=== PATIENT | female | born 1970 | race Caucasian/White ===

== ENCOUNTER 2022-07-04 08:09 | Emergency (ER) | payer MEDICAID, SELFPAY ==
[2022-07-04 08:20] VITALS: BP 110/74; PULSE 68; RESP 18; TEMP 36.3; O2SAT 96; BMI 28.0
--- NOTE | 2022-07-04 08:47 | ED_ITS ---
HPI - Chest Pain General Chief Complaint: Chest Pain Stated Complaint: Chest pain Time Seen by Provider: 07/04/22 08:11 History of Present Illness HPI narrative: This 51-year-old female comes in reporting some brief episodes of chest discomfort that occurred a few times through the night last night. She did not have any nausea, vomiting, lightheadedness, shortness of breath, or diaphoresis. 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 She does report a dry cough that is been present over the past 5 months or so. she does not feel ill with an infection. She does occasionally have some reflux symptoms. Currently she is not having any pain but as I interviewed her initially she did have some brief episodes of pain just left of the sternal border. These lasted for a few seconds. She states that this was typical for what was happening last night. The pain was sharp and very brief. Related Data Home Medications Medication Instructions Recorded Confirmed citalopram 10 mg tablet mg 07/04/22 Allergies Allergy/AdvReac Type Severity Reaction Status Date / Time amoxicillin [From Augmentin] Allergy Verified 07/04/22 08:23 clavulanic acid Allergy Verified 07/04/22 08:23 [From Augmentin] red dye Allergy Verified 07/04/22 08:23 Review of Systems Status of ROS Reports: 10 or more systems reviewed and unremarkable except as noted in History and below Narrative Constitutional: No fevers, no weight gain or loss. Eyes: No discharge. No vision changes. HENT: No congestion, no sore throat, no ear pain. Cardiovascular: No palpitations. Chest discomfort as described above. Respiratory: No shortness of breath, no wheezes, no cough. Gastrointestinal: No abdominal pain, no vomiting, no diarrhea. Genitourinary: No dysuria, no hematuria. Musculoskeletal: Normal range of motion. Skin: No rashes, no pruritis. Neurological: No dizziness, weakness, sensory change, speech change. Endo/Heme/Allergies: No bruising or bleeding. No polydipsia. Pysch: no suicidality, no anxiety, no insomnia. All other systems reviewed and are negative. Exam Narrative Exam Narrative: Constitutional: Well-developed, well-nourished, no acute distress. HEENT: Normocephalic, atraumatic. Neck: Normal range of motion. Nontender. Supple. Heart: Regular. No murmurs. Normal rate. Intact distal pulses. Chest: She does exhibit some brief episodes of pain along the left sternal border that last just a few seconds. When palpating in this area her pain is reproducible. Lungs: Clear to auscultation. No chest discomfort. No wheezes, rhonchi, or rales. Abdomen: Normal bowel sounds. Nontender. No rebound tenderness. Genitalia: Deferred. Back: No midline tenderness. Normal range of motion. Extremities: Normal range of motion. No injury. Skin: Intact. No rash. Warm. No erythema or pallor. Neurologic: No altered sensation. No weakness. Alert and oriented. Psychiatric: No suicidality. No anxiety or depression. No insomnia. Nursing notes and vitals signs are reviewed. Const Vital Signs, click to edit/add: Vital Signs - 24 hr 07/04/22 08:20 Temperature 97.3 F L Pulse Rate [Right Pulse Oximeter] 68 Respiratory Rate 18 Blood Pressure [Right Upper Arm] 110/74 Pulse Oximetry 96 Oxygen Delivery Method Room Air Course Vital Signs Vital signs: Initial Vital Signs Temperature 97.3 F L 07/04/22 08:20 Temperature Source Temporal Artery Scan 07/04/22 08:20 Pulse Rate 68 07/04/22 08:20 Respiratory Rate 18 07/04/22 08:20 Blood Pressure 110/74 07/04/22 08:20 Blood Pressure Mean 86 07/04/22 08:20 Blood Pressure Position Supine 07/04/22 08:20 Pulse Oximetry 96 07/04/22 08:20 Oxygen Delivery Method 07/04/22 08:20 Vital Signs Temperature 97.3 F L 07/04/22 08:20 Pulse Rate 68 07/04/22 08:20 Respiratory Rate 18 07/04/22 08:20 Blood Pressure 110/74 07/04/22 08:20 Pulse Oximetry 96 07/04/22 08:20 Oxygen Delivery Method 07/04/22 08:20 Temperature 97.3 F L 07/04/22 08:20 Pulse Rate 68 07/04/22 08:20 Respiratory Rate 18 07/04/22 08:20 Blood Pressure 110/74 07/04/22 08:20 Pulse Oximetry 96 07/04/22 08:20 Oxygen Delivery Method 07/04/22 08:20 MDM - Chest Pain MDM Narrative Medical decision making narrative: This patient comes in with brief episodes of chest discomfort. She does not have any cardiac risk factors and has good exercise tolerance. Her EKG is completely normal. Her pain is very brief and somewhat reproducible. I discussed further lab and imaging options with the patient who declined these in a process of shared decision making. Her pain is more likely atypical chest pain or chest wall pain, possibly costal chondritis. ECG Data Attestation: I personally reviewed and interpreted this ECG as follows: Interpretation: Normal sinus rhythm. Rate is 67 beats per minute. There are no ST or T-wave abnormalities. Discharge Plan Discharge Clinical Impression: Acute chest wall pain Patient Disposition: Home, Self-Care Condition: Stable Additional Instructions: Use [id number] medicines as needed and directed. Follow up with MD or return if worsening. Prescriptions: No Action citalopram 10 mg tablet Follow Up/Referrals: Shanelle Renee MD [Primary Care Provider] - Stand Alone Forms: [facility] Info Instructions
== END 2022-07-04 09:17 | disposition home or self-care (01) ==
LOC: ED 09:13
PROVIDERS: Emergency Provider Emergency Medicine Emergency Medical Services; PCP Family Medicine
DX: R07.89 Other chest pain (principal)
CPT/HCPCS: 99284

== ENCOUNTER 2022-11-27 01:20 | Emergency (ER) | payer BC, SELFPAY ==
--- NOTE | 2022-11-27 01:28 | ED_ITS ---
HPI - Abdominal Pain General Time Seen by Provider: 01:28 Date Seen: 11/27/22 Chief Complaint: Abdominal Pain Stated Complaint: Abdominal pain Time Seen by Provider: 11/27/22 01:27 Source: patient Mode of arrival: ambulatory Limitations: no limitations History of Present Illness HPI narrative: 52-year-old female who comes in today with abdominal pain. Has felt poorly for the last couple of days, currently on azithromycin for possible sinus infection. Woke up a couple hours ago with crampy abdominal pain and some nausea. No vomiting, no urinary symptoms, no diarrhea. Prior C-sections. Does not smoke cigarettes. Took 2 ibuprofen for this. Related Data Home Medications Medication Instructions Recorded Confirmed citalopram 10 mg tablet 10 mg PO DAILY 07/04/22 11/27/22 azithromycin 250 mg tablet 250 mg PO DIRECTED 11/27/22 11/27/22 Allergies Allergy/AdvReac Type Severity Reaction Status Date / Time amoxicillin [From Augmentin] Allergy Mild Hives Verified 11/27/22 02:06 clavulanic acid Allergy Mild Hives Verified 11/27/22 02:06 [From Augmentin] red dye Allergy Mild Hives Verified 11/27/22 02:06 Review of Systems Status of ROS Reports: 10 or more systems reviewed and unremarkable except as noted in History and below [facility] Medical History (Updated 11/27/22 @ 02:11 by Anderson Hall MD) FELIPA (generalized anxiety disorder) ?F41.1 - Generalized anxiety disorder (ICD-10) Migraine ?G43.909 - Migraine, unspecified, not intractable, without status migrainosus (ICD-10) Surgical History (Updated 11/27/22 @ 02:02 by Vincent Ray RN) History of 2 sections ?Z98.891 - History of uterine scar from previous surgery (ICD-10) History of tonsillectomy and adenoidectomy ?Z90.89 - Acquired absence of other organs (ICD-10) Social History Smoking Status: Never smoker Do you use any of these nicotine containing products: None Second hand tobacco smoke exposure: No How often do you have a drink containing alcohol: never How often do you have six or more drinks on one occasion: Never AUDIT-C Alcohol total score: 0 Non-prescribed substance use: denies use Exam Narrative: Exam Narrative: General: Well-developed and well-nourished, no acute distress Head: Atraumatic and normocephalic Eyes: Pupils are equal reactive, extraocular motions intact, conjunctiva clear ENT: External nose and ears are normal, posterior pharynx without erythema or exudate Neck: No midline cervical tenderness, full spontaneous range of motion the neck, trachea midline, no adenopathy Heart: Regular rate and rhythm no murmurs or thrills Lungs: Clear to auscultation bilaterally without wheezes or crackles Abdomen: Soft, mild diffuse tenderness,, nondistended with active bowel sounds Musculoskeletal: No tenderness, deformity, or edema Neurologic: Awake, alert, and oriented x3, no gross focal neurologic deficits, cranial nerves intact as tested Psych: Mood and affect are appropriate Skin: No rashes Const: Vital Signs, click to edit/add: Vital Signs - 24 hr 11/27/22 01:29 11/27/22 01:30 11/27/22 02:03 Temperature 98.1 F Pulse Rate 80 Pulse Rate [Right Pulse Oximeter] 81 Respiratory Rate 16 16 Blood Pressure 151/99 H Blood Pressure [Ri ght Upper Arm] 157/96 H Pulse Oximetry 99 97 94 Oxygen Delivery Me thod Room Air Course Course Hospital Course: Patient seen and examined, prior records reviewed. Differential diagnosis in cludes but not limited to gastritis, gastric ulcer, colitis, pancreatitis, acute cholecystitis, diverticulitis, appendicitis, urinary tract infection, bowel obstruction, perforation, kidney stone. Patient presents with nausea, crampy abdominal pain started couple hours ago. Finally stable on the am, mild diffuse tenderness. Labs ordered along with CT scan, Zofran and Toradol ordered for symptom management. Reevaluation(s) Reevaluation #1: Labs independently interpreted by me demonstrate normal CBC, normal patent panel , negative lipase, basic metabolic panel is reassuring. CT scan independently interpreted by me does not demonstrate any acute intra-abdominal pathology, gallbladder is decompressed with no pericholecystic fluid. Patient will be discharged with Zofran 4 mg every 6 hours as needed for nausea vomiting, also [place] 1 tablet every 6 hours as needed for pain, follow-up within 1-2 days with primary care. Time: 02:09 Vital Signs Vital signs: Initial Vital Signs Temperature 98.1 F 11/27/22 01:29 Temperature Source Temporal Artery Scan 11/27/22 01:29 Pulse Rate 81 11/27/22 01:29 Respiratory Rate 16 11/27/22 01:29 Blood Pressure 157/96 H 11/27/22 01:29 Blood Pressure Mean 116 11/27/22 01:29 Blood Pressure Position Sitting 11/27/22 01:29 Pulse Oximetry 99 11/27/22 01:29 Oxygen Delivery Method Room Air 11/27/22 01:29 Vital Signs Temperature 98.1 F 11/27/22 01:29 Pulse Rate 81 11/27/22 01:29 Respiratory Rate 16 11/27/22 01:29 Blood Pressure 157/96 H 11/27/22 01:29 Pulse Oximetry 99 11/27/22 01:29 Oxygen Delivery Method Room Air 11/27/22 01:29 Temperature 98.1 F 11/27/22 01:29 Pulse Rate 80 11/27/22 02:03 Respiratory Rate 16 11/27/22 02:03 Blood Pressure 151/99 H 11/27/22 02:03 Pulse Oximetry 94 11/27/22 02:03 Oxygen Delivery Method Room Air 11/27/22 01:29 MDM - Abdominal Pain Lab Data Labs: Lab Results 11/27/22 Range/Units 01:38 WBC 6.66 (4.50-11.00) K/uL RBC 4.52 (4.00-5.20) m/uL Hgb 12.8 (12.0-16.0) gm/dL Hct 37.4 (33.0-51.0) % MCV 83 (80-100) fL MCH 28 (26-34) pg MCHC 34 (32-36) gm/dL RDW Coeff of Pardeep 13.3 (11.5-15.5) % Plt Count 212 (140-440) K/uL Neut % (Auto) 49.2 (42.0-72.0) % Lymph % (Auto) 30.8 (20-44) % Rankin % (Auto) 13.7 H (0.0-11.0) % Eos % (Auto) 5.7 (0.0-7.0) % Baso % (Auto) 0.3 (0.0-3.0) % Neut # (Auto) 3.28 (1.7-7.0) K/uL Lymph # (Auto) 2.05 (0.90-2.90) K/uL Rankin # (Auto) 0.90 (0.00-0.90) K/UL Eos # (Auto) 0.38 (0.00-0.50) K/uL Baso # (Auto) 0.02 (0.00-0.30) K/uL Sodium 136 (135-149) mmol/L Potassium 3.6 (3.6-5.1) mmol/L Chloride 105 (96-114) mmol/L Carbon Dioxide 24 (20-32) mmol/L BUN 14 (7-30) mg/dL Creatinine 0.7 (0.5-1.5) mg/dL Estimated Creat Clear 84.60 Estimated GFR 104 ml/min Glucose 100 (60-115) mg/dL Calcium 8.5 (8.4-10.6) mg/dL Total Bilirubin 0.6 (0.1-1.5) mg/dL Direct Bilirubin 0.2 (0.0-0.5) mg/dL AST 21 (12-35) U/L ALT 19 (4-35) U/L Alkaline Phosphatase 53 (40-150) U/L Total Protein 7.0 (6.0-8.3) g/dL Albumin 4.0 (3.3-5.0) g/dL Lipase 108 (23-300) U/L Discharge Plan Discharge Clinical Impression: Abdominal pain Patient Disposition: Home, Self-Care Condition: Stable Instructions: Acute Abdominal Pain (DC) Additional Instructions: Continue ibuprofen as needed for pain. Take Zofran as needed for nausea. Liquid diet for 24 hours and then advance diet as tolerated. Activity Level: No Restrictions Discharge Diet: Regular Prescriptions: No Action citalopram 10 mg tablet 10 mg PO DAILY azithromycin 250 mg tablet 250 mg PO DIRECTED Follow Up/Referrals: Shanelle Renee MD [Primary Care Provider] - Stand Alone Forms: [employer] Info Instructions
[2022-11-27 01:29] VITALS: BP 157/96; PULSE 81; RESP 16; TEMP 36.7; O2SAT 99; BMI 27.5
[2022-11-27 01:30] VITALS: O2SAT 97
--- NOTE | 2022-11-27 01:32 | CRLHL7_ITS ---
For Patients: As a result of the Century Cures Act, medical imaging exams and procedure reports are released immediately into your electronic medical record. You may view this report before your referring provider. If you have questions, please contact your health care provider. INDICATION: Abdominal pain. TECHNIQUE: CT abdomen and pelvis acquired with 81 cc Isovue 370 IV contrast. COMPARISON: 01/24/2018. FINDINGS: Lower chest: Unremarkable. Liver: Subcentimeter hypodense foci are too small to accurately characterize but statistically likely cysts or hemangiomas. Gallbladder and bile ducts: Unremarkable. No stones or inflammation. No biliary ductal dilatation. Spleen: Normal in size. Scattered calcified granulomas. Adrenal glands: Unremarkable. No nodules. Pancreas: Unremarkable. No mass or inflammation. Kidneys: Unremarkable. No suspicious masses, stones, or hydronephrosis. GI tract: Unremarkable. Normal in caliber. No sign of mass or inflammation. Normal appendix. Lymph nodes: No lymphadenopathy. Vasculature: Unremarkable. Omentum/Peritoneum/Abdominal Wall: Tiny fat containing umbilical hernia. No free air or significant free fluid. Pelvis: Unremarkable. Bones: Unremarkable for age. IMPRESSION: No acute abdominal or pelvic abnormalities. Please note that all CT scans at this facility use dose modulation, iterative reconstruction, and/or weight-based dosing when appropriate to reduce radiation dose to as low as reasonably achievable. Dictated by Kwesi Layton MD @ 11/27/2022 2:28:32 AM (Electronically Signed)
[2022-11-27] MEDS: ONDANSETRON 2 MG/ML inj 4 MG IVP (01:38)
[2022-11-27] MEDS: KETOROLAC 15 MG/ML inj IVP (01:38)
[2022-11-27 01:46] LABS: Basophils Absolute Auto 0.02 K/uL (0.00-0.30); Basophils Percent Auto 0.3 % (0.0-3.0); Eosinophils Absolute Auto 0.38 K/uL (0.00-0.50); Eosinophils Percent Auto 5.7 % (0.0-7.0); Hematocrit 37.4 % (33.0-51.0); Hemoglobin* 12.8 gm/dL (12.0-16.0); Immature Granulocytes Abs Auto 0.02 K/uL (0.00-0.30); Immature Granulocytes Pct Auto 0.3 %; Lymphocytes Absolute Auto 2.05 K/uL (0.90-2.90); Lymphocytes Percent Auto 30.8 % (20-44); Mean Corpuscular HGB Conc 34 gm/dL (32-36); Mean Corpuscular Hemoglobin 28 pg (26-34); Mean Corpuscular Volume 83 fL (80-100); Monocytes Percent Auto 13.7 % (0.0-11.0); Neutrophils Absolute Auto 3.28 K/uL (1.7-7.0); Neutrophils Percent Auto 49.2 % (42.0-72.0); Platelet Count* 212 K/uL (140-440); RDW Coefficient of Variation % 13.3 % (11.5-15.5); Red Blood Count 4.52 m/uL (4.00-5.20); White Blood Count* 6.66 K/uL (4.50-11.00)
[2022-11-27 01:47] LABS: Slide Review Reflex No
[2022-11-27 02:00] LABS: Chloride* 105 mmol/L (96-114); Potassium* 3.6 mmol/L (3.6-5.1); Sodium* 136 mmol/L (135-149)
[2022-11-27 02:02] LABS: Carbon Dioxide* 24 mmol/L (20-32); Creatinine* 0.7 mg/dL (0.5-1.5); Estimated Glomerular Filt Rate 104 ml/min
[2022-11-27 02:03] VITALS: BP 151/99; PULSE 80; RESP 16; O2SAT 94
[2022-11-27 02:03] LABS: Alanine Aminotransferase* 19 U/L (4-35); Alkaline Phosphatase* 53 U/L (40-150); Aspartate Amino Transferase* 21 U/L (12-35); Bilirubin Direct* 0.2 mg/dL (0.0-0.5); Bilirubin Total* 0.6 mg/dL (0.1-1.5); Blood Urea Nitrogen* 14 mg/dL (7-30); Calcium* 8.5 mg/dL (8.4-10.6); Glucose* 100 mg/dL (60-115); Lipase* 108 U/L (23-300)
[2022-11-27] MEDS: HYOSCYAMINE SULFATE 0.125 MG TAB SUBLINGUAL (02:55)
[2022-11-27 03:02] VITALS: TEMP 36.7
[2022-11-27] MEDS: HYDROmorphone 0.5 mg/0.5 ml inj IVP (03:02)
[2022-11-27 03:54] VITALS: BP 135/85; PULSE 79; RESP 16; TEMP 36.7; O2SAT 94
--- NOTE | 2022-11-27 03:55 | ED.NURSE ---
d/c instructions given to patient. instymeds for zofran and oxycodone given to patient. pt. dc'd home with boyfriend.
[2022-11-27 03:57] VITALS: BP 135/85; PULSE 79; RESP 16; TEMP 36.7
== END 2022-11-27 03:57 | disposition home or self-care (01) ==
PROVIDERS: Emergency Provider Family Medicine; PCP Family Medicine
DX: R10.9 Unspecified abdominal pain (principal)
CPT/HCPCS: 36415; 74177; 80048; 80076; 83690; 85025; 94761; 96374; 96375; 99284; 99285; A9270; J1170; J1885; J2405; Q9967

== ENCOUNTER 2023-02-01 07:58 | Outpatient (CLI) | payer BC, SELFPAY ==
--- NOTE | 2023-02-01 09:11 | W.ANESCHARGE ---
Anesthesia Charges Start Date/Time Anesthesia Start Date: 02/01/23 Anesthesia Start Time: 08:45 Stop Date/Time Anesthesia Stop Date: 02/01/23 Anesthesia Stop Time: 09:10
== END 2023-02-01 07:59 | disposition home or self-care (01) ==
LOC: OP CLINIC 07:59
PROVIDERS: PCP Family Medicine; Visit Provider Internal Medicine Gastroenterology
DX: Z12.11 Encounter for screening for malignant neoplasm of colon (principal); Z80.0 Family history of malignant neoplasm of digestive organs
CPT/HCPCS: 45378; 812; J2704

== ENCOUNTER 2023-05-10 03:25 | Emergency (ER) | payer BC, SELFPAY ==
[2023-05-10 03:30] VITALS: BP 133/88; PULSE 71; RESP 18; TEMP 36.6; O2SAT 98; BMI 27.4
--- NOTE | 2023-05-10 03:55 | CRLHL7_ITS ---
For Patients: As a result of the Century Cures Act, medical imaging exams and procedure reports are released immediately into your electronic medical record. You may view this report before your referring provider. If you have questions, please contact your health care provider. INDICATION: SHORTNESS OF BREATH. COUGH TECHNIQUE: Chest 2 views. COMPARISON: July 21, 2017. FINDINGS: Cardiovascular and mediastinum: Heart size and vasculature are normal in caliber and appearance. Lungs and pleural spaces: Lungs are clear. No sign of infiltrate. No sign of pleural effusion. No pneumothorax. Bones and soft tissues: No significant findings. IMPRESSION: No evidence of acute cardiopulmonary process. Dictated by Gordon Morales MD @ 05/10/2023 5:13:42 AM (Electronically Signed)
--- NOTE | 2023-05-10 04:03 | ED.GENADULT ---
HPI - General Adult General Chief complaint: Chest Pain Stated complaint: chest pain Time Seen by Provider: 05/10/23 03:28 Source: patient Mode of arrival: ambulatory Limitations: no limitations History of Present Illness HPI narrative: 32-year-old female with no prior cardiac history presents to the emergency department with shortness of breath for about a week, chest pain worsening this speech therapist early intervention, waking her from sleep. Chest pain is located in the midsternal slightly right upper area. It is accompanied by shortness of breath on exertion, no productive cough or hemoptysis. No trauma or injury. She is evaluated by a primary care provider. It sounds like a chest x-ray was performed. She was prescribed a 5 day course of doxycycline. This is an unusual dose induration but she is confident about the medication. She was also given a course of prednisone. She claims that she is done with the antibiotic but not the prednisone. I suspect it is the other way around. She was told she had some sinus inflammation as well. She is not running fevers. No prior history of similar symptoms. No history of DVT or PE. She is not anticoagulated. She reports that the shortness of breath has not improved with the treatment. Family history notable for 2 strokes prior to age 35 in her grandmother who was then anticoagulated on Coumadin long-term but patient does not know the indications for the anticoagulation. Patient is a nonsmoker her only long-term medical problem is anxiety. Long-term medications citalopram. Reports allergy to Augmentin which she gets hives. ROS is notable for the respiratory and generalized symptoms as above, otherwise denies times 12 systems. Related Data Home Medications Medication Instructions Recorded Confirmed citalopram 10 mg tablet 10 mg PO DAILY 07/04/22 11/27/22 Allergies Allergy/AdvReac Type Severity Reaction Status Date / Time amoxicillin [From Augmentin] Allergy Mild Hives Verified 05/10/23 04:59 clavulanic acid Allergy Mild Hives Verified 05/10/23 04:59 [From Augmentin] red dye Allergy Mild Hives Verified 05/10/23 04:59 [facility] Medical History Migraine ?G43.909 - Migraine, unspecified, not intractable, without status migrainosus (ICD-10) FELIPA (generalized anxiety disorder) ?F41.1 - Generalized anxiety disorder (ICD-10) Surgical History History of 2 sections ?Z98.891 - History of uterine scar from previous surgery (ICD-10) History of tonsillectomy and adenoidectomy ?Z90.89 - Acquired absence of other organs (ICD-10) Social History Smoking Status: Never smoker Do you use any of these nicotine containing products: None Second hand tobacco smoke exposure: No How often do you have a drink containing alcohol: never How often do you have six or more drinks on one occasion: Never AUDIT-C Alcohol total score: 0 Non-prescribed substance use: denies use Exam Const: Vital Signs, click to edit/add: Vital Signs - 24 hr 05/10/23 03:30 05/10/23 04:10 05/10/23 05:35 Temperature 98 F Pulse Rate [Pulse Oximeter] 71 72 66 Respiratory Rate 18 18 18 Blood [facility] 133/88 126/85 112/81 Pulse Oximetry 98 96 96 Oxygen Delivery Me thod Room Air Room Air Room Air Documenting provider has reviewed patient's vital signs: yes Common normals: no apparent distress and alert General appearance: cooperative HENMT: Common normals: normocephalic Head and scalp: normocephalic Mouth: oral and palatal mucosa normal Eye: Common normals: conjunctivae normal General eye: normal appearance of both eyes Conjunctiva: conjunctiva(e) normal Neck & C-Spine: Common normals: full ROM and no lymphadenopathy Resp: Common normals: normal respiratory effort, no use of accessory muscles and clear to auscultation bilaterally Effort & inspection: able to speak in complete sentences Auscultation: clear to auscultation bilaterally Cardio: Common normals: regular rate, regular rhythm, S1 normal heart sound, S2 normal heart sound and no murmurs Rate: regular rate Rhythm: regular rhythm Heart sounds: S1 normal and S2 normal GI: Common normals: Normal to inspection, nondistended, normoactive bowel sounds present, soft to palpation, no hepatosplenomegaly and no masses Palpation: soft and no hepatosplenomegaly Extremity: Common normals: normal to inspection and no pedal edema Neuro: Sensorium/orientation: alert Speech: speech normal Gait (neuro): normal gait Motor exam: strength 5/5 throughout and no movement abnormalities noted Psych: Attitude: calm and engaged Thought content: normal thought content Insight: insight good Judgement: judgment good Skin: Common normals: no rashes or lesions noted General skin exam: no rashes or lesions noted Course Course ED Course: Chest pain with exertional dyspnea concerning for pulmonary embolism. Differential diagnosis also includes heart failure, acute coronary syndrome, pneumonia, asthma, upper respiratory infection, musculoskeletal etiology, among others. Recommend EKG, basic labs including D-dimer and troponins. Chest x-ray. If D-dimer abnormal, strong recommendation for CT PA. Reevaluation(s) Time of Reevaluation #1: 06:21 Reevaluation #1: Counseled patient on negative CT. Pain did improve on Toradol. Suspect viral pleuritic inflammation. Counseled on use of [id number] Tylenol and NSAIDs p.r.n.. Okay to continue performing usual activities. Counseled for follow-up in a couple of weeks if symptoms are not improving for stress test and additional workup. She verbalizes understanding and agreement. Vital Signs Vital signs: Initial Vital Signs Temperature 98 F 05/10/23 03:30 Temperature Source Temporal Artery Scan 05/10/23 03:30 Pulse Rate 71 05/10/23 03:30 Pulse Rhythm Regular 05/10/23 03:30 Respiratory Rate 18 05/10/23 03:30 Blood Pressure 133/88 05/10/23 03:30 Blood Pressure Mean 103 05/10/23 03:30 Blood Pressure Position Supine 05/10/23 03:30 Pulse Oximetry 98 05/10/23 03:30 Oxygen Delivery Method Room Air 05/10/23 03:30 Vital Signs Temperature 98 F 05/10/23 03:30 Pulse Rate 71 05/10/23 03:30 Respiratory Rate 18 05/10/23 03:30 Blood Pressure 133/88 05/10/23 03:30 Pulse Oximetry 98 05/10/23 03:30 Oxygen Delivery Method Room Air 05/10/23 03:30 Temperature 98 F 05/10/23 03:30 Pulse Rate 66 05/10/23 05:35 Respiratory Rate 18 05/10/23 05:35 Blood Pressure 112/81 05/10/23 05:35 Pulse Oximetry 96 05/10/23 05:35 Oxygen Delivery Method Room Air 05/10/23 05:35 Medical Decision Making Lab Data Lab results reviewed: Yes I reviewed the patient's lab results Lab results narrative: Mildly elevated D-dimer, uncertain significance. Did elect to perform CT PA because of this. Labs: Lab Results 05/10/23 05/10/23 Range/Units 03:47 04:01 WBC 5.30 (4.50-11.00) K/uL RBC 4.86 (4.00-5.20) m/uL Hgb 13.6 (12.0-16.0) gm/dL Hct 39.6 (33.0-51.0) % MCV 82 (80-100) fL MCH 28 (26-34) pg MCHC 34 (32-36) gm/dL RDW Coeff of Pardeep 12.2 (11.5-15.5) % Plt Count 271 (140-440) K/uL Neut % (Auto) 65.6 (42.0-72.0) % Lymph % (Auto) 27.2 (20-44) % [place] % (Auto) 6.4 (0.0-11.0) % Eos % (Auto) 0.4 (0.0-7.0) % Baso % (Auto) 0.2 (0.0-3.0) % Neut # (Auto) 3.48 (1.7-7.0) K/uL Lymph # (Auto) 1.44 (0.90-2.90) K/uL [place] # (Auto) 0.30 (0.00-0.90) K/UL Eos # (Auto) 0.02 (0.00-0.50) K/uL Baso # (Auto) 0.01 (0.00-0.30) K/uL Abs Immat Gran (auto) 0.01 (0.00-0.30) K/uL Imm/Tot Granulo (auto) 0.2 % D-Dimer Quant (PE/DVT) 0.58 H (0.00-0.50) ug/ml Sodium 138 (135-149) mmol/L Potassium 4.4 (3.6-5.1) mmol/L Chloride 106 (96-114) mmol/L Carbon Dioxide 23 (20-32) mmol/L Anion Gap 9 (7-15) mEq/L BUN 16 (7-30) mg/dL Creatinine 0.6 (0.5-1.5) mg/dL Estimated Creat Clear 102.68 Estimated GFR 108 ml/min Glucose 117 H (60-115) mg/dL Calcium 9.6 (8.4-10.6) mg/dL Troponin I < 0.01 L (0.01-0.04) ng/mL C-Reactive Protein 0.8 (0.5-1.0) mg/dL NT-Pro-B Natriuret Pep 133 pg/mL POC Troponin I 0.00 L (0.01-0.04) ng/ml Imaging Data Chest x-ray: Attestation: I have reviewed the pertinent imaging results. My impression: Couple of bit odd calcified appearing lesions but no cardiomegaly, effusions, infiltrates or bony anomalies Radiologist's impression: IMPRESSION: No evidence of acute cardiopulmonary process. Dictated by Gordon Morales MD @ 05/10/2023 5:13:[address] scan - chest: Attestation: I have reviewed the pertinent imaging results. My impression: Negative CT, old benign granulomas. No clot Radiologist's impression: IMPRESSION: 1. No evidence of an acute cardiopulmonary process. No evidence of pulmonary embolus. 2. Sequela prior granulomatous process with left calcified upper lobe granuloma, calcified left hilar nodes, and calcified granulomata within the spleen. ECG Data Attestation: I personally reviewed and interpreted this ECG as follows: Prior ECG tracings: not available for review Interpretation: Normal sinus rhythm with a few PVCs. No significant ST or T-wave abnormalities. Rate 75. Normal axis. Good R-wave progression. Normal EKG Discharge Plan Discharge Clinical Impression: Chest pain Patient Disposition: Home w/ Parent or Adult Condition: Improved Instructions: Chest Pain (DC) Additional Instructions: As we discussed, the workup on her heart, lungs, blood clotting system and other labs look great. Chest x-ray and follow-up CT are both negative. There is no pneumonia, heart failure, heart attack, blood clot in the lungs or signs of any significant infection. This is great news. Most likely you have irritation of the lining of the lungs caused by a virus. This condition is called pleurisy. The most common viruses that cause this this time of year are enterovirus or some other from milieu once. Your symptoms should improve within a couple of weeks. Would not koch into a stress test today but if you continue to have symptoms, especially on exertion, I would arrange a stress test in a couple of weeks. In the meantime, I recommend Tylenol and/or ibuprofen for the inflammation. Finish the course of medications that you have already been given, we do not need to extend that course. If you have any severe symptoms, come back to the emergency department. Activity Level: No Restrictions Discharge Diet: Regular Prescriptions: No Action citalopram 10 mg tablet 10 mg PO DAILY Follow Up/Referrals: Shanelle Renee MD [Primary Care Provider] - Stand Alone Forms: [employer] Instructions
[2023-05-10 04:10] VITALS: BP 126/85; PULSE 72; RESP 18; O2SAT 96
[2023-05-10 04:10] LABS: Basophils Absolute Auto 0.01 K/uL (0.00-0.30); Basophils Percent Auto 0.2 % (0.0-3.0); Eosinophils Absolute Auto 0.02 K/uL (0.00-0.50); Eosinophils Percent Auto 0.4 % (0.0-7.0); Hematocrit 39.6 % (33.0-51.0); Hemoglobin* 13.6 gm/dL (12.0-16.0); Immature Granulocytes Abs Auto 0.01 K/uL (0.00-0.30); Immature Granulocytes Pct Auto 0.2 %; Lymphocytes Absolute Auto 1.44 K/uL (0.90-2.90); Lymphocytes Percent Auto 27.2 % (20-44); Mean Corpuscular HGB Conc 34 gm/dL (32-36); Mean Corpuscular Hemoglobin 28 pg (26-34); Mean Corpuscular Volume 82 fL (80-100); Monocytes Percent Auto 6.4 % (0.0-11.0); Neutrophils Absolute Auto 3.48 K/uL (1.7-7.0); Neutrophils Percent Auto 65.6 % (42.0-72.0); Platelet Count* 271 K/uL (140-440); RDW Coefficient of Variation % 12.2 % (11.5-15.5); Red Blood Count 4.86 m/uL (4.00-5.20)
[2023-05-10 04:12] LABS: Slide Review Reflex No
[2023-05-10 04:23] LABS: Chloride* 106 mmol/L (96-114); Sodium* 138 mmol/L (135-149)
[2023-05-10 04:24] LABS: Potassium* 4.4 mmol/L (3.6-5.1)
[2023-05-10 04:26] LABS: Creatinine* 0.6 mg/dL (0.5-1.5); Est. Creatinine Clearance* 102.68; Estimated Glomerular Filt Rate 108 ml/min
[2023-05-10 04:27] LABS: Anion Gap 9 mEq/L (7-15); Blood Urea Nitrogen* 16 mg/dL (7-30); Carbon Dioxide* 23 mmol/L (20-32); Glucose* 117 mg/dL (60-115)
[2023-05-10 04:28] LABS: Calcium* 9.6 mg/dL (8.4-10.6); D Dimer Quantitative* 0.58 ug/ml (0.00-0.50)
[2023-05-10 04:30] LABS: C Reactive Protein* 0.8 mg/dL (0.5-1.0)
--- NOTE | 2023-05-10 04:30 | CRLHL7_ITS ---
For Patients: As a result of the Century Cures Act, medical imaging exams and procedure reports are released immediately into your electronic medical record. You may view this report before your referring provider. If you have questions, please contact your health care provider. INDICATION: SOB, CASTLILO, COUGH, CHEST PAIN TECHNIQUE: CT chest PE was acquired with 95 cc Isovue 370 IV contrast. COMPARISON: None. FINDINGS: Heart and vasculature: Contrast opacification of the pulmonary arterial tree is adequate. No sign of pulmonary embolism. Heart size is normal. Thoracic aorta and pulmonary artery are normal in caliber. Lungs and pleural: No suspicious nodules or infiltrates. No pleural effusions, pleural thickening, or pneumothorax. Left upper lobe calcified granuloma. Lymph nodes/mediastinum: No mediastinal, hilar, or axillary adenopathy. Calcified left hilar nodes. Chest wall: No masses. Upper abdomen: Sequela calcified granulomata within the spleen. Bones: Unremarkable for age. IMPRESSION: 1. No evidence of an acute cardiopulmonary process. No evidence of pulmonary embolus. 2. Sequela prior granulomatous process with left calcified upper lobe granuloma, calcified left hilar nodes, and calcified granulomata within the spleen. Please note that all CT scans at this facility use dose modulation, iterative reconstruction, and/or weight-based dosing when appropriate to reduce radiation dose to as low as reasonably achievable. Dictated by Gordon Morales MD @ 05/10/2023 6:08:46 AM (Electronically Signed)
[2023-05-10 04:38] LABS: NT Pro B Type NatriureticPept* 133 pg/mL
[2023-05-10 04:39] LABS: Troponin I* < 0.01 ng/mL (0.01-0.04)
[2023-05-10] MEDS: KETOROLAC 15 MG/ML inj IVP (05:02)
[2023-05-10 05:35] VITALS: BP 112/81; PULSE 66; RESP 18; O2SAT 96
== END 2023-05-10 06:30 | disposition home or self-care (01) ==
PROVIDERS: Emergency Provider Family Medicine; PCP Family Medicine
DX: R07.9 Chest pain, unspecified (principal)
CPT/HCPCS: 36415; 71046; 71275; 80048; 83880; 84484; 85025; 85379; 86140; 96374; 99284; 99285; J1885; Q9967

== ENCOUNTER 2023-08-11 10:57 | Emergency (ER) | payer BC, SELFPAY ==
[2023-08-11 11:12] VITALS: BP 140/89; PULSE 69; RESP 16; TEMP 36.4; O2SAT 97; BMI 30.8
--- NOTE | 2023-08-11 11:20 | ED.NURSE ---
1107-In Triage. 1112-Spoke with Dr. Bronson about symptoms, states no Stroke Code to be called at this time.
[2023-08-11 11:46] VITALS: BP 133/109; PULSE 69; RESP 14; O2SAT 96
--- NOTE | 2023-08-11 12:04 | CRLHL7_ITS ---
For Patients: As a result of the Century Cures Act, medical imaging exams and procedure reports are released immediately into your electronic medical record. You may view this report before your referring provider. If you have questions, please contact your health care provider. Indication: Left-sided numbness Technique: Multiplanar, multisequence MRI of the brain obtained without contrast. Comparison: MRI brain 09/12/2014, 03/12/2014 Findings: The ventricles and cortical sulci appear within normal limits for age. No hydrocephalus or herniation. No acute/subacute ischemia, intracranial hemorrhage or abnormal extra-axial fluid collection. Small foci of FLAIR hyperintensity are scattered throughout the supratentorial white matter bilaterally, mildly progressed relative to 2015. Small chronic lacunar infarct in the left periatrial white matter, stable from previous. Midline structures are unremarkable. Major expected intracranial flow voids are visualized. Bone marrow signal is unremarkable. No suspicious findings in the regional soft tissues. Scattered paranasal sinus mucosal thickening. Nonspecific left mastoid effusion, similar to 2015. Orbits are unremarkable. Impression: 1. No evidence of acute intracranial abnormality. Stable small chronic lacunar infarct in the left periatrial white matter. 2. Scattered nonspecific FLAIR hyperintense foci throughout the supratentorial white matter are mildly progressed relative to 2015. These are nonspecific, but can be seen in the setting of migraine headaches, previous trauma, mild chronic microangiopathy, or other remote insult. 3. Nonspecific left mastoid effusion, similar to 2015. Dictated by Araceli Valverde MD @ 08/11/2023 1:57:46 PM (Electronically Signed)
--- NOTE | 2023-08-11 12:08 | ED_ITS ---
HPI - General Adult General Chief complaint: Neuro Symptoms/Altered Deficit Stated complaint: Possible mini stroke--L side numb Time Seen by Provider: 08/11/23 11:39 History of Present Illness HPI narrative: Very pleasant 53-year-old female who presents to the ER today accompanied by her boyfriend. She presents with concern for abnormal neurologic symptoms, beginning 4 days ago, on Wednesday. She has been coronavirus and is currently on day 7 of illness. Symptoms began last week with cough, nasal congestion, itchy watery eyes, headache, body aches, and fatigue. She initially had a negative at home COVID test and then had a positive at home COVID test 6 days ago. She has been isolating at home. She has previously vaccinated. She did not seek treatment with Paxlovid because she does not have any high risk medical conditions. Overall she says her coronavirus illness symptoms have been getting better. Headaches are better. Fevers are gone. Cough is still present but much better. She is not short of breath. No blurry vision. No nausea or vomiting or diarrhea. Since Wednesday she has noticed new numbness affecting the left side of her body. This includes her left face, left tongue, left arm, and left leg. She says it feels a little bit tingly like when her foot falls asleep but effects or whole body. Perhaps is slightly weak as well. She is not having any trouble using her left arm or walking with her left leg toe. Symptoms are not getting better. If anything they are getting a bit worse day after day. No other symptoms with that. No new headaches. No head trauma. No stiff neck. No blurry vision or visual field deficit. She has no previous history of strokes, hypertension, dyslipidemia, or any known risk factors. She does have history of migraine headaches. No history of MS. She is not anticoagulated. No history of AFib. Related Data Home Medications Medication Instructions Recorded Confirmed citalopram 10 mg tablet 10 mg PO DAILY 07/04/22 08/11/23 Allergies Allergy/AdvReac Type Severity Reaction Status Date / Time amoxicillin [From Augmentin] Allergy Mild Hives Verified 05/10/23 04:59 clavulanic acid Allergy Mild Hives Verified 05/10/23 04:59 [From Augmentin] red dye Allergy Mild Hives Verified 05/10/23 04:59 [facility] Medical History Migraine ?G43.909 - Migraine, unspecified, not intractable, without status migrainosus (ICD-10) FELIPA (generalized anxiety disorder) ?F41.1 - Generalized anxiety disorder (ICD-10) Surgical History History of 2 sections ?Z98.891 - History of uterine scar from previous surgery (ICD-10) History of tonsillectomy and adenoidectomy ?Z90.89 - Acquired absence of other organs (ICD-10) Social History Smoking Status: Never smoker Do you use any of these nicotine containing products: None Second hand tobacco smoke exposure: No How often do you have a drink containing alcohol: never How often do you have six or more drinks on one occasion: Never AUDIT-C Alcohol total score: 0 Non-prescribed substance use: denies use Exam Narrative: Exam Narrative: Constitutional: Appears well-developed and well-nourished. Alert. Conversant. Non toxic. HENT: Head: Atraumatic. Nose: Nose normal. Mouth/Throat: Oral mucosa is clear and moist. no trismus. Pharynx normal. Tonsils symmetric. No tonsillar enlargement, erythema, or exudate. Eyes: Conjunctivae normal. EOM normal. Pupils equal, round, and reactive to light. No scleral icterus. Neck: Normal range of motion. Neck supple. No tracheal deviation present. No JVD. Cardiovascular: Normal rate, regular rhythm. No gallop. No friction rub. No murmur heard. Symmetric radial artery pulses Pulmonary/Chest: Effort normal. No stridor. No respiratory distress. No wheezes. No rales. No rhonchi . No tenderness. Abdominal: Soft. Bowel sounds normal. No distension. No mass. No tenderness. No rebound. No guarding. Musculoskeletal: RUE: Normal range of motion. No tenderness. No deformity LUE: Normal range of motion. No tenderness. No deformity RLE: Normal range of motion. No edema. No tenderness. No deformity LLE: Normal range of motion. No edema. No tenderness. No deformity Mental status normal. Attention normal. Alert and oriented x3. GCS 15. Memory normal. Speech fluent. Cognition normal. Cranial Nerves intact II-XII except I did not formally test gag or visual acuity. EOMI. Palate elevates symmetrically and tongue protrudes in the midline. Strength: 5/5 trapezius on the right and left 5/5 deltoid on the right and left 5/5 biceps on the right and left 5/5 triceps on the right and left 5/5 packing machine feeder on the right and left 5/5 thumb opposition on the right and le ft 5/5 finger abduction on the right and le ft 5/5 hip flexors (L3) on the right and le ft 5/5 quadriceps (L4) on the right and lef t 5/5 tibialis anterior on the right and l eft 5/5 EHL (L5) on the right and left 5/5 gastrocnemius (S1) on the right and left 5/5 hamstring on the right and left Sensation: She is able to feel my light touch bilaterally including all 3 dermatomes of so cranial nerve 5, C5, C6, C7, C8, T1, L3, L4, L5. However she has subjective paresthesias affecting her entire left side of her body including her left face, left arm (all dermatomes) and left leg) all dermatomes).. Finger to nose and coordination normal. Gait normal. Romberg normal. Skin: Skin is warm and dry. No rash noted. No pallor. Normal capillary refill. Psychiatric: Normal mood. Normal affect. Const: Vital Signs, click to edit/add: Vital Signs - 24 hr 08/11/23 11:12 08/11/23 11:46 08/11/23 13:30 Temperature 97.6 F Pulse Rate 69 70 Pulse Rate [Pulse Oximeter] 69 Respiratory Rate 16 14 14 Blood Pressure 133/109 H Blood Pressure [Le ft Upper Arm] 140/89 H Pulse Oximetry 97 96 98 Oxygen Delivery Me thod Room Air 08/11/23 14:00 08/11/23 16:04 Temperature 97.6 F Pulse Rate 68 Pulse Rate [Pulse Oximeter] 69 Respiratory Rate 12 12 Blood Pressure Blood Pressure [Le ft Upper Arm] 140/89 H Pulse Oximetry 97 Oxygen Delivery Me thod Course Vital Signs Vital signs: Initial Vital Signs Temperature 97.6 F 08/11/23 11:12 Temperature Source Temporal Artery Scan 08/11/23 11:12 Pulse Rate 69 08/11/23 11:12 Pulse Rhythm Regular 08/11/23 11:12 Respiratory Rate 16 08/11/23 11:12 Blood Pressure 140/89 H 08/11/23 11:12 Blood Pressure Mean 106 H 08/11/23 11:12 Blood Pressure Position Supine 08/11/23 11:12 Pulse Oximetry 97 08/11/23 11:12 Oxygen Delivery Method Room Air 08/11/23 11:12 Vital Signs Temperature 97.6 F 08/11/23 11:12 Pulse Rate 69 08/11/23 11:12 Respiratory Rate 16 08/11/23 11:12 Blood Pressure 140/89 H 08/11/23 11:12 Pulse Oximetry 97 08/11/23 11:12 Oxygen Delivery Method Room Air 08/11/23 11:12 Temperature 97.6 F 08/11/23 16:04 Pulse Rate 69 08/11/23 16:04 Respiratory Rate 12 08/11/23 16:04 Blood Pressure 140/89 H 08/11/23 16:04 Pulse Oximetry 97 08/11/23 14:00 Oxygen Delivery Method Room Air 08/11/23 11:12 Medical Decision Making MDM Narrative Medical decision making narrative: Very pleasant generally healthy 53-year-old female present to the ER today with a 4 day history of a symptoms affecting the left side of her body. Predominantly she has a vague paresthesia. She does have intact ability to sense light touch on that side but it just feels a bit tingly. Also perhaps a little bit of weakness, but it is unclear if she is truly week or just feeling numb. She does not have any objective weakness on my neuro exam. Symptoms involve her left face, left tongue as well as her left arm and left leg. Differential would include cervical or lumbar spine pathology but that is low much less likely given the involvement of the head, face, tongue. Concern here is for possible central lesions such as acute stroke, MS. She did have a headache last week associated with her COVID but does not have any persistent headache to suggest migraine phenomena. Nor does she have any ongoing headache or fever or neck stiffness to suggest meningitis or encephalitis. No headache to suggest subarachnoid or cervical artery dissection. No nausea or vomiting or blurry vision to suggest elevated ICP. No history of hypercoagulability to suggest cerebral venous sinus thrombosis. No neck pain or back pain. MRI is obtained to look for stroke or MS or other lesion and is essentially normal. It does show nonspecific hyperintensities which can be seen in patients with migraine. No acute stroke or tumor or demyelinating lesion. Without a clear explanation for her left-sided paresthesias I contacted Neurology, Dr. Franco, through [facility] in the [facility]. I discussed the patient's recent COVID, 4 day history of symptoms. He suggests that at this poi nt is reassuring that the MRI is normal. Etiology of the paresthesias is unclear but could be a neuropathy related to COVID. He would recommend watchful waiting in anticipation that will likely resolve. Outpatient neurology follow- up. Discussed with the patient and her boyfriend. They are agreeable to arrange close outpatient neurology follow-up. We also discussed that if symptoms should change or worsen, I want them to come back to the ER right away for re- evaluation. Lab Data Labs: Lab Results 08/11/23 08/11/23 Range/Units 13:07 13:07 WBC 5.70 (4.50-11.00) K/uL RBC 5.11 (4.00-5.20) m/uL Hgb 13.9 (12.0-16.0) gm/dL Hct 42.8 (33.0-51.0) % MCV 84 (80-100) fL MCH 27 (26-34) pg MCHC 33 (32-36) gm/dL RDW Coeff of Pardeep 13.0 (11.5-15.5) % Plt Count 254 (140-440) K/uL Neut % (Auto) 56.4 (42.0-72.0) % Lymph % (Auto) 35.4 (20-44) % [place] % (Auto) 5.8 (0.0-11.0) % Eos % (Auto) 1.8 (0.0-7.0) % Baso % (Auto) 0.4 (0.0-3.0) % Neut # (Auto) 3.22 (1.7-7.0) K/uL Lymph # (Auto) 2.02 (0.90-2.90) K/uL [place] # (Auto) 0.30 (0.00-0.90) K/UL Eos # (Auto) 0.10 (0.00-0.50) K/uL Baso # (Auto) 0.02 (0.00-0.30) K/uL Abs Immat Gran (auto) 0.01 (0.00-0.30) K/uL Imm/Tot Granulo (auto) 0.2 % INR 0.87 L (0.91-1.10) APTT Cancelled 26 Sodium 138 (135-149) mmol/L Potassium 4.2 (3.6-5.1) mmol/L Chloride 101 (96-114) mmol/L Carbon Dioxide 28 (20-32) mmol/L Anion Gap 9 (7-15) mEq/L BUN 11 (7-30) mg/dL Creatinine 0.6 (0.5-1.5) mg/dL Estimated Creat Clear 97.57 Estimated GFR 107 ml/min Glucose 93 (60-115) mg/dL Calcium 9.2 (8.4-10.6) mg/dL Troponin I < 0.01 L (0.01-0.04) ng/mL ECG Data Attestation: I personally reviewed and interpreted this ECG as follows: Interpretation: Normal sinus rhythm rate 63 AK 172 QRS axis normal axis. No pathologic Q-waves. Low-voltage QRS. ST segment/T wave: No ST segment elevation or depression. QTc: 407 Discharge Plan Discharge Clinical Impression: Left sided numbness Patient Disposition: Home, Self-Care Condition: Stable Instructions: Paresthesia (ED) Additional Instructions: At this time, the cause of your numbness is not clear. Neurology speculates th at this is probably a neuropathy caused by coronavirus. They expect that should get better over the next few days. Please return to the ER immediately if you have worsening numbness, progressing weakness or if you develop any other concerning symptoms such as headache, fever, blurry vision, nausea or vomiting, or confusion. Please follow-up with your regular doctor to arrange a neurology follow-up appointment. If you are not completely improved within 1 week, you should be rechecked by a neurologist, or by your doctor, or return to the ER. Prescriptions: No Action citalopram 10 mg tablet 10 mg PO DAILY Follow Up/Referrals: Shanelle Renee MD [Primary Care Provider] - Stand Alone Forms: [facility] Info Instructions
[2023-08-11 13:18] LABS: Basophils Absolute Auto 0.02 K/uL (0.00-0.30); Basophils Percent Auto 0.4 % (0.0-3.0); Eosinophils Percent Auto 1.8 % (0.0-7.0); Hematocrit 42.8 % (33.0-51.0); Hemoglobin* 13.9 gm/dL (12.0-16.0); Immature Granulocytes Abs Auto 0.01 K/uL (0.00-0.30); Immature Granulocytes Pct Auto 0.2 %; Lymphocytes Absolute Auto 2.02 K/uL (0.90-2.90); Lymphocytes Percent Auto 35.4 % (20-44); Mean Corpuscular HGB Conc 33 gm/dL (32-36); Mean Corpuscular Hemoglobin 27 pg (26-34); Mean Corpuscular Volume 84 fL (80-100); Monocytes Percent Auto 5.8 % (0.0-11.0); Neutrophils Absolute Auto 3.22 K/uL (1.7-7.0); Neutrophils Percent Auto 56.4 % (42.0-72.0); Platelet Count* 254 K/uL (140-440); Red Blood Count 5.11 m/uL (4.00-5.20)
[2023-08-11 13:25] LABS: Slide Review Reflex No
[2023-08-11 13:30] VITALS: PULSE 70; RESP 14; O2SAT 98
[2023-08-11 13:32] LABS: Chloride* 101 mmol/L (96-114)
[2023-08-11 13:33] LABS: Potassium* 4.2 mmol/L (3.6-5.1); Sodium* 138 mmol/L (135-149)
[2023-08-11 13:35] LABS: Anion Gap 9 mEq/L (7-15); Carbon Dioxide* 28 mmol/L (20-32); Creatinine* 0.6 mg/dL (0.5-1.5); Est. Creatinine Clearance* 97.57; Estimated Glomerular Filt Rate 107 ml/min
[2023-08-11 13:36] LABS: Blood Urea Nitrogen* 11 mg/dL (7-30); Calcium* 9.2 mg/dL (8.4-10.6); Glucose* 93 mg/dL (60-115)
[2023-08-11 13:38] LABS: INR 0.87 (0.91-1.10); Prothrombin Time 12.3 Seconds
[2023-08-11 13:39] LABS: Partial Thromboplastin Time* 26 Seconds (23-33)
[2023-08-11 13:48] LABS: Troponin I* < 0.01 ng/mL (0.01-0.04)
[2023-08-11 14:00] VITALS: PULSE 68; RESP 12; O2SAT 97
[2023-08-11 16:04] VITALS: BP 140/89; PULSE 69; RESP 12; TEMP 36.4
== END 2023-08-11 16:05 | disposition home or self-care (01) ==
PROVIDERS: Emergency Provider Emergency Medicine; PCP Family Medicine
DX: R20.0 Anesthesia of skin (principal)
CPT/HCPCS: 36415; 70551; 80048; 84484; 85025; 85610; 85730; 99283; 99284

== ENCOUNTER 2024-03-16 21:44 | Emergency (ER) | payer BC, SELFPAY ==
[2024-03-16 21:51] VITALS: BP 130/86; PULSE 76; RESP 16; TEMP 36.1; O2SAT 98; BMI 27.8
--- NOTE | 2024-03-16 22:01 | PC.NURSE ---
patient refused to change into gown.
--- NOTE | 2024-03-16 22:16 | ED.EAR ---
HPI - Ear Problem General Date Seen: 03/16/24 Chief complaint: Ear/Nose/Throat Problem Stated complaint: right ear pain Time Seen by Provider: 03/16/24 22:06 Source: patient Mode of arrival: ambulatory Limitations: no limitations History of Present Illness HPI Narrative: Patient is a 53-year-old female who started noticing some discomfort in her right ear this morning. She just had the right ear pierced for a 3rd time a couple of days ago. She has not noticed any drainage from the piercing site. She feels that her pain is more deep inside the ear than on the outside. There has been no drainage. She denies any recent time in the pool or the [place]. The left ear feels fine. Her hearing is preserved. She called her clinic and they could not get her in and she thought that she would be up all night because of the discomfort so she came to the ER instead. Related Data Home Medications ?Medication ?Instructions ?Recorded ?Confirmed citalopram 10 mg tablet 10 mg PO DAILY 07/04/22 08/11/23 Allergies Allergy/AdvReac Type Severity Reaction Status Date / Time amoxicillin [From Augmentin] Allergy Mild Hives Verified 05/10/23 04:59 clavulanic acid Allergy Mild Hives Verified 05/10/23 04:59 [From Augmentin] red dye Allergy Mild Hives Verified 05/10/23 04:59 Review of Systems Narrative: Review of systems is outlined above otherwise noted to be negative. [facility] Medical History Migraine ?G43.909 - Migraine, unspecified, not intractable, without status migrainosus (ICD-10) FELIPA (generalized anxiety disorder) ?F41.1 - Generalized anxiety disorder (ICD-10) Surgical History History of 2 sections ?Z98.891 - History of uterine scar from previous surgery (ICD-10) History of tonsillectomy and adenoidectomy ?Z90.89 - Acquired absence of other organs (ICD-10) Social History Smoking Status: Never smoker Do you use any of these nicotine containing products: None Second hand tobacco smoke exposure: No How often do you have a drink containing alcohol: never How often do you have six or more drinks on one occasion: Never AUDIT-C Alcohol total score: 0 Non-prescribed substance use: denies use Exam Narrative: Exam Narrative: Vitals noted. HEENT: Conjunctiva clear. Tympanic membranes are pearly white bilaterally. There is some tenderness with manipulation of the right external ear. There is some redness of the external ear as well as some warmth. This centers around the recent piercing site. Posterior pharynx is clear without erythema or exudate. Neck is supple without adenopathy, thyromegaly, carotid bruit. Lungs: Clear to auscultation in all abdul. No wheezes, rales, rhonchi. Heart: Regular rate and rhythm without murmur. Neurologic: Awake, alert, fully oriented. Neurologic exam is nonfocal. Const: Vital Signs, click to edit/add: Vital Signs - 24 hr 03/16/24 21:51 Temperature 97 F L Pulse Rate [Pulse Oximeter] 76 Respiratory Rate 16 Blood Pressure [Ri ght Upper Arm] 130/86 Pulse Oximetry 98 Oxygen Delivery Me thod Room Air Course Course ED Course: Patient is seen and examined. This is certainly not a classic otitis externa but her symptoms are more consistent with that and she certainly has signs of an early cellulitis around her piercing. I think she would do best with an oral antibiotic rather than ear drops. Vital Signs Vital signs: Initial Vital Signs Temperature 97 F L 03/16/24 21:51 Temperature Source Temporal Artery Scan 03/16/24 21:51 Pulse Rate 76 03/16/24 21:51 Respiratory Rate 16 03/16/24 21:51 Blood Pressure 130/86 03/16/24 21:51 Blood Pressure Mean 100 03/16/24 21:51 Blood Pressure Position Sitting 03/16/24 21:51 Pulse Oximetry 98 03/16/24 21:51 Oxygen Delivery Method Room Air 03/16/24 21:51 Vital Signs Temperature 97 F L 03/16/24 21:51 Pulse Rate 76 03/16/24 21:51 Respiratory Rate 16 03/16/24 21:51 Blood Pressure 130/86 03/16/24 21:51 Pulse Oximetry 98 03/16/24 21:51 Oxygen Delivery Method Room Air 03/16/24 21:51 Temperature 97 F L 03/16/24 21:51 Pulse Rate 76 03/16/24 21:51 Respiratory Rate 16 03/16/24 21:51 Blood Pressure 130/86 03/16/24 21:51 Pulse Oximetry 98 03/16/24 21:51 Oxygen Delivery Method Room Air 03/16/24 21:51 Discharge Plan Discharge Clinical Impression: Otitis externa Patient Disposition: Home, Self-Care Condition: Stable Instructions: Swimmer's Ear (ED) Additional Instructions: Keflex 500 mg 3 times daily x7 days. Hot pack your ear. Use Tylenol or ibuprofen for pain. Follow-up with your PCP if symptoms are not improving. Prescriptions: No Action citalopram 10 mg tablet 10 mg PO DAILY Follow Up/Referrals: Shanelle Renee MD [Primary Care Provider] - Stand Alone [facility]
--- OUTSIDE RECORDS SUMMARY | 2024-03-16 22:21 | XMS_ITS | Clinical Summary ---
Author Organization [facility] Address [address] [place] [id number] Care Team Providers Care Test Rider Name Role Phone Shanelle Renee Primary Care Provider Allergies Active Allergy Reactions Criticality Noted Date Comments Amoxicillin-Pot Clavulanate Hives,Rash Low 08/24/19 07 D&C Red #22 Nausea and Vomiting 05/16/2007 Morphine Itching 04/04/2013 Red Dye Nausea Low 10/02/2020 Medications Medication Sig Dispensed Refills Start Date End Date Status ibuprofen (ADVIL/MOTRIN) 200 MG tablet Take 200 mg by mouth Took 2 tabs around 400p.m. today Active Social History Tobacco Use Types Packs/Day Years Used Date Smoking Tobacco: Never Smokeless Tobacco: Never Tobacco Cessation:Counseling Given: Not Answered Alcohol Use Standard Drinks/Week Comments Not Currently 0 (1 standard drink = 0.6 oz pur e alcohol) Adolescent Education Answer Date Record ed Getting School Help Needed Not on file 05/08 Sex and Gender Information Value Date Recorded Sex Assigned at Not on file Gender Identity Not on file Sexual Orientation Not on file Last Filed Vital Signs Vital Sign Reading Time Taken Comments Blood Pressure 109/73 11/02/2022 7:40 PM CDT Pulse 72 11/02/2022 5:38 PM CDT Temperature 36.5 ??C (97.7 ??F) 11/02/2022 5:15 PM CD T Respiratory Rate 16 11/02/2022 7:40 PM CDT Oxygen Saturation 96% 11/02/2022 7:40 PM CDT Inhaled Oxygen Concentration - - Weight 87.5 kg (193 lb) 11/02/2022 5:15 PM CDT Height 167.6 cm (5' 6) 11/02/2022 5:15 PM CDT Body Mass Index 31.15 11/02/2022 5:15 PM CDT Plan of Treatment Health Maintenance Due Date Last Done Comments ADVANCE CARE PLANNING 1970 ANNUAL REVIEW OF HM ORDERS 1970 CT COLONOGRAPHY 1970 FIT 1970 FLEX SIG 1970 YEARLY PREVENTIVE VISIT 1970 sDNA (Cologuard) 1970 COLONOSCOPY 1980 COLORECTAL CANCER SCREENING 1980 HIV SCREENING 1985 HEPATITIS C SCREENING 1988 PAP 1991 LIPID 2010 ZOSTER IMMUNIZATION (1 of 2) 2020 COVID-19 Vaccine ( season) 2023 12/27/2020, 12/06/2020 PHQ-2 (once per calendar year) 2023 INFLUENZA VACCINE (#1) 2024 8, 09/21/2017, 06/24/2016, Additional history exists MAMMO SCREENING 07/29/2024 07/29/2022 GLUCOSE 11/02/2025 11/02/2022 DTAP/TDAP/TD IMMUNIZATION (3 - Td or Tdap) 09/27/2027 09/27/2017, 06/21/2007, 12/13/1997 HEPATITIS B IMMUNIZATION Completed 012, 11/03/2002, 12/13/1997 HPV IMMUNIZATION Aged Out No longer e ligible based on patient's age to complete this topic IPV IMMUNIZATION Aged Out No longer e ligible based on patient's age to complete this topic MENINGITIS IMMUNIZATION Aged Out No l onger eligible based on patient's age to complete this topic Pneumococcal Vaccine: Pediatrics (0 to 5 Years) and At-Risk Patients (6 to 64 Years) Aged Out No longer eligible based on patient's age to complete this topic RSV MONOCLONAL ANTIBODY Aged Out No l onger eligible based on patient's age to complete this topic Procedures Procedure Name Priority Date/Time Associated Diagnosis Comments BASIC METABOLIC PANEL STAT 11/02/2022 5:13 PM CDT from Last 3 Months or Most Recently Relevant to Health Maintenance Results * (ABNORMAL) Basic metabolic panel (11/02/2022 5:13 PM CDT) Sodium 139 136 - 145 mmol/L 11/02/2022 5:36 PM CDT LABORATORY Potassium 3.9 3.4 - 5.3 mmol/L 11/02/2022 5:36 PM CDT LABORATORY Chloride 103 98 - 107 mmol/L 11/02/2022 5:36 PM CDT LABORATORY Carbon Dioxide (CO2) 26 22 - 29 mmol/L 11/02/2022 5:36 PM CDT LABORATORY Anion Gap 10 7 - 15 mmol/L 11/02/2022 5:36 PM CDT LABORATORY Urea Nitrogen 14.2 6.0 - 20.0 mg/dL 11/02/2022 5:36 PM CDT LABORATORY Creatinine 0.67 0.51 - 0.95 mg/dL 11/02/2022 5:36 PM CDT LABORATORY Calcium 9.2 8.6 - 10.0 mg/dL 11/02/2022 5:36 PM CDT LABORATORY Glucose 106(H) 70 - 99 mg/dL 11/02/2022 5:36 PM CDT LABORATORY GFR Estimate >90 >60 mL/min/1.7 3m2 11/02/2022 5:36 PM CDT LABORATORY Comment:eGFR calculated usin g 2020 CKD-EPI equation. Blood BLOOD SPECIMEN / Unknown Venipuncture / Unknown 11/02/2022 5:13 PM CDT 11/02/2022 5:16 PM CDT Scooby Spring MD LAB - BLOOD ORDERABL ES LABORATORY [facility] [address], [address] [place] [address], [place] [phone] from Last 3 Months or Most Recently Relevant to Health Maintenance Care Teams Test Rider Relationship Specialty Start Date End Date Shanelle Renee [address] [place] [id number] PCP - General Family Medicine 11/02/22
--- OUTSIDE RECORDS SUMMARY | 2024-03-16 22:22 | XMS_ITS | Clinical Summary ---
Author Organization [facility] Address [place], [place] [address] Care Team Providers Care Quarry Supervisor Open Pit Name Role Phone Shanelle Renee MD Primary Care Provide r Allergies Active Allergy Reactions Criticality Noted Date Comments Amoxicillin-Pot Clavulanate Hives 08/24/19 07 Clavulanic Acid Hives Low 07/04/2022 Morphine Itching 04/04/2013 Red Dye Nausea Only Low 10/02/2020 D And C Red No.22 Vomiting 05/16/2007 Medications Medication Sig Dispensed Refills Start Date End Date Status cholecalciferol (VITAMIN D) 1,000 unit capsule Take 1 capsule by mouth once daily. 0 09/21/2017 Active melatonin 1 mg Take 1 tablet by mouth at bedtime. 0 01/17/2018 Active albuterol HFA (PRO-AIR; VENTOLIN; PROVENTIL) 90 mcg/actuation inhalerIndications :Bronchitis Inhale 2 Puffs by mouth 4 times daily if needed for Wheezing 1st choice. 1 Each 3 06/18/2022 Active LORazepam (ATIVAN) 1 mg tabletIndications: Fear of flying Take 1 mg tablet orally 1 hour prior to flight. May repeat 1 dose if needed in 4-6 hours. 10 Tablet 06/24/2023 Active citalopram (CELEXA) 10 mg tabletIndications: Anxiety state TAKE 1 TABLET(10 MG) BY MOUTH EVERY MORNING 90 Tablet 12/06/2023 Active predniSONE (DELTASONE) 20 mg tabletIndications: Allergic contact dermatitis, unspecified trigger 40 mg qd for 3 days, then 20 mg qd for 3 days, then 10 mg qd for 4 days. 11 Tablet 01/06/2024 Active hydrOXYzine HCL (ATARAX) 25 mg tabletIndications: Allergic contact dermatitis, unspecified trigger Take 1 Tablet (25 mg) by mouth every 6 hours if needed for Itching. 25 Tablet 01/06/2024 03/06/2024 Discontinued (*Patient states no longer taking) Active Problems Problem Noted Date Diagnosed Date Mild intermittent reactive a irway disease without complication 01/10/2024 FELIPA (generalized anxiety disorder) 01/09/2015 Migraines 11/25/2011 Allergic rhinitis, cause unspecified 05/16/2007 Hypoglycemia, unspecified 05/16/2007 Resolved Problems Problem Noted Date Diagnosed Date Resolved Date Supervision of high-risk pre gnancy of elderly multigravida 08/28/2009 07/18/2014 Encounters Date Type Department Care Team Description 03/01/2024 10:15 AM CDT Orders Only [facility] [address] [place] [address] Lab, [facility] Lab 03/01/2024 9:20 AM CDT Office Visit [facility] Neuroscience Lillie [facility] [address] [place] [address] Ollie Dorantes MD Consult (Left sided lacunar infarction Ref: Dr. Slater/MR Head/Brain 08/11/23, 09/09/14, 03/12/14 @ [facility]/CT Head 09/08/14, 03/12/14 @ [facility]) 03/01/2024 Travel 01/06/2024 3:10 PM CDT Office Visit [facility] [address] [place] [address] Lula Villeda PA Derm Problem (Insane itchiness at base of neck and scalp-started over two weeks ago) 01/06/2024 Travel 12/24/2023 Medical Messaging [facility] [address] [place] [address] Shanelle Renee MD Jana? s MRI 12/22/2023 Telephone [facility] Neuroscience Lillie [address] [address] Ollie Dorantes MD Appointment 12/21/2023 1:35 PM CDT Office Visit [facility] [address] [facility] [address] Leonarda Slater MD UTI (2 days, frequency, burning, pain) 12/21/2023 Telephone [facility] [address] [facility] [address] Leonarda Slater MD Follow Up 12/21/2023 Travel from Last 3 Months Immunizations Name Administration Dates Next Due COVID-19 vaccine (Picwing NTImprove Digital 30mcg/0.3mL) PFMDV 12/27/2020,12/06/2020 Hepatitis A (Adult) 07/18/2014 Hepatitis B (Adult) 11/25/2011,11/03/2002,1997 Imovax 04/19/2021, 1,04/05/2021, 021 Influenza, IIV3 (Age >=3 years) 05/23/2013,09/19 Influenza, IIV4 06/09/2018, 8,06/24/2016, 015 MMR 03/06/2010 Td (Age >=7 Years) 09/27/2017,12/13/1997 Tdap 06/21/2007 Family History Medical History Relation Name Comments Other Brother vasculitis Diabetes Father Heart Disease Father CHF Cancer Maternal Grandfather lung Cancer Maternal Grandmother Cancer-breast Maternal Grandmother in [place] Parkinsonism Maternal Uncle Cancer Mother Cancer-breast Mother in lung Cancer-colon Other 1 Great GrandMother Cancer-colon Other 2 Great Aunt's (Jessica) Cancer-colon Other 3 Great Aunt's Jenna Cancer-colon Paternal Grandmother Diabetes Paternal Grandmother Heart Disease Paternal Grandmother Cancer-ovarian No Family History Relation Name Status Comments Brother Alive Father Alive Maternal Grandfather (Age 62) ca ncer Maternal Grandmother (Age 52) br east ca Maternal Uncle Mother (Age 28) breast ca. Other 1 Great GrandMother Other 2 Great Aunt's (Jessica) Other 3 Great Aunt's Orrum Paternal Aunt Alive Paternal Grandfather (Age 70) he art attack Paternal Grandmother Social History Tobacco Use Types Packs/Day Years Used Date Smoking Tobacco: Never Smokeless Tobacco: Never Tobacco Cessation:Counseling Given: Yes Comments:non smoker Alcohol Use Standard Drinks/Week Comments Not Currently 0 (1 standard drink = 0.6 oz pur e alcohol) Twice a year PHQ-2 Answer Date Recorded PHQ-2 TOTAL SCORE 0 05/05/2022 Social Connections Answer Date Recorded Frequency of Communication with Friends and Fami ly 0 05/04/2023 Financial Resource Strain Answer Date R ecorded Difficulty of Paying Living Expenses 3 05/04/2023 Difficulty of Paying Living Expenses Not on file 05/04/2023 Food Insecurity Answer Date Recorded Worried About Running Out of Food in the Last Ye ar 1 05/04/2023 Transportation Needs Answer Date Record ed Lack of Transportation (Medical) 1 05/04/2023 Housing Stability Answer Date Recorded Unable to Pay for Housing in the Last Year 1 05/04/2023 Sex and Gender Information Value Date Recorded Sex Assigned at Female 08/27/2021 9:49 AM HOME HEALTH NURSE Gender Identity Female 08/27/2021 9:49 AM HOME HEALTH NURSE Sexual Orientation Straight 08/27/2021 9: 49 AM HOME HEALTH NURSE Obstetrics History Para Term AB IAB SAB Ectopic Multiple Livin g Live Births 3 3 3 3 3 Date Outcome GA Total Labor Labor/2nd/3rd Weight Sex Type Anes PTL Sonal A1 A5 Name Clin 1999 Term 41w 4d 4.25 kg (9 lb 6 oz) M C-Sec tion Spinal Livin g 2000 Term 38w 4d 3.43 kg (7 lb 9 oz) F C-Sec tion Spinal Livin g 2009 Term 38w 0d F C-Sec tion Spinal Livin g Dr. Peterson ie Delivery Location:[place] Last Filed Vital Signs Vital Sign Reading Time Taken Comments Blood Pressure 121/85 03/01/2024 9:20 AM CDT Pulse 66 03/01/2024 9:20 AM CDT Temperature 36.1 ??C (97 ??F) 12/21/2023 1:39 PM CDT Respiratory Rate 16 01/19/2023 12:14 PM CDT Oxygen Saturation 97% 03/01/2024 9:20 AM CDT Inhaled Oxygen Concentration - - Weight 80.9 kg (178 lb 4.8 oz) 03/01/2024 9:20 A M CDT Height 165.7 cm (5' 5.24) 01/19/2023 12:14 PM C DT Body Mass Index 29.46 01/19/2023 12:14 PM CDT Plan of Treatment Upcoming Encounters Date Type Department Care Team (Late st Contact Info) Description 03/21/2024 7:30 AM CDT Appointment [facility] [address] [place] [address] 03/23/2024 10:15 AM CDT Ancillary Procedure [facility] [address] [place] [address] 04/12/2024 11:40 AM CDT Office Visit [facility] Neuroscience Lillie at [facility] [address] [place] [address] Ollie Dorantes MD [address] [place] [address] Health Maintenance Due Date Last Done Comments Hepatitis C screening for age 18-79 1988 Lipids for age 45-75 07/25/2018 07/25/2013, 12/23/19 07 Zoster (shingles) series for age 50+ (1 of 2) 2020 COVID-19 vaccine series ( season) 2023 12/27/2020, 12/06/2020 Depression screening for age 12+ 05/05/2023 05/05/2022, 11/04/2021, 09/16/2021, Additional history exists Pap test for age 21-65 07/05/2023 8, 07/05/2018, 12/29/2012, Additional history exists BMI (ht and wt on same day) for age 18+ 01/20/2024 01/19/2023, 11/06/2022, 08/29/2021, Additional history exists Influenza for age 50-64 04/16/2024 06/09/20 18, 09/21/2017, 06/24/2016, Additional history exists Mammogram for age 45-75 07/30/2024 07/30/20 23, 07/29/2022, 07/30/2021, Additional history exists Tetanus booster 09/27/2027 09/27/2017, 11/0 01/2007, 12/13/1997 Colonoscopy through age 75 02/01/203302/01, 02/01/2023, 12/13/2017, Additional history exists Tdap Completed 06/21/2007 HIV for age 15-65 Completed 08/28/2009 Pneumococcal series for age 6-64 Aged Out No longer eligible based on patient's age to complete this topic Procedures Procedure Name Priority Date/Time Associated Diagnosis Comments ANTINUCLEAR ANTIBODY BY IFA Routine 03/01/2024 10:13 AM CDT Left sided lacunar infarction (HC) RA QUANTITATIVE Routine 03/01/2024 10:13 AM CDT Left sided lacunar infarction (HC) CYCLIC CITRULLINE PEPTIDE Routine 03/01/2024 10:13 AM CDT Left sided lacunar infarction (HC) CYCLIC CITRULLINE PEPTIDE Routine 03/01/2024 10:13 AM CDT Left sided lacunar infarction (HC) LYME SCREEN W/NO REFLEX Routine 03/01/2024 10:13 AM CDT Left sided lacunar infarction (HC) APTT Routine 03/01/2024 10:13 AM CDT Left sided lacunar infarction (HC) PROTIME-INR Routine 03/01/2024 10:13 AM CDT Left sided lacunar infarction (HC) URINE CULTURE Add On 12/21/2023 1:42 PM CDT Frequency of urination URINALYSIS MICROSCOPIC Routine 12/21/2023 1:42 PM CDT Frequency of urination UA W/ SEDIMENT EXAM REFLEXED PER CRITERIA Routine 12/21/2023 1:42 PM CDT Frequency of urination XR MAMMO JULIEN BILAT SCREEN Routine 07/30/2023 2:06 PM HOME HEALTH NURSE Encounter for screening mammogram for malignant neoplasm of breast COLONOSCOPY SCREENING Routine 02/01/2023 12:00 AM CDT Encounter for screening colonoscopy COLOR DIPPER THIN PREP PAP SCREEN IMAGED Routine 07/05/2018 1:40 PM HOME HEALTH NURSE Screening for malignant neoplasm of cervix LIPID PANEL W REFLEX MEASURED LDL Routine 07/25/2013 11:30 AM HOME HEALTH NURSE Screening for lipoid disorders ANTI HIV 1/2 Routine 08/28/2009 4:03 PM HOME HEALTH NURSE Supervision of High-Risk of Elderly Multigravida from Last 3 Months or Most Recently Relevant to Health Maintenance Results * ANTINUCLEAR ANTIBODY BY IFA (03/01/2024 10:13 AM CDT) ANTINUCLEAR ANTIBODY (PANFILO) Negative Negative 03/02/2024 1:39 PM CDT [facility] Blood BLOOD SPECIMEN / Unknown Venipuncture / Unknown 03/01/2024 10:13 AM CDT 03/01/2024 10:15 AM CDT Narrative [facility] - 03/02/2024 1:39 PM CDT Method: PANFILO screen performed by (IFA) on HEP-2 substrate, IgG Ollie Dorantes MD CHEMISTRY [facility] [address] [place] [address], * CYCLIC CITRULLINE PEPTIDE (03/01/2024 10:13 AM CDT) CCP Antibody,IgG/I gA <4.6 <=19.9 CU 03/02/2024 11:44 AM CDT [facility] Blood BLOOD SPECIMEN / Unknown Venipuncture / Unknown 03/01/2024 10:13 AM CDT 03/01/2024 10:15 AM CDT Narrative [facility] - 03/02/2024 11:44 AM CDT Negative <20 Positive >=20 The following results were obtained with the [employer] QUANTA Flash CCP3 chemiluminescent immunoassay. Values obtained with different manufacturers' assay methods may not be used interchangeably. Ollie Dorantes MD SEND OUTS Performing Organization Address [facility] de Phone Number [facility] [address] [place] [address], * LYME SCREEN W/NO REFLEX (03/01/2024 10:13 AM CDT) Pathologist [facility] LYME SCREEN NO REFLEX Negative Negative, Equivocal 03/02/2024 8:59 AM CDT [facility] N[facility] Comment:No detectable antibo dy; result does not exclude B. burgdorferi infection. An additional sample should be tested within 4-6 weeks if early infection is suspected. Blood BLOOD SPECIMEN / Unknown Venipuncture / Unknown 03/01/2024 10:13 AM CDT 03/01/2024 10:15 AM CDT Ollie Dorantes MD SEND OUTS Performing Organization Address [facility] de Phone Number [facility] [address] [place] [address], * RA QUANTITATIVE (03/01/2024 10:13 AM CDT) [facility] RHEUMATOID FACTOR,QUANT <10.00 <14.00 IU/mL 03/01/2024 6:22 PM CDT [facility] TRAL [facility] Blood BLOOD SPECIMEN / Unknown Venipuncture / Unknown 03/01/2024 10:13 AM CDT 03/01/2024 10:15 AM CDT Ollie Dorantes MD SEND OUTS Performing Organization Address [facility] de Phone Number [facility] [address] [place] [address], * APTT (03/01/2024 10:13 AM CDT) [facility] APTT 30 28 - 36 sec 03/01/2024 4:57 PM CDT [facility] Blood BLOOD SPECIMEN / Unknown Venipuncture / Unknown 03/01/2024 10:13 AM CDT 03/01/2024 10:15 AM CDT Narrative [facility] - 03/01/2024 4:57 PM CDT Therapeutic Range: 57-87 seconds Ollie Dorantes MD HEMATOLOGY Performing Organization Address City/[facility]/ZIP Co de Phone Number [facility] [address] [place], [place] [id number], * PROTIME-INR (03/01/2024 10:13 AM CDT) INR 1.0 <1.3 03/01/2024 4:57 PM CDT [facility] PROTIME 10.9 10.3 - 12.3 sec 03/01/2024 4:57 PM CDT [facility] Blood BLOOD SPECIMEN / Unknown Venipuncture / Unknown 03/01/2024 10:13 AM CDT 03/01/2024 10:[address] [facility] LABORATORY - 03/01/2024 4:57 PM CDT ?Therapeutic Range 2.0-3.0 for most anticoagulated patients 2.5-3.5 or 4.0 for high risk patients The INR is only used for patients on stable oral anticoagulant therapy. It makes no significant contribution to the diagnosis or treatment of patients whose Protime is prolonged for other reasons. INR results are increased when heparin levels exceed 1.0 U/mL, which corresponds to an aPTT >125 seconds if the patient is on UFH. Ollie Dorantes MD HEMATOLOGY Performing Organization Address City/[facility]/ZIP Co de Phone Number [facility] [address] [place] [address], * (ABNORMAL) URINALYSIS MICROSCOPIC (12/21/2023 1:42 PM CDT) RBC 3-5(A) 0-2, None Seen /HPF 12/21/2023 1:52 PM CDT [facility] WBC 11-25(A) 0-2, 3-5, None Seen /HPF 12/21/2023 1:52 PM CDT [facility] BACTERIA Few None Seen, Rare, Few Bacteria/H PF 12/21/2023 1:52 PM CDT [facility] EPITHELIAL CELLS Few None Seen, Few Epi/HPF 12/21/2023 1:52 PM CDT [facility] Urine URINE SPECIMEN / Unknown Non-Blood / Unknown 12/21/2023 1:42 PM CDT 12/21/2023 1:46 PM CDT Leonarda Slater MD URINE [facility] [address] [place] [address], * (ABNORMAL) URINE CULTURE (12/21/2023 1:42 PM CDT) CULTURE RESULT(A) 12/24/2023 7:00 AM CDT [facility] CULTURE 50,000-100,000 CFU/mL Escherichia coli 12/24/2023 7:00 AM CDT [facility] TRAL [facility] Urine URINE SPECIMEN / Unknown Non-Blood / Unknown 12/21/2023 1:42 PM CDT 12/21/2023 1:46 PM CDT Narrative Organism Antibiotic Method Susceptibility Escherichia coli TRIMETHOPRIM/SULF <=1/19: S Escherichia coli AMPICILLIN 8: S Escherichia coli CEFAZOLIN-UC <=4: S Comment:Cefazolin-UC interpretations are for therapy of uncomplicated UTIs due to E.coli, K.pneumoniae, or P.mirablis. Cefazolin breakpoint is used as a surrogate to predict results for the oral agents - cefdinir, cefuroxime, and cephalexin, when used for therapy of uncomplicated UTIs due to E coli, K, pneumoniae, and P. mirabilis. The FDA recommends cefadroxil susceptibility can be deduced from cefazolin. Escherichia coli GENTAMICIN <=1: S Escherichia coli CEFTRIAXONE <=1: S Escherichia coli CEFTAZIDIME <=1: S Escherichia coli LEVOFLOXACIN <=0.12: S Escherichia coli CIPROFLOXACIN <=0.25: S Escherichia coli PIPERACILLIN/TAZO <=4: S Escherichia coli AMPICILLIN/SULBACTAM 4: S Escherichia coli CEFEPIME <=1: S Escherichia coli TOBRAMYCIN <=1: S Escherichia coli MEROPENEM <=0.25: S Escherichia coli NITROFURANTOIN <=16: S Leonarda Slater MD MICROBIOLOGY [facility] [address] [place] [id number], [place] * (ABNORMAL) UA W/ SEDIMENT EXAM REFLEXED PER CRITERIA (12/21/2023 1:42 PM CDT) COLOR Red(A) Yellow Color 12/21/2023 1:51 PM CDT [facility] CLARITY Slightly Cloudy(A) Clear Clarity 12/21/2023 1:51 PM CDT [facility] SPECIFIC GRAVITY,URINE Unable to interpret due to interfering substance(A) 1.010, 1.015, 1.020, 1.025 12/21/2023 1:51 PM CDT [facility] PH,URINE Unable to interpret due to interfering substance(A) 6.0, 7.0, 8.0, 5.5, 6.5, 7.5, 8.5 12/21/2023 1:51 PM CDT [facility] UROBILINOGEN, QUALITATIVE Unable to interpret due to interfering substance(A) Normal EU/dl 12/21/2023 1:51 PM CDT [facility] PROTEIN, URINE Unable to interpret due to interfering substance(A) Negative mg/dL 12/21/2023 1:51 PM CDT [facility] GLUCOSE, URINE Unable to interpret due to interfering substance(A) Negative mg/dL 12/21/2023 1:51 PM CDT [facility] KETONES,URINE Unable to interpret due to interfering substance(A) Negative mg/dL 12/21/2023 1:51 PM CDT [facility] BILIRUBIN,URI NE Unable to interpret due to interfering substance(A) Negative 12/21/2023 1:51 PM CDT [facility] OCCULT BLOOD,URINE Unable to interpret due to interfering substance(A) Negative 12/21/2023 1:51 PM CDT [facility] NITRITE Unable to interpret due to interfering substance(A) Negative 12/21/2023 1:51 PM CDT [facility] LEUKOCYTE ESTERASE Unable to interpret due to interfering substance(A) Negative 12/21/2023 1:51 PM CDT [facility] Urine URINE SPECIMEN / Unknown Non-Blood / Unknown 12/21/2023 1:42 PM CDT 12/21/2023 1:46 PM CDT Leonarda Slater MD URINE [facility] [address] [place] [address], * XR MAMMO JULIEN BILAT SCREEN (07/30/2023 2:06 PM HOME HEALTH NURSE) Anatomical Region Laterality Modality BREASTS, Breast Left, Breast Right Bilateral Mammography Impressions 07/30/2023 3:39 PM HOME HEALTH NURSE ??There is no radiographic evidence for malignancy. ??Recommend annual mammograms. MAMMOGRAM ASSESSMENT: ??ACR 1 Negative PATIENTS: You will also receive a letter with your examination results in an easy to read format. ??If you have questions about your results, please contact your referring provider. Narrative 07/30/2023 3:39 PM HOME HEALTH NURSE For Patients: As a result of the Century Cures Act, medical imaging exams and procedure reports are released immediately into your electronic medical record. You may view this report before your referring provider. If you have questions, please contact your health care provider. XR MAMMO JULIEN BILAT SCREEN [[id number]] CLINICAL HISTORY: ??This is an asymptomatic 53 y.o. patient. INDICATION FOR EXAM: Mammogram Screening. TECHNIQUE: CC & MLO views were obtained. ??This study was evaluated with the assistance of Computer-Aided Detection. Breast Tomosynthesis was used in interpretation. COMPARISON FILM: Yes 07/29/22 [facility] 07/30/21 [facility] FINDINGS: ??The breasts are heterogeneously dense, which may obscure small masses. There are no dominant masses, suspicious micro calcifications or areas of architectural distortion. Shanelle Renee MD MAMMO * COLONOSCOPY SCREENING (02/01/2023 12:00 AM CDT) Shanelle Renee MD GI PROCEDURE ORD * COLOR DIPPER THIN PREP PAP SCREEN IMAGED (07/05/2018 1:40 PM HOME HEALTH NURSE) Case Report Gynecologic Cytology Report ? Case: [id number] ? Authorizing Provider: ??Lily Feliciano, ?? Collected: ? 07/05/2018 1340 ? MD ? [facility]: ?07/05/2018 1516 ? Clinic ? First Screen: ?Mike, Orestes ? Specimen: ?COLOR DIPPER ThinPrep Vial Screening, Cervical ? 07/17/2018 9:37 AM [facility] INTERPRETATION/ RESULT NEGATIVE FOR INTRAEPITHELIAL LESION OR MALIGNANCY (NIL) (none) 07/17/2018 9:37 AM [facility] [employer] [facility] ENTRAK LABORATORY IMEN ADEQUACY Satisfactory for evaluation Endocervical component present 07/17/2018 9:37 AM [facility] [employer] [facility] HPV REQUEST HPV and PAP 07/17/2018 9:37 AM [facility] [employer] [facility] Date of LMP 06/28/2018 07/17/2018 9:37 AM [facility] [employer] [facility] Last Pap Date 5-16-13 07/17/2018 9:37 AM [facility]-C ENTRAL LABORATORY Last Pap Result NIL 8 9:37 AM [facility] [employer] [facility] Abnormal Pap or [place] Bx in last 5 years No 07/17/2018 9:37 AM [facility] [employer] LABORATORYC ENTRAL LABORATORY Menstrual Status Regular Periods 07/17/2018 9:37 AM [facility] [place] Bx Done Today No 07/17/2018 9:37 AM [facility] [employer] [facility] Additional Information None given 07/17/2018 9:37 AM [facility] ENTRAL LABORATORY Automated Review Successful 07/17/2018 9:37 AM [facility] ENTRAL LABORATORY Comment:Specimen processed s uccessfully by automated buffing machine operator semiautomatic device, ThinPrep Imaging System, [employer] ANCILLARY TESTING COLOR DIPPER HPV Ordered, Please see separate report 07/17/2018 9:37 AM [facility] ENTRAL LABORATORY Note The pap test is a screening technique, not a diagnostic procedure. ??It is used primarily to screen for squamous cancers and precursor lesions. ??Published studies have shown that it is subject to both false negative and false positive results. ??The pap test should not be used as the sole means to diagnose or exclude pre-malignant and malignant lesions. Cytology is screened and interpreted at [facility], [facility] Laboratory - [address], [place] [address] and [facility] - [address]; [place] [address] and [facility] - [address]; [place] [address] and [facility] [address]; [place] [address] 07/17/2018 9:37 AM HOME HEALTH NURSE [facility]-C ENTRAL LABORATORY Other (Cervical) Non-Blood / Unknown 07/05/2018 1:40 PM HOME HEALTH NURSE 07/05/2018 3:16 PM HOME HEALTH NURSE Lily Feliciano MD PATHOLOGY/CYTO LOGY [facility]-CENTRAL LABORATORY [address] [place] [address], * LIPID PANEL W REFLEX MEASURED LDL (07/25/2013 11:30 AM HOME HEALTH NURSE) CHOLESTEROL,TOTAL 168 110 - 199 mg/dL [facility] TRIGLYCERIDES 82 40 - 149 mg/dL [facility] HDL CHOLESTEROL 48 >40 mg/dL [facility] CHOL/HDL RATIO 3.50 <4.51 [facility] NON-HDL CHOLESTEROL 120 Undefined mg/dL [facility] LDL CHOLESTEROL 104 <131 mg/dL [facility] PATIENT STATUS Fasting [facility] Blood specimen (specimen) BLOOD SPECIMEN / Unknown 07/25/2013 11:30 AM HOME HEALTH NURSE 07/25/2013 11:25 AM HOME HEALTH NURSE Lily Feliciano MD CHEMISTRY [facility] [address] [place] [address] * ANTI HIV 1/2 [76174.0] (08/28/2009 4:03 PM HOME HEALTH NURSE) ANTI HIV 1/2 Non-reacti ve [facility] Blood specimen (specimen) BLOOD SPECIMEN / Unknown 08/28/2009 4:03 PM HOME HEALTH NURSE 08/28/2009 3:54 PM HOME HEALTH NURSE Lily Feliciano MD SEND OUTS [facility] LAB[facility] [place]NAL ZIP [address] [place] [phone] from Last 3 Months or Most Recently Relevant to Health Maintenance Care Teams [place] Supervisor Open Pit Relationship Specialty Start Date End Date Shanelle Renee MD [address] [place] [address] PCP - General Family Practice 01/25/18
--- OUTSIDE RECORDS SUMMARY | 2024-03-16 22:22 | XMS_ITS | Referral Summary ---
Author Organization [place] Address [address] [place] [address] Care Team Providers Care Inspector Health Care Facilities Name Role Phone Shanelle Renee Primary Care Provider [phone] Allergies Active Allergy Reactions Criticality Noted Date [...] 11/02/2022 5:15 PM CDT Plan of Treatment Not on file Procedures Procedure Name Priority Date/Time Associated Diagnosis Comments BASIC METABOLIC PANEL STAT 11/02/2022 5:13 PM CDT from Last 3 Months or Most Recently Relevant to Health Maintenance Results * (ABNORMAL) Basic metabolic panel (11/02/2022 5:13 PM CDT) [facility] Signature Sodium 139 136 - 145 mmol/L 11/02/2022 [...] 5:36 PM CDT LABORATORY Comment:eGFR calculated usin 2020 CKD-EPI equation. Blood BLOOD SPECIMEN / Unknown Venipuncture / Unknown 11/02/2022 5:13 PM CDT 11/02/2022 5:16 PM CDT Scooby Spring MD LAB - BLOOD ORDERABL ES LABORATORY [facility] [address] 1st floor, [address] [place] [address], [facility] [phone] from Last 3 Months or Most Recently Relevant to Health Maintenance Care Teams Inspector Health Care Facilities Relationship Specialty Start Date End Date Shanelle Renee [address] [place] [address] PCP - General Family Medicine 11/02/22
== END 2024-03-16 22:26 | disposition home or self-care (01) ==
LOC: ED 22:20
PROVIDERS: Emergency Provider Family Medicine; PCP Family Medicine
DX: H60.8X1 Other otitis externa, right ear (principal)
CPT/HCPCS: 99281; 99283

== ENCOUNTER 2024-07-21 13:27 | Emergency (ER) | payer BC, SELFPAY ==
[2024-07-21 13:53] VITALS: BP 132/89; PULSE 82; RESP 16; TEMP 36.9; O2SAT 95; BMI 30.3
--- OUTSIDE RECORDS SUMMARY | 2024-07-21 15:01 | XMS_ITS | Referral Summary ---
Author Organization [place] Address [address] [place] [address] Care Team Providers Care Ball Points Inspector Name Role Phone Shanelle Renee Primary Care Provider [phone] Allergies Active Allergy Reactions Criticality Noted Date Comments Amoxicillin-Pot Clavulanate Hives,Rash Low 08/24/19 07 Morphine Itching 04/04/2013 Red Dye #22 (Eosine) Nausea and Vomiting 2006 Red Dye #40 (Allura Red) Nausea Low 10/02/2020 Medications ibuprofen (ADVIL/MOTRIN) 200 MG tablet Take 200 [...] School Help Needed Not on file 05/08 Comments Unknown Sex and Gender Information Value Date Recorded Sex Assigned at Not on file Legal Sex Female 4:28 PM CDT Gender Identity Not on file Sexual Orientation Not on file Last Filed Vital Signs Vital Sign Reading Time Taken Comments Blood Pressure 109/73 11/02/2022 7:40 PM CDT Pulse 72 11/02/2022 5:38 PM CDT Temperature 36.5 C (97.7 F) 11/02/2022 5:15 PM CDT Respiratory Rate 16 11/02/2022 7:40 PM CDT [...] Basic metabolic panel (11/02/2022 5:13 PM CDT) [facility] Sodium 139 136 - 145 mmol/L 11/02/2022 [...] 11/02/2022 5:36 PM CDT LABORATORY Comment:eGFR calculated us2020 CKD-EPI equation. Blood BLOOD SPECIMEN / Unknown Venipuncture / Unknown 11/02/2022 5:13 PM CDT 11/02/2022 5:16 PM CDT Scooby Spring MD LAB - BLOOD ORDERABLES Final Re sult LABORATORY [facility] [address] 1[address], [address] [place] [address], [facility] [phone] from Last 3 Months or Most Recently Relevant to Health Maintenance Care Teams Ball Points Inspector Relationship Specialty Start Date End Date WillolykathrynShanelle [address] [place] [address] PCP - General Family Medicine 11/02/22
--- OUTSIDE RECORDS SUMMARY | 2024-07-21 15:01 | XMS_ITS | Clinical Summary ---
Author Organization [place] Address [address] [place] [address] Care Team Providers Care Extracorporeal Circulation Specialist Name Role Phone Shanelle Renee Primary Care Provider [phone] Allergies Active Allergy Reactions Criticality Noted Date [...] 2010 ZOSTER IMMUNIZATION (1 of 2) 2020 PHQ-2 (once per calendar year) 2023 COVID-19 Vaccine (3 - season) 2024 12/27/2020, 12/06/2020 INFLUENZA VACCINE (#1) 2024 8, 09/21/2017, 06/24/2016, Additional history exists MAMMO SCREENING 07/29/2024 07/29/2022 GLUCOSE 11/02/2025 11/02/2022 DTAP/TDAP/TD IMMUNIZATION (3 - Td or Tdap) 09/27/2027 09/27/2017, 06/21/2007, 12/13/1997 RSV VACCINE (1 - 1-dose 75+ series) 2045 HEPATITIS B IMMUNIZATION Completed 012, 11/03/2002, 12/13/1997 [...] 5:13 PM CDT 11/02/2022 5:16 PM CDT us Scooby Spring MD LAB - BLOOD ORDERABLES Final Re sult LABORATORY [facility] [address] 1[address] floor, [address] [place] [address], [place] [phone] from Last 3 Months or Most Recently Relevant to Health Maintenance Care Teams Extracorporeal Circulation Specialist Relationship Specialty Start Date End Date Shanelle Renee [address] [facility] [address] PCP - General Family Medicine 11/02/22
--- OUTSIDE RECORDS SUMMARY | 2024-07-21 15:02 | XMS_ITS | Clinical Summary ---
Author Organization [facility] Address [place], [place] [address] Care Team Providers Care Cashier Clerk Name Role Phone Shanelle Renee MD Primary [...] 1 capsule by mouth once daily. 0 8 Active melatonin 1 mg Take 1 tablet by mouth at bedtime. 0 8 Active albuterol HFA (PRO-AIR; VENTOLIN; PROVENTIL) 90 mcg/actuation inhalerIndications:B ronchitis Inhale 2 Puffs by mouth 4 times daily if needed for Wheezing 1st choice. 1 Each 3 2 Active aspirin (ECOTRIN) 81 mg enteric coated tablet Take 81 mg by mouth once daily. Active LORazepam 1 mg tabletIndications:Fe ar of flying Take 1 mg tablet orally 1 hour prior to flight. May repeat 1 dose if needed in 4-6 hours. 10 Tablet 4 Active citalopram (CELEXA) 10 mg tabletIndications:An xiety state Take 1 Tablet (10 mg) by mouth at bedtime. 90 Tablet 3 4 Active apixaban (Eliquis) 5 mg tabletIndications:pr evention of venous thromboembolism recurrence Take 1 Tablet (5 mg) by mouth two times daily. 60 Tablet 4 Active LORazepam (ATIVAN) 1 mg tabletIndications:Fe ar of flying Take 1 mg tablet orally 1 hour prior to flight. May repeat 1 dose if needed in 4-6 hours. 10 Tablet 3 06/28/20 24 Discontinued(Reo rder (E-cancel not sent)) citalopram (CELEXA) 10 mg tabletIndications:An xiety state TAKE 1 TABLET(10 MG) BY MOUTH EVERY MORNING 90 Tablet 4 06/26/20 24 Discontinued citalopram (CELEXA) 10 mg tabletIndications:An xiety state TAKE 1 TABLET(10 MG) BY MOUTH EVERY MORNING 90 Tablet 4 07/04/20 24 Discontinued(Reo rder (E-cancel not sent)) Active Problems Problem Noted Date Diagnosed Date Mild intermittent reactive a irway disease without complication 01/10/2024 FELIPA (generalized anxiety disorder) 01/09/2015 Migraines 11/25/2011 Allergic rhinitis, cause unspecified 05/16/2007 Hypoglycemia, unspecified 05/16/2007 Resolved Problems Problem Noted Date Diagnosed Date Resolved Date Supervision of high-risk pre gnancy of elderly multigravida 08/28/2009 07/18/2014 Encounters Date Type Department Care Team Description 07/21/2024 Nurse Triage [facility] [address] [facility] [place] [address] Shanelle Renee MD Bleeding (Severe ) 07/20/[address] [facility] [address] [facility] [address] [place] [address] Miguel Bhagat MD Surgery Scheduled (PFO Closure scheduling. ) 07/19/2024 12:00 PM BLADE GROOVER Office Visit [facility] [address] [place] [address] Deann Zhang DO Physical 07/19/2024 Travel 07/04/2024 8:25 AM BLADE GROOVER Office Visit [facility] [address] [facility] [place] [address] Shanelle Renee MD Blood Pressure (Has been getting increasingly higher./Blood thinner in addition to 81 mg ASA/heart surgery-PFO closure/) 07/04/2024 Travel 06/27/2024 4:30 PM BLADE GROOVER Office Visit [facility] [address] [facility] [address] [place] [address] Miguel Bhagat MD Follow Up (INPERSON:VALVE NEW:PFO, LAURA DONE IN MARCH, HJK REFERRAL BRILAMASHA/PT states feeling fine. /no cardiac symptoms today /nothing to note) 06/27/2024 Travel 06/22/2024 Refill [facility] [address] [place] [address] Shanelle Renee MD Refill Request (Citalopram) 06/05/2024 11:30 AM CDT Office Visit [address] [place] [address] Olimpia Hill MD CV General Cardiology New (Initial visit, ref by Jayna for CVA, PFO, echo done 03/21, reports feeling fatigued and has an eye problem, no other concerns noted, no sxs noted. ) 06/05/2024 Travel 05/02/2024 3:00 PM CDT Office Visit [facility] [place] [facility] [address] [place] [address] Ollie Dorantes MD Follow Up (Follow up LAURA 03/21/24 and MRI 03/23/24) 05/02/2024 Travel from Last 3 Months Immunizations Name Administration Dates Next Due COVID-19 vaccine (Vividolabs NTDiBcom 30mcg/0.3mL) [facility] [place] 12/27/2020,12/06/2020 Hepatitis A (Adult) 07/18/2014 Hepatitis B (Adult) 11/25/2011,11/03/2002,1997 Imovax 04/19/2021,,04/05/2021, 021 Influenza, IIV3 (Age >=3 years) 05/23/2013,04/30,09/19/2010 Influenza, IIV4 06/09/2018, 8,06/24/2016, 015 MMR 03/06/2010 [...] Great Aunt's (Jessica) Other 3 Great Aunt's [place] Paternal Aunt Alive Paternal Grandfather (Age 70) he art attack Paternal Grandmother Social History Tobacco Use Types Packs/Day Years Used Date Smoking Tobacco: Never Smokeless Tobacco: Never Tobacco Cessation:Counseling Given: Yes Comments:non smoker Alcohol Use Standard Drinks/Week Comments Not Currently 0 (1 standard drink = 0.6 oz pur e alcohol) Twice a year PHQ-2 Answer Date Recorded PHQ-2 TOTAL SCORE 0 07/19/2024 Social Connections Answer Date Recorded Do you often feel lonely or isolated from those around you? 0 07/04/2024 Financial Resource Strain Answer Date R ecorded Difficulty of Paying Living Expenses 3 07/04/2024 Difficulty of Paying Living Expenses Not on file 07/04/2024 Food Insecurity Answer Date Recorded Do you worry your food will run out before you are able to buy more? 1 07/04/2024 Transportation Needs Answer Date Record ed Does lack of transportation keep you from medica l appointments? 1 07/04/2024 Does lack of transportation keep you from work, meetings or getting things that you need? 1 07/04/2024 Housing Stability Answer Date Recorded What is your housing situation today? 1 07/04/2024 Sex and Gender Information Value Date Recorded Sex Assigned at Female 08/27/2021 9:49 AM BLADE GROOVER Gender Identity Female 08/27/2021 9:49 AM BLADE GROOVER Sexual Orientation Straight 08/27/2021 9: 49 AM BLADE GROOVER Travel History Travel Start Travel End [place] 07/08/2024 07/14/2024 Obstetrics History Para Term AB IAB SAB [...] Spinal Livin g Dr. Peterson ie Delivery Location:[facility] Filed Vital Signs Vital Sign Reading Time Taken Comments Blood Pressure 118/82 07/19/2024 12:03 PM BLADE GROOVER Pulse 72 07/19/2024 12:03 PM BLADE GROOVER Temperature 36.1 C (97 F) 12/21/2023 1:39 PM CDT Respiratory Rate 16 03/21/2024 9:10 AM CDT Oxygen Saturation 98% 07/19/2024 12:03 PM BLADE GROOVER Inhaled Oxygen Concentration - - Weight 83.5 kg (184 lb) 07/19/2024 12:03 PM BLADE GROOVER Height 165.1 cm (5' 5) 07/19/2024 12:03 PM BLADE GROOVER Body Mass Index 30.62 07/19/2024 12:03 PM BLADE GROOVER Plan of Treatment Upcoming Encounters Date Type Department Care Team (Late st Contact Info) Description 08/02/2024 11:20 AM BLADE GROOVER Ancillary Procedure [facility] [address] [place] [address] 08/17/2024 1:00 PM BLADE GROOVER Orders Only [facility] [address] [place] [address] 08/17/2024 1:30 PM BLADE GROOVER Office Visit [facility] [address] [place] [address] 08/18/2024 8:00 AM BLADE GROOVER Appointment [facility] [address] [place] [address] Miguel Bhagat MD [address] [facility] [address] [place] [address] 08/29/2024 1:30 PM BLADE GROOVER Telemedicine [facility] [place] [facility] [address] [place] [address] Neida Nelson MS, [facility] [address] [place] [address] Health Maintenance Due Date Last Done Comments Hepatitis C screening for age 18-79 1988 Zoster (shingles) series for age 50+ (1 of 2) 2020 Pap test for age 21-65 07/05/2023 8, 07/05/2018, 12/29/2012, Additional history exists COVID-19 vaccine series ( season) 2024 12/27/2020, 12/06/2020 Influenza for age 50-64 04/16/2024 06/09/20 18, 09/21/2017, 06/24/2016, Additional history exists Mammogram for age 45-75 07/30/2024 07/30/20 23, 07/29/2022, 07/30/2021, Additional history exists BMI (ht and wt on same day) for age 18+ 07/19/2025 07/19/2024, 06/27/2024, 06/05/2024, Additional history exists Depression screening for age 12+ 07/28/2025 07/28/2024, 07/21/2024, 07/20/2024, Additional history exists Tetanus booster 09/27/2027 09/27/2017, 11/01/2007, 12/13/1997 Lipids for age 45-75 07/19/2029 07/19/2024, 07/25/2013, 12/22/2006 Colonoscopy through age 75 02/01/203302/01, 02/01/2023, 12/13/2017, Additional history exists Tdap Completed 06/21/2007 HIV for age 15-65 Completed 08/28/2009 Pneumococcal series for age 6-64 Aged Out No longer eligible based on patient's age to complete this topic Procedures Procedure Name Priority Date/Time Associated Diagnosis Comments LIPID PANEL W REFLEX MEASURED LDL Routine 07/19/2024 12:39 PM BLADE GROOVER Screening, lipid HEMOGLOBIN A1C Routine 07/19/2024 12:38 PM BLADE GROOVER Screening for diabetes mellitus EKG 12 LEAD Routine 06/05/2024 11:31 AM CDT 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 (HC) XR MAMMO JULIEN BILAT SCREEN Routine 07/30/2023 2:06 PM BLADE GROOVER Encounter for screening mammogram for malignant neoplasm of breast COLONOSCOPY SCREENING Routine 02/01/2023 12:00 AM CDT Encounter for screening colonoscopy MARKET RISK MANAGER THIN PREP PAP SCREEN IMAGED Routine 07/05/2018 1:40 PM BLADE GROOVER Screening for malignant neoplasm of cervix ANTI HIV 1/2 Routine 08/28/2009 4:03 PM BLADE GROOVER Supervision of High-Risk of Elderly Multigravida from Last 3 Months or Most Recently Relevant to Health Maintenance Results * (ABNORMAL) LIPID PANEL W REFLEX MEASURED LDL (07/19/2024 12:39 PM BLADE GROOVER) CHOLESTEROL, TOTAL 194 <200 mg/dL [facility] HDL CHOLESTEROL 46(L) > OR = 50 mg/dL [facility] TRIGLYCERIDES 203(H) <150 mg/dL [facility] Comment: If a non-fasting specimen was collected, consider repeat triglyceride testing on a fasting specimen if clinically indicated. Jayshree et al. J. of Clin. Lipidol. 2015;9:129-169. LDL-CHOLESTEROL 116(H) mg/dL (calc) [facility] Comment: Reference range: <100 Desirable range <100 mg/dL for primary prevention; <70 mg/dL for patients with CHD or diabetic patients with > or = 2 CHD risk factors. LDL-C is now calculated using the Emery calculation, which is a validated novel method providing better accuracy than the Friedewald equation in the estimation of LDL-C. Luigi SS et al. CAMELIA. 2013;310(85): 1974-5312 (http://education.[employer]/faq/JOT696) CHOL/HDLC RATIO 4.2 <5.0 (calc) [facility] NON HDL CHOLESTEROL 148(H) <130 mg/dL (calc) [facility] Comment: For patients with diabetes plus 1 major ASCVD risk factor, treating to a non-HDL-C goal of <100 mg/dL (LDL-C of <70 mg/dL) is considered a therapeutic option. Blood BLOOD SPECIMEN / Unknown 07/19/2024 12:39 PM BLADE GROOVER 07/19/2024 12:40 PM BLADE GROOVER Narrative [facility] - 07/20/2024 3:33 AM BLADE GROOVER FASTING:YES FASTING: YES Deann Zhang DO CHEMISTRY [facility] [address] [place] [address], [facility] [address] [place] [address] * HEMOGLOBIN A1C (07/19/2024 12:38 PM BLADE GROOVER) HEMOGLOBIN A1C 5.5 <5.7 % of total Hgb [facility] Comment: For the purpose of screening for the presence of diabetes: <5.7% Consistent with the absence of diabetes 5.7-6.4% Consistent with increased risk for diabetes (prediabetes) > or =6.5% Consistent with diabetes This assay result is consistent with a decreased risk of diabetes. Currently, no consensus exists regarding use of hemoglobin A1c for diagnosis of diabetes in children. According to [place] Diabetes Association (ADA) guidelines, hemoglobin A1c <7.0% represents optimal control in non- diabetic patients. Different metrics may apply to specific patient populations. Standards of Medical Care in Diabetes(ADA). Blood BLOOD SPECIMEN / Unknown 07/19/2024 12:38 PM BLADE GROOVER 07/19/2024 12:38 PM BLADE GROOVER Deann Zhang DO CHEMISTRY [facility] [address] [place] [address], [facility] [address] [place] [address] * EKG 12 LEAD (06/05/2024 11:31 AM CDT) Interpretation Normal sinus rhythm Normal ECG No previous ECGs available Ventricular Rate 67 BPM Atrial Rate 67 BPM P-R Interval 158 ms QRS Duration 92 ms QT 384 ms QTc 405 ms P [place] 74 degrees R [place] 21 degrees T [place] 74 degrees 06/05/2024 11:3 1 AM CDT 06/06/2024 9:14 AM CDT Olimpia Hill MD EKG ORD * XR MAMMO JULIEN BILAT SCREEN (07/30/2023 2:06 PM BLADE GROOVER) Anatomical Region Laterality Modality BREASTS, Breast Left, Breast Right Bilateral Mammography Impressions 07/30/2023 3:39 PM BLADE GROOVER There is no radiographic evidence for malignancy. Recommend annual mammograms. MAMMOGRAM ASSESSMENT: ACR 1 Negative PATIENTS: You will also receive a letter with your examination results in an easy to read format. If you have questions about your results, please contact your referring provider. Narrative 07/30/2023 3:39 PM BLADE GROOVER For Patients: As a result of the Cures Act, medical imaging exams and procedure reports are released immediately into your electronic medical record. You may view this report before your referring provider. If you have questions, please contact your health care provider. XR MAMMO JULIEN BILAT SCREEN [[id number]] CLINICAL HISTORY: This is an asymptomatic 53 y.o. patient. INDICATION FOR EXAM: Mammogram Screening. TECHNIQUE: CC & MLO views were obtained. This study was evaluated with the assistance of Computer-Aided Detection. Breast Tomosynthesis was used in interpretation. COMPARISON FILM: Yes 07/29/22 [facility] 07/30/21 [facility] FINDINGS: The breasts are heterogeneously dense, which may obscure small masses. There are no dominant masses, suspicious micro calcifications or areas of architectural distortion. Shanelle Renee MD MAMMO * COLONOSCOPY SCREENING (02/01/2023 12:00 AM CDT) Shanelle Renee MD GI PROCEDURE ORD * MARKET RISK MANAGER THIN PREP PAP SCREEN IMAGED (07/05/2018 1:40 PM BLADE GROOVER) Case Report Gynecologic Cytology Report Case: [id number] Authorizing Provider: Lily Feliciano, Collected: 07/05/2018 1340 Ordering Location: [facility] Received: 07/05/2018 1516 Clinic First Screen: Orestes Mckeon Specimen: MARKET RISK MANAGER ThinPrep Vial Screening, Cervical 07/17/2018 9:37 AM BLADE GROOVER [facility] INTERPRETATION/ RESULT NEGATIVE FOR INTRAEPITHELIAL LESION OR MALIGNANCY (NIL) (none) 07/17/2018 9:37 AM BLADE GROOVER [facility] IMEN ADEQUACY Satisfactory for evaluation Endocervical component present 07/17/2018 9:37 AM BLADE GROOVER [facility] HPV REQUEST HPV and PAP 07/17/2018 9:37 AM BLADE GROOVER [facility] Date of LMP 06/28/2018 07/17/2018 9:37 AM BLADE GROOVER [facility] Last Pap Date 5-16-13 07/17/2018 9:37 AM BLADE GROOVER [facility] Last Pap Result NIL 8 9:37 AM BLADE GROOVER [facility] Abnormal Pap or Hamilton Bx in last 5 years No 07/17/2018 9:37 AM [facility] Menstrual Status Regular Periods 07/17/2018 9:37 AM [facility] Hamilton Bx Done Today No 07/17/2018 9:37 AM [facility] Additional Information None given 07/17/2018 9:37 AM [facility] Automated Review Successful 07/17/2018 9:37 AM [facility] Comment:Specimen processed s uccessfully by automated acds block 1 operator device, ThinPrep Imaging System, [employer] ANCILLARY TESTING MARKET RISK MANAGER HPV Ordered, Please see separate report 07/17/2018 9:37 AM [facility] Note The pap test is a screening technique, not a diagnostic procedure. It is used primarily to screen for squamous cancers and precursor lesions. Published studies have shown that it is subject to both false negative and false positive results. The pap test should not be used as the sole means to diagnose or exclude pre-malignant and malignant lesions. Cytology is screened and interpreted at [facility] - [address], [place] [address] and [facility] - [address]; [place] [address] [facility] - [address]; [place] [address] and [facility] [address]; [place] [address] 07/17/2018 9:37 AM [facility] Other (Cervical) Non-Blood / Unknown 07/05/2018 1:40 PM BLADE GROOVER 07/05/2018 3:16 PM BLADE GROOVER Lily Feliciano MD PATHOLOGY/CYTO LOGY [facility] [address] [place] [address], [place] * ANTI HIV 1/2 [30576.0] (08/28/2009 4:03 PM BLADE GROOVER) ANTI HIV 1/2 Non-reacti ve [facility] Blood specimen (specimen) BLOOD SPECIMEN / Unknown 08/28/2009 4:03 PM BLADE GROOVER 08/28/2009 3:54 PM BLADE GROOVER Lily Feliciano MD SEND OUTS [facility] INTERNAL ZIP [address] [address] from Last 3 Months or Most Recently Relevant to Health Maintenance Advance Directives * Full Code (Latest Code Status on File) Date Activated Date Inactivated Comments 03/21/2024 8:18 AM 03/22/2024 2:08 AM Question Answer Comments Code Status Discussion: Reviewed Preferences Care Teams Cashier Clerk Relationship Specialty Start Date End Date Shanelle Renee MD [address] [place] [address] PCP - General Family Practice 01/25/18
== END 2024-07-21 15:00 | disposition left against medical advice (07) ==
LOC: ED 14:59
PROVIDERS: PCP Family Medicine
DX: Z53.21 Procedure and treatment not carried out due to patient leaving prior to being seen by health care provider (principal)

== ENCOUNTER 2024-08-01 16:27 | Emergency (ER) | payer BC, SELFPAY ==
[2024-08-01] VITALS (14 sets, daily range): BP systolic 119–135; BP diastolic 71–98; PULSE 60–96; RESP 18; TEMP 36.6; O2SAT 92–98; BMI 29.3
--- NOTE | 2024-08-01 17:01 | CRLHL7_ITS ---
For Patients: As a result of the Century Cures Act, medical imaging exams and procedure reports are released immediately into your electronic medical record. You may view this report before your referring provider. If you have questions, please contact your health care provider. INDICATION: Chest pain TECHNIQUE: Two view chest. FINDINGS: The lungs are clear. The heart, mediastinum and pulmonary vessels are of normal size. There is no evidence of pleural disease. IMPRESSION: Negative chest. Dictated by Alisha Mac MD @ 08/01/2024 6:37:26 PM (Electronically Signed)
[2024-08-01 17:32] LABS: Basophils Absolute Auto 0.04 K/uL (0.00-0.30); Basophils Percent Auto 0.5 % (0.0-3.0); Eosinophils Absolute Auto 0.19 K/uL (0.00-0.50); Eosinophils Percent Auto 2.6 % (0.0-7.0); Hemoglobin* 12.7 gm/dL (12.0-16.0); Immature Granulocytes Abs Auto 0.01 K/uL (0.00-0.30); Immature Granulocytes Pct Auto 0.1 %; Lymphocytes Absolute Auto 2.39 K/uL (0.90-2.90); Lymphocytes Percent Auto 32.3 % (20-44); Mean Corpuscular HGB Conc 33 gm/dL (32-36); Mean Corpuscular Hemoglobin 27 pg (26-34); Mean Corpuscular Volume 84 fL (80-100); Monocytes Percent Auto 8.4 % (0.0-11.0); Neutrophils Absolute Auto 4.14 K/uL (1.7-7.0); Neutrophils Percent Auto 56.1 % (42.0-72.0); Platelet Count* 255 K/uL (140-440); RDW Coefficient of Variation % 12.8 % (11.5-15.5); Red Blood Count 4.65 m/uL (4.00-5.20); White Blood Count* 7.39 K/uL (4.50-11.00)
[2024-08-01 17:34] LABS: Slide Review Reflex No
--- NOTE | 2024-08-01 17:34 | ED_ITS ---
HPI - Chest Pain General Date Seen: 08/01/24 Chief Complaint: Chest Pain Stated Complaint: chest pressure and pain x 4 hours Time Seen by Provider: 08/01/24 16:50 Source: patient Mode of arrival: ambulatory Limitations: no limitations History of Present Illness HPI narrative: Patient is a 54-year-old female presenting to the emergency department for chest pain. Patient states the chest pain woke her up from sleep this morning about 03:30 and has been persistent ever since. Nothing seems to make the pain better or worse. She denies having pain like this. She states is a sharp pain in her midsternal region. Does not radiate anywhere. She notes she does have a PF all. She has been seen both [facility] and [facility] for this PFO as she has been trying to kit and the finger what to do with it. The PFO was found after an echo was performed due to previous small strokes she has had. The strokes have not caused any symptoms other than headaches. She has a history of migraines. At 1st the [facility] doctors wanted to close it but then she was able again with [facility], her main providers, and they told her not to have surgery. Now she is planning to get a cardiac CT done at the end of the week. Chest and denies shortness of breath, headache, fevers, chills, dizziness. States she has some mild lightheadedness but she has chronic lightheadedness. Thinks it might be slightly worse today but is not sure. States she also has a history of anxiety. Denies abdominal pain, dysuria, weakness, numbness. No other concerns noted at this time. Related Data Home Medications ?Medication ?Instructions ?Recorded ?Confirmed citalopram 10 mg tablet 10 mg PO DAILY 07/04/22 08/01/24 aspirin 81 mg tablet,delayed 81 mg PO DAILY 08/01/24 08/01/24 release (Adult Low Dose Aspirin) melatonin 08/01/24 Allergies Allergy/AdvReac Type Severity Reaction Status Date / Time amoxicillin (From Augmentin) Allergy Mild Hives Verified 07/21/24 13:59 clavulanic acid (From Allergy Mild Hives Verified 07/21/24 13:59 Augmentin) red dye Allergy Mild Hives Verified 07/21/24 13:59 morphine AdvReac Intermediate Verified 07/21/24 13:59 Review of Systems Status of ROS Reports: 10 or more systems reviewed and unremarkable except as noted in History and below [facility] Medical History Migraine ?G43.909 - Migraine, unspecified, not intractable, without status migrainosus (ICD-10) FELIPA (generalized anxiety disorder) ?F41.1 - Generalized anxiety disorder (ICD-10) Surgical History History of 2 sections ?Z98.891 - History of uterine scar from previous surgery (ICD-10) History of tonsillectomy and adenoidectomy ?Z90.89 - Acquired absence of other organs (ICD-10) Social History Smoking Status: Never smoker Do you use any of these nicotine containing products: None Second hand tobacco smoke exposure: No How often do you have a drink containing alcohol: never How often do you have six or more drinks on one occasion: Never AUDIT-C Alcohol total score: 0 Non-prescribed substance use: denies use Exam Narrative Exam Narrative: Const: Well-nourished, Well-developed, in mild distress Eyes: PERRL, no conjunctival injection, and symmetrical lids HENT: Atraumatic external nose and ears. Moist mucous membranes. Neck: Symmetric, trachea midline, No thyromegaly. CVS: RRR, No murmurs or gallops. Peripheral pulses 2+ and equal in all extremities RESP: Unlabored respiratory effort. Clear to auscultation bilaterally. GI: Nontender/Nondistended, No rebound or guarding. MSK:Extremities w/o deformity, Normal Active ROM, chest pain reproducible with palpation midsternal Skin: Warm, Dry. No rashes or lesions. Neuro: Normal Muscle tone, No focal neurological deficits. Psych: Awake, Alert, & Oriented x3. Appropriate mood and affect. Const Vital Signs, click to edit/add: Vital Signs - 24 hr 08/01/24 16:34 08/01/24 17:21 08/01/24 17:30 Temperature 97.8 F Pulse Rate 61 63 Pulse Rate [Pulse Oximeter] 64 Respiratory Rate 18 Blood Pressure Blood Pressure [Left Upper Arm] 135/89 Pulse Oximetry 98 97 97 Oxygen Delivery Method Room Air 12/17/24 17:32 08/01/24 17:45 08/01/24 18:00 Temperature Pulse Rate 63 60 96 Pulse Rate [Pulse Oximeter] Respiratory Rate Blood Pressure 119/81 Blood Pressure [Left Upper Arm] Pulse Oximetry 97 98 92 Oxygen Delivery Method 08/01/24 18:02 08/01/24 18:15 08/01/24 18:30 Temperature Pulse Rate 66 64 61 Pulse Rate [Pulse Oximeter] Respiratory Rate Blood Pressure 135/98 H Blood Pressure [Left Upper Arm] Pulse Oximetry 96 97 97 Oxygen Delivery Method 08/01/24 18:32 08/01/24 18:45 08/01/24 19:00 Temperature Pulse Rate 62 69 Pulse Rate [Pulse Oximeter] Respiratory Rate Blood Pressure 121/71 Blood Pressure [Left Upper Arm] Pulse Oximetry 96 97 Oxygen Delivery Method 08/01/24 19:02 08/01/24 19:15 Temperature Pulse Rate 62 61 Pulse Rate [Pulse Oximeter] Respiratory Rate Blood Pressure 131/93 H Blood Pressure [Left Upper Arm] Pulse Oximetry 96 97 Oxygen Delivery Method Course Vital Signs Vital signs: Initial Vital Signs Temperature 97.8 F 08/01/24 16:34 Temperature Source Temporal Artery Scan 08/01/24 16:34 Pulse Rate 64 08/01/24 16:34 Respiratory Rate 18 08/01/24 16:34 Blood Pressure 135/89 08/01/24 16:34 Blood Pressure Mean 104 08/01/24 16:34 Blood Pressure Position Supine 08/01/24 16:34 Pulse Oximetry 98 08/01/24 16:34 Oxygen Delivery Method Room Air 08/01/24 16:34 Vital Signs Temperature 97.8 F 08/01/24 16:34 Pulse Rate 64 08/01/24 16:34 Respiratory Rate 18 08/01/24 16:34 Blood Pressure 135/89 08/01/24 16:34 Pulse Oximetry 98 08/01/24 16:34 Oxygen Delivery Method Room Air 08/01/24 16:34 Temperature 97.8 F 08/01/24 16:34 Pulse Rate 61 08/01/24 19:15 Respiratory Rate 18 08/01/24 16:34 Blood Pressure 131/93 H 08/01/24 19:02 Pulse Oximetry 97 08/01/24 19:15 Oxygen Delivery Method Room Air 08/01/24 16:34 MDM - Chest Pain MDM Narrative Medical decision making narrative: Patient is a 54-year-old female presenting for chest pain. The differential diagnosis of chest pain is broad and includes common etiologies such as musculoskeletal strain, GERD, pneumonia, etc. More serious etiologies consid ered include PE, coronary artery disease, pneumothorax, aortic dissection, aortic aneurysm. Will do a chest x-ray look for signs of pneumonia or pneumothorax. EKG and troponin order to look for signs of ACS. I have low concern for PE at this time and did not believe D-dimer is warranted. Will also do viral swabs. She is otherwise stable and seems unlikely to be aortic aneurysm or dissection. Pain is reproducible with palpation this does seem like it is likely costochondritis. EKG initial troponin shows no concerning findings. Repeat troponin also shows no concerning findings I was done 2-1/2 hours later. CBC and BMP showed no concerning findings. Chest x-ray reviewed by myself the radiologist also shows no concerning abnormalities. Viral swab were negative. Based on the chest pain be reproducible with palpation I do believe this is likely costochondritis. I do not see any acute emergent issues. On my review vital signs are stable throughout time in in the emergency department. Oximetry stayed in the mid to high 90s. electrical electronics technician showed no concerning arrhythmias. Informed her to take ibuprofen at home for pain. She is agreeable to this plan. Lab Data Labs: Lab Results 08/01/24 08/01/24 08/01/24 Range/Units 17:02 17:23 19:20 WBC 7.39 (4.50-11.00) K/uL RBC 4.65 (4.00-5.20) m/uL Hgb 12.7 (12.0-16.0) gm/dL Hct 39.0 (33.0-51.0) % MCV 84 (80-100) fL MCH 27 (26-34) pg MCHC 33 (32-36) gm/dL RDW Coeff of Pardeep 12.8 (11.5-15.5) % Plt Count 255 (140-440) K/uL Neut % (Auto) 56.1 (42.0-72.0) % Lymph % (Auto) 32.3 (20-44) % Leake % (Auto) 8.4 (0.0-11.0) % Eos % (Auto) 2.6 (0.0-7.0) % Baso % (Auto) 0.5 (0.0-3.0) % Neut # (Auto) 4.14 (1.7-7.0) K/uL Lymph # (Auto) 2.39 (0.90-2.90) K/uL Leake # (Auto) 0.60 (0.00-0.90) K/UL Eos # (Auto) 0.19 (0.00-0.50) K/uL Baso # (Auto) 0.04 (0.00-0.30) K/uL Abs Immat Gran (auto) 0.01 (0.00-0.30) K/uL Imm/Tot Granulo (auto) 0.1 % Sodium 136 (135-149) mmol/L Potassium 3.6 (3.6-5.1) mmol/L Chloride 104 (96-114) mmol/L Carbon Dioxide 25 (20-32) mmol/L Anion Gap 7 (7-15) mEq/L BUN 11 (7-30) mg/dL Creatinine 0.6 (0.5-1.5) mg/dL Estimated Creat Clear 96.45 Estimated GFR 107 ml/min Glucose 84 (60-115) mg/dL Calcium 8.7 (8.4-10.6) mg/dL Troponin I < 0.01 L (0.01-0.04) ng/mL SARS-CoV-2 (PCR) Negative SARS-CoV-2 (Negative) Influenza Type A (PCR) Negative PCR FLU A (Negative) Influenza Type B (PCR) Negative PCR FLU B (Negative) RSV (PCR) Negative PCR RSV (Negative) POC Troponin I 0.00 L 0.00 L (0.01-0.04) ng/ml Imaging Data Chest x-ray: Radiologist's impression: Negative chest. Dictated by Alisha Mac MD @ 08/01/2024 6:37:26 PM ECG Data Attestation: I personally reviewed and interpreted this ECG as follows: Prior ECG tracings: available for review Interpretation: normal sinus rhythm with a rate of 63 beats per minute, normal intervals, normal axis, no ST or T-wave abnormalities. Appears similar to previous EKG on file Discharge Plan Discharge Clinical Impression: Acute chest wall pain Patient Disposition: Home, Self-Care Condition: Stable Instructions: Chest Wall Pain (ED) Additional Instructions: He notice any emergent issues your lab work or imaging. No signs of heart disease at this time. I do believe here suffering from costochondritis which is inflammation of the chest for her take ibuprofen for pain. Follow-up with your primary care provider. Return for new or worsening symptoms. Take ibuprofen or other NSAIDs for your pain. Prescriptions: No Action citalopram 10 mg tablet 10 mg PO DAILY aspirin [Adult Low Dose Aspirin] 81 mg tablet,delayed release (DR/EC) 81 mg PO DAILY melatonin Follow Up/Referrals: Shanelle Renee MD [Primary Care Provider] - Stand Alone Forms: PA Semi Info Instructions
[2024-08-01 17:54] LABS: Chloride* 104 mmol/L (96-114); Potassium* 3.6 mmol/L (3.6-5.1); Sodium* 136 mmol/L (135-149)
[2024-08-01 17:57] LABS: Anion Gap 7 mEq/L (7-15); Blood Urea Nitrogen* 11 mg/dL (7-30); Carbon Dioxide* 25 mmol/L (20-32); Creatinine* 0.6 mg/dL (0.5-1.5); Est. Creatinine Clearance* 96.45; Estimated Glomerular Filt Rate 107 ml/min; Glucose* 84 mg/dL (60-115)
[2024-08-01 17:58] LABS: Calcium* 8.7 mg/dL (8.4-10.6)
[2024-08-01 18:09] LABS: PCR FLU A Negative PCR FLU A (Negative); PCR FLU B Negative PCR FLU B (Negative); PCR RSV Negative PCR RSV (Negative); SARS PCR* Negative SARS-CoV-2 (Negative)
[2024-08-01 18:20] LABS: Troponin I* < 0.01 ng/mL (0.01-0.04)
== END 2024-08-01 19:58 | disposition home or self-care (01) ==
PROVIDERS: Emergency Provider Student in an Organized Health Care Education/Training Program; PCP Family Medicine
DX: R07.89 Other chest pain (principal)
CPT/HCPCS: 36415; 71046; 80048; 84484; 85025; 87631; 93005; 99283; 99284; 99285

== ENCOUNTER 2024-10-13 22:05 | Emergency (ER) | payer BC, SELFPAY ==
--- OUTSIDE RECORDS SUMMARY | 2024-10-13 22:10 | XMS_ITS | Encounter Summary ---
Author Organization [facility] Address [address] [place] [id number] Care Team Providers Care Suede Brusher Name Role Phone Elsewhere, Pcp Primary Care Provider Unavailabl e Encounter Details Date Type Department Care Team (Late st Contact Info) Description 08/20/2024 Documentation [facility] in [place], [place] [address] [place] [phone] Leonarda Ortiz, LNataliaP.N. Social History Tobacco Use Types Packs/Day Years Used Date Smoking Tobacco: Never Smokeless Tobacco: Never [facility] Utilities Answer Date Recorded In the past 12 months has th e electric, gas, oil, or water company threatened to shut off services in your home? No 07/25/2024 Exercise Vital Sign Answer Date Recorde d On average, how many days pe r week do you engage in moderate to strenuous exercise (like a brisk walk)? 4 days 07/25/2024 On average, how many minutes do you engage in exercise at this level? 30 min 07/25/2024 Hunger Vital Sign Answer Date Recorded Within the past 12 months, y ou worried that your food would run out before you got the money to buy more. Patient declined Within the past 12 months, t he food you bought just didn't last and you didn't have money to get more. Patient declined 05/2024 PRAPARE - Transportation Answer Date Re corded In the past 12 months, has l ack of transportation kept you from medical appointments or from getting medications? No 07/16 In the past 12 months, has l ack of transportation kept you from meetings, work, or from getting things needed for daily living? No 07/25/2024 Nutrition Answer Date Recorded On average, how many serving s of fruits and vegetables do you eat per day (serving size is equal to 1 cup or approximately the size of a tennis ball)? 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 I have a [facility] place to live 07/25/2024 Comments Unknown Sex and Gender Information Value Date Recorded Sex Assigned at Female 07/25/2024 9:49 AM OCCUPATIONAL THERAPY PROFESSOR Legal Sex Female 6:01 PM OCCUPATIONAL THERAPY PROFESSOR Gender Identity Female 07/25/2024 9:49 AM OCCUPATIONAL THERAPY PROFESSOR Sexual Orientation Straight 07/25/2024 9: 49 AM OCCUPATIONAL THERAPY PROFESSOR documented as of this encounter Progress Notes * Leonarda Ortiz L.PNataliaN. - 08/20/2024 12:19 AM CST Primary Care Provider: Name : Shanelle Francis Address : [address] [place] [address] Referring physician is the same as PCP. History of present illness: Patient is coming to the [facility] in order to have surgery, have reconstructive surgery and haveall treatments. She has no schedule limitations regarding her future appointment at [facility]. She reports her diagnosis was discovered based on a routine screening. She does not have a history of breast cancer. The date of the biopsy confirming the new diagnosis was 08-15-24. Based on her answers, she does not have inflammatory breast cancer. Tumor is involving 1 site, tumor size is lt;1 cm. She did not have a lymph node biopsy. She has not had any treatment yet. Cardiac history: Patient denies any cardiac conditions. Allergies: Patient reports a penicillin allergy. Social information: Patient lives with others, she is unsure if she will have assistance in the home after surgery or during treatment. Her support systems include family and friends. She reports anxiety, financial concerns, employment concerns and My kids lost their dad/my to cancer 2 years ago and this is a big stresser. I still have young kids living at home relating to her new diagnosis and she is not interested in talking with a clinician about stress management. She denies past or present tobacco use. Tests and images: Patient has completed the following tests: mammogram, ultrasound, biopsy and echocardiogram - performed in the last 6 months. Breast biopsy: Side: Right. Diagnosis: Invasive lobular carcinoma. Grade: ILC- 2. ER: Positive, 97%. [place]: Positive, 95% HER2: Negative (score 1+) Ki-67: 10%. Medical tests taken in the last 12 months: Biopsy Aug 15, 2024, [facility] lab- Pathology Mammogram Aug 02, 2024, [facility] Radiology PATIONAL THERAPY PROFESSOR documented in this encounter Plan of Treatment Upcoming Encounters Date Type Department Care Team (Latest Contact Info) Description 10/16/2024 7:30 AM OCCUPATIONAL THERAPY PROFESSOR Virtual Visit Department of Cardiovascular Medicine in [place], [place] [address] [place] [phone] Tre Dumas M.D. [address] [place] [phone] 10/19/2024 10:15 AM OCCUPATIONAL THERAPY PROFESSOR Clinical Communication Virtual Review in [place], [place] 200 [place] [phone] 10/20/2024 11:00 AM OCCUPATIONAL THERAPY PROFESSOR Comprehensive Visit Division of Plastic Surgery in [address] [phone] Foster Mcclendon B.M., B.Ch., Ph.D. [address] [place] [phone] 10/20/2024 12:00 PM OCCUPATIONAL THERAPY PROFESSOR Office Visit Division of Breast and Melanoma Surgical Oncology in [address] [phone] Brie Durant M.D. [address] [place] [phone] 10/30/2024 7:30 AM CDT Appointment Department of Radiology, [facility], in [place], [place] [address] [place] [phone] Brie Durant M.D. [address] [place] [phone] Discharge Disposition: Home or Self Care 10/30/2024 8:20 AM CDT Hospital Encounter [facility] 01 4 AM ADMIT [address] [place] [phone] Brie Durant M.D. [address] [place] [phone] 10/30/2024 8:20 AM CDT - 10/30/2024 1:24 PM CDT Surgery [facility] MAIN OR [address] [place] [phone] Brie Durant M.D. [address] [place] [phone] BILATERAL SKIN SPARING MASTECTOMY 11/08/2024 10:00 AM CDT Comprehensive Visit Department of Oncology in [place], [place] [address] [place] [phone] Meghna Soto M.B., B.Ch. [address] [place] [phone] 11/08/2024 1:00 PM CDT Office Visit Division of Breast and Melanoma Surgical Oncology in [place], [place] [address] [place] [phone] Geno Stevenson, BASE FILLER, C.N.P., D.N.P. [address] [place] [phone] 11/13/2024 8:00 AM CDT Office Visit Division of Plastic Surgery in [place], [place] 200 [place] [phone] Yoon Hamilton, KRISSY, C.N.P., D.N.P. [address] [place] [phone] Scheduled Procedures Name Priority Associated Diagnoses Date/Ti me MASTECTOMY - SKIN SPARING 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) 10/30/2024 8:20 AM CDT BIOPSY SENTINEL LYMPH NODE AXILLARY - PREOPERATIVE LYMPHOSCINTIGRAPHY 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) 10/30/2024 8:20 AM CDT DISSECTION LYMPH NODE AXILLARY 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) 10/30/2024 8:20 AM CDT RECONSTRUCTION BREAST WITH TISSUE COMPOSITION TEACHER 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) 10/30/2024 8:20 AM CDT documented as of this encounter Visit Diagnoses Not on filedocumented in this encounter Care Teams Suede Brusher Relationship Specialty Start Date End Date Elsewhere, Pcp PCP - General Internal Medicine 07/25/24 documented as of this encounter
--- NOTE | 2024-10-13 22:11 | ED.GENADULT ---
HPI - General Adult General Date Seen: 10/13/24 Chief complaint: Extremity Pain/Injury, Upper Stated complaint: hit the side of her L hand Time Seen by Provider: 10/13/24 22:10 History of Present Illness HPI narrative: Very pleasant 54-year-old female presenting to the ER today with left hand injury. 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 She was gesturing today during her dance class and accidentally struck the ulnar border of her left hand (over the left 5th metacarpal) against the top of a hard half wall. She suffered pain there and has now developed bruising and swelling. She came to the ER to make sure her hand is not broken. She has no numbness or tingling in her hand. She is able to flex and extend the MCP, PIP, DI P of her fingers. No wrist pain. No other injury. Related Data Home Medications ?Medication ?Instructions ?Recorded ?Confirmed citalopram 10 mg tablet 10 mg PO DAILY 07/04/22 08/01/24 aspirin 81 mg tablet,delayed 81 mg PO DAILY 08/01/24 08/01/24 release (Adult Low Dose Aspirin) melatonin 08/01/24 Allergies Allergy/AdvReac Type Severity Reaction Status Date / Time amoxicillin (From Augmentin) Allergy Mild Hives Verified 07/21/24 13:59 clavulanic acid (From Allergy Mild Hives Verified 07/21/24 13:59 Augmentin) red dye Allergy Mild Hives Verified 07/21/24 13:59 morphine AdvReac Intermediate Verified 07/21/24 13:59 [facility] PFS Medical History Migraine ?G43.909 - Migraine, unspecified, not intractable, without status migrainosus (ICD-10) FELIPA (generalized anxiety disorder) ?F41.1 - Generalized anxiety disorder (ICD-10) Surgical History History of 2 sections ?Z98.891 - History of uterine scar from previous surgery (ICD-10) History of tonsillectomy and adenoidectomy ?Z90.89 - Acquired absence of other organs (ICD-10) Social History Smoking Status: Never smoker Do you use any of these nicotine containing products: None Second hand tobacco smoke exposure: No How often do you have a drink containing alcohol: never How often do you have six or more drinks on one occasion: Never AUDIT-C Alcohol total score: 0 Non-prescribed substance use: denies use Exam Narrative: Exam Narrative: Constitutional: Appears well-developed and well-nourished. Active. Non-toxic appearing. HENT: Head: Atraumatic. No signs of injury. Nose: No nasal discharge. Mouth/Throat: Mucous membranes are moist. Eyes: Conjunctivae normal and EOM are normal. Pupils are equal, round, and reactive to light. Right eye exhibits no discharge. Left eye exhibits no discharge. No icterus. Neck: Normal range of motion. Neck supple. No adenopathy. No stridor. Cardiovascular: Normal rate and regular rhythm. No murmur heard. No murmurs, rubs, or gallops. Brisk capillary refill Pulmonary/Chest: Effort normal. No stridor. No respiratory distress. Musculoskeletal: Normal except for her left hand-normal range of motion. No edema. No tenderness. No deformity. Left hand: There is a 1 x 2 cm oval area of purple ecchymosis and tenderness on the ulnar border of the hand in the mid left 5th metacarpal region.. No bony crepitus. No deformity. No tenderness over the MCP, proximal phalanges, PIP, middle phalanges, DI P, distal phalanges. Intact ulnar, median, radial nerve function. Intact digital nerve function. Normal distal cap refill. Wrist is nontender including ulnar styloid, dorsal wrist, scaphoid, volar wrist. Neurological: Alert. Normal strength. No cranial nerve deficit or sensory deficit. Coordination normal. GCS eye subscore is 4. GCS verbal subscore is 5. GCS motor subscore is 6. Skin: Skin is warm. No rash noted. Const: Vital Signs, click to edit/add: Vital Signs - 24 hr 10/13/24 22:14 Temperature 97.4 F L Pulse Rate [Pulse Oximeter] 82 Respiratory Rate 16 Blood Pressure [Ri ght Upper Arm] 122/90 H Pulse Oximetry 99 Oxygen Delivery Me thod Room Air Course Vital Signs Vital signs: Initial Vital Signs Temperature 97.4 F L 10/13/24 22:14 Temperature Source Temporal Artery Scan 10/13/24 22:14 Pulse Rate 82 10/13/24 22:14 Pulse Rhythm Regular 10/13/24 22:14 Respiratory Rate 16 10/13/24 22:14 Blood Pressure 122/90 H 10/13/24 22:14 Blood Pressure Mean 100 10/13/24 22:14 Blood Pressure Position Sitting 10/13/24 22:14 Pulse Oximetry 99 10/13/24 22:14 Oxygen Delivery Method Room Air 10/13/24 22:14 Vital Signs Temperature 97.4 F L 10/13/24 22:14 Pulse Rate 82 10/13/24 22:14 Respiratory Rate 16 10/13/24 22:14 Blood Pressure 122/90 H 10/13/24 22:14 Pulse Oximetry 99 10/13/24 22:14 Oxygen Delivery Method Room Air 10/13/24 22:14 Temperature 97.4 F L 10/13/24 22:14 Pulse Rate 82 10/13/24 22:14 Respiratory Rate 16 10/13/24 22:14 Blood Pressure 122/90 H 10/13/24 22:14 Pulse Oximetry 99 10/13/24 22:14 Oxygen Delivery Method Room Air 10/13/24 22:14 Medical Decision Making MDM Narrative Medical decision making narrative: Very pleasant 54-year-old female presenting to the ER today with accidental trauma to the ulnar border of her left hand. She presents with pain, swelling, ecchymosis. She is neurologically intact. Fortunately x-rays of her left hand are negative for any acute fracture. Suspect that her pain is probably due to contusion. At this point would be safe for outpatient management with rest, ice, elevation. [id number] meds as needed for pain. Precautions for return to the ER potential for a a occult fracture are reviewed with the patient. The for follow-up reviewed. Questions answered. Discharge Plan Discharge Clinical Impression: Contusion of hand Patient Disposition: Home, Self-Care Condition: Stable Instructions: Contusion in Adults (ED) Additional Instructions: Good news, your x-rays look good. We do not see any broken bones. We suspect that your swelling and bruising is probably due to a contusion. This usually will heal with rest, ice for 15 minutes every few hours, and elevation (try to keep your hand elevated when possible to help reduce swelling). You can use Tylenol or ibuprofen if needed for pain. Please come back to the ER or see your doctor if her hand is not improving within the next 5-7 days Prescriptions: No Action citalopram 10 mg tablet 10 mg PO DAILY aspirin [Adult Low Dose Aspirin] 81 mg tablet,delayed release (DR/EC) 81 mg PO DAILY melatonin Follow Up/Referrals: Shanelle Renee MD [Primary Care Provider] - Stand Alone Forms: [employer] Info Instructions
--- OUTSIDE RECORDS SUMMARY | 2024-10-13 22:11 | XMS_ITS | Encounter Summary ---
Author Organization [facility] Address [address] [place] [phone] Care Team Providers Care Drier Transfer Car Operator Name Role Phone Elsewhere, Pcp Primary Care Provider Unavailabl e Reason for Referral * Outpatient (Routine) - Closed Specialty Diagnoses / Procedures Referred By Safia garcia Referred To Contact Diagnoses Patent Foramen Ovale (HCC) Procedures US Lower Extremity Veins Bilateral Tamika Santiago M.D. [address] [place] [phone] Phone: tel: fax: [facility] Referral ID Status Reason Start Date Expiration Date Visits Re quested Visits Authorized [id number] Closed 07/25/2024 07/25/2025 1 1 MOTOR OPERATOR Reason for Visit * Outpatient (Routine) - Closed Specialty Diagnoses / Procedures Referred By Safia garcia Referred To Contact Diagnoses Patent Foramen Ovale (HCC) Procedures US Lower Extremity Veins Bilateral Tamika Santiago M.D. [address] [place] [address] Phone: tel: fax: [facility] Referral ID Status Reason Start Date Expiration Date Visits Re quested Visits Authorized [id number] Closed 07/25/2024 07/25/2025 1 1 Encounter Details Date Type Department Care Team (Latest Contact Info) Description 09/01/2024 1:13 PM TRIP MOTOR OPERATOR - 09/01/2024 11:59 PM TRIP MOTOR OPERATOR Hospital Encounter Department of Radiology, [facility], in [place], [place] [address] [place] [address] Tamika Santiago M.D. [address] [place] [address] Patent Foramen Ovale (HCC) Discharge Disposition: Home or Self Care Social History Tobacco Use Types Packs/Day Years Used Date Smoking Tobacco: Never Passive Smoke Exposure: Past Smokeless Tobacco: Never Alcohol Use Standard Drinks/Week Comments Not Currently 0 (1 standard drink = 0.6 oz pur e alcohol) [facility] Utilities Answer Date Recorded In the past 12 months has e [facility], gas, oil, or water [employer] threatened to shut off services in your [...] Date Recorded Dental: Regular Dentist Yes 07/25/20 24 Employment Answer Date Recorded 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 I have a [facility] place to live 07/25/2024 Comments No Sex and Gender Information Value Date Recorded Sex Assigned at Female 07/25/2024 9:49 AM TRIP MOTOR OPERATOR Legal Sex Female 6:01 PM TRIP MOTOR OPERATOR Gender Identity Female 07/25/2024 9:49 AM TRIP MOTOR OPERATOR Sexual Orientation Straight 07/25/2024 9: 49 AM TRIP MOTOR OPERATOR documented as of this encounter Medications at Time of Discharge albuterol 90 mcg/actuation inhaler Inhale 2 puffs 4 (four) times a day as needed. 06/18/[address] tablet Take 81 mg by mouth daily. cholecalciferol (Vitamin D3) 25 mcg (1,000 Unit) capsule Take 1 capsule by mouth daily. 09/21/2017 citalopram (CeleXA) 10 mg tablet Take 1 tablet by mouth at bedtime. 07/04/2024 LORazepam (Ativan) 1 mg tablet Take 1 mg by mouth as needed. Prior to flying 06/28/2024 melatonin 1 mg tablet Take 1 tablet by mouth at bedtime. 01/17/2018 documented as of this encounter Plan of Treatment Upcoming Encounters Date Type Department Care Team (Latest Contact Info) Description 10/16/2024 7:30 AM TRIP MOTOR OPERATOR Virtual Visit Department of Cardiovascular Medicine in [place], [place] [address] [place] [phone] Tre Dumas M.D. [address] [place] [phone] 10/19/2024 10:15 AM TRIP MOTOR OPERATOR Clinical Communication Virtual Review in [place], [place] 200 [place] [phone] 10/20/2024 11:00 AM TRIP MOTOR OPERATOR Comprehensive Visit Division of Plastic Surgery in [place], [place] [address] [place] [phone] Foster Mcclendon B.M., B.Ch., Ph.D. [address] [place] [phone] 10/20/2024 12:00 PM TRIP MOTOR OPERATOR Office Visit Division of Breast and Melanoma Surgical Oncology in [place], [place] [address] [place] [phone] Brie Durant M.D. [address] [place] [phone] 10/30/2024 7:30 AM CDT Appointment Department of Radiology, [facility], in [place], [place] [address] [place] [phone] Brie Durant M.D. [address] [place] [phone] Discharge Disposition: Home or Self Care 10/30/2024 8:20 AM CDT Hospital Encounter RST RO 01 4 AM ADMIT [address] [place] [phone] Brie Durant M.D. [address] [place] [phone] 10/30/2024 8:20 AM CDT - 10/30/2024 1:24 PM CDT Surgery [facility] MA[facility] OR [address] [place] [address] Brie Durant M.D. [address] [place] [phone] BILATERAL SKIN SPARING MASTECTOMY 11/08/2024 10:00 AM CDT Comprehensive Visit Department of Oncology in [place], [place] [address] [place] [phone] Meghna Soto M.B., B.Ch. [address] [place] [phone] 11/08/2024 1:00 PM CDT Office Visit Division of Breast and Melanoma Surgical Oncology in [place], [place] [address] [place] [phone] Geno Stevenson APRN, C.N.P., D.N.P. [address] [place] [phone] 11/13/2024 8:00 AM CDT Office Visit Division of Plastic Surgery in [place], [place] [address] [place] [phone] Yoon Hamilton APRN, C.N.P., D.N.P. [address] [place] [phone] Scheduled Procedures Name Priority Associated Diagnoses Date/Ti [...] 8:20 AM CDT RECONSTRUCTION BREAST WITH TISSUE STABILIZING MACHINE OPERATOR 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) 10/30/2024 8:20 AM CDT documented as of this encounter Procedures Procedure Name Priority Date/Time Associated Diagnosis Comments US LOWER EXTREMITY VEINS BILATERAL RAD - Routine (most inpatients and all outpatients) 09/01/2024 2:25 PM TRIP MOTOR OPERATOR Patent Foramen Ovale (HCC) documented in this encounter Results * US Lower Extremity Veins Bilateral (09/01/2024 2:25 PM TRIP MOTOR OPERATOR) Anatomical Region Laterality Modality Lower Extremity, Ultrasound RST LOS, Ultrasound ARZ LOS, Ultrasound FLA LOS Bilateral Ultrasound Impressions 09/01/2024 2:30 PM TRIP MOTOR OPERATOR Negative for acute DVT within both lower extremities. Narrative 09/01/2024 2:30 PM TRIP MOTOR OPERATOR EXAM: US LOWER EXTREMITY VEINS BILATERAL Exam performed with color and spectral Doppler analysis. COMPARISON: None. FINDINGS: RIGHT: Common Femoral Vein: Negative. Profunda Femoral Vein: Negative. Femoral Vein: Negative. Popliteal Vein: Negative. Gastrocnemius Veins: Negative where seen. Soleal Veins: Negative where seen. Posterior Tibial Veins: Negative where seen. Peroneal Veins: Negative where seen. Great Saphenous Vein: Negative where seen. Small Saphenous Vein: Not evaluated. Popliteal Fossa: Negative. LEFT: Common Femoral Vein: Negative. Profunda Femoral Vein: Negative. Femoral Vein: Negative. Popliteal Vein: Negative. Gastrocnemius Veins: Negative where seen. Soleal Veins: Negative where seen. Posterior Tibial Veins: Negative where seen. Peroneal Veins: Negative where seen. Great Saphenous Vein: Negative where seen. Small Saphenous Vein: Not evaluated. Popliteal Fossa: Negative. Information on venous thrombosis and management can be found on the eSnips site. Link [email or web address] Procedure Note Sarah Chase M.D. - 09/01/2024 EXAM: US LOWER EXTREMITY VEINS BILATERAL Exam performed with color and spectral Doppler analysis. COMPARISON: None. FINDINGS: RIGHT: Common Femoral Vein: Negative. Profunda Femoral Vein: Negative. Femoral Vein: Negative. Popliteal Vein: Negative. Gastrocnemius Veins: Negative where seen. Soleal Veins: Negative where seen. Posterior Tibial Veins: Negative where seen. Peroneal Veins: Negative where seen. Great Saphenous Vein: Negative where seen. Small Saphenous Vein: Not evaluated. Popliteal Fossa: Negative. LEFT: Common Femoral Vein: Negative. Profunda Femoral Vein: Negative. Femoral Vein: Negative. Popliteal Vein: Negative. Gastrocnemius Veins: Negative where seen. Soleal Veins: Negative where seen. Posterior Tibial Veins: Negative where seen. Peroneal Veins: Negative where seen. Great Saphenous Vein: Negative where seen. Small Saphenous Vein: Not evaluated. Popliteal Fossa: Negative. Information on venous thrombosis and management can be found on theeSnips site. [email or web address] IMPRESSION: Negative for acute DVT within both lower extremities. Tamika C Santiago M.D. IMG US PROCEDURES Final Resul t documented in this encounter Visit Diagnoses Diagnosis Patent Foramen Ovale (HCC) 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) documented in this encounter Care Teams Drier Transfer Car Operator Relationship Specialty Start Date End Date Elsewhere, Pcp PCP - General Internal Medicine 07/25/24 documented as of this encounter
--- OUTSIDE RECORDS SUMMARY | 2024-10-13 22:11 | XMS_ITS | Encounter Summary ---
Author Organization [facility] Address [address] [place] [id number] Care Team Providers Care Sharepoint Trainer Name Role Phone Elsewhere, Pcp Primary Care Provider Unavailabl e Reason for Referral * MRI/CAT/PET Scan (Routine) - Closed Specialty Diagnoses / Procedures Referred By Safia garcia Referred To Contact Radiology Diagnoses 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) Procedures MR Breast Bilateral without and with IV Contrast TN MRI BREAST WOW CNTRST W/CAD BILAT Peggy Silvestre M.D., Ph.D. 200 [place] [address] Phone: tel: fax: [facility] Referral ID Status Reason Start Date Expiration Date Visits Re quested Visits Authorized [id number] Closed 08/23/2024 08/23/2025 1 1 F COUNSELOR * Outpatient (Routine) - Authorized Specialty Diagnoses / Procedures Referred By Safia garcia Referred To Contact General Surgery Diagnoses 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) Peggy Silvestre M.D., Ph.D. 200 [place] [address] Phone: tel: fax: [facility] Referral ID Status Reason Start Date Expiration Date V isits Requested Visits Authorized [id number] Authorized 08/23/2024 02/22/2026 1 1 Scheduling Instructions Schedule AFTER [facility] appointment F COUNSELOR * Outpatient (Routine) - Closed Specialty Diagnoses / Procedures Referred By Safia t Referred To Contact Diagnoses Allergy Penicillin Antibiotic Personal History Procedures Penicillin Skin Test Peggy Silvestre M.D., Ph.D. [address] [place] [phone] Phone: tel: fax: [facility] Referral ID Status Reason Start Date Expiration Date Visits Re quested Visits Authorized [id number] Closed 08/23/2024 08/23/2025 1 1 F COUNSELOR * Outpatient (Routine) - Closed Specialty Diagnoses / Procedures Referred By Conttania t Referred To Contact Allergy and Immunology Diagnoses Allergy Penicillin Antibiotic Personal History Peggy Silvestre M.D., Ph.D. [address] [place] [phone] Phone: tel: fax: [facility] Referral ID Status Reason Start Date Expiration Date Visits Re quested Visits Authorized [id number] Closed 08/23/2024 02/22/2026 1 1 Scheduling Instructions Schedule allergy consult AFTER [facility] appointment. No need to call patient. 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 I have a [facility] place to live 07/25/2024 Comments Unknown Sex and Gender Information Value Date Recorded Sex Assigned at Female 07/25/2024 9:49 AM GRIEF COUNSELOR Legal Sex Female 6:01 PM GRIEF COUNSELOR Gender Identity Female 07/25/2024 9:49 AM GRIEF COUNSELOR Sexual Orientation Straight 07/25/2024 9: 49 AM GRIEF COUNSELOR documented as of this encounter Miscellaneous Notes * Telephone Encounter - Leonarda Ortiz L.PNataliaN. - 08/31/2024 2:28 PM GRIEF COUNSELOR Maryam Coonsch is scheduled to be seen for [facility] 09/01/24 The current status of imaging, pathology and patient care is as follows: Pathology Has been overread Imaging has been overread The patient has additional testing pending locally: no F COUNSELOR * Telephone Encounter - Leonarda Ortiz L.P.N. - 08/23/2024 8:16 AM GRIEF COUNSELOR SUBJECTIVE REFERRAL: External Shanelle Renee M.D. ([phone]) [place] [phone] Local Care Provider Same as referring provider REASON FOR COMMUNICATION SAFETY ENGINEER [employer]SE[employer] focused assessment phone call in preparation for first appointment with newly diagnosed breast cancer patient. Patient's expectations of the upcoming visit: Opinion, all treatments and follow-up at [facility]. Patient stated her 3 years ago of Brain Cancer and was treated here at [facility]. She currently lives alone with youngest child (14). At the time of my phone call related to her recent diagnosis of Breast Cancer she did not want to speak to a Psychologist or Branch Office Manager, but I told her to please reach out if things change and we can line up a consult. Oncology History 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) 08/15/2024 Initial Diagnosis Screening mammogram: Bilateral, 08/03/24 . RIGHT Breast: Focal asymmetric density with architectural distortion upper outer quadrant 8 cm from the nipple. LEFT Breast: No suspicious findings. Diagnostic mammogram: Right, 08/11/24 . Persistent suspicious mass with architectural distortion upper outer quadrant. No suspicious calcifications. Ultrasound breast/axilla: Right, 08/11/24 . At 10 o'clock, 8 cm from the nipple, there is a hypoechoic solid nodule which is taller than wide measuring 6 x 9 x 9 mm. 08/15/2024 Biopsy/Pathology Biopsy: Core biopsy, Right, 08/15/24 ; Clip: Vision. invasive lobular carcinoma; Grade: 2. Hormone receptor testing: Estrogen positive (97%), Progesterone positive (95%), HER2 1+ (negative),and Ki-67 10%. Per [facility] Pathology Review: Not complete. Genetic Testing and Tumor Genotyping Genetic testing: Scheduled, [facility] Consult Pending. Please refer to the Oncology History for the most up to date information on imaging, pathology, & treatment SOCIAL HISTORY Current living status: Lives home alone with 14 year old . 3 years ago from brain cancer treated at [facility]. Caregivers in the home: No. Additional support systems: Yes. Able to return to current living environment: Yes. Transportation to and from appointments/treatments: Yes. 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 Psychosocial: Anxiety. ASSESSMENT/PLAN PATIENT INSTRUCTIONS Patient advised: Plan to stay up to 5 days to allow for additional imaging or testing. Notify nurse if any additional imaging, testing, biopsies, surgery, or starting any treatments (Chemotherapy/Radiation) Be aware that the last 3 years of outside breast imaging and biopsy slides will be requested for review. There are fees associated with having images and biopsy slides reviewed. Additional imaging may be recommended/scheduled based on the radiology interpretation. Bring a list of current medications including supplements and over the counter. Please call [phone] if needing to cancel or reschedule. Information/Education: patient/caller able to teach back The following references were used: none F COUNSELOR F COUNSELOR F COUNSELOR documented in this encounter Plan of Treatment Upcoming Encounters Date Type Department Care Team (Latest Contact Info) Description 10/16/2024 7:30 AM GRIEF COUNSELOR Virtual Visit Department of Cardiovascular Medicine in [place], [place] [address] [place] [phone] Tre Dumas M.D. [address] [place] [phone] 10/19/2024 10:15 AM GRIEF COUNSELOR Clinical Communication Virtual Review in [place], [place] 200 [place] [phone] 10/20/2024 11:00 AM GRIEF COUNSELOR Comprehensive Visit Division of Plastic Surgery in [place], [place] [address] [place] [phone] Foster Mcclendon B.M., B.Ch., Ph.D. [address] [place] [phone] 10/20/2024 12:00 PM GRIEF COUNSELOR Office Visit Division of Breast and Melanoma Surgical Oncology in [place], [place] [address] [place] [phone] Brie [place] M.D. [address] [place] [phone] 10/30/2024 7:30 AM CDT Appointment Department of Radiology, [facility], in [place], [place] [address] [place] [phone] Brie [place] M.D. [address] [place] [phone] Discharge Disposition: Home or Self Care 10/30/2024 8:20 AM CDT Hospital Encounter RST RO 01 4 AM ADMIT [address] [place] [phone] Brie [place] M.D. [address] [place] [phone] 10/30/2024 8:20 AM CDT - 10/30/2024 1:24 PM CDT Surgery RST RO MAIN OR [address] [place] [address] Brie [place] M.D. [address] [place] [phone] BILATERAL SKIN SPARING MASTECTOMY 11/08/2024 10:00 AM CDT Comprehensive Visit Department of Oncology in [place], [place] [address] [place] [phone] Meghna Soto M.B., B.Ch. [address] [place] [phone] 11/08/2024 1:00 PM CDT Office Visit Division of Breast and Melanoma Surgical Oncology in [place], [place] [address] [place] [phone] Geno Stevenson APRN, C.N.P., D.N.P. [address] [place] [phone] 11/13/2024 8:00 AM CDT Office Visit Division of Plastic Surgery in [place], [place] [address] [place] [phone] Yoon Hamilton APRN, C.N.P., D.N.P. [address] [place] [phone] Scheduled Orders Name Type Priority Associated Diagnoses Orde r Schedule Penicillin Skin Test Procedures Routine Allergy Penicillin Antibiotic Personal History Expected: 09/07/2024, Expires: 11/21/2025 Scheduled Procedures Name Priority Associated Diagnoses Date/Ti [...] 8:20 AM CDT RECONSTRUCTION BREAST WITH TISSUE HAT AND CAP SEWER 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) 10/30/2024 8:20 AM CDT Scheduled Referrals Name Type Priority Associated Diagnoses Order Schedule Allergy and Immunology - Penicillin allergy consult (clinic) Outpatient Referral Routine Allergy Penicillin Antibiotic Personal History Expected: 09/07/2024, Expires: 11/21/2025 General Surgery - Breast consult (clinic) Outpatient Referral Routine 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) Expected: 09/08/2024, Expires: 11/21/2025 documented as of this encounter Results * (ABNORMAL) MR Breast Bilateral without and with IV Contrast (09/05/2024 8:04 PM GRIEF COUNSELOR) Anatomical Region Laterality Modality Breast, Breast Imaging RST L OS, Breast Imaging ARZ LOS, Breast Imaging FLA LOS Bilateral Magnetic Resonance Impressions 09/06/2024 12:19 PM GRIEF COUNSELOR 1. Biopsy-proven malignancy in the 10:00 right breast, 6 cm posterior to the nipple. 2. Suspicious 1.0 cm irregular enhancing mass in the 8:00 right breast, 3.5 cm posterior to the nipple. 3. Suspicious focus of enhancement in the 3:00 right breast, 1.5 cm from the nipple. 4. Suspicious focal area nonmass enhancement in the 6:00 left breast, 6 cm posterior to the nipple. 5. No axillary or internal mammary lymphadenopathy. RECOMMENDATION: Biopsy Recommend MRI directed ultrasound of the 3 suspicious areas of enhancement (2 in the right breast, one in the left) for possible sonographic correlates to the target for biopsy. If sonographic correlates are not identified, multi site MRI guided biopsy is recommended. ASSESSMENT: BI-RADS: 4: Suspicious. Narrative 09/06/2024 12:19 PM GRIEF COUNSELOR EXAM: MR BREAST BILATERAL WITHOUT AND WITH IV CONTRAST INDICATION: Cancer staging HISTORY: 54-year-old female with recently diagnosed right breast ILC. Cancer staging breast MRI. HORMONAL STATUS: LMP 08/20/2024 COMPARISON: Prior exam(s) were available and reviewed for comparison. TECHNIQUE: Dynamic enhanced protocol using IV contrast administration with T1 and T2- weighted images and CAD image analysis. FIBROGLANDULAR TISSUE: c. Heterogeneous fibroglandular tissue. BACKGROUND PARENCHYMAL ENHANCEMENT: b. Mild FINDINGS: RIGHT BREAST: At 10:00, 6 cm posterior to the nipple there is a mildly enhancing irregular mass measuring 0.7 x 0.8 x 0.7 cm with associated biopsy clip artifact (postcontrast axial image 73) probable biopsy-proven malignancy. At 8:00, 3.5 cm posterior to the nipple there is a 0.8 x 0.4 x 1.0 cm irregular enhancing mass (postcontrast axial image 93). At 3:00, 1.5 cm from the nipple there is a 5 mm focus of enhancement above background parenchymal enhancement (postcontrast axial image 76). Additional scattered foci of enhancement are likely on the basis of background. RIGHT AXILLA: No right axillary lymphadenopathy. LEFT BREAST: At 6:00, 6 cm posterior to the nipple there is a 0.5 x 0.5 x 0.7 cm focal area of nonmass enhancement which is slightly above background parenchymal enhancement (postcontrast axial image 105). Additional scattered foci of enhancement are likely on the basis of background. LEFT AXILLA: No left axillary lymphadenopathy. CHEST WALL: No internal mammary lymphadenopathy. OTHER: Benign hepatic cyst. Procedure Note Jessica Gaston M.D. - 09/06/2024 EXAM: MR BREAST BILATERAL WITHOUT AND WITH IV CONTRAST INDICATION: Cancer staging HISTORY: 54-year-old female with recently diagnosed right breast ILC.Cancer staging breast MRI. HORMONAL STATUS: LMP 08/20/2024 COMPARISON: Prior exam(s) were available and reviewed for comparison. TECHNIQUE: Dynamic enhanced protocol using IV contrast administrationwith T1 and T2-weighted images and CAD image analysis. FIBROGLANDULAR TISSUE: c. Heterogeneous fibroglandular tissue. BACKGROUND PARENCHYMAL ENHANCEMENT: b. Mild FINDINGS: RIGHT BREAST: At 10:00, 6 cm posterior to the nipple there is a mildlyenhancing irregular mass measuring 0.7 x 0.8 x 0.7 cm with associatedbiopsy clip artifact (postcontrast axial image 73) probable biopsy-provenmalignancy. At 8:00, 3.5 cm posterior to the nipple there is a 0.8 x 0.4 x 1.0 cmirregular enhancing mass (postcontrast axial image 93). At 3:00, 1.5 cm from the nipple there is a 5 mm focus of enhancement abovebackground parenchymal enhancement (postcontrast axial image 76). Additional scattered foci of enhancement are likely on the basis ofbackground. RIGHT AXILLA: No right axillary lymphadenopathy. LEFT BREAST: At 6:00, 6 cm posterior to the nipple there is a 0.5 x 0.5 x0.7 cm focal area of nonmass enhancement which is slightly abovebackground parenchymal enhancement (postcontrast axial image 105).Additional scattered foci of enhancement are likely on the basis of background. LEFT AXILLA: No left axillary lymphadenopathy. CHEST WALL: No internal mammary lymphadenopathy. OTHER: Benign hepatic cyst. IMPRESSION: 1. Biopsy-proven malignancy in the 10:00 right breast, 6 cm posterior tothe nipple. 2. Suspicious 1.0 cm irregular enhancing mass in the 8:00 right breast,3.5 cm posterior to the nipple. 3. Suspicious focus of enhancement in the 3:00 right breast, 1.5 cm fromthe nipple. 4. Suspicious focal area nonmass enhancement in the 6:00 left breast, 6 cmposterior to the nipple. 5. No axillary or internal mammary lymphadenopathy. RECOMMENDATION: Biopsy Recommend MRI directed ultrasound of the 3 suspicious areas of enhancement(2 in the right breast, one in the left) for possible sonographiccorrelates to the target for biopsy. If sonographic correlates are notidentified, multi site MRI guided biopsy is recommended. ASSESSMENT: BI-RADS: 4: Suspicious. us Peggy Silvestre M.D., Ph.D. IMG MRI PROCEDURES F inal Result * Pathology Review of Outside Material (08/15/2024 1:40 PM GRIEF COUNSELOR) 08/29/2024 11:18 AM GRIEF COUNSELOR DTL Report electronically signed by Andrae Rebolledo M.D. I verify that I have examined all relevant slides/materi als for the specimen(s) and rendered or confirmed the diagnosis. 08/29/2024 11:18 AM GRIEF COUNSELOR DTL Material Received A. [id number]: Breast, right 9 stained slides 08/29/2024 11:18 AM GRIEF COUNSELOR DTL Interpretation FINAL DIAGNOSIS Breast, right, 10:00, 8 cm from nipple, vision clip, ultrasound-gu ided core biopsy ([id number]; 08/15/2024): - Invasive lobular carcinoma, [place] grade II (of III) - Lobular carcinoma in situ, classic type Immunohistoch emical stains reviewed at [facility] demonstrate: E-cadherin: Loss of membranous staining in lobular neoplasia ER: Positive, 91-100% of tumor nuclei staining, strong intensity TN: Positive, 91-100% of tumor nuclei staining, strong intensity Ki-67: 5-10% HER2: Negative, score of 1+ Digital imaging was used in the diagnostic assessment of this case. 08/29/2024 11:18 AM GRIEF COUNSELOR DTL Varies 08/15/2024 1:40 PM GRIEF COUNSELOR 08/25/2024 11:28 AM GRIEF COUNSELOR us Peggy Silvestre M.D., Ph.D. LAB SURG PATH ORDERA BLES Final Result [facility] [address] [place] [address], [facility] [place] [facility] [address] [place] [address] documented in this encounter Visit Diagnoses Diagnosis 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)- Primary Allergy Penicillin Antibiotic Personal History 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) 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) documented in this encounter Care Teams Sharepoint Trainer Relationship Specialty Start Date End Date Elsewhere, Pcp PCP - General Internal Medicine 07/25/24 documented as of this encounter
--- OUTSIDE RECORDS SUMMARY | 2024-10-13 22:11 | XMS_ITS | Encounter Summary ---
Author Organization [facility] Address [address] [place] [phone] Care Team Providers Care Operations Boardman Name Role Phone Elsewhere, Pcp Primary Care Provider Unavailabl e Reason for Visit * Outpatient (Routine) - Closed Specialty Diagnoses / Procedures Referred By Safia garcia Referred To Contact Diagnoses Breast Examination Abnormal Procedures BI Ultrasound Breast Focused Bilateral BI Ultrasound Breast Axilla Right Peggy Silvestre M.D., Ph.D. [address] [place] [phone] Phone: tel: fax: [facility] Referral ID Status Reason Start Date Expiration Date Visits Re quested Visits Authorized [id number] Closed 08/29/2024 08/29/2025 1 1 Encounter Details Date Type Department Care Team (Latest Contact Info) Description 09/06/2024 1:45 PM LEAD DATABASE DEVELOPER - 09/06/2024 11:59 PM [facility] Hospital Encounter Department of Radiology in [place], [place] [address] [place] [phone] Peggy Silvestre M.D., Ph.D. [address] [place] [phone] Breast Examination Abnormal Discharge Disposition: Home or Self Care Social History Tobacco Use Types Packs/Day Years Used Date Smoking Tobacco: Never Passive Smoke Exposure: Past Smokeless Tobacco: Never Alcohol Use Standard Drinks/Week Comments Not Currently 0 (1 standard drink = 0.6 oz pur e alcohol) [facility] Utilities Answer Date Recorded In the past 12 months has e electric, gas, oil, or water company [...] your living situation today? I have a [facility] place to live 07/25/2024 Comments No Sex and Gender Information Value Date Recorded Sex Assigned at Female 07/25/2024 9:49 AM LEAD DATABASE DEVELOPER Legal Sex Female 6:01 PM LEAD DATABASE DEVELOPER Gender Identity Female 07/25/2024 9:49 AM LEAD DATABASE DEVELOPER Sexual Orientation Straight 07/25/2024 9: 49 AM LEAD DATABASE DEVELOPER documented as of this encounter Medications at [...] (Latest Contact Info) Description 10/16/2024 7:30 AM LEAD DATABASE DEVELOPER Virtual Visit Department of Cardiovascular Medicine in [place], [place] [address] [place] [phone] Tre Dumas M.D. [address] [place] [phone] 10/19/2024 10:15 AM LEAD DATABASE DEVELOPER Clinical Communication Virtual Review in [place], [place] 200 [place] [phone] 10/20/2024 11:00 AM LEAD DATABASE DEVELOPER Comprehensive Visit Division of Plastic Surgery in [address] [phone] Foster Mcclendon B.M., B.Ch., Ph.D. [address] [place] [phone] 10/20/2024 12:00 PM LEAD DATABASE DEVELOPER Office Visit Division of Breast and Melanoma Surgical Oncology in [place], [place] [address] [place] [phone] Brie Durant M.D. [address] [place] [phone] 10/30/2024 7:30 AM CDT Appointment Department of Radiology, [facility], in [place], [place] [address] [place] [phone] Brie Durant M.D. [address] [place] [phone] Discharge Disposition: Home or Self Care 10/30/2024 8:20 AM CDT Hospital Encounter RST RO 01 4 AM ADMIT [address] [place] [phone] Brie Durant M.D. [address] [place] [phone] 10/30/2024 8:20 AM CDT - 10/30/2024 1:24 PM CDT Surgery [facility] MA[facility] OR [address] [place] [phone] Brie Durant M.D. [address] [place] [phone] BILATERAL SKIN SPARING MASTECTOMY 11/08/2024 10:00 AM CDT Comprehensive Visit Department of Oncology in [place], [place] [address] [place] [phone] Meghna Soto M.B., B.Ch. [address] [place] [phone] 11/08/2024 1:00 PM CDT Office Visit Division of Breast and Melanoma Surgical Oncology in [place], [place] [address] [place] [phone] Geno Stevenson APRN, C.N.P., D.N.P. [address] [place] [phone] 11/13/2024 8:00 AM CDT Office Visit Division of Plastic Surgery in [place], [place] [address] [place] [phone] Yoon Hamilton APRN, C.N.P., D.N.P. 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) 10/30/2024 8:20 AM CDT documented as of this encounter Procedures Procedure Name Priority Date/Time Associated Diagnosis Comments BI ULTRASOUND BREAST FOCUSED BILATERAL RAD - Routine (most inpatients and all outpatients) 09/06/2024 3:59 PM LEAD DATABASE DEVELOPER Breast Examination Abnormal documented in this encounter Results * BI Ultrasound Breast Focused Bilateral (09/06/2024 3:59 PM LEAD DATABASE DEVELOPER) Anatomical Region Laterality Modality Breast, Breast Imaging RST L OS, Breast Imaging ARZ LOS, Breast Imaging FLA LOS Bilateral Ultrasound Impressions 09/06/2024 4:18 PM LEAD DATABASE DEVELOPER 1. Left breast asymmetry corresponding to overlapping fibroglandular tissue. 2. No ultrasound correlate for the 3 areas of suspicious enhancement noted on breast MRI. 3. No right axillary lymphadenopathy. RECOMMENDATION: Clinical Management Findings were discussed with the patient at the time of her ultrasound. Patient is considering bilateral mastectomies. Consider additional MRI guided biopsies as recommended if it would alter clinical management. ASSESSMENT: BI-RADS: 1: Negative. Narrative 09/06/2024 4:18 PM LEAD DATABASE DEVELOPER EXAM: BI BREAST DIAGNOSTIC LEFT WITH TOMOSYNTHESIS, BI ULTRASOUND BREAST FOCUSED BILATERAL INDICATION: Abnormal outside imaging, MRI directed ultrasound COMPARISON: Prior exam(s) were available and reviewed for comparison. DENSITY: c. The breast(s) are heterogeneously dense, which may obscure small masses. FINDINGS: Left diagnostic mammogram was performed with full-field and spot tomosynthesis views. Previously seen asymmetry in the left posterior breast disperses on additional views, compatible with overlapping fibroglandular tissue. There is similar tissue in this location dating back to at least 07/29/2022. Bilateral breast ultrasound was performed for further evaluation of suspicious findings on 09/05/2024 breast MRI. The right breast was evaluated at the 8:00 position, 3.5 cm from the nipple and at 3:00, 1.5 cm from the nipple in the areas of concern on MRI. No correlating suspicious findings are demonstrated. Ultrasound of the left breast at the 6:00 position, 6 cm from the nipple demonstrates normal breast tissue. No corresponding finding for the MRI enhancement is demonstrated. Ultrasound of the right axilla demonstrates no lymphadenopathy. Procedure Note An Bolden M.D. - 09/06/2024 EXAM: BI BREAST DIAGNOSTIC LEFT WITH TOMOSYNTHESIS, BI ULTRASOUND BREASTFOCUSED BILATERAL INDICATION: Abnormal outside imaging, MRI directed ultrasound COMPARISON: Prior exam(s) were available and reviewed for comparison. DENSITY: c. The breast(s) are heterogeneously dense, which may obscuresmall masses. FINDINGS: Left diagnostic mammogram was performed with full-field andspot tomosynthesis views. Previously seen asymmetry in the left posteriorbreast disperses on additional views, compatible with overlappingfibroglandular tissue. There is similar tissue in this location dating back to at least 07/29/2022. Bilateral breast ultrasound was performed for further evaluation ofsuspicious findings on 09/05/2024 breast MRI. The right breast wasevaluated at the 8:00 position, 3.5 cm from the nipple and at 3:00, 1.5 cmfrom the nipple in the areas of concern on MRI. No correlating suspicious findings are demonstrated. Ultrasound ofthe left breast at the 6:00 position, 6 cm from the nipple demonstratesnormal breast tissue. No corresponding finding for the MRI enhancement isdemonstrated. Ultrasound of the right axilla demonstrates no lymphadenopathy. IMPRESSION: 1. Left breast asymmetry corresponding to overlapping fibroglandulartissue. 2. No ultrasound correlate for the 3 areas of suspicious enhancement notedon breast MRI. 3. No right axillary lymphadenopathy. RECOMMENDATION: Clinical Management Findings were discussed with the patient at the time of her ultrasound.Patient is considering bilateral mastectomies. Consider additional MRIguided biopsies as recommended if it would alter clinical management. ASSESSMENT: BI-RADS: 1: Negative. us Peggy Silvestre M.D., Ph.D. IMG BI PROCEDURES Fi nal Result documented in this encounter Visit Diagnoses Diagnosis Breast Examination Abnormal 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) documented in this encounter Care Teams Operations Boardman Relationship Specialty Start Date End Date Elsewhere, Pcp PCP - General Internal Medicine 07/25/24 documented as of this encounter
--- OUTSIDE RECORDS SUMMARY | 2024-10-13 22:11 | XMS_ITS | Encounter Summary ---
Author Organization [facility] Address [address] [place] [phone] Care Team Providers Care Supervisor Area Name Role Phone Elsewhere, Pcp Primary Care Provider Unavailabl e Reason for Visit * Reason Comments Allergy Testing * Outpatient (Routine) - Closed Specialty Diagnoses / Procedures Referred By Safia garcia Referred To Contact Diagnoses Allergy Penicillin Antibiotic Personal History Procedures Penicillin Skin Test Peggy Silvestre M.D., Ph.D. [address] [place] [phone] Phone: tel: fax: [facility] Referral ID Status Reason Start Date Expiration Date Visits Re quested Visits Authorized [id number] Closed 08/23/2024 08/23/2025 1 1 Encounter Details Date Type Department Care Team (Latest Contact Info) Description 09/07/2024 2:45 PM CALIBRATION TECHNICIAN Clinical Support Division of Allergic Diseases in [place], [place] [address] [place] [phone] Peggy Silvestre M.D., Ph.D. [address] [place] [phone] Annita Garcia R.N. [address] [place] [phone] Allergy Penicillin Antibiotic Personal History Social History Tobacco Use Types Packs/Day Years Used Date Smoking Tobacco: Never Passive Smoke Exposure: Past Smokeless Tobacco: Never Alcohol Use Standard Drinks/Week Comments Not Currently 0 (1 standard drink = 0.6 oz pur e alcohol) [facility] Utilities Answer Date Recorded In the [...] Date Recorded Employment status Working with temporary 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 I have a [facility] place to live 07/25/2024 Comments No Sex and Gender Information Value Date Recorded Sex Assigned at Female 07/25/2024 9:49 AM CALIBRATION TECHNICIAN Legal Sex Female 6:01 PM CALIBRATION TECHNICIAN Gender Identity Female 07/25/2024 9:49 AM CALIBRATION TECHNICIAN Sexual Orientation Straight 07/25/2024 9: 49 AM CALIBRATION TECHNICIAN documented as of this encounter Procedure Notes * Annita Garcia R.N. - 09/07/2024 2:45 PM CST Penicillin and other antibiotic skin test Flowsheet Row Clinical Support from 09/07/2024 in Division of Allergic Diseases in [place], [place] Penicillin and other antibiotics (Prick) Histamine 6mg/ml prick [id number]/ 10x8 flare Diluent without preservative (Prick) 0 Benzylpencilloyl (PrePen) (Major determinant) 0 New Mix Penicillin G (Prick) 0 Alkaline Hydrolysis (Prick) (Minor determinant) 0 Ampicillin ordered? Yes Ampicillin (Prick) 0 Penicillin and other antibiotics (ID) Histamine 0.1 mg/ml intradermal [id number]/ [id number] Diluent without preservative (ID) 0 Benzylpencilloyl (PrePen) (ID) (Major determinant) 0 New Mix Penicillin G (ID) 0 Alkaline Hydrolysis (ID) (Minor determinant) 0 Ampicillin (ID) 0 BRATION TECHNICIAN documented in this encounter Plan of Treatment Upcoming Encounters Date Type Department Care Team (Latest Contact Info) Description 10/16/2024 7:30 AM CALIBRATION TECHNICIAN Virtual Visit Department of Cardiovascular Medicine in [place], [place] [address] [place] [phone] Tre Dumas M.D. [address] [place] [phone] 10/19/2024 10:15 AM CALIBRATION TECHNICIAN Clinical Communication Virtual Review in [place], [place] 200 [place] [phone] 10/20/2024 11:00 AM CALIBRATION TECHNICIAN Comprehensive Visit Division of Plastic Surgery in [place], [place] [address] [place] [phone] Foster Mcclendon B.M., B.Ch., Ph.D. [address] [place] [phone] 10/20/2024 12:00 PM CALIBRATION TECHNICIAN Office Visit Division of Breast and Melanoma Surgical Oncology in [place], [place] [address] [place] [phone] Brie Durant M.D. [address] [place] [phone] 10/30/2024 7:30 AM CDT Appointment Department of Radiology, [facility], in [place], [place] [address] [place] [phone] Brie Durant M.D. [address] [place] [phone] Discharge Disposition: Home or Self Care 10/30/2024 8:20 AM CDT Hospital Encounter [facility] 01 4 AM ADMIT [address] [place] [phone] Brie Durant M.D. [address] [place] [phone] 10/30/2024 8:20 AM CDT - 10/30/2024 1:24 PM CDT Surgery [facility] MAIN OR [address] [place] [phone] Brie Durant M.D. [address] [place] [phone] BILATERAL SKIN SPARING MASTECTOMY 11/08/2024 10:00 AM CDT Comprehensive Visit Department of Oncology in [place], [place] [address] [place] [phone] Megnha Soto M.B., B.Ch. [address] [place] [phone] 11/08/2024 1:00 PM CDT Office Visit Division of Breast and Melanoma Surgical Oncology in [place], [place] [address] [place] [phone] Geno Stevenson, KRISSY, C.N.P., D.N.P. [address] [place] [phone] 11/13/2024 8:00 AM CDT Office Visit Division of Plastic Surgery in [place], [place] 200 [place] [phone] Yoon Hamilton, KRISSY, C.N.P., D.N.P. 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
--- OUTSIDE RECORDS SUMMARY | 2024-10-13 22:11 | XMS_ITS | Encounter Summary ---
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 [address] [place] [address] Phone: tel: fax: [facility] Referral ID Status Reason Start Date Expiration Date Visits Re quested Visits Authorized [id number] Closed 09/15/2024 12/12/2025 2 2 INATION SUPERVISOR * MRI/CAT/PET Scan (Routine) - Closed Specialty Diagnoses / Procedures Referred By Safia garcia Referred To Contact Radiology Diagnoses Abnormal Magnetic Resonance Imaging Breast 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) Procedures MR Breast Biopsy Right with Guidance Bina Vasques M.D. [address] [place] [address] Phone: tel: fax: [facility] Referral ID Status Reason Start Date Expiration Date Visits Re quested Visits Authorized [id number] Closed 09/15/2024 12/12/2025 1 1 INATION SUPERVISOR Encounter Details Date Type Department Care Team (Late st Contact Info) Description 09/11/2024 Orders Only Division of General Internal Medicine in [place], [place] [address] [place] [address] Bina Vasques M.D. [address] [place] [address] Abnormal Magnetic Resonance Imaging Breast (Primary Dx); 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) Social History Tobacco Use Types Packs/Day Years Used Date Smoking Tobacco: Never Passive Smoke Exposure: Past Smokeless Tobacco: Never Alcohol Use Standard Drinks/Week Comments Not Currently 0 (1 standard drink = 0.6 oz pur e alcohol) [facility] Utilities Answer Date Recorded In the past 12 months has [employer], oil, or water [email or web address] threatened to shut off services in your [...] your living situation today? I have a [facility] place to live 07/25/2024 Comments No Sex and Gender Information Value Date Recorded Sex Assigned at Female 07/25/2024 9:49 AM EXAMINATION SUPERVISOR Legal Sex Female 6:01 PM EXAMINATION SUPERVISOR Gender Identity Female 07/25/2024 9:49 AM EXAMINATION SUPERVISOR Sexual Orientation Straight 07/25/2024 9: 49 AM EXAMINATION SUPERVISOR documented as of this encounter Plan of Treatment Upcoming Encounters Date Type Department Care Team (Latest Contact Info) Description 10/16/2024 7:30 AM EXAMINATION SUPERVISOR Virtual Visit Department of Cardiovascular Medicine in [place], [place] [address] [place] [phone] Tre Dumas M.D. [address] [place] [phone] 10/19/2024 10:15 AM EXAMINATION SUPERVISOR Clinical Communication Virtual Review in [place], [place] [address] [place] [address] 10/20/2024 11:00 AM EXAMINATION SUPERVISOR Comprehensive Visit Division of Plastic Surgery in [address] [phone] Foster Mcclendon B.M., B.Ch., Ph.D. [address] [place] [phone] 10/20/2024 12:00 PM EXAMINATION SUPERVISOR Office Visit Division of Breast and Melanoma Surgical Oncology in [place], [place] [address] [place] [phone] Brie Durant M.D. [address] [place] [phone] 10/30/2024 7:30 AM CDT Appointment Department of Radiology, [facility], in [place], [place] [address] [place] [phone] Brie Durant M.D. [address] [place] [phone] Discharge Disposition: Home or Self Care 10/30/2024 8:20 AM CDT Hospital Encounter [facility] 01 4 AM ADMIT [address] [place] [address] Brie Durant M.D. [address] [place] [phone] 10/30/2024 8:20 AM CDT - 10/30/2024 1:24 PM CDT Surgery [facility] MAIN OR [address] [place] [address] Brie Durant M.D. [address] [place] [phone] BILATERAL SKIN SPARING MASTECTOMY 11/08/2024 10:00 AM CDT Comprehensive Visit Department of Oncology in [place], [place] [address] [place] [phone] Meghna Soto M.B., B.Ch. [address] [place] [phone] 11/08/2024 1:00 PM CDT Office Visit Division of Breast and Melanoma Surgical Oncology in [place], [place] [address] [place] [phone] Geno Stevenson APRN, C.N.P., D.N.P. [address] [place] [phone] 11/13/2024 8:00 AM CDT Office Visit Division of Plastic Surgery in [place], [place] [address] [place] [phone] Yoon Hamilton APRN, C.N.P., D.N.P. 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 on 09/19/2024 1:37 PM EXAMINATION SUPERVISOR ADDENDUM: AMENDMENT TO ADD PATHOLOGY AND CONCORDANCE RESULTS. PLEASE SEE SEPARATE PATHOLOGY REPORT FOR COMPLETE INFORMATION. 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 CATEGORY: Malignant RAD-PATH CONCORDANCE: Yes. ACR COMPLICATIONS: None. RECOMMENDATION: Surgical Consult Multidisciplinary management recommended for bilateral breast cancer. ASSESSMENT: 10: Pathology Malignant. Impressions 09/15/2024 12:45 PM EXAMINATION SUPERVISOR Successful image-guided needle biopsy. When final pathology results are available a revised report will be issued which will include radiologic/pathologic concordance and recommendations. Please be aware that in discordant cases, surgical consultation may be recommended even with a benign pathology result. RECOMMENDATION: Waiting for Pathology ASSESSMENT: 7: Waiting for Pathology. EP Narrative 09/15/2024 12:45 PM EXAMINATION SUPERVISOR EXAM: MR BREAST BIOPSY LEFT WITH GUIDANCE INDICATION: Biopsy of left breast nonmass enhancement. LESION/LOCATION: 6:00 position 6 cm posterior to the nipple. The patient underwent single site biopsy. LESION SIZE (mm): 5 x 5 x 7 mm MEASUREMENT MODALITY: MRI IMAGING PRESENTATION: Non Mass Enhancement MODE OF DETECTION: MRI TECHNIQUE: MRI guided needle biopsy. Local anesthesia, 1% lidocaine. BIOPSY DEVICE: 9g vacuum-assisted needle. NUMBER OF PASSES: 6 SPECIMEN DIGITAL IMAGING: None. MARKING CLIP: Cork biopsy clip POST-PROCEDURE DIGITAL IMAGING: Please see associated mammogram report. CALCIFICATIONS REMOVED: N/A COMPLICATIONS: None. CONSENT: Patient seen, evaluated, and history reviewed. Discussed risks, benefits, alternatives for procedure, and obtained informed consent. Patient understands information and questions answered. Immediately prior to starting the procedure, in the presence of the assisting personnel, procedural pause was conducted to verify correct patient identity and verification of procedure to be performed, and as applicable, correct side and site, correct patient position, availability of implants, special equipment, or special requirements, and all image and specimen identification data. The roles and responsibilities of care team members, residents, and fellows were discussed. The medication list was reviewed and there are no changes to current medications. PATIENT EDUCATION: Provided by a care customer care team coach. Ready to learn, no apparent learning barriers were identified. Post-procedure care explained; patient expressed understanding of the content. Procedure Note Kj Wong M.D. - 09/15/2024 EXAM: MR BREAST BIOPSY LEFT WITH GUIDANCE INDICATION: Biopsy of left breast nonmass enhancement. LESION/LOCATION: 6:00 position 6 cm posterior to the nipple. The patient underwent single site biopsy. LESION SIZE (mm): 5 x 5 x 7 mm MEASUREMENT MODALITY: MRI IMAGING PRESENTATION: Non Mass Enhancement MODE OF DETECTION: MRI TECHNIQUE: MRI guided needle biopsy. Local anesthesia, 1% lidocaine. BIOPSY DEVICE: 9g vacuum-assisted needle. NUMBER OF PASSES: 6 SPECIMEN DIGITAL IMAGING: None. MARKING CLIP: Cork biopsy clip POST-PROCEDURE DIGITAL IMAGING: Please see associated mammogram report. CALCIFICATIONS REMOVED: N/A COMPLICATIONS: None. CONSENT: Patient seen, evaluated, and history reviewed. Discussed risks,benefits, alternatives for procedure, and obtained informed consent.Patient understands information and questions answered. Immediately priorto starting the procedure, in the presence of the assisting personnel, procedural pause was conducted toverify correct patient identity and verification of procedure to beperformed, and as applicable, correct side and site, correct patientposition, availability of implants, special equipment, or special requirements, and all image and specimenidentification data. The roles and responsibilities of care team members,residents, and fellows were discussed. The medication list was reviewedand there are no changes to current medications. PATIENT EDUCATION: Provided by a care customer care team coach. Ready to learn, noapparent learning barriers were identified. Post-procedure care explained;patient expressed understanding of the content. IMPRESSION: Successful image-guided needle biopsy. When final pathology results areavailable a revised report will be issued which will includeradiologic/pathologic concordance and recommendations. Please be awarethat in discordant cases, surgical consultation may be recommended even with a benign pathology result. RECOMMENDATION: Waiting for Pathology ASSESSMENT: 7: Waiting for Pathology. EP us Bina Vasques M.D. IM MRI PROCEDURES Edited R esult - Final * MR Breast Biopsy Right with Guidance (09/15/2024 12:27 PM EXAMINATION SUPERVISOR) Anatomical Region Laterality Modality Breast, Breast Imaging RST L OS, Breast Imaging ARZ LOS, Breast Imaging FLA LOS Right Magnetic Resonance Addenda Addendum by Kj Wong M.D. on 09/18/2024 2:22 PM EXAMINATION SUPERVISOR ADDENDUM: AMENDMENT TO ADD PATHOLOGY AND CONCORDANCE RESULTS. PLEASE SEE SEPARATE PATHOLOGY REPORT FOR COMPLETE INFORMATION. PATHOLOGY: Invasive lobular carcinoma, preliminary [place] grade II (of III), measuring 4 mm in greatest linear extent. Lobular carcinoma in situ (LCIS), classic and focal pleomorphic types. CATEGORY: Malignant RAD-PATH CONCORDANCE: Yes. ACR COMPLICATIONS: None. RECOMMENDATION: Surgical Consult ASSESSMENT: 10: Pathology Malignant. Impressions 09/15/2024 12:45 PM EXAMINATION SUPERVISOR Successful image-guided needle biopsy. When final pathology results are available a revised report will be issued which will include radiologic/pathologic concordance and recommendations. Please be aware that in discordant cases, surgical consultation may be recommended even with a benign pathology result. RECOMMENDATION: Waiting for Pathology ASSESSMENT: 7: Waiting for Pathology. EP Narrative 09/15/2024 12:45 PM EXAMINATION SUPERVISOR EXAM: MR BREAST BIOPSY RIGHT WITH GUIDANCE INDICATION: Biopsy of right breast mass with known right breast malignancy. LESION/LOCATION: 8:00 right breast 3.5 cm posterior to the nipple The patient underwent 2 site biopsy. This is site 1 of 2. Please see separate report for additional information. LESION SIZE (mm): 10 x 8 x 4 mm MEASUREMENT MODALITY: MRI IMAGING PRESENTATION: Enhancing Mass MODE OF DETECTION: MRI TECHNIQUE: MRI guided needle biopsy. Local anesthesia, 1% lidocaine. BIOPSY DEVICE: 9g vacuum-assisted petite needle. NUMBER OF PASSES: 12 SPECIMEN DIGITAL IMAGING: None. MARKING CLIP: Open coil clip POST-PROCEDURE DIGITAL IMAGING: Please see associated mammogram report. CALCIFICATIONS REMOVED: N/A COMPLICATIONS: None. CONSENT: Patient seen, evaluated, and history reviewed. Discussed risks, benefits, alternatives for procedure, and obtained informed consent. Patient understands information and questions answered. Immediately prior to starting the procedure, in the presence of the assisting personnel, procedural pause was conducted to verify correct patient identity and verification of procedure to be performed, and as applicable, correct side and site, correct patient position, availability of implants, special equipment, or special requirements, and all image and specimen identification data. The roles and responsibilities of care team members, residents, and fellows were discussed. The medication list was reviewed and there are no changes to current medications. PATIENT EDUCATION: Provided by a care customer care team coach. Ready to learn, no apparent learning barriers were identified. Post-procedure care explained; patient expressed understanding of the content. Procedure Note Kj Wong M.D. - 09/15/2024 EXAM: MR BREAST BIOPSY RIGHT WITH GUIDANCE INDICATION: Biopsy of right breast mass with known right breastmalignancy. LESION/LOCATION: 8:00 right breast 3.5 cm posterior to the nipple The patient underwent 2 site biopsy. This is site 1 of 2. Please seeseparate report for additional information. LESION SIZE (mm): 10 x 8 x 4 mm MEASUREMENT MODALITY: MRI IMAGING PRESENTATION: Enhancing Mass MODE OF DETECTION: MRI TECHNIQUE: MRI guided needle biopsy. Local anesthesia, 1% lidocaine. BIOPSY DEVICE: 9g vacuum-assisted petite needle. NUMBER OF PASSES: 12 SPECIMEN DIGITAL IMAGING: None. MARKING CLIP: Open coil clip POST-PROCEDURE DIGITAL IMAGING: Please see associated mammogram report. CALCIFICATIONS REMOVED: N/A COMPLICATIONS: None. CONSENT: Patient seen, evaluated, and history reviewed. Discussed risks,benefits, alternatives for procedure, and obtained informed consent.Patient understands information and questions answered. Immediately priorto starting the procedure, in the presence of the assisting personnel, procedural pause was conducted toverify correct patient identity and verification of procedure to beperformed, and as applicable, correct side and site, correct patientposition, availability of implants, special equipment, or special requirements, and all image and specimenidentification data. The roles and responsibilities of care team members,residents, and fellows were discussed. The medication list was reviewedand there are no changes to current medications. PATIENT EDUCATION: Provided by a care customer care team coach. Ready to learn, noapparent learning barriers were identified. Post-procedure care explained;patient expressed understanding of the content. IMPRESSION: Successful image-guided needle biopsy. When final pathology results areavailable a revised report will be issued which will includeradiologic/pathologic concordance and recommendations. Please be awarethat in discordant cases, surgical consultation may be recommended even with a benign pathology result. RECOMMENDATION: Waiting for Pathology ASSESSMENT: 7: Waiting for Pathology. EP us Bina Vasques M.D. IMG MRI PROCEDURES Edited R esult - Final documented in this encounter Visit Diagnoses Diagnosis Abnormal Magnetic Resonance Imaging Breast- Primary 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) Abnormal Magnetic Resonance Imaging Breast 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) Abnormal Magnetic Resonance Imaging Breast 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) 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)- Primary 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) documented in this encounter Care Teams System Dispatcher Relationship Specialty Start Date End Date Elsewhere, Pcp PCP - General Internal Medicine 07/25/24 documented as of this encounter
--- OUTSIDE RECORDS SUMMARY | 2024-10-13 22:11 | XMS_ITS | Encounter Summary ---
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 [address] [place] [address] Phone: tel: fax: Health System Referral ID Status Reason Start Date Expiration Date Visits Re quested Visits Authorized [id number] Closed 09/01/2024 03/03/2026 1 1 Encounter Details Date Type Department Care Team (Latest Contact Info) Description 09/07/2024 1:00 PM POWER TOOL REPAIR TECHNICIAN Comprehensive Visit Breast Diagnostic Clinic in [place], [place] [address] [place] [phone] Roxy Mayo, Ph.D., L.P. [address] [place] [phone] 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); Stress Social History Tobacco Use Types Packs/Day Years Used Date Smoking Tobacco: Never Passive Smoke Exposure: Past Smokeless Tobacco: Never Alcohol Use Standard Drinks/Week Comments Not Currently 0 (1 standard drink = 0.6 oz pur e alcohol) [facility] Utilities Answer Date Recorded In the past [...] your living situation today? [facility] 07/25/2024 Comments No Sex and Gender Information Value Date Recorded Sex Assigned at Female 07/25/2024 9:49 AM POWER TOOL REPAIR TECHNICIAN Legal Sex Female 6:01 PM POWER TOOL REPAIR TECHNICIAN Gender Identity Female 07/25/2024 9:49 AM POWER TOOL REPAIR TECHNICIAN Sexual Orientation Straight 07/25/2024 9: 49 AM POWER TOOL REPAIR TECHNICIAN documented as of this encounter Consult Notes * Roxy Mayo, Ph.D., L.P. - 09/07/2024 1:00 PM CST BREAST CLINIC BEHAVIORAL HEALTH EVALUATION AND TREATMENT PLAN PROCEDURES: 30-minute behavioral health provider evaluation and treatment Informed Consent: Information was reviewed with the patient regarding the role and services of the behavioral health provider, documentation procedures, and limits to confidentiality; consent obtained. Risks, benefits, and potential complications of treatment were identified and discussed. SUBJECTIVE Mrs. Maryam Ayers is a 54 y/o woman from [place], [place] who was diagnosed with breast cancer in July of 2024. She is currently in the process of planning her breast cancer treatment with her medical providers. HISTORY OF PRESENT ILLNESS Current Mood (Duration/Frequency/Intensity): With regards to her cancer, Ms. Ayers stated hasn't been great, I'm not going to lie. She reported her cancer experience is complicated by the loss of her three years ago to cancer (glioblastoma). She reported returning ot [facility] and being in spaces similar to where her was treated increases her stress (It's hard to walk in here). She noted guilt that her children, especially her youngest daughter, have to experience their only surviving parent be diagnosed with cancer. She described at times feeling emotionally numb when thinking about her cancer, but acknowledged also experiencing worry and sadness. Ms. 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 She also was preparing for heart surgery prior toher cancer diagnosis and noted she will still have to address this following breast cancer treatment. 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 Ayers noted she is . Her Johnie 3 years ago from cancer. She has three children: 14 y/o daughter who has been treated for anxiety and ASD; 22 y/o daughter, in graduate school for psychology in [place]; and a 25 y/o son who is a teacher in [place].. Ms. Ayers reported she has been in a romantic relationship with her partner, Rom, for the past year. She described him as extremely supportive and well liked by her family. Substances: Alcohol: None noted Tobacco: None noted Marijuana/Drugs: none noted OBJECTIVE Appearance/Behavior: Well groomed, in no apparent distress. Good eye contact. No abnormal movementsnoted. Consciousness/Orientation: Alert. Oriented to person, place, date, and time. Cognition/Memory: Demonstrates good recent and remote memory through conversation and history. Cooperative/Reliability: Cooperative, reliable informant. Mood/Affect: Euthymic mood with full range affect. Speech/Language: Regular rate, rhythm, volume, and tone. Thought form: Linear, goal-directed, and associations are clear and connected. Thought content: No delusions described or elicited, no other abnormalities of thought content. Perception: No hallucinations, illusions, or other perceptual disturbances. Attention/Concentration: No apparent abnormalities in attention or concentration. Knowledge: Knowledge base within normal limits. Abstraction: Abstraction abilities within normal limits. Judgment: Intact. Insight/Motivation: Good insight/motivation. RISK ASSESSMENT Patient did not endorse suicidal or homicidal ideation, intent, plan, and behaviors Risk factors: sxs of anxiety; complex medical conditions Protective factors: absence of suicidal/homicidal ideation, intent, plan, or behaviors; absence of current substance use problems; connected to strong support system; responsibility for family; future oriented/hopeful for future; coping and problem solving skills Based on risk and protective factors, the patient is considered to be at low acute and chronic riskfor committing suicidal acts/self-harm at this time. Low acute risk: no current suicidal intent, no specific and current suicidal plan, no preparatory behavior, and high confidence in the patient's ability to independently maintain safety. Low chronic risk: absence of self-directed violence, absence of chronic suicidal ideation, absence of impulsivity or risky behaviors, good psychosocial functioning. ADDITIONAL ASSESSMENT PROMIS 29 Physical: 45.5. This suggests physical symptoms in the mild range (40-50). Anxiety: 75.4. This suggests anxiety symptoms in the severe range (>74). Depression: 57.3. This suggests depression symptoms in the mild range (55-64). Fatigue: 57. This suggests fatigue symptoms in the mild range (50-59). Sleep Disturbance: 57.9. This suggests sleep disturbance symptoms in the moderate range (55-60). Social Roles and Responsibilities: 46.2. This suggests social role and responsibility symptoms in the normal range (>45). Pain Interference: 53.9. This suggests pain interference symptoms in the mild range (50-59). 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 She noted her cancer experience is complicated by the loss of her to cancer 3 years ago. Mrs. Ayers noted increased distress related to the impact her cancer has on her three children. She expressed interest in scheduling a return visit with tech writer for additional assessment of mood and psychosocial support as she navigates her cancer journey. She was amenable to meeting with tech writer and was interested in scheduling a follow-up visit when she is at [facility] for her medical appointments. Above recommendations discussed collaboratively with a focus on the goals of Ms. Ayers. Contact information is available through the portal or by phone at should there be any further questions or concerns, or dissatisfaction with results of above recommendations. I answered the patient's questions to the best of my ability within the scope of clinical health psychology practice. R TOOL REPAIR TECHNICIAN documented in this encounter Plan of Treatment Upcoming Encounters Date Type Department Care Team (Latest Contact Info) Description 10/16/2024 7:30 AM POWER TOOL REPAIR TECHNICIAN Virtual Visit Department of Cardiovascular Medicine in [place], [place] [address] [place] [phone] Tre Dumas M.D. [address] [place] [phone] 10/19/2024 10:15 AM POWER TOOL REPAIR TECHNICIAN Clinical Communication Virtual Review in [place], [place] [address] [place] [phone] 10/20/2024 11:00 AM POWER TOOL REPAIR TECHNICIAN Comprehensive Visit Division of Plastic Surgery in [place], [place] [address] [place] [phone] Foster Mcclendon B.M., B.Ch., Ph.D. [address] [place] [phone] 10/20/2024 12:00 PM POWER TOOL REPAIR TECHNICIAN Office Visit Division of Breast and Melanoma Surgical Oncology in [place], [place] [address] [place] [phone] Brie Durant M.D. [address] [place] [phone] 10/30/2024 7:30 AM CDT Appointment Department of Radiology, [facility], in [place], [place] [address] [place] [phone] Brie Durant M.D. [address] [place] [phone] Discharge Disposition: Home or Self Care 10/30/2024 8:20 AM CDT Hospital Encounter RST RO 01 4 AM ADMIT [address] [place] [phone] Brie Durant M.D. [address] [place] [phone] 10/30/2024 8:20 AM CDT - 10/30/2024 1:24 PM CDT Surgery [facility] [address] [place] [phone] Brie Durant M.D. [address] [place] [phone] BILATERAL SKIN SPARING MASTECTOMY 11/08/2024 10:00 AM CDT Comprehensive Visit Department of Oncology in [place], [place] [address] [place] [phone] Meghna Soto M.B., B.Ch. [address] [place] [phone] 11/08/2024 1:00 PM CDT Office Visit Division of Breast and Melanoma Surgical Oncology in [place], [place] [address] [place] [phone] Geno Stevenson APRN, C.N.P., D.N.P. [address] [place] [phone] 11/13/2024 8:00 AM CDT Office Visit Division of Plastic Surgery in [place], [place] [address] [place] [phone] Yoon Hamilton APRN, C.N.P., D.N.P. [address] [place] [phone] Scheduled Procedures Name Priority Associated Diagnoses Date/Ti [...] 8:20 AM CDT RECONSTRUCTION BREAST WITH TISSUE DIRECTOR OF MIDWIFERY/STAFF MIDWIFE 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) 10/30/2024 8:20 AM CDT documented as of this encounter Visit Diagnoses Diagnosis 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) Stress 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) documented in this encounter Care Teams Motor Vehicle Field Representative Relationship Specialty Start Date End Date Elsewhere, Pcp PCP - General Internal Medicine 07/25/24 documented as of this encounter
--- OUTSIDE RECORDS SUMMARY | 2024-10-13 22:11 | XMS_ITS | Encounter Summary ---
Author Organization [facility] Address [address] [place] [address] Care Team Providers Care Radio Despatcher Name Role Phone Elsewhere, Pcp Primary Care Provider Unavailabl e Reason for Visit * Outpatient (Routine) - Closed Specialty Diagnoses / Procedures Referred By Safia garcia Referred To Contact Allergy and Immunology Diagnoses Allergy Penicillin Antibiotic Personal History Peggy Silvestre M.D., Ph.D. [address] [place] [phone] Phone: tel: fax: [facility] Referral ID Status Reason Start Date Expiration Date Visits Re quested Visits Authorized [id number] Closed 08/23/2024 02/22/2026 1 1 Encounter Details Date Type Department Care Team (Latest Contact Info) Description 09/07/2024 3:30 PM JEWELRY STORE MANAGER Comprehensive Visit Division of Allergic Diseases in [place], [place] [address] [place] [phone] Janice Menard P.A.-C., M.S. [address] [place] [phone] Allergy Penicillin Antibiotic Personal History (Primary Dx) Social History Tobacco Use Types Packs/Day Years Used Date Smoking Tobacco: Never Passive Smoke Exposure: Past Smokeless Tobacco: Never Alcohol Use Standard Drinks/Week Comments Not Currently 0 (1 standard drink = 0.6 oz pur e alcohol) [facility] Utilities Answer Date Recorded In the past 12 months has th e [employer], gas, oil, or water [employer] threatened to shut off services in your [...] your living situation today? I have a [facility] place to live 07/25/2024 Comments No Sex and Gender Information Value Date Recorded Sex Assigned at Female 07/25/2024 9:49 AM JEWELRY STORE MANAGER Legal Sex Female 6:01 PM JEWELRY STORE MANAGER Gender Identity Female 07/25/2024 9:49 AM JEWELRY STORE MANAGER Sexual Orientation Straight 07/25/2024 9: 49 AM JEWELRY STORE MANAGER documented as of this encounter Consult Notes * Janice Menard P.A.-C., M.S. - 09/07/2024 3:30 PM CST Chief complaint: Personal history of Augmentin allergy Supervised by: Dr. Ollie Jacobson ([id number]) Referring provider: Peggy Silvestre M.D., Ph.D. [address] [place] [phone] SUBJECTIVE History of Present Illness: #1 Personal history of Augmentin allergy Maryam Ayers is a pleasant 54 y.o. female, presenting today for evaluation and management of a past history of a reaction to Augmentin. She reports that around 15 years ago she was given Augmentin for treatment of strep pharyngitis. She recalls developing hives. The next time had strep pharyngitis, she did use Augmentin again, and again developed hives. With neither reaction was there any associated peeling skin, blistering skin, mucosal sores, fever, and/or joint pain/swelling. She may have treated symptoms with cetirizine. she has avoided use since that time. On review of her electronic medical record, antibiotics it appears she has been prescribed without documentation of adverse eventinclude cephalexin, azithromycin, levofloxacin. ROS: See history of present illness Allergies Allergen Reactions Morphine Itching Augmentin [Amoxicillin-Pot Clavulanate] Hives (Reselect Reaction) Penicillin allergy testing performed on 09/07/24 was negative. Avoid amoxicillin, ampicillin, and clavulanic acid. May use other penicillins and cephalosporins. Fd And C Red No.40 Nausea Only OBJECTIVE Physical examination: General: 54 y.o. female who appears her stated age. Mental: Alert and oriented in all spheres; in no acute distress Skin: Negative skin test to penicillin and ampicillin Penicillin and other antibiotic skin test Flowsheet Row Clinical Support from 09/07/2024 in Division of Allergic Diseases in [place], [place] Penicillin and other antibiotics (Prick) Histamine 6mg/ml prick [id number]/ 10x8 flare Diluent without preservative (Prick) 0 Benzylpencilloyl (PrePen) (Major determinant) 0 New Mix Penicillin G (Prick) 0 Alkaline Hydrolysis (Prick) (Minor determinant) 0 Ampicillin ordered? Yes Ampicillin (Prick) 0 Penicillin and other antibiotics (ID) Histamine 0.1 mg/ml intradermal [id number]/ [id number] Diluent without preservative (ID) 0 Benzylpencilloyl (PrePen) (ID) (Major determinant) 0 New Mix Penicillin G (ID) 0 Alkaline Hydrolysis (ID) (Minor determinant) 0 Ampicillin (ID) 0 ASSESSMENT / PLAN Impression/Report/Plan #1 Personal history of Augmentin allergy Penicillin skin test interpretations: Maryam Ayers 's penicillin skin test to the major and minor determinants was negative. The skin test to ampicillin was negative, and it was reviewed that the negative predictive value of the ampicillin skin test is not well established. With negative penicillin and ampicillin allergy testing, therisk for developing an IgE mediated reaction to penicillins other than the aminopenicillins is consi dered to be similar to that of the general population. It is felt that there would still be some increased risk of a reaction to the aminopenicillins based upon history and testing limitations. It isnoted that there is always a small risk for a drug reaction and that our penicillin and ampicillin skin tests do not predict for non-IgE mediated adverse reactions to penicillins. Discussions: Results of penicillin and ampicillin allergy testing were reviewed in detail today with Maryam Maxx Coonsch. We discussed the interpretation and limitations of the skin testing. Additionally, we reviewed that Augmentin consists of amoxicillin and clavulanic acid. It is noted that we do not have testing for Augmentin, specifically, or for its component, clavulanic acid. We reviewed that penicillin and cephalosporin antibiotics have a pharmacologic/structural relationship. Maryam Ayers's medical record and personally provided history does not indicate a history of an adverse reaction to cephalosporin antibiotics. We reviewed that there may be cross-reactivity between penicillin and cephalosporin antibiotics that could place an individual at increased risk for having an allergic reaction to one group if an allergy to the other exists. We reviewed that with a history of a reaction to Augmentin, Maryam Ayers would have been considered at increased risk for areaction to some or all cephalosporins. With a negative penicillin and ampicillin allergy skin testpanel, it is felt that use of penicillins other than amoxicillin and ampicillin would be reasonablewith an estimated risk of having an IgE mediated type 1 hypersensitivity reaction being around 3-5%. Maryam Ayers's specific clinical situation was reviewed. We discussed the implications of a negative penicillin skin test regarding current and future use of both penicillin and cephalosporin antibiotics. We reviewed that there is a clinical indication for bacterial prophylaxis with most surgicalprocedures. We reviewed the role that having a negative penicillin skin test plays in preparing an individual for an upcoming surgery. We discussed the implications of a negative penicillin skin testupon future use of cephalosporins and how this plays a role in decreasing surgical infections. In the following study, (Bruno STEWART?? et al. Clin Infect Dis(3):329-336), cefazolin use demonstrated fewer prosthetic joint infections when compared to use of a non-cefazolin antibiotic in perioperative antibiotic regimens. It is noted that with Maryam Ayers's clinical situation, including a negative penicillin and ampicillin allergy test, her risk of having a IgE mediated hypersensitivity reaction with use of cefazolin during surgery would be considered similar to that of the average population with the risk around 3-5%. If she is not comfortable receiving a cephalosporin antibiotic, then alternative antibiotics (vancomycin, clindamycin, etc) could be utilized, though it was discussed thatuse of alternative antibiotics in patients with a history penicillin allergy has been associated with more total hospital days and more C difficile, MRSA, and VRE infections than expected compared with control subjects (Abi Austin?? et al. J Allergy Clin Immunol4;133(3):790-796). We discussed the role of an oral challenge to a penicillin antibiotic after negative penicillin allergy testing is demonstrated. We discussed the factors to consider in the decision to proceed with or defer an oral challenge. These would include consideration of the features of the previous reaction to penicillin, other known drug allergies, presence of co-morbidities such as asthma, time passed from the original reaction to penicillin, and the clinical need for penicillin currently and in the future. We, also, discussed the risks, benefits and alternatives to doing an oral challenge to a penicillin. After an extensive and robust discussion with all questions answered regarding future use of penicillins, future use of cephalosporins, and proceeding with or deferring an oral challenge to penicillin, Maryam Maxx Ayers agreed with the plan documented below. Recommendations: 1. Regarding the oral challenge to penicillins, the patient will differ undergoing a penicillin challenge and willing to take the small risk of anaphylaxis with a subsequent dose of penicillin or another derivative of a penicillin. 2. May use penicillins and cephalosporins. Avoid amoxicillin, ampicillin, and clavulanic acid. I discussed the recommendations and answered all the questions to the best of my ability, and Maryam Maxx Ayers expressed understanding and agreement with our plan. I personally spent a total of 20 minutes face to face,which does not include the time spent on the review of record, documentation and/or actual procedure, with Maryam Ayers in counseling and discussion and/or coordination of care as described above. Patient Education Ready to learn, no apparent learning barriers were identified; learning preferences include listening. Explained diagnosis and treatment plan; patient expressed understanding of the content. LRY STORE MANAGER documented in this encounter Plan of Treatment Upcoming Encounters Date Type Department Care Team (Latest Contact Info) Description 10/16/2024 7:30 AM JEWELRY STORE MANAGER Virtual Visit Department of Cardiovascular Medicine in [place], [place] [address] [place] [phone] Tre Dumas M.D. [address] [place] [phone] 10/19/2024 10:15 AM JEWELRY STORE MANAGER Clinical Communication Virtual Review in [place], [place] 200 [place] [phone] 10/20/2024 11:00 AM JEWELRY STORE MANAGER Comprehensive Visit Division of Plastic Surgery in [address] [phone] Foster Mcclendon B.M., B.Ch., Ph.D. [address] [place] [phone] 10/20/2024 12:00 PM JEWELRY STORE MANAGER Office Visit Division of Breast and Melanoma Surgical Oncology in [place], [place] [address] [place] [phone] Brie Durant M.D. [address] [place] [phone] 10/30/2024 7:30 AM CDT Appointment Department of Radiology, [facility], in [place], [place] [address] [place] [phone] Brie Durant M.D. [address] [place] [phone] Discharge Disposition: Home or Self Care 10/30/2024 8:20 AM CDT Hospital Encounter RST RO 01 4 AM ADMIT [address] [place] [phone] Brie Durant M.D. [address] [place] [phone] 10/30/2024 8:20 AM CDT - 10/30/2024 1:24 PM CDT Surgery RST RO MAIN OR [address] [place] [phone] Brie Durant M.D. [address] [place] [phone] BILATERAL SKIN SPARING MASTECTOMY 11/08/2024 10:00 AM CDT Comprehensive Visit Department of Oncology in [place], [place] [address] [place] [phone] Meghna Soto M.B., B.Ch. [address] [place] [phone] 11/08/2024 1:00 PM CDT Office Visit Division of Breast and Melanoma Surgical Oncology in [place], [place] [address] [place] [phone] Geon Stevenson APRN, C.N.P., D.N.P. [address] [place] [phone] 11/13/2024 8:00 AM CDT Office Visit Division of Plastic Surgery in [place], [place] [address] [place] [phone] Yoon Hamilton APRN, C.N.P., D.N.P. [address] [place] [phone] Scheduled Procedures Name Priority Associated Diagnoses Date/Ti [...] 8:20 AM CDT RECONSTRUCTION BREAST WITH TISSUE PETROLEUM PRODUCTION ENGINEER 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) 10/30/2024 8:20 AM CDT documented as of this encounter Visit Diagnoses Diagnosis Allergy Penicillin Antibiotic Personal History- Primary 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) documented in this encounter Care Teams Radio Despatcher Relationship Specialty Start Date End Date Elsewhere, Pcp PCP - General Internal Medicine 07/25/24 documented as of this encounter
--- OUTSIDE RECORDS SUMMARY | 2024-10-13 22:11 | XMS_ITS | Encounter Summary ---
Author Organization [facility] Address [address] [place] [id number] Care Team Providers Care Tube Fitter Name Role Phone Elsewhere, Pcp Primary Care Provider Unavailabl e Reason for Visit * Outpatient (Routine) - Authorized Specialty Diagnoses / Procedures Referred By Safia garcia Referred To Contact General Surgery Diagnoses 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) Peggy Silvestre M.D., Ph.D. [address] [place] [address] Phone: tel: fax: [facility] Referral ID Status Reason Start Date Expiration Date V isits Requested Visits Authorized [id number] Authorized 08/23/2024 02/22/2026 1 1 Encounter Details Date Type Department Care Team (Latest Contact Info) Description 09/08/2024 8:15 AM LOCOMOTIVE MECHANIC APPRENTICE Comprehensive Visit Division of Breast and Melanoma Surgical Oncology in [place], [place] [address] [place] [phone] Brie Durant M.D. [address] [place] [phone] 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) Social History Tobacco Use Types Packs/Day Years Used Date Smoking Tobacco: Never Passive Smoke Exposure: Past Smokeless Tobacco: Never Alcohol Use Standard Drinks/Week Comments Not Currently 0 (1 standard drink = 0.6 oz pur e alcohol) [facility] Utilities Answer Date Recorded In the [...] your living situation today? [facility] 07/25/2024 Comments No Sex and Gender Information Value Date Recorded Sex Assigned at Female 07/25/2024 9:49 AM LOCOMOTIVE MECHANIC APPRENTICE Legal Sex Female 6:01 PM LOCOMOTIVE MECHANIC APPRENTICE Gender Identity Female 07/25/2024 9:49 AM LOCOMOTIVE MECHANIC APPRENTICE Sexual Orientation Straight 07/25/2024 9: 49 AM LOCOMOTIVE MECHANIC APPRENTICE documented as of this encounter Consult Notes * Brie Durant M.D. - 09/08/2024 8:15 AM CST SUBJECTIVE REASON FOR CONSULT Right Breast Carcinoma Source of consultation: Dr. Vasques HISTORY OF PRESENT ILLNESS Maryam Ayers is a 54 y.o. female seen for surgical consultation regarding a newly diagnosed 0.9 cm, right breast, grade 2, invasive lobular cancer at 10:00, ER positive, VA positive, HER2 negative,Ki-67 10% at 10:00 with 2 abnormal right breast MRI areas and a left breast MRI abnormality. Genetics is pending and was drawn on 09/05/24. She has not had any prior breast abnormalities or procedures. She is currently wearing a Holter monitor to evaluate a PFO. Her symptoms were headaches. The initial presentation was a mammogram abnormality. She denies palpable mass, skin change and breast discharge. Site #1: Location The location is the right breast upper outer quadrant. 10 o'clock position. Distance from nipple 8 cm. Clip at this site: other (vision) Imaging Mammography demonstrated Mammography demonstrated: On 08/02/2024, 08/11/2024, and 09/06/2023, bilateral asymmetries. measuring 0.7 centimeters. Breast US demonstrated a mass (On 08/11/2024 and 09/06/2023) measuring 0.9 centimeters. MRI demonstrated enhancing mass (On 09/05/2023, right breast cancer measures 0.8 cm at 10:00 and a 1.5 cm lesion at 3:00, a 1 cm lesion at 8:00, and left enhancement at 6:00) measuring 0.8 (0.7 x 0.8x 0.7 cm) centimeters. Pathology Histology invasive lobular carcinoma and other (On 08/15/2024, ILC with classic LCIS) Grade: 2 ER: 91-100%+ VA: 91-100%+ HER-2: negative, 1+ Ki67%: 10 Axillary node imaging: right Right axillary US was normal. Right MRI evaluation of axillary nodes was normal. 09/06 left diagnostic Mammogram and bilateral breast US IMPRESSION: 1. Left breast asymmetry corresponding to overlapping fibroglandular tissue. 2. No ultrasound correlate for the 3 areas of suspicious enhancement noted on breast MRI. 3. No right axillary lymphadenopathy. I have reviewed the mammogram, ultrasound, MRI images and the reports and discussed them with the patient. I have reviewed the pathology report and discussed it with the patient. Past medical history: Hypertension, PFO, asthma, migraines Breast-Relevant Surgical History No breast surgical history. Breast-Relevant Family History No family history of breast, ovarian, colon, or pancreatic cancer. Ashkenazi Nondenominational descent: unknown Patient mutations for Maryam Ayers: results pending The following portions of the patient's history were reviewed: allergies, medical history, surgicalhistory, problem list, social history, current medications and family history ALLERGIES: Morphine, Augmentin [amoxicillin-pot clavulanate], and Fd and c red no.40 MEDICAL HISTORY: Medical History[1] SURGICAL HISTORY: No past surgical history on file. CURRENT MEDICATIONS: Current Medications[2] SOCIAL HISTORY: reports that she has never smoked. She has been exposed to tobacco smoke. She has never used smokeless tobacco. She reports that she does not currently use alcohol. She reports that she does not use drugs. FAMILY HISTORY: family history is not on file. Medications: Albuterol, aspirin 81 mg, vitamin-D Celexa, Ativan, melatonin OBJECTIVE PHYSICAL EXAM Physical Exam The patient is well appearing, in no acute distress. Her partner is accompanying her in the exam room. HEENT: Sclera non-icteric. SKIN: No suspicious lesions noted. Lymph Nodes: No cervical, supraclavicular, infraclavicular, or axillary lymphadenopathy bilaterally. Breast: The patient was examined sitting up and lying down. Both breasts are symmetric with no skinchanges or dimpling. Bilateral everted nipples with no discharge. The left breast has no palpable masses with particular attention paid to 6:00. The right breast has no palpable masses with a well-healed core biopsy site and no palpable masses at 10:00, 3:00 and 8:00. EXTREMITIES: No edema, normal gait. Laboratory: 07/19/24 BMP within normal limits, hemoglobin A1c 5.5% ASSESSMENT / PLAN Staging: right breast carcinoma, clinical stage [id number]. Ms. Ayers is a 54 yo presenting with a 0.9 cm, right breast, grade 2, invasive lobular cancer at 10:00, ER positive, VA positive, HER2 negative, Ki-67 10% at 10:00 with 2 abnormal right breast MRI areas and a left breast MRI abnormality. She is currently wearing a Holter monitor to evaluate a PFO until 09/13/2024. Genetics is pending. The biology and treatment of breast cancer was discussed with the patient. We discussed surgical treatment options including breast conservation surgery and mastectomy with and without reconstruction. We discussed total mastectomy, skin sparing mastectomy, nipple sparing mastectomy, and Goldilocks mastectomy. She may not be a good candidate for nipple sparing mastectomy given the amount of ptosis. We discussed that the long-term survival between lumpectomy followed by radiation is similar to mastectomy. We discussed the estimated local recurrence rates for the two approaches. We discussed that she is a good candidate for breast conserving therapy especially if genetics is negative. However I would recommend the MRI biopsies of the 2 right breast lesions and the left breast lesion if she would like to pursue the breast conserving approach. If the 3 MRI biopsies can be done soon and have favorable pathology, she would like lumpectomy. If they can not be done soon, she would like to havebilateral mastectomy with either skin sparing approach with tissue expanders or possibly Goldilocksmastectomy. We discussed staging the axillary lymph nodes with sentinel lymph node biopsy utilizing radioactivecolloid as the mapping agent. We discussed that the sentinel lymph nodes will be evaluated intraoperatively by the pathologist. We discussed the findings from the ACOSOG Z11 study showing equivalent local control and survival rates for women with T1 and T2 tumors with one to two positive sentinel lymph nodes undergoing lumpectomy and whole breast radiation between those undergoing completion axillary dissection and those where axillary dissection was not performed. The decision regarding the need for axillary dissection will be based on the intraoperative findings in terms of extent of disease in the breast and in the lymph nodes. Additionally, we discussed that the sentinel lymph nodes will also be evaluated by Pathology on subsequent permanent processing, and occasionally the results ofthe sentinel node biopsy may be negative intraoperatively but return as positive on additional staining on permanent pathology. In this event, further discussion would be needed regarding possibly returning to the operating room for axillary lymph node dissection. We discussed the role of medical oncology for making systemic treatment recommendations and possible Oncotype, anti-estrogen therapy, chemotherapy. We discussed the role of radiation oncology for making radiation recommendations. PATIENT EDUCATION Ms. Ayers appears ready to understand and learn from our discussion. No apparent learning barrierswere identified from our verbal interactions. Explained diagnosis and treatment plan; patient appears to understand the content of our discussion. All of her questions were answered. Plan: Continue Holter through 09/13/24. Right breast MRI biopsy x 2 and left MRI breast MRI biopsy if they can be scheduled soon. Follow up the gene test result. We have discussed that bridging anti-estrogen therapy can be considered after the MRI biopsies if needed until surgery. She will decide between right breast seed lumpectomy and bilateral mastectomy with reconstruction. Return to clinic for pre-op planning. Medical Oncology consult postoperatively to discuss systemic treatment recommendations. Radiation Oncology consult postoperatively. We discussed that she may contact us in the breast surgery office either via the portal or by phonewith any questions. ADMINISTRATIVE / BILLING The total time was 60 minutes, with 45 minutes spent in face to face counseling and coordinating care with the patient, as described above. [1] No past medical history on file. [2] Current Outpatient Medications: albuterol 90 mcg/actuation inhaler, Inhale 2 puffs 4 (four) times a day as needed., Disp: , Rfl: aspirin [address] tablet, Take 81 mg by mouth daily., Disp: , Rfl: cholecalciferol (Vitamin D3) 25 mcg (1,000 Unit) capsule, Take 1 capsule by mouth daily. (Patient taking differently: Take 1 capsule by mouth as needed.), Disp: , Rfl: citalopram (CeleXA) 10 mg tablet, Take 1 tablet by mouth at bedtime., Disp: , Rfl: LORazepam (Ativan) 1 mg tablet, Take 1 mg by mouth as needed. Prior to flying, Disp: , Rfl: melatonin 1 mg tablet, Take 1 tablet by mouth at bedtime. (Patient taking differently: Take 3 tablets by mouth at bedtime as needed.), Disp: , Rfl: No current facility-administered medications for this visit. MOTIVE MECHANIC APPRENTICE documented in this encounter Plan of Treatment Upcoming Encounters Date Type Department Care Team (Latest Contact Info) Description 10/16/2024 7:30 AM LOCOMOTIVE MECHANIC APPRENTICE Virtual Visit Department of Cardiovascular Medicine in [place], [place] [address] [place] [phone] Tre Dumas M.D. [address] [place] [phone] 10/19/2024 10:15 AM LOCOMOTIVE MECHANIC APPRENTICE Clinical Communication Virtual Review in [place], [place] [address] [place] [phone] 10/20/2024 11:00 AM LOCOMOTIVE MECHANIC APPRENTICE Comprehensive Visit Division of Plastic Surgery in [place], [place] [address] [place] [phone] Foster Mcclendon B.M., B.Ch., Ph.D. [address] [place] [phone] 10/20/2024 12:00 PM LOCOMOTIVE MECHANIC APPRENTICE Office Visit Division of Breast and Melanoma Surgical Oncology in [place], [place] [address] [place] [phone] Brie Durant M.D. [address] [place] [phone] 10/30/2024 7:30 AM CDT Appointment Department of Radiology, [facility], in [place], [place] [address] [place] [phone] Brie Durant M.D. [address] [place] [phone] Discharge Disposition: Home or Self Care 10/30/2024 8:20 AM CDT Hospital Encounter RST RO 01 4 AM ADMIT [address] [place] [phone] Brie Durant M.D. [address] [place] [phone] 10/30/2024 8:20 AM CDT - 10/30/2024 1:24 PM CDT Surgery [facility] RO MAIN OR [address] [place] [phone] Brie Durant M.D. [address] [place] [phone] BILATERAL SKIN SPARING MASTECTOMY 11/08/2024 10:00 AM CDT Comprehensive Visit Department of Oncology in [place], [place] [address] [place] [phone] Meghna Soto M.B., B.Ch. [address] [place] [phone] 11/08/2024 1:00 PM CDT Office Visit Division of Breast and Melanoma Surgical Oncology in [place], [place] [address] [place] [phone] Geno Stevenson, KRISSY, C.N.P., D.N.P. [address] [place] [phone] 11/13/2024 8:00 AM CDT Office Visit Division of Plastic Surgery in [place], [place] [address] [place] [phone] Yoon Hamilton APRN, C.N.P., D.N.P. [address] [place] [phone] Scheduled Procedures Name Priority Associated Diagnoses Date/Ti [...] 8:20 AM CDT RECONSTRUCTION BREAST WITH TISSUE DEMURRAGE CLERK 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) 10/30/2024 8:20 AM CDT documented as of this encounter Visit Diagnoses Diagnosis 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) 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) documented in this encounter Care Teams Tube Fitter Relationship Specialty Start Date End Date Elsewhere, Pcp PCP - General Internal Medicine 07/25/24 documented as of this encounter
--- OUTSIDE RECORDS SUMMARY | 2024-10-13 22:11 | XMS_ITS | Encounter Summary ---
Author Organization [facility] Address [address] [place] [address] Care Team Providers Care Loan Clerk Name Role Phone Elsewhere, Pcp Primary Care Provider Unavailabl e Reason for Referral * Outpatient (Routine) - Closed Specialty Diagnoses / Procedures Referred By Safia garcia Referred To Contact Breast Clinic Diagnoses 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) Anxiety Bina Vasques M.D. [address] [place] [address] Phone: tel: fax: [facility] Referral ID Status Reason Start Date Expiration Date Visits Re quested Visits Authorized [id number] Closed 09/01/2024 03/03/2026 1 1 MANAGER Reason for Visit * Appointment Request (Routine) - Closed Specialty Diagnoses / Procedures Referred By Safia garcia Referred To Contact Breast Clinic Diagnoses Malignant Neoplasm Of Breast Female Right (HCC) Shanelle Renee M.D. [address] [place] [phone] Phone: tel: fax: Referral ID Status Reason Start Date Expiration Date Visits Re quested Visits Authorized [id number] Closed 08/18/2024 08/18/2025 1 1 Encounter Details Date Type Department Care Team (Latest Contact Info) Description 09/01/2024 8:30 AM SEO MANAGER Comprehensive Visit Breast Diagnostic Clinic in [place], [place] [address] [place] [address] Bina Vasques M.D. [address] [place] [address] 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) (Primary Dx); Anxiety; Patent Foramen Ovale (HCC) Social History Tobacco Use Types Packs/Day Years Used Date Smoking Tobacco: Never Passive Smoke Exposure: Past Smokeless Tobacco: Never Tobacco Cessation:Counseling Given: Not Answered Alcohol Use Standard Drinks/Week Comments Not Currently 0 (1 standard drink = 0.6 oz pur e alcohol) [facility] Utilities Answer Date Recorded In the past 12 months has th e electric, gas, oil, or water [employer] threatened to shut off services in your [...] Sex Assigned at Female 07/25/2024 9:49 AM SEO MANAGER Legal Sex Female 6:01 PM SEO MANAGER Gender Identity Female 07/25/2024 9:49 AM SEO MANAGER Sexual Orientation Straight 07/25/2024 9: 49 AM SEO MANAGER documented as of this encounter Last Filed Vital Signs Vital Sign Reading Time Taken Comments Blood Pressure 133/81 09/01/2024 8:05 AM SEO MANAGER Pulse 72 09/01/2024 8:05 AM SEO MANAGER Temperature - - Respiratory Rate - - Oxygen Saturation - - Inhaled Oxygen Concentration - - Weight 81.8 kg (180 lb 5.4 oz) 09/01/2024 8:05 A M SEO MANAGER Height 165.6 cm (5' 5.2) 09/01/2024 8:05 AM SEO MANAGER Body Mass Index 29.83 09/01/2024 8:05 AM SEO MANAGER documented in this encounter Progress Notes * Janice Krishnan R.N. - 09/01/2024 8:30 AM CST SUBJECTIVE CHIEF COMPLAINT/REASON FOR VISIT Breast cancer education HISTORY OF PRESENT ILLNESS Type of Cancer: right invasive lobular carcinoma Hormone Receptors: estrogen positive, progesterone positive, and HER2 negative Grade: 2 OBJECTIVE Patient accompanied by: friend, Rom Discussion: Reviewed with patient the findings from the breast pathology and specifically, the difference between in situ and invasive carcinomas. Discussed type of cancer, grading and staging of breast cancer. Discussed estrogen and progesterone receptor status. Discussed Patient Online Services. Explained the process for clinical evaluation which will be outlined today along with recommendations utilizing a team of providers for breast cancer treatment. Psychosocial: Patient appears to be coping adequately at this time. She has 3 children, 25, 22, and14. Her 3 years ago of brain cancer. He was treated at [facility]. She would prefer to have surgery here. The patient has a network of support including family and friends. I offered encouragement and my continued support at this time. MANAGER * Janice Krishnan R.N. - 09/01/2024 8:30 AM CST Breast Clinic Nurse Visit Reason for Nurse Visit: Education on Acupressure I introduced the patient to acupressure as a healing modality for Insomnia . Safety precautions were reviewed including skin integrity. Patient verbalized understanding of rationale for acupressure for symptom management and agreed to proceed with the session. RECOMMENDATION/PLAN Patient verbalized understanding of location of pressure points, frequency of repetition, and when to avoid acupressure for symptom management. Patient was educated and encouraged to use acupressure points multiple times per day for best results. The booklet, Acupressure [id number], was provided and reviewed with the patient for continued use of acupressure for symptom management. SUBJECTIVE CHIEF COMPLAINT/REASON FOR VISIT Review of resources related to breast cancer consultation. OBJECTIVE Discussion included: Resource List, Breast Cancer Mentorship contact information, [facility]. MANAGER documented in this encounter Consult Notes * Bina Vasques M.D. - 09/01/2024 8:30 AM CST SUBJECTIVE CHIEF COMPLAINT / REASON FOR VISIT New diagnosis breast cancer HISTORY OF PRESENT ILLNESS The patient is a very pleasant 54 y.o. woman who comes in today for further evaluation and recommendations in regards to a new diagnosis of breast cancer. Past Medical History: Oncology History 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) 08/15/2024 Initial Diagnosis Screening mammogram: Bilateral mammogram 08/02/2024: Right breast upper-outer quadrant, mid third depth spiculated mass which persists on additional mammographic views performed on 08/11/2024 with sonographic correlate described below. Left inner breast, posterior third depth 0.7 cm asymmetry seen only on the CC view (CC 36). Furtherevaluation with left diagnostic mammogram is recommended. Right breast ultrasound 08/11/2024: Right breast 10 o'clock axis, 8 cm from nipple hypoechoic spiculated mass measuring 0.9 x 0.6 x 0.9cm, corresponding to the mammographic finding.. This mass underwent ultrasound-guided biopsy on 08/15/2024 yielding invasive lobular carcinoma per outside report. On post biopsy mammogram a vision shaped biopsy marker is seen in the expected location. 08/15/2024 Biopsy/Pathology Biopsy: Core biopsy, Right, 08/15/24 ; Clip: Vision. invasive lobular carcinoma; Grade: 2. Hormone receptor testing: Estrogen positive (91-100%), Progesterone positive (91-100%), HER2 1+ (negative), and Ki-67 (5-10%.) Per [facility] Pathology Review: Complete. Genetic Testing and Tumor Genotyping Genetic testing: Scheduled, [facility] Consult Pending. BREAST CANCER RISK PROFILE: . Age at 1st parity between 25 to 29 breast-fed all of her children. Menarche at 13. Still having regular menstrual period. Has used control in the past for about 3 to 5 years. No HRT, no fertility medications, does not know if she was exposed to SHAE. No breast pain. Biopsy as above. No radiation to chest or breast in the past. Nonsmoker, has had secondhand smoking exposure for about 6 to 10 years in the past but not currently. Does not drink alcohol. Exercises routinely. Current weight 182 lb, weight a year ago 188 lb. She is 5 ft 6 in tall. She is of white race, not or , and not adopted. FAMILY HISTORY: No family history of breast or ovarian cancer. The following portions of the patient's history were reviewed and updated as appropriate: allergies, current medications, family history, medical history, social history, surgical history and problemlist. REVIEW OF SYSTEMS Please see HPI. All other systems reviewed and are negative. OBJECTIVE VITAL SIGNS BP 133/81 (BP Location: Right arm, Patient Position: Sitting, Cuff Size: Regular) Pulse 72 Ht 165.6 cm Wt 81.8 kg LMP 08/19/2024 (Exact Date) BMI 29.83 kg/m?? PHYSICAL EXAMINATION Constitutional: She appears well-developed and well-nourished. No distress. Neck: Normal range of motion. Neck supple. No thyromegaly present. Cardiovascular: Normal rate, regular rhythm and normal heart sounds. She exhibits no edema. Exam reveals no gallop and no friction rub. No murmur heard. Pulmonary/Chest: Effort normal and breath sounds normal. No respiratory distress. She has no wheezes. She has no rales. Breast: Right breast exhibits no inverted nipple, no mass, no nipple discharge, no skin change and no tenderness. Left breast exhibits no inverted nipple, no mass, no nipple discharge, no skin changeand no tenderness. Breasts are symmetrical. Lymphadenopathy: No submental, no submandibular and no occipital adenopathy present. She has no cervical adenopathy. She has no axillary adenopathy. Psychiatric: She has a normal mood and affect. ASSESSMENT / PLAN # Right grade 2 ILC ER/AL positive (91-100%), HER2 negative by IHC, Ki 67: 5-10% # Left breast asymmetry, further evaluation pending # Penicillin allergy # PFO with right to left shunt on ECHO Reviewed with the patient the findings from the breast pathology and specifically, the difference between in situ and invasive carcinomas. Reviewed grading and staging of breast cancer. Discussed estrogen, progesterone and HER2/jacquie receptor status and impact in determining use of adjuvant treatment. Surgical options were discussed including wide local excision and mastectomy. Equivalent survival with BCT and mastectomy discussed. Risks of local recurrence discussed. Advantages of frozen section pathology discussed. She is currently undecided on surgery, however leaning towards lumpectomy. If mastectomy she would like reconstruction. Discussed the role of the sentinel lymph node biopsy technique to assess lymph node involvement in invasive breast cancer. Reviewed the role of complete axillary node dissection if the sentinel lymphnode is positive. Discussed possible complications of sentinel lymph node biopsy and axillary node d issection including potential for lymphedema. Discussed plastic surgery options for reconstruction following mastectomy including breast implantsand flap procedures. Discussed delayed versus immediate reconstruction. Discussed breast MRI indications, risks, limitations, costs and benefits. Discussed potential risk of false-positive test results that might require additional tests with breast ultrasound, mammogramor biopsy. Discussed the role of radiation therapy including the schedule of radiation therapy. Reviewed benefits and potential side effects of radiation therapy. Reviewed the role of adjuvant hormonal treatment (anti-estrogens). Specifically, discussed the risks and benefits of tamoxifen and the aromatase inhibitors. Informed the patient that further discussion regarding the role of chemotherapy and adjuvant hormone therapy would take place with the medical oncologist. Discussed the role of neoadjuvant therapy for locally advanced breast cancer. Cancer is considered locally advanced if the tumor is large or if the cancer has spread to underarm lymph nodes, breast skin or the chest wall muscles. With locally advanced cancer, chemotherapy or hormonal therapy is usually administered before surgery. Further discussion with medical oncology will be coordinated to discuss the role of neoadjuvant therapy. Patient referred to breast clinic nurse for cancer education and psychosocial support. Cancer psychology consult may also be considered. I offered my encouragement and support during this difficult time. Discussed the role of the Breast Cancer Survivorship Clinic visit after completion of treatments. Follow-up may be completed either at [facility] or locally. Patient informed that the cancer surveillance schedule will include at a minimum six-month clinical breast exams and annual diagnostic mammograms for five years after which, usual cancer screening can be completed through the primary care provider. She is under the care of Cardiology and Neurology for her PFO. She is wearing a Holter monitor to be completed in a couple of weeks. Ultrasound of the lower extremity pending as well as echocardiogram in September. We have decided to move the lower extremity ultrasound evaluation to be completed today as this would impact the decision on went to proceed with breast surgery. RECOMMENDATIONS: - Lower extremity ultrasound - Left diagnostic mammogram and right axillary US - Bilateral breast MRI - Genetics consultation - Surgical Consultation PATIENT EDUCATION: Ready to learn, no apparent learning barriers were identified; learning preferences include listening. Explained diagnosis and treatment plan; patient expressed understanding of the content. Total visit time greater than 90 minutes, with over 50% spent counseling with the patient and coordination of care activities described above. MANAGER documented in this encounter Plan of Treatment Upcoming Encounters Date Type Department Care Team (Latest Contact Info) Description 10/16/2024 7:30 AM SEO MANAGER Virtual Visit Department of Cardiovascular Medicine in [place], [place] [address] [place] [phone] Tre Dumas M.D. [address] [place] [phone] 10/19/2024 10:15 AM SEO MANAGER Clinical Communication Virtual Review in [place], [place] [address] [place] [address] 10/20/2024 11:00 AM SEO MANAGER Comprehensive Visit Division of Plastic Surgery in [place], [place] [address] [place] [phone] Foster Mcclendon B.M., B.Ch., Ph.D. [address] [place] [phone] 10/20/2024 12:00 PM SEO MANAGER Office Visit Division of Breast and Melanoma Surgical Oncology in [place], [place] [address] [place] [phone] Brie Durant M.D. [address] [place] [phone] 10/30/2024 7:30 AM CDT Appointment Department of Radiology, [facility], in [place], [place] [address] [place] [phone] Brie Durant M.D. [address] [place] [phone] Discharge Disposition: Home or Self Care 10/30/2024 8:20 AM CDT Hospital Encounter [facility] 01 4 AM ADMIT [address] [place] [phone] Brie Durant M.D. [address] [place] [phone] 10/30/2024 8:20 AM CDT - 10/30/2024 1:24 PM CDT Surgery [facility] MAIN OR [address] [place] [address] Brie Durant M.D. [address] [place] [phone] BILATERAL SKIN SPARING MASTECTOMY 11/08/2024 10:00 AM CDT Comprehensive Visit Department of Oncology in [place], [place] [address] [place] [phone] Meghna Soto M.B., B.Ch. [address] [place] [phone] 11/08/2024 1:00 PM CDT Office Visit Division of Breast and Melanoma Surgical Oncology in [place], [place] [address] [place] [phone] Geno Stevenson APRN, C.N.P., D.N.P. [address] [place] [phone] 11/13/2024 8:00 AM CDT Office Visit Division of Plastic Surgery in [place], [place] [address] [place] [phone] Yoon Hamilton APRN, C.N.P., D.N.P. [address] [place] [phone] Scheduled Procedures Name Priority Associated Diagnoses Date/Ti [...] AM CDT RECONSTRUCTION BREAST WITH TISSUE DIRECTOR CLINICAL RESEARCH 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) 10/30/2024 8:20 AM CDT Scheduled Referrals Name Type Priority Associated Diagnoses Order Schedule Breast Clinic- Psychology Consult (Clinic) Outpatient Referral Routine 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) Anxiety Expected: 09/01/2024, Expires: 11/30/2025 documented as of this encounter Visit Diagnoses Diagnosis 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)- Primary Anxiety Patent Foramen Ovale (HCC) 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) documented in this encounter Care Teams Loan Clerk Relationship Specialty Start Date End Date Elsewhere, Pcp PCP - General Internal Medicine 07/25/24 documented as of this encounter
--- OUTSIDE RECORDS SUMMARY | 2024-10-13 22:13 | XMS_ITS | Encounter Summary ---
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 [address] [place] [address] Phone: tel: fax: [facility] Referral ID Status Reason Start Date Expiration Date Visits Re quested Visits Authorized [id number] Closed 07/25/2024 07/25/2025 1 1 FORM ENGINEER Reason for Visit * Cardiovascular-Diagnostic (Routine) - Closed Specialty Diagnoses / Procedures Referred By Safia garcia Referred To Contact Diagnoses Hypertension Essential Primary Dyspnea On Exertion Procedures Echo Transthoracic (TTE) Tre Dumas M.D. [address] [place] [address] Phone: tel: fax: [facility] Referral ID Status Reason Start Date Expiration Date Visits Re quested Visits Authorized [id number] Closed 07/25/2024 07/25/2025 1 1 Encounter Details Date Type Department Care Team (Latest Contact Info) Description 10/09/2024 10:12 AM PLATFORM ENGINEER - 10/09/2024 11:59 PM PLATFORM ENGINEER Hospital Encounter Department of Cardiovascular Diseases in [place], [place] [address] [place] [address] Tre Dumas M.D. [address] [place] [address] Hypertension Essential Primary; Dyspnea On Exertion Discharge Disposition: Home or Self Care Social History Tobacco Use Types Packs/Day Years Used Date Smoking Tobacco: Never Passive Smoke Exposure: Past Smokeless Tobacco: Never Alcohol Use Standard Drinks/Week Comments Not Currently 0 (1 standard drink = 0.6 oz pur e alcohol) [facility] Utilities Answer Date Recorded In the past 12 months has th e [employer], gas, oil, or water company threatened to [...] Sex Assigned at Female 07/25/2024 9:49 AM PLATFORM ENGINEER Legal Sex Female 6:01 PM PLATFORM ENGINEER Gender Identity Female 07/25/2024 9:49 AM PLATFORM ENGINEER Sexual Orientation Straight 07/25/2024 9: 49 AM PLATFORM ENGINEER documented as of this encounter Medications at [...] (Latest Contact Info) Description 10/16/2024 7:30 AM PLATFORM ENGINEER Virtual Visit Department of Cardiovascular Medicine in [place], [place] [address] [place] [phone] Tre Dumas M.D. [address] [place] [phone] 10/19/2024 10:15 AM PLATFORM ENGINEER Clinical Communication Virtual Review in [place], [place] [address] [place] [address] 10/20/2024 11:00 AM PLATFORM ENGINEER Comprehensive Visit Division of Plastic Surgery in [place], [place] [address] [place] [phone] Foster Mcclendon B.M., B.Ch., Ph.D. [address] [place] [phone] 10/20/2024 12:00 PM PLATFORM ENGINEER Office Visit Division of Breast and Melanoma Surgical Oncology in [place], [place] [address] [place] [phone] Brie Durant M.D. [address] [place] [phone] 10/30/2024 7:30 AM CDT Appointment Department of Radiology, [facility], in [place], [place] [address] [place] [phone] Brie Durant M.D. [address] [place] [phone] Discharge Disposition: Home or Self Care 10/30/2024 8:20 AM CDT Hospital Encounter [facility] 4 AM ADMIT [address] [place] [phone] Brie Durant M.D. [address] [place] [phone] 10/30/2024 8:20 AM CDT - 10/30/2024 1:24 PM CDT Surgery [facility] MAIN OR [address] [place] [address] Brie Durant M.D. [address] [place] [phone] BILATERAL SKIN SPARING MASTECTOMY 11/08/2024 10:00 AM CDT Comprehensive Visit Department of Oncology in [place], [place] [address] [place] [phone] Meghna Soto M.B., B.Ch. [address] [place] [phone] 11/08/2024 1:00 PM CDT Office Visit Division of Breast and Melanoma Surgical Oncology in [place], [place] [address] [place] [phone] Geno Stevenson APRN, C.N.P., D.N.P. [address] [place] [phone] 11/13/2024 8:00 AM CDT Office Visit Division of Plastic Surgery in [place], [place] [address] [place] [phone] Yoon Hamilton APRN C.N.P., D.N.P. [address] [place] [phone] Scheduled Procedures Name Priority Associated Diagnoses Date/Ti [...] 8:20 AM CDT RECONSTRUCTION BREAST WITH TISSUE PENSIONS RETIREMENT PLAN SPECIALIST 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) 10/30/2024 8:20 AM CDT documented as of this encounter Procedures Procedure Name Priority Date/Time Associated Diagnosis Comments (TTE) 2D ECHO DOPPLER COLOR AND CONTRAST Routine 10/09/2024 11:54 AM PLATFORM ENGINEER Hypertension Essential Primary Dyspnea On Exertion documented in this encounter Results * (TTE) 2D ECHO DOPPLER COLOR AND CONTRAST (10/09/2024 11:54 AM PLATFORM ENGINEER) Ejection Fraction 65 MC CV EIMS Sinus of Valsalva 35 MC CV EIMS Sinotubular Junction 31 MC CV EIMS Mid-Ascending Aorta 32 MC CV EIMS LV Mass Index 67 MC CV EIMS LV End-Diastolic Diameter 42 MC CV EIMS LV End-Systolic Diameter 26 MC CV EIMS LV End-Diastolic Volume 106 MC CV EIMS LV End-Systolic Volume 34 MC CV EIMS MV E Velocity 0.6 MC CV EIMS MV A Velocity 0.5 MC CV EIMS MV E/A 1.2 MC CV EIMS MV e' Velocity Medial 0.08 MC CV EIMS MV e' Velocity Lateral 0.09 MC CV EIMS MV E/e' Medial 7.5 MC CV EIMS MV E/e' Lateral 6.7 MC CV EIMS Left ventricular stroke volume index 43 MC CV EIMS Cardiac Output 5.22 MC CV EIMS Cardiac Index 2.73 MC CV EIMS LV Global Longitudinal Strain -20 MC CV EIMS LV Interventricular Septal Wall Thickness 9 MC CV EIMS LV Posterior Wall Thickness 10 MC CV EIMS LV Relative Wall Thickness 48 MC CV EIMS Tricuspid Annular S 0.14 MC CV EIMS RV Free Wall Strain -24 MC CV EIMS TR Vmax 2.1 MC CV EIMS RA Pressure 5 MC CV EIMS RV Systolic Pressure 23 MC CV EIMS AV mean gradient 4 MC CV EIMS Aortic valve area 3.18 MC CV EIMS Aortic Valve Dimensionless Index 0.7 MC CV EIMS LA Volume Index 26 MC CV EIMS Aortic Valve Systolic Peak Velocity 1.3 MC CV EIMS Anatomical Region Laterality Modality Echocardiography 10/09/2024 10:3 3 AM PLATFORM ENGINEER Impressions 10/09/2024 11:57 AM PLATFORM ENGINEER LEFT VENTRICLE:Normal left ventricular chamber size. Abnormal left ventricular geometry with concentric remodeling (increased wall thickness to cavity ratio). Calculated 2-D biplane volumetric left ventricular ejection fraction of 68% without the use of ultrasound enhancing agent. Calculated 3-D volumetric left ventricular ejection fraction 65%. No dynamic left ventricular outflow tract obstruction at rest or with Valsalva. Strain imaging examination performed to assess left ventricular function. Global averaged left ventricular longitudinal peak systolic strain is normal at -20% (normal = more negative than -18%). No regional wall motion abnormalities. Normal left ventricular diastolic function. RIGHT VENTRICLE:Normal right ventricular chamber size. Normal right ventricular systolic function. Strain imaging examination performed to assess right ventricular function. Averaged right ventricular free wall longitudinal peak systolic strain, vendor calculated, is -26% (normal </= -25%). Estimated right ventricular systolic pressure 23 mmHg (right atrial pressure of 5 mmHg). ATRIA:Normal left atrial size. Left atrial volume index 26 ml/m2. Strain imaging examination performed to assess left atrial function. Global averaged left atrial biplane longitudinal peak systolic strain is abnormal at 24.0% (normal is greater than 35%). Normal right atrial size by visual estimate. CARDIAC VALVES:Trileaflet aortic valve. Thickened aortic valve. No aortic valve regurgitation. Thickened mitral valve. Trivial mitral valve regurgitation. Normal pulmonary valve. Normal pulmonary valve systolic velocities. Trivial pulmonary valve regurgitation. Normal tricuspid valve. Trivial tricuspid valve regurgitation. OTHER ECHO FINDINGS:Normal inferior vena cava size with normal inspiratory collapse (>50%). Normal sinus of Valsalva diameter of 35 mm. Normal mid ascending aorta diameter of 32 mm. Abdominal aorta incompletely visualized. Normal abdominal aorta Doppler flow pattern. Agitated saline injection(s) performed. Positive for atrial level shunt by agitated saline contrast injection. Patent foramen ovale with [id number] shunt , 30 or greater bubbles seen in the left-sided chambers with Valsalva Maneuver.(almost complete opacification of the left-sided cavities after Valsalva clip 115) No intracardiac mass or thrombus, but the left atrial appendage cannot be visualized adequately with transthoracic echo to exclude thrombus in this location. No pericardial effusion. For the complete report, see the Order-Level Documents. Narrative 10/09/2024 11:57 AM PLATFORM ENGINEER For the complete report, see the Order-Level Documents. Hemodynamics Heart Rate: 63 BPM Blood Pressure: 143 / 87 mmHg ECG: Sinus rhythm Final Impressions 1. Normal left ventricular chamber size, no regional wall motion abnormalities, calculated 3-D volumetric ejection fraction 65%, global averaged longitudinal peak systolic strain is normal at -20% (normal = more negative than -18%). 2. Abnormal left ventricular geometry with concentric remodeling (increased wall thickness to cavity ratio), normal diastolic function. 3. Normal right ventricular chamber size, normal systolic function, averaged right ventricular free wall longitudinal peak systolic strain, vendor calculated, is - 26% (normal </= -25%), estimated right ventricular systolic pressure 23 mmHg (right atrial pressure of 5 mmHg). 4. Normal inferior vena cava size with normal inspiratory collapse (>50%). 5. No pericardial effusion. 6. Compared to the report of 04/21/2013 the following changes have occurred: LVEF is similar, a significant PFO was demonstrated in today's study. Procedure Note Jamal Márquez M.D. - 10/09/2024 For the complete report, see the Order-Level Documents. Hemodynamics Heart Rate: 63 BPM Blood Pressure: 143 / 87 mmHg ECG: Sinus rhythm Final Impressions 1. Normal left ventricular chamber size, no regional wall motionabnormalities, calculated 3-D volumetric ejection fraction 65%, globalaveraged longitudinal peak systolic strain is normal at -20% (normal =more negative than -18%). 2. Abnormal left ventricular geometry with concentric remodeling(increased wall thickness to cavity ratio), normal diastolic function. 3. Normal right ventricular chamber size, normal systolic function,averaged right ventricular free wall longitudinal peak systolic strain,vendor calculated, is - 26% (normal </= -25%), estimated right ventricularsystolic pressure 23 mmHg (right atrial pressure of 5 mmHg). 4. Normal inferior vena cava size with normal inspiratory collapse(>50%). 5. No pericardial effusion. 6. Compared to the report of 04/21/2013 the following changes haveoccurred: LVEF is similar, a significant PFO was demonstrated in today'sstudy. Findings LEFT VENTRICLE:Normal left ventricular chamber size. Abnormal leftventricular geometry with concentric remodeling (increased wall thicknessto cavity ratio). Calculated 2-D biplane volumetric left ventricularejection fraction of 68% without the use of ultrasound enhancing agent.Calculated 3-D volumetric left ventricular ejection fraction 65%. Nodynamic left ventricular outflow tract obstruction at rest or withValsalva. Strain imaging examination performed to assess left ventricularfunction. Global averaged left ventricular longitudinal peak systolicstrain is normal at -20% (normal = more negative than -18%). No regionalwall motion abnormalities. Normal left ventricular diastolic function. RIGHT VENTRICLE:Normal right ventricular chamber size. Normal rightventricular systolic function. Strain imaging examination performed toassess right ventricular function. Averaged right ventricular free walllongitudinal peak systolic strain, vendor calculated, is -26% (normal </=-25%). Estimated right ventricular systolic pressure 23 mmHg (right atrialpressure of 5 mmHg). ATRIA:Normal left atrial size. Left atrial volume index 26 ml/m2. Strainimaging examination performed to assess left atrial function. Globalaveraged left atrial biplane longitudinal peak systolic strain is abnormalat 24.0% (normal is greater than 35%). Normal right atrial size by visualestimate. CARDIAC VALVES:Trileaflet aortic valve. Thickened aortic valve. No aorticvalve regurgitation. Thickened mitral valve. Trivial mitral valveregurgitation. Normal pulmonary valve. Normal pulmonary valve systolicvelocities. Trivial pulmonary valve regurgitation. Normal tricuspid valve.Trivial tricuspid valve regurgitation. OTHER ECHO FINDINGS:Normal inferior vena cava size with normal inspiratorycollapse (>50%). Normal sinus of Valsalva diameter of 35 mm. Normal midascending aorta diameter of 32 mm. Abdominal aorta incompletelyvisualized. Normal abdominal aorta Doppler flow pattern. Agitated salineinjection(s) performed. Positive for atrial level shunt by agitated salinecontrast injection. Patent foramen ovale with [id number] shunt , 30 orgreater bubbles seen in the left-sided chambers with ValsalvaManeuver.(almost complete opacification of the left-sided cavities afterValsalva clip 115) No intracardiac mass or thrombus, but the left atrialappendage cannot be visualized adequately with transthoracic echo toexclude thrombus in this location. No pericardial effusion. For the complete report, see the Order-Level Documents. us Tre Dumas M.D. CV ECHO PROCEDURES Final Re sult documented in this encounter Visit Diagnoses Diagnosis 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)- Primary Hypertension Essential Primary Dyspnea On Exertion 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) documented in this encounter Administered Medications Inactive Administered Medications - up to 3 most recent administrations Medication Order MAR Action Action Date Dose Rate Site NaCl 0.9% bacteriostatic 0.9 % injection 30 mL 30 mL, intravenous, As needed, for agitated saline (bubble) studies, Starting on Wed10/09/24 at 1149, Intraprocedure - Diagnostic, See Giovanna. Given 10/09/2024 11:50 AM PLATFORM ENGINEER 30 mL sodium chloride 0.9 % injection 10 mL 10 mL, intravenous, As needed, line care, Starting on Wed10/09/24 at 1149, Intraprocedure - Diagnostic, Prior to and following infusion and between multiple consecutive infusions: sodium chloride 0.9 % injection Given 10/09/2024 11:50 AM PLATFORM ENGINEER 10 mL documented in this encounter Care Teams Woodworking Bench Carpenter Relationship Specialty Start Date End Date Elsewhere, Pcp PCP - General Internal Medicine 07/25/24 documented as of this encounter
--- OUTSIDE RECORDS SUMMARY | 2024-10-13 22:13 | XMS_ITS | Encounter Summary ---
Author Organization [facility] Address [address] [place] [address] Care Team Providers Care Hand Wood Sander Name Role Phone Elsewhere, Pcp Primary Care Provider Unavailabl e Encounter Details Date Type Department Care Team (Latest Contact Info) Description 10/09/2024 8:45 AM [facility] - 10/09/2024 10:11 AM [facility] Hospital Encounter Department of Laboratory Medicine and Pathology, [facility] in [place], [place] [address] [place] [phone] Tamika Santiago M.D. [address] [place] [phone] Patent Foramen Ovale (HCC) Discharge Disposition: Home or Self Care Social History Tobacco Use Types Packs/Day Years Used Date Smoking Tobacco: Never Passive Smoke Exposure: Past Smokeless Tobacco: Never Alcohol Use Standard Drinks/Week Comments Not Currently 0 (1 standard drink = 0.6 oz pur e alcohol) [facility] Utilities Answer Date Recorded In the past 12 months has [employer] electric, gas, oil, or water company threatened [...] Date Recorded Employment status Working with temporary 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 I have a [facility] place to live 07/25/2024 Comments No Sex and Gender Information Value Date Recorded Sex Assigned at Female 07/25/2024 9:49 AM [facility] Legal Sex Female 6:01 PM [facility] Gender Identity Female 07/25/2024 9:49 AM [facility] Sexual Orientation Straight 07/25/2024 9: 49 AM [facility] documented as of this encounter Medications at [...] (Latest Contact Info) Description 10/16/2024 7:30 AM [facility] Virtual Visit Department of Cardiovascular Medicine in [place], [place] [address] [place] [phone] Tre Dumas M.D. [address] [place] [phone] 10/19/2024 10:15 AM [facility] Clinical Communication Virtual Review in [place], [place] [address] [place] [phone] 10/20/2024 11:00 AM [facility] Comprehensive Visit Division of Plastic Surgery in [place], [place] [address] [place] [phone] Foster Mcclendon B.M., B.Ch., Ph.D. [address] [place] [phone] 10/20/2024 12:00 PM [facility] Office Visit Division of Breast and Melanoma Surgical Oncology in [place], [place] [address] [place] [phone] Brie Durant M.D. [address] [place] [phone] 10/30/2024 7:30 AM CDT Appointment Department of Radiology, [facility], in [place], [place] [address] [place] [phone] Brie Durant M.D. [address] [place] [phone] Discharge Disposition: Home or Self Care 10/30/2024 8:20 AM CDT Hospital Encounter [facility] 01 4 AM ADMIT [address] [place] [phone] Brie Durant M.D. [address] [place] [phone] 10/30/2024 8:20 AM CDT - 10/30/2024 1:24 PM CDT Surgery [facility] MAIN OR [address] [place] [phone] Brie Durant M.D. [address] [place] [phone] BILATERAL SKIN SPARING MASTECTOMY 11/08/2024 10:00 AM CDT Comprehensive Visit Department of Oncology in [place], [place] [address] [place] [phone] Meghna Soto M.B., B.Ch. [address] [place] [phone] 11/08/2024 1:00 PM CDT Office Visit Division of Breast and Melanoma Surgical Oncology in [place], [place] [address] [place] [phone] Geno Stevenson APRN, C.N.P., D.N.P. [address] [place] [phone] 11/13/2024 8:00 AM CDT Office Visit Division of Plastic Surgery in [place], [place] [address] [place] [phone] Yoon Hamilton APRN, C.N.P., D.N.P. [address] [place] [phone] Scheduled Procedures Name Priority Associated Diagnoses Date/Ti [...] 8:20 AM CDT RECONSTRUCTION BREAST WITH TISSUE EVISCERATOR 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) 10/30/2024 8:20 AM CDT documented as of this encounter Procedures Procedure Name Priority Date/Time Associated Diagnosis Comments THROMBOPHILIA PROF Routine 10/09/2024 8: 59 AM [facility] Patent Foramen Ovale (HCC) BETA-2 GLYCOPROTEIN 1 ABS, IGG AND IGM, S Routine 10/09/2024 8:59 AM [facility] Patent Foramen [place]vale (HCC) PHOSPHOLIPID (CARDIOLIPIN) ABS, IGG AND IGM, S Routine 10/09/2024 8:59 AM [facility] Patent Foramen Ovale (HCC) documented in this encounter Results * Phospholipid (Cardiolipin) Antibodies, IgG and IgM (10/09/2024 8:59 AM [facility]) Phospholipid Ab IgM, S <9.4 <15.0 (Negative) MPL 10/10/2024 7:20 PM [facility] SDSC Phospholipid Ab IgG, S <9.4 <15.0 (Negative) GPL 10/10/2024 7:20 PM [facility] SDSC Blood (Blood, Venous) 10/09/2024 8:59 AM [facility] 10/09/2024 12:24 PM [facility] us Tamika Santiago M.D. LAB BLOOD ADD-ON Final Result [facility] [address] [place] [address] [facility] [address] [place] [address] * Beta-2 Glycoprotein 1 Antibodies, IgG and IgM (10/09/2024 8:59 AM [facility]) Beta 2 GP1 Ab IgG, S <9.4 <15.0 (Negative) [facility] 10/10/2024 3:07 PM [facility]SC Beta 2 GP1 Ab IgM, S <9.4 <15.0 (Negative) [facility] 10/10/2024 3:07 PM [facility] Blood (Blood, Venous) 10/09/2024 8:59 AM [facility] 10/09/2024 11:52 AM [facility] us Tamika Santiago M.D. LAB BLOOD ADD-ON Final Result [facility] [address] [place] [address] [facility] [address] [place] [address] * Thrombophilia Profile (10/09/2024 8:59 AM [facility]) [facility] Prothrombin Time (PT), P 10.2 9.4 - 12.5 sec 10/09/2024 11:33 AM [facility] DTL INR 0.9 0.9 - 1.1 10/09/2024 11:33 AM [facility] DTL Comment: ----ADDITIONAL INFORMATION---- Standard intensity warfarin therapeutic range: 2.0 to 3.0 High intensity warfarin therapeutic range: 2.5 to 3.5 Activated Partial Thrombopl Time, P 26 25 - 37 sec 10/09/2024 11:34 AM [facility] DTL DRVVT Screen Ratio 0.93 <1.20 ratio 10/09/2024 11:32 AM [facility] DTL Thrombin Time (Bovine), P 22.9 15.8 - 24.9 sec 10/09/2024 11:32 AM [facility] DTL Fibrinogen, Clauss, P 317 200 - 500 mg/dL 10/09/2024 10:58 AM [facility] DTL Comment: ----ADDITIONAL INFORMATION---- This test has been modified from the distributor sales manager's instructions. Its performance characteristics were determined by [facility] in a manner consistent with CLIA requirements. This test has not been cleared or approved by the U.S. Food and Drug Administration. D-DIMER, P 321 <=500 ng/mL FEU 10/09/2024 11:33 AM [facility] DTL Comment: ----ADDITIONAL INFORMATION---- D-dimer values less than or equal to 500 ng/mL fibrinogen equivalent units (FEU) may be used in conjunction with clinical pre-test probability to exclude deep vein thrombosis (DVT) and/or pulmonary embolism (PE). Antithrombin Activity, P 100 80 - 130 % 10/09/2024 11:05 AM [facility] DTL Comment: ----ADDITIONAL INFORMATION---- This test has been modified from the distributor sales manager's instructions. Its performance characteristics were determined by [facility] in a manner consistent with CLIA requirements. This test has not been cleared or approved by the U.S. Food and Drug Administration. Protein C Activity, P 107 70 - 150 % 10/09/2024 11:30 AM [facility] DTL Comment: ----ADDITIONAL INFORMATION---- This test has been modified from the distributor sales manager's instructions. Its performance characteristics were determined by [facility] in a manner consistent with CLIA requirements. This test has not been cleared or approved by the U.S. Food and Drug Administration. Protein S Ag, Free, P 135 65 - 160 % 10/09/2024 10:59 AM [facility] DTL Comment: ----ADDITIONAL INFORMATION---- This test has been modified from the distributor sales manager's instructions. Its performance characteristics were determined by [facility] in a manner consistent with CLIA requirements. This test has not been cleared or approved by the U.S. Food and Drug Administration. APCRV Ratio 2.9 >or=2.3 10/09/2024 11:07 AM [facility] DTL Reviewed By Padma Stone M.D. 10/11/2024 1:48 PM [facility] DTL Prothrombin [id number] Mutation, B Negative Negative 10/11/2024 9:31 AM [facility] DTL PTNT Reviewed By Capri Patel M.D. 10/11 9:31 AM [facility] DTL PTNT Interpretation This individual DOES NOT have the Prothrombin F2 c.*97G>A (legacy numbering [id number]) variant. Although the Prothrombin (F2 c.*97G>A) variant is absent, this individual may have other genetic and environmental risk factors for thrombosis. If indicated, consider genetic consultation and counseling for this individual and potentially affected family members regarding laboratory testing. 10/11/2024 9:31 AM [facility] DTL Comment: ----ADDITIONAL INFORMATION---- This test uses TaqMan Genotyping chemistry to amplify and detect specific single nucleotide polymorphisms in purified genomic DNA. DISCLAIMER Patients receiving allogenic stem cell transplants prior to having blood drawn for DNA based testing may have false normal or abnormal results depending on the genotype of the stem cell donor. This test was developed and its performance characteristics determined by [facility] in a manner consistent with CLIA requirements. This test has not been cleared or approved by the U.S. Food and Drug Administration. Thrombophilia Interpretation IMPRESSION: No identifiable congenital or acquired thrombotic diathesis (thrombophilia) within limitations of current test repertoire. COMMENTS: No evidence of resistance to activated protein C (APC). Therefore, DNA-based testing for the factor V Leiden F5 c.1601G>A; p.Bno910Scd (legacy numbering [id number]) variant was not performed. A normal APC resistance ratio has a greater than 99% negative predictive value for factor V Leiden, F5 c.1601G>A; p.Bln148Nkl variant. No evidence of lupus anticoagulant (LAC), dysfibrinogenem ia, intravascular coagulation and fibrinolysis (ICF/DIC). No deficiencies of antithrombin, protein C, or protein S. DNA-based testing demonstrates that this individual DOES NOT have the Prothrombin F2 c.*97G>A (legacy numbering [id number]) variant. Separately performed and reported testing demonstrates normal serum anticardiolipin antibodies and beta-2 glycoprotein I antibodies (IgG and IgM). This testing was performed at [facility] (CLIA Number [id number]), [address] [place] [address]. 10/11/2024 1:48 PM [facility] DTL Blood (Blood, Venous) 10/09/2024 8:59 AM [facility] 10/09/2024 9:29 AM [facility] Narrative [facility] - 10/11/2024 1:48 PM [facility] Specimen Information: Specimen ID: [id number] Specimen Type: Blood Specimen Collection Start Date: 10/09/2024 8:59 AM Specimen Received Date: 10/09/2024 9:29 AM Specimen ID: [id number] Specimen Type: Blood Specimen Collection Start Date: 10/09/2024 8:59 AM Specimen Received Date: 10/09/2024 9:29 AM Specimen ID: [id number] Specimen Type: Blood Specimen Collection Start Date: 10/09/2024 8:59 AM Specimen Received Date: 10/09/2024 9:29 AM Specimen ID: [id number] Specimen Type: Blood Specimen Collection Start Date: 10/09/2024 8:59 AM Specimen Received Date: 10/09/2024 9:55 AM Specimen ID: [id number] Specimen Type: Blood Specimen Collection Start Date: 10/09/2024 8:59 AM Specimen Received Date: 10/09/2024 9:29 AM Specimen ID: [id number] Specimen Type: Blood Specimen Collection Start Date: 10/09/2024 9:00 AM Specimen Received Date: 10/09/2024 9:29 AM us Tamika Santiago M.D. LAB BLOOD NON ADD-ON Final Re sult [facility] [address] [place] [address], [facility] [address] [place], [place] [phone] [place] [address] [place] [address] documented in this encounter Visit Diagnoses Diagnosis 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)- Primary Patent Foramen Ovale (HCC) 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) documented in this encounter Care Teams Hand Wood Sander Relationship Specialty Start Date End Date Elsewhere, Pcp PCP - General Internal Medicine 07/25/24 documented as of this encounter
--- OUTSIDE RECORDS SUMMARY | 2024-10-13 22:13 | XMS_ITS | Clinical Summary ---
Author Organization [facility] Address [address] [place] [address] Care Team Providers Care Road Gang Supervisor Name Role Phone Shanelle Renee MD Primary Care Provide r Roxy Whaley RN Unavailable [phone] Kian English MD Unavailable [phone] Allergies Active Allergy Reactions Criticality Noted Date Comments Amoxicillin-Pot Clavulanate Hives 08/24/19 07 Clavulanic Acid Hives Low 07/04/2022 Morphine Itching 04/04/2013 Red Dye Nausea Only Low 10/02/2020 D And C Red No.22 Vomiting 05/16/2007 Medications cholecalciferol (VITAMIN D) 1,000 unit capsule Take 1 capsule by mouth once daily. 0 8 Active melatonin 1 mg Take 1 tablet by mouth at bedtime. 0 8 Active albuterol HFA (PRO-AIR; VENTOLIN; PROVENTIL) 90 mcg/actuation inhalerIndications: Bronchitis Inhale 2 Puffs by mouth 4 times daily if needed for Wheezing 1st choice. 1 Each 3 2 Active aspirin (ECOTRIN) 81 mg enteric coated tablet Take 81 mg by mouth once daily. Active LORazepam 1 mg tabletIndications:F ear of flying Take 1 mg tablet orally 1 hour prior to flight. May repeat 1 dose if needed in 4-6 hours. 10 Tablet 4 Active citalopram (CELEXA) 10 mg tabletIndications:A nxiety state Take 1 Tablet (10 mg) by mouth at bedtime. 90 Tablet 3 4 Active apixaban (Eliquis) 5 mg tabletIndications:p revention of venous thromboembolism recurrence Take 1 Tablet (5 mg) by mouth two times daily. 60 Tablet 4 Active Active Problems Problem Noted Date Diagnosed Date Monoallelic mutation of CHEK2 gene in female pat ient 09/11/2024 Overview (09/11/2024): CHEK2 c.1100del (p.[id number]*15) Primary cancer of right breast 08/28/2024 Cancer Staging:Clinical stage from 08/28/2024:Stage IA(cT1b, cN0, cM0, G2, ER+, MO+, HER2-) - Signed by Kian English MD on 08/28/2024 Cervical cancer screening 07/27/2024 Overview (07/27/2024): 07/2024 NIL/HPV negative Plan: Pap and HPV due 07/2029 Mild intermittent reactive a irway disease without complication 01/10/2024 FELIPA (generalized anxiety disorder) 01/09/2015 Migraines 11/25/2011 Allergic rhinitis, cause unspecified 05/16/2007 Hypoglycemia, unspecified 05/16/2007 Resolved Problems Problem Noted Date Diagnosed Date Resolved Date Supervision of high-risk pre gnancy of elderly multigravida 08/28/2009 07/18/2014 Encounters Date Type Department Care Team Description 09/11/2024 Telephone [facility] [address] [place] [address] Ya Benito MS, CGC Results (Cancer genetic testing) 09/05/2024 Orders Only [facility] [address] [place] [address] Ya Benito MS, CGC Lab 08/31/2024 11:00 AM EARLY EDUCATION TEACHER Telemedicine [facility] [address] [place] [address] Ya Benito MS, CGC Counseling (Cancer genetic counseling) 08/31/2024 Travel 08/28/2024 8:00 AM EARLY EDUCATION TEACHER Office Visit [facility] [address] [place] [phone] Kian English MD Consult 08/28/2024 Travel 08/21/2024 Telephone [facility] [address] [place] [address] [facility] Cancer Referral (Primary cancer of right breast ) 08/17/2024 Telephone [facility] [address] [place] [address] [facility] Cancer Referral ( Invasive lobular carcinoma, right breast ) 08/17/2024 Telephone [facility] [address] [place] [address] Noemí Og, CREW TRAINER Results 08/17/2024 Telephone [facility] [address] [place] [address] Bhumika Cross RN Pre Procedure (PFO Closure Aug 18) 08/15/2024 12:24 PM EARLY EDUCATION TEACHER - 08/15/2024 11:59 PM EARLY EDUCATION TEACHER Hospital Encounter [facility] [address] [place] [address] Shanelle Renee MD Abnormal mammogram 08/15/2024 Telephone [facility] [address] [place] [address] Xochitl Gunter Cancer Genetics 08/15/2024 Travel 08/11/2024 1:45 PM EARLY EDUCATION TEACHER Ancillary Procedure [facility] [address] [place] [address] 08/11/2024 1:30 PM EARLY EDUCATION TEACHER Ancillary Procedure [facility] [address] [place] [address] 08/11/2024 Ancillary Orders [facility] [address] [place] [address] Shanelle Renee MD 08/11/2024 Travel 08/11/2024 Orders Only [facility] [address] [place] [address] Surinder Vail NP <No scans attached> 08/04/2024 8:23 AM EARLY EDUCATION TEACHER - 08/04/2024 11:59 PM EARLY EDUCATION TEACHER Hospital Encounter [facility] [address] [place] [address] Shanelle Renee MD Dyslipidemia 08/04/2024 Travel 08/03/2024 Telephone [facility] [address] [place] [address] Tech, Mammo 08/02/2024 11:20 AM EARLY EDUCATION TEACHER Ancillary Procedure [facility] [address] [place] [address] 08/02/2024 Travel 08/01/2024 Orders Only [facility] Scanner 1 scan: [facility]Ord[facility], 08/01/2024 07/21/2024 Nurse Triage [facility] [address] [place] [address] Shanelle Renee MD Bleeding (Severe ) 07/20/2024 Telephone [facility] [address] [facility] [address] [place] [phone] Miguel Bhagat MD, PhD Surgery Scheduled (PFO Closure scheduling. ) 07/19/2024 12:00 PM EARLY EDUCATION TEACHER Office Visit [facility] [address] [place] [address] Deann Zhang DO Physical 07/19/2024 Travel from Last 3 Months Immunizations Name Administration Dates Next Due COVID-19 vaccine ([employer] NTLiftMetrix 30mcg/0.3mL) CASSI [place] 12/27/2020,12/06/2020 Hepatitis A (Adult) 07/18/2014 Hepatitis B (Adult) 11/25/2011,11/03/2002,1997 Imovax 04/19/2021,,04/05/2021, 021 Influenza, IIV3 (Age >=3 years) 05/23/2013,04/30,09/19/2010 Influenza, IIV4 06/09/2018, 8,06/24/2016, 015 MMR 03/06/2010 Td (Age >=7 Years) 09/27/2017,12/13/1997 Tdap 06/21/2007 Family History Medical History Relation Name Comments Diabetes Father Heart Disease Father CHF Cancer Maternal Grandfather lung Cancer Maternal Grandmother Cancer-breast Maternal Grandmother in [place] (osteosarcoma) Parkinsonism Maternal Uncle Cancer Mother Cancer-breast Mother in lung Cancer-colon Other 1 Great GrandMother Cancer-colon Other 2 Great Aunt's (Jessica) Cancer-colon Other 3 Great Aunt's [place] Cancer-colon Paternal Grandmother Diabetes Paternal Grandmother Heart Disease Paternal Grandmother Cancer-ovarian No Family History Relation Name Status Comments Brother Alive Father Alive Maternal Grandfather (Age 62) ca ncer Maternal Grandmother (Age 52) br east ca Maternal Uncle Mother (Age 28) breast ca. Other 1 Great GrandMother Other 2 Great Aunt's (Jessica) Other 3 Great Aunt's Jenna Paternal Aunt Alive Paternal Grandfather (Age 70) [...] is your housing situation today? 1 07/04/2024 Utilities Answer Date Recorded Do you have trouble paying f or utilities (for example, heat, electricity, water, phone)? 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 Peterson ie Delivery Location:[facility] Last Filed Vital Signs Vital Sign Reading Time Taken Comments Blood Pressure 125/81 08/28/2024 8:01 AM EARLY EDUCATION TEACHER Pulse 84 08/28/2024 8:01 AM EARLY EDUCATION TEACHER Temperature 36.6 C (97.8 F) 08/28/2024 8:01 AM EARLY EDUCATION TEACHER Respiratory Rate 16 03/21/2024 9:10 AM CDT Oxygen Saturation 98% 07/19/2024 12: 03 PM EARLY EDUCATION TEACHER Inhaled Oxygen Concentration - - Weight 83.4 kg (183 lb 14.4 oz) 08/28/2024 8:01 AM EARLY EDUCATION TEACHER Height 165.1 cm (5' 5) 07/19/2024 12:0 3 PM EARLY EDUCATION TEACHER Body Mass Index 30.6 07/19/2024 12:03 PM EARLY EDUCATION TEACHER Plan of Treatment Health Maintenance Due Date Last Done Comments Hepatitis C screening for ag e 18-79 1988 Pneumococcal series for age 50+ (1 of 2 - PCV) 1989 Zoster (shingles) series for age 50+ (1 of 2) 1989 COVID-19 vaccine series (3 - Pfizer risk series) 01/24/2021 12/27/2020, 12/06/2020 Influenza for age 50-64 04/16/2024 06/09/20 18, 09/21/2017, 06/24/2016, Additional history exists BMI (ht and wt on same day) for age 18+ 07/19/2025 07/19/2024, 06/27/2024, 06/05/2024, Additional history exists Depression screening for age 12+ 07/28/2025 07/28/2024, 07/21/2024, 07/20/2024, Additional history exists Mammogram for age 45-75 08/11/2025 08/11/20 24, 08/02/2024, 07/30/2023, Additional history exists Tetanus booster 09/27/2027 09/27/2017, 01/2007, 12/13/1997 Lipids for age 45-75 07/19/2029 07/19/2024, 07/25/2013, 12/22/2006 Pap test for age 21-65 07/19/2029 , 07/19/2024, 07/05/2018, Additional history exists Colonoscopy through age 75 02/01/203302/01, 02/01/2023, 12/13/2017, Additional history exists Tdap Completed 06/21/2007 HIV for age 15-65 Completed 08/28/2009 Procedures Procedure Name Priority Date/Time Associated Diagnosis Comments US BIOPSY BREAST NEEDLE W EPIFANIO W GUIDE RIGHT ELIAS 08/15/2024 2:05 PM EARLY EDUCATION TEACHER Abnormal mammogram XR MAMMO POST CLIP PLCMT RT Routine 08/15/2024 2:04 PM EARLY EDUCATION TEACHER Abnormal mammogram PATH TISSUE EXAM Today 08/15/2024 1:40 PM EARLY EDUCATION TEACHER US BREAST UNILATERAL RIGHT LIMITED ELIAS 08/11/2024 1:52 PM EARLY EDUCATION TEACHER Abnormal mammogram XR MAMMO JULIEN UNI ADDL VIEWS RIGHT ELIAS 08/11/2024 1:43 PM EARLY EDUCATION TEACHER Abnormal mammogram CT CARDIAC CALCIUM SCORE ONLY WO SINGLE READ Routine 08/04/2024 8:45 AM EARLY EDUCATION TEACHER Dyslipidemia XR MAMMO JULIEN BILAT SCREEN Routine 08/02/2024 11:30 AM EARLY EDUCATION TEACHER Visit for screening mammogram SCAN-RADIOLOGY REPORT 08/01/2024 12:00 AM EARLY EDUCATION TEACHER LIPID PANEL W REFLEX MEASURED LDL Routine 07/19/2024 12:39 PM EARLY EDUCATION TEACHER Screening, lipid HEMOGLOBIN A1C Routine 07/19/2024 12:38 PM EARLY EDUCATION TEACHER Screening for diabetes mellitus EMAIL MARKETING COORDINATOR THIN PREP PAP SCREEN IMAGED Routine 07/19/2024 12:33 PM EARLY EDUCATION TEACHER Pap smear for cervical cancer screening HPV HIGH RISK Routine 07/19/2024 12:33 PM EARLY EDUCATION TEACHER Pap smear for cervical cancer screening COLONOSCOPY SCREENING Routine 02/01/2023 12:00 AM CDT Encounter for screening colonoscopy ANTI HIV 1/2 Routine 08/28/2009 4:03 PM EARLY EDUCATION TEACHER Supervision of High-Risk of Elderly Multigravida from Last 3 Months or Most Recently Relevant to Health Maintenance Results * US BIOPSY BREAST NEEDLE W EPIFANIO W GUIDE RIGHT (08/15/2024 2:05 PM EARLY EDUCATION TEACHER) Anatomical Region Laterality Modality Breast Right Right Ultrasound, Othe r 08/15/2024 3:13 PM EARLY EDUCATION TEACHER Addenda Addendum by Chanel Norman MD on 08/18/2024 3:26 PM EARLY EDUCATION TEACHER For Patients: As a result of the Century Cures Act, medical imaging exams and procedure reports are released immediately into your electronic medical record. You may view this report before your referring provider. If you have questions, please contact your health care provider. ADDENDUM ADDENDUM ADDENDUM Pathologic Findings: RIGHT BREAST, 10 O'CLOCK, 8 CM FROM NIPPLE, ULTRASOUND-GUIDED CORE BIOPSY: Invasive lobular carcinoma RadPath Correlation: Imaging reviewed by Dr. Brendan Morin. Pathologic findings are concordant with radiologic findings. Recommendations: Surgical consultation is recommended. Notification: I discussed the findings and recommendations with the patient. A member of the [facility] cancer care coordination team will contact the patient to schedule surgical consultation. Noemí Og, MSN, RN, LAYOUT ARTIST [employer]. [email or web address] Impressions 08/15/2024 4:06 PM EARLY EDUCATION TEACHER Ultrasound-guided breast biopsy. When the pathology report is available, an addendum to this report will be made. ACR not applicable Dictated by: Chanel Norman MD @08/15/2024 3:13:21 PM /sp Narrative 08/15/2024 4:06 PM EARLY EDUCATION TEACHER For Patients: As a result of the Cures Act, medical imaging exams and procedure reports are released immediately into your electronic medical record. You may view this report before your referring provider. If you have questions, please contact your health care provider. ULTRASOUND-GUIDED RIGHT BREAST BIOPSY AND POST-BIOPSY DIGITAL MAMMOGRAM FOR BIOPSY MARKER PLACEMENT 08/15/2024 CLINICAL HISTORY: Suspicious RIGHT breast mass. COMPARISON STUDIES: 08/11/2024, 08/02/2024. TECHNIQUE: Real-time ultrasound with image documentation was used for targeting the breast lesion. Core biopsy specimens were obtained using an automated gun with a 14-gauge biopsy needle. Post-biopsy CC and ML digital mammograms were obtained to document position of the biopsy marker. CONSENT and TIME OUT: The procedure, risks, and alternatives were explained to the patient and a consent was signed. [place] Protocol was followed including pre-procedure verification that relevant information/documentation was available, reviewed and properly matched to the patient; consent accurate and complete; and equipment and supplies available. Time Out was conducted just prior to starting procedure to verify the four required elements: patient identity, correct side/site marked (if applicable), procedure, relevant images/results properly labeled and displayed (if applicable). PROCEDURE: The patient was positioned supine on the ultrasound table. The breast was prepped with Betadine or ChloraPrep. 3 cc of 1% lidocaine was injected for superficial anesthesia and 5 cc of 1% lidocaine with epinephrine was injected for deeper anesthesia. Core samples were obtained. A sterile metal biopsy clip was placed percutaneously to epifanio the lesion position within the breast. The specimens were placed in 10% formalin and sent to the pathology department. Pressure was held on the biopsy site until all bleeding subsided. The skin incision was closed with Steri-Strips. An ice pack was positioned over the biopsy site. Post-biopsy instructions were reviewed with the patient, and a written copy was given to her. LATERALITY: RIGHT. LESION: Solid irregular mass 10 o'clock, 8 cm from the nipple, measurement 0.6 x 0.9 x 0.9 cm. SUSPICION FOR MALIGNANCY: High. NUMBER OF SAMPLES: 4. BIOPSY CLIP SHAPE: Vision. PROXIMITY OF CLIP TO TARGET: On target. Shanelle Renee MD US Edite d Result - Final * XR MAMMO POST CLIP PLCMT RT (08/15/2024 2:04 PM EARLY EDUCATION TEACHER) Anatomical Region Laterality Modality BREASTS N/A Mammography Narrative 08/15/2024 4:06 PM EARLY EDUCATION TEACHER As a result of the Century Cures Act, medical imaging exams and procedure reports are released immediately into your electronic medical record. You may view this report before your referring provider. If you have questions, please contact your health care provider. RIGHT BREAST POST-BIOPSY MAMMOGRAM CLIP PLACEMENT 08/15/2024 PLEASE SEE [id number] FOR REPORT OF RIGHT BREAST BIOPSY OF SAME DAY. Shanelle Renee MD MAMMO Final Result * PATH TISSUE EXAM (08/15/2024 1:40 PM EARLY EDUCATION TEACHER) Case Report Pathology Report Case: [id number] Authorizing Provider: Chanel Norman MD Collected: 08/15/2024 1340 Ordering Location: [facility] Cancer Received: 08/15/2024 1427 [facility] Pathologist: Ced Rose MD Specimen: Right Breast Core Ultrasound Biopsy 08/18/2024 11:17 AM EARLY EDUCATION TEACHER [facility] Amendment 08/18/2024 - Amendment issued to incorporate ancillary studies. 08/18/2024 11:17 AM EARLY EDUCATION TEACHER [facility] ENTRAL LABORATORY Final Diagnosis A) RIGHT BREAST, 10:00, 8 CM FROM NIPPLE, ULTRASOUND-GUID ED CORE BIOPSY: 1. Invasive lobular carcinoma a. Ada grade: II of III; Keyona score: 6 of 9 b. Angio-lymphatic invasion: Absent c. Associated LCIS: Present 2. Breast Ancillary Testing: a. Hormone Receptors: Estrogen receptor: Positive (97%, strong staining) Progesterone receptor: Positive (95%, strong staining) b. HER2 by IHC: Negative (1+ by manual morphometry) c. Ki-67: 10% by image analysis 08/18/2024 11:17 AM [facility] ENTRAL LABORATORY Amendment electronically signed by Connor Kauffman MD on 08/18/2024 at 11:17 AM Comment A) This is an image-guided breast biopsy. The pathologic findings should be correlated with radiologic and clinical findings prior to treatment decisions. Case seen in consultation with Dr. Parsons. 08/18/2024 11:17 AM [facility] EN[facility]AL LABORAT[facility] Clinical Information LATERALITY: RIGHT. LESION: Solid irregular mass 10 o'clock, 8 cm from the nipple, measurement 0.6 x 0.9 x 0.9 cm. SUSPICION FOR MALIGNANCY: High. NUMBER OF SAMPLES: 4. BIOPSY CLIP SHAPE: Vision. 08/18/2024 11:17 AM [facility] EN[facility]AL LABORAT[facility] Gross Description A) Label: Patient's name and right Description: 4 Fibrofatty core biopsies Size: 1.1-1.8 cm in length by 0.2 cm in diameter Ink color: Green The specimen is submitted in toto in one cassette. Cold ischemic time: Less than 60 minutes, meets current ASCO/CAP guidelines. The specimen was fixed in formalin for a minimum of 6 hours and not longer than 72 hours. PRESTON 08/15/2024 08/18/2024 11:17 AM [facility] ENTRAL LABORATORY Microscopic Description The final diagnosis is based on microscopic examination of appropriate sections of all specimens. A) The presence of green ink is confirmed on tissue sections. IHC (block A1) interpreted as follows in lesional cells: E-cadherin... Diminished / non-membranous immunoreactivit y, consistent with lobular phenotype 08/18/2024 11:17 AM [facility] ENTRWV LABORATORY SYNOPTIC REPORTING Breast Biomarker Reporting Template BREAST BIOMARKER REPORTING TEMPLATE - A Protocol posted: 07/28/2023 Test(s) Performed: Estrogen Receptor (ER) Status: Positive (greater than 10% of cells demonstrate nuclear positivity) Percentage of Cells with Nuclear Positivity: 97 % Average Intensity of Staining: Strong Test Type: Laboratory-deve loped test Primary Antibody: SP1 Test(s) Performed: Progesterone Receptor (PgR) Status: Positive Percentage of Cells with Nuclear Positivity: 95 % Average Intensity of Staining: Strong Test Type: Laboratory-deve loped test Primary Antibody: 16 Test(s) Performed: HER2 by Immunohistochem istry: Negative (Score 1+) Test Type: Laboratory-deve loped test Primary Antibody: 4B5 Test(s) Performed: Ki-67 Ki-67 Percentage of Positive Nuclei: 10 % Primary Antibody: MIB1 Cold Ischemia and Fixation Times: Meet requirements specified in latest version of the ASCO / CAP Guidelines Testing Performed on Block Number(s): A1 METHODS Fixative: Formalin Image Analysis: Performed Method: Aperio morphometric analysis Biomarkers Scored by Image Analysis: ER Biomarkers Scored by Image Analysis: PgR Biomarkers Scored by Image Analysis: Ki-67 Comment(s): 2,026 nuclei were analyzed for Ki-67. 08/18/2024 11:17 AM [facility] Additional Information Patients with breast cancers that are HER2 IHC 3+ or IHC 2+/ANGELO amplified may be eligible for several therapies that disrupt HER2 signaling pathways. Invasive breast cancers that test 'HER2-negative' (IHC 0, 1+ or 2+/ANGELO not-amplified) are more specifically considered 'HER2-negative for protein overexpression/ gene amplification' since non-overexpress ed levels of the HER2 protein may be present in these cases. Patients with breast cancers that are HER2 IHC 0 - UltraLow, HER2 IHC 1+ or IHC 2+/ANGELO not amplified may be eligible for a treatment that targets non-amplified/n on-overexpresse d levels of HER2 expression for cytotoxic drug delivery (IHC 0 - Null results do not result in eligibility currently). Interpreted at [facility], Central Laboratory - [address], [place] [address] Immunohistochem istry controls were reviewed and approved by the pathologist during this examination. 08/18/2024 11:17 AM EARLY EDUCATION TEACHER [facility] LABORAT[facility]-C ENTRAL LABORATORY Other (Right Breast Core Ultrasound Biopsy) 08/15/2024 1:40 PM EARLY EDUCATION TEACHER 08/15/2024 2:27 PM EARLY EDUCATION TEACHER us Chanel Norman MD PATHOLOGY/CYTOLOGY Edited Result - Final [facility] [address] [place] [address], [place] * US BREAST UNILATERAL RIGHT LIMITED (08/11/2024 1:52 PM EARLY EDUCATION TEACHER) Anatomical Region Laterality Modality BREASTS, Breast Right Right Ultrasound Narrative 08/11/2024 4:06 PM EARLY EDUCATION TEACHER As a result of the Cures Act, medical imaging exams and procedure reports are released immediately into your electronic medical record. You may view this report before your referring provider. If you have questions, please contact your health care provider. RIGHT BREAST ULTRASOUND 08/11/2024 PLEASE SEE [id number] FOR RIGHT DIGITAL ADDITIONAL VIEWS MAMMOGRAM OF SAME DAY. us Shanelle Renee MD US Final Result * XR MAMMO JULIEN UNI ADDL VIEWS RIGHT (08/11/2024 1:43 PM EARLY EDUCATION TEACHER) Anatomical Region Laterality Modality BREASTS, Breast Right Mammograph y Impressions 08/11/2024 4:06 PM EARLY EDUCATION TEACHER Suspicious 6 x 9 x 9 mm mass RIGHT breast 10 o'clock 8 cm from the nipple. RECOMMENDATIONS: Ultrasound-guided core needle biopsy. BI-RADS Category 4: Suspicious Dictated by: Anmol Emery MD @08/11/2024 2:05:39 PM /sp PATIENTS: You will also receive a letter with your examination results in an easy to read format. If you have questions about your results, please contact your referring provider. Narrative 08/11/2024 4:06 PM EARLY EDUCATION TEACHER As a result of the Cures Act, medical imaging exams and procedure reports are released immediately into your electronic medical record. You may view this report before your referring provider. If you have questions, please contact your health care provider. RIGHT BREAST MAMMOGRAM DIGITAL ADDITIONAL VIEWS WITH TOMOSYNTHESIS 08/11/2024 RIGHT BREAST ULTRASOUND 08/11/2024 CLINICAL HISTORY: RIGHT breast mass/asymmetry. COMPARISON: 08/03/2024. TECHNIQUE: Digital RIGHT mammogram in two projections. Tomosynthesis was used in this interpretation. Real-time ultrasound imaging of RIGHT breast with imaging documentation. BREAST COMPOSITION: The breasts are heterogeneously dense, which may obscure small masses. FINDINGS: 3D spot compression CC/MLO RIGHT breast mammogram images submitted. Persistent suspicious mass with architectural distortion upper outer quadrant. No suspicious calcifications. Targeted RIGHT breast ultrasound performed. At 10 o'clock, 8 cm from the nipple, there is a hypoechoic solid nodule which is taller than wide measuring 6 x 9 x 9 mm. us Shanelle Renee MD MAMMO Final Result * CT CARDIAC CALCIUM SCORE ONLY WO SINGLE READ (08/04/2024 8:45 AM EARLY EDUCATION TEACHER) Anatomical Region Laterality Modality Computed Tomogra phy Impressions 08/04/2024 10:51 AM EARLY EDUCATION TEACHER The coronary artery calcium score of 0.0 is consistent with no identifiable calcification. Please note that all CT scans at this facility use dose modulation, iterative reconstruction and/or weight-based dosing when appropriate to reduce radiation dose to as low as reasonably achievable. ABIMBOLA GALAN M.D. [facility] [email or web address] Narrative 08/04/2024 10:51 AM EARLY EDUCATION TEACHER Table formatting from the original result was not included. For Patients: As a result of the Century Cures Act, medical imaging exams and procedure reports are released immediately into your electronic medical record. You may view this report before your referring provider. If you have questions, please contact your health care provider. CT CARDIAC CALCIUM SCORING, 08/04/2024 PATIENT HISTORY: Coronary artery disease screening. REPORT: High-resolution, ECG-synchronized computed tomography of the heart with attention to the coronary arteries was performed using Siemens ShelfFlip CT. Coronary calcification analyzed using Siemens calcium scoring software. These are the results of the evaluation: Artery Number of Lesions Volume Equiv. Mass Calcium Score LM 0 0.0 0.00 0.0 LAD 0 0.0 0.00 0.0 CX 0 0.0 0.00 0.0 RCA 0 0.0 0.00 0.0 TOTAL 0 0.0 0.00 0.0 Threshold: 130 HU (102.7 mg/cm3 CaHA) *) Calibration factor: 0.790 mg/(HUcm3) CaHA The Computed Tomography of the coronary arteries detected no coronary calcifications. According to the current state of knowledge ([place], Circulation 2000; 102:126) a coronary atherosclerosis including unstable plaque is very unlikely when no calcifications are present. A significant luminal obstructive disease is also very unlikely. Most patients without coronary calcifications have angiographically normal coronary arteries. There is only a low risk of a cardiac event in the next 2 to 5 years. No Identifiable Calcification Minimal Identifiable Calcification Mild Calcification Moderate Calcification Significant Calcification 0 1-10 11-100 101-400 401 and above (Following De Souza Clin Proc. 1999;74(3):243-252) COMMENT: Limited visualization of the lung abdul demonstrate calcified granuloma left lung and hilum and minimal scarring right lower lobe. Heart size normal. us Shanelle Renee MD CT Final Result * XR MAMMO JULIEN BILAT SCREEN (08/02/2024 11:30 AM EARLY EDUCATION TEACHER) Anatomical Region Laterality Modality BREASTS, Breast Left, Breast Right Bilateral Mammography 08/02/2024 2:29 PM EARLY EDUCATION TEACHER Impressions 08/03/2024 1:53 PM EARLY EDUCATION TEACHER RIGHT breast asymmetry/mass. RECOMMENDATIONS: Additional mammographic views of the RIGHT breast including 3D spot-compression CC/MLO. RIGHT breast ultrasound may also be required. A member of the breast health care team will contact the patient to schedule the required additional imaging appointment(s). BI-RADS Category 0: Incomplete: Need Additional Imaging Evaluation Dictated by: Anmol Emery MD @08/02/2024 2:29:38 PM /sp PATIENTS: You will also receive a letter with your examination results in an easy to read format. If you have questions about your results, please contact your referring provider. Narrative 08/03/2024 1:53 PM EARLY EDUCATION TEACHER As a result of the Century Cures Act, medical imaging exams and procedure reports are released immediately into your electronic medical record. You may view this report before your referring provider. If you have questions, please contact your health care provider. BILATERAL BREAST MAMMOGRAM DIGITAL SCREENING WITH COMPUTER-AIDED DETECTION AND TOMOSYNTHESIS 08/02/2024 CLINICAL HISTORY: Routine screening exam. COMPARISON: 07/30/2023, 07/29/2022, 07/30/2021. TECHNIQUE: Digital mammogram in CC and MLO projections including computer-aided detection. Tomosynthesis was used in this interpretation. BREAST COMPOSITION: The breasts are heterogeneously dense, which may obscure small masses. FINDINGS: RIGHT Breast: Focal asymmetric density with architectural distortion upper outer quadrant 8 cm from the nipple. LEFT Breast: No suspicious findings. us Shanelle Renee MD MAMMO Final Result * SCAN-RADIOLOGY REPORT (08/01/2024 12:00 AM EARLY EDUCATION TEACHER) Anatomical Region Laterality Modality Other us Scanner OTHER Final Result * (ABNORMAL) LIPID PANEL W REFLEX MEASURED LDL (07/19/2024 12:39 PM EARLY EDUCATION TEACHER) CHOLESTEROL, TOTAL 194 <200 mg/dL [facility] HDL CHOLESTEROL 46(L) > OR = 50 mg/dL [facility] TRIGLYCERIDES 203(H) <150 mg/dL [facility] Comment: If a non-fasting specimen was collected, consider repeat triglyceride testing on a fasting specimen if clinically indicated. Jayshree et al. J. of Clin. Lipidol. 2015;9:129-169. LDL-CHOLESTEROL 116(H) mg/dL (calc) [facility] Comment: Reference range: <100 Desirable range <100 mg/dL for primary prevention; <70 mg/dL for patients with CHD or diabetic patients with > or = 2 CHD risk factors. LDL-C is now calculated using the Emery calculation, which is a validated novel method providing better accuracy than the Friedewald equation in the estimation of LDL-C. Lugii BELTRAN et al. CAMELIA. 2013;310(19): 2781-3109 (http://education.Xenon Arc/faq/BEB744) CHOL/HDLC RATIO 4.2 <5.0 (calc) [facility] NON HDL CHOLESTEROL 148(H) <130 mg/dL (calc) [facility] Comment: For patients with diabetes plus 1 major ASCVD risk factor, treating to a non-HDL-C goal of <100 mg/dL (LDL-C of <70 mg/dL) is considered a therapeutic option. Blood BLOOD SPECIMEN / Unknown 07/19/2024 12:39 PM EARLY EDUCATION TEACHER 07/19/2024 12:40 PM EARLY EDUCATION TEACHER Narrative [facility] - 07/20/2024 3:33 AM EARLY EDUCATION TEACHER FASTING:YES FASTING: YES [employer] DO CHEMISTRY Final Result Performing Organization Address [facility] Co de Phone Number [employer] [facility] [address] [place] [address], [address] [phone] * HEMOGLOBIN A1C (07/19/2024 12:38 PM EARLY EDUCATION TEACHER) [facility] HEMOGLOBIN A1C 5.5 <5.7 % of total Hgb [facility] Comment: For the purpose of screening for the presence of diabetes: <5.7% Consistent with the absence of diabetes 5.7-6.4% Consistent with increased risk for diabetes (prediabetes) > or =6.5% Consistent with diabetes This assay result is consistent with a decreased risk of diabetes. Currently, no consensus exists regarding use of hemoglobin A1c for diagnosis of diabetes in children. According to [place] Diabetes Association (ADA) guidelines, hemoglobin A1c <7.0% represents optimal control in non- diabetic patients. Different metrics may apply to specific patient populations. Standards of Medical Care in Diabetes(ADA). Blood BLOOD SPECIMEN / Unknown 07/19/2024 12:38 PM EARLY EDUCATION TEACHER 07/19/2024 12:38 PM EARLY EDUCATION TEACHER [employer] DO CHEMISTRY Final Result Performing Organization Address City/[facility]/ZIP Co de Phone Number [employer] [facility] [address] [place] [address], [employer] [facility] [address] [place] [address] * EMAIL MARKETING COORDINATOR THIN PREP PAP SCREEN IMAGED (07/19/2024 12:33 PM EARLY EDUCATION TEACHER) Case Report Gynecologic Cytology Report Case: [id number] Authorizing Provider: Deann Zhang DO Collected: 07/19/2024 1233 Ordering Location: [facility] Received: 07/19/2024 1330 Clinic First Screen: Kaye Lee Rescreen: Lisbeth Fishman Specimen: EMAIL MARKETING COORDINATOR ThinPrep Vial Screening, Cervical 07/27/2024 8:25 AM EARLY EDUCATION TEACHER [facility] ENTRAL [facility]AT[facility] INTERPRETATION/ RESULT NEGATIVE FOR INTRAEPITHELIAL LESION OR MALIGNANCY (NIL) (none) 07/27/2024 8:25 AM EARLY EDUCATION TEACHER [facility] IMEN ADEQUACY Satisfactory for evaluation No endocervical component seen 07/27/2024 8:25 AM EARLY EDUCATION TEACHER [facility] EN[facility] HPV REQUEST HPV and PAP 07/27/2024 8:25 AM EARLY EDUCATION TEACHER [facility] Date of LMP 06/23/24 07/27/2024 8:25 AM EARLY EDUCATION TEACHER [facility] Last Pap Date 07/05/18 07/27/2024 8:25 AM EARLY EDUCATION TEACHER [facility] Last Pap Result NIL 8:25 AM EARLY EDUCATION TEACHER [facility] Abnormal Pap or Mckinnon Bx in last 5 years No 07/27/2024 8:25 AM EARLY EDUCATION TEACHER [facility] Menstrual Status Regular Periods 07/27/2024 8:25 AM EARLY EDUCATION TEACHER [facility] ENTRAL LABOR[facility] Mckinnon Bx Done Today No 07/27/2024 8:25 AM EARLY EDUCATION TEACHER [facility] [employer] [facility] ENTRAL LABORATORY Additional Information None given 07/27/2024 8:25 AM EARLY EDUCATION TEACHER [facility] Comment: Cytology is screened at [facility], Central Laboratory - [address], [place] [address] and [facility] Laboratory - [address], [place] [address] and Laboratory - [address] [place] [address] Interpreted at [facility] Laboratory - [address], [place] [address] Automated Review Successful 07/27/2024 8:25 AM EARLY EDUCATION TEACHER [facility] ENTRWV LABORATORY Comment:Specimen processed s uccessfully by automated high school teacher device, ThinPrep Imaging System, [employer] ANCILLARY TESTING EMAIL MARKETING COORDINATOR HPV Ordered, Please see separate report 07/27/2024 8:25 AM EARLY EDUCATION TEACHER [facility] Note The pap test is a screening technique, not a diagnostic procedure. It is used primarily to screen for squamous cancers and precursor lesions. Published studies have shown that it is subject to both false negative and false positive results. The pap test should not be used as the sole means to diagnose or exclude pre-malignant and malignant lesions. 07/27/2024 8:25 AM EARLY EDUCATION TEACHER [facility] ENTRAL LABORATORY Other (Cervical) Non-Blood / Unknown 07/19/2024 12:33 PM EARLY EDUCATION TEACHER 07/19/2024 1:30 PM EARLY EDUCATION TEACHER us Deann Zhang DO PATHOLOGY/CYTOLOGY Final Resul t [facility] [address] [place] [address], * HPV HIGH RISK (07/19/2024 12:33 PM EARLY EDUCATION TEACHER) TYPE 16 Negative Negative 07/22/2024 1:52 PM EARLY EDUCATION TEACHER [facility] TRAL LABORATORY TYPE 18 Negative Negative 07/22/2024 1:52 PM EARLY EDUCATION TEACHER [facility] TRAL LABORATORY OTHER HIGH RISK TYPES Negative Negative 07/22/2024 1:52 PM EARLY EDUCATION TEACHER [facility] TRAL LABORATORY Other (Cervical) Non-Blood / Unknown 07/19/2024 12:33 PM EARLY EDUCATION TEACHER 07/20/2024 3:18 PM EARLY EDUCATION TEACHER Narrative [facility] - 07/22/2024 1:52 PM EARLY EDUCATION TEACHER HPV types 16, 18, 31, 33, 35, 39, 45, 51, 52, 56, 58, 59, 66 and 68 DNA were undetectable or below the pre-set threshold. Methodology: Fuad Judie 4800 HPV Test us Deannconor Zhang DO MICROBIOLOGY Final Result [facility] [address] [address], [place] * COLONOSCOPY SCREENING (02/01/2023 12:00 AM CDT) us Shanelle Renee MD GI PROCEDURE ORD Claudia l Result * ANTI HIV 1/2 [59758.0] (08/28/2009 4:03 PM EARLY EDUCATION TEACHER) ANTI HIV 1/2 Non-reacti ve [facility] Blood specimen (specimen) BLOOD SPECIMEN / Unknown 08/28/2009 4:03 PM EARLY EDUCATION TEACHER 08/28/2009 3:54 PM EARLY EDUCATION TEACHER us Lily Feliciano MD SEND OUTS Final Result [facility] INTERNAL ZIP [id number] [address] from Last 3 Months or Most Recently Relevant to Health [place] [address] [facility] * Guarantor: Favian Patel Account Type Relation to Patient Date of Phone Billing Address Personal/Family 1999 [address] [place] [id number] Advance Directives * Full Code (Latest Code Status on File) Date Activated Date Inactivated Comments 03/21/2024 8:18 AM 03/22/2024 2:08 AM Question Answer Comments Code Status Discussion: Reviewed Preferences Care Teams Road Gang Supervisor Relationship Specialty Start Date End Date Shanelle Renee MD [address] [place] [address] PCP - General Family Practice 01/25/18 Roxy Whaley, RN [address] [address] Nurse Navigator - Oncology Registered Nurse 08/24/24 Kian English MD [address] [address] Surgery - Oncology 08/24/24
[2024-10-13 22:14] VITALS: BP 122/90; PULSE 82; RESP 16; TEMP 36.3; O2SAT 99; BMI 28.3
--- OUTSIDE RECORDS SUMMARY | 2024-10-13 22:14 | XMS_ITS | Encounter Summary ---
Author Organization [facility] Address [address] [place] [address] Care Team Providers Care Auger Press Operator Name Role Phone Elsewhere, Pcp Primary Care Provider Unavailabl e Reason for Referral * MRI/CAT/PET Scan (Routine) - Closed Specialty Diagnoses / Procedures Referred By Safia garcia Referred To Contact Radiology Diagnoses Abnormal Magnetic Resonance Imaging Breast 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) Procedures MR Breast Biopsy Right Additional Lesion with Guide Bina Vasques M.D. [address] [place] [address] Phone: tel: fax: [facility] Referral ID Status Reason Start Date Expiration Date Visits Re quested Visits Authorized [id number] Closed 09/15/2024 12/16/2025 1 1 RGLASS BOAT MAKER Reason for Visit * MRI/CAT/PET Scan (Routine) - Closed Specialty Diagnoses / Procedures Referred By Safia garcia Referred To Contact Radiology Diagnoses Abnormal Magnetic Resonance Imaging Breast 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) Procedures MR Breast Biopsy Right Additional Lesion with Guide Bina Vasques M.D. [address] [place] [address] Phone: tel: fax: [facility] Referral ID Status Reason Start Date Expiration Date Visits Re quested Visits Authorized [id number] Closed 09/15/2024 12/16/2025 1 1 Encounter Details Date Type Department Care Team (Latest Contact Info) Description 09/15/2024 9:45 AM FIBERGLASS BOAT MAKER - 09/15/2024 9:50 AM FIBERGLASS BOAT MAKER Hospital Encounter Department of Radiology, [facility], in [place], [place] [address] [place] [address] Bina Vasques M.D. [address] [place] [address] Abnormal Magnetic Resonance Imaging Breast; 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) Discharge Disposition: Home or Self Care Social History Tobacco Use Types Packs/Day Years Used Date Smoking Tobacco: Never Passive Smoke Exposure: Past Smokeless Tobacco: Never Alcohol Use Standard Drinks/Week Comments Not Currently 0 (1 standard drink = 0.6 oz pur e alcohol) [facility] Utilities Answer Date Recorded In the past 12 months has e [employer], gas, oil, or water [employer] threatened to shut off services in your [...] Sex Assigned at Female 07/25/2024 9:49 AM FIBERGLASS BOAT MAKER Legal Sex Female 6:01 PM FIBERGLASS BOAT MAKER Gender Identity Female 07/25/2024 9:49 AM FIBERGLASS BOAT MAKER Sexual Orientation Straight 07/25/2024 9: 49 AM FIBERGLASS BOAT MAKER documented as of this encounter Medications at [...] (Latest Contact Info) Description 10/16/2024 7:30 AM FIBERGLASS BOAT MAKER Virtual Visit Department of Cardiovascular Medicine in [place], [place] [address] [place] [phone] Tre Dumas M.D. [address] [place] [phone] 10/19/2024 10:15 AM FIBERGLASS BOAT MAKER Clinical Communication Virtual Review in [place], [place] [address] [place] [phone] 10/20/2024 11:00 AM FIBERGLASS BOAT MAKER Comprehensive Visit Division of Plastic Surgery in [place], [place] [address] [place] [phone] Foster Mcclendon B.M., B.Ch., Ph.D. [address] [place] [phone] 10/20/2024 12:00 PM FIBERGLASS BOAT MAKER Office Visit Division of Breast and Melanoma Surgical Oncology in [place], [place] [address] [place] [phone] Brie Durant M.D. [address] [place] [phone] 10/30/2024 7:30 AM CDT Appointment Department of Radiology, [facility], in [place], [place] [address] [place] [phone] Brie Durant M.D. [address] [place] [phone] Discharge Disposition: Home or Self Care 10/30/2024 8:20 AM CDT Hospital Encounter [facility] 01 4 AM ADMIT [address] [place] [phone] Brie Durant M.D. [address] [place] [phone] 10/30/2024 8:20 AM CDT - 10/30/2024 1:24 PM CDT Surgery [facility] MAIN OR [address] [place] [address] Brie Durant M.D. [address] [place] [phone] BILATERAL SKIN SPARING MASTECTOMY 11/08/2024 10:00 AM CDT Comprehensive Visit Department of Oncology in [place], [place] [address] [place] [phone] Meghna Soto M.B., B.Ch. [address] [place] [phone] 11/08/2024 1:00 PM CDT Office Visit Division of Breast and Melanoma Surgical Oncology in [place], [place] [address] [place] [phone] Geno Stevenson, KRISSY, C.N.P., D.N.P. [address] [place] [phone] 11/13/2024 8:00 AM CDT Office Visit Division of Plastic Surgery in [place], [place] [address] [place] [phone] Yoon Hamilton APRN, C.N.P., D.N.P. [address] [place] [phone] Scheduled Procedures Name Priority Associated Diagnoses Date/Ti [...] 8:20 AM CDT RECONSTRUCTION BREAST WITH TISSUE XM1 TANK DRIVER 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) 10/30/2024 8:20 AM CDT documented as of this encounter Procedures Procedure Name Priority Date/Time Associated Diagnosis Comments MR BREAST BIOPSY RIGHT ADDITIONAL LESION WITH GUIDE RAD - Routine (most inpatients and all outpatients) 09/15/2024 12:28 PM FIBERGLASS BOAT MAKER Abnormal Magnetic Resonance Imaging Breast 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) SURGICAL PATHOLOGY Routine 09/15/2024 11 :52 AM FIBERGLASS BOAT MAKER Abnormal Magnetic Resonance Imaging Breast 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) documented in this encounter Results * MR Breast Biopsy Right Additional Lesion with Guide (09/15/2024 12:28 PM FIBERGLASS BOAT MAKER) Anatomical Region Laterality Modality Breast, Breast Imaging RST L OS, Breast Imaging ARZ LOS, Breast Imaging FLA LOS Right Magnetic Resonance Addenda Addendum by Kj Wong M.D. on 09/18/2024 2:39 PM FIBERGLASS BOAT MAKER ADDENDUM: AMENDMENT TO ADD PATHOLOGY AND CONCORDANCE RESULTS. PLEASE SEE SEPARATE PATHOLOGY REPORT FOR COMPLETE INFORMATION. PATHOLOGY: Fibrocystic changes including dilated ducts, fragment suggestive of intraductal papilloma, focal usual ductal hyperplasia and background dense stromal fibrosis. CATEGORY: Benign RAD-PATH CONCORDANCE: Yes. ACR COMPLICATIONS: None. RECOMMENDATION: Individualized Recommendation Multidisciplinary management recommended for known right breast cancer. ASSESSMENT: 8: Pathology Benign. Impressions 09/15/2024 12:57 PM FIBERGLASS BOAT MAKER Successful image-guided needle biopsy. When final pathology results are available a revised report will be issued which will include radiologic/pathologic concordance and recommendations. Please be aware that in discordant cases, surgical consultation may be recommended even with a benign pathology result. RECOMMENDATION: Waiting for Pathology ASSESSMENT: 7: Waiting for Pathology. EP Narrative 09/15/2024 12:57 PM FIBERGLASS BOAT MAKER EXAM: MR BREAST BIOPSY RIGHT ADDITIONAL LESION WITH GUIDE INDICATION: Biopsy of focus of enhancement with known right breast malignancy. LESION/LOCATION: 3:00 position 1.5 cm from the nipple The patient underwent 2 site biopsy. This is site 2 of 2. Please see separate report for additional information. LESION SIZE (mm): 5 mm MEASUREMENT MODALITY: MRI IMAGING PRESENTATION: Non Mass Enhancement MODE OF DETECTION: MRI TECHNIQUE: MRI guided needle biopsy. Local anesthesia, 1% lidocaine. BIOPSY DEVICE: 9g vacuum-assisted petite needle. NUMBER OF PASSES: 12 SPECIMEN DIGITAL IMAGING: None. MARKING CLIP: Cylinder biopsy clip. POST-PROCEDURE DIGITAL IMAGING: Please see associated mammogram [...] medications. PATIENT EDUCATION: Provided by a care water team leader. Ready to learn, no apparent learning barriers were identified. Post-procedure care explained; patient expressed understanding of the content. Bina Vasques M.D. IMG MRI PROCEDURES Edited R esult - Final * Surgical Pathology (09/15/2024 11:52 AM FIBERGLASS BOAT MAKER) 09/18/2024 2:20 PM FIBERGLASS BOAT MAKER DTL Participated in the Interpretation Colten Cagle M.D.-Pathology Resident 09/18/2024 2:20 PM FIBERGLASS BOAT MAKER DTL Report electronically signed by Selma Gilbert.B.S., Ph.D. I verify that I have examined all relevant slides/materials for the specimen(s) and rendered or confirmed the diagnosis. Seen in consultation with: Carly Durbin M.D. 09/18/2024 2:20 PM FIBERGLASS BOAT MAKER DTL Gross Description Received in formalin labeled with patient's name, medical record number, and breast, right, site 2 are multiple pale rutherford fibroadiposetissue cores and three fragments, ranging from 0.1-1.7 cm in length and measuring 0.3 cm in average diameter. The specimens aresubmitted EN toto as follows: A1-A6: Two cores in each cassette A7: Three fragments Grossed by LMB. 09/18/2024 2:20 PM FIBERGLASS BOAT MAKER DTL Interpretation FINAL DIAGNOSIS Breast, Right site 2, MRI-guided core biopsy: Fibrocystic changes including dilated ducts, fragment suggestive of intraductal papilloma, focal usual ductal hyperplasia and background dense stromal fibrosis. DISCLAIMER This is an image-guided biopsy. The pathologic findings should be correlated with radiologic and clinical findings prior to management decisions. Digital imaging was used in the diagnostic assessment of this case. 09/18/2024 2:20 PM FIBERGLASS BOAT MAKER DTL Biopsy (Breast, Right) 09/15/2024 9:47 AM FIBERGLASS BOAT MAKER Bina Vasques M.D. LAB SURG PATH ORDERABLES Fi nal Result [facility] [address] [place] [address], [facility] DTL [address] [place] [address] documented in this encounter Visit Diagnoses Diagnosis Abnormal Magnetic Resonance Imaging Breast 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) 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) documented in this encounter Administered Medications Inactive Administered Medications - up to 3 most recent administrations Medication Order MAR Action Action Date Dose Rate Site lidocaine-EPINEPHrine 1 %-1:100,000 injection (Xylocaine w/epi) As needed, Starting on Wed09/15/24 at 1115, Intra-Op Given 09/15/2024 11:15 AM FIBERGLASS BOAT MAKER 10 mL Right Breast lidocaine-sodium bicarbonate (buffered) 0.9%-0.84% injection infiltration, As needed, Starting on Wed09/15/24 at 1115, Intra-Op Given 09/15/2024 11:15 AM FIBERGLASS BOAT MAKER 1 mL Right Breast documented in this encounter Care Teams Auger Press Operator Relationship Specialty Start Date End Date Elsewhere, Pcp PCP - General Internal Medicine 07/25/24 documented as of this encounter
--- OUTSIDE RECORDS SUMMARY | 2024-10-13 22:15 | XMS_ITS | Encounter Summary ---
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 200 [place] [address] Phone: tel: fax: [facility] Referral ID Status Reason Start Date Expiration Date Visits Re quested Visits Authorized [id number] Closed 09/15/2024 12/16/2025 1 1 Encounter Details Date Type Department Care Team (Latest Contact Info) Description 09/15/2024 9:20 AM REPAIR ARMATURE WINDER - 09/15/2024 9:44 AM REPAIR ARMATURE WINDER Hospital Encounter Department of Radiology in [place], [place] [address] [place] [address] Bina Vasques M.D. 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 I have a [facility] place to live 07/25/2024 Comments No Sex and Gender Information Value Date Recorded Sex Assigned at Female 07/25/2024 9:49 AM REPAIR ARMATURE WINDER Legal Sex Female 6:01 PM REPAIR ARMATURE WINDER Gender Identity Female 07/25/2024 9:49 AM REPAIR ARMATURE WINDER Sexual Orientation Straight 07/25/2024 9: 49 AM REPAIR ARMATURE WINDER documented as of this encounter Medications at [...] (Latest Contact Info) Description 10/16/2024 7:30 AM REPAIR ARMATURE WINDER Virtual Visit Department of Cardiovascular Medicine in [place], [place] [address] [place] [phone] Tre Dumas M.D. [address] [place] [phone] 10/19/2024 10:15 AM REPAIR ARMATURE WINDER Clinical Communication Virtual Review in [place], [place] 200 [place] [address] 10/20/2024 11:00 AM REPAIR ARMATURE WINDER Comprehensive Visit Division of Plastic Surgery in [place], [place] [address] [place] [phone] Foster Mcclendon B.M., B.Ch., Ph.D. [address] [place] [phone] 10/20/2024 12:00 PM REPAIR ARMATURE WINDER Office Visit Division of Breast and Melanoma Surgical Oncology in [place], [place] [address] [place] [phone] Brie Durant M.D. [address] [place] [phone] 10/30/2024 7:30 AM CDT Appointment Department of Radiology, [facility], in [place], [place] [address] [place] [phone] Brie Durant M.D. [address] [place] [phone] Discharge Disposition: Home or Self Care 10/30/2024 8:20 AM CDT Hospital Encounter RST RO 01 4 AM ADMIT [address] [place] [phone] Brie Durant M.D. [address] [place] [phone] 10/30/2024 8:20 AM CDT - 10/30/2024 1:24 PM CDT Surgery [facility] MA[facility] OR [address] [place] [address] Brie Durant M.D. [address] [place] [phone] BILATERAL SKIN SPARING MASTECTOMY 11/08/2024 10:00 AM CDT Comprehensive Visit Department of Oncology in [place], [place] [address] [place] [phone] Meghna Soto M.B., B.Ch. [address] [place] [phone] 11/08/2024 1:00 PM CDT Office Visit Division of Breast and Melanoma Surgical Oncology in [place], [place] [address] [place] [address] Geno Stevenson APRN, C.N.P., D.N.P. [address] [place] [phone] 11/13/2024 8:00 AM CDT Office Visit Division of Plastic Surgery in [place], [place] [address] [place] [phone] Yoon Hamilton APRN, C.N.P., D.N.P. 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) 10/30/2024 8:20 AM CDT documented as of this encounter Procedures Procedure Name Priority Date/Time Associated Diagnosis Comments BI BREAST DIAGNOSTIC LEFT POST PROCEDURE RAD - Routine (most inpatients and all outpatients) 09/15/2024 12:46 PM REPAIR ARMATURE WINDER Abnormal Magnetic Resonance Imaging Breast 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 RECOMMENDATION: Please See Recent Biopsy Report ASSESSMENT: 12: Post Procedure Mammograms for Marker Placement Narrative 09/15/2024 1:24 PM REPAIR ARMATURE WINDER EXAM: BI BREAST DIAGNOSTIC LEFT POST PROCEDURE INDICATION: Post procedure mammogram COMPARISON: Prior exam(s) were available and reviewed for comparison. DENSITY: c. The breast(s) are heterogeneously dense, which may obscure small masses. FINDINGS: Cork biopsy clip in appropriate position in the lower inner left breast middle depth. Procedure Note Kj Wong M.D. - 09/15/2024 EXAM: BI BREAST DIAGNOSTIC LEFT POST PROCEDURE INDICATION: Post procedure mammogram COMPARISON: Prior exam(s) were available and reviewed for comparison. DENSITY: c. The breast(s) are heterogeneously dense, which may obscuresmall masses. FINDINGS: Cork biopsy clip in appropriate position in the lower innerleft breast middle depth. IMPRESSION: The biopsy clip is in the appropriate position. 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
--- OUTSIDE RECORDS SUMMARY | 2024-10-13 22:15 | XMS_ITS | Encounter Summary ---
Author Organization [facility] Address [address] [place] [address] Care Team Providers Care Chemical Research Technician Name Role Phone Elsewhere, Pcp Primary Care Provider Unavailabl e Reason for Referral * Outpatient (Routine) - Authorized Specialty Diagnoses / Procedures Referred By Safia garcia Referred To Contact General Surgery Brie Durant M.D. [address] [place] [phone] Phone: tel: fax: Brie Durant M.D. [address] [place] [phone] Phone: tel: fax: Referral ID Status Reason Start Date Expiration Date V isits Requested Visits Authorized [id number] Authorized 09/27/2024 03/29/2026 1 1 Scheduling Instructions Please schedule on [place] [phone] Durant; Gail, RN to see for education and consent GER PEST Encounter Details Date Type Department Care Team (Late st Contact Info) Description 09/27/2024 Orders Only Division of Breast and Melanoma Surgical Oncology in [place], [place] [address] [place] [phone] Gail Monterroso, R.N. [address] [place] [phone] Social History Tobacco Use Types Packs/Day Years Used Date Smoking Tobacco: Never Passive Smoke Exposure: Past Smokeless Tobacco: Never Alcohol Use Standard Drinks/Week Comments Not Currently 0 (1 standard drink = 0.6 oz pur e alcohol) [facility] Utilities Answer Date Recorded In the [...] your living situation today? I have a [facility] place to live 07/25/2024 Comments No Sex and Gender Information Value Date Recorded Sex Assigned at Female 07/25/2024 9:49 AM MANAGER PEST Legal Sex Female 6:01 PM MANAGER PEST Gender Identity Female 07/25/2024 9:49 AM MANAGER PEST Sexual Orientation Straight 07/25/2024 9: 49 AM MANAGER PEST documented as of this encounter Plan of Treatment Upcoming Encounters Date Type Department Care Team (Latest Contact Info) Description 10/16/2024 7:30 AM MANAGER PEST Virtual Visit Department of Cardiovascular Medicine in [place], [place] [address] [place] [phone] Tre Dumas M.D. [address] [place] [phone] 10/19/2024 10:15 AM MANAGER PEST Clinical Communication Virtual Review in [place], [place] 200 [place] [address] 10/20/2024 11:00 AM MANAGER PEST Comprehensive Visit Division of Plastic Surgery in [place], [place] [address] [place] [phone] Foster Mcclendon B.M., B.Ch., Ph.D. [address] [place] [phone] 10/20/2024 12:00 PM MANAGER PEST Office Visit Division of Breast and Melanoma Surgical Oncology in [place], [place] [address] [place] [phone] Brie Durant M.D. [address] [place] [phone] 10/30/2024 7:30 AM CDT Appointment Department of Radiology, [facility], in [place], [place] [address] [place] [phone] Brie Durant M.D. [address] [place] [phone] Discharge Disposition: Home or Self Care 10/30/2024 8:20 AM CDT Hospital Encounter [facility] 01 4 AM ADMIT [address] [place] [phone] Brie Durant M.D. [address] [place] [phone] 10/30/2024 8:20 AM CDT - 10/30/2024 1:24 PM CDT Surgery [facility] MAIN OR [address] [place] [address] Brie Durant M.D. [address] [place] [phone] BILATERAL SKIN SPARING MASTECTOMY 11/08/2024 10:00 AM CDT Comprehensive Visit Department of Oncology in [place], [place] [address] [place] [phone] Meghna Soto M.B., B.Ch. [address] [place] [phone] 11/08/2024 1:00 PM CDT Office Visit Division of Breast and Melanoma Surgical Oncology in [place], [place] [address] [place] [phone] Geno Stevenson APRN, C.N.P., D.N.P. [address] [place] [phone] 11/13/2024 8:00 AM CDT Office Visit Division of Plastic Surgery in [place], [place] [address] [place] [phone] Yoon Hamilton APRN, C.N.P., D.N.P. 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
--- OUTSIDE RECORDS SUMMARY | 2024-10-13 22:15 | XMS_ITS | Encounter Summary ---
Author Organization [facility] Address [address] [place] [address] Care Team Providers Care Batch Records Clerk Name Role Phone Elsewhere, Pcp Primary Care Provider Unavailabl e Reason for Visit * MRI/CAT/PET Scan (Routine) - Closed Specialty Diagnoses / Procedures Referred By Safia garcia Referred To Contact Radiology Diagnoses Abnormal Magnetic Resonance Imaging Breast 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) Procedures MR Breast Biopsy Left with Guidance Bina Vasques M.D. 200 [place] [address] Phone: tel: fax: [facility] Referral ID Status Reason Start Date Expiration Date Visits Re quested Visits Authorized [id number] Closed 09/15/2024 12/12/2025 2 2 Encounter Details Date Type Department Care Team (Latest Contact Info) Description 09/15/2024 9:51 AM BODY SHOP ESTIMATOR - 09/15/2024 11:59 PM [facility] Hospital Encounter Department of Radiology, [facility], in [place], [place] 200 [place] [address] Bina Vasques M.D. 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 I have a [facility] place to live 07/25/2024 Comments No Sex and Gender Information Value Date Recorded Sex Assigned at Female 07/25/2024 9:49 AM BODY SHOP ESTIMATOR Legal Sex Female 6:01 PM BODY SHOP ESTIMATOR Gender Identity Female 07/25/2024 9:49 AM BODY SHOP ESTIMATOR Sexual Orientation Straight 07/25/2024 9: 49 AM BODY SHOP ESTIMATOR documented as of this encounter Medications at [...] (Latest Contact Info) Description 10/16/2024 7:30 AM BODY SHOP ESTIMATOR Virtual Visit Department of Cardiovascular Medicine in [place], [place] [address] [place] [phone] Tre Dumas M.D. [address] [place] [phone] 10/19/2024 10:15 AM BODY SHOP ESTIMATOR Clinical Communication Virtual Review in [place], [place] 200 [place] [address] 10/20/2024 11:00 AM BODY SHOP ESTIMATOR Comprehensive Visit Division of Plastic Surgery in [place], [place] [address] [place] [phone] Foster Mcclendon B.M., B.Ch., Ph.D. [address] [place] [phone] 10/20/2024 12:00 PM BODY SHOP ESTIMATOR Office Visit Division of Breast and Melanoma Surgical Oncology in [place], [place] [address] [place] [phone] Brie Durant M.D. [address] [place] [phone] 10/30/2024 7:30 AM CDT Appointment Department of Radiology, [facility], in [place], [place] [address] [place] [phone] Brie Durant M.D. [address] [place] [phone] Discharge Disposition: Home or Self Care 10/30/2024 8:20 AM CDT Hospital Encounter RST [facility] 01 4 AM ADMIT [address] [place] [phone] Brie Durant M.D. [address] [place] [phone] 10/30/2024 8:20 AM CDT - 10/30/2024 1:24 PM CDT Surgery [facility] MAIN OR [address] [place] [address] Brie Durant M.D. [address] [place] [phone] BILATERAL SKIN SPARING MASTECTOMY 11/08/2024 10:00 AM CDT Comprehensive Visit Department of Oncology in [place], [place] [address] [place] [phone] Meghna Soto M.B., B.Ch. [address] [place] [phone] 11/08/2024 1:00 PM CDT Office Visit Division of Breast and Melanoma Surgical Oncology in [place], [place] [address] [place] [phone] Geno Stevenson APRN, C.N.P., D.N.P. [address] [place] [phone] 11/13/2024 8:00 AM CDT Office Visit Division of Plastic Surgery in [place], [place] [address] [place] [phone] Yoon Hamilton APRN, C.N.P., D.N.P. 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 I verify that I have examined all relevant slides/materials for the specimen(s) and rendered or confirmed the diagnosis. 09/19/2024 12:40 PM BODY SHOP ESTIMATOR DTL Gross Description Received in formalin labeled with patient's name, medical record number, and breast, left are seven rutherford-yellow fibroadipose tissue coresand multiple fragments, ranging from 0.2 3.3 cm in length and measuring 0.3 cm in average diameter. The specimens are submitted ENtoto as follows: A1-A5: One core in each cassette A6: Two cores A7-A8: Seven fragments in each cassette Grossed by LMB. 09/19/2024 12:40 PM BODY SHOP ESTIMATOR DTL Addendum Immunostain for CK5 (block A5) demonstrates loss of mosaic staining pattern within the atypical ducts, supporting the interpretation of DCIS. CK5 also highlights myoepithelial cells in the periphery of DCIS and within the fibrovascular cores of papilloma involved by DCIS. Digital imaging was used in the diagnostic assessment of this case. Signed by Zulma GilbertS., Ph.D. 09/22/2024 9:58 AM Breast, Left, MRI-guided core biopsy, block A3 SPECIAL PROCEDURE REPORT Breast Biomarker(s) for: Carcinoma in situ Result(s): Estrogen Receptor (ER) Status: Positive Percentage of tumor cells with nuclear positivity: 91-100% Average Intensity of Staining: Strong Internal and external controls are present and show appropriate reactivity. Progesterone Receptor (PgR) Status: Positive Percentage of tumor cells with nuclear positivity: 91-100% Average Intensity of Staining: Strong Internal and external controls are present and show appropriate reactivity. Fixation conditions for this specimen were indicated to be within the ASCO/CAP guidelines. Specimen fixation and processing: the specimen that was tested is 10% neutral buffered formalin-fixed paraffin-embedded sections. Test results are only valid for non-decalcified paraffin embedded specimens fixed in 10% neutral buffered formalin within 1 hour of acquisition and fixed between 6 and 72 hours. Delay to fixation, under fixation or over fixation fall outside of ASCO/CAP guidelines and may affect these results. METHOD AND SCORING ER/VA Breast Cancer Scoring Manual Method: Testing is performed using Cutler ER (SP1) and Cutler VA (1E2) rabbit monoclonal primary antibodies and a proprietary detection system. Reporting criteria for ER and VA IHC are based on the following: less than 1% immunoreactive cells is negative and greater than or equal to 1% immunoreactive cells is positive. Per current ASCO/CAP guidelines (2020), a subset of cases with low-expression of ER undergoes a secondary review https://pubmed.ncb i.nlm.nih.gov/3192 8404/ . This test has been modified from the plant maintenance mechanic's instructions. Its performance characteristics were determined by [facility] in a manner consistent with CLIA requirements. This test has not been cleared or approved by the U.S. Food and Drug Administration. Signed by Taylor Vasques 09/20/2024 7:50 PM Test results for (IHC or ANGELO) testing are valid for specimens fixed between 6 and 72 hours. Delay to fixation, under fixation or over fixation fall outside of guidelines and may affect these results. 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 Immunostaining (block A3) for E-cadherin demonstrates intact membranous staining pattern within the in-situ carcinoma, supporting a ductal phenotype, and CK5 demonstrates loss of mosaic staining pattern within the DCIS, supporting the above interpretation. Stains for ER and VA will be performed and the results will be reported in an addendum. DISCLAIMER This is an image-guided biopsy. The pathologic findings should be correlated with radiologic and clinical findings prior to management decisions. A portion of the testing process was performed at [facility] site [id number]. Digital imaging was used in the diagnostic assessment of this case. 09/22/2024 9:58 AM BODY SHOP ESTIMATOR DTL Biopsy (Breast, Left) 09/15/2024 9:52 AM BODY SHOP ESTIMATOR us Bina Vasques M.D. LAB SURG PATH ORDERABLES Ed ited Result - Final [facility] [address] [place] [address], [facility] DTL [address] [place] [address] documented in this encounter Visit Diagnoses Diagnosis [...] w/epi) As needed, Starting on Wed09/15/24 at 1116, Intra-Op Given 09/15/2024 11:16 AM BODY SHOP ESTIMATOR 10 mL Left Breast lidocaine-sodium bicarbonate (buffered) 0.9%-0.84% injection infiltration, As needed, Starting on Wed09/15/24 at 1116, Intra-Op Given 09/15/2024 11:16 AM BODY SHOP ESTIMATOR 10 mL Le ft Breast documented in this encounter Care Teams Batch Records Clerk Relationship Specialty Start Date End Date Elsewhere, Pcp PCP - General Internal Medicine 07/25/24 documented as of this encounter
--- OUTSIDE RECORDS SUMMARY | 2024-10-13 22:15 | XMS_ITS | Encounter Summary ---
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 [address] [place] [phone] Phone: tel: fax: [facility] Referral ID Status Reason Start Date Expiration Date V isits Requested Visits Authorized [id number] Authorized 09/25/2024 03/27/2026 1 1 Scheduling Instructions Please schedule with Dr. Mcclendon per Nayla Solano. Thank you! ITY CONTROL REPRESENTATIVE Encounter Details Date Type Department Care Team (Late st Contact Info) Description 09/21/2024 Clinical Communication Division of Plastic Surgery in [place], [place] [address] [place] [phone] Foster Mcclendon B.M., B.Ch., Ph.D. [address] [place] [phone] Social History Tobacco Use Types Packs/Day Years Used Date Smoking Tobacco: Never Passive Smoke Exposure: Past Smokeless Tobacco: Never Alcohol Use Standard Drinks/Week Comments Not Currently 0 (1 standard drink = 0.6 oz pur e alcohol) [facility] Utilities Answer Date Recorded In the [...] Date Recorded Employment status Working with temporary [employer] 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 I have a [facility] place to live 07/25/2024 Comments No Sex and Gender Information Value Date Recorded Sex Assigned at Female 07/25/2024 9:49 AM QUALITY CONTROL REPRESENTATIVE Legal Sex Female 6:01 PM QUALITY CONTROL REPRESENTATIVE Gender Identity Female 07/25/2024 9:49 AM QUALITY CONTROL REPRESENTATIVE Sexual Orientation Straight 07/25/2024 9: 49 AM QUALITY CONTROL REPRESENTATIVE documented as of this encounter Plan of Treatment Upcoming Encounters Date Type Department Care Team (Latest Contact Info) Description 10/16/2024 7:30 AM QUALITY CONTROL REPRESENTATIVE Virtual Visit Department of Cardiovascular Medicine in [place], [place] [address] [place] [phone] Tre Dumas M.D. [address] [place] [phone] 10/19/2024 10:15 AM QUALITY CONTROL REPRESENTATIVE Clinical Communication Virtual Review in [place], [place] 200 [place] [phone] 10/20/2024 11:00 AM QUALITY CONTROL REPRESENTATIVE Comprehensive Visit Division of Plastic Surgery in [place], [place] [address] [place] [phone] Foster Mcclendon B.M., B.Ch., Ph.D. [address] [place] [phone] 10/20/2024 12:00 PM QUALITY CONTROL REPRESENTATIVE Office Visit Division of Breast and Melanoma Surgical Oncology in [place], [place] [address] [place] [phone] Brie Durant M.D. [address] [place] [phone] 10/30/2024 7:30 AM CDT Appointment Department of Radiology, [facility], in [place], [place] [address] [place] [phone] Brie Durant M.D. [address] [place] [phone] Discharge Disposition: Home or Self Care 10/30/2024 8:20 AM CDT Hospital Encounter [facility] 01 4 AM ADMIT [address] [place] [phone] Brie Durant M.D. [address] [place] [phone] 10/30/2024 8:20 AM CDT - 10/30/2024 1:24 PM CDT Surgery [facility] MAIN OR [address] [place] [phone] Brie Durant M.D. [address] [place] [phone] BILATERAL SKIN SPARING MASTECTOMY 11/08/2024 10:00 AM CDT Comprehensive Visit Department of Oncology in [place], [place] [address] [place] [phone] Meghna Soto M.B., B.Ch. [address] [place] [phone] 11/08/2024 1:00 PM CDT Office Visit Division of Breast and Melanoma Surgical Oncology in [place], [place] [address] [place] [phone] Geno Stevenson APRN, C.N.P., D.N.P. [address] [place] [phone] 11/13/2024 8:00 AM CDT Office Visit Division of Plastic Surgery in [address] [phone] Yoon Hamilton APRN, C.N.P., D.N.P. 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
--- OUTSIDE RECORDS SUMMARY | 2024-10-13 22:15 | XMS_ITS | Encounter Summary ---
Author Organization [facility] Address [address] [place] [address] Care Team Providers Care Wellness Nurse Rn Name Role Phone Elsewhere, Pcp Primary Care Provider Unavailabl e Reason for Visit * Outpatient (Routine) - Closed Specialty Diagnoses / Procedures Referred By Safia garcia Referred To Contact Neurology Tamika Santiago M.D. [address] [place] [phone] Phone: tel: fax: Kwesi Poole M.D. [address] [place] [phone] Phone: tel: fax: Referral ID Status Reason Start Date Expiration Date Visits Re quested Visits Authorized [id number] Closed 07/25/2024 01/24/2026 1 1 Encounter Details Date Type Department Care Team (Late st Contact Info) Description 10/11/2024 1:00 PM THREAD SEPARATOR Office Visit Department of Neurology in [place], [place] [address] [place] [phone] Kwesi Poole M.D. [address] [place] [phone] Patent Foramen Ovale (HCC) (Primary Dx) Social History Tobacco Use Types Packs/Day Years Used Date Smoking Tobacco: Never Passive Smoke Exposure: Past Smokeless Tobacco: Never Alcohol Use Standard Drinks/Week Comments Not Currently 0 (1 standard drink = 0.6 oz pur e alcohol) [facility] Utilities Answer Date Recorded In the past [...] your living situation today? I have a [facility] place to live 07/25/2024 Comments No Sex and Gender Information Value Date Recorded Sex Assigned at Female 07/25/2024 9:49 AM THREAD SEPARATOR Legal Sex Female 6:01 PM THREAD SEPARATOR Gender Identity Female 07/25/2024 9:49 AM THREAD SEPARATOR Sexual Orientation Straight 07/25/2024 9: 49 AM THREAD SEPARATOR documented as of this encounter Consult Notes * Kwesi Poole M.D. - 10/11/2024 1:00 PM CST Mrs. Ayers is a 54-year-old woman who returns today with her . 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 This was asymptomatic. This was discovered however because of migraine with neurological or symptoms. She had a very extensive workup for mechanisms including a patent foramen ovale which was known at the time of her appointment in the heart brain Clinic. The remainder of her workup was negative or normal. She had DVT ultrasoundprolonged cardiac monitoring and special coagulation testing. She did have a transthoracic echocardiogram in our laboratory which does demonstrate a significant PFO with nxygc-lz-[id number] shunt greater than 30 bubbles. I discussed this with her in detail particularly the negative findings on other testing. She is going to be meeting with Dr. Dumas from Cardiology about closure of a PFO. Since first being assessed in the heart brain Clinic she has been diagnosed with lobular carcinoma of the breast and is being scheduled to have bilateral mastectomies. Based on this information I think it is not unreasonable to consider PFO closure although I can notstate that she has had neurological symptoms secondary to this. She will discuss this in detail with Dr. Massey next week. 20 minutes total time counseling and coordination of care greater than half AD SEPARATOR documented in this encounter Plan of Treatment Upcoming Encounters Date Type Department Care Team (Latest Contact Info) Description 10/16/2024 7:30 AM THREAD SEPARATOR Virtual Visit Department of Cardiovascular Medicine in [place], [place] [address] [place] [phone] Tre Dumas M.D. [address] [place] [phone] 10/19/2024 10:15 AM THREAD SEPARATOR Clinical Communication Virtual Review in [place], [place] 200 [place] [phone] 10/20/2024 11:00 AM THREAD SEPARATOR Comprehensive Visit Division of Plastic Surgery in [place], [place] [address] [place] [phone] Foster Mcclendon B.M., B.Ch., Ph.D. [address] [place] [phone] 10/20/2024 12:00 PM THREAD SEPARATOR Office Visit Division of Breast and Melanoma Surgical Oncology in [place], [place] [address] [place] [phone] Brie Durant M.D. [address] [place] [phone] 10/30/2024 7:30 AM CDT Appointment Department of Radiology, [facility], in [place], [place] [address] [place] [phone] Brie Durant M.D. [address] [place] [phone] Discharge Disposition: Home or Self Care 10/30/2024 8:20 AM CDT Hospital Encounter [facility] 01 4 AM ADMIT [address] [place] [phone] Brie Durant M.D. [address] [place] [phone] 10/30/2024 8:20 AM CDT - 10/30/2024 1:24 PM CDT Surgery [facility]ST [facility] MAIN OR [address] [place] [phone] Brie Durant M.D. [address] [place] [phone] BILATERAL SKIN SPARING MASTECTOMY 11/08/2024 10:00 AM CDT Comprehensive Visit Department of Oncology in [place], [place] [address] [place] [phone] Meghna Soto M.B., B.Ch. [address] [place] [phone] 11/08/2024 1:00 PM CDT Office Visit Division of Breast and Melanoma Surgical Oncology in [place], [place] [address] [place] [phone] Geno Stevenson APRN, C.N.P., D.N.P. [address] [place] [phone] 11/13/2024 8:00 AM CDT Office Visit Division of Plastic Surgery in [place], [place] [address] [place] [phone] Yoon Hamilton APRN, C.N.P., D.N.P. 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
--- OUTSIDE RECORDS SUMMARY | 2024-10-13 22:15 | XMS_ITS | Encounter Summary ---
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 200 [place] [address] Phone: tel: fax: [facility] Referral ID Status Reason Start Date Expiration Date V isits Requested Visits Authorized [id number] Authorized 09/19/2024 03/21/2026 1 1 Scheduling Instructions 7-14 days post op; please group appointments ARATION SUPERVISOR * Outpatient (Routine) - Authorized Specialty Diagnoses / Procedures Referred By Contac t Referred To Contact General Surgery Brie Durant M.D. 200 [place] [address] Phone: tel: fax: [facility] Referral ID Status Reason Start Date Expiration Date V isits Requested Visits Authorized [id number] Authorized 09/19/2024 03/21/2026 1 1 Scheduling Instructions With APPs; please group with other post op appointments All patients without plastic surgeon involved in the case (ie - lumpectomy, total mastectomy etc) - RTN appointment should be at 7-10 days;All patients combined with plastic surgery - RTN appointment 1-2 weeks is OK. Can be at day 14 if that's best for coordination of appointments with plastics. 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 [address] [place] [phone] Phone: tel: fax: [facility] Referral ID Status Reason Start Date Expiration Date V isits Requested Visits Authorized [id number] Authorized 09/19/2024 12/20/2025 8 8 ARATION SUPERVISOR Encounter Details Date Type Department Care Team (Late st Contact Info) Description 09/19/2024 Orders Only Division of Breast and Melanoma Surgical Oncology in [place], [place] [address] [place] [phone] Gail Monterroso R.N. 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 I have a [facility] place to live 07/25/2024 Comments No Sex and Gender Information Value Date Recorded Sex Assigned at Female 07/25/2024 9:49 AM PREPARATION SUPERVISOR Legal Sex Female 6:01 PM PREPARATION SUPERVISOR Gender Identity Female 07/25/2024 9:49 AM PREPARATION SUPERVISOR Sexual Orientation Straight 07/25/2024 9: 49 AM PREPARATION SUPERVISOR documented as of this encounter Plan of Treatment Upcoming Encounters Date Type Department Care Team (Latest Contact Info) Description 10/16/2024 7:30 AM PREPARATION SUPERVISOR Virtual Visit Department of Cardiovascular Medicine in [place], [place] [address] [place] [phone] Tre Dumas M.D. [address] [place] [phone] 10/19/2024 10:15 AM PREPARATION SUPERVISOR Clinical Communication Virtual Review in [place], [place] 200 [place] [phone] 10/20/2024 11:00 AM PREPARATION SUPERVISOR Comprehensive Visit Division of Plastic Surgery in [place], [place] [address] [place] [phone] Foster Mcclendon B.M., B.Ch., Ph.D. [address] [place] [phone] 10/20/2024 12:00 PM PREPARATION SUPERVISOR Office Visit Division of Breast and Melanoma Surgical Oncology in [place], [place] [address] [place] [phone] Brie Durant M.D. [address] [place] [phone] 10/30/2024 7:30 AM CDT Appointment Department of Radiology, [facility], in [place], [place] [address] [place] [phone] Brie Durant M.D. [address] [place] [phone] Discharge Disposition: Home or Self Care 10/30/2024 8:20 AM CDT Hospital Encounter [facility]ST [facility] 01 4 AM ADMIT [address] [place] [phone] Brie Durant M.D. [address] [place] [phone] 10/30/2024 8:20 AM CDT - 10/30/2024 1:24 PM CDT Surgery [facility]ST [facility] MAIN OR [address] [place] [address] Brie Durant M.D. [address] [place] [phone] BILATERAL SKIN SPARING MASTECTOMY 11/08/2024 10:00 AM CDT Comprehensive Visit Department of Oncology in [place], [place] [address] [place] [phone] Meghna Soto M.B., B.Ch. [address] [place] [phone] 11/08/2024 1:00 PM CDT Office Visit Division of Breast and Melanoma Surgical Oncology in [place], [place] [address] [place] [phone] Geno Stevenson APRN, C.N.P., D.N.P. 200 [place] [address] 11/13/2024 8:00 AM CDT Office Visit Division of Plastic Surgery in [place], [place] [address] [place] [phone] Yoon Hamilton APRN, C.N.P., D.N.P. 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) Expected: 10/30/2024, Expires: 09/19/2025 Scheduled Procedures Name Priority Associated Diagnoses Date/Ti [...] 8:20 AM CDT RECONSTRUCTION BREAST WITH TISSUE SUPERVISOR WET POUR 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) 10/30/2024 8:20 AM CDT Scheduled Referrals Name Type Priority Associated Diagnoses Orde r Schedule General Surgery Post Op (clinic) Outpatient Referral Routine Expected: 11/06/2024 (Approximate), Expires: 12/17/2025 Oncology - Medical, breast consult (clinic) Outpatient Referral Routine 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) Expected: 11/06/2024 (Approximate), Expires: 12/17/2025 documented as of this encounter Visit Diagnoses Diagnosis 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
--- OUTSIDE RECORDS SUMMARY | 2024-10-13 22:15 | XMS_ITS | Encounter Summary ---
Author Organization [facility] Address [address] [place] [address] Care Team Providers Care Rn Orthopedic Name Role Phone Elsewhere, Pcp Primary Care Provider Unavailabl e Encounter Details Date Type Department Care Team (Late st Contact Info) Description 09/18/2024 Orders Only Division of Breast and Melanoma Surgical Oncology in [place], [place] [address] [place] [address] Gail Monterroso, RNataliaN. 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 I have a [facility] place to live 07/25/2024 Comments No Sex and Gender Information Value Date Recorded Sex Assigned at Female 07/25/2024 9:49 AM UNIVERSITY RELATIONS VICE PRESIDENT Legal Sex Female 6:01 PM UNIVERSITY RELATIONS VICE PRESIDENT Gender Identity Female 07/25/2024 9:49 AM UNIVERSITY RELATIONS VICE PRESIDENT Sexual Orientation Straight 07/25/2024 9: 49 AM UNIVERSITY RELATIONS VICE PRESIDENT documented as of this encounter Plan of Treatment Upcoming Encounters Date Type Department Care Team (Latest Contact Info) Description 10/16/2024 7:30 AM UNIVERSITY RELATIONS VICE PRESIDENT Virtual Visit Department of Cardiovascular Medicine in [place], [place] [address] [place] [phone] Tre Dumas M.D. [address] [place] [phone] 10/19/2024 10:15 AM UNIVERSITY RELATIONS VICE PRESIDENT Clinical Communication Virtual Review in [place], [place] 200 [place] [phone] 10/20/2024 11:00 AM UNIVERSITY RELATIONS VICE PRESIDENT Comprehensive Visit Division of Plastic Surgery in [place], [place] [address] [place] [phone] Foster Mcclendon B.M., B.Ch., Ph.D. [address] [place] [phone] 10/20/2024 12:00 PM UNIVERSITY RELATIONS VICE PRESIDENT Office Visit Division of Breast and Melanoma Surgical Oncology in [place], [place] [address] [place] [phone] Brie Durant M.D. [address] [place] [phone] 10/30/2024 7:30 AM CDT Appointment Department of Radiology, [facility], in [place], [place] [address] [place] [phone] Brie Durant M.D. [address] [place] [phone] Discharge Disposition: Home or Self Care 10/30/2024 8:20 AM CDT Hospital Encounter [facility] 01 4 AM ADMIT [address] [place] [phone] Brie Durant M.D. [address] [place] [phone] 10/30/2024 8:20 AM CDT - 10/30/2024 1:24 PM CDT Surgery [facility] MAIN OR [address] [place] [phone] Brie Durant M.D. [address] [place] [phone] BILATERAL SKIN SPARING MASTECTOMY 11/08/2024 10:00 AM CDT Comprehensive Visit Department of Oncology in [place], [place] [address] [place] [phone] Meghna Soto M.B., B.Ch. [address] [place] [phone] 11/08/2024 1:00 PM CDT Office Visit Division of Breast and Melanoma Surgical Oncology in [place], [place] [address] [place] [phone] Geno Stevenson APRN, C.N.P., D.N.P. [address] [place] [phone] 11/13/2024 8:00 AM CDT Office Visit Division of Plastic Surgery in [place], [place] [address] [place] [phone] Yoon Hamilton APRN, C.N.P., D.N.P. 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
--- OUTSIDE RECORDS SUMMARY | 2024-10-13 22:15 | XMS_ITS | Encounter Summary ---
Author Organization [facility] Address [address] [place] [id number] Care Team Providers Care Denture Technician Name Role Phone Elsewhere, Pcp Primary Care Provider Unavailabl e Encounter Details Date Type Department Care Team (Late st Contact Info) Description 09/18/2024 Results Follow-Up Division of General Internal Medicine in [place], [place] [address] [place] [address] Bina Vasques M.D. [address] [place] [phone] MR Breast Biopsy Right with Guidance Social History Tobacco Use Types Packs/Day Years Used Date Smoking Tobacco: Never Passive Smoke Exposure: Past Smokeless Tobacco: Never Alcohol Use Standard Drinks/Week Comments Not Currently 0 (1 standard drink = 0.6 oz pur e alcohol) [facility] Utilities Answer Date Recorded In the past 12 months has Your Policy Manager, gas, oil, or water [employer] threatened to shut off services in your [...] your living situation today? I have a [facility] place to live 07/25/2024 Comments No Sex and Gender Information Value Date Recorded Sex Assigned at Female 07/25/2024 9:49 AM DATA ANALYSIS INTERN Legal Sex Female 6:01 PM DATA ANALYSIS INTERN Gender Identity Female 07/25/2024 9:49 AM DATA ANALYSIS INTERN Sexual Orientation Straight 07/25/2024 9: 49 AM DATA ANALYSIS INTERN documented as of this encounter Miscellaneous Notes * Result Encounter Note - Bina Vasques M.D. - 09/18/2024 3:15 PM DATA ANALYSIS INTERN Discussed the results of the right breast biopsies. She had 2 site additional biopsies, MR guided on September 15. The 8 o'clock position 3.5 cm from the nipple this came back positive for grade 2 invasive lobular carcinoma. The other site biopsy from the 3 o'clock position 1.5 cm from the nipple came back with benign changes. Discussed this findings with the patient over the phone today. She nowhas multifocal disease. The likely recommendation be mastectomy however the surgeon Dr. Durant will further discuss this with her. She verbalized understanding. Answered her questions to the best of my ability. ANALYSIS INTERN documented in this encounter Plan of Treatment Upcoming Encounters Date Type Department Care Team (Latest Contact Info) Description 10/16/2024 7:30 AM DATA ANALYSIS INTERN Virtual Visit Department of Cardiovascular Medicine in [place], [place] [address] [place] [phone] Tre Dumas M.D. [address] [place] [phone] 10/19/2024 10:15 AM DATA ANALYSIS INTERN Clinical Communication Virtual Review in [place], [place] [address] [place] [phone] 10/20/2024 11:00 AM DATA ANALYSIS INTERN Comprehensive Visit Division of Plastic Surgery in [place], [place] [address] [place] [phone] Foster Mcclendon B.M., B.Ch., Ph.D. [address] [place] [phone] 10/20/2024 12:00 PM DATA ANALYSIS INTERN Office Visit Division of Breast and Melanoma Surgical Oncology in [place], [place] [address] [place] [phone] Brie Durant M.D. [address] [place] [phone] 10/30/2024 7:30 AM CDT Appointment Department of Radiology, [facility], in [place], [place] [address] [place] [phone] Brie Durant M.D. [address] [place] [phone] Discharge Disposition: Home or Self Care 10/30/2024 8:20 AM CDT Hospital Encounter [facility] 01 4 AM ADMIT [address] [place] [phone] Brie Durant M.D. [address] [place] [phone] 10/30/2024 8:20 AM CDT - 10/30/2024 1:24 PM CDT Surgery [facility] MAIN OR [address] [place] [address] Brie Durant M.D. [address] [place] [phone] BILATERAL SKIN SPARING MASTECTOMY 11/08/2024 10:00 AM CDT Comprehensive Visit Department of Oncology in [place], [place] [address] [place] [phone] Meghna Soto M.B., B.Ch. [address] [place] [phone] 11/08/2024 1:00 PM CDT Office Visit Division of Breast and Melanoma Surgical Oncology in [address] [phone] Geno Stevenson APRN, C.N.P., D.N.P. [address] [place] [phone] 11/13/2024 8:00 AM CDT Office Visit Division of Plastic Surgery in [address] [phone] Yoon Hamilton APRN, C.N.P., D.N.P. [address] [place] [phone] Scheduled Procedures Name Priority Associated Diagnoses Date/Ti [...] 8:20 AM CDT RECONSTRUCTION BREAST WITH TISSUE SOCIAL MEDIA MARKETING ANALYST 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) 10/30/2024 8:20 AM CDT documented as of this encounter Visit Diagnoses Not on filedocumented in this encounter Care Teams Denture Technician Relationship Specialty Start Date End Date Elsewhere, Pcp PCP - General Internal Medicine 07/25/24 documented as of this encounter
--- OUTSIDE RECORDS SUMMARY | 2024-10-13 22:15 | XMS_ITS | Clinical Summary ---
Author Organization [facility] Address [address] [place] [address] Care Team Providers Care Workers Compensation Claims Examiner Name Role Phone Elsewhere, Pcp Primary Care Provider Unavailabl e Source Comments Patient records contain information from all sites at [facility]. For routine questions regarding patient records, call [phone] during business hours, M-F 8:00 AM - 5:00 PM Central Time. Record requests for emergency care only can be directed to [phone] at any time.[facility] Allergies Active Allergy Reactions Criticality Noted Date Comments Amoxicillin-Pot Clavulanate Hives (Reselect Reaction) Low 08/24/2006 Penicillin allergy testing performed on 09/07/24 was negative. Avoid amoxicillin, ampicillin, and clavulanic acid. May use other penicillins and cephalosporins. Fd And C Red No.40 Nausea Only Low 10/02/2020 Morphine Itching 04/04/2013 Medications * This document contains information received from the source organization and may not represent a complete record from that organization. albuterol 90 mcg/actuation inhaler Inhale 2 puffs 4 (four) times a day as needed. 06/18/20[address] Active [address] tablet Take 81 mg by mouth daily. Active cholecalciferol (Vitamin D3) 25 mcg (1,000 Unit) capsule Take 1 capsule by mouth daily. 09/21/2017 Active citalopram (CeleXA) 10 mg tablet Take 1 tablet by mouth at bedtime. 07/04/2024 Active LORazepam (Ativan) 1 mg tablet Take 1 mg by mouth as needed. Prior to flying 06/28/2024 Active melatonin 1 mg tablet Take 1 tablet by mouth at bedtime. 01/17/2018 Active Active Problems Problem Noted Date Diagnosed Date Allergy Penicillin Antibiotic Personal History 0 09/07/2024 Malignant Neoplasm Of Breast Upper Outer Quadrant Female Right 08/23/2024 Cancer Staging:Clinical stage from 08/15/2024:Stage IA(cT1b, cN0, cM0, G2, ER+, AZ+, HER2-) - Unsigned Hypertension Essential Primary 07/25/2024 Dyspnea On Exertion 07/25/2024 Patent Foramen Ovale 07/25/2024 Migraine Headache 11/25/2011 Encounters * This document contains information received from the source organization and may not represent a complete record from that organization. Date Type Department Care Team Description 10/11/2024 1:00 PM SERVICE SUPERINTENDENT Office Visit Department of Neurology in [place], [place] [address] [place] [address] Kwesi Poole M.D. Patent Foramen Ovale (HCC) (Primary Dx) 10/09/2024 10:12 AM SERVICE SUPERINTENDENT - 10/09/2024 11:59 PM SERVICE SUPERINTENDENT Hospital Encounter Department of Cardiovascular Diseases in [place], [place] [address] [place] [phone] Tre Dumas M.D. Hypertension Essential Primary; Dyspnea On Exertion Discharge Disposition: Home or Self Care 10/09/2024 8:45 AM SERVICE SUPERINTENDENT - 10/09/2024 10:11 AM SERVICE SUPERINTENDENT Hospital Encounter Department of Laboratory Medicine and Pathology, [facility] in [place], [place] [address] [place] [phone] Tamika Santiago M.D. Patent Foramen Ovale (HCC) Discharge Disposition: Home or Self Care 09/27/2024 Orders Only Division of Breast and Melanoma Surgical Oncology in [place], [place] [address] [place] [phone] Gail Monterroso R.N. 09/21/2024 Clinical Communication Division of Plastic Surgery in [place], [place] [address] [place] [phone] Foster Mcclendon B.M., B.Ch., Ph.D. 09/19/2024 Orders Only Division of Breast and Melanoma Surgical Oncology in [place], [place] [address] [place] [address] Gail Monterroso R.N. 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) (Primary Dx) 09/18/2024 Results Follow-Up Division of General Internal Medicine in [place], [place] [address] [place] [phone] Bina Vasques M.D. MR Breast Biopsy Right with Guidance 09/18/2024 Orders Only Division of Breast and Melanoma Surgical Oncology in [place], [place] [address] [place] [address] Gail Monterroso R.N. 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) (Primary Dx) 09/15/2024 9:51 AM SERVICE SUPERINTENDENT - 09/15/2024 11:59 PM SERVICE SUPERINTENDENT Hospital Encounter Department of Radiology, [facility] in [place], [place] [address] [place] [address] Bina Vasques M.D. Abnormal Magnetic Resonance Imaging Breast; 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) Discharge Disposition: Home or Self Care 09/15/2024 9:45 AM SERVICE SUPERINTENDENT - 09/15/2024 9:50 AM SERVICE SUPERINTENDENT Hospital Encounter Department of Radiology, [facility] in [place], [place] [address] [place] [address] Bina Vasques M.D. Abnormal Magnetic Resonance Imaging Breast; 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) Discharge Disposition: Home or Self Care 09/15/2024 9:20 AM SERVICE SUPERINTENDENT - 09/15/2024 9:44 AM SERVICE SUPERINTENDENT Hospital Encounter Department of Radiology in [place], [place] [address] [place] [phone] Bina Vasques M.D. Abnormal Magnetic Resonance Imaging Breast; 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) Discharge Disposition: Home or Self Care 09/15/2024 9:17 AM SERVICE SUPERINTENDENT - 09/15/2024 9:19 AM SERVICE SUPERINTENDENT Hospital Encounter Department of Radiology, [facility], in [place], [place] [address] [place] [address] Bina Vasques M.D. Abnormal Magnetic Resonance Imaging Breast; 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) Discharge Disposition: Home or Self Care 09/15/2024 9:15 AM SERVICE SUPERINTENDENT - 09/15/2024 9:16 AM SERVICE SUPERINTENDENT Hospital Encounter Department of Radiology in [place], [place] [address] [place] [address] Bina Vasques M.D. Abnormal Magnetic Resonance Imaging Breast; 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) Discharge Disposition: Home or Self Care 09/11/2024 Orders Only Division of General Internal Medicine in [place], [place] [address] [place] [address] Bina Vasques M.D. Abnormal Magnetic Resonance Imaging Breast (Primary Dx); 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) 09/08/2024 8:15 AM SERVICE SUPERINTENDENT Comprehensive Visit Division of Breast and Melanoma Surgical Oncology in [place], [place] [address] [place] [address] Brie Durant M.D. 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) 09/07/2024 3:30 PM SERVICE SUPERINTENDENT Comprehensive Visit Division of Allergic Diseases in [place], [place] [address] [place] [address] Janice Menard P.A.-C., M.S. Allergy Penicillin Antibiotic Personal History (Primary Dx) 09/07/2024 2:45 PM SERVICE SUPERINTENDENT Clinical Support Division of Allergic Diseases in [place], [place] [address] [place] [address] Peggy Silvestre M.D., Ph.D. Annita Garcia, R.N. Allergy Penicillin Antibiotic Personal History 09/07/2024 1:00 PM SERVICE SUPERINTENDENT Comprehensive Visit [facility] Diagnostic Clinic in [place], [place] [address] [place] [address] Roxy Mayo, Ph.D., L.P. 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); Stress 09/06/2024 1:45 PM SERVICE SUPERINTENDENT - 09/06/2024 11:59 PM SERVICE SUPERINTENDENT Hospital Encounter Department of Radiology in [address] [phone] Peggy Silvestre M.D., Ph.D. Breast Examination Abnormal Discharge Disposition: Home or Self Care 09/06/2024 1:45 PM SERVICE SUPERINTENDENT - 09/06/2024 11:59 PM SERVICE SUPERINTENDENT Hospital Encounter Department of Radiology in [address] [phone] Peggy Silvestre M.D., Ph.D. Breast Examination Abnormal Discharge Disposition: Home or Self Care 09/05/2024 7:08 PM SERVICE SUPERINTENDENT - 09/05/2024 11:59 PM SERVICE SUPERINTENDENT Hospital Encounter Department of Radiology, [facility] in [address] [phone] Peggy Silvestre M.D., Ph.D. 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) Discharge Disposition: Home or Self Care 09/01/2024 1:13 PM SERVICE SUPERINTENDENT - 09/01/2024 11:59 PM SERVICE SUPERINTENDENT Hospital Encounter Department of Radiology, [facility] in [address] [phone] Tamika Santiago M.D. Patent Foramen Ovale (HCC) Discharge Disposition: Home or Self Care 09/01/2024 8:30 AM SERVICE SUPERINTENDENT Comprehensive Visit Breast Diagnostic Clinic in [address] [address] Bina Vasques M.D. 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) (Primary Dx); Anxiety; Patent Foramen Ovale (HCC) 08/23/2024 2:15 PM SERVICE SUPERINTENDENT Ancillary Procedure Department of Radiology in [address] [address] Adryan Conteh M.D. 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) 08/23/2024 2:10 PM SERVICE SUPERINTENDENT Ancillary Procedure Department of Radiology in [address] [phone] Adryan Conteh M.D. 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) 08/23/2024 11:20 AM SERVICE SUPERINTENDENT Lab [facility]ST [facility] [address] [place] [phone] Peggy Silvestre M.D., Ph.D. 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) 08/23/2024 9:30 AM SERVICE SUPERINTENDENT Clinical Communication Breast Diagnostic Clinic in [place], [place] [address] [place] [address] TECHNICAL SUPPORT 1 SOFTWARE ENGINEER MILLIE CALL 08/23/2024 Orders Only Breast Diagnostic Clinic in [place], [place] [address] [place] [address] Leonarda Ortiz L.P.N. 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) (Primary Dx) 08/20/2024 Documentation [facility] in [place], [place] [address] [place] [phone] Leonarda Ortiz LNataliaP.N. 08/10/2024 7:20 AM SERVICE SUPERINTENDENT - 08/10/2024 11:59 PM SERVICE SUPERINTENDENT Hospital Encounter Division of Cardiovascular Diseases in [place], [place] [address] [place] [address] Tre Dumas M.D. Hypertension Essential Primary; Other Dyspnea Discharge Disposition: Home or Self Care 07/27/2024 9:42 AM SERVICE SUPERINTENDENT - 07/27/2024 11:59 PM SERVICE SUPERINTENDENT Hospital Encounter Department of Cardiovascular Diseases in [place], [place] [address] [place] [address] Tre Dumas M.D. Hypertension Essential Primary; Dyspnea On Exertion Discharge Disposition: Home or Self Care 07/25/2024 10:41 AM SERVICE SUPERINTENDENT - 07/25/2024 11:59 PM SERVICE SUPERINTENDENT Hospital Encounter Department of Laboratory Medicine and Pathology, [facility] in [place], [place] [address] [place] [phone] Tre Dumas M.D. Hypertension Essential Primary; Dyspnea On Exertion Discharge Disposition: Home or Self Care 07/25/2024 10:15 AM SERVICE SUPERINTENDENT Comprehensive Visit Department of Cardiovascular Medicine in [place], [place] [address] [place] [address] Tre Dumas M.D. Patent Foramen Ovale (HCC) (Primary Dx); Hypertension Essential Primary; Dyspnea On Exertion; Migraine Headache 07/25/2024 9:15 AM SERVICE SUPERINTENDENT Comprehensive Visit Department of Neurology in [place], [place] [address] [place] [phone] Kwesi Poole M.D. Patent Foramen Ovale (HCC) (Primary Dx) 07/24/2024 9:00 AM SERVICE SUPERINTENDENT Clinical Communication Virtual Review in [place], [place] [address] [place] [address] Pre-visit Intake from Last 3 Months Social History Tobacco Use Types Packs/Day Years Used Date Smoking Tobacco: Never Passive Smoke Exposure: Past Smokeless Tobacco: Never Tobacco Cessation:Counseling Given: Not Answered Alcohol Use Standard Drinks/Week Comments Not Currently 0 (1 standard drink = 0.6 oz pur e alcohol) [facility] [employer] Answer Date Recorded In the past 12 months has [employer], [employer], oil, or water [facility] threatened to shut off services in your [...] Sex Assigned at Female 07/25/2024 9:49 AM SERVICE SUPERINTENDENT Legal Sex Female 6:01 PM SERVICE SUPERINTENDENT Gender Identity Female 07/25/2024 9:49 AM SERVICE SUPERINTENDENT Sexual Orientation Straight 07/25/2024 9: 49 AM SERVICE SUPERINTENDENT Last Filed Vital Signs Vital Sign Reading Time Taken Comments Blood Pressure 133/81 09/01/2024 8:05 AM SERVICE SUPERINTENDENT Pulse 72 09/01/2024 8:05 AM SERVICE SUPERINTENDENT Temperature - - Respiratory Rate 14 06/13/2013 1:22 PM CDT Vital sign result from Clinical Notes. Oxygen Saturation - - Inhaled Oxygen Concentration - - Weight 81.8 kg (180 lb 5.4 oz) 09/01/2024 8:05 AM SERVICE SUPERINTENDENT Height 165.6 cm (5' 5.2) 09/01/2024 8: 05 AM SERVICE SUPERINTENDENT Body Mass Index 29.83 09/01/2024 8:05 AM SERVICE SUPERINTENDENT Plan of Treatment Upcoming Encounters Date Type Department Care Team (Latest Contact Info) Description 10/16/2024 7:30 AM SERVICE SUPERINTENDENT Virtual Visit Department of Cardiovascular Medicine in [place], [place] [address] [place] [phone] Tre Dumas M.D. [address] [place] [phone] 10/19/2024 10:15 AM SERVICE SUPERINTENDENT Clinical Communication Virtual Review in [place], [place] [address] [place] [phone] 10/20/2024 11:00 AM SERVICE SUPERINTENDENT Comprehensive Visit Division of Plastic Surgery in [place], [place] [address] [place] [phone] Foster Mcclendon B.M., B.Ch., Ph.D. [address] [place] [phone] 10/20/2024 12:00 PM SERVICE SUPERINTENDENT Office Visit Division of Breast and Melanoma Surgical Oncology in [place], [place] [address] [place] [phone] Brie Durant M.D. [address] [place] [phone] 10/30/2024 7:30 AM CDT Appointment Department of Radiology, [facility], in [place], [place] [address] [place] [phone] Brie Durant M.D. [address] [place] [phone] Discharge Disposition: Home or Self Care 10/30/2024 8:20 AM CDT Hospital Encounter [facility] 01 4 AM ADMIT [address] [place] [phone] Brie Durant M.D. [address] [place] [phone] 10/30/2024 8:20 AM CDT - 10/30/2024 1:24 PM CDT Surgery [facility] MAIN OR [address] [place] [address] Brie Durant M.D. [address] [place] [phone] BILATERAL SKIN SPARING MASTECTOMY 11/08/2024 10:00 AM CDT Comprehensive Visit Department of Oncology in [place], [place] [address] [place] [phone] Meghna Soto M.B., B.Ch. [address] [place] [phone] 11/08/2024 1:00 PM CDT Office Visit Division of Breast and Melanoma Surgical Oncology in [place], [place] [address] [place] [phone] Geno Stevenson APRN, C.N.P., D.N.P. [address] [place] [phone] 11/13/2024 8:00 AM CDT Office Visit Division of Plastic Surgery in [place], [place] [address] [place] [phone] Yoon Hamilton APRN, C.N.P., D.N.P. 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 COREMAKER MACHINE 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) 10/30/2024 8:20 AM CDT Health Maintenance Due Date Last Done Comments CT Colonography 1970 Cervical/Vaginal Cancer Screening 1970 Cologuard 1970 FIT 1970 HIV Screening 1970 Hepatitis B Screening 1970 Hepatitis C Screening 1970 Lipid (Cholesterol) Screening 1970 Pneumococcal vaccine (50+ years) (1 of 1 - PCV) 2020 Zoster Vaccines (1 of 2) 2020 COVID-19 Vaccine (3 - 2023- season) 2024 12/27/2020, 12/06/2020 Influenza Vaccine (#1) 2024 8, 09/21/2017, 06/24/2016, Additional history exists Depression Screening (Annual PHQ-2) 08/16/2024 Mammogram 08/15/2025 08/15/2024, 07/17, 08/02/2024, Additional history exists Office Visit for Blood Pressure Check / Re-check 09/01/2025 09/01/2024 Fasting Glucose for Diabetes Screening 11/02/2025 11/02/2022, 06/16/2021, 06/22/2019 DTaP,Tdap,and Td Vaccines (3 - Td or Tdap) 09/27/2027 09/27/2017, 06/21/2007 Colonoscopy 02/01/2033 02/01/2023 Colorectal Cancer Screening 02/01/2033 Hepatitis B Vaccines Completed 11/25/2011, 11/03/2002, 12/13/1997 IPV Vaccines Aged Out No longer eligi ble based on patient's age to complete this topic Medical Devices Implanted Type Area Lift Builder Whole Device Identifier Shelf Expiration Date Model / Serial / Lot Imaging Marker-08/15 Implanted: (Quantity not on file) Imaging Marker Right: Breast Mrk Brst Biop Hyd Opn Cl - [id number] Implanted:Qt y: 1 on 09/15/2024 by Kj Wong M.D. at [facility] [employer] Imaging Marker Right: Breast Mammotome [id number] 06/08/2027 4009-08-23- T3 / / [id number] Mrk Brst Biop Atec Trm - [id number] Implanted:Qt y: 1 on 09/15/2024 by Kj Wong M.D. at [facility] [employer] Imaging Marker Right: Breast [employer] [id number] 04/18/2026 TRIMARKTD 13-MR / / [id number] Mrk Brst Biop Atec Trm - [id number] Implanted:Qt y: 1 on 09/15/2024 by Kj Wong M.D. at [facility] [employer] Imaging Marker Left: Breast [employer] Inc [id number] 04/18/2026 TRIMARKTD 13-MR / / [id number] Explanted Type Area Lift Builder Whole Device Identifier Shelf Expiration Date Model / Serial / Lot Misc Other Misc Other Left: Knee Description:Cadaver ACL impl anted Procedures Procedure Name Priority Date/Time Associated Diagnosis Comments (TTE) 2D ECHO DOPPLER COLOR AND CONTRAST Routine 10/09/2024 11:54 AM SERVICE SUPERINTENDENT Hypertension Essential Primary Dyspnea On Exertion PHOSPHOLIPID (CARDIOLIPIN) ABS, IGG AND IGM, S Routine 10/09/2024 8:59 AM SERVICE SUPERINTENDENT Patent Foramen Ovale (HCC) BETA-2 GLYCOPROTEIN 1 ABS, IGG AND IGM, S Routine 10/09/2024 8:59 AM SERVICE SUPERINTENDENT Patent Foramen Ovale (HCC) THROMBOPHILIA PROF Routine 10/09/2024 8: 59 AM SERVICE SUPERINTENDENT Patent Foramen Ovale (HCC) BI BREAST DIAGNOSTIC RIGHT POST PROCEDURE RAD - Routine (most inpatients and all outpatients) 09/15/2024 12:46 PM SERVICE SUPERINTENDENT Abnormal Magnetic Resonance Imaging Breast 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) BI BREAST DIAGNOSTIC LEFT POST PROCEDURE RAD - Routine (most inpatients and all outpatients) 09/15/2024 12:46 PM SERVICE SUPERINTENDENT Abnormal Magnetic Resonance Imaging Breast 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) MR BREAST BIOPSY LEFT WITH GUIDANCE RAD - Routine (most inpatients and all outpatients) 09/15/2024 12:30 PM SERVICE SUPERINTENDENT Abnormal Magnetic Resonance Imaging Breast 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) MR BREAST BIOPSY RIGHT ADDITIONAL LESION WITH GUIDE RAD - Routine (most inpatients and all outpatients) 09/15/2024 12:28 PM SERVICE SUPERINTENDENT Abnormal Magnetic Resonance Imaging Breast 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) MR BREAST BIOPSY RIGHT WITH GUIDANCE RAD - Routine (most inpatients and all outpatients) 09/15/2024 12:27 PM SERVICE SUPERINTENDENT Abnormal Magnetic Resonance Imaging Breast 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) SURGICAL PATHOLOGY Routine 09/15/2024 11:52 AM SERVICE SUPERINTENDENT Abnormal Magnetic Resonance Imaging Breast 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) SURGICAL PATHOLOGY Routine 09/15/2024 11:45 AM SERVICE SUPERINTENDENT Abnormal Magnetic Resonance Imaging Breast 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) SURGICAL PATHOLOGY Routine 09/15/2024 11:43 AM SERVICE SUPERINTENDENT Abnormal Magnetic Resonance Imaging Breast 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) EVENT MONITOR - ALL CHARGES Routine 09/09/2024 11:59 PM SERVICE SUPERINTENDENT Hypertension Essential Primary Other Dyspnea BI ULTRASOUND BREAST FOCUSED BILATERAL RAD - Routine (most inpatients and all outpatients) 09/06/2024 3:59 PM SERVICE SUPERINTENDENT Breast Examination Abnormal BI BREAST DIAGNOSTIC LEFT WITH TOMOSYNTHESIS RAD - Routine (most inpatients and all outpatients) 09/06/2024 2:18 PM SERVICE SUPERINTENDENT Breast Examination Abnormal MR BREAST BILATERAL WITHOUT AND WITH IV CONTRAST RAD - Routine (most inpatients and all outpatients) 09/05/2024 8:04 PM SERVICE SUPERINTENDENT 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) US LOWER EXTREMITY VEINS BILATERAL RAD - Routine (most inpatients and all outpatients) 09/01/2024 2:25 PM SERVICE SUPERINTENDENT Patent Foramen Ovale (HCC) INTERPRETATION OF OUTSIDE BREAST IMAGING RAD - Routine (most inpatients and all outpatients) 08/23/2024 2:28 PM SERVICE SUPERINTENDENT 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) INTERPRETATION OF OUTSIDE BREAST IMAGING RAD - Routine (most inpatients and all outpatients) 08/23/2024 2:28 PM SERVICE SUPERINTENDENT 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) OUTSIDE MG MAMMOGRAM Routine 08/15/2024 1:50 PM SERVICE SUPERINTENDENT PATHOLOGY REVIEW OF OUTSIDE MATERIAL Routine 08/15/2024 1:40 PM SERVICE SUPERINTENDENT 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) OUTSIDE US BREAST Routine 08/15/2024 12:00 AM SERVICE SUPERINTENDENT OUTSIDE MG MAMMOGRAM Routine 08/11/2024 1:40 PM SERVICE SUPERINTENDENT OUTSIDE US BREAST Routine 08/11/2024 1:1 5 PM SERVICE SUPERINTENDENT OUTSIDE MG MAMMOGRAM Routine 08/02/2024 12:00 AM SERVICE SUPERINTENDENT HOLTER MONITOR - IN CLINIC PONY ROLL FINISHER Routine 07/28/2024 2:58 PM SERVICE SUPERINTENDENT Hypertension Essential Primary Dyspnea On Exertion NT-PRO B-TYPE NATRIURETIC PEPTIDE (BNP), S Routine 07/25/2024 10:55 AM SERVICE SUPERINTENDENT Hypertension Essential Primary Dyspnea On Exertion from Last 3 Months Results * (TTE) 2D ECHO DOPPLER COLOR AND CONTRAST (10/09/2024 11:54 AM SERVICE SUPERINTENDENT) Ejection Fraction 65 MC CV EIMS Sinus [...] Laterality Modality Echocardiography 10/09/2024 10:3 3 AM SERVICE SUPERINTENDENT Impressions 10/09/2024 11:57 AM SERVICE SUPERINTENDENT LEFT VENTRICLE:Normal left ventricular chamber size. Abnormal [...] saline contrast injection. Patent foramen ovale with [id number] shunt , 30 or greater bubbles seen in the left-sided chambers with Valsalva Maneuver.(almost complete opacification of the left-sided cavities after Valsalva clip 115) No intracardiac mass or thrombus, but the left atrial appendage cannot be visualized adequately with transthoracic echo to exclude thrombus in this location. No pericardial effusion. For the complete report, see the Order-Level Documents. Narrative 10/09/2024 11:57 AM SERVICE SUPERINTENDENT For the complete report, see the Order-Level [...] agitated salinecontrast injection. Patent foramen ovale with [id number] shunt , 30 orgreater bubbles seen in the left-sided chambers with ValsalvaManeuver.(almost complete opacification of the left-sided cavities afterValsalva clip 115) No intracardiac mass or thrombus, but the left atrialappendage cannot be visualized adequately with transthoracic echo toexclude thrombus in this location. No pericardial effusion. For the complete report, see the Order-Level Documents. us Tre Dumas M.D. CV ECHO PROCEDURES Final Re sult * Thrombophilia Profile (10/09/2024 8:59 AM SERVICE SUPERINTENDENT) Prothrombin Time (PT), P 10.2 9.4 - 12.5 sec 10/09/2024 11:33 AM SERVICE SUPERINTENDENT DTL INR 0.9 0.9 - 1.1 10/09/2024 11:33 AM SERVICE SUPERINTENDENT DTL Comment: ----ADDITIONAL INFORMATION---- Standard intensity warfarin therapeutic range: 2.0 to 3.0 High intensity warfarin therapeutic range: 2.5 to 3.5 Activated Partial Thrombopl Time, P 26 25 - 37 sec 10/09/2024 11:34 AM SERVICE SUPERINTENDENT DTL DRVVT Screen Ratio 0.93 <1.20 ratio 10/09/2024 11:32 AM SERVICE SUPERINTENDENT DTL Thrombin Time (Bovine), P 22.9 15.8 - 24.9 sec 10/09/2024 11:32 AM SERVICE SUPERINTENDENT DTL Fibrinogen, Clauss, P 317 200 - 500 mg/dL 10/09/2024 10:58 AM SERVICE SUPERINTENDENT DTL Comment: ----ADDITIONAL INFORMATION---- This test has been modified from the medical officer psychiatry's instructions. Its performance characteristics were determined by [facility] in a manner consistent with CLIA requirements. This test has not been cleared or approved by the U.S. Food and Drug Administration. D-DIMER, P 321 <=500 ng/mL FEU 10/09/2024 11:33 AM SERVICE SUPERINTENDENT DTL Comment: ----ADDITIONAL INFORMATION---- D-dimer values less than or equal to 500 ng/mL fibrinogen equivalent units (FEU) may be used in conjunction with clinical pre-test probability to exclude deep vein thrombosis (DVT) and/or pulmonary embolism (PE). Antithrombin Activity, P 100 80 - 130 % 10/09/2024 11:05 AM SERVICE SUPERINTENDENT DTL Comment: ----ADDITIONAL INFORMATION---- This test has been modified from the medical officer psychiatry's instructions. Its performance characteristics were determined by [facility] in a manner consistent with CLIA requirements. This test has not been cleared or approved by the U.S. Food and Drug Administration. Protein C Activity, P 107 70 - 150 % 10/09/2024 11:30 AM SERVICE SUPERINTENDENT DTL Comment: ----ADDITIONAL INFORMATION---- This test has been modified from the medical officer psychiatry's instructions. Its performance characteristics were determined by [facility] in a manner consistent with CLIA requirements. This test has not been cleared or approved by the U.S. Food and Drug Administration. Protein S Ag, Free, P 135 65 - 160 % 10/09/2024 10:59 AM SERVICE SUPERINTENDENT DTL Comment: ----ADDITIONAL INFORMATION---- This test has been modified from the medical officer psychiatry's instructions. Its performance characteristics were determined by [facility] in a manner consistent with CLIA requirements. This test has not been cleared or approved by the U.S. Food and Drug Administration. APCRV Ratio 2.9 >or=2.3 10/09/2024 11:07 AM SERVICE SUPERINTENDENT DTL Reviewed By Padma Stone M.D. 10/11/2024 1:48 PM SERVICE SUPERINTENDENT DTL Prothrombin [id number] Mutation, B Negative Negative 10/11/2024 9:31 AM SERVICE SUPERINTENDENT DTL PTNT Reviewed By Capri Patel M.D. 10/11 9:31 AM SERVICE SUPERINTENDENT DTL PTNT Interpretation This individual DOES NOT have the Prothrombin F2 c.*97G>A (legacy numbering [id number]) variant. Although the Prothrombin (F2 c.*97G>A) variant is absent, this individual may have other genetic and environmental risk factors for thrombosis. If indicated, consider genetic consultation and counseling for this individual and potentially affected family members regarding laboratory testing. 10/11/2024 9:31 AM SERVICE SUPERINTENDENT DTL Comment: ----ADDITIONAL INFORMATION---- This test uses [...] developed and its performance characteristics determined by [facility] in a manner consistent with CLIA requirements. This test has not been cleared or approved by the U.S. Food and Drug Administration. Thrombophilia Interpretation IMPRESSION: No identifiable congenital or acquired thrombotic diathesis (thrombophilia) within limitations of current test repertoire. COMMENTS: No evidence of resistance to activated protein C (APC). Therefore, DNA-based testing for the factor V Leiden F5 c.1601G>A; p.Mtl440Wna (legacy numbering Its602Goc) variant was not performed. A normal APC resistance ratio has a greater than 99% negative predictive value for factor V Leiden, F5 c.1601G>A; p.Xtz161Juc variant. No evidence of lupus anticoagulant (LAC), dysfibrinogenem ia, intravascular coagulation and fibrinolysis (ICF/DIC). No deficiencies of antithrombin, protein C, or protein S. DNA-based testing demonstrates that this individual DOES NOT have the Prothrombin F2 c.*97G>A (legacy numbering [id number]) variant. Separately performed and reported testing demonstrates normal serum anticardiolipin antibodies and beta-2 glycoprotein I antibodies (IgG and IgM). This testing was performed at [facility] (CLIA Number [id number]), [address] [place] [id number]. 10/11/2024 1:48 PM SERVICE SUPERINTENDENT DTL Blood (Blood, Venous) 10/09/2024 8:59 AM SERVICE SUPERINTENDENT 10/09/2024 9:29 AM SERVICE SUPERINTENDENT Narrative [facility] - 10/11/2024 1:48 PM SERVICE SUPERINTENDENT Specimen Information: Specimen ID: [id number] Specimen Type: Blood Specimen Collection Start Date: 10/09/2024 8:59 AM Specimen Received Date: 10/09/2024 9:29 AM Specimen ID: [id number] Specimen Type: Blood Specimen Collection Start Date: 10/09/2024 8:59 AM Specimen Received Date: 10/09/2024 9:29 AM Specimen ID: [id number] Specimen Type: Blood Specimen Collection Start Date: 10/09/2024 8:59 AM Specimen Received Date: 10/09/2024 9:29 AM Specimen ID: [id number] Specimen Type: Blood Specimen Collection Start Date: 10/09/2024 8:59 AM Specimen Received Date: 10/09/2024 9:55 AM Specimen ID: [id number] Specimen Type: Blood Specimen Collection Start Date: 10/09/2024 8:59 AM Specimen Received Date: 10/09/2024 9:29 AM Specimen ID: [id number] Specimen Type: Blood Specimen Collection Start Date: 10/09/2024 9:00 AM Specimen Received Date: 10/09/2024 9:29 AM Tamika Santiago M.D. LAB BLOOD NON ADD-ON Final Re sult Performing Organization Address City/[facility]/ZIP Co de Phone Number [facility] [address] [place] [address], [facility] [address] [place] [address] [facility] [address] [facility] [address] [place] [address] * Beta-2 Glycoprotein 1 Antibodies, IgG and IgM (10/09/2024 8:59 AM SERVICE SUPERINTENDENT) Beta 2 GP1 Ab IgG, S <9.4 <15.0 (Negative) SGU 10/10/2024 3:07 PM SERVICE SUPERINTENDENT SDS Beta 2 GP1 Ab IgM, S <9.4 <15.0 (Negative) U 10/10/2024 3:07 PM SERVICE SUPERINTENDENT [facility] Blood (Blood, Venous) 10/09/2024 8:59 AM SERVICE SUPERINTENDENT 10/09/2024 11:52 AM SERVICE SUPERINTENDENT Tamika Santiago M.D. LAB BLOOD ADD-ON Final Result [facility] [address] [place] [address] [facility] [address] [place] [address] * Phospholipid (Cardiolipin) Antibodies, IgG and IgM (10/09/2024 8:59 AM SERVICE SUPERINTENDENT) Phospholipid Ab IgM, S <9.4 <15.0 (Negative) MPL 10/10/2024 7:20 PM SERVICE SUPERINTENDENT SDS Phospholipid Ab IgG, S <9.4 <15.0 (Negative) GPL 10/10/2024 7:20 PM SERVICE SUPERINTENDENT [facility] Blood (Blood, Venous) 10/09/2024 8:59 AM SERVICE SUPERINTENDENT 10/09/2024 12:24 PM SERVICE SUPERINTENDENT us Tamika Santiago M.D. LAB BLOOD ADD-ON Final Result [facility] [address] [place] [address] [facility] [address] [place] [address] * BI Breast Diagnostic Right Post Procedure (09/15/2024 12:46 PM SERVICE SUPERINTENDENT) Anatomical Region Laterality Modality Breast, Breast Imaging RST L OS, Breast Imaging ARZ LOS, Breast Imaging FLA LOS Right Mammography Impressions 09/15/2024 1:35 PM SERVICE SUPERINTENDENT The biopsy clips are in the appropriate position. RECOMMENDATION: Please See Recent Biopsy Report ASSESSMENT: 12: Post Procedure Mammograms for Marker Placement Narrative 09/15/2024 1:35 PM SERVICE SUPERINTENDENT EXAM: BI BREAST DIAGNOSTIC RIGHT POST PROCEDURE INDICATION: Post procedure mammogram COMPARISON: Prior exam(s) were available and reviewed for comparison. DENSITY: c. The breast(s) are heterogeneously dense, which may obscure small masses. FINDINGS: Cylinder biopsy clip in appropriate position in the subareolar right breast. Open coil biopsy clip in appropriate position in the slightly lower central right breast middle depth. Vision clip from prior biopsy also seen in the outer breast. Procedure Note Kj Wong M.D. - 09/15/2024 EXAM: BI BREAST DIAGNOSTIC RIGHT POST PROCEDURE INDICATION: Post procedure mammogram COMPARISON: Prior exam(s) were available and reviewed for comparison. DENSITY: c. The breast(s) are heterogeneously dense, which may obscuresmall masses. FINDINGS: Cylinder biopsy clip in appropriate position in the subareolarright breast. Open coil biopsy clip in appropriate position in theslightly lower central right breast middle depth. Vision clip from priorbiopsy also seen in the outer breast. IMPRESSION: The biopsy clips are in the appropriate position. RECOMMENDATION: Please See Recent Biopsy Report ASSESSMENT: 12: Post Procedure Mammograms for Marker Placement Bina Vasques M.D. IMG BI PROCEDURES Final Res ult * BI Breast Diagnostic Left Post Procedure (09/15/2024 12:46 PM SERVICE SUPERINTENDENT) Anatomical Region Laterality Modality Breast, Breast Imaging RST L OS, Breast Imaging ARZ LOS, Breast Imaging FLA LOS Left Mammography Impressions 09/15/2024 1:24 PM SERVICE SUPERINTENDENT The biopsy clip is in the appropriate position. RECOMMENDATION: Please See Recent Biopsy Report ASSESSMENT: 12: Post Procedure Mammograms for Marker Placement Narrative 09/15/2024 1:24 PM SERVICE SUPERINTENDENT EXAM: BI BREAST DIAGNOSTIC LEFT POST PROCEDURE [...] 12: Post Procedure Mammograms for Marker Placement us Bina Vasques M.D. IMKatie BI PROCEDURES Final Res ult * MR Breast Biopsy Left with Guidance (09/15/2024 12:30 PM SERVICE SUPERINTENDENT) Anatomical Region Laterality Modality Breast, Breast Imaging RST L OS, Breast Imaging ARZ LOS, Breast Imaging FLA LOS Left Magnetic Resonance Addenda Addendum by Kj Wong M.D. on 09/19/2024 1:37 PM SERVICE SUPERINTENDENT ADDENDUM: AMENDMENT TO ADD PATHOLOGY AND CONCORDANCE RESULTS. PLEASE SEE SEPARATE PATHOLOGY REPORT FOR COMPLETE INFORMATION. 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 CATEGORY: Malignant RAD-PATH CONCORDANCE: Yes. ACR COMPLICATIONS: None. RECOMMENDATION: Surgical Consult Multidisciplinary management recommended for bilateral breast cancer. ASSESSMENT: 10: Pathology Malignant. Impressions 09/15/2024 12:45 PM SERVICE SUPERINTENDENT Successful image-guided needle biopsy. When final pathology results are available a revised report will be issued which will include radiologic/pathologic concordance and recommendations. Please be aware that in discordant cases, surgical consultation may be recommended even with a benign pathology result. RECOMMENDATION: Waiting for Pathology ASSESSMENT: 7: Waiting for Pathology. EP Narrative 09/15/2024 12:45 PM SERVICE SUPERINTENDENT EXAM: MR BREAST BIOPSY LEFT WITH GUIDANCE [...] medications. 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 Ready to learn, no apparent learning barriers [...] medications. 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 Ready to learn, noapparent learning barriers were [...] Pathology ASSESSMENT: 7: Waiting for Pathology. EP Bina Vasques M.D. Katie MRI PROCEDURES Edited R esult - Final * MR Breast Biopsy Right Additional Lesion with Guide (09/15/2024 12:28 PM SERVICE SUPERINTENDENT) Anatomical Region Laterality Modality Breast, Breast Imaging RST L OS, Breast Imaging ARZ LOS, Breast Imaging FLA LOS Right Magnetic Resonance Addenda Addendum by Kj Wong M.D. on 09/18/2024 2:39 PM SERVICE SUPERINTENDENT ADDENDUM: AMENDMENT TO ADD PATHOLOGY AND CONCORDANCE RESULTS. PLEASE SEE SEPARATE PATHOLOGY REPORT FOR COMPLETE INFORMATION. PATHOLOGY: Fibrocystic changes including dilated ducts, fragment suggestive of intraductal papilloma, focal usual ductal hyperplasia and background dense stromal fibrosis. CATEGORY: Benign RAD-PATH CONCORDANCE: Yes. ACR COMPLICATIONS: None. RECOMMENDATION: Individualized Recommendation Multidisciplinary management recommended for known right breast cancer. ASSESSMENT: 8: Pathology Benign. Impressions 09/15/2024 12:57 PM SERVICE SUPERINTENDENT Successful image-guided needle biopsy. When final pathology results are available a revised report will be issued which will include radiologic/pathologic concordance and recommendations. Please be aware that in discordant cases, surgical consultation may be recommended even with a benign pathology result. RECOMMENDATION: Waiting for Pathology ASSESSMENT: 7: Waiting for Pathology. EP Narrative 09/15/2024 12:57 PM SERVICE SUPERINTENDENT EXAM: MR BREAST BIOPSY RIGHT ADDITIONAL LESION [...] medications. 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 Ready to learn, no apparent learning barriers were identified. Post-procedure care explained; patient expressed understanding of the content. Bina AMBROCIO MRI PROCEDURES Edited R esult - Final * MR Breast Biopsy Right with Guidance (09/15/2024 12:27 PM SERVICE SUPERINTENDENT) Anatomical Region Laterality Modality Breast, Breast Imaging RST L OS, Breast Imaging ARZ LOS, Breast Imaging FLA LOS Right Magnetic Resonance Addenda Addendum by Kj Wong M.D. on 09/18/2024 2:22 PM SERVICE SUPERINTENDENT ADDENDUM: AMENDMENT TO ADD PATHOLOGY AND CONCORDANCE RESULTS. PLEASE SEE SEPARATE PATHOLOGY REPORT FOR COMPLETE INFORMATION. PATHOLOGY: Invasive lobular carcinoma, preliminary [place] grade II (of III), measuring 4 mm in greatest linear extent. Lobular carcinoma in situ (LCIS), classic and focal pleomorphic types. CATEGORY: Malignant RAD-PATH CONCORDANCE: Yes. ACR COMPLICATIONS: None. RECOMMENDATION: Surgical Consult ASSESSMENT: 10: Pathology Malignant. Impressions 09/15/2024 12:45 PM SERVICE SUPERINTENDENT Successful image-guided needle biopsy. When final pathology results are available a revised report will be issued which will include radiologic/pathologic concordance and recommendations. Please be aware that in discordant cases, surgical consultation may be recommended even with a benign pathology result. RECOMMENDATION: Waiting for Pathology ASSESSMENT: 7: Waiting for Pathology. EP Narrative 09/15/2024 12:45 PM SERVICE SUPERINTENDENT EXAM: MR BREAST BIOPSY RIGHT WITH GUIDANCE [...] medications. 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 Ready to learn, no apparent learning barriers [...] medications. 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 Ready to learn, noapparent learning barriers were [...] Pathology ASSESSMENT: 7: Waiting for Pathology. EP Bina Vasques M.D. IMG MRI PROCEDURES Edited R esult - Final * Surgical Pathology (09/15/2024 11:52 AM SERVICE SUPERINTENDENT) Only the most recent of3 resultswithin the time period is included. 09/18/2024 2:20 PM SERVICE SUPERINTENDENT DTL Participated in the Interpretation Colten Cagle M.D.-Pathology Resident 09/18/2024 2:20 PM SERVICE SUPERINTENDENT DTL Report electronically signed by Chris GilbertB.S., Ph.D. I verify that I have examined all relevant slides/materials for the specimen(s) and rendered or confirmed the diagnosis. Seen in consultation with: Carly Durbin M.D. 09/18/2024 2:20 PM SERVICE SUPERINTENDENT DTL Gross Description Received in formalin labeled with patient's name, medical record number, and breast, right, site 2 are multiple pale rutherford fibroadiposetissue cores and three fragments, ranging from 0.1-1.7 cm in length and measuring 0.3 cm in average diameter. The specimens aresubmitted EN toto as follows: A1-A6: Two cores in each cassette A7: Three fragments Grossed by LMB. 09/18/2024 2:20 PM SERVICE SUPERINTENDENT DTL Interpretation FINAL DIAGNOSIS Breast, Right site [...] assessment of this case. 09/18/2024 2:20 PM SERVICE SUPERINTENDENT DTL Biopsy (Breast, Right) 09/15/2024 9:47 AM SERVICE SUPERINTENDENT Bina Vasques M.D. LAB SURG PATH ORDERABLES Fi nal Result [facility] [address] [place], [place] [address] [address] [facility] [address] [place] [address] * EVENT MONITOR - ALL CHARGES (09/09/2024 11:59 PM SERVICE SUPERINTENDENT) 08/11/2024 10:5 2 PM SERVICE SUPERINTENDENT Narrative LEANNA ARGUETA - 09/10/2024 12:40 PM SERVICE SUPERINTENDENT 1. The patient was monitored from 08/11/2024 to 09/09/2024. The baseline rhythm was sinus. 2. Premature ventricular complexes were seen singly. There was one 9-beat run of ventricular tachycardia seen at 178 bpm. 3. Premature atrial complexes were seen singly, paired, and with aberrant conduction. There was one 9-beat run of supraventricular tachycardia seen at 116 bpm. 4. The patient reported 2 symptomatic events; however, the patient did not define specific symptoms. During these events, the rhythm was sinus. The heart rate varied from 91 bpm to 109 bpm. At or around these times, one 9-beat run of supraventricular tachycardia was noted at 116 bpm. Painter Set: LINDA Roland / LINDA Farooq Procedure Note Jose Kelly M.D. - 09/10/2024 1. The patient was monitored from 08/11/2024 to 09/09/2024. The baselinerhythm was sinus. 2. Premature ventricular complexes were seen singly. There was one 9-beatrun of ventricular tachycardia seen at 178 bpm. 3. Premature atrial complexes were seen singly, paired, and with aberrantconduction. There was one 9-beat run of supraventricular tachycardia seenat 116 bpm. 4. The patient reported 2 symptomatic events; however, the patient did notdefine specific symptoms. During these events, the rhythm was sinus. Theheart rate varied from 91 bpm to 109 bpm. At or around these times, one9-beat run of supraventricular tachycardia was noted at 116 bpm. Painter Set: LINDA Roland / LINDA Farooq Tre Dumas M.D. CV CARDIAC SERVICES PROCEDU RES Final Result LEANNA ARGUETA NA * BI Ultrasound Breast Focused Bilateral (09/06/2024 3:59 PM SERVICE SUPERINTENDENT) Anatomical Region Laterality Modality Breast, Breast Imaging RST L OS, Breast Imaging ARZ LOS, Breast Imaging FLA LOS Bilateral Ultrasound Impressions 09/06/2024 4:18 PM SERVICE SUPERINTENDENT 1. Left breast asymmetry corresponding to overlapping [...] BI-RADS: 1: Negative. Narrative 09/06/2024 4:18 PM SERVICE SUPERINTENDENT EXAM: BI BREAST DIAGNOSTIC LEFT WITH TOMOSYNTHESIS, [...] alter clinical management. ASSESSMENT: BI-RADS: 1: Negative. Peggy Silvestre M.D., Ph.D. IMG BI PROCEDURES Fi nal Result * BI Breast Diagnostic Left with Tomosynthesis (09/06/2024 2:18 PM SERVICE SUPERINTENDENT) Anatomical Region Laterality Modality Breast, Breast Imaging RST L OS, Breast Imaging ARZ LOS, Breast Imaging FLA LOS Left Mammography Impressions 09/06/2024 4:18 PM SERVICE SUPERINTENDENT 1. Left breast asymmetry corresponding to overlapping [...] BI-RADS: 1: Negative. Narrative 09/06/2024 4:18 PM SERVICE SUPERINTENDENT EXAM: BI BREAST DIAGNOSTIC LEFT WITH TOMOSYNTHESIS, [...] alter clinical management. ASSESSMENT: BI-RADS: 1: Negative. Peggy Silvestre M.D., Ph.D. IMG BI PROCEDURES Fi nal Result * (ABNORMAL) MR Breast Bilateral without and with IV Contrast (09/05/2024 8:04 PM SERVICE SUPERINTENDENT) Anatomical Region Laterality Modality Breast, Breast Imaging RST L OS, Breast Imaging ARZ LOS, Breast Imaging FLA LOS Bilateral Magnetic Resonance Impressions 09/06/2024 12:19 PM SERVICE SUPERINTENDENT 1. Biopsy-proven malignancy in the 10:00 right [...] BI-RADS: 4: Suspicious. Narrative 09/06/2024 12:19 PM SERVICE SUPERINTENDENT EXAM: MR BREAST BILATERAL WITHOUT AND WITH [...] biopsy is recommended. ASSESSMENT: BI-RADS: 4: Suspicious. Peggy Silvestre M.D., Ph.D. IMG MRI PROCEDURES F inal Result * US Lower Extremity Veins Bilateral (09/01/2024 2:25 PM SERVICE SUPERINTENDENT) Anatomical Region Laterality Modality Lower Extremity, Ultrasound RST LOS, Ultrasound ARZ LOS, Ultrasound FLA LOS Bilateral Ultrasound Impressions 09/01/2024 2:30 PM SERVICE SUPERINTENDENT Negative for acute DVT within both lower extremities. Narrative 09/01/2024 2:30 PM SERVICE SUPERINTENDENT EXAM: US LOWER EXTREMITY VEINS BILATERAL Exam [...] and management can be found on the [facility] site. Link [email or web address] Procedure Note Sarah Chase M.D. - 09/01/2024 [...] thrombosis and management can be found on the[facility] site. [email or web address] IMPRESSION: Negative for acute DVT within both lower extremities. us Tamika Santiago M.D. IMG US PROCEDURES Final Resul t * Interpretation of Outside Breast Imaging (08/23/2024 2:28 PM SERVICE SUPERINTENDENT) Only the most recent of2 resultswithin the time period is included. Anatomical Region Laterality Modality Breast, Breast Imaging RST L OS, Breast Imaging ARZ LOS, Breast Imaging FLA LOS, Other N/A Mammography Impressions 08/29/2024 11:46 AM SERVICE SUPERINTENDENT Right breast biopsy-proven cancer with vision biopsy marker in good position. Left inner breast asymmetry for which left diagnostic mammogram is recommended. Right axillary ultrasound to further evaluate right axillary lymph nodes is also recommended. Narrative 08/29/2024 11:46 AM SERVICE SUPERINTENDENT EXAM: INTERPRETATION OF OUTSIDE BREAST IMAGING, INTERPRETATION OF OUTSIDE BREAST IMAGING HISTORY/INDICATION: Newly diagnosed right breast cancer ([place] pathology review pending). DENSITY: c. The breast(s) are heterogeneously dense, which may obscure small masses. FINDINGS: Bilateral mammogram 08/02/2024: Right breast upper-outer quadrant, mid third depth spiculated mass which persists on additional mammographic views performed on 08/11/2024 with sonographic correlate described below. Left inner breast, posterior third depth 0.7 cm asymmetry seen only on the CC view (CC 36). Further evaluation with left diagnostic mammogram is recommended. Right breast ultrasound 08/11/2024: Right breast 10 o'clock axis, 8 cm from nipple hypoechoic spiculated mass measuring 0.9 x 0.6 x 0.9 cm, corresponding to the mammographic finding.. This mass underwent ultrasound-guided biopsy on 08/15/2024 yielding invasive lobular carcinoma per outside report. On post biopsy mammogram a vision shaped biopsy marker is seen in the expected location. Procedure Note Bridger Jacobson M.D. - 08/29/2024 EXAM: INTERPRETATION OF OUTSIDE BREAST IMAGING, INTERPRETATION OF OUTSIDEBREAST IMAGING HISTORY/INDICATION: Newly diagnosed right breast cancer ([place] pathology[place] pending). DENSITY: c. The breast(s) are heterogeneously dense, which may obscuresmall masses. FINDINGS: Bilateral mammogram 08/02/2024: Right breast upper-outer quadrant, mid third depth spiculated mass whichpersists on additional mammographic views performed on 08/11/2024 withsonographic correlate described below. Left inner breast, posterior third depth 0.7 cm asymmetry seen only on theCC view (CC 36). Further evaluation with left diagnostic mammogram isrecommended. Right breast ultrasound 08/11/2024: Right breast 10 o'clock axis, 8 cm from nipple hypoechoic spiculated massmeasuring 0.9 x 0.6 x 0.9 cm, corresponding to the mammographic finding..This mass underwent ultrasound-guided biopsy on 08/15/2024 yieldinginvasive lobular carcinoma per outside report. On post biopsy mammogram a vision shaped biopsy marker is seen inthe expected location. IMPRESSION: Right breast biopsy-proven cancer with vision biopsy marker in goodposition. Left inner breast asymmetry for which left diagnostic mammogram isrecommended. Right axillary ultrasound to further evaluate right axillary lymph nodesis also recommended. Adryan Conteh M.D. IMG BI PROCEDURES Final Re sult * XR MAMMO POST CLIP PLCMT RT-Outside Mammogram (08/15/2024 1:50 PM SERVICE SUPERINTENDENT) Only the most recent of3 resultswithin the time period is included. Narrative [facility] - 08/23/2024 1:52 PM SERVICE SUPERINTENDENT This order has been created and auto-finalized to support the import of outside images. If available, original interpretation can be found on the Media Tab in Chart Review, in Document Viewer, as an image in QREADS or as an Addendum. If a re-interpretation or overread is required please follow defined workflow. Provider Not In System IMG BI PROCEDURES Final R esult [facility] NA * Pathology Review of Outside Material (08/15/2024 1:40 PM SERVICE SUPERINTENDENT) 08/29/2024 11:18 AM SERVICE SUPERINTENDENT DTL Report electronically signed by Epifanio Rebolledo M.D. I verify that I have examined all relevant slides/materi als for the specimen(s) and rendered or confirmed the diagnosis. 08/29/2024 11:18 AM SERVICE SUPERINTENDENT DTL Material Received A. [id number]: Breast, right 9 stained slides 08/29/2024 11:18 AM SERVICE SUPERINTENDENT DTL Interpretation FINAL DIAGNOSIS Breast, right, 10:00, 8 cm from nipple, vision clip, ultrasound-gu ided core biopsy ([id number]; 08/15/2024): - Invasive lobular carcinoma, [place] grade II (of III) - Lobular carcinoma in situ, classic type Immunohistoch emical stains reviewed at [facility] demonstrate: E-cadherin: Loss of membranous staining in lobular neoplasia ER: Positive, 91-100% of tumor nuclei staining, strong intensity [place]: Positive, 91-100% of tumor nuclei staining, strong intensity Ki-67: 5-10% HER2: Negative, score of 1+ Digital imaging was used in the diagnostic assessment of this case. 08/29/2024 11:18 AM SERVICE SUPERINTENDENT DTL Varies 08/15/2024 1:40 PM SERVICE SUPERINTENDENT 08/25/2024 11:28 AM SERVICE SUPERINTENDENT Peggy Silvestre M.D., Ph.D. LAB SURG PATH ORDERA BLES Final Result Performing Organization Address City/[facility]/ZIP Co de Phone Number [facility] [address] [place] [address], [facility] 200 [facility] 200 [place] [address] * US BIOPSY BREAST NEEDLE W EPIFANIO W GUIDE RIGHT-Outside US Breast (08/15/2024 12:00 AM SERVICE SUPERINTENDENT) Only the most recent of2 resultswithin the time period is included. Narrative [facility]IM[facility] - 08/23/2024 1:53 PM SERVICE SUPERINTENDENT This order has been created and auto-finalized to support the import of outside images. If available, original interpretation can be found on the Media Tab in Chart Review, in Document Viewer, as an image in QREADS or as an Addendum. If a re-interpretation or overread is required please follow defined workflow. us Provider Not In System IMG BI PROCEDURES Final R esult [facility] NA * HOLTER MONITOR - IN CLINIC PONY ROLL FINISHER (07/28/2024 2:58 PM SERVICE SUPERINTENDENT) Min Heart Rate 61 bpm INFOB IONIC MOME Max Heart Rate 99 bpm INFOB IONIC MOME Mean Heart Rate 75 bpm INFOBIONIC MOME VE Total Beats 0 count INFOB IONIC MOME VE Percent Beats less than 1 percent INFOBIONIC MOME SVE Total Beats 8 count INFOBIONIC MOME SVE Percent Beats less than 1 percent INFOBIONIC MOME AF Count 0 count INFOBIONIC MOME AF Duration 0 duration INFOBION IC MOME AF [place] 0 percent INFOBIONIC MOME Symptom Count 1 count INFOBI ONIC MOME 07/27/2024 9:50 AM SERVICE SUPERINTENDENT Narrative INFOBIONIC MOME - 08/09/2024 10:12 AM SERVICE SUPERINTENDENT 1. The basic rhythm was sinus. The total analyzed time was 13h 16m. The heart rate varied from 61 to 99 bpm. The average HR was 75 bpm. 2. No premature ventricular complexes were noted. 3. Premature supraventricular complexes were noted singly. There were 8 PACs recorded with a PAC burden of less than 1%. 4. A total of 1 symptomatic event was noted, which included shortness of breath and dizziness. The basic rhythm was sinus. The heart rate was 105 bpm. No ectopy was noted. Painter Set: LINDA Laguna/ LINDA Berg A Holter monitor with cascade to extended monitoring was ordered for the indication of Atrial fibrillation or flutter for evaluation of cryptogenic stroke. During the Holter monitoring period, the patient did not have atrial fibrillation or flutter >=30 seconds. Therefore, the study was cascaded to extended monitoring. Procedure Note Jose Kelly M.D. - 08/09/2024 1. The basic rhythm was sinus. The total analyzed time was 13h 16m. Theheart rate varied from 61 to 99 bpm. The average HR was 75 bpm. 2. No premature ventricular complexes were noted. 3. Premature supraventricular complexes were noted singly. There were 8PACs recorded with a PAC burden of less than 1%. 4. A total of 1 symptomatic event was noted, which included shortness ofbreath and dizziness. The basic rhythm was sinus. The heart rate was 105bpm. No ectopy was noted. Painter Set: LINDA Laguna/ LINDA Berg A Holter monitor with cascade to extended monitoring was ordered for theindication of Atrial fibrillation or flutter for evaluation of cryptogenicstroke. During the Holter monitoring period, the patient did not haveatrial fibrillation or flutter >=30 seconds. Therefore, the study was cascaded to extended monitoring. us Tre Dumas M.D. CV CARDIAC SERVICES PROCEDU RES Final Result Performing Organization Address City/[facility]/ZIP Co de Phone Number LEANNA HALEY * NT-Pro B-Type Natriuretic Peptide (BNP) (07/25/2024 10:55 AM SERVICE SUPERINTENDENT) [facility] NT-Pro BNP 52 <=141 pg/mL 07/25/2024 12:07 PM SERVICE SUPERINTENDENT DTL Comment: NT-proBNP values less than 300 pg/mL have a 99% negative predictive value for excluding acute congestive heart failure. A cutoff of 1200 pg/mL for patients with an eGFR<60 yields a diagnostic sensitivity and specificity of 89% and 72% for acute congestive heart failure. A diagnostic NT-proBNP cutoff of 900 pg/mL has been suggested in adults 50-75 years of age in the absence of renal failure. Blood (Blood, Venous) 07/25/2024 10:55 AM SERVICE SUPERINTENDENT 07/25/2024 11:32 AM SERVICE SUPERINTENDENT us Tre Dumas M.D. LAB BLOOD ADD-ON Final Resu lt [facility] [address] [place] [address], [place] DTL [facility] [address] [place] [address] from Last 3 Months Insurance [facility] Care Teams Workers Compensation Claims Examiner Relationship Specialty Start Date End Date Elsewhere, Pcp PCP - General Internal Medicine 07/25/24
--- OUTSIDE RECORDS SUMMARY | 2024-10-13 22:15 | XMS_ITS | Clinical Summary ---
Author Organization [facility] Address [address] [place] [address] Care Team Providers Care Amortization Schedule Clerk Name Role Phone Shanelle Renee Primary Care Provider [phone] Allergies Active Allergy Reactions Criticality Noted Date [...] COLONOGRAPHY 1970 FIT 1970 FLEX SIG 1970 sDNA (Cologuard) 1970 YEARLY PREVENTIVE VISIT 1973 COLONOSCOPY 1980 COLORECTAL CANCER SCREENING 1980 HIV SCREENING 1985 HEPATITIS C SCREENING 1988 PAP 1991 LIPID 2010 Pneumococcal Vaccine: 50+ Years (1 of 1 - PCV) 2020 ZOSTER IMMUNIZATION (1 of 2) 2020 COVID-19 Vaccine (3 - season) 2024 12/27/2020, 12/06/2020 INFLUENZA VACCINE (#1) 2024 8, 09/21/2017, 06/24/2016, Additional history exists MAMMO SCREENING 07/29/2024 07/29/2022 PHQ-2 (once per calendar year) 2024 GLUCOSE 11/02/2025 11/02/2022 DTAP/TDAP/TD IMMUNIZATION (3 - [...] - BLOOD ORDERABLES Final Re sult LABORATORY [facility] [address] 1st floor, [address] [place] [address], [facility] [phone] from Last 3 Months or Most Recently Relevant to Health Maintenance Care Teams Amortization Schedule Clerk Relationship Specialty Start Date End Date Shanelle Renee [address] [place] [address] PCP - General Family Medicine 11/02/22
== END 2024-10-13 22:48 | disposition home or self-care (01) ==
PROVIDERS: Emergency Provider Emergency Medicine; PCP Family Medicine
DX: S60.222A Contusion of left hand, initial encounter (principal); W22.01XA Walked into wall, initial encounter; Y93.41 Activity, dancing
CPT/HCPCS: 73130; 99282; 99283

== ENCOUNTER 2024-12-06 20:51 | Emergency (ER) | payer BC, SELFPAY ==
[2024-12-06] VITALS (22 sets, daily range): BP systolic 137–166; BP diastolic 84–110; PULSE 56–81; RESP 10–23; TEMP 36.2; O2SAT 82–98
--- OUTSIDE RECORDS SUMMARY | 2024-12-06 20:54 | XMS_ITS | Encounter Summary ---
Author Organization [facility] Address [address] [place] [address] Care Team Providers Care Mold Sprayer Name Role Phone Elsewhere, Pcp Primary Care Provider Unavailabl e Encounter Details Date Type Department Care Team (Late st Contact Info) Description 11/02/2024 Clinical Communication Division of Breast and Melanoma Surgical Oncology in [place], [place] [address] [place] [address] Brie Durant M.D. [address] [place] [phone] Social History Tobacco Use Types Packs/Day Years Used Date Smoking Tobacco: Never Passive Smoke Exposure: Past Smokeless Tobacco: Never Alcohol Use Standard Drinks/Week Comments Not Currently 0 (1 standard drink = 0.6 oz pur e alcohol) [facility] Utilities Answer Date Recorded In the past 12 months has [employer], gas, oil, or water [employer] threatened to shut off services in your home? No 10/30/2024 PHQ-2 Answer Date Recorded PHQ-2 Score 0 10/27/2024 Exercise Vital Sign Answer Date Recorde d [...] have money to get more. Patient declined PRAPARE - Transportation Answer Date Re corded In the past 12 months, has l ack of transportation kept you from medical appointments or from getting medications? No 10/14 In the past 12 months, has l ack of transportation kept you from meetings, work, or from getting things needed for daily living? No 10/30/2024 Depression Answer Date Recor ded PHQ-9 Total Score (max 27) 3 10/27 Nutrition Answer Date Recorded On average, how many serving s of fruits and vegetables do you eat per day (serving size is equal to 1 cup or approximately the size of a tennis ball)? 3-5 07/25/2024 Dental Answer Date Recorded Dental: Regular Dentist Yes 07/25/20 Employment Answer Date Recorded Employment status Working with temporary [email or web address] 07/25/2024 Housing Stability Answer Date Recorded What is your living situation today? I have a [facility] place to live 10/30/2024 Comments No Sex and Gender Information Value Date Recorded Sex Assigned at Female 07/25/2024 9:49 AM WIRE MESH FILTER FABRICATOR Legal Sex Female 6:01 PM WIRE MESH FILTER FABRICATOR Gender Identity Female 07/25/2024 9:49 AM WIRE MESH FILTER FABRICATOR Sexual Orientation Straight 07/25/2024 9: 49 AM WIRE MESH FILTER FABRICATOR documented as of this encounter Miscellaneous Notes * Telephone Encounter - Brie Durant M.D. - 11/02/2024 11:10 AM CDT Ms. Ayers has called with excruciating right chest wall pain when the drain is stripped. The pain is located in the central aspect of the incision. She is s/p bilateral total mastectomy with flat aesthetic closure and liposuction on 10/30/2024. She and her report that the drains are working appropriately and holding suction. One drain had 46 cc out yesterday and the other side had 47 cc.She has not taken a look at the incisions but her has not noticed any signs of infection orbleeding. She is mainly taking Tylenol and took 1 oxycodone last night before bed. She is not taking ibuprofen given that she will start Eliquis today. She will upload a picture in the portal for our review. She will take an oxycodone with some food. I will contact Dr. Mcclendon for his awareness and suggestions and will follow up on the picture and touch base with her in a few, this afternoon. She has our contact information if she needs to reach us i mmediately. She also lives about an hour away if need to be seen. documented in this encounter Plan of Treatment Upcoming Encounters Date Type Department Care Team ([facility] st Contact Info) Description 12/07/2024 10:15 AM CDT Appointment Department of Radiation Oncology in [address] [phone] Tim Navarro M.D., Ph.D. [address] [place] [phone] 12/07/2024 11:30 AM CDT Appointment Department of Radiation Oncology in [address] [phone] Tim Navarro M.D., Ph.D. [address] [place] [phone] Christy Wade R.N. [address] [place] [phone] 12/07/2024 12:20 PM CDT Appointment Department of Radiology, [facility], in [address] [phone] Meghna Soto M.B., B.Ch. [address] [place] [phone] 12/07/2024 2:40 PM CDT Office Visit Department of Oncology in [address] [phone] Meghna Soto M.B., B.Ch. [address] [place] [phone] 12/08/2024 8:00 AM CDT Telemedicine Department of Oncology in [place], [place] [address] [place] [phone] Haim Mueller, CUSTOMER ACCOUNT EXECUTIVE, C.N.P., D.N.P. [address] [place] [phone] [place] Lombardi P.A.-C., M.S. [address] [place] [phone] 12/15/2024 10:00 AM CDT Virtual Visit Department of Cardiovascular Medicine in [place], [place] [address] [place] [phone] Soto Ta M.D., Ph.D. [address] [place] [phone] 02/05/2025 9:30 AM CDT Infusion Department of Infusion Therapy in [place], [place] [address] [place] [phone] Meghna Soto M.B., B.Ch. [address] [place] [phone] documented as of this encounter Visit Diagnoses Not on filedocumented in this encounter Additional Health Concerns Assessment Noted Time PHQ-9 Depression Total Score: 3 10/28/19 9:43 AM CDT documented as of this encounter Care Teams Mold Sprayer Relationship Specialty Start Date End Date Elsewhere, Pcp PCP - General Internal Medicine 07/25/24 documented as of this encounter
--- OUTSIDE RECORDS SUMMARY | 2024-12-06 20:54 | XMS_ITS | Encounter Summary ---
Author Organization [facility] Address [address] [place] [address] Care Team Providers Care Technical Publications Manager Name Role Phone Elsewhere, Pcp Primary Care Provider Unavailabl e Encounter Details Date Type Department Care Team (Late st Contact Info) Description 11/01/2024 Clinical Communication Division of Breast and Melanoma Surgical Oncology in [place], [place] [address] [place] [address] Brie Durant M.D. [address] [place] [phone] Social History Tobacco Use Types Packs/Day Years Used Date Smoking Tobacco: Never Passive Smoke Exposure: Past Smokeless Tobacco: Never Alcohol Use Standard Drinks/Week Comments Not Currently 0 (1 standard drink = 0.6 oz pur e alcohol) [facility] Utilities Answer Date Recorded In the past 12 months has [email or web address], gas, oil, or water [employer] threatened to shut off services in your [...] Date Recorded Employment status Working with temporary [employer] 07/25/2024 Housing Stability Answer Date Recorded What is your living situation today? I have a [facility] place to live 10/30/2024 Comments No Sex and Gender Information Value Date Recorded Sex Assigned at Female 07/25/2024 9:49 AM FENCE SETTER Legal Sex Female 6:01 PM FENCE SETTER Gender Identity Female 07/25/2024 9:49 AM FENCE SETTER Sexual Orientation Straight 07/25/2024 9: 49 AM FENCE SETTER documented as of this encounter Miscellaneous Notes * Telephone Encounter - Gail Monterroso RNataliaN. - 11/01/2024 9:57 AM CDT Patient reached out to our office with a question about persistent and worsening sore throat. Patient reports that she noticed slight soreness in her throat following surgery. She reports that this has gotten progressively worse over the last 2 days and she is now losing her voice. She reports thatthe pain in her throat is far worse than any postoperative pain she is experiencing. She is taking Tylenol on a schedule and is taking oxycodone at night. She is due to start her Eliquis dose tomorrow and so appropriately has not been taking any ibuprofen. Patient reports that her postoperative pain is well managed with oral medications. Patient reports she does have some evidence of an upper respiratory infection in that she does havea slight productive cough. She is not experiencing fevers or chills. Encouraged patient to reach out to her primary care provider or urgent care provider today if possible for screening for strep or other bacterial infection. Discussed with patient [id number] remedies for upper respiratory infection that are safe including cough drops, gargling with salt water and cough syrup. Encouraged patient to continue with good self-care including rest and plenty of fluids. Patient reports she is otherwise recovering well from surgery and does not have any questions abouther drains or incisions. Encouraged patient to reach back out to our office if she had any additional questions or concerns. Patient stated she will reach out to her primary care provider today for assessment and treatment of her sore throat. documented in this encounter Plan of Treatment Upcoming Encounters Date Type Department Care Team (Late st Contact Info) Description 12/07/2024 10:15 AM CDT Appointment Department of Radiation Oncology in [address] [phone] Tim Navarro M.D., Ph.D. [address] [place] [phone] 12/07/2024 11:30 AM CDT Appointment Department of Radiation Oncology in [address] [phone] Tim Navarro M.D., Ph.D. [address] [place] [phone] Christy Wade R.N. [address] [place] [phone] 12/07/2024 12:20 PM CDT Appointment Department of Radiology, [facility], in [address] [phone] eMghna Soto M.B., B.Ch. [address] [place] [phone] 12/07/2024 2:40 PM CDT Office Visit Department of Oncology in [place], [place] [address] [place] [phone] Meghna Soto M.B., B.Ch. [address] [place] [phone] 12/08/2024 8:00 AM CDT Telemedicine Department of Oncology in [place], [place] [address] [place] [phone] Haim Mueller, KRISSY, C.N.P., D.N.P. [address] [place] [phone] [place] Lombardi P.A.-C., M.S. [address] [place] [phone] 12/15/2024 10:00 AM CDT Virtual Visit Department of Cardiovascular Medicine in [place], [place] [address] [place] [phone] Soto Ta M.D., Ph.D. [address] [place] [phone] 02/05/2025 9:30 AM CDT Infusion Department of Infusion Therapy in [place], [place] [address] [place] [phone] Meghna Soto M.B., B.Ch. [address] [place] [phone] documented as of this encounter Visit Diagnoses Not on filedocumented in this encounter Additional Health Concerns Assessment Noted Time PHQ-9 Depression Total Score: 3 10/28/19 25 9:43 AM CDT documented as of this encounter Care Teams Technical Publications Manager Relationship Specialty Start Date End Date Elsewhere, Pcp PCP - General Internal Medicine 07/25/24 documented as of this encounter
--- OUTSIDE RECORDS SUMMARY | 2024-12-06 20:54 | XMS_ITS | Encounter Summary ---
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 [address] [place] [phone] Phone: tel: fax: [facility] Referral ID Status Reason Start Date Expiration Date Visits Re quested Visits Authorized [id number] Closed 11/06/2024 05/08/2026 1 1 Scheduling Instructions please group appointments if possible Encounter Details Date Type Department Care Team (Late st Contact Info) Description 11/06/2024 Orders Only Division of Breast and Melanoma Surgical Oncology in [place], [place] [address] [place] [phone] Gail Monterroso RNataliaNNatalia [address] [place] [phone] 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) (Primary Dx); 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 I have a [facility] place to live 10/30/2024 Comments No Sex and Gender Information Value Date Recorded Sex Assigned at Female 07/25/2024 9:49 AM SENIOR MAINFRAME PROGRAMMER ANALYST Legal Sex Female 6:01 PM SENIOR MAINFRAME PROGRAMMER ANALYST Gender Identity Female 07/25/2024 9:49 AM SENIOR MAINFRAME PROGRAMMER ANALYST Sexual Orientation Straight 07/25/2024 9: 49 AM SENIOR MAINFRAME PROGRAMMER ANALYST documented as of this encounter Plan of Treatment Upcoming Encounters Date Type Department Care Team (Late st Contact Info) Description 12/07/2024 10:15 AM CDT Appointment Department of Radiation Oncology in [place], [place] [address] [place] [phone] Tim Navarro M.D., Ph.D. [address] [place] [phone] 12/07/2024 11:30 AM CDT Appointment Department of Radiation Oncology in [place], [place] [address] [place] [phone] Tim Navarro M.D., Ph.D. [address] [place] [phone] Christy Wade R.N. [address] [place] [phone] 12/07/2024 12:20 PM CDT Appointment Department of Radiology, [facility], in [place], [place] [address] [place] [phone] Meghna Soto M.B., B.Ch. [address] [place] [phone] 12/07/2024 2:40 PM CDT Office Visit Department of Oncology in [place], [place] [address] [place] [phone] Meghna Soto M.B., B.Ch. [address] [place] [phone] 12/08/2024 8:00 AM CDT Telemedicine Department of Oncology in [place], [place] [address] [place] [phone] Haim Mueller, KRISSY, C.N.P., D.N.P. [address] [place] [phone] [place] Lombardi P.A.-C., M.S. [address] [place] [phone] 12/15/2024 10:00 AM CDT Virtual Visit Department of Cardiovascular Medicine in [place], [place] [address] [place] [phone] Soto Ta M.D., Ph.D. [address] [place] [phone] 02/05/2025 9:30 AM CDT Infusion Department of Infusion Therapy in [place], [place] [address] [place] [phone] Meghna Soto M.B., B.Ch. 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
--- OUTSIDE RECORDS SUMMARY | 2024-12-06 20:54 | XMS_ITS | Encounter Summary ---
Author Organization [facility] [place] [facility] Address [address] [place] [id number] Care Team Providers Care Chiller Tender Name Role Phone Elsewhere, Pcp Primary Care Provider Unavailabl e Reason for Referral * Outpatient (Routine) - Authorized Specialty Diagnoses / Procedures Referred By Safia garcia Referred To Contact Cardiovascular Disease Brady Martinez P.A.-C., M.S. [address] [place] [phone] Phone: tel: fax: [facility] Referral ID Status Reason Start Date Expiration Date V isits Requested Visits Authorized [id number] Authorized 10/30/2024 05/01/2026 1 1 Encounter Details Date Type Department Care Team (Late st Contact Info) Description 10/30/2024 Orders Only Department of Cardiovascular Medicine in [place], [place] [address] [place] [phone] Brady Martinez P.A.-C., M.S. [address] [place] [phone] Social History Tobacco Use Types Packs/Day Years Used Date Smoking Tobacco: Never Passive Smoke Exposure: Past Smokeless Tobacco: Never Alcohol Use Standard Drinks/Week Comments Not Currently 0 (1 standard drink = 0.6 oz pur e alcohol) [facility] Utilities Answer Date Recorded In the [...] your living situation today? I have a [facility] place to live 10/30/2024 Comments No Sex and Gender Information Value Date Recorded Sex Assigned at Female 07/25/2024 9:49 AM MACHINE FORMER Legal Sex Female 6:01 PM MACHINE FORMER Gender Identity Female 07/25/2024 9:49 AM MACHINE FORMER Sexual Orientation Straight 07/25/2024 9: 49 AM MACHINE FORMER documented as of this encounter Plan of Treatment Upcoming Encounters Date Type Department Care Team (Late st Contact Info) Description 12/07/2024 10:15 AM CDT Appointment Department of Radiation Oncology in [place], [place] [address] [place] [phone] Tmi Navarro M.D., Ph.D. [address] [place] [phone] 12/07/2024 11:30 AM CDT Appointment Department of Radiation Oncology in [place], [place] [address] [place] [phone] Tim Navarro M.D., Ph.D. [address] [place] [phone] Christy Wade R.N. [address] [place] [phone] 12/07/2024 12:20 PM CDT Appointment Department of Radiology, [facility], in [place], [place] [address] [place] [phone] Meghna Soto M.B., B.Ch. [address] [place] [phone] 12/07/2024 2:40 PM CDT Office Visit Department of Oncology in [place], [place] [address] [place] [phone] Meghna Soto M.B., B.Ch. [address] [place] [phone] 12/08/2024 8:00 AM CDT Telemedicine Department of Oncology in [place], [place] [address] [place] [phone] Haim Mueller, KRISSY, C.N.P., D.N.P. [address] [place] [phone] Brooklyn Lombardi P.A.-C., M.S. [address] [place] [phone] 12/15/2024 10:00 AM CDT Virtual Visit Department of Cardiovascular Medicine in [place], [place] [address] [place] [phone] Soto Ta M.D., Ph.D. [address] [place] [phone] 02/05/2025 9:30 AM CDT Infusion Department of Infusion Therapy in [place], [place] [address] [place] [phone] Meghna Soto M.B., B.Ch. [address] [place] [phone] Scheduled Referrals Name Type Priority Associated Diagnoses Order Schedule Cardiovascular Disease office visit (clinic) [facility]; [facility] Outpatient Referral Routine Expect ed: 10/30/2024, Expires: 01/30/2026 documented as of this encounter Visit Diagnoses Not on filedocumented in this encounter Additional Health Concerns Assessment Noted Time PHQ-9 Depression Total Score: 3 10/28/19 25 9:43 AM CDT documented as of this encounter Care Teams Chiller Tender Relationship Specialty Start Date End Date Elsewhere, Pcp PCP - General Internal Medicine 07/25/24 documented as of this encounter
--- OUTSIDE RECORDS SUMMARY | 2024-12-06 20:54 | XMS_ITS | Clinical Summary ---
Author Organization [facility] Address [address] [place] [address] Care Team Providers Care Clinic Specialist Name Role Phone Shanelle Renee Primary Care Provider [phone] Allergies Active Allergy Reactions Criticality Noted Date [...] 07/29/2022 PHQ-2 (once per calendar year) 2024 DIABETES SCREENING 11/02/2025 11/02/2022 DTAP/TDAP/TD IMMUNIZATION (3 - Td [...] 8.6 - 10.0 mg/dL 11/02/2022 5:36 PM T LABORATORY Glucose 106(H) 70 - 99 mg/dL 11/02/2022 5:36 PM CDT LABORATORY GFR Estimate >90 >60 mL/min/1.7 3m2 11/02/2022 5:36 PM CDT LABORATORY Comment:eGFR calculated usin 2020 CKD-EPI equation. Blood BLOOD SPECIMEN / Unknown Venipuncture / Unknown 11/02/2022 5:13 PM CDT 11/02/2022 5:16 PM CDT us Scooby Spring MD LAB - BLOOD ORDERABLES Final Re sult LABORATORY [facility] [address] floor, [address] [place] [phone], [facility] [phone] from Last 3 Months or Most Recently Relevant to Health Maintenance Care Teams Clinic Specialist Relationship Specialty Start Date End Date Shanelle Renee [address] [place] [address] PCP - General Family Medicine 11/02/22
--- OUTSIDE RECORDS SUMMARY | 2024-12-06 20:54 | XMS_ITS | Clinical Summary ---
Author Organization [facility] Address [address] [place] [address] Care Team Providers Care Laborer Heading Name Role Phone Elsewhere, Pcp Primary Care Provider Unavailabl e Source Comments Patient records contain information from all sites at [facility]. For routine questions regarding patient records, call [phone] during business hours, M-F 8:00 AM - 5:00 PM Central Time. Record requests for emergency care only can be directed to [phone] at any time.[facility] Allergies Active Allergy Reactions Criticality Noted [...] 4 (four) times a day as needed. 2 Active cholecalciferol (Vitamin D3) 25 mcg (1,000 Unit) capsule Take 1 capsule by mouth daily. 8 Active citalopram (CeleXA) 10 mg tablet Take 1 tablet by mouth at bedtime. 4 Active LORazepam (Ativan) 1 mg tablet Take 1 mg by mouth as needed. Prior to flying 4 Active melatonin 1 mg tablet Take 3 mg by mouth at bedtime as needed for sleep. 8 Active ondansetron ODT (Zofran-ODT) 4 mg disintegrating tablet Dissolve 1 tablet (4 mg total) in the mouth every 8 (eight) hours as needed for nausea or vomiting. 20 tablet 10/31/2024 3:20 PM CDT 5 Active sennosides-docusat e sodium (Senna with Docusate Sodium) 8.6-50 mg per tablet Take 1 tablet by mouth 2 (two) times a day. 100 tablet 10/31/2024 3:20 PM CDT 5 Active acetaminophen (TylenoL) 500 mg tablet Take 2 tablets (1,000 mg total) by mouth every 6 (six) hours as needed for pain. 5 Active oxyCODONE (Roxicodone) 5 mg immediate release tabletIndications: Acute Pain Take 1 tablet (5 mg total) by mouth every 4 (four) hours as needed for pain Indication: Acute Pain. 10 tablet 5 Active apixaban (Eliquis) 2.5 mg tablet Take 1 tablet (2.5 mg total) by mouth 2 (two) times a day. Take first dose the morning of 11/02. 56 tablet 1 5 Active apixaban (Eliquis) 2.5 mg tablet Take 1 tablet (2.5 mg total) by mouth 2 (two) times a day. Take first dose the morning of 11/02. 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 on 11/08/2024 Hypertension Essential Primary 07/25/2024 Dyspnea On Exertion 07/25/2024 Patent Foramen Ovale 07/25/2024 Migraine Headache 11/25/2011 Encounters * This document contains information received from the source organization and may not represent a complete record from that organization. Date Type Department Care Team Description 12/01/2024 Documentation Division of Breast and Melanoma Surgical Oncology in [place], [place] [address] [place] [address] Brie Durant M.D. Follow-up 11/27/2024 5:00 PM CDT Virtual Visit Department of Cardiovascular Medicine in [place], [place] [address] [place] [address] Tre Dumas M.D. Patent Foramen Ovale (HCC) (Primary Dx); Hypertension Essential Primary; 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) 11/27/2024 1:30 PM CDT Office Visit Division of Plastic Surgery in [place], [place] [address] [place] [address] Yoon Hamilton APRN C.N.P., D.N.P. Follow Up Examination Postoperative Visit (Primary Dx) 11/27/2024 Ancillary Procedure Department of Plastic and Reconstructive Surgery 11/27/2024 Orders Only Department of Oncology in [place], [place] [address] [place] [address] Meghna Soto M.B., B.Ch. 11/20/2024 8:45 AM CDT - 11/20/2024 1:10 PM CDT Hospital Encounter Department of Radiation Oncology in [place], [place] [address] [place] [phone] Tim Navarro M.D., Ph.D. 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 11/13/2024 9:30 AM CDT Infusion Department of Infusion Therapy in [place], [place] [address] [place] [phone] Meghna Soto M.B., B.Ch. 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) (Primary Dx) Discharge Disposition: Home or Self Care 11/13/2024 8:00 AM CDT Office Visit Division of Plastic Surgery in [address] [phone] Yoon Hamilton APRN C.N.P., D.N.P. Follow Up Examination Postoperative Visit (Primary Dx) 11/13/2024 Ancillary Procedure Department of Plastic and Reconstructive Surgery 11/10/2024 Results Follow-Up Division of Plastic Surgery in [address] [phone] Foster Mcclendon B.M., B.Ch., Ph.D. CT Pelvis Angiogram with IV Contrast 11/09/2024 Clinical Communication Department of Oncology in [place], [place] [address] [place] [phone] Laura Kinsey APRN C.N.P., M.S.N. Oncotype Dx 11/08/2024 3:33 PM CDT - 11/08/2024 11:59 PM CDT Hospital Encounter Department of Radiology, [facility] in [place], [place] [address] [place] [phone] Foster Mcclendon B.M., B.Ch., Ph.D. 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) Discharge Disposition: Home or Self Care 11/08/2024 1:00 PM CDT Office Visit Division of Breast and Melanoma Surgical Oncology in [place], [place] [address] [place] [address] Geno Stevenson APRN, C.N.P., D.N.P. Follow Up Examination Postoperative Visit (Primary Dx); 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) 11/08/2024 12:00 PM CDT - 11/08/2024 3:32 PM CDT Hospital Encounter Department of Laboratory Medicine and Pathology, [facility] in [place], [place] [address] [place] [address] Foster Mcclendon B.M., B.Ch., Ph.D. 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) Discharge Disposition: Home or Self Care 11/08/2024 10:00 AM CDT Comprehensive Visit Department of Oncology in [place], [place] [address] [place] [phone] Meghna Soto M.B., B.Ch. 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) (Primary Dx); Genetic Susceptibility To Breast Malignant Neoplasm; Stress; Anxiety 11/06/2024 Orders Only Division of Breast and Melanoma Surgical Oncology in [place], [place] [address] [place] [phone] Gail Monterroso R.N. 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 11/03/2024 Clinical Communication Division of Breast and Melanoma Surgical Oncology in [place], [place] [address] [place] [phone] Brie Durant M.D. 11/02/2024 Clinical Communication Division of Breast and Melanoma Surgical Oncology in [place], [place] [address] [place] [phone] Brie Durant M.D. 11/02/2024 Clinical Communication Division of Breast and Melanoma Surgical Oncology in [place], [place] [address] [place] [address] Brie Durant M.D. 11/01/2024 Clinical Communication Division of Breast and Melanoma Surgical Oncology in [place], [place] [address] [place] [address] Brie Durant M.D. 10/30/2024 2:15 PM CDT Ancillary Procedure Department of Laboratory Medicine 10/30/2024 10:52 AM CDT Anesthesia Event [facility] OR [address] [place] [address] Loraine Damon M.D. Kor, Benjamin T, M.D. 10/30/2024 9:05 AM CDT - 10/30/2024 4:21 PM CDT Surgery [facility] OR [address] [place] [address] Brie Durant M.D. BILATERAL SIMPLE MASTECTOMY. 10/30/2024 7:30 AM CDT - 10/30/2024 11:59 PM CDT Hospital Encounter Department of Radiology, [facility] in [place], [place] [address] [place] [address] Brie Durant M.D. 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) Discharge Disposition: Home or Self Care 10/30/2024 6:43 AM CDT - 10/31/2024 3:13 PM CDT Hospital Encounter [facility], [facility], Sixth Floor [address] [place] [address] Brie Durant M.D. 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) Discharge Disposition: Home or Self Care 10/30/2024 Orders Only Department of Cardiovascular Medicine in [place], [place] [address] [place] [address] Brady Martinez P.A.-C., M.S. 10/25/2024 Clinical Communication Division of Breast and Melanoma Surgical Oncology in [place], [place] [address] [place] [phone] Brie Durant M.D. 10/20/2024 12:00 PM PATIENT ATTENDANT Office Visit Division of Breast and Melanoma Surgical Oncology in [place], [place] [address] [place] [phone] Brie Durant M.D. 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) (Primary Dx) 10/20/2024 11:00 AM PATIENT ATTENDANT Comprehensive Visit Division of Plastic Surgery in [place], [place] [address] [place] [phone] Foster Mcclendon B.M., B.Ch., Ph.D. 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) (Primary Dx) 10/20/2024 Ancillary Procedure Department of Plastic and Reconstructive Surgery 10/19/2024 10:15 AM PATIENT ATTENDANT Clinical Communication Virtual Review in [place], [place] [address] [place] [address] 10/16/2024 7:30 AM PATIENT ATTENDANT Virtual Visit Department of Cardiovascular Medicine in [place], [place] [address] [place] [phone] Tre Dumas M.D. Patent Foramen Ovale (HCC) (Primary Dx); Migraine Headache; Hypertension Essential Primary 10/11/2024 1:00 PM PATIENT ATTENDANT Office Visit Department of Neurology in [address] [phone] Kwesi Poole M.D. Patent Foramen Ovale (HCC) (Primary Dx) 10/09/2024 10:12 AM PATIENT ATTENDANT - 10/09/2024 11:59 PM PATIENT ATTENDANT Hospital Encounter Department of Cardiovascular Diseases in [address] [phone] Tre Dumas M.D. Hypertension Essential Primary; Dyspnea On Exertion Discharge Disposition: Home or Self Care 10/09/2024 8:45 AM PATIENT ATTENDANT - 10/09/2024 10:11 AM PATIENT ATTENDANT Hospital Encounter Department of Laboratory Medicine and Pathology, [facility] in [place], [place] [address] [place] [phone] Tamika Santiago M.D. Patent Foramen Ovale (HCC) Discharge Disposition: Home or Self Care 09/27/2024 Orders Only Division of Breast and Melanoma Surgical Oncology in [place], [place] [address] [place] [phone] Gail Monterroso R.N. 09/21/2024 Clinical Communication Division of Plastic Surgery in [place], [place] [address] [place] [phone] Foster Mcclendon B.M., B.Ch., Ph.D. 09/19/2024 Orders Only Division of Breast and Melanoma Surgical Oncology in [place], [place] [address] [place] [phone] Gail Monterroso R.N. 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) (Primary Dx) 09/18/2024 Results Follow-Up Division of General Internal Medicine in [place], [place] [address] [place] [phone] Bina Vasques M.D. MR Breast Biopsy Right with Guidance 09/18/2024 Orders Only Division of Breast and Melanoma Surgical Oncology in [place], [place] [address] [place] [phone] Gail Monterroso RConchis 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) (Primary Dx) 09/15/2024 9:51 AM PATIENT ATTENDANT - 09/15/2024 11:59 PM PATIENT ATTENDANT Hospital Encounter Department of Radiology, [facility] in [place], [place] [address] [place] [address] Bina Vasques M.D. Abnormal Magnetic Resonance Imaging Breast; 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) Discharge Disposition: Home or Self Care 09/15/2024 9:45 AM PATIENT ATTENDANT - 09/15/2024 9:50 AM PATIENT ATTENDANT Hospital Encounter Department of Radiology, [facility], in [place], [place] [address] [place] [address] Bina Vasques M.D. Abnormal Magnetic Resonance Imaging Breast; 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) Discharge Disposition: Home or Self Care 09/15/2024 9:20 AM PATIENT ATTENDANT - 09/15/2024 9:44 AM PATIENT ATTENDANT Hospital Encounter Department of Radiology in [place], [place] [address] [place] [phone] Bina Vasques M.D. Abnormal Magnetic Resonance Imaging Breast; 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) Discharge Disposition: Home or Self Care 09/15/2024 9:17 AM PATIENT ATTENDANT - 09/15/2024 9:19 AM PATIENT ATTENDANT Hospital Encounter Department of Radiology, [facility] in [place], [place] [address] [place] [address] Bina Vasques M.D. Abnormal Magnetic Resonance Imaging Breast; 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) Discharge Disposition: Home or Self Care 09/15/2024 9:15 AM PATIENT ATTENDANT - 09/15/2024 9:16 AM PATIENT ATTENDANT Hospital Encounter Department of Radiology in [place], [place] [address] [place] [phone] Bina Vasques M.D. Abnormal Magnetic Resonance Imaging Breast; 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) Discharge Disposition: Home or Self Care 09/11/2024 Orders Only Division of General Internal Medicine in [place], [place] [address] [place] [phone] Bina Vasques M.D. Abnormal Magnetic Resonance Imaging Breast (Primary Dx); 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) 09/08/2024 8:15 AM PATIENT ATTENDANT Comprehensive Visit Division of Breast and Melanoma Surgical Oncology in [place], [place] [address] [place] [address] Brie Durant M.D. 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) 09/07/2024 3:30 PM PATIENT ATTENDANT Comprehensive Visit Division of Allergic Diseases in [place], [place] [address] [place] [address] Janice Menard P.A.Mariela., M.S. Allergy Penicillin Antibiotic Personal History (Primary Dx) 09/07/2024 2:45 PM PATIENT ATTENDANT Clinical Support Division of Allergic Diseases in [place], [place] [address] [place] [phone] Peggy Silvestre M.D., Ph.D. Annita Garcia R.N. Allergy Penicillin Antibiotic Personal History 09/07/2024 1:00 PM PATIENT ATTENDANT Comprehensive Visit Breast Diagnostic Clinic in [place], [place] [address] [place] [phone] Roxy Mayo, Ph.D., L.P. 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); Stress from Last 3 Months Family History Medical History Relation Name Comments ADD Daughter 1 felisa mehta Autism test May - Felisa is mild support needs but is on the spectrum Anxiety disorder Daughter 1 felisa mehta POTS Daughter 2 Ml Patel Diagnosed at age 19 Anxiety disorder Father pal rawn Coronary artery disease Father pal rawn Depression Father pal rawn Diabetes Father pal rawn Hyperlipidemia Father pal rawn Hypertension Father pal rawn Obesity Father pal rawn Skin cancer Father pal rawn removed cancero us area Sleep apnea Father pal rawn Other cancer Maternal Grandmother january sanam osteosa rcoma Breast cancer Mother arnoldo raphael in 1976 Clotting disorder Paternal Grandmother frederic rawn Colon cancer Paternal Grandmother frederic raphael at age 99 Colon polyps Paternal Grandmother frederic rawn Coronary artery disease Paternal Grandmother frederic raw n Diabetes Paternal Grandmother frederic rawn Hypertension Paternal Grandmother frederic rawn Lung cancer Paternal Grandmother frederic raphael at age 98 Stroke Paternal Grandmother frederic mathisn early o nset strokes starting at age 35 managed wit ADD Son naty patel Relation Name Status Comments Daughter 1 felisa mehta Alive Daughter 2 Ml [place] Alive Father pal rawn Alive Maternal Grandmother prieto sanam Alive Mother arnoldo raphael Alive Paternal Grandmother frederic raphael Alive Son naty patel Alive Social History Tobacco Use Types Packs/Day Years Used Date Smoking Tobacco: Never Passive Smoke Exposure: Past Smokeless Tobacco: Never Tobacco Cessation:Counseling Given: Not Answered Alcohol Use Standard Drinks/Week Comments Not Currently 0 (1 standard drink = 0.6 oz pur e alcohol) [facility] Utilities Answer Date Recorded In the past 12 months has e electric, gas, oil, or water company threatened to shut off services in your home? No 10/30/2024 PHQ-2 Answer Date Recorded PHQ-2 Score 1 11/24/2024 Exercise Vital Sign Answer Date Recorde d [...] Recor ded PHQ-9 Total Score (max 27) 4 11/24 Nutrition Answer Date Recorded On average, how many serving s of fruits and vegetables do you eat per day (serving size is equal to 1 cup or approximately the size of a tennis ball)? 3-5 07/25/2024 Dental Answer Date Recorded Dental: Regular Dentist Yes 07/25/20 24 Employment Answer Date Recorded Employment status Working with temporary 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 I have a [facility] place to live 10/30/2024 Comments No Sex and Gender Information Value Date Recorded Sex Assigned at Female 07/25/2024 9:49 AM PATIENT ATTENDANT Legal Sex Female 6:01 PM PATIENT ATTENDANT Gender Identity Female 07/25/2024 9:49 AM PATIENT ATTENDANT Sexual Orientation Straight 07/25/2024 9: 49 AM PATIENT ATTENDANT Last Filed Vital Signs Vital Sign Reading Time Taken Comments Blood Pressure 131/83 11/13/2024 9:21 AM CDT Pulse 76 11/13/2024 9:21 AM CDT Temperature 36.5 C (97.7 F) 11/13/2024 9:21 AM CDT Respiratory Rate 20 11/13/2024 9:21 AM CDT Oxygen Saturation 98% 11/08/2024 9:42 AM CDT Inhaled Oxygen Concentration - - Weight 80.7 kg (177 lb 14.6 oz) 11/20/2024 8:48 AM CDT Height 165.3 cm (5' 5.08) 11/08/2024 9:42 AM CD T Body Mass Index 29.53 11/08/2024 9:42 AM CDT Plan of Treatment Upcoming Encounters Date Type Department Care Team (Late st Contact Info) Description 12/07/2024 10:15 AM CDT Appointment Department of Radiation Oncology in [address] [phone] Tim Navarro M.D., Ph.D. [address] [place] [phone] 12/07/2024 11:30 AM CDT Appointment Department of Radiation Oncology in [address] [phone] Tim Navarro M.D., Ph.D. [address] [place] [phone] Christy Wade R.N. [address] [place] [phone] 12/07/2024 12:20 PM CDT Appointment Department of Radiology, [facility], in [address] [phone] Meghna oSto M.B., B.Ch. [address] [place] [phone] 12/07/2024 2:40 PM CDT Office Visit Department of Oncology in [address] [phone] Meghna Soto M.B., B.Ch. [address] [place] [phone] 12/08/2024 8:00 AM CDT Telemedicine Department of Oncology in [place], [place] [address] [place] [phone] Haim Mueller, KRISSY, C.N.P., D.N.P. [address] [place] [phone] Brooklyn Lombardi P.A.-Sajan., M.S. [address] [place] [phone] 12/15/2024 10:00 AM CDT Virtual Visit Department of Cardiovascular Medicine in [place], [place] [address] [place] [phone] Soto Ta M.D., Ph.D. [address] [place] [phone] 02/05/2025 9:30 AM CDT Infusion Department of Infusion Therapy in [place], [place] [address] [place] [phone] Meghna Soto M.B., B.Ch. [address] [place] [phone] Health Maintenance Due Date Last Done Comments CT Colonography 1970 Cervical/Vaginal Cancer Screening 1970 Cologuard 1970 FIT 1970 HIV Screening 1970 Hepatitis C Screening 1970 Lipid (Cholesterol) Screening 1970 Pneumococcal vaccine (50+ years) (1 of 2 - PCV) 1989 Zoster Vaccines (1 of 2) 1989 COVID-19 Vaccine (3 - Pfizer risk series) 01/24/2021 12/27/2020, 12/06/2020 Influenza Vaccine (#1) 2024 8, 09/21/2017, 06/24/2016, Additional history exists Depression Screening (Annual PHQ-2) 08/16/2024 Fasting Glucose for Diabetes Screening 11/02/2025 11/02/2022, 06/16/2021, 06/22/2019 Office Visit for Blood Pressure Check / Re-check 11/13/2025 11/13/2024 DTaP,Tdap,and Td Vaccines (3 - Td or Tdap) 09/27/2027 09/27/2017, 06/21/2007 Colonoscopy 02/01/2033 02/01/2023 Colorectal Cancer Screening 02/01/2033 Hepatitis B Vaccines Completed 11/25/2011, 11/03/2002, 12/13/1997 Mammogram Discontinued 08/15/2024, 07/17, 08/02/2024, Additional history exists HPV Vaccines Aged Out No longer eligi ble based on patient's age to complete this topic IPV Vaccines Aged Out No longer eligi ble based on patient's age to complete this topic Medical Devices Implanted Type Area Irish Moss Gatherer Device Identifier Shelf Expiration Date Model / Serial / Lot Clp Hrzn Ti 6 Jenni Elise Gonzalo - [id number] Implanted:Qt y: 1 on 10/30/2024 by Brie Durant M.D. at [facility] Hardware e.g. pins/screws /rods [employer] [id number] / / Clp Hrzn Ti 6 Jenni Elise Gonzalo - [id number] Implanted:Qt y: 1 on 10/30/2024 by Brie Durant M.D. at [facility] Hardware e.g. pins/screws /rods [employer] [id number] / / Imaging Marker-08/15 Implanted: (Quantity not on file) Imaging Marker Right: Breast Mrk Brst Biop Hyd Opn Cl - [id number] Implanted:Qt y: 1 on 09/15/2024 by Kj Wong M.D. at [facility] Imaging Marker Right: Breast Mammotome [id number] 06/08/202740094009-08-23- T3 / / [id number] Mrk Brst Biop Atec Trm - [id number] Implanted:Qt y: 1 on 09/15/2024 by Kj Wong M.D. at [facility] [place] Imaging Marker Right: Breast [employer] [id number] 04/18/2026 TRIMARKTD 13-MR / / [id number] Mrk Brst Biop Atec Trm - [id number] Implanted:Qt y: 1 on 09/15/2024 by Kj Wong M.D. at [facility] [place] Imaging Marker Left: Breast [employer] [id number] 04/18/2026 TRIMARKTD 13-MR / / [id number] Explanted Type Area Irish Moss Gatherer Device Identifier Shelf Expiration Date Model / Serial / Lot Misc Other Misc Other Left: Knee Description:Cadaver ACL impl anted Procedures Procedure Name Priority Date/Time Associated Diagnosis Comments PLASTIC AND RECON SURGERY IMAGE EXAM Routine 11/27/2024 12:00 AM CDT PLASTIC AND RECON SURGERY IMAGE EXAM Routine 11/13/2024 12:[address] PELVIS ANGIOGRAM WITH IV CONTRAST RAD - Routine (most inpatients and all outpatients) 11/08/2024 4:44 PM CDT 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) CREATININE WITH EGFR, S/P Routine 11/08/2024 12:17 PM CDT 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) PATHOLOGY IMAGE EXAM Routine 10/30/2024 2:15 PM CDT EXT ES ONCOTYPE DX BREAST RECURRENCE SCORE Routine 10/30/2024 2:00 PM CDT 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) AURA ONCO DX BREAST RECURR SCORE, T Routine 10/30/2024 1:36 PM CDT 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) SURGICAL PATHOLOGY, [facility] Routine 10/30/2024 12:58 PM CDT 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) LDA ANE ENDOTRACHEAL AIRWAY Routine 10/30/2024 10:56 AM CDT OTHER 10/30/2024 10:30 AM CDT 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) BIOPSY SENTINEL LYMPH NODE AXILLARY - PREOPERATIVE LYMPHOSCINTIGRAPHY 10/30/2024 10:30 AM CDT 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) MASTECTOMY - SIMPLE 10/30/2024 10:30 AM CDT 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) NM SENTINEL NODE INJECTION ONLY RAD - Routine (most inpatients and all outpatients) 10/30/2024 8:59 AM CDT 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) PLASTIC AND RECON SURGERY IMAGE EXAM Routine 10/20/2024 12:00 AM PATIENT ATTENDANT (TTE) 2D ECHO DOPPLER COLOR AND CONTRAST Routine 10/09/2024 11:54 AM PATIENT ATTENDANT Hypertension Essential Primary Dyspnea On Exertion PHOSPHOLIPID (CARDIOLIPIN) ABS, IGG AND IGM, S Routine 10/09/2024 8:59 AM PATIENT ATTENDANT Patent Foramen [place] (HCC) BETA-2 GLYCOPROTEIN 1 ABS, IGG AND IGM, S Routine 10/09/2024 8:59 AM PATIENT ATTENDANT Patent Foramen [place] (HCC) THROMBOPHILIA PROF Routine 10/09/2024 8: 59 AM PATIENT ATTENDANT Patent Foramen [place] (HCC) BI BREAST DIAGNOSTIC RIGHT POST PROCEDURE RAD - Routine (most inpatients and all outpatients) 09/15/2024 12:46 PM PATIENT ATTENDANT Abnormal Magnetic Resonance Imaging Breast 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) BI BREAST DIAGNOSTIC LEFT POST PROCEDURE RAD - Routine (most inpatients and all outpatients) 09/15/2024 12:46 PM PATIENT ATTENDANT Abnormal Magnetic Resonance Imaging Breast 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) MR BREAST BIOPSY LEFT WITH GUIDANCE RAD - Routine (most inpatients and all outpatients) 09/15/2024 12:30 PM PATIENT ATTENDANT Abnormal Magnetic Resonance Imaging Breast 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) MR BREAST BIOPSY RIGHT ADDITIONAL LESION WITH GUIDE RAD - Routine (most inpatients and all outpatients) 09/15/2024 12:28 PM PATIENT ATTENDANT Abnormal Magnetic Resonance Imaging Breast 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) MR BREAST BIOPSY RIGHT WITH GUIDANCE RAD - Routine (most inpatients and all outpatients) 09/15/2024 12:27 PM PATIENT ATTENDANT Abnormal Magnetic Resonance Imaging Breast 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) SURGICAL PATHOLOGY Routine 09/15/2024 11:52 AM PATIENT ATTENDANT Abnormal Magnetic Resonance Imaging Breast 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) SURGICAL PATHOLOGY Routine 09/15/2024 11:45 AM PATIENT ATTENDANT Abnormal Magnetic Resonance Imaging Breast 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) SURGICAL PATHOLOGY Routine 09/15/2024 11:43 AM PATIENT ATTENDANT Abnormal Magnetic Resonance Imaging Breast 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) EVENT MONITOR - ALL CHARGES Routine 09/09/2024 11:59 PM PATIENT ATTENDANT Hypertension Essential Primary Other Dyspnea OUTSIDE MG MAMMOGRAM Routine 08/15/2024 1:50 PM PATIENT ATTENDANT from Last 3 Months or Most Recently Relevant to Health Maintenance Results * Breast Closure-Plastic And Recon Surgery Image Exam (11/27/2024 12:00 AM CDT) Only the most recent of3 resultswithin the time period is included. Narrative IIMS - 11/27/2024 3:57 PM CDT This order has been created and auto-finalized to support the import of images acquired without order. The clinical documentation to support these images can be found on the encounter that produced images. us Provider Not In System IMG NON RAD IMAGING PROCE DURES Final Result IIMS NA * CT Pelvis Angiogram with IV Contrast (11/08/2024 4:44 PM CDT) Anatomical Region Laterality Modality Pelvis, Cardiovascular RST L OS, Abdominal ARZ LOS, Vascular Interventional ARZ LOS, Vascular Interventional FLA LOS, Procedural, Vascular Interventional NWWI LOS N/A Computed Tomography, Computed Tomography Impressions 11/08/2024 4:36 PM CDT The largest abdominal wall sleeve setter safety stitch on the right arises on series 9 images 25- 27 and has a relatively long intramuscular course. It originates 3.6 cm: 3.5 cm lateral to the center of the umbilicus. The largest sleeve setter safety stitch on the left also has a relatively long intramuscular course. It arises on series 9 image 25, 5 cm caudal and 3.8 cm lateral to the center of the umbilicus. Remainder negative. Narrative 11/08/2024 4:36 PM CDT EXAM: CT PELVIS ANGIOGRAM WITH IV CONTRAST Including 3D image post-processing with or without AI assistance. COMPARISON: 11/27/2022 Procedure Note Harshad Hernandez M.D. - 11/08/2024 EXAM: CT PELVIS ANGIOGRAM WITH IV CONTRAST Including 3D image post-processing with or without AI assistance. COMPARISON: 11/27/2022 IMPRESSION: The largest abdominal wall sleeve setter safety stitch on the right arises on series 9images 25- 27 and has a relatively long intramuscular course. It originates 3.6 cm: 3.5 cm lateral to the center of the umbilicus. The largest sleeve setter safety stitch on the left also has a relatively longintramuscular course. It arises on series 9 image 25, 5 cm caudal and 3.8 cm lateral to thecenter of the umbilicus. Remainder negative. Foster Blount, B.Ch., Ph.D. IMG CT PROCEDUR ES Final Result * Creatinine with Estimated GFR (11/08/2024 12:17 PM CDT) Creatinine 0.81 0.59 - 1.04 mg/dL 11/08/2024 2:38 PM CDT DTL Estimated GFR (eGFR) 86 >=60 mL/min/BSA 11/08/2024 2:38 PM CDT DTL Comment: Estimated GFR calculated using the 2020 CKD_EPI creatinine equation. Blood (Blood, Venous) 11/08/2024 12:17 PM CDT 11/08/2024 1:33 PM CDT Foster Blount, B.Ch., Ph.D. LAB BLOOD ADD-O N Final Result Performing Organization Address [facility]/ZIP Co de Phone Number [facility] [address] [place] [address], [facility] [address] [place] [address] * Specimen-Pathology Image Exam (10/30/2024 2:15 PM CDT) 10/30/2024 2:14 PM CDT Narrative IIMS - 10/30/2024 2:16 PM CDT This order has been created and auto-finalized to support the import of images acquired without order. The clinical documentation to support these images can be found on the encounter that produced images. us Provider Not In System IMG NON RAD IMAGING PROCE DURES Final Result Performing Organization Address City/[facility] Co de Phone Number IIMS NA * EXT Oncotype DX Breast Recurrence Score (10/30/2024 2:00 PM CDT) EXT Recurrence Score Result 11 11/20/2024 2:56 PM CDT [facility] (CLIA #:[id number] ) EXT HER2 Score 9.6 11/20/2024 2:56 PM CDT [facility] (CLIA #:[id number] ) EXT HER2 Interpretation Negative 11/20/2024 2:56 PM CDT [facility] (CLIA #:[id number] ) EXT ER Score 8.2 11/20/2024 2:56 PM CDT [facility] (CLIA #:[id number] ) EXT ER Interpretation Positive 11/20/2024 2:56 PM CDT [facility] (CLIA #:[id number] ) EXT [place] Score 8.1 11/20/2024 2:56 PM CDT [facility] (CLIA #:[id number] ) EXT [place] Interpretation Positive 11/20/2024 2:56 PM CDT [facility] (CLIA #:[id number] ) EXT Attached Report For complete result and interpretati on, see attached report 11/20/2024 2:56 PM CDT [facility] (CLIA #:[id number] ) Tissue (Other, Specify in Comments) 10/30/2024 2:00 PM CDT 11/14/2024 6:49 PM CDT us Sarah Rowley APRN C.N.P., D.N.P. LAB GENETIC TEST ING Final Result Performing Organization Address [facility] de Phone Number [facility] (CLIA #:[id number]) [address] [place] [address] [facility] (CLIA #:[id number]) [address] [place], [place] [phone] * [facility]ura Exact Oncotype DX Breast Recurrence Score, Tissue - Sent Out Lab (10/30/2024 1:36 PM CDT) Aura Onco DX Breast Recurr Score, T Collected, Sent to Reference Lab DEFAULT 11/13/2024 1:06 PM CDT [facility] Tissue (Other, Specify in Comments) 10/30/2024 1:36 PM CDT 11/13/2024 1:06 PM CDT us Sarah Rowley APRN C.N.P., D.N.P. LAB GENETIC TEST ING Final Result Performing Organization Address City/[facility]/ZIP Co de Phone Number [facility] [address] [place] [address], [facility] [address] [place] [address] * Surgical Pathology, Frozen Lab (10/30/2024 12:58 PM CDT) 11/02/2024 11:53 AM CDT [facility] Participated in the Interpretation Brady Chung M.D.-Pathology Resident 11/02/2024 11:53 AM CDT [facility] Report electronically signed by Kika Degroot M.D. I verify that I have examined all relevant slides/materials for the specimen(s) and rendered or confirmed the diagnosis. 11/02/2024 11:53 AM CDT [facility] Frozen Intraoperative Report A. Lymph nodes, right axillary No. 1, sentinel biopsy: A single lymph node suspicious for metastatic carcinoma. Two lymph node negative for metastatic carcinoma. B. Lymph node, right axillary No. 2, sentinel biopsy: A single (1) lymph node is negative for metastatic carcinoma. C. Breast, right, total mastectomy: Invasive lobular carcinoma forms multiple (2) foci (9 mm and 1 mm in greatest extent). Lobular carcinoma in situ (LCIS), classic type. All margins are negative for invasive carcinoma (2 cm and 7 cm to closest anterior and deep margins, respectively). D. Breast, left, total mastectomy: No definitive residual ductal carcinoma in situ (DCIS). Possible focal atypical ductal hyperplasia (ADH). Favor atypical lobular hyperplasia (ALH). All resection margins are negative for carcinoma. Signed by Kika Degroot M.D. 10/30/2024 4:10 PM 11/02/2024 11:53 AM CDT [facility] Gross Description A. Received fresh labeled right axillary sentinel lymph nodes No. 1 are multiple (3) lymph nodes: (a) 1.4 x 0.8 x 0.5 cm, (b) 1.3 x 0.7 x 0.5 cm, and (c) 0.6 x 0.5 x 0.4 cm. Blue dye is not identified in the lymph nodes. All submitted for frozen and permanent sections. Grossed by HARRY Avalos, HOLLIE (ASCP). B. Received fresh labeled right axillary sentinel lymph node No. 2 is a single 1 x 1 x 0.6 cm lymph node. Blue dye is not identified in the lymph node. All submitted for frozen and permanent sections. Grossed by Daphnie Matthews M.S., PA([facility] C. Received fresh labeled right breast total mastectomy is a 928 g, 20 (M-L) x 5 (A-P) x 26 (S-I) cm oriented simple mastectomy with a 23 x 12 cm skin ellipse. A nipple is present. There are multiple (3) lesions to include: 1) 1.2 (M-L) x 1 (A-P) x 0.8 (S-I) cm biopsy site containing a coil clip located in the lower outer breast 7 cm from the deep margin, 4 cm from the nipple. 2) 1.1 (M-L) x 1.2 (A-P) x 1.4 (S-I) cm biopsy site with hematoma containing a cylinder clip located 1 cm from the anterior margin just superior to the skin edge, 2 cm from the nipple. 3) 0.8 (M-L) x 1.3 (A-P) x 1.1 (S-I) cm biopsy site containing a vision clip located at 10 o'clock 7 cm from the nipple and 7 cm from the coil clip site, and 2 cm from the anterior margin. Margins are inked and submitted perpendicularly. The breast parenchyma is comprised of 60% adipose and 40% fibrocystic tissues, grossly. Ditching Machine Engineer tissue submitted for frozen and permanent sections. After clinical evaluation, residual tissue is procured for IRB No. [id number]. Grossed by Av Spence M.S., PA([facility] D. Received fresh labeled left breast total mastectomy is an 846 g, 20 (M-L) x 4.5 (A-P) x 25 (S-I) cm oriented simple mastectomy with an 18 x 10 cm skin ellipse. A nipple is present. Grossly, there is a 3 (M-L) x 1.4 (A-P) x 5.7 (S-I) cm fibrous area of calcification containing a 0.4 x 0.4 x 0.4 cm biopsy site located at 6 o'clock. The biopsy site distance to each margin is as follows: Anterior: 1.5 cm, posterior: 2.2 cm. Margins are inked and submitted perpendicularly. A clip is identified. The breast parenchyma is 60% fibrous tissue and 40% adipose tissue, grossly. Ditching Machine Engineer tissue submitted for frozen and permanent sections. After clinical evaluation, residual tissue is procured for IRB No. [id number]. Grossed by Daphnie Matthews M.S., HOLLIE([facility]). E. Received fresh labeled right breast lateral tissue is a 43 g aggregate of fibroadipose tissue and skin. No masses identified. Ditching Machine Engineer tissue submitted for permanent sections. Grossed by Av Spence M.S., HOLLIE([facility]). 11/02/2024 11:53 AM CDT M[facility] Block Summary A Right axillary sentinel lymph node #1 A1 Right axillary sentinel lymph node #1a - frozen A2 Right axillary sentinel lymph node #1b - frozen A3 Right axillary sentinel lymph node #1c - frozen B Right axillary sentinel lymph node #2 B1 Right axillary sentinel lymph node #2 - frozen C Right breast total mastectomy C1 Nipple - frozen C2 Anterior margin to cylinder clip site C3 Anterior margin to cylinder clip site - frozen C4 Coil clip site - frozen C5 Lateral to cylinder clip - frozen C6 Anterior margin vision clip site C7 Anterior margin vision clip site - frozen C8 Vision clip site - frozen C9 Upper outer quadrant - frozen C10 Coil clip site for biomarkers C11 Vision clip site for biomarkers D Left breast total mastectomy D1 Left nipple - frozen D2 Fibrous tissue 12:00 D3 Fibrous tissue 12:00 - frozen D4 Biopsy site 6:00 1 - frozen D5 Biopsy site 6:00 2 - frozen D6 Anterior margin 6:00 D7 Anterior margin 6:00 - frozen D8 Posterior margin 6:00 D9 Posterior margin 6:00 - frozen D10 Left 12:00 fibrous tissue 2 D11 Left 12:00 fibrous tissue 2 - frozen D12 Left 1:00 anterior margin D13 Left 1:00 anterior margin - frozen D14 Left lateral fibrous tissue 1 D15 Left lateral fibrous tissue 1 - frozen D16 Left lateral fibrous tissue 2 - frozen D17 Left 3:00 posterior margin D18 Left 3:00 posterior margin - frozen D19 Biopsy site 6:00 3 - frozen D20 Biopsy site 6:00 4 - frozen D21 Biopsy site 6:00 5 - frozen E Right breast lateral tissue E1 Right breast lateral tissue - 1 E2 Right breast lateral tissue - 2 E3 Right breast lateral tissue - 3 11/02/2024 11:53 AM CDT METH Addendum Aura Oncotype DX Breast Recurrence has been requested by Dr. Sarah Rowley and [place] Signed by Cezar Herrera M.D. 11/13/2024 5:18 PM 11/13/2024 5:18 PM CDT METH Comment:REVISED RESULTS Interpretation FINAL DIAGNOSIS A. Lymph nodes, right axillary No. 1, sentinel biopsy: Metastatic carcinoma involves a single (1 of 3) lymph node. B. Lymph node, right axillary No. 2, sentinel biopsy: A single (1) lymph node is negative for metastatic carcinoma. C. Breast, right, total mastectomy: Invasive lobular carcinoma, [place] grade 2 (of 3), forming multiple (2) foci (9 mm and 4 mm in greatest dimension). Lobular carcinoma in situ (LCIS), classic and focal pleomorphic types. All margins are negative for invasive carcinoma and pleomorphic LCIS. See synoptic report #1. D. Breast, left, total mastectomy: Ductal carcinoma in situ (DCIS), intermediate nuclear grade. Scattered foci of atypical lobular hyperplasia (ALH). All resection margins are negative for DCIS. See synoptic report #2. E. Breast, right lateral, excision: Benign skin and subcutaneous tissue. Immunohistochemic al studies were performed (blocks A1 and A2: Keratin AE1/AE3; block C11: E-cadherin, beta catenin; block D10: E-cadherin; block D16: E-cadherin, bata-catenin, keratin 5). Cytokeratin AE1/AE3 highlights invasive carcinoma. The invasive carcinoma is negative for E-cadherin and beta catenin, confirming lobular phenotype. The DCIS is positive for E-cadherin and beta catenin (membranous), negative for keratin 5. The foci of ALH is show partial loss of E-cadherin and beta catenin, and negative for keratin 5. SYNOPTIC REPORT #1: Breast - Invasive Carcinoma Procedure: Total mastectomy Specimen Laterality: Right Tumor Site: Upper and lower outer quadrants Histologic Type: Invasive lobular carcinoma Histologic Grade (Otter Histologic Score) Glandular (Acinar)/Tubular Differentiation: Score 3 Nuclear Pleomorphism: Score 2 Mitotic Rate: Score 1 Overall Grade: Grade 2 Tumor Size: Greatest dimension of largest invasive focus greater than 1 mm: 9 mm Additional dimensions of largest invasive focus: 6 x 5 mm Tumor Focality: Multiple foci of invasive carcinoma Number a foci: 2 Ductal Carcinoma in Situ (DCIS): Not identified Size (Extent) of DCIS: Not applicable Architectural Patterns: Not applicable Nuclear Grade: Not applicable Necrosis: Not applicable Treatment Effect in the Breast: No known pre-surgical therapy Tumor Extent Skin: Skin is present and involved Skeletal Muscle: No skeletal muscle is present Lymphatic and / or Vascular Invasion: Not identified Dermal Lymphatic and / or Vascular Invasion: No skin present Microcalcificatio ns: Microcalcificatio ns present in non-neoplastic tissue Residual Cancer [place] (RCB) Calculation: Not applicable Margins Margin Status for Invasive Carcinoma: All margins are negative for invasive carcinoma Distance from closest margin: 7 mm Closest margin to invasive carcinoma: Deep Margin Status for DCIS: Not applicable Regional Lymph Node Status Regional Lymph Nodes Present Tumor present in regional lymph nodes Number of lymph nodes with macrometastases: 1 Number of lymph nodes with micrometastases: 0 Number of lymph nodes with isolated tumor cells: 0 Size of largest precious metastatic deposit: 3 mm Extranodal extension: Not identified Total number of lymph nodes examined: 4 Number of sentinel nodes examined: 4 Treatment Effect in the Lymph Nodes: Not applicable Distant Metastasis. Distant Site(s) Involved: Not applicable Pathologic Stage Classification (AJCC, 8th edition) Modified Classification: Not applicable pT Category: pT1b T Suffix: (m) pN Category: pN1a pN Suffix: (sn) pM Category: Not applicable - pM cannot be determined from the submitted specimens Special Studies: Previously reported The synoptic report incorporates information from all relevant surgical material and includes all required data elements of the current CAP Cancer Protocol. SYNOPTIC REPORT #2: Breast - Ductal Carcinoma In Situ Procedure: Total mastectomy Specimen Laterality: Left Tumor Site: Lower outer quadrant Histologic Type: Ductal carcinoma in situ Size (Extent) of DCIS: 3 mm Architectural Pattern: Cribriform Nuclear Grade: Grade II (intermediate) Necrosis: Present, focal Microcalcificatio ns: Present in DCIS and nonneoplastic tissue Margin Status: All margins negative for DCIS Distance from DCIS to closest margin: Greater than 10 mm Regional Lymph Node Status Not applicable (no regional lymph nodes submitted or found) Distant Metastasis. Distant Site(s) Involved: Not applicable Pathologic Stage Classification (AJCC, 8th edition) TNM Descriptors: Not applicable pT Category: pTis (DCIS) Regional Lymph Nodes Modifier: Not applicable pN Category: pN not assigned (no nodes submitted or found) pM Category: Not applicable - pM cannot be determined from the submitted specimens Additional Pathologic Findings: Not applicable Special Studies: Previously reported The synoptic report incorporates information from all relevant surgical material and includes all required data elements of the current CAP Cancer Protocol. 11/13/2024 5:18 PM CDT M[facility] Tissue (Breast, Right) 10/30/2024 12:12 PM CDT Comment:Short superior, long lateral Tissue (Breast, Left) 10/30/2024 12:15 PM CDT Comment:2 short superior and 2 long lateral Tissue (Lymph Node, [place]) 10/30/2024 12:58 PM CDT Tissue (Lymph Node, [place]) 10/30/2024 1:00 PM CDT Tissue (Breast, Right) 10/30/2024 3:18 PM CDT us Brie Durant M.D. LAB SURG PATH ORDERABLES Ed ited Result - Final [facility] [address] [place] [address], [facility] [address] [place] [address] * LDA ANE ENDOTRACHEAL AIRWAY (10/30/2024 10:56 AM CDT) Narrative Brady Bess APRN, CRNA - 10/30/2024 10:56 AM CDT Brady Bess APRN, CRNA 10/30/2024 11:08 AM Airway Date/Time: 10/30/2024 10:56 AM Performed by: Brady Bess APRN, CRNA Authorized by: Loraine Damon M.D. Patient location during procedure: OR / Procedure Area PROCEDURE DETAILS: Mask difficulty assessment: oral/nasal airway needed Final airway type: video laryngoscope Laryngeal Manipulation: no Final best view of glottic structures - Cormack/Lehane Score: grade 1 ETT location: oral VL device: glide scope [place] scope blade size: 3 Tube size: 7 ETT distance at teeth/gum: 21 Oral tube type: standard ETT Cuffed: yes Number of attempt to successful placement: 1 Airway confirmation: bilateral breath sounds, positive ETCO2 and bilateral chest rise Other previous techniques attempted: none PRE PROCEDURE DETAILS: Pre evaluation for airway management: procedure Urgency: elective Preop assessment of probable difficulty: no difficulty anticipated Preoxygenation: bag valve mask SEDATION / ANESTHESIA Anesthesia method: anesthesia POST PROCEDURE DETAILS: Procedure outcome: successful Notable Events: no complications us Loraine Damon M.D. ANESTHESIA ORDERABLES Final Re sult * NM [place] Node Injection Only (10/30/2024 8:59 AM CDT) Anatomical Region Laterality Modality Body, Nuclear Medicine RST L OS, Nuclear Medicine ARZ LOS, Nuclear Medicine FLA LOS, Nuclear Medicine N/A Nuclear Med icine Impressions 10/30/2024 10:43 AM CDT Radiotracer injections were performed for sentinel lymph node localization during surgery. Narrative 10/30/2024 10:43 AM CDT EXAM: NM SENTINEL NODE INJECTION ONLY RADIOPHARMACEUTICAL/MEDS: Route: infiltration lidocaine-sodium bicarbonate (buffered) 0.9%-0.84% injection 0.5-2 mL,2 mL Route: infiltration lidocaine-sodium bicarbonate (buffered) 0.9%-0.84% injection 0.5-2 mL , 2 mL Route: infiltration technetium Tc 99m Sulfur Colloid Filtered injection (Tc-99m Sulfur Colloid Filtered) , 0.413 millicurie Route: infiltration technetium Tc 99m Sulfur Colloid Filtered injection (Tc-99m Sulfur Colloid Filtered) , 0.432 millicurie TECHNIQUE: Following injection of a small amount of lidocaine for local anesthetic, the patient was injected intradermally with Tc-99m filtered sulfur colloid in the bilateral breasts for probe localization of lymph nodes in surgery. No images obtained per Dr. Durant. The location for the sentinel lymph node injections was confirmed with the patient during a preprocedural pause. Injections performed by DG. COMPARISON: Breast MR from 09/05/2024. INDICATION: Right breast carcinoma. Procedure Note Reggie Kirby M.D. - 10/30/2024 EXAM: NM SENTINEL NODE INJECTION ONLY RADIOPHARMACEUTICAL/MEDS: Route: infiltration lidocaine-sodium bicarbonate (buffered) 0.9%-0.84% injection 0.5-2 mL,2mL Route: infiltration lidocaine-sodium bicarbonate (buffered) 0.9%-0.84% injection 0.5-2 mL , 2mL Route: infiltration technetium Tc 99m Sulfur Colloid Filtered injection (Tc-99m Sulfur ColloidFiltered) , 0.413 millicurie Route: infiltration technetium Tc 99m Sulfur Colloid Filtered injection (Tc-99m Sulfur ColloidFiltered) , 0.432 millicurie TECHNIQUE: Following injection of a small amount of lidocaine for localanesthetic, the patient was injected intradermally with Tc-99m filteredsulfur colloid in the bilateral breasts for probe localization of lymphnodes in surgery. No images obtained per Dr. Durant. The location for the sentinel lymph node injections wasconfirmed with the patient during a preprocedural pause. Injectionsperformed by DG. COMPARISON: Breast MR from 09/05/2024. INDICATION: Right breast carcinoma. IMPRESSION: Radiotracer injections were performed for sentinel lymph node localizationduring surgery. us Brie Durant M.D. IMG NM PROCEDURES Final Res ult * (TTE) 2D ECHO DOPPLER COLOR AND CONTRAST (10/09/2024 11:54 AM PATIENT ATTENDANT) Ejection Fraction 65 MC CV EIMS Sinus [...] Laterality Modality Echocardiography 10/09/2024 10:3 3 AM PATIENT ATTENDANT Impressions 10/09/2024 11:57 AM PATIENT ATTENDANT LEFT VENTRICLE:Normal left ventricular chamber size. Abnormal [...] saline contrast injection. Patent foramen ovale with [id number] shunt , 30 or greater bubbles seen in the left-sided chambers with Valsalva Maneuver.(almost complete opacification of the left-sided cavities after Valsalva clip 115) No intracardiac mass or thrombus, but the left atrial appendage cannot be visualized adequately with transthoracic echo to exclude thrombus in this location. No pericardial effusion. For the complete report, see the Order-Level Documents. Narrative 10/09/2024 11:57 AM PATIENT ATTENDANT For the complete report, see the Order-Level [...] agitated salinecontrast injection. Patent foramen ovale with [id number] shunt , 30 orgreater bubbles seen in [...] sult * Thrombophilia Profile (10/09/2024 8:59 AM PATIENT ATTENDANT) [facility] Prothrombin Time (PT), P 10.2 9.4 - 12.5 sec 10/09/2024 11:33 AM PATIENT ATTENDANT DTL INR 0.9 0.9 - 1.1 10/09/2024 11:33 AM PATIENT ATTENDANT DTL Comment: ----ADDITIONAL INFORMATION---- Standard intensity warfarin therapeutic range: 2.0 to 3.0 High intensity warfarin therapeutic range: 2.5 to 3.5 Activated Partial Thrombopl Time, P 26 25 - 37 sec 10/09/2024 11:34 AM PATIENT ATTENDANT DTL DRVVT Screen Ratio 0.93 <1.20 ratio 10/09/2024 11:32 AM PATIENT ATTENDANT DTL Thrombin Time (Bovine), P 22.9 15.8 - 24.9 sec 10/09/2024 11:32 AM PATIENT ATTENDANT DTL Fibrinogen, Clauss, P 317 200 - 500 mg/dL 10/09/2024 10:58 AM PATIENT ATTENDANT DTL Comment: ----ADDITIONAL INFORMATION---- This test has been modified from the manager investigations's instructions. Its performance characteristics were determined by [facility] in a manner consistent with CLIA requirements. This test has not been cleared or approved by the U.S. Food and Drug Administration. D-DIMER, P 321 <=500 ng/mL FEU 10/09/2024 11:33 AM PATIENT ATTENDANT DTL Comment: ----ADDITIONAL INFORMATION---- D-dimer values less than or equal to 500 ng/mL fibrinogen equivalent units (FEU) may be used in conjunction with clinical pre-test probability to exclude deep vein thrombosis (DVT) and/or pulmonary embolism (PE). Antithrombin Activity, P 100 80 - 130 % 10/09/2024 11:05 AM PATIENT ATTENDANT DTL Comment: ----ADDITIONAL INFORMATION---- This test has been modified from the manager investigations's instructions. Its performance characteristics were determined by [facility] in a manner consistent with CLIA requirements. This test has not been cleared or approved by the U.S. Food and Drug Administration. Protein C Activity, P 107 70 - 150 % 10/09/2024 11:30 AM PATIENT ATTENDANT DTL Comment: ----ADDITIONAL INFORMATION---- This test has been modified from the manager investigations's instructions. Its performance characteristics were determined by [facility] in a manner consistent with CLIA requirements. This test has not been cleared or approved by the U.S. Food and Drug Administration. Protein S Ag, Free, P 135 65 - 160 % 10/09/2024 10:59 AM PATIENT ATTENDANT DTL Comment: ----ADDITIONAL INFORMATION---- This test has been modified from the manager investigations's instructions. Its performance characteristics were determined by [facility] in a manner consistent with CLIA requirements. This test has not been cleared or approved by the U.S. Food and Drug Administration. APCRV Ratio 2.9 >or=2.3 10/09/2024 11:07 AM PATIENT ATTENDANT DTL Reviewed By Padma Stone M.D. 10/11/2024 1:48 PM PATIENT ATTENDANT DTL Prothrombin F51419D Mutation, B Negative Negative 10/11/2024 9:31 AM PATIENT ATTENDANT DTL PTNT Reviewed By Capri Patel M.D. 10/11 9:31 AM PATIENT ATTENDANT DTL PTNT Interpretation This individual DOES NOT have the Prothrombin F2 c.*97G>A (legacy numbering [id number]) variant. Although the Prothrombin (F2 c.*97G>A) variant is absent, this individual may have other genetic and environmental risk factors for thrombosis. If indicated, consider genetic consultation and counseling for this individual and potentially affected family members regarding laboratory testing. 10/11/2024 9:31 AM PATIENT ATTENDANT DTL Comment: ----ADDITIONAL INFORMATION---- This test uses [...] developed and its performance characteristics determined by [facility] in a manner consistent with CLIA requirements. This test has not been cleared or approved by the U.S. Food and Drug Administration. Thrombophilia Interpretation IMPRESSION: No identifiable congenital or acquired thrombotic diathesis (thrombophilia) within limitations of current test repertoire. COMMENTS: No evidence of resistance to activated protein C (APC). Therefore, DNA-based testing for the factor V Leiden F5 c.1601G>A; p.Nta523Unt (legacy numbering [id number]) variant was not performed. A normal APC resistance ratio has a greater than 99% negative predictive value for factor V Leiden, F5 c.1601G>A; p.Itr705Nzg variant. No evidence of lupus anticoagulant (LAC), dysfibrinogenem ia, intravascular coagulation and fibrinolysis (ICF/DIC). No deficiencies of antithrombin, protein C, or protein S. DNA-based testing demonstrates that this individual DOES NOT have the Prothrombin F2 c.*97G>A (legacy numbering [id number]) variant. Separately performed and reported testing demonstrates normal serum anticardiolipin antibodies and beta-2 glycoprotein I antibodies (IgG and IgM). This testing was performed at [facility] (CLIA Number [id number]), [address] [place] [address]. 10/11/2024 1:48 PM PATIENT ATTENDANT DTL Blood (Blood, Venous) 10/09/2024 8:59 AM PATIENT ATTENDANT 10/09/2024 9:29 AM PATIENT ATTENDANT Narrative [facility] - 10/11/2024 1:48 PM PATIENT ATTENDANT Specimen Information: Specimen ID: [id number] Specimen Type: Blood Specimen Collection Start Date: 10/09/2024 8:59 AM Specimen Received Date: 10/09/2024 9:29 AM Specimen ID: [id number] Specimen Type: Blood Specimen Collection Start Date: 10/09/2024 8:59 AM Specimen Received Date: 10/09/2024 9:29 AM Specimen ID: [id number] Specimen Type: Blood Specimen Collection Start Date: 10/09/2024 8:59 AM Specimen Received Date: 10/09/2024 9:29 AM Specimen ID: [id number] Specimen Type: Blood Specimen Collection Start Date: 10/09/2024 8:59 AM Specimen Received Date: 10/09/2024 9:55 AM Specimen ID: [id number] Specimen Type: Blood Specimen Collection Start Date: 10/09/2024 8:59 AM Specimen Received Date: 10/09/2024 9:29 AM Specimen ID: [id number] Specimen Type: Blood Specimen Collection Start Date: 10/09/2024 9:00 AM Specimen Received Date: 10/09/2024 9:29 AM us Tamika Santiago M.D. LAB BLOOD NON ADD-ON Final Re sult Performing Organization Address City/[facility]/ZIP Co de Phone Number [facility] [address] [place] [address], [facility] [address] [place] [address] DTL [address] [facility] [address] [place] [address] * Beta-2 Glycoprotein 1 Antibodies, IgG and IgM (10/09/2024 8:59 AM PATIENT ATTENDANT) [facility] Beta 2 GP1 Ab IgG, S <9.4 <15.0 (Negative) [facility] 10/10/2024 3:07 PM PATIENT ATTENDANT [facility] Beta 2 GP1 Ab IgM, S <9.4 <15.0 (Negative) [facility] 10/10/2024 3:07 PM PATIENT ATTENDANT [facility] Blood (Blood, Venous) 10/09/2024 8:59 AM PATIENT ATTENDANT 10/09/2024 11:52 AM PATIENT ATTENDANT Tamika Santiago M.D. LAB BLOOD ADD-ON Final Result [facility] [address] [place] [address] [facility][note 2] [address] [place] [address] * Phospholipid (Cardiolipin) Antibodies, IgG and IgM (10/09/2024 8:59 AM PATIENT ATTENDANT) Phospholipid Ab IgM, S <9.4 <15.0 (Negative) [facility] 10/10/2024 7:20 PM PATIENT ATTENDANT [facility] Phospholipid Ab IgG, S <9.4 <15.0 (Negative) [facility] 10/10/2024 7:20 PM PATIENT ATTENDANT [facility] Blood (Blood, Venous) 10/09/2024 8:59 AM PATIENT ATTENDANT 10/09/2024 12:24 PM PATIENT ATTENDANT us Tamika Santiago M.D. LAB BLOOD ADD-ON Final Result [facility] [address] [place] [address] [facility][note 2] [address] [place] [address] * BI Breast Diagnostic Right Post Procedure (09/15/2024 12:46 PM PATIENT ATTENDANT) Anatomical Region Laterality Modality Breast, Breast Imaging RST L OS, Breast Imaging ARZ LOS, Breast Imaging FLA LOS Right Mammography Impressions 09/15/2024 1:35 PM PATIENT ATTENDANT The biopsy clips are in the appropriate position. RECOMMENDATION: Please See Recent Biopsy Report ASSESSMENT: 12: Post Procedure Mammograms for Marker Placement Narrative 09/15/2024 1:35 PM PATIENT ATTENDANT EXAM: BI BREAST DIAGNOSTIC RIGHT POST PROCEDURE [...] for Marker Placement us Bina Vasques M.D. IMG BI PROCEDURES Final Res ult * BI Breast Diagnostic Left Post Procedure (09/15/2024 12:46 PM PATIENT ATTENDANT) Anatomical Region Laterality Modality Breast, Breast Imaging RST L OS, Breast Imaging ARZ LOS, Breast Imaging FLA LOS Left Mammography Impressions 09/15/2024 1:24 PM PATIENT ATTENDANT The biopsy clip is in the appropriate position. RECOMMENDATION: Please See Recent Biopsy Report ASSESSMENT: 12: Post Procedure Mammograms for Marker Placement Narrative 09/15/2024 1:24 PM PATIENT ATTENDANT EXAM: BI BREAST DIAGNOSTIC LEFT POST PROCEDURE [...] for Marker Placement us Bina Vasques M.D. IMG BI PROCEDURES Final Res ult * MR Breast Biopsy Left with Guidance (09/15/2024 12:30 PM PATIENT ATTENDANT) Anatomical Region Laterality Modality Breast, Breast Imaging RST L OS, Breast Imaging ARZ LOS, Breast Imaging FLA LOS Left Magnetic Resonance Addenda Addendum by Kj Wong M.D. on 11/22/2024 12:53 PM CDT ADDENDUM: AMENDMENT TO ADD SURGICAL BIOPSY DATA FOR AUDIT PURPOSES. PLEASE SEE SEPARATE PATHOLOGY REPORT FOR COMPLETE INFORMATION. SURGERY DATE (MM/DD/YYYY): 10/30/2024 SURGERY SIDE: Left SURGERY TYPE: Mastectomy PATHOLOGY: Ductal carcinoma in situ CATEGORY: Malignant TUMOR SIZE (mm): 3 CLOSEST MARGIN (mm): 10 NIPPLE INVOLVEMENT: No. SURGICAL GRADE: N/A SURGICAL GRADE CHANGE: N/A ESTROGEN RECEPTOR STATUS: Positive PROGESTERONE RECEPTOR STATUS: Positive HER2 jacquie IHC STATUS: Not tested HER2 jacquie FISH STATUS: Not tested S-PHASE FRACTION (%): N/A Ki-67 FRACTION (%): N/A NUMBER OF NODES EVALUATED: None. NUMBER OF NODES POSITIVE: Not applicable REGIONAL LYMPH NODES: N/A TUMOR CLASSIFICATION: Tis - Carcinoma in situ RECOMMENDATION: Amendment 2 Complete ASSESSMENT: 10: Pathology Malignant. Addendum by Kj Wong M.D. on 09/19/2024 1:37 PM PATIENT ATTENDANT ADDENDUM: AMENDMENT TO ADD PATHOLOGY AND CONCORDANCE RESULTS. PLEASE SEE SEPARATE PATHOLOGY REPORT FOR COMPLETE INFORMATION. 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 CATEGORY: Malignant RAD-PATH CONCORDANCE: Yes. ACR COMPLICATIONS: None. RECOMMENDATION: Surgical Consult Multidisciplinary management recommended for bilateral breast cancer. ASSESSMENT: 10: Pathology Malignant. Impressions 09/15/2024 12:45 PM PATIENT ATTENDANT Successful image-guided needle biopsy. When final pathology results are available a revised report will be issued which will include radiologic/pathologic concordance and recommendations. Please be aware that in discordant cases, surgical consultation may be recommended even with a benign pathology result. RECOMMENDATION: Waiting for Pathology ASSESSMENT: 7: Waiting for Pathology. EP Narrative 09/15/2024 12:45 PM PATIENT ATTENDANT EXAM: MR BREAST BIOPSY LEFT WITH GUIDANCE [...] medications. PATIENT EDUCATION: Provided by a care development team lead. Ready to learn, no apparent learning barriers [...] medications. PATIENT EDUCATION: Provided by a care development team lead. Ready to learn, noapparent learning barriers were [...] Waiting for Pathology. EP Bina Vasques M.D. IM[facility]atie MRI PROCEDURES Edited R esult - Final * MR Breast Biopsy Right Additional Lesion with Guide (09/15/2024 12:28 PM PATIENT ATTENDANT) Anatomical Region Laterality Modality Breast, Breast Imaging RST L OS, Breast Imaging ARZ LOS, Breast Imaging FLA LOS Right Magnetic Resonance Addenda Addendum by Kj Wong M.D. on 09/18/2024 2:39 PM PATIENT ATTENDANT ADDENDUM: AMENDMENT TO ADD PATHOLOGY AND CONCORDANCE RESULTS. PLEASE SEE SEPARATE PATHOLOGY REPORT FOR COMPLETE INFORMATION. PATHOLOGY: Fibrocystic changes including dilated ducts, fragment suggestive of intraductal papilloma, focal usual ductal hyperplasia and background dense stromal fibrosis. CATEGORY: Benign RAD-PATH CONCORDANCE: Yes. ACR COMPLICATIONS: None. RECOMMENDATION: Individualized Recommendation Multidisciplinary management recommended for known right breast cancer. ASSESSMENT: 8: Pathology Benign. Impressions 09/15/2024 12:57 PM PATIENT ATTENDANT Successful image-guided needle biopsy. When final pathology results are available a revised report will be issued which will include radiologic/pathologic concordance and recommendations. Please be aware that in discordant cases, surgical consultation may be recommended even with a benign pathology result. RECOMMENDATION: Waiting for Pathology ASSESSMENT: 7: Waiting for Pathology. EP Narrative 09/15/2024 12:57 PM PATIENT ATTENDANT EXAM: MR BREAST BIOPSY RIGHT ADDITIONAL LESION [...] medications. PATIENT EDUCATION: Provided by a care development team lead. Ready to learn, no apparent learning barriers were identified. Post-procedure care explained; patient expressed understanding of the content. Bina Vasques M.D. IM MRI PROCEDURES Edited R esult - Final * MR Breast Biopsy Right with Guidance (09/15/2024 12:27 PM PATIENT ATTENDANT) Anatomical Region Laterality Modality Breast, Breast Imaging RST L OS, Breast Imaging ARZ LOS, Breast Imaging FLA LOS Right Magnetic Resonance Addenda Addendum by Kj Wong M.D. on 11/22/2024 12:53 PM CDT ADDENDUM: AMENDMENT TO ADD SURGICAL BIOPSY DATA FOR AUDIT PURPOSES. PLEASE SEE SEPARATE PATHOLOGY REPORT FOR COMPLETE INFORMATION. SURGERY DATE (MM//YYYY): 10/30/2024 SURGERY SIDE: Right SURGERY TYPE: Mastectomy PATHOLOGY: Invasive ductal carcinoma, Lobular carcinoma in situ (LCIS) CATEGORY: TUMOR SIZE (mm): 9 CLOSEST MARGIN (mm): 7 NIPPLE INVOLVEMENT: No. SURGICAL GRADE: 2 SURGICAL GRADE CHANGE: Match ESTROGEN RECEPTOR STATUS: Positive PROGESTERONE RECEPTOR STATUS: Positive HER2 jacquie IHC STATUS: 1+ HER2 jacquie FISH STATUS: Negative S-PHASE FRACTION (%): N/A Ki-67 FRACTION (%): 7 NUMBER OF NODES EVALUATED: 4. NUMBER OF NODES POSITIVE: 1 REGIONAL LYMPH NODES: N1 - 1-3 lymph nodes with metastasis TUMOR CLASSIFICATION: T1b - More than 0.5cm but not more than 1cm in greatest dimension RECOMMENDATION: Amendment 2 Complete ASSESSMENT: 10: Pathology Malignant. Addendum by Kj Wong M.D. on 09/18/2024 2:22 PM PATIENT ATTENDANT ADDENDUM: AMENDMENT TO ADD PATHOLOGY AND CONCORDANCE RESULTS. PLEASE SEE SEPARATE PATHOLOGY REPORT FOR COMPLETE INFORMATION. PATHOLOGY: Invasive lobular carcinoma, preliminary [place] grade II (of III), measuring 4 mm in greatest linear extent. Lobular carcinoma in situ (LCIS), classic and focal pleomorphic types. CATEGORY: Malignant RAD-PATH CONCORDANCE: Yes. ACR COMPLICATIONS: None. RECOMMENDATION: Surgical Consult ASSESSMENT: 10: Pathology Malignant. Impressions 09/15/2024 12:45 PM PATIENT ATTENDANT Successful image-guided needle biopsy. When final pathology results are available a revised report will be issued which will include radiologic/pathologic concordance and recommendations. Please be aware that in discordant cases, surgical consultation may be recommended even with a benign pathology result. RECOMMENDATION: Waiting for Pathology ASSESSMENT: 7: Waiting for Pathology. EP Narrative 09/15/2024 12:45 PM PATIENT ATTENDANT EXAM: MR BREAST BIOPSY RIGHT WITH GUIDANCE [...] medications. PATIENT EDUCATION: Provided by a care development team lead. Ready to learn, no apparent learning barriers [...] medications. PATIENT EDUCATION: Provided by a care development team lead. Ready to learn, noapparent learning barriers were [...] for Pathology. EP us Bina Vasques M.D. [facility] [place] PROCEDURES Edited R esult - Final * Surgical Pathology (09/15/2024 11:52 AM PATIENT ATTENDANT) Only the most recent of3 resultswithin the time period is included. 09/18/2024 2:20 PM PATIENT ATTENDANT DTL Participated in the Interpretation Colten Cagle M.D.-Pathology Resident 09/18/2024 2:20 PM PATIENT ATTENDANT DTL Report electronically signed by Chris GilbertBNataliaS., Ph.D. I verify that I have examined all relevant slides/materials for the specimen(s) and rendered or confirmed the diagnosis. Seen in consultation with: Carly Durbin M.D. 09/18/2024 2:20 PM PATIENT ATTENDANT DTL Gross Description Received in formalin labeled with patient's name, medical record number, and breast, right, site 2 are multiple pale rutherford fibroadiposetissue cores and three fragments, ranging from 0.1-1.7 cm in length and measuring 0.3 cm in average diameter. The specimens aresubmitted EN toto as follows: A1-A6: Two cores in each cassette A7: Three fragments Grossed by LMB. 09/18/2024 2:20 PM PATIENT ATTENDANT DTL Interpretation FINAL DIAGNOSIS Breast, Right site [...] assessment of this case. 09/18/2024 2:20 PM PATIENT ATTENDANT DTL Biopsy (Breast, Right) 09/15/2024 9:47 AM PATIENT ATTENDANT Bina Vasques M.D. LAB SURG PATH ORDERABLES Fi nal Result [facility] [address] [place] [address], [facility] DT [address] [place] [address] * EVENT MONITOR - ALL CHARGES (09/09/2024 11:59 PM PATIENT ATTENDANT) 08/11/2024 10:5 2 PM PATIENT ATTENDANT Narrative LEANNA ARGUETA - 09/10/2024 12:40 PM PATIENT ATTENDANT 1. The patient was monitored from 08/11/2024 [...] supraventricular tachycardia was noted at 116 bpm. Barrel Stave Inspector: LINDA Roland / LINDA Farooq Procedure Note [...] supraventricular tachycardia was noted at 116 bpm. Barrel Stave Inspector: LINDA Roland / LINDA Farooq Tre Dumas M.D. CV CARDIAC SERVICES PROCEDU RES Final Result LEANNA ARGUETA NA * XR MAMMO POST CLIP PLCMT RT-Outside Mammogram (08/15/2024 1:50 PM PATIENT ATTENDANT) Narrative [facility] - 08/23/2024 1:52 PM PATIENT ATTENDANT This order has been created and auto-finalized [...] BI PROCEDURES Final R esult [facility] NA from Last 3 Months or Most Recently Relevant to Health Maintenance Insurance [facility] Advance Directives For more information, please contact: [phone] * Full Code (Latest Code Status on File) Date Activated Date Inactivated Comments 10/30/2024 6:22 PM 10/31/2024 5:13 PM Question Answer Comments Full Code: Discussed * Full Code Date Activated Date Inactivated Comments 10/30/2024 7:31 AM 10/30/2024 6:22 PM Question Answer Comments Full Code: Not Discussed Due to: Not medically appropriate Care Teams Laborer Heading Relationship Specialty Start Date End Date Elsewhere, Pcp PCP - General Internal Medicine 07/25/24
--- OUTSIDE RECORDS SUMMARY | 2024-12-06 20:54 | XMS_ITS | Encounter Summary ---
Author Organization [facility] Address [address] [place] [address] Care Team Providers Care Circulator Name Role Phone Elsewhere, Pcp Primary Care Provider Unavailabl e Encounter Details Date Type Department Care Team (Late st Contact Info) Description 11/02/2024 Clinical Communication Division of Breast and Melanoma Surgical Oncology in [place], [place] [address] [place] [phone] Brie Durant M.D. [address] [place] [phone] Social History Tobacco Use Types Packs/Day Years Used Date Smoking Tobacco: Never Passive Smoke Exposure: Past Smokeless Tobacco: Never Alcohol Use Standard Drinks/Week Comments Not Currently 0 (1 standard drink = 0.6 oz pur e alcohol) [facility] Utilities Answer Date Recorded In the past 12 months has [employer], gas, oil, or water [employer] threatened to shut off services in your [...] Date Recorded Employment status Working with temporary 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 I have a [facility] place to live 10/30/2024 Comments No Sex and Gender Information Value Date Recorded Sex Assigned at Female 07/25/2024 9:49 AM CORPORATE COUNSELOR Legal Sex Female 6:01 PM CORPORATE COUNSELOR Gender Identity Female 07/25/2024 9:49 AM CORPORATE COUNSELOR Sexual Orientation Straight 07/25/2024 9: 49 AM CORPORATE COUNSELOR documented as of this encounter Miscellaneous Notes * Telephone Encounter - Brie Durant M.D. - 11/02/2024 1:51 PM CDT I have reviewed the portal pictures uploaded by Ms. Ayers and reviewed with Dr. Mcclendon of plastic surgery. Dr. Mcclendon would like a broader picture that includes the superior flap and to keep the silk tape on for now. I have discussed this with Ms. Ayers's The photos do not show any signs ofinfection or hematoma but we will review the more broader picture when they can upload it. For now she will continue stripping the drain once to twice a day. documented in this encounter Plan of Treatment Upcoming Encounters Date Type Department Care Team (Late st Contact Info) Description 12/07/2024 10:15 AM CDT Appointment Department of Radiation Oncology in [place], [place] [address] [place] [phone] Tim Navarro M.D., Ph.D. [address] [place] [phone] 12/07/2024 11:30 AM CDT Appointment Department of Radiation Oncology in [place], [place] [address] [place] [phone] Tim Navarro M.D., Ph.D. [address] [place] [phone] Christy Wade R.N. [address] [place] [phone] 12/07/2024 12:20 PM CDT Appointment Department of Radiology, [facility], in [place], [place] [address] [place] [phone] Meghna Soto M.B., B.Ch. [address] [place] [phone] 12/07/2024 2:40 PM CDT Office Visit Department of Oncology in [place], [place] [address] [place] [phone] Meghna Soto M.B., B.Ch. [address] [place] [phone] 12/08/2024 8:00 AM CDT Telemedicine Department of Oncology in [place], [place] [address] [place] [phone] Haim Mueller APRN, C.N.P., D.N.P. [address] [place] [phone] Brooklyn Lombardi P.A.-C., M.S. [address] [place] [phone] 12/15/2024 10:00 AM CDT Virtual Visit Department of Cardiovascular Medicine in [place], [place] [address] [place] [phone] Soto Ta M.D., Ph.D. [address] [place] [phone] 02/05/2025 9:30 AM CDT Infusion Department of Infusion Therapy in [place], [place] [address] [place] [phone] Meghna Soto M.B., B.Ch. [address] [place] [phone] documented as of this encounter Visit Diagnoses Not on filedocumented in this encounter Additional Health Concerns Assessment Noted Time PHQ-9 Depression Total Score: 3 10/28/19 25 9:43 AM CDT documented as of this encounter Care Teams Circulator Relationship Specialty Start Date End Date Elsewhere, Pcp PCP - General Internal Medicine 07/25/24 documented as of this encounter
--- OUTSIDE RECORDS SUMMARY | 2024-12-06 20:54 | XMS_ITS | Encounter Summary ---
Author Organization [facility] Address [address] [place] [phone] Care Team Providers Care Guest Services Coordinator Name Role Phone Elsewhere, Pcp Primary Care Provider Unavailabl e Encounter Details Date Type Department Care Team (Late st Contact Info) Description 11/04/2024 Orders Only Department of Oncology in [place], [place] [address] [place] [phone] Meghna Soto M.B., B.Ch. [address] [place] [phone] Social History Tobacco Use Types Packs/Day Years Used Date Smoking Tobacco: Never Passive Smoke Exposure: Past Smokeless Tobacco: Never Alcohol Use Standard Drinks/Week Comments Not Currently 0 (1 standard drink = 0.6 oz pur e alcohol) [facility] Utilities Answer Date Recorded In the past 12 months has [employer], gas, oil, or water [employer] threatened to shut off services in your [...] Date Recorded Employment status Working with temporary [employer] 07/25/2024 Housing Stability Answer Date Recorded What is your living situation today? I have a [facility] place to live 10/30/2024 Comments No Sex and Gender Information Value Date Recorded Sex Assigned at Female 07/25/2024 9:49 AM X RAY TECHNOLOGIST Legal Sex Female 6:01 PM X RAY TECHNOLOGIST Gender Identity Female 07/25/2024 9:49 AM X RAY TECHNOLOGIST Sexual Orientation Straight 07/25/2024 9 :49 AM X RAY TECHNOLOGIST documented as of this encounter Plan of Treatment Upcoming Encounters Date Type Department Care Team (Late st Contact Info) Description 12/07/2024 10:15 AM CDT Appointment Department of Radiation Oncology in [place], [place] [address] [place] [phone] Tim Navarro M.D., Ph.D. [address] [place] [phone] 12/07/2024 11:30 AM CDT Appointment Department of Radiation Oncology in [place], [place] [address] [place] [phone] Tim Navarro M.D., Ph.D. [address] [place] [phone] Christy Wade R.N. [address] [place] [phone] 12/07/2024 12:20 PM CDT Appointment Department of Radiology, [facility], in [place], [place] [address] [place] [phone] Meghna Soto M.B., B.Ch. [address] [place] [phone] 12/07/2024 2:40 PM CDT Office Visit Department of Oncology in [place], [place] [address] [place] [phone] Meghna Soto M.B., B.Ch. [address] [place] [phone] 12/08/2024 8:00 AM CDT Telemedicine Department of Oncology in [place], [place] [address] [place] [phone] Haim Mueller, KRISSY, C.N.P., D.N.P. [address] [place] [phone] Brooklyn Lombardi, PLety.-C., M.S. [address] [place] [phone] 12/15/2024 10:00 AM CDT Virtual Visit Department of Cardiovascular Medicine in [place], [place] [address] [place] [phone] Soto Ta M.D., Ph.D. [address] [place] [phone] 02/05/2025 9:30 AM CDT Infusion Department of Infusion Therapy in [place], [place] [address] [place] [address] Meghna Soto M.B., B.Ch. [address] [place] [phone] documented as of this encounter Visit Diagnoses Not on filedocumented in this encounter Additional Health Concerns Assessment Noted Time PHQ-9 Depression Total Score: 3 10/28/19 25 9:43 AM CDT documented as of this encounter Care Teams Guest Services Coordinator Relationship Specialty Start Date End Date Elsewhere, Pcp PCP - General Internal Medicine 07/25/24 documented as of this encounter
--- OUTSIDE RECORDS SUMMARY | 2024-12-06 20:54 | XMS_ITS | Encounter Summary ---
Author Organization [facility] Address [address] [place] [address] Care Team Providers Care Engagement Specialist Name Role Phone Elsewhere, Pcp Primary Care Provider Unavailabl e Encounter Details Date Type Department Care Team (Late st Contact Info) Description 10/30/2024 2:15 PM CDT Ancillary Procedure Department of Laboratory Medicine Social History Tobacco Use Types Packs/Day Years Used Date Smoking Tobacco: Never Passive Smoke Exposure: Past Smokeless Tobacco: Never Alcohol Use Standard Drinks/Week Comments Not Currently 0 (1 standard drink = 0.6 oz pur e alcohol) [facility] Utilities Answer Date Recorded In the past [...] Date Recorded Employment status Working with temporary 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 I have a [facility] place to live 10/30/2024 Comments No Sex and Gender Information Value Date Recorded Sex Assigned at Female 07/25/2024 9:49 AM STORE CUSTODIAN Legal Sex Female 6:01 PM STORE CUSTODIAN Gender Identity Female 07/25/2024 9:49 AM STORE CUSTODIAN Sexual Orientation Straight 07/25/2024 9: 49 AM STORE CUSTODIAN documented as of this encounter Plan of Treatment Upcoming Encounters Date Type Department Care Team (Late st Contact Info) Description 12/07/2024 10:15 AM CDT Appointment Department of Radiation Oncology in [place], [place] [address] [place] [phone] Tim Navarro M.D., Ph.D. [address] [place] [phone] 12/07/2024 11:30 AM CDT Appointment Department of Radiation Oncology in [place], [place] [address] [place] [phone] Tim Navarro M.D., Ph.D. [address] [place] [phone] Christy Wade R.N. [address] [place] [phone] 12/07/2024 12:20 PM CDT Appointment Department of Radiology, [facility], in [place], [place] [address] [place] [phone] Meghna Soto M.B., B.Ch. [address] [place] [phone] 12/07/2024 2:40 PM CDT Office Visit Department of Oncology in [place], [place] [address] [place] [phone] Meghna Soto M.B., B.Ch. [address] [place] [phone] 12/08/2024 8:00 AM CDT Telemedicine Department of Oncology in [place], [place] [address] [place] [phone] Haim Mueller, KRISSY, C.N.P., D.N.P. [address] [place] [phone] Brooklyn Lombardi, P.Philippe.-C., M.S. [address] [place] [phone] 12/15/2024 10:00 AM CDT Virtual Visit Department of Cardiovascular Medicine in [place], [place] [address] [place] [phone] Soto Ta M.D., Ph.D. [address] [place] [phone] 02/05/2025 9:30 AM CDT Infusion Department of Infusion Therapy in [place], [place] [address] [place] [phone] Meghna Soto M.B., B.Ch. [address] [place] [phone] documented as of this encounter Procedures Procedure Name Priority Date/Time Associated Diagnosis Comments PATHOLOGY IMAGE EXAM Routine 10/30/2024 2:15 PM CDT documented in this encounter Results * Specimen-Pathology Image Exam (10/30/2024 2:15 PM [...] IMAGING PROCE DURES Final Result IIMS NA documented in this encounter Visit Diagnoses Not on filedocumented in this encounter Additional Health Concerns Assessment Noted Time PHQ-9 Depression Total Score: 3 10/28/19 25 9:43 AM CDT documented as of this encounter Care Teams Engagement Specialist Relationship Specialty Start Date End Date Elsewhere, Pcp PCP - General Internal Medicine 07/25/24 documented as of this encounter
--- OUTSIDE RECORDS SUMMARY | 2024-12-06 20:54 | XMS_ITS | Encounter Summary ---
Author Organization [facility] Address [address] [place] [address] Care Team Providers Care It Help Desk Analyst Name Role Phone Elsewhere, Pcp Primary Care Provider Unavailabl e Encounter Details Date Type Department Care Team (Late st Contact Info) Description 11/03/2024 Clinical Communication Division of Breast and Melanoma Surgical Oncology in [place], [place] [address] [place] [phone] Hieu Granda M.D. [address] [place] [phone] Social History Tobacco Use Types Packs/Day Years Used Date Smoking Tobacco: Never Passive Smoke Exposure: Past Smokeless Tobacco: Never Alcohol Use Standard Drinks/Week Comments Not Currently 0 (1 standard drink = 0.6 oz pur e alcohol) [place] Utilities Answer Date Recorded In the past 12 months has [employer], gas, oil, or water [employer] threatened to shut off services in your [...] Date Recorded Employment status Working with temporary [employer] 07/25/2024 Housing Stability Answer Date Recorded What is your living situation today? I have a [facility] place to live 10/30/2024 Comments No Sex and Gender Information Value Date Recorded Sex Assigned at Female 07/25/2024 9:49 AM BEHAVIOR SPECIALIST Legal Sex Female 6:01 PM BEHAVIOR SPECIALIST Gender Identity Female 07/25/2024 9:49 AM BEHAVIOR SPECIALIST Sexual Orientation Straight 07/25/2024 9: 49 AM BEHAVIOR SPECIALIST documented as of this encounter Miscellaneous Notes * Addendum Note - Hieu Granda M.D. - 11/03/2024 3:18 PM CDTAddended by: HIEU GRANDA on: 11/03/2024 03:18 PM Modules accepted: Orders * Telephone Encounter - Hieu Granda M.D. - 11/03/2024 3:12 PM CDT I spoke with Ms. Ayers regarding the final pathology report and her postoperative progress. She reports that still having the right central incision pain when the drain is stripped. I will send an oxycodone refill to her pharmacy. We reviewed the final pathology report. She will return for the sche duled followup visits on 11/08/24. I will also request a radiation oncology consult. She appreciatedthe phone call and had no other questions. She has our contact information to reach us in the interim with any concerns. documented in this encounter Plan of Treatment Upcoming Encounters Date Type Department Care Team ([facility] st Contact Info) Description 12/07/2024 10:15 AM CDT Appointment Department of Radiation Oncology in [address] [phone] Tim Navarro M.D., Ph.D. [address] [place] [phone] 12/07/2024 11:30 AM CDT Appointment Department of Radiation Oncology in [address] [phone] Tim Navarro M.D., Ph.D. [address] [place] [phone] Christy Wade R.N. [address] [place] [phone] 12/07/2024 12:20 PM CDT Appointment Department of Radiology, [facility], in [address] [phone] Meghna Soto M.B., B.Ch. [address] [place] [phone] 12/07/2024 2:40 PM CDT Office Visit Department of Oncology in [address] [phone] Meghna Soto M.B., B.Ch. [address] [place] [phone] 12/08/2024 8:00 AM CDT Telemedicine Department of Oncology in [place], [place] [address] [place] [phone] Haim Mueller, KRISSY, C.N.P., D.N.P. [address] [place] [phone] Brooklyn Lombardi P.A.-C., M.S. [address] [place] [phone] 12/15/2024 10:00 AM CDT Virtual Visit Department of Cardiovascular Medicine in [place], [place] [address] [place] [phone] Soto Ta M.D., Ph.D. [address] [place] [phone] 02/05/2025 9:30 AM CDT Infusion Department of Infusion Therapy in [place], [place] [address] [place] [phone] Meghna Soto M.B., B.Ch. [address] [place] [phone] documented as of this encounter Visit Diagnoses Not on filedocumented in this encounter Additional Health Concerns Assessment Noted Time PHQ-9 Depression Total Score: 3 10/28/19 9:43 AM CDT documented as of this encounter Care Teams It Help Desk Analyst Relationship Specialty Start Date End Date Elsewhere, Pcp PCP - General Internal Medicine 07/25/24 documented as of this encounter
--- OUTSIDE RECORDS SUMMARY | 2024-12-06 20:54 | XMS_ITS | Encounter Summary ---
Author Organization [facility] Address [address] [place] [address] Care Team Providers Care Levi Maker Name Role Phone Elsewhere, Pcp Primary Care Provider Unavailabl e Reason for Referral * Outpatient (Routine) - Closed Specialty Diagnoses / Procedures Referred By Safia garcia Referred To Contact Plastic Surgery Diagnoses 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) Brie Durant M.D. [address] [place] [phone] Phone: tel: fax: [facility] Referral ID Status Reason Start Date Expiration Date Visits Re quested Visits Authorized [id number] Closed 09/25/2024 03/27/2026 1 1 Scheduling Instructions Please schedule with Dr. Mcclendon per Nayla Solano. Thank you! D PROTECTION MANAGER Encounter Details Date Type Department Care Team (Late st Contact Info) Description 09/21/2024 Clinical Communication Division of Plastic Surgery in [place], [place] [address] [place] [phone] Foster Mcclendon B.M., B.Ch., Ph.D. [address] [place] [phone] Social History Tobacco Use Types Packs/Day Years Used Date Smoking Tobacco: Never Passive Smoke Exposure: Past Smokeless Tobacco: Never Alcohol Use Standard Drinks/Week Comments Not Currently 0 (1 standard drink = 0.6 oz pur e alcohol) [facility] Utilities Answer Date Recorded In the [...] your living situation today? [facility] 07/25/2024 Comments No Sex and Gender Information Value Date Recorded Sex Assigned at Female 07/25/2024 9:49 AM BRAND PROTECTION MANAGER Legal Sex Female 6:01 PM BRAND PROTECTION MANAGER Gender Identity Female 07/25/2024 9:49 AM BRAND PROTECTION MANAGER Sexual Orientation Straight 07/25/2024 9: 49 AM BRAND PROTECTION MANAGER documented as of this encounter Plan of Treatment Upcoming Encounters Date Type Department Care Team (Late st Contact Info) Description 12/07/2024 10:15 AM CDT Appointment Department of Radiation Oncology in [place], [place] [address] [place] [phone] Tim Navarro M.D., Ph.D. [address] [place] [phone] 12/07/2024 11:30 AM CDT Appointment Department of Radiation Oncology in [place], [place] [address] [place] [phone] Tim Navarro M.D., Ph.D. [address] [place] [phone] Christy Wade R.N. [address] [place] [phone] 12/07/2024 12:20 PM CDT Appointment Department of Radiology, [facility], in [place], [place] [address] [place] [phone] Meghna Soto M.B., B.Ch. [address] [place] [phone] 12/07/2024 2:40 PM CDT Office Visit Department of Oncology in [address] [phone] Meghna Soto M.B., B.Ch. [address] [place] [phone] 12/08/2024 8:00 AM CDT Telemedicine Department of Oncology in [address] [phone] Haim Mueller APRN, C.N.P., D.N.P. [address] [place] [phone] Brooklyn Lombardi P.A.-C., M.S. [address] [place] [phone] 12/15/2024 10:00 AM CDT Virtual Visit Department of Cardiovascular Medicine in [place], [place] [address] [place] [phone] Soto Ta M.D., Ph.D. [address] [place] [phone] 02/05/2025 9:30 AM CDT Infusion Department of Infusion Therapy in [place], [place] [address] [place] [phone] Meghna Soto M.B., B.Ch. [address] [place] [phone] Scheduled Referrals Name Type Priority Associated Diagnoses [...] Upper Limb (HCC) documented in this encounter Care Teams Levi Maker Relationship Specialty Start Date End Date Elsewhere, Pcp PCP - General Internal Medicine 07/25/24 documented as of this encounter
--- OUTSIDE RECORDS SUMMARY | 2024-12-06 20:54 | XMS_ITS | Encounter Summary ---
Author Organization [facility] Address [address] [place] [id number] Care Team Providers Care Residential Roofer Helper Name Role Phone Elsewhere, Pcp Primary Care Provider Unavailabl e Reason for Referral * Outpatient (Routine) - Authorized Specialty Diagnoses / Procedures Referred By Contac t Referred To Contact Medical Oncology / Oncology Diagnoses 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) Stress Anxiety Ana Kinsey APRN, C.N.P., M.S.N. [address] [place] [phone] Phone: tel: fax: [facility] Referral ID Status Reason Start Date Expiration Date V isits Requested Visits Authorized [id number] Authorized 11/08/2024 05/10/2026 1 1 Scheduling Instructions Do not schedule an early childhood services coordinator appointment. * Outpatient (Routine) - Authorized Specialty Diagnoses / Procedures Referred By Contac t Referred To Contact Diagnoses 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) Procedures BMD Bone Density Spine Hips Meghna Soto M.B., B.Ch. [address] [place] [phone] Phone: tel: fax: [facility] Referral ID Status Reason Start Date Expiration Date V isits Requested Visits Authorized [id number] Authorized 11/08/2024 02/08/2026 1 1 * Outpatient (Routine) - Authorized Specialty Diagnoses / Procedures Referred By Safia t Referred To Contact Oncology Meghna Soto M.B., B.Ch. [address] [place] [phone] Phone: tel: fax: Meghna Soto M.B., B.Ch. [address] [place] [phone] Phone: tel: fax: Referral ID Status Reason Start Date Expiration Date V isits Requested Visits Authorized [id number] Authorized 11/08/2024 05/10/2026 1 1 Reason for Visit * Outpatient (Routine) - Closed Specialty Diagnoses / Procedures Referred By Contac t Referred To Contact Medical Oncology / Oncology Diagnoses 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) Brie Durant M.D. [address] [place] [phone] Phone: tel: fax: [facility] Referral ID Status Reason Start Date Expiration Date Visits Re quested Visits Authorized [id number] Closed 09/19/2024 03/21/2026 1 1 Encounter Details Date Type Department Care Team (Latest Contact Info) Description 11/08/2024 10:00 AM CDT Comprehensive Visit Department of Oncology in [place], [place] [address] [place] [phone] Meghna Soto M.B., B.Ch. [address] [place] [phone] 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) (Primary Dx); Genetic Susceptibility To Breast Malignant Neoplasm; Stress; Anxiety Social History Tobacco Use Types Packs/Day Years Used Date Smoking Tobacco: Never Passive Smoke Exposure: Past Smokeless Tobacco: Never Alcohol Use Standard Drinks/Week Comments Not Currently 0 (1 standard drink = 0.6 oz pur e alcohol) [facility] Utilities Answer Date Recorded In the [...] your living situation today? 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 Legal Sex Female 6:01 PM TRAILER ASSEMBLER Gender Identity Female 07/25/2024 9:49 AM TRAILER ASSEMBLER Sexual Orientation Straight 07/25/2024 9: 49 AM TRAILER ASSEMBLER documented as of this encounter Last Filed Vital Signs Vital Sign Reading Time Taken Comments Blood Pressure 127/84 11/08/2024 9:42 AM CDT Pulse 83 11/08/2024 9:42 AM CDT Temperature 37.2 C (99 F) 11/08/2024 9:42 AM CDT Respiratory Rate 16 11/08/2024 9:42 AM CDT Oxygen Saturation 98% 11/08/2024 9:4 2 AM CDT Inhaled Oxygen Concentration - - Weight 79.5 kg (175 lb 6 oz) 11/08/2024 9:42 AM CDT wearing the drains from surgery Height 165.3 cm (5' 5.08) 11/08/2024 9 :42 AM CDT Body Mass Index 29.11 11/08/2024 9:42 AM CDT documented in this encounter Consult Notes * Meghna Soto M.B., B.Ch. - 11/08/2024 10:00 AM CDT Medical Oncology Supervisory Note Diagnoses: Invasive lobular carcinoma of the right breast, grade II, ER-positive (91-100%), NC-positive (91-100%), HER2-negative (score of 1+ by IHC), Ki67 5-10 %, pT1b(m) pN1a Mx (2024) Cancer Staging Cancer Breast Ductal In Situ Left Staging form: Breast, AJCC 8th Edition - Pathologic stage from 10/30/2024: Stage Unknown (pTis (DCIS), pNX, ER+, NC+, HER2: Not Assessed) 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) Staging form: Breast, AJCC 8th Edition - Pathologic stage from 10/30/2024: Stage IA (pT1b, pN1a(sn), cM0, G2, ER+, NC+, HER2-) Current Therapy: None Current Disease Status: Not evaluated ECOG Performance Status: 1 Intent of Therapy: Curative Intent to Change Therapy: Not applicable (baseline or planning visit) Briefly, Maryam Mehta is a 54 y.o. premenopausal at diagnosis female currently living at [address] [place] [address] [place] [phone], who was recently diagnosed with a right sided invasive breast cancer. She is status post-surgery and presents to discuss options for systemic therapy moving forward. We had a long discussion today. We reviewed local and systemic aspects of breast cancer care. We reviewed pertinent imaging and pathology. We reviewed that the goals of treatment are curative. With regards to local therapy, the patient underwent bilateral mastectomies and right SLNB under DrShakeelack. Final pathology revealed left-sided DCIS and right- sided invasive lobular carcinoma, multifocal, largest tumor measuring 9 mm in dimension; 1 of 3 evaluated sentinel lymph nodes involved with metastatic deposits. She is making a good postoperative recovery. Radiation Oncology Consult pending. With regards to systemic therapy, we reviewed that the goal is to eradicate systemic micrometastases and reduce the incidence of breast cancer recurrence and breast cancer related . We reviewed that genomic assays can help determine whether adjuvant chemotherapy is needed. We discussed Oncotype DX testing, the concept of recurrence scores, and the predictive and prognostic information this test can provide. The patient elected to proceed with Oncotype DX testing. We briefly discussed that options for adjuvant chemotherapy would be either docetaxel and cyclophosphamide chemotherapy (TC) given intravenously for 4 cycles once every 3 weeks with Neulasta support,or Adriamycin and cyclophosphamide intravenously once every 2 weeks, also with Neulasta support, for 4 cycles (8 weeks), followed by weekly paclitaxel x 12 (12 weeks) I.e. dose dense AC-T (20 weeks). Adjuvant endocrine therapy will be an important component of her care. We reviewed the scheduling, rationale and potential side-effects of tamoxifen and the aromatase inhibitors. We discussed indications for ovarian function suppression in premenopausal women. Written patient information was provided. In this patient's case, I would recommend 10 years of endocrine therapy overall, with letrozole and an AI q 3 monthly until she is postmenopausal. We will call in a trial prescription to her preferred pharmacy on file and recommended starting same 1-2 weeks after radiation, if pursued. We reviewed that she should contact us after 1 month to assess tolerance. We reviewed that she may also be a candidate for adjuvant abemaciclib for 2 years, per the MONARCH E trial. However, the tumor was grade II only with a low Ki67. We discussed the scheduling, rationale, potential side effects of this therapy. We will decide later. Clinical Trials: There are no therapeutic trials at [facility] ([facility]) for which the patient is currently a candidate. Genetic Testing: Yes. 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 We reviewed that checking in with Medical Genetics every couple of years for updates is advisable, as well as for screening recommendation. Bone Health: New baseline needed: (Y/N). We reviewed conservative measures to preserve bone density. Adjuvant Zometa 4mg IV at q 6 monthly intervals for 3 years may be an option later. Would need fordental clearance beforehand. She is / is not interested in this option. Anticipated Treatment Sequence: Surgery +/- chemotherapy + radiation therapy + adjuvant endocrine therapy for 10 years +/- adjuvant CDK4/6i +/- bone directed therapy +/- clinical trial participation. Health maintenance: We reviewed that eating a balanced diet, moderating alcohol, exercising regularly, and maintaining a healthy weight can reduce the risk of breast cancer recurrence and many other medical co-morbidities. We discussed the importance of regular follow up with a PCP to address otherhealth issues and for preventative purposes. We can offer referrals to Nutrition and Integrative Onc ology as desired. We discussed that she should let us know if she is currently or planning on taking any dietary supplements or alternative/additional cancer directed medications. In this instance, we would want to check with our oncology pharmacist to check for potential drug drug interactions as many supplements are not subject to FDA review regarding the ingredients they include. We reviewed th at definitive data may not always exist. Sexual Health Concerns: We encouraged her to report any new symptoms of concern on cancer directed therapy and we can recommend interventions or consultations accordingly. Fertility and Contraception (Premenopausal only): The patient states that her family is complete. She is aware of the need for reliable, non-hormonal based contraception, given that local and systemic therapy for breast cancer can be teratogenic. Psychosocial: The patient is well supported by her partner and appears to be coping appropriately with her diagnosis. Tragically, her of a brain tumor approximately 3 years ago. Her own mother of cancer when she was 6 years old. She has 3 children, the youngest of whom is 14 yearsold. We offered our support and encouragement. We reviewed that consults with Cancer Psychology andMedical Social Work can be scheduled as needed. Her from cancer recently. Surveillance and Follow Up: Per ASCO guidelines in depth. In her case, I would recommend annual breast imaging going forward to include a 3D mammogram+/- supplementary imaging with MRI/MBI (Breast Density: C). She was advised to contact her team with any concerns for disease recurrence. She was informed that follow up with be with the breast clinic on [place] 2 at q. 6 monthly intervals moving forward if adjuvant chemotherapy is not recommended. Supportive Care and Treatment Logistics: Other Relevant Issues: Can consider systemic staging if patient would like. Disposition: The patient was grateful for the information provided to her today. She was provided with our contact details and encouraged to reach out if she has additional questions.The plan of caremoving forwards is as follows: -Oncotype DX (On 9mm tumor, node-positive) -Follow up with plastics, surgery, cardiology and cancer psychiatry as scheduled -DEXA scan -Radiation Oncology (11/27) -Integrative Oncology -RTC 1 month (Charles) It was a pleasure to meet with her today. Meghna Soto [facility] Director Writing Medical Oncologist Pager: [phone] * Ana Kinsey, KRISSY, C.N.P., M.S.N. - 11/08/2024 10:00 AM CDT Images from the original note were not included. SUBJECTIVE PRIMARY CARE PHYSICIAN ELSEWHERE, PCP [facility] [place] ONCOLOGIST Dr. Meghna Soto [phone]). PRIMARY ADVANCED PRACTICE PROVIDER: Ana Kinsey CNP ([phone]) Cancer Staging Cancer Breast Ductal In Situ Left Staging form: Breast, AJCC 8th Edition - Pathologic stage from 10/30/2024: Stage Unknown (pTis (DCIS), pNX, ER+, NC+, HER2: Not Assessed) 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) Staging form: Breast, AJCC 8th Edition - Pathologic stage from 10/30/2024: Stage IA (pT1b, pN1a(sn), cM0, G2, ER+, NC+, HER2-) Current Therapy: None-Baseline visit Current Disease Status: Not able to assess (baseline visit) ECOG Performance Status: 0 Intent of Therapy: Curative Intent to Change Therapy: Not applicable (baseline or planning visit) CHIEF COMPLAINT / REASON FOR VISIT Maryam Mehta is a 54 y.o. female who presents for evaluation of recently diagnosed and resected bilateral breast cancer, DCIS on the left and invasive lobular carcinoma on the right. Oncology History Malignant Neoplasm Of Breast Upper [...] (CC 36). Furtherevaluation with left diagnostic mammogram was recommended. Right breast ultrasound 08/11/2024: Right breast 10 o'clock axis, 8 cm from nipple hypoechoic spiculated mass measuring 0.9 x 0.6 x 0.9cm, corresponding to the mammographic finding. This mass underwent ultrasound-guided biopsy on 08/15/2024 yielding invasive lobular carcinoma per outside report. On post biopsy mammogram a vision shaped biopsy marker is seen in the expected location. 08/15/2024 Biopsy/Pathology August 15, 2024: Ultrasound-guided core needle biopsy of the right breast performed elsewhere andlater reviewed at [facility] showed Biopsy: Core biopsy, Right, 08/15/24 ; Clip: Vision. invasive lobular carcinoma; Grade: 2. Hormone receptor testing: Estrogen positive (91-100%), Progesterone positive (91-100%), HER2 1+ (negative), and Ki-67 (5-10%.) Per [facility] Review: Complete. 08/31/2024 Genetic Testing and Tumor Genotyping 09/01/2024 Initial Diagnosis September 01, 2024: Consultation with Dr. [facility]ques-[facility]. Additional imaging and biopsies recommended. 09/15/2024 Biopsy/Pathology Site 1: MRI guided biopsy of the right breast, 8 o'clock position, 3.5 cm posterior to the nipple showed invasive lobular carcinoma grade 2 (of 3) measuring 4 mm in greatest linear extent. LCIS, classic and focal pleomorphic types present. ER and NC 91-100% positive. HER2 Rosa negative with a score of 1+. Ki-67 7%. Site 2: MRI guided biopsy of right breast at the 3 o'clock position 1.5 cm from the nipple marked with a cylinder biopsy clip showed fibrocystic change. 10/30/2024 Surgery and Procedures October 30, 2024: Status post bilateral mastectomy and right axillary sentinel lymph node excision. Pathology from the RIGHT BREAST showed invasive lobular carcinoma grade 2 (of 3) forming 2 foci, 9 mm and 4 mm in greatest dimension. LCIS, classic and focal pleomorphic types present. Surgical margins negative with the closest margin 7 mm. Skin is present and involved. No angiolymphatic invasion present. Microcalcifications present in nonneoplastic tissue. Four sentinel lymph nodes were removed and 1 was positive for metastasis, 3 mm in size with no extranodal extension. 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 Surgical margins negative with the closest margin greater than 10 mm. Tis 10/30/2024 Pathologic Stage Staging form: Breast, AJCC 8th Edition - Pathologic stage from 10/30/2024: Stage IA (pT1b, pN1a(sn), cM0, G2, ER+, NC+, HER2-) Stage prefix: Initial diagnosis Method of lymph node assessment: [place] lymph node biopsy Nuclear grade: GX Multigene prognostic tests performed: None Histologic grading system: 3 grade system 11/08/2024 Other November 08, 2024: Consultation with Dr. Meghna Soto, [facility] Medical Oncology for adjuvant treatment discussion. 1. Oncotype DX testing on the 9 mm lesion (ordered 11/08/14) 2. Bone density testing 3. Begin Zoladex every 3 months 4. We will start letrozole 5. Based on Oncotype will decide on chemotherapy and/or a CDK4 6 inhibitor. 6. Radiation oncology consult pending for November,. Cancer Breast Ductal In Situ Left 09/15/2024 Biopsy/Pathology September 15, 2024: MRI guided biopsy of the left breast, 6 o'clock position, 6 cm from the nipple showed ductal carcinoma in-situ, low to intermediate grade, cribriform and solid type with associated microcalcifications. ER and NC 91-100% positive. 10/30/2024 Pathologic Stage Staging form: Breast, AJCC 8th Edition - Pathologic stage from 10/30/2024: Stage Unknown (pTis (DCIS), pNX, ER+, NC+, HER2: Not Assessed) Stage prefix: Initial diagnosis Multigene prognostic tests performed: None The patient verbally consented to an audio recording of their visit to assist with the completion of documentation. REVIEW OF SYSTEMS History of Present Illness Mrs. Maryam Mehta is a 54 year old female with breast cancer who presents for post-operative follow-up and management of breast cancer treatment. She is recovering from recent breast surgery and has been doing fairly well with postop pain management with the exception that she has been experiencing significant pain associated with the stripping of her surgical drains. She takes oxycodone nightly for pain relief, but its effectiveness has diminished over time, and she experiences side effects such as vivid dreams and auditory sensations of her blood pumping. She is hoping to have the surgical drains removed today. She describes a 'weird feeling' in her chest, similar to the sensation of milk letdown, but denies pain upon light touch to the chest wall. She experiences occasional numbness in her fingers and a chronic slight cough, which she attributes to postnasal drip. Her appetite has been affected post-surgery; she does not feel hungry but has cravings for specificfoods. Her menstrual cycles have been regular, with a recent light flow 22 days ago, but were heavier whenshe was on Eliquis. She is currently back on Eliquis post- surgery. Otherwise, she has noted no significant changes in her menstrual cycle frequency are flow other than comments at the blood consistency seems to be thinner as she ages. She has had no hot flashes or sleep disturbances associated withher menstrual cycles. She is on citalopram for anxiety. Her unfortunately of brain cancer several years ago and coming back to [place] for appointments has triggered some increase in anxiety for herself as well as for her children. She has a history of a patent foramen ovale (PFO) for which she was previously on Eliquis. She saysthat there are plans to eventually have the PFO closed. Her sleep is disturbed by nightmares, likely due to oxycodone, and she says that she has never chanda great sleeper. Rate your distress: 10 (extreme distress) (anixous about the visit for today) Current Medications[1] Past Medical History: Diagnosis Date Anxiety Generalized Disorder Diagnosed at age 46 Cancer Breast Personal History July 2024 Fibromyalgia Hyperlipidemia Hypertension NOS Migraine Headache november 2022 Patent Foramen Ovale (HCC) Stroke (HCC) 2022 Transient Ischemic Attack BREAST CANCER RISK PROFILE Uterus and ovaries intact. Menarche at age 13. First full-term delivery, age 28. Pre-menopausal. Oral contraceptive use for 5 years. No history of hormone replacement therap Social History Social History Narrative Patient stated her 3 years ago (in 2020) of Brain Cancer and was treated here at [facility]. She has 3 children; in 2024, her son is 25 and lives in [place]. Her 22-year-old daughter goes to graduate school in [facility] [employer]. Her youngest, a daughter is 14. She currently lives alone with youngest child (14). She does have a significant other. Nonsmoker. 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 Family History[2] FAMILY HISTORY OF CANCER Cancer Genetics consult done locally August 31, 2024. Family history as per that consult note. MATERNAL Mother with metastatic cancer diagnosed at age 25 and at age 27. Maternal grandmother with metastatic cancer diagnosed at age 59 and at 60. Uncertain if primary bone cancer versus bone metastasis. PATERNAL Paternal grandmother with colon cancer diagnosed age 96 and at 99. Half aunt (grandmother's daughter) diagnosed with unknown type cancer at unknown age. Currently age77. Half first cousin (daughter to above half aunt) diagnosed with breast cancer around age 58. Great-grandmother (grandmother's mother): colon cancer diagnosed at older age, at age 89-90. Great-aunt (grandmother's sister): colon cancer diagnosed at a older age, at age ~70. Ancestry: Maternal ancestry: [place]ican and Syrian. Paternal ancestry: Turkish and Ukrainian. No known Ashkenazi Alevism ancestry. Common Hereditary Cancers Panel (48 genes) via [employer]. Maryam was found to carry a pathogenic CHEK2 variant (mutation), denoted: c.1100del (p.[id number]*15). OBJECTIVE VITALS Vitals: 11/08/24 0942 BP: 127/84 BP Location: Left arm Patient Position: Sitting Cuff Size: Regular Pulse: 83 Resp: 16 Temp: 37.2 ??C TempSrc: Tympanic SpO2: 98% Weight: 79.5 kg Height: 165.3 cm PHYSICAL EXAMINATION General: Alert, well appearing female in no distress. Skin: [place] patch of discoloration to the right inferior medial clavicle area. No increased heat. Noevidence of cellulitis. Lymph: No palpable cervical, supraclavicular, infraclavicular adenopathy. Breasts: Breasts are surgically absent. Brief exam of the anterior chest wall reveals no erythema. Fading yellowish ecchymosis. Heart: Regular rate and rhythm with no murmur. Lungs: No wheezes, rales or rhonchi auscultated. No coughing or shortness of breath noted. Abdomen: Soft and nontender with no hepatomegaly or masses. Extremities: No upper or lower extremity edema. Mental: Alert and very pleasant. Mildly anxious appearing but not inappropriately so. LABORATORY DATA None. RADIOLOGICAL DATA Breast imaging reviewed. ASSESSMENT / PLAN #1 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) #2 Genetic Susceptibility To Breast Malignant Neoplasm Assessment & Plan Invasive lobular carcinoma of the right breast Mrs. Mehta is a very pleasant 54-year-old who is here today for discussions on adjuvant treatment of recently diagnosed and resected bilateral breast cancer. I have introduced myself as a nurse practitioner from the breast [facility] medical oncology team and she also met with Sarah Rowley, nurse practitioner on the team. She was provided with a patient information handout on the breast oncologists, nurse practitioners, nurse and pharmacist on our team as well as our contact information. She will be meeting with Dr. Flavio Singh this morning. Mrs. Mehta is making a good surgical recovery. She is hoping to have her surgical drains removed today. We reviewed the modalities of breast cancer treatment including surgery and radiation for treatmentof the breast and chemotherapy and hormonal therapy for systemic treatment to reduce the risk of breast cancer metastasis to organs and bone in the years ahead. We then reviewed her pathology information including the findings of invasive lobular carcinoma of the right breast, that is strongly estrogen and progesterone receptor-positive and that this is a favorable finding, HER2 is negative, also favorable, Grade 2 with a KI-67 of 5-10%, in 1 of the tumorsand the other tumor has a Ki-67 of 7% which indicates slow growth pattern of the cancer. Post-surgery, the focus is on systemic treatment to prevent recurrence. She is open to aggressive treatment for the best prognosis for her children. We discussed endocrine therapy and the rationale for such treatment. The potential toxicities associated with tamoxifen versus the aromatase inhibitors were discussed as follows: (i) Tamoxifen: an increased risk of deep venous thrombosis, endometrial hyperplasia or cancer, vasomotor instability, mood disturbance, vaginal discharge, and occasional night time leg cramps. (ii) anastrozole, letrozole, and exemestane: vasomotor instability, myalgias, arthralgias, hair thinning, vaginal dryness and a reduction in bone density. We did discuss the potential recommendation for Zoladex injections to suppress ovarian function if aromatase inhibitors are chosen. We also discussed the possible benefit of chemotherapy and the role of Oncotype DX testing to assess recurrence potential chemotherapy benefit. We discussed the categories of low, intermediate and high-risk of recurrence and the chemotherapy is typically discussed/recommended when recurrence scoresare in the high-risk of recurrence range. She is open to doing the Oncotype DX testing as she prefers aggressive treatment to minimize recurrence risk. A bone density test is ordered to monitor potential bone loss from aromatase inhibitors. Potential side effects of hormone therapy, including hot flashes, vaginal dryness, and joint stiffness, are discussed. Referral to a women's health clinic formanagement of menopausal symptoms is provided if needed. 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 The focus is on monitoring and preventing new breast cancer development. Post-surgical pain management She experiences pain related to surgical drains, managed with oxycodone at night. Pain is significant during drain stripping but subsides quickly. She experiences side effects from oxycodone, including vivid dreams and hearing blood pumping. Surgical drains will be removed as scheduled. Oxycodone will continue for pain management as needed, considering side effects. Menopausal symptoms She is concerned about the potential impact of hormone therapy for breast cancer treatment on menopausal symptoms. Management strategies for menopausal symptoms, including the potential impact of hormone therapy, are discussed. Anxiety Her anxiety is managed with citalopram. She expresses significant anxiety related to her cancer diagnosis and treatment, as well as concern for her children's well-being. Citalopram will continue foranxiety management. Emotional support and counseling are provided as needed. Fibromyalgia She has fibromyalgia with ongoing joint pain managed without medication. Symptoms will be monitoredand managed conservatively. Patent foramen ovale (PFO) She has a patent foramen ovale (PFO) with previous Eliquis use for stroke prevention during travel.Closure is postponed due to cancer treatment priorities. The plan for PFO closure will be reassessed after completion of cancer treatment. CHEK 2 mutation She may benefit from a consults in the future with [facility] Understandably, this is a difficult time for Mrs. Mehta and her children due to the of her in 2020 due to brain cancer. She is well-supported today by her significant other. I will discuss the above with Dr. Flavio Singh for further evaluation and recommendations. Addendum: the above was reviewed with Dr. Flavio Singh. We are going to proceed as follows: 1. Oncotype DX testing and see Dr. Flavio Singh back with results. Dr. Flavio Singh recommends testing the 9 mm breast cancer only. 2. Bone density testing 3. Begin Zoladex, preferring to have her first injection November 13, 2024. 4. Integrative Medicine consult to have assistance with stress management. PATIENT EDUCATION Ready to learn, no apparent learning barriers were identified; learning preferences include listening. Explained diagnosis and treatment plan; patient expressed understanding of the content. ADMINISTRATIVE BILLING I spent 104 minutes face to face and non-face to face caring for the patient today. [1] Current Outpatient Medications: acetaminophen (TylenoL) 500 mg tablet, Take 2 tablets (1,000 mg total) by mouth every 6 (six) hoursas needed for pain., Disp: , Rfl: albuterol 90 mcg/actuation inhaler, Inhale 2 puffs 4 (four) times a day as needed., Disp: , Rfl: apixaban (Eliquis) 2.5 mg tablet, Take 1 tablet (2.5 mg total) by mouth 2 (two) times a day. Take first dose the morning of 11/02., Disp: 56 tablet, Rfl: 0 cholecalciferol (Vitamin D3) 25 mcg (1,000 Unit) [...] , Rfl: melatonin 1 mg tablet, Take 3 mg by mouth at bedtime as needed for sleep., Disp: , Rfl: ondansetron ODT (Zofran-ODT) 4 mg disintegrating tablet, Dissolve 1 tablet (4 mg total) in the mouth every 8 (eight) hours as needed for nausea or vomiting., Disp: 20 tablet, Rfl: 0 oxyCODONE (Roxicodone) 5 mg immediate release tablet, Take 1 tablet (5 mg total) by mouth every 4 (four) hours as needed for pain Indication: Acute Pain., Disp: 10 tablet, Rfl: 0 sennosides-docusate sodium (Senna with Docusate Sodium) 8.6-50 mg per tablet, Take 1 tablet by mouth 2 (two) times a day., Disp: 100 tablet, Rfl: 0 [2] Family History Problem Relation Name Age of Onset Depression Father pal rawn Diabetes Father pal rawn Hypertension Father pal rawn Coronary artery disease Father pal rawn Hyperlipidemia Father pal rawn Anxiety disorder Father pal rawn Obesity Father pal rawn Sleep apnea Father pal rawn Skin cancer Father pal rawn removed cancerous area Clotting disorder Paternal Grandmother frederic rawn Diabetes Paternal Grandmother frederic rawn Hypertension Paternal Grandmother frederic rawn Stroke Paternal Grandmother frederic rawn early onset strokes starting at age 35 managed wit Coronary artery disease Paternal Grandmother frederic rawn Colon cancer Paternal Grandmother frederic raphael at age 99 Colon polyps Paternal Grandmother frederic rawn Lung cancer Paternal Grandmother frederic mathisn at age 98 ADD Son naty patel 13 Anxiety disorder Daughter felisa mehta ADD Daughter felisa mehta Autism test May 2024 - Felisa is mild support needs but is on the spectrum Breast cancer Mother arnoldo raphael in 1976 Other cancer Maternal Grandmother january sanam osteosarcoma Other (POTS) Daughter Ml Patel 12 Diagnosed at age 19 documented in this encounter Plan of Treatment Upcoming Encounters Date Type Department Care Team (Late st Contact Info) Description 12/07/2024 10:15 AM CDT Appointment Department of Radiation Oncology in [place], [place] [address] [place] [phone] Tim Navarro M.D., Ph.D. [address] [place] [phone] 12/07/2024 11:30 AM CDT Appointment Department of Radiation Oncology in [place], [place] [address] [place] [phone] Tim Navarro M.D., Ph.D. [address] [place] [phone] Christy Wade R.N. [address] [place] [phone] 12/07/2024 12:20 PM CDT Appointment Department of Radiology, [facility], in [place], [place] [address] [place] [address] Meghna Soto M.B., B.Ch. [address] [place] [phone] 12/07/2024 2:40 PM CDT Office Visit Department of Oncology in [place], [place] [address] [place] [phone] Meghna Soto M.B., B.Ch. [address] [place] [phone] 12/08/2024 8:00 AM CDT Telemedicine Department of Oncology in [place], [place] [address] [place] [phone] Haim Mueller APRN, C.NTosha, D.N.P. [address] [place] [phone] Brooklyn Lombardi P.A.-C., M.S. [address] [place] [phone] 12/15/2024 10:00 AM CDT Virtual Visit Department of Cardiovascular Medicine in [place], [place] [address] [place] [phone] Soto Ta M.D., Ph.D. [address] [place] [phone] 02/05/2025 9:30 AM CDT Infusion Department of Infusion Therapy in [place], [place] [address] [place] [phone] Meghna Soto M.B., B.Ch. [address] [place] [phone] Scheduled Orders Name Type Priority Associated Diagnoses Orde r Schedule BMD Bone Density Spine Hips Imaging RAD - Routine (most inpatients and all outpatients) 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) Expected: 11/08/2024, Expires: 11/08/2025 Scheduled Referrals Name Type Priority Associated Diagnoses Order Schedule Oncology office visit (clinic) Outpatient Referral Routine Expected: 12/07/2024, Expires: 02/08/2026 Oncology - Integrative Medicine consult (clinic) Outpatient Referral Routine 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) Stress Anxiety Expected: 11/08/2024, Expires: 02/08/2026 documented as of this encounter Procedures Procedure Name Priority Date/Time Associated Diagnosis Comments EXT ES ONCOTYPE DX BREAST RECURRENCE SCORE Routine 10/30/2024 2:00 PM CDT 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) documented in this encounter Results * EXT Oncotype DX Breast Recurrence Score (10/30/2024 2:00 PM CDT) EXT Recurrence Score Result 11 11/20/2024 2:56 PM CDT [facility] (CLIA #:[id number] ) EXT HER2 Score 9.6 11/20/2024 2:56 PM CDT [facility]. (CLIA #:[id number] ) EXT HER2 Interpretation Negative 11/20/2024 2:56 PM CDT [facility] (CLIA #:[id number] ) EXT ER Score 8.2 11/20/2024 2:56 PM CDT [facility] (CLIA #:[id number] ) EXT ER Interpretation Positive 11/20/2024 2:56 PM CDT [facility] (CLIA #:[id number] ) EXT NC Score 8.1 11/20/2024 2:56 PM CDT [facility] (CLIA #:[id number] ) EXT NC Interpretation Positive 11/20/2024 2:56 PM CDT [facility] (CLIA #:[id number] ) EXT Attached Report For complete result and interpretati on, see attached report 11/20/2024 2:56 PM CDT [facility] (CLIA #:[id number] ) Tissue (Other, Specify in Comments) 10/30/2024 2:00 PM CDT 11/14/2024 6:49 PM CDT Sarah Rowley APRN, C.N.P., D.N.P. LAB GENETIC TEST ING Final Result [facility] (CLIA #:[id number]) [address] [place] [address] [facility] (CLIA #:[id number]) [address] [place] [address] * Aura Exact Oncotype DX Breast Recurrence Score, Tissue - Sent Out Lab (10/30/2024 1:36 PM CDT) Aura Onco DX Breast Recurr Score, T Collected, Sent to Reference Lab DEFAULT 11/13/2024 1:06 PM CDT AURA Tissue (Other, Specify in Comments) 10/30/2024 1:36 PM CDT 11/13/2024 1:06 PM CDT Sarah oRwley APRN, C.N.P., D.N.P. LAB GENETIC TEST ING Final Result [facility] [address] [place] [address], 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
--- OUTSIDE RECORDS SUMMARY | 2024-12-06 20:55 | XMS_ITS | Clinical Summary ---
Author Organization [facility] Address [address] [place] [id number] Care Team Providers Care Research Program Internship Name Role Phone Shanelle Renee MD Primary Care Provide r Roxy Whaley RN Unavailable [phone] Kian English MD Unavailable [phone] Allergies Active Allergy Reactions Criticality Noted Date [...] pat ient 09/11/2024 Overview (09/11/2024): CHEK2 c.1100del (p.[id number]*15) Primary cancer of right breast 08/28/2024 Cancer Staging:Clinical stage from 08/28/2024:Stage IA(cT1b, cN0, cM0, G2, ER+, WI+, HER2-) - Signed by Kian English MD [...] Encounters Date Type Department Care Team Description 11/01/2024 10:40 AM CDT Office Visit [facility] [address] [place] [address] Alissa Matta PA Throat Problem (Wants strep test done ) 11/01/2024 Travel 10/30/2024 Orders Only [facility] Scanner 1 scan: (1-Ord) [facility], SURGICAL PATHOLOGY, 10/30/2024 10/13/2024 Orders Only [facility] Scanner 1 scan: (1-Ord) [facility], XR HAND LT MIN 3V, 10/13/2024 09/11/2024 Telephone [facility] [address] [place] [address] [place], [place], [facility] Results (Cancer genetic testing) from Last 3 Months Immunizations Immunization Administration Dates Next Due COVID-19 vaccine ([employer] NT[employer] 30mcg/0.3mL) PF MDBrittaney 12/27/2020,12/06/2020 Hepatitis A (Adult) 07/18/2014 Hepatitis B (Adult) 11/25/2011,11/03/2002,1997 Imovax 04/19/2021, 1,04/05/2021,2020 Influenza, IIV3 (Age >=3 years) 05/23/2013,04/30,09/19/2010 Influenza, IIV4 06/09/2018, 8,06/24/2016,2014 MMR 03/06/2010 Td (Age >=7 Years) 09/27/2017,12/13/1997 [...] ca ncer Maternal Grandmother (Age 52) br [facility] ca Maternal Uncle Mother (Age 28) breast ca. 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 Peterson ie Delivery Location:[facility] Filed Vital Signs Vital Sign Reading Time Taken Comments Blood Pressure 110/77 11/01/2024 10:46 AM CDT Pulse 83 11/01/2024 10:46 AM CDT Temperature 36.5 C (97.7 F) 11/01/2024 10:46 AM CDT Respiratory Rate 16 03/21/2024 9:10 AM CDT Oxygen Saturation 96% 11/01/2024 10:46 AM CDT Inhaled Oxygen Concentration - - Weight 82 kg (180 lb 11.2 oz) 11/01/2024 10:46 A M CDT Height 165.1 cm (5' 5) 07/19/2024 12:03 PM VEST PRESSER Body Mass Index 30.07 07/19/2024 12:03 PM VEST PRESSER Plan of Treatment Health Maintenance Due Date Last Done Comments Hepatitis C screening for ag e 18-79 1988 Pneumococcal series for age 50+ (1 of 2 - PCV) 1989 Zoster (shingles) series for age 50+ (1 of 2) 1989 COVID-19 vaccine series (3 - Pfizer risk series) 01/24/2021 12/27/2020, 12/06/2020 Influenza Vaccine (Season Ended) 2025 06/09/2018, 09/21/2017, 06/24/2016, Additional history exists BMI (ht [...] Procedure Name Priority Date/Time Associated Diagnosis Comments STREP A PCR Routine 11/01/2024 11:05 AM CDT Sore throat THROAT RAPID STREP ONLY CLINIC Routine 11/01/2024 10:55 AM CDT Sore throat SCAN-PATHOLOGY REPORT 10/30/2024 12:00 AM CDT SCAN-RADIOLOGY REPORT 10/13/2024 12:00 AM VEST PRESSER XR MAMMO JULIEN UNI ADDL VIEWS RIGHT ELIAS 08/11/2024 1:43 PM VEST PRESSER Abnormal mammogram LIPID PANEL W REFLEX MEASURED LDL Routine 07/19/2024 12:39 PM VEST PRESSER Screening, lipid HPV HIGH RISK Routine 07/19/2024 12:33 PM VEST PRESSER Pap smear for cervical cancer screening COLONOSCOPY SCREENING Routine 02/01/2023 12:00 AM CDT Encounter for screening colonoscopy ANTI HIV 1/2 Routine 08/28/2009 4:03 PM VEST PRESSER Supervision of High-Risk of Elderly Multigravida (HC) from Last 3 Months or Most Recently Relevant to Health Maintenance Results * STREP A PCR (11/01/2024 11:05 AM CDT) GROUP A STREP Negative 11/01/2024 4:12 PM CDT [facility] Throat SPECIMEN FROM THROAT / Unknown Non-Blood / Unknown 11/01/2024 11:05 AM CDT 11/01/2024 11:05 AM CDT us Alissa BROWNE MICROBIOLOGY Final Result [facility] [address] [place] [address], * POCT Throat Rapid Strep (11/01/2024 10:55 AM CDT) POC, GROUP A STREP NOT DETECTED NOT DETECTED [facility] Comment: The [place] [employer] recommends that a throat culture be performed if a rapid group A streptococcus assay yields a negative result. [facility] recommends Streptococcus, Group A culture. Throat SPECIMEN FROM THROAT / Unknown 11/01/2024 10:55 AM CDT 11/01/2024 10:55 AM CDT Alissa BROWNE MICROBIOLOGY Final Result [facility] [address] [place] [address], [facility] [address] [place] [address] * SCAN-PATHOLOGY REPORT (10/30/2024 12:00 AM CDT) us Scanner OTHER Final Result * SCAN-RADIOLOGY REPORT (10/13/2024 12:00 AM VEST PRESSER) Anatomical Region Laterality Modality Other us Scanner OTHER Final Result * XR MAMMO JULIEN UNI ADDL VIEWS RIGHT (08/11/2024 1:43 PM VEST PRESSER) Anatomical Region Laterality Modality BREASTS, Breast Right Mammograph y Impressions 08/11/2024 4:06 PM VEST PRESSER Suspicious 6 x 9 x 9 mm [...] your referring provider. Narrative 08/11/2024 4:06 PM VEST PRESSER As a result of the [employer] [...] Shanelle Renee MD MAMMO Final Result * (ABNORMAL) LIPID PANEL W REFLEX MEASURED LDL (07/19/2024 12:39 PM VEST PRESSER) CHOLESTEROL, TOTAL 194 <200 mg/dL [facility] HDL CHOLESTEROL 46(L) > OR = 50 mg/dL [employer] TRIGLYCERIDES 203(H) <150 mg/dL [employer] [facility] Comment: If a non-fasting specimen was collected, consider repeat triglyceride testing on a fasting specimen if clinically indicated. Jayshree et al. J. of Clin. Lipidol. 2015;9:129-169. LDL-CHOLESTEROL 116(H) mg/dL (calc) [employer] Comment: Reference range: <100 Desirable range <100 mg/dL for primary prevention; <70 mg/dL for patients with CHD or diabetic patients with > or = 2 CHD risk factors. LDL-C is now calculated using the Luigi-Amaury calculation, which is a validated novel method providing better accuracy than the Friedewald equation in the estimation of LDL-C. Luigi SS et al. CAMELIA. 2013;310(19): 0030-8102 (http://education.SupplyBetter/faq/VYD056) CHOL/HDLC RATIO 4.2 <5.0 (calc) [facility] NON HDL CHOLESTEROL 148(H) <130 mg/dL (calc) [employer] Comment: For patients with diabetes plus 1 major ASCVD risk factor, treating to a non-HDL-C goal of <100 mg/dL (LDL-C of <70 mg/dL) is considered a therapeutic option. Blood BLOOD SPECIMEN / Unknown 07/19/2024 12:39 PM VEST PRESSER 07/19/2024 12:40 PM VEST PRESSER Narrative [facility] - 07/20/2024 3:33 AM VEST PRESSER FASTING:YES FASTING: YES [facility] Zhang CHEMISTRY Final Result Performing Organization Address City/[facility]/ZIP Co de Phone Number [email or web address] [facility] [address] [place] [address], [facility] [address] [place] [address] * HPV HIGH RISK (07/19/2024 12:33 PM VEST PRESSER) TYPE 16 Negative Negative 07/22/2024 1:52 PM VEST PRESSER [facility] TYPE 18 Negative Negative 07/22/2024 1:52 PM VEST PRESSER [facility] OTHER HIGH RISK TYPES Negative Negative 07/22/2024 1:52 PM VEST PRESSER [facility] Other (Cervical) Non-Blood / Unknown 07/19/2024 12:33 PM VEST PRESSER 07/20/2024 3:18 PM VEST PRESSER Narrative [facility] - 07/22/2024 1:52 PM VEST PRESSER HPV types 16, 18, 31, 33, 35, 39, 45, 51, 52, 56, 58, 59, 66 and 68 DNA were undetectable or below the pre-set threshold. Methodology: Fuad Judie 4800 HPV Test Deann Vicente AVILA MICROBIOLOGY Final Result Performing Organization Address City/[facility]/ZIP Co de Phone Number [facility] [address] [place] [address], * COLONOSCOPY SCREENING (02/01/2023 12:00 AM CDT) Shanelle Renee MD GI PROCEDURE ORD Claudia l Result * ANTI HIV 1/2 [05383.0] (08/28/2009 4:03 PM VEST PRESSER) ANTI HIV 1/2 Non-reacti ve [facility] Blood specimen (specimen) BLOOD SPECIMEN / Unknown 08/28/2009 4:03 PM VEST PRESSER 08/28/2009 3:54 PM VEST PRESSER us Lily Feliciano MD SEND OUTS Final Result [facility] INTERNAL ZIP [phone] [address] from Last 3 Months or Most Recently Relevant to Health Maintenance Insurance [employer] [facility] * Guarantor: Favian Patel Account Type Relation to Patient Date of Phone Billing Address Personal/Family [address] [place] [id number] Advance Directives * Full Code (Latest Code Status on File) Date Activated Date Inactivated Comments 03/21/2024 8:18 AM 03/22/2024 2:08 AM Question Answer Comments Code Status Discussion: Reviewed Preferences Care Teams Research Program Internship Relationship Specialty Start Date End Date Shanelle Renee MD [address] [place] [address] PCP - General Family Practice 01/25/18 Roxy Whaley RN [address] [phone] Nurse Navigator - Oncology Registered Nurse 08/24/24 Kian English MD [address] [phone] Surgery - Oncology 08/24/24
--- OUTSIDE RECORDS SUMMARY | 2024-12-06 20:55 | XMS_ITS | Encounter Summary ---
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 [address] [place] [phone] Phone: tel: fax: [facility] Referral ID Status Reason Start Date Expiration Date Visits Re quested Visits Authorized [id number] Closed 11/06/2024 05/08/2026 1 1 Encounter Details Date Type Department Care Team (Latest Contact Info) Description 11/20/2024 8:45 AM CDT - 11/20/2024 1:10 PM CDT Hospital Encounter Department of Radiation Oncology in [place], [place] [address] [place] [phone] Tim Navarro M.D., Ph.D. [address] [place] [phone] Malignant Neoplasm Of Breast Upper Outer Quadrant [...] your living situation today? I have a [facility] place to live 10/30/2024 Comments No Sex and Gender Information Value Date Recorded Sex Assigned at Female 07/25/2024 9:49 AM PADDING MACHINE OPERATOR Legal Sex Female 6:01 PM PADDING MACHINE OPERATOR Gender Identity Female 07/25/2024 9:49 AM PADDING MACHINE OPERATOR Sexual Orientation Straight 07/25/2024 9: 49 AM PADDING MACHINE OPERATOR documented as of this encounter Last Filed Vital Signs Vital Sign Reading Time Taken Comments Blood Pressure - - Pulse - - Temperature - - Respiratory Rate - - Oxygen Saturation - - Inhaled Oxygen Concentration - - Weight 80.7 kg (177 lb 14.6 oz) 11/20/2024 8:48 AM CDT Height - - Body Mass Index 29.53 11/08/2024 9:42 AM CDT documented in this encounter Medications at Time of Discharge acetaminophen (TylenoL) 500 mg tablet Take 2 tablets (1,000 mg total) by mouth every 6 (six) hours as needed for pain. 10/31/2024 albuterol 90 mcg/actuation inhaler Inhale 2 puffs 4 (four) times a day as needed. 06/18/2022 cholecalciferol (Vitamin D3) 25 mcg (1,000 Unit) capsule Take 1 capsule by mouth daily. 09/21/2017 citalopram (CeleXA) 10 mg tablet Take 1 tablet by mouth at bedtime. 07/04/2024 LORazepam (Ativan) 1 mg tablet Take 1 mg by mouth as needed. Prior to flying 06/28/2024 melatonin 1 mg tablet Take 3 mg by mouth at bedtime as needed for sleep. 01/17/2018 ondansetron ODT (Zofran-ODT) 4 mg disintegrating tablet Dissolve 1 tablet (4 mg total) in the mouth every 8 (eight) hours as needed for nausea or vomiting. 20 tablet 10/31/2024 3:20 PM CDT 10/31/2024 oxyCODONE (Roxicodone) 5 mg immediate release tabletIndications:Ac heriberto Pain Take 1 tablet (5 mg total) by mouth every 4 (four) hours as needed for pain Indication: Acute Pain. 10 tablet 11/03/2024 sennosides-docusate sodium (Senna with Docusate Sodium) 8.6-50 mg per tablet Take 1 tablet by mouth 2 (two) times a day. 100 tablet 10/31/2024 3:20 PM CDT 10/31/2024 apixaban (Eliquis) 2.5 mg tablet Take 1 tablet (2.5 mg total) by mouth 2 (two) times a day. Take first dose the morning of 11/02. 56 tablet 10/31/2024 3:20 PM CDT 11/02/2024 documented as of this encounter Consult Notes * Regina Martell, REMY, Darlene. - 11/20/2024 9:00 AM CDT Images from the original note were not included. SUBJECTIVE Requesting Provider Brie Durant M.D. Reason for Consult Consultation regarding the role of radiotherapy for treatment of right breast cancer. Collaborating physician: Tim Navarro M.D., Ph.D. ([phone]) History of Present Illness Mrs. Maryam Ayers is a 54 y.o. woman from [place], [place] with right breast invasive lobular carcinoma, grade 2, ER+ (91-100%) WA+ (91-100%) HER2- (1+ IHC), Ki-67 5-10%, [id number]; s/p bilateral mastectomy with right axillary sentinel lymph node biopsy and flat closure on 10/30/2024, pT1b(m)N1a(sn). She presents to the Department of Radiation Oncology for discussion regarding the role of radiotherapy. She is accompanied today by her supportive partner Rom. 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 Her oncologic history is as follows: Oncology History Malignant Neoplasm Of Breast Upper [...] right breast performed elsewhere andlater reviewed at [facility] showed Biopsy: Core biopsy, Right, 08/15/24 ; Clip: Vision. invasive lobular carcinoma; Grade: 2. Hormone receptor testing: Estrogen positive (91-100%), Progesterone positive (91-100%), HER2 1+ (negative), and Ki-67 (5-10%.) Per [facility] Review: Complete. 08/31/2024 Genetic Testing and Tumor Genotyping 09/01/2024 Initial Diagnosis September 01, 2024: Consultation with Dr. [facility]ques-[facility]. Additional imaging and biopsies recommended. 09/15/2024 Biopsy/Pathology Site 1: MRI guided biopsy of the right breast, 8 o'clock position, 3.5 cm posterior to the nipple showed invasive lobular carcinoma grade 2 (of 3) measuring 4 mm in greatest linear extent. LCIS, classic and focal pleomorphic types present. ER and WA 91-100% positive. HER2 Rosa negative with a score of 1+. Ki-67 7%. Site 2: MRI guided biopsy of right breast at the 3 o'clock position 1.5 cm from the nipple marked with a cylinder biopsy clip showed fibrocystic change. September 15, 2024: MRI guided biopsy of the LEFT BREAST, 6 o'clock position, 6 cm from the nipple showed ductal carcinoma in-situ, low to intermediate grade, cribriform and solid type with the associated microcalcifications. ER and WA 91- 100% positive. 10/30/2024 Surgery and Procedures October 30, 2024: Status post bilateral mastectomy and right axillary sentinel lymph node excision. Flat closure. Pathology from the RIGHT BREAST showed invasive [...] mm in size with no extranodal extension. [id number] Tumor: multifocal invasive lobular carcinoma, grade 2, 9 mm in greatest dimension, skin is present and involved DCIS: not identified LVI: not identified Microcalcifications: present, benign Margins: negative to 7 mm Lymph nodes: 1 of 4 positive, the largest measures 3 mm, with no LAUREN. Pathologic stage: pT1b(m)N1a(sn) Pathology from the LEFT BREAST showed ductal carcinoma in-situ in the lower outer quadrant, 3 mm, cribriform type, intermediate-grade, focal necrosis present. Surgical margins negative with the closest margin greater than 10 mm. pTisNx 10/30/2024 Pathologic Stage Staging form: Breast, AJCC 8th Edition - Pathologic stage from 10/30/2024: Stage IA (pT1b, pN1a(sn), cM0, G2, ER+, WA+, HER2-) Stage prefix: Initial diagnosis Method of lymph node assessment: Mastic lymph node biopsy Nuclear grade: GX Multigene prognostic tests performed: None Histologic grading system: 3 grade system 11/08/2024 Other November 08, 2024: Consultation with Dr. Meghna Soto, [facility] for adjuvant treatment discussion. 1. Oncotype DX testing on the 9 mm lesion (ordered 11/08/14) 2. Bone density testing 3. Begin Zoladex every 3 months 4. We will start letrozole 5. Based on Oncotype will decide on chemotherapy and/or a CDK4 6 inhibitor. 6. Radiation oncology consult pending for November,. 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 ER and WA 91-100% positive. 10/30/2024 Pathologic Stage Staging form: Breast, AJCC 8th Edition - Pathologic stage from 10/30/2024: Stage Unknown (pTis (DCIS), pNX, ER+, WA+, HER2: Not Assessed) Stage prefix: Initial diagnosis Multigene prognostic tests performed: None Interval History Mrs. Maryam Ayers confirms the above summary. She is healing well from surgery with no concerns for pain or swelling. Her range of motion is improving with some tightness. She met with Dr. Soto in Medical Oncology on 11/08/2024 with plan for Oncotype DX testing to guide adjuvant systemic therapy recommendations. This will include chemotherapy and/or a CDK4 6 inhibitor pending Oncotype results and letrozole, she has Medical Oncology follow up on 12/07/2024. She has plastic surgery follow-upon 11/27/2024. Radiotherapy History Prior Radiation therapy: None Medical Devices: None Connective Tissue Diseases: None Other cancer: NO Genetic Testing: pathogenic variant in CHEK2 Oncotype Testing: pending Menopausal Status: pre-menopausal Pertinent Medical/Surgical History In addition to her breast cancer as detailed above, Mrs. Maryam Ayers has a medical history notable for hypertension, hyperlipidemia, history of stroke (2022), fibromyalgia, anxiety, patent foramen ovale. Remainder per electronic record. Family History Mrs. Maryam Ayers has a family history notable for breast cancer (mother), colon cancer (paternal grandmother), lung cancer (paternal grandmother), osteosarcoma (maternal grandmother). Remainder per electronic record. Social History Mrs. Maryam Ayers has 3 children (ages 14, 22, 25). 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 She is a never smoker. OBJECTIVE Wt 80.7 kg BMI 29.53 kg/m?? Pain 0 of 10 Physical Exam ECOG score: 1 - Restricted in physically strenuous activity but ambulatory and able to carry out work of a light or sedentary nature (post-op setting) General: A well-appearing 54 y.o. female sitting comfortably in clinic in no acute distress. Breasts: The patient was examined in the seated position. Visual inspection reveals fairly symmetric chest wall with well healing mastectomy incisions bilaterally with surgical tape in place. Extremities: Upper extremity range of motion is unrestricted, no appreciable edema. Neuro: Alert and oriented. No focal deficits. Gait is normal. ASSESSMENT / PLAN 1. 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) 2. Cancer Breast Ductal In Situ Left 3. 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 Maryam Ayers and her partner Rom in clinic today. I introduced myself as a physician ophthalmic surgical assistant working with Dr. Navarro. I reviewed her diagnosis, pathology, and clinical scenario in detail and discussed the role and rationale for use of adjuvant radiotherapy in this specific setting. Radiation therapy would be used as a localized treatment to help increase the local/regional control and overall survival rates. We reviewed that post-mastectomy radiotherapy has shown a benefit in T3 tumors and lymph node positive disease. We would recommend treatments to the right chest wall and regional lymph nodes in [address] Navarro discussed that her risk of additional precious disease in the right axilla is approximately 10%. Maryam prefers to be aggressive in her adjuvant treatment course and wants to proceed with adjuvant radiotherapy. We would not radiate the left chest wall given final pathology of DCIS. I reviewed the logistics of radiotherapy as well as risks, benefits, and alternatives. We discussedtreatment planning and potential strategies for minimizing dose to critical structures. I reviewed the differences between photons and protons, the general sequence of appointments here in radiation o ncology, including simulation, treatment planning, management visits, and daily treatment Wednesday-Wednesday. I discussed the potential acute and late toxicities which may be associated with radiation therapy. I discussed management options for radiation dermatitis including skin care with gentle unscented moisturizers, mometasone, and Mepitel film. Mrs. Maryam Ayers is interested in Mepitel, I have placed an order for a Mepitel education visit to coordinate with simulation. Acute reactions which could occur as a result of the procedure may include some or all of the following: Fatigue or weakness. Breast swelling, discomfort. Skin inflammation, including redness, pain, dryness and scaling, hair loss, and / or blistering with superficial ulceration. Sore throat, difficulty swallowing, or sense of obstruction. Late reactions which could occur as a result of the procedure may include some or all of the following: Permanent skin changes, including skin thickening/firmness and color change. Change in breast symmetry, volume, appearance. Breast or arm swelling (lymphedema). Limitation in shoulder motion, which may require physical therapy. Complications with reconstruction, if applicable. Low risk of lung inflammation, with persistent cough or shortness of breath. Low risk of rib damage or fracture. Rare risk of nerve damage to the brachial plexus causing weakness or loss of sensation in arm and hand. Rare risk of thyroid damage resulting in decreased thyroid function requiring lifelong medication. Rare risk of heart damage, including coronary artery damage, heart failure, pericarditis, valve damage, and irregular heart beats (<1%). Rare risk of second cancers (<0.1%). Mrs. Maryam Ayers verbalized understanding of the above discussion and rationale for radiotherapy. She indicated her desire to proceed with radiation planning and treatment. We will arrange for tentative simulation on 12/07/2024 when she is here for Medical Oncology follow up and begin treatment on 12/18/2024. Orders placed today. Maryam will let us know whether she prefers the standard 15 fractionsvs 5 fractions prior to simulation. Questions and concerns were addressed to the best of my ability and with apparent satisfaction. Ourcontact information was provided if any further questions arise. The patient was also seen and evaluated by Dr. Navarro. Please see his attestation above for his recommendations. Education Ready to learn, no apparent learning barriers were identified. Explained diagnosis and treatment plan; patient expressed understanding of the content. I personally spent 67 minutes in care of the patient today. Time includes both non face to face andface to face patient care. REMY Lyn, P.A.-C. Cosigned by Tim Navarro M.D., Ph.D. at 11/20/2024 3:07 PM CDT Associated attestation - Tim Navarro M.D., Ph.D. - 11/20/2024 3:07 PM CDT I personally spent over half of a total 45 minutes face to face with the patient in counseling and discussion and/or coordination of care as described above. is a pleasant 54-year-old lady from [facility] with recent diagnosis of multifocal right-sided invasive lobular carcinoma, grade 2 ERPR positive and HER2 Rosa negative with Ki-67 of 5 to 10%. She also has DCIS of the left breast and has undergone bilateral mastectomy on October. No adjuvant radiotherapy is necessary for her left-sided DCIS. For her right- sided invasive lobularcarcinoma, final pathology demonstrated 2 foci measuring 0.9 and 0 point 6 mm without LVSI and negative margins. 1 lymph node out of 4 was involved with 3 mm metastasis without extranodal extension. Her risk of additional lymph nodes being involved is approximately 10%. She has met with Medical Oncology and Oncotype testing is pending. If she were to pursue endocrine therapy, her risk would be reduced approximately by 50%. If she were to pursue radiation, her risk of recurrence would be in the range of 2 - 3%. Given the low risk of recurrence, we also discussed pursuing systemic therapy only,however, we would like to pursue PMRT to optimize local regional control. In this case, we discussed the potential role of proton therapy to improve target coverage and minimize radiation dose to her right side of the heart and right lung and uninvolved soft tissues. Logistics, alternatives risks and benefits discussed with the patient. We will tentatively schedule simulation on December 07 when she returns for medical oncology follow up visit. If chemotherapy is recommended, we will cancel simulation. documented in this encounter Plan of Treatment Upcoming Encounters Date Type Department Care Team (Late st Contact Info) Description 12/07/2024 10:15 AM CDT Appointment Department of Radiation Oncology in [place], [place] [address] [place] [phone] Tim Navarro M.D., Ph.D. [address] [place] [phone] 12/07/2024 11:30 AM CDT Appointment Department of Radiation Oncology in [address] [phone] Tim Navarro M.D., Ph.D. [address] [place] [phone] Christy Wade R.N. [address] [place] [phone] 12/07/2024 12:20 PM CDT Appointment Department of Radiology, [facility], in [place], [place] [address] [place] [phone] Meghna Soto M.B., B.Ch. [address] [place] [phone] 12/07/2024 2:40 PM CDT Office Visit Department of Oncology in [place], [place] [address] [place] [phone] Meghna Soto M.B., B.Ch. [address] [place] [phone] 12/08/2024 8:00 AM CDT Telemedicine Department of Oncology in [place], [place] [address] [place] [phone] Haim Mueller APRN, C.N.P., D.N.P. [address] [place] [phone] Brooklyn Lombardi P.A.-C., M.S. [address] [place] [phone] 12/15/2024 10:00 AM CDT Virtual Visit Department of Cardiovascular Medicine in [place], [place] [address] [place] [phone] Soto Ta M.D., Ph.D. [address] [place] [phone] 02/05/2025 9:30 AM CDT Infusion Department of Infusion Therapy in [place], [place] [address] [place] [phone] Meghna Soto M.B., B.Ch. 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) 4 Occurrences starting 11/20/2024 until 02/19/2026 Scheduled Referrals Name Type Priority Associated Diagnoses Order Schedule Radiation Oncology - Breast consult (clinic) Outpatient Referral Routine 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) 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) Once for 1 Occurrences starting 11/20/2024 until 11/20/2024 Radiation Oncology - Nurse education visit (clinic) Outpatient Referral Routine 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) 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) 1 Occurrences starting 11/20/2024 until 02/19/2026 Radiation Oncology nurse visit (clinic) Outpatient Referral Routine 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) 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) Expected: 12/07/2024, Expires: 02/19/2026 documented as of this encounter Visit Diagnoses Diagnosis 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)- Primary Cancer Breast Ductal In Situ Left 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) 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)- Primary 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
--- OUTSIDE RECORDS SUMMARY | 2024-12-06 20:55 | XMS_ITS | Encounter Summary ---
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 [address] Phone: tel: fax: Referral ID Status Reason Start Date Expiration Date Visits Re quested Visits Authorized [id number] 1 Encounter Details Date Type Department Care Team ([facility] Contact Info) Description 10/30/2024 9:05 AM CDT - 10/30/2024 4:21 PM CDT Surgery [facility] OR [address] [place] [address] [place] [address] BILATERAL SIMPLE MASTECTOMY. Social History Tobacco Use Types Packs/Day Years Used Date Smoking Tobacco: Never Passive Smoke Exposure: Past Smokeless Tobacco: Never Alcohol Use Standard Drinks/Week Comments Not Currently 0 (1 standard drink = 0.6 oz pur e alcohol) [facility] Utilities Answer Date Recorded In the past 12 months has th e [employer], gas, oil, or water [employer] threatened to shut off services in your [...] your living situation today? I have a [facility] place to live 10/30/2024 Comments No Sex and Gender Information Value Date Recorded Sex Assigned at Female 07/25/2024 9:49 AM PURLER Legal Sex Female 6:01 PM PURLER Gender Identity Female 07/25/2024 9:49 AM PURLER Sexual Orientation Straight 07/25/2024 9: 49 AM PURLER documented as of this encounter Last Filed Vital Signs Vital Sign Reading Time Taken Comments Blood Pressure 133/93 10/30/2024 4:20 PM CDT Pulse 77 10/30/2024 4:20 PM CDT Temperature 36.9 C (98.4 F) 10/30/2024 4:20 PM CDT Respiratory Rate 20 10/30/2024 4:20 PM CDT Oxygen Saturation 96% 10/30/2024 4:20 PM CDT Inhaled Oxygen Concentration - - Weight 82.8 kg (182 lb 8.7 oz) 10/30/2024 7:34 A M CDT Height 166 cm (5' 5.35) 10/30/2024 7:34 AM CDT Body Mass Index 30.05 10/30/2024 7:34 AM CDT documented in this encounter Discharge Summaries * Mor Luu M.D. - 10/31/2024 1:06 PM CDT DISCHARGE SUMMARY BRIEF OVERVIEW Hospital: [facility] Discharge Provider: Brie Durant M.D. 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 * Surgery Information This Encounter Past Procedures (11/01/2023 to Today) Date Procedures Providers Loc / Dept 10/30/2024 BILATERAL SIMPLE MASTECTOMY., RIGHT AXILLARY SENTINEL LYMPH NODE BIOPSY, FLAT CLOSURE, ASSISTANCE WITH CLOSURE Brie Durant M.D.Sywyj, Yuliana Monge Madeline E, P.A.-C., M.S.Foster Mcclendon B.M., B.Ch., Ph.D.Suleiman Arredondo M.D. [facility] OR DISCHARGE DISPOSITION Home or Self Care [1] OUTPATIENT FOLLOW UP Scheduled Appointments 11/08/2024 10:00 AM Meghna Soto M.B., B.Ch. Oncology 11/08/2024 12:00 PM LAB BLOOD [facility] Laboratory Medicine 11/08/2024 1:00 PM Geno Stevenson APRN, C.N.P., D.N.P. Breast and Melanoma Surgical Oncology 11/08/2024 4:[address] [facility] CV LOS 830 Radiology 11/10/2024 2:00 PM Roxy Mayo, Ph.D., L.P. Psychiatry and Psychology 11/13/2024 8:00 AM Yoon Hamilton APRN, C.N.P., D.N.P. Plastic Surgery 11/27/2024 5:00 PM Tre Dumas M.D. Cardiovascular Disease For appointment details refer to your Patient Appointment Guide. 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 She was admitted on the day of surgery and taken to the operating room for the planned procedure. She tolerated the procedure well and was admitted to the [facility] Service under the direction of Dr. Durant following the procedure for continued observation and monitoring. She progressed in the usual post-operative fashion without complications. When she was tolerating a diet, pain was well controlled with oral pain medications, she was mobilizing without difficulty and her bowel and bladder function were acceptable, she was dismissed from the hospital. CONSULTS ORDERED DURING THIS ADMISSION None CONDITION AT DISCHARGE stable Discharge instructions were provided to the patient and caregiver(s). Total time spent in discharge services today: 30 minutes. documented in this encounter Discharge Instructions * Attachments The following attachments cannot be sent through Care Everywhere. * Acetaminophen (By mouth) (Greek) * Apixaban (By mouth) (Greek) * Ondansetron (By mouth, Into the mouth) (Greek) * Oxycodone, Rapid Release (By mouth) (Greek) * Senna (By mouth) (Greek) documented in this encounter Medications at Time [...] 20 tablet 10/31/2024 3:20 PM CDT 10/31/2024 sennosides-docusate sodium (Senna with Docusate Sodium) 8.6-50 mg per tablet Take 1 tablet by mouth 2 (two) times a day. 100 tablet 10/31/2024 3:20 PM CDT 10/31/2024 apixaban (Eliquis) 2.5 mg tablet Take 1 tablet (2.5 mg total) by mouth 2 (two) times a day. Take first dose the morning of 11/02. 56 tablet 10/31/2024 3:20 PM CDT 11/02/2024 oxyCODONE (Roxicodone) 5 mg immediate release tabletIndications:Ac heriberto Pain Take 1 tablet (5 mg total) by mouth every 4 (four) hours as needed for pain Indication: Acute Pain. 10 tablet 10/31/2024 3:20 PM CDT 10/31/2024 documented as of this encounter Progress Notes * Anderson Cedillo Pharm.D., R.Ph. - 10/31/2024 11:59 AM CDT Pharmacist Progress Note Reason for admission: 54 y.o. 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 RIGHT AXILLARY SENTINEL LYMPH NODE BIOPSY, POSSIBLE LEFT AXILLARY SENTINEL LYMPH NODE BIOPSY. POSSIBLE RIGHT AXILLARY LYMPH NODE DISSECTION, POSSIBLE LEFT AXILLARY LYMPH NODE DISSECTION. FLAT CLOSURE, ASSISTANCE WITH CLOSURE, PROCEED INDICATED. on 10/30/2024. PMH: HTN, Migraines, PFO, OBJECTIVE Home medications: Held: Citalopram, OTCs/Vitamins Changed: none Patient own medications: none Review of Systems Neuro: pain 0 - 4, acetaminophen, prn oxycodone, liposomal bupivacaine CV: VSS GI: Senna-S ID: Completed perioperative cefazolin Prophylaxis: SQH 5,000 TID , SCDs ASSESSMENT / PLAN Pain Pain well-controlled on current regimen. Patient received perioperative long-acting liposomal bupivacaine. Continue to monitor pain as this medication wears off. Home Meds Recommend resuming home dose citalopram if patient not discharged 3/18 PM (currently on Oct) CV History of PFO - plan to discharge on 4 weeks of Eliquis 2.5mg BID Changes to medications anticipated at discharge: pain regimen, bowel regimen, Eliquis [place] 6-[place] [phone] with questions. Anderson Cedillo, PharmNataliaD., R.Ph. * Mor Luu M.D. - 10/31/2024 7:12 AM CDT [facility] PROGRESS NOTE Interval events: POD1 from bilateral simple mastectomy, right axillary sentinel lymph node biopsy, and flat closure with flank debulking (PLS). S: Patient was awake and in pleasant spirits when we visited for rounds this morning. She shares that she slept well overnight. She did experience 2 bouts of nausea with no emesis, once around 10:00 p.m. and once around 2:00 a.m.. Pain well controlled. Breathing comfortably on room air. O: Afebrile, HR 67, MAP 86. Exam: General: alert, oriented, no acute distress. Breasts: Incisions clean, dry, intact. No erythema, Sylke dressings in place. No palpable fluid collections. No evidence of dehiscence or discharge. No concern for hematoma or infection. 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 Ayers is a 54 yo female with history of PFO recent diagnosis of breast cancer. 1 Day Post-Op Bilateral simple mastectomy, right axillary sentinel lymph node biopsy, and flat closure with flankdebulking (PLS). Patient was admitted overnight for observation due to her medical history. She is recovering appropriately. Vitals signs are stable within normal limits. She is satting well on room air. She has experienced some nausea with no emesis. We will encourage p.o. intake and ambulation. Plan: We plan for discharge today once patient is tolerating p.o. intake. Her pain is well controlled with oral pain medication. We will send her home with oxycodone. Due to her history of PFO with right to left shunt, we will start her on Eliquis 2.5 mg BID for 4 weeks, first dose morning. She will hold her daily aspirin for 4 weeks while on Eliquis. Virginiains are managed by Plastic Surgery and will remain until meeting drain removal criteria. She hasfollow-up scheduled with our team and Plastic Surgery. [place] [phone] with any questions. * Kath Mendoza, PharmDarlene., R.Ph., BCPS - 10/30/2024 7:32 AM CDT Images from the original note were not included. Admission Medication History Note Adherence issues: No concerns Medication list source: Patient Medication related information: - Pt reports intolerance to morphine: itching. Has tolerated other pain medications with no problems. Prior to Admission Medications Med List Status: Pharmacy Complete Set By: Kath Mendoza, PharmDarlene., R.Ph., BCPS at 10/30/2024 7:32 AM Taking? Last Dose Informant Start Date End Date LT albuterol 90 mcg/actuation inhaler More than a month -- 06/18/22 -- Inhale 2 puffs 4 (four) times a day as needed. aspirin [address] tablet 10/29/2024 at Evening -- -- -- Take 81 mg by mouth every evening. cholecalciferol (Vitamin D3) 25 mcg (1,000 Unit) capsule More than a month -- 09/21/17 -- Take 1 capsule by mouth daily. Patient taking differently: Take 1 capsule by mouth as needed. citalopram (CeleXA) 10 mg tablet 10/29/2024 at Bedtime -- 07/04/24 -- Take 1 tablet by mouth at bedtime. LORazepam (Ativan) 1 mg tablet More than a month -- 06/28/24 -- Take 1 mg by mouth as needed. Prior to flying melatonin 1 mg tablet Past Week -- 01/17/18 -- Take 3 mg by mouth at bedtime as needed for sleep. documented in this encounter Nursing Notes * Nela Durham RNataliaN. - 10/31/2024 2:52 PM CDT Shift Goals: Clinical Goals for the Shift: Pt will prepare for discharge Identify possible barriers to meeting goals/advancing plan of care: N/A End of Shift Summary: Pt VSS and adequate for discharge. AVS given and education provided to pt andvisitor at bedside. All questions/concerns addressed. Pt and guest practiced emptying and caring for drains. Drain kit provided. Pt left the unit in stable condition via wheelchair escorted by transport with all belongings. Problem: Risk for Compromised Skin Integrity-Other Hvac Journeyman(s) Goal: Risk for Compromised Skin Integrity-Other Hvac Journeyman(s) Outcome: Adequate for Discharge Problem: PAIN - ADULT Goal: PT VERBALIZES/DEMONSTRATES ADEQUATE COMFORT LEVEL OR BASELINE Outcome: Adequate for Discharge Problem: KNOWLEDGE DEFICIT Goal: Patient/family/caregiver demonstrates understanding of disease process, treatment plan, medications, and discharge instructions Outcome: Adequate for Discharge Problem: INFECTION - ADULT Goal: Absence of infection during hospitalization Outcome: Adequate for Discharge Problem: SKIN/TISSUE INTEGRITY Goal: Skin/Tissue integrity maintained or improved Outcome: Adequate for Discharge Goal: Oral and Nasal mucous membranes remain intact Outcome: Adequate for Discharge Problem: SAFETY ADULT Goal: Maintain a safe environment Outcome: Adequate for Discharge Problem: DISCHARGE PLANNING Goal: Patient discharge needs identified Outcome: Adequate for Discharge Problem: SAFETY ADULT - RISK FOR FALL AND OR FALL INJURY Goal: Patient remains free from fall/fall injury Outcome: Adequate for Discharge Problem: Risk for Compromised Skin Integrity-Delroy Activity Score 3 Goal: Achieve optimal activity to maintain or improve skin integrity. Outcome: Adequate for Discharge documented in this encounter OR Notes * Op Note - Brie Durant M.D. 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 [place] Operative Findings: Margins: negative by intraoperative pathology Lymph nodes: negative by frozen section Complications: None Neoadjuvant Therapy: None Indications for Operation: Maryam Ayers is a 54 y.o. 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 All of her questions were answered. She understands and agrees to proceed. The surgery consent was reviewed and signed in pre-op holding. Left Breast Procedure(s) Left Total Mastectomy: Indication: therapeutic (cancer) Incision Type: inframammary fold with parallel upper incision to include excess axillary skin and tissue Extent of dissection: pectoralis fascia excised Specimen orientation by surgeon: marked with suture Intraoperative pathologic margin assessment: not done Intraoperative margin re-excision: none Right Breast Procedure(s) Right Total Mastectomy: Indication: therapeutic (cancer) Incision Type: inframammary fold with parallel upper incision to include excess axillary skin and tissue Extent of dissection: pectoralis fascia excised Specimen orientation by surgeon: marked with suture Intraoperative pathologic margin assessment: negative Intraoperative margin re-excision: none Right Axilla Procedure(s) Right [place] Lymph Node Biopsy: SLN mapping agents: Tc-99 sulfur colloid periareolar by radiology day of operation and blue dye notused Incision: performed through breast incision Depth of sentinel node(s): deep - clavipectoral fascia was divided to identify the SLNs Analysis of sentinel nodes: permanent section pending Commission on Cancer Right [place] Lymph Node Biopsy Critical Element Summary Operation performed with curative intent: Yes Tracer(s) used to identify sentinel nodes in the upfront surgery (non- neoadjuvant) setting): Radioactive tracer Tracer(s) used to identify sentinel nodes in the neoadjuvant setting: N/A All nodes (colored or non-colored) present at the end of a dye-filled lymphatic channel were removed: N/A All significantly radioactive nodes were removed: Yes All palpably suspicious nodes were removed: N/A Biopsy-proven positive nodes marked with clips prior to chemotherapy were identified and removed: N/A Surgeon: Brie Durant MD Cosurgeon: None. Resource Recovery Specialist: Mor Luu MD Additional Vacuum Filter Operator: HOLLIE Ritchie Type of Procedure: The patient presented from home (outpatient) and will stay overnight for observation given PFO. Procedure: Bilateral total mastectomy, bilateral therapeutic, right sentinel node biopsy Anesthesia: General endotracheal anesthesia. Intravenous Fluids: As per anesthesia. Estimated Blood Loss: 200 cc. Specimens: Left and right breasts, right sentinel nodes Drains: As per plastic surgery Dressings: As per plastic surgery Disposition: Stable. Please refer to Dr. Mcclendon's dictation of plastic surgery for the bilateral flat esthetic closure. Intraoperative Findings: Please see description below. Description of the Procedure: The patient had technetium injected into both breasts this morning in nuclear medicine. She was correctly identified in the preoperative holding area. Both breasts were marked as the operative site. She had breast markings by plastic surgery. The patient was transported to the operating room where she was placed on the table in the supine position with both arms extended. SCDs were placed to bothlower extremities and 2 g of Ancef was administered intravenously. After smooth induction of general anesthesia, a stevenson catheter was placed. 5000 units of heparin was administered subcutaneously. Both breasts were prepped and draped in standard sterile fashion. With the Shady counter, a technetium hot spot was identified in both axilla and not in the internal mammary chain or supraclavicular fossa bilaterally. This was marked on the skin with a pen. Attention was first started on the right breast. An elliptical skin incision was made on the right breast with a 15-blade scalpel. Mastectomy flaps were created with electrocautery superiorly to the clavicle, medially to the sternum, inferiorly to the rectus abdominis and laterally to the latissimus dorsi muscle. The breast tissue and the pectoralis fascia were taken off the muscle with electrocautery. There were no palpable or visible abnormalities in the specimen. The specimen was submitted to Pathology and frozen section analysis showed two invasive cancer foci with the largest measuring 9mm. The margin was 2 cm. Attention was turned to performing the right axillary sentinel lymph node biopsy. The axillary clavipectoral fascia was incised and opened with electrocautery to enter the deep axilla. With the [place] counter, 2 hot spots were identified. They were lifted up with a tonsil and excised with electrocau kwesi. With the Shady counter, the first lymph node count measured 2307. The second lymph node count measured 3011. Pathology reported 4 lymph nodes with 3 showing no metastasis and 1 lymph node showing atypical cells, defer to final pathology. The background count measured 23 with the Shady counter. There were no palpable or visible abnormalities in the remaining axilla. Hemostasis was achievedwith electrocautery and hemoclips. The wound was copiously irrigated with sterile saline. Once hemostasis was present, the wound was packed with a moist lap pad. Attention was first turn to the left breast. An elliptical skin incision was made on the left breast with a 15-blade scalpel. Mastectomy flaps were created with electrocautery superiorly to the clavicle, medially to the sternum, inferiorly to the rectus abdominis and laterally to the latissimus dorsi muscle. The breast tissue and the pectoralis fascia were taken off the muscle with electrocautery. There were no palpable or visible abnormalities in the specimen. The specimen was submitted to Pathology and frozen section analysis showed atypia but no residual DCIS. The wound was copiously irrigated with sterile saline. Hemostasis was achieved with electrocautery and hemoclips. Once hemostasiswas present, the wound was packed with a moist lap pad. The patient tolerated the procedure without problems. Please refer to Dr. Mcclendon's dictation of Plastic surgery for the bilateral flat aesthetic closure. Brie Durant M.D. * Op Note - Suleiman Arredondo M.D. - 10/30/2024 11:53 AM CDT Pre-op Diagnosis Malignant Neoplasm Of Breast Upper Outer Quadrant Female Right (HCC) Post-op Diagnosis Malignant Neoplasm Of Breast Upper Outer Quadrant Female Right (HCC) Resource Recovery Specialist A sound assistant actively participated and was necessary for one or more of the following: opening, exposure and visualization, maintaining hemostasis, wound closure resulting in its safe and expeditious completion. Findings As expected Complications None Operative Note Narrative We were called into the room when our breast surgery colleagues had completed their part of the procedure and pathology margins were negative. We first proceeded with infiltrating bilateral lateral chest wall with tumescence solution. This was left ot sit for at least 7 minutes. During that time, we proceeded with checking hemostasis of the chest. We also extended her incision out superolaterallyto address some minor standing cones and excess skin/tissue. We then proceeded with liposuction of the bilateral lateral chest almaguer with perhaps 20 cc from each laterality, just to improve the contour. We then irrigated the chest almaguer with Betadine and Dabs and then used TXA topically. X2 15 slovenian drains were placed. We then injected the bilateral chests with Exparel after over 30 minutes fromtumescence. Closure then proceeded with PDS fascial sutures, 3-0 Monocryl deep dermal and then 3-0 Strattafix running subcuticular. Dressed with silk, ABD pads were placed and then placed in a chest binder. Cares handed back over to our breast surgery colleagues. Suleiman Arredondo M.D. Cosigned by Foster Mcclendon B.M., BMary Grace., Ph.D. at 11/01/2024 7:37 AM CDT * Op Note - Foster Mcclendon B.M., Yani., Ph.D. - 10/30/2024 11:53 AM CDT Pre-op Diagnosis Malignant Neoplasm Of Breast Upper Outer Quadrant Female Right (HCC) Post-op Diagnosis Malignant Neoplasm Of Breast Upper Outer Quadrant Female Right (HCC) Resource Recovery Specialist A sound assistant actively participated and was necessary for one or more of the following: opening, exposure and visualization, maintaining hemostasis, wound closure resulting in its safe and expeditious completion. Findings As expected Complications None Operative Note Narrative Mrs. Ayers was seen prior to surgery in the PACU and marked appropriately. Her consent from the Plastic surgery perspective was checked. She was transferred back to room alert and well and is under general anesthesia by the anesthesiology team. Primary team of Dr. Durant performed the appropriate surgical pause and commenced surgery asdescribed in the operation note of Dr. Durant. After they completed their portion of the case we were called to the room. We performed a surgical pause for our portion of the case. The mastectomy wound pockets were checked carefully for hemostasis and drains placed laterally. We washed out the wounds with normal saline and applied topical TXA. Exparel was infiltrated at the wound edges and the drain sites. And secured with 3-0 nylon. The skin flaps were tailor tacked togetherusing lisandro and excess skin excised to allow tissue to lie flat. The wound length was approximately 18cm on the right and 16 cm on the length. Particular attention was paid to the lateral aspect of the breast as it ran towards the flank, deepfat below the Kevin fascia was debulked appropriately. Closure proceeded in layers with 2-0 PDS used to advance the skin edges onto the chest wall pectoralis major muscle. 2-0 PDS was then used as a base layer closure with 3-0 Monocryl to the deep dermisand 3-0 Stratafix above that. Wounds were protected with silk dressings. Mine Castro, B.Ch., Ph.D. * Brief Op Note - Mor Luu M.D. - 10/30/2024 11:53 AM CDT Pre-op Diagnosis Malignant Neoplasm Of Breast Upper Outer Quadrant Female Right (HCC) Post-op Diagnosis Malignant Neoplasm Of Breast Upper Outer Quadrant Female Right (HCC) Findings Bilateral Simple mastectomy, right axillary sentinel node biopsy, bilateral flat closure, flank debulking (Plastic Surgery). Right breast specimen: - 928 g - Vision, cylinder, open coil clip in specimen on xray - Frozen pathology: ILC 2 foci, largest 9 mm; margin 2 cm Left breast specimen: - 846 g - Suspicious a couple of foci suspicious for ADH, no definitive DCIS Right nodes: - 3/4 nodes negative, 1 suspicious Complications None Mor Luu M.D. documented in this encounter Miscellaneous Notes * Hospital Course - Mor Luu M.D. - 10/30/2024 11:01 AM CDT Maryam Ayers presented to [facility] for bilateral total mastectomy, right axillary sentinel node biopsy, bilateral flat closure with bilateral flank debulking. She was admitted on the day of surgery and taken to the operating room for the planned procedure. She tolerated the procedure well and was admitted to the [facility] under the direction of Dr. Durant following the procedure for continued observation and monitoring. She progressed in the usual post-operative fashion without complications. When she was tolerating a diet, pain was well controlled with oral pain medications, she was mobilizing without difficulty and her bowel and bladder function were acceptable, she was dismissed from the hospital. documented in this encounter Plan of Treatment Upcoming Encounters Date Type Department Care Team (Late st Contact Info) Description 12/07/2024 10:15 AM CDT Appointment Department of Radiation Oncology in [address] [phone] Tim Navarro M.D., Ph.D. [address] [place] [phone] 12/07/2024 11:30 AM CDT Appointment Department of Radiation Oncology in [address] [phone] Tim Navarro M.D., Ph.D. [address] [place] [phone] Christy Wade R.N. [address] [place] [phone] 12/07/2024 12:20 PM CDT Appointment Department of Radiology, [facility], in [address] [phone] Meghna Soto M.B., B.Ch. [address] [place] [phone] 12/07/2024 2:40 PM CDT Office Visit Department of Oncology in [address] [phone] Meghna Soto M.B., B.Ch. [address] [place] [phone] 12/08/2024 8:00 AM CDT Telemedicine Department of Oncology in [place], [place] [address] [place] [phone] Haim Mueller, KRISSY, C.N.P., D.N.P. [address] [place] [phone] Brooklyn Lombardi P.A.-C., M.S. [address] [place] [phone] 12/15/2024 10:00 AM CDT Virtual Visit Department of Cardiovascular Medicine in [place], [place] [address] [place] [phone] Soto Ta M.D., Ph.D. [address] [place] [phone] 02/05/2025 9:30 AM CDT Infusion Department of Infusion Therapy in [place], [place] [address] [place] [phone] Meghna Soto M.B., B.Ch. [address] [place] [phone] documented as of this encounter Procedures Procedure Name Priority Date/Time Associated Diagnosis Comments SURGICAL PATHOLOGY, FROZEN LAB Routine 10/30/2024 12:58 PM CDT Malignant Neoplasm Of Breast Upper Outer Quadrant Female Right (HCC) OTHER 10/30/2024 10:30 AM CDT Malignant Neoplasm Of Breast Upper Outer Quadrant Female Right (HCC) BIOPSY SENTINEL LYMPH NODE AXILLARY - PREOPERATIVE LYMPHOSCINTIGRAPHY 10/30/2024 10:30 AM CDT Malignant Neoplasm Of Breast Upper Outer Quadrant Female Right (HCC) MASTECTOMY - SIMPLE 10/30/2024 1 0:30 AM CDT Malignant Neoplasm Of Breast Upper Outer Quadrant Female Right (HCC) documented in this encounter Results * Surgical Pathology, Frozen Lab (10/30/2024 12:58 [...] frozen and permanent sections. Grossed by HARRY Avalos PA (ASCP). B. Received fresh labeled right axillary sentinel lymph node No. 2 is a single 1 x 1 x 0.6 cm lymph node. Blue dye is not identified in the lymph node. All submitted for frozen and permanent sections. Grossed by Daphnie Matthews M.S., HOLLIE([facility]). C. Received fresh labeled right breast total [...] 60% adipose and 40% fibrocystic tissues, grossly. Cardiovascular Lab Director tissue submitted for frozen and permanent sections. After clinical evaluation, residual tissue is procured for IRB No. [id number]. Grossed by Av Spence M.S., PA([facility] D. Received fresh labeled left breast total [...] fibrous tissue and 40% adipose tissue, grossly. Cardiovascular Lab Director tissue submitted for frozen and permanent sections. After clinical evaluation, residual tissue is procured for IRB No. [id number]. Grossed by Daphnie Matthews M.S., PA([facility]). E. Received fresh labeled right breast lateral tissue is a 43 g aggregate of fibroadipose tissue and skin. No masses identified. Cardiovascular Lab Director tissue submitted for permanent sections. Grossed by Av Spence M.S., HOLLIE([facility]). 11/02/2024 11:53 AM CDT METH Block Summary [...] will be performed on block C[place]. Signed by Cezar Herrera M.D. 11/13/2024 [...] Breast, right, total mastectomy: Invasive lobular carcinoma, Molt grade 2 (of 3), forming multiple (2) [...] Histologic Type: Invasive lobular carcinoma Histologic Grade (Molt Histologic Score) Glandular (Acinar)/Tubular Differentiation: Score 3 [...] ns present in non-neoplastic tissue Residual Cancer [place] (RCB) Calculation: Not applicable Margins Margin Status [...] and 2 long lateral Tissue (Lymph Node, [place]) 10/30/2024 12:58 PM CDT Tissue (Lymph Node, [place]) 10/30/2024 1:00 PM CDT Tissue (Breast, Right) 10/30/2024 3:18 PM CDT us Brie Durant M.D. LAB SURG PATH ORDERABLES Ed ited Result - Final [facility] [address] [place] [address], [facility] METH [address] [place] [address] documented in this encounter Visit Diagnoses Diagnosis Malignant Neoplasm Of Breast Upper Outer Quadrant Female Right (HCC)- Primary Malignant Neoplasm Of Breast Upper Outer Quadrant Female Right (HCC) Malignant Neoplasm Of Breast Female Right (HCC) Malignant Neoplasm Of Breast Upper Outer Quadrant Female Right (HCC) Malignant Neoplasm Of Breast Upper Outer Quadrant Female Right (HCC)- Primary 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) documented in this encounter Admitting Diagnoses Diagnosis Malignant Neoplasm Of Breast Upper Outer Quadrant Female Right (HCC) Malignant Neoplasm Of Breast Female Right (HCC) documented in this encounter Administered Medications Inactive Administered Medications - up to 3 most recent administrations Medication Order MAR Action Action Date Dose Rate Site acetaminophen injection 1,000 mg 1,000 mg, intravenous, at 400 mL/hr, Administer over 15 Minutes, Once as needed, moderate pain or score 4-6 of 10, severe pain or score 7-10 of 10, mild pain or score 1-3 of 10, Starting on 10/30/24 at 1711, For 1 dose, PACU (only), Restriction Criteria (Pharmacy will review and approve if criteria met): Unable to take or tolerate medications administered via the enteral route or orally (not just NPO) New Bag 10/30/2024 5:15 PM CDT 1,000 mg 400 mL/hr acetaminophen tablet 1,000 mg (TylenoL) 1,000 mg, oral, Once, On Wed10/30/24 at 0800, For 1 dose, Pre-Op, Preprocedure on unit with sips Given 10/30/2024 9:14 AM CDT 1,000 mg acetaminophen tablet 1,000 mg (TylenoL) 1,000 mg, oral, Every 6 hours, First dose on Wed10/30/24 at 2300 Given 10/31/2024 10:38 AM CDT 1,000 mg Given 10/31/2024 5:39 AM CDT 1,000 mg Given 10/30/2024 10:58 PM CDT 1,000 mg BUPivacaine liposome (PF) 20 mL, BUPivacaine 30 mL in sodium chloride (PF) 0.9 % 100 mL injection As needed, Starting on Wed10/30/24 at 1521, Intra-Op Given 10/30/2024 3:21 PM CDT granisetron (PF) injection 1 mg (KytriL) 1 mg, intravenous, Once as needed, nausea, vomiting, Starting on Wed10/30/24 at 1707, For 1 dose, PACU (only), If patient does not respond to ondansetron or haloperidol. (order of antiemetic administration - ondansetron then haloperidol then granisetron) Given 10/30/2024 6:04 PM CDT 1 mg heparin (porcine) injection 5,000 Units 5,000 Units, subcutaneous, Every 8 hours scheduled, First dose on Wed10/30/24 at 2200 Given 10/31/2024 2:11 PM CDT 5,000 Units Right Upper Arm (Back) Given 10/31/2024 5:39 AM CDT 5,000 Units L eft Upper Arm (Back) Given 10/30/2024 9:08 PM CDT 5,000 Units R ight Upper Arm (Back) Lactated Ringer's 20 mL/hr, intravenous, Continuous, Starting on Wed10/30/24 at 1845, Continue for 4 hours or until oral intake is greater than 600 mL, whichever comes first. Restarted 10/30/2024 10:19 PM CDT 20 mL/hr 20 mL/hr Continued from OR 10/30/2024 6:45 PM CDT 20 mL/hr 20 mL/ hr ondansetron (PF) injection 4 mg (Zofran) 4 mg, intravenous, Every 6 hours PRN, nausea, vomiting, Starting on Wed10/30/24 at 1822, For 48 hours, Reassess for nausea or vomiting after at least 10 minutes. If nausea or vomiting persists administer next ordered antiemetic medications (order for antiemetic medication administration ondansetron then haloperidol then prochlorperazine). Given 10/30/2024 10:21 PM CDT 4 mg oxyCODONE IR tablet 10 mg (Roxicodone) 10 mg, oral, Every 4 hours PRN, severe pain or score 7-10 of 10, Starting on Wed10/30/24 at 1822, If both ketorolac and oxycodone ordered - give ketorolac first. If no response after 30 minutes give oxycodone. oxyCODONE IR tablet 5 mg (Roxicodone) 5 mg, oral, Every 4 hours PRN, moderate pain or score 4-6 of 10, Starting on Wed10/30/24 at 1822, If both ketorolac and oxycodone ordered - give ketorolac first. If no response after 30 minutes give oxycodone. Given 10/31/2024 11:01 AM CDT 5 mg Given 10/30/2024 8:00 PM CDT 5 mg prochlorperazine injection 5 mg (Compazine) 5 mg, intravenous, Every 6 hours PRN, nausea, vomiting, Starting on Wed10/30/24 at 1822, For 48 hours, RASS must be -2 or higher to administer. Reassess for nausea/vomiting after at least 10 minutes. If nausea or vomiting persists administer next ordered antiemetic medications (order for antiemetic medication administration ondansetron then haloperidol then prochlorperazine) Given 10/30/2024 8:06 PM CDT 5 mg sennosides-docusate sodium 8.6-50 mg per tablet 2 tablet (Senokot-S) 2 tablet, oral, Daily at bedtime, First dose on Wed10/30/24 at 2100, Hold for diarrhea Given 10/30/2024 9:07 PM CDT 2 tablets tranexamic acid 3 g/75 mL (40 mg/mL) in NaCl 0.9% sterile solution 75 mL 75 mL, topical, Once in surgery, OR use only, Starting on Wed10/30/24 at 0945, For 1 dose, Intra-Op, For topical, irrigation, or infiltration use ONLYIndications:Malignant Neoplasm Of Breast Upper Outer Quadrant Female Right (HCC) Given 10/30/2024 3:34 PM CDT 75 mL documented in this encounter Active and Recently Administered Medications Times are shown in CDT. Scheduled Medication Order 10/29/2024 10/30/2024 10/31/2024 acetaminophen tablet 1,000 mg (TylenoL) (COMPLETED) 1,000 mg, oral, Once, On Wed10/30/24 at 0800, For 1 dose, Pre-Op, Preprocedure on unit with sips 0914 (Given - Provider: Lily Denis RConchis) acetaminophen tablet 1,000 mg (TylenoL) 1,000 mg, oral, Every 6 hours, First dose on Wed10/30/24 at 2300 2258 (Given - Provider: Archana Santos R.N.) 0539 (Given - Provider: Radha Houston RNataliaNNatalia)1038 (Given - Provider: Nela Durham R.N.) ceFAZolin injection 2,000 mg (Ancef) (COMPLETED) 2,000 mg (rounded from 2,070 mg = 25 mg/kg 82.8 kg), intravenous, Once, On Wed10/30/24 at 1015, For 1 dose, Intra-Op, Preoperatively within 1 hour prior to surgical incision For immediate IV push administration, reconstitute vial per IVAG or package insert instructions. See IVAG for administration guidelines., Drug Monitoring Program: Pharmacist to adjust medication dosing based on indication and drug clearance factors., Indications: Prophylaxis, surgical 1132 (Given - Provider: Brady Bess APRN, MAYUR)1432 (Given - Provider: Brady Bess APRN, MAYUR) citalopram tablet 10 mg (CeleXA) 10 mg, oral, Daily at bedtime, First dose on Wed10/30/24 at 2100, On hold since Wed10/30/2024 at 2016 until manually unheld 2015 (Held by provider - Provider: Mor Luu M.D. - Comment: Interaction with Johny)2100 (Not Given - Provider: Archana Santos R.N. - Reason: See Provider Order) 171 (Unheld by provider - Provider: Discharge Provider, Automatic) heparin (porcine) injection 5,000 Units 5,000 Units, subcutaneous, Every 8 hours scheduled, First dose on Wed10/30/24 at 2200 210 (Given - Provider: Archana Santos R.N.) 0539 (Given - Provider: Tayo SuttonNNatalia)1411 (Given - Provider: Nela Durham RNataliaNNatalia) sennosides-docusate sodium 8.6-50 mg per tablet 2 tablet (Senokot-S) 2 tablet, oral, Daily at bedtime, First dose on Wed10/30/24 at 2100, Hold for diarrhea 2106 (Given - Provider: Archana Santos RAngi.) Continuous Medication Order 10/29/2024 10/30/2024 10/31/2024 Lactated Ringer's 20 mL/hr, intravenous, Continuous, Starting on Wed10/30/24 at 1845, Continue for 4 hours or until oral intake is greater than 600 mL, whichever comes first. 184 (Continued from OR - Provider: Tayo HernandezN.)2219 (Restarted - Provider: Archana Santos RNataliaN.) PRN Medication Order 10/29/2024 10/30/2024 10/31/2024 acetaminophen injection 1,000 mg (COMPLETED) 1,000 mg, intravenous, at 400 mL/hr, Administer over 15 Minutes, Once as needed, moderate pain or score 4-6 of 10, severe pain or score 7-10 of 10, mild pain or score 1-3 of 10, Starting on Wed10/30/24 at 1711, For 1 dose, PACU (only), Restriction Criteria (Pharmacy will review and approve if criteria met): Unable to take or tolerate medications administered via the enteral route or orally (not just NPO) 171 (New Bag - Provider: Celi Amador R.N.) BUPivacaine liposome (PF) 20 mL, BUPivacaine 30 mL in sodium chloride (PF) 0.9 % 100 mL injection (CANCELED) As needed, Starting on Wed10/30/24 at 1521, Intra-Op 1521 (Given - Provider: Suleiman Arredondo M.D. - Comment: Bilateral breast) granisetron (PF) injection 1 mg (KytriL) (COMPLETED) 1 mg, intravenous, Once as needed, nausea, vomiting, Starting on Wed10/30/24 at 1707, For 1 dose, PACU (only), If patient does not respond to ondansetron or haloperidol. (order of antiemetic administration - ondansetron then haloperidol then granisetron) 180 (Given - Provider: Celi Amador R.N.) melatonin tablet 3 mg 3 mg, oral, Bedtime PRN, sleep, Starting on Wed10/30/24 at 1822 naloxone injection 0.2 mg (Narcan) 0.2 mg, intravenous, As needed, respiratory depression, Starting on Wed10/30/24 at 1822, For RASS Score -4 or less, respiratory rate of less than 8 breaths/min. Notify provider/service and rapid response team (if available at institution). ondansetron (PF) injection 4 mg (Zofran) 4 mg, intravenous, Every 6 hours PRN, nausea, vomiting, Starting on Wed10/30/24 at 1822, For 48 hours, Reassess for nausea or vomiting after at least 10 minutes. If nausea or vomiting persists administer next ordered antiemetic medications (order for antiemetic medication administration ondansetron then haloperidol then prochlorperazine). 2220 (Given - Provider: Archana Santos R.N.) oxyCODONE IR tablet 10 mg (Roxicodone)(Linked Group 1) 10 mg, oral, Every 4 hours PRN, severe pain or score 7-10 of 10, Starting on Wed10/30/24 at 1822, If both ketorolac and oxycodone ordered - give ketorolac first. If no response after 30 minutes give oxycodone. 1999 (See Alternative - Provider: Archana Santos R.N.) 110 (See Alternative - Provider: Nela Durham R.N.) oxyCODONE IR tablet 5 mg (Roxicodone)(Linked Group 1) 5 mg, oral, Every 4 hours PRN, moderate pain or score 4-6 of 10, Starting on Wed10/30/24 at 1822, If both ketorolac and oxycodone ordered - give ketorolac first. If no response after 30 minutes give oxycodone. 1999 (Given - Provider: Archana Santos R.N.) 110 (Given - Provider: Nela Durham R.N.) prochlorperazine injection 5 mg (Compazine) 5 mg, intravenous, Every 6 hours PRN, nausea, vomiting, Starting on Wed10/30/24 at 1822, For 48 hours, RASS must be -2 or higher to administer. Reassess for nausea/vomiting after at least 10 minutes. If nausea or vomiting persists administer next ordered antiemetic medications (order for antiemetic medication administration ondansetron then haloperidol then prochlorperazine) 2005 (Given - Provider: Archana Santos R.N.) tranexamic acid 3 g/75 mL (40 mg/mL) in NaCl 0.9% sterile solution 75 mL (COMPLETED) 75 mL, topical, Once in surgery, OR use only, Starting on Wed10/30/24 at 0945, For 1 dose, Intra-Op, For topical, irrigation, or infiltration use ONLY 1534 (Given - Provider: Mine Meyers, B.Ch., Ph.D. - Comment: Bilateral breast) Linked Groups Order Group 1: oxyCODONE IR tablet 5 mg (Roxicodone)Jump to med 5 mg, oral, Every 4 hours PRN, moderate pain or score 4-6 of 10, Starting on Wed10/30/24 at 1822, If both ketorolac and oxycodone ordered - give ketorolac first. If no response after 30 minutes give oxycodone. Or oxyCODONE IR tablet 10 mg (Roxicodone)Jump to med 10 mg, oral, Every 4 hours PRN, severe pain or score 7-10 of 10, Starting on Wed10/30/24 at 1822, If both ketorolac and oxycodone ordered - give ketorolac first. If no response after 30 minutes give oxycodone. documented in this encounter Additional Health Concerns Assessment Noted Time PHQ-9 Depression Total Score: 3 10/28/19 25 9:43 AM CDT documented as of this encounter Care Teams Mining Captain Relationship Specialty Start Date End Date Elsewhere, Pcp PCP - General Internal Medicine 07/25/24 documented as of this encounter
--- OUTSIDE RECORDS SUMMARY | 2024-12-06 20:55 | XMS_ITS ---
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 on 11/08/2024 Hypertension Essential Primary 07/25/2024 Dyspnea On Exertion 07/25/2024 Patent Foramen [place]vale 07/25/2024 Migraine Headache 11/25/2011 Current Treatment and Therapy Plans Goserelin Acetate ( Zoladex ) Every 12 Weeks* Plan Start Date:11/13/2024 Plan Provider:Meghna Soto M.B., B.Ch. Linked Problems Malignant Neoplasm Of Breast Upper Outer Quadrant Female Right (HCC) Treatment Medications goserelin (Zoladex) Past Treatment and Therapy Plans No past plan information found.
--- OUTSIDE RECORDS SUMMARY | 2024-12-06 20:55 | XMS_ITS | Encounter Summary ---
Author Organization [facility] Address [address] [place] [address] Care Team Providers Care Court Supervisor Name Role Phone Elsewhere, Pcp Primary Care Provider Unavailabl e Encounter Details Date Type Department Care Team (Late st Contact Info) Description 11/27/2024 Ancillary Procedure Department of Plastic and Reconstructive Surgery Social History Tobacco Use Types Packs/Day Years Used Date Smoking Tobacco: Never Passive Smoke Exposure: Past Smokeless Tobacco: Never Alcohol Use Standard Drinks/Week Comments Not Currently 0 (1 standard drink = 0.6 oz pur e alcohol) [facility] Utilities Answer Date Recorded In [...] your living situation today? I have a [facility] [facility] place to live 10/30/2024 Comments No Sex and Gender Information Value Date Recorded Sex Assigned at Female 07/25/2024 9:49 AM [employer] Legal Sex Female 6:01 PM [employer] Gender Identity Female 07/25/2024 9:49 AM [employer] Sexual Orientation Straight 07/25/2024 9: 49 AM [employer] documented as of this encounter Plan of Treatment Upcoming Encounters Date Type Department Care Team (Late st Contact Info) Description 12/07/2024 10:15 AM CDT Appointment Department of Radiation Oncology in [place], [place] [address] [place] [phone] Tim Navarro M.D., Ph.D. [address] [place] [phone] 12/07/2024 11:30 AM CDT Appointment Department of Radiation Oncology in [place], [place] [address] [place] [phone] Tim Navarro M.D., Ph.D. [address] [place] [phone] Christy Wade R.N. [address] [place] [phone] 12/07/2024 12:20 PM CDT Appointment Department of Radiology, [facility], in [place], [place] [address] [place] [phone] Meghna Soto M.B., B.Ch. [address] [place] [phone] 12/07/2024 2:40 PM CDT Office Visit Department of Oncology in [place], [place] [address] [place] [phone] Meghna Soto M.B., B.Ch. [address] [place] [phone] 12/08/2024 8:00 AM CDT Telemedicine Department of Oncology in [place], [place] [address] [place] [phone] Haim Mueller, FRENCH COMBER, C.N.P., D.N.P. [address] [place] [phone] Brooklyn Lombardi, P.Philippe.-C., M.S. [address] [place] [phone] 12/15/2024 10:00 AM CDT Virtual Visit Department of Cardiovascular Medicine in [place], [place] [address] [place] [phone] Soto Ta M.D., Ph.D. [address] [place] [phone] 02/05/2025 9:30 AM CDT Infusion Department of Infusion Therapy in [place], [place] [address] [place] [phone] Meghna Soto M.B., B.Ch. [address] [place] [phone] documented as of this encounter Procedures Procedure Name Priority Date/Time Associated Diagnosis Comments PLASTIC AND RECON SURGERY IMAGE EXAM Routine 11/27/2024 12:00 AM CDT documented in this encounter Results * Breast Closure-Plastic And Recon Surgery Image Exam (11/27/2024 12:00 AM CDT) Narrative [facility] - 11/27/2024 3:57 PM CDT [...] Assessment Noted Time PHQ-9 Depression Total Score: 4 11/25/19 25 3:38 PM CDT documented as of this encounter Care Teams Court Supervisor Relationship Specialty Start Date End Date Elsewhere, Pcp PCP - General Internal Medicine 07/25/24 documented as of this encounter
--- OUTSIDE RECORDS SUMMARY | 2024-12-06 20:55 | XMS_ITS | Encounter Summary ---
Author Organization [facility] Address [address] [place] [address] Care Team Providers Care Ancillary Specialist Name Role Phone Elsewhere, Pcp Primary Care Provider Unavailabl e Encounter Details Date Type Department Care Team (Late st Contact Info) Description 11/20/2024 Clinical Communication Department of Oncology in [place], [place] [address] [place] [phone] Leonarda Box R.NNatalia [address] [place] [phone] Social History Tobacco Use Types Packs/Day Years Used Date Smoking Tobacco: Never Passive Smoke Exposure: Past Smokeless Tobacco: Never Alcohol Use Standard Drinks/Week Comments Not Currently 0 (1 standard drink = 0.6 oz pur e alcohol) [facility] Utilities Answer Date Recorded In the past 12 months has [employer], gas, oil, or water [employer] threatened to shut off services in your [...] Date Recorded Employment status Working with temporary [email or web address] 07/25/2024 Housing Stability Answer Date Recorded What is your living situation today? I have a [facility] place to live 10/30/2024 Comments No Sex and Gender Information Value Date Recorded Sex Assigned at Female 07/25/2024 9:49 AM FRONT OFFICE AGENT Legal Sex Female 6:01 PM FRONT OFFICE AGENT Gender Identity Female 07/25/2024 9:49 AM FRONT OFFICE AGENT Sexual Orientation Straight 07/25/2024 9: 49 AM FRONT OFFICE AGENT documented as of this encounter Plan of Treatment Upcoming Encounters Date Type Department Care Team (Late st Contact Info) Description 12/07/2024 10:15 AM CDT Appointment Department of Radiation Oncology in [place], [place] [address] [place] [phone] Tim Navarro M.D., Ph.D. [address] [place] [phone] 12/07/2024 11:30 AM CDT Appointment Department of Radiation Oncology in [place], [place] [address] [place] [phone] Tim Navarro M.D., Ph.D. [address] [place] [phone] Christy Wade R.N. [address] [place] [phone] 12/07/2024 12:20 PM CDT Appointment Department of Radiology, [facility], in [place], [place] [address] [place] [phone] Meghna Soto M.B., B.Ch. [address] [place] [phone] 12/07/2024 2:40 PM CDT Office Visit Department of Oncology in [place], [place] [address] [place] [phone] Meghna Soto M.B., B.Ch. [address] [place] [phone] 12/08/2024 8:00 AM CDT Telemedicine Department of Oncology in [place], [place] [address] [place] [phone] Haim Mueller, PLASTIC INSTALLER, C.N.P., D.N.P. [address] [place] [phone] Brooklyn Lombardi PLety.-C., M.S. [address] [place] [phone] 12/15/2024 10:00 AM CDT Virtual Visit Department of Cardiovascular Medicine in [place], [place] [address] [place] [phone] Soto Ta M.D., Ph.D. [address] [place] [phone] 02/05/2025 9:30 AM CDT Infusion Department of Infusion Therapy in [place], [place] [address] [place] [phone] Meghna Soto M.B., B.Ch. [address] [place] [phone] documented as of this encounter Visit Diagnoses Not on filedocumented in this encounter Additional Health Concerns Assessment Noted Time PHQ-9 Depression Total Score: 3 10/28/19 25 9:43 AM CDT documented as of this encounter Care Teams Ancillary Specialist Relationship Specialty Start Date End Date Elsewhere, Pcp PCP - General Internal Medicine 07/25/24 documented as of this encounter
--- OUTSIDE RECORDS SUMMARY | 2024-12-06 20:55 | XMS_ITS | Encounter Summary ---
Author Organization [facility] Address [address] [place] [address] Care Team Providers Care Pre Owned Sales Manager Name Role Phone Elsewhere, Pcp Primary Care Provider Unavailabl e Encounter Details Date Type Department Care Team (Late st Contact Info) Description 11/13/2024 Ancillary Procedure Department of Plastic and Reconstructive Surgery Social History Tobacco Use Types Packs/Day Years Used Date Smoking Tobacco: Never Passive Smoke Exposure: Past Smokeless Tobacco: Never Alcohol Use Standard Drinks/Week Comments Not Currently 0 (1 standard drink = 0.6 oz pur e alcohol) [facility] Utilities Answer Date Recorded In [...] your living situation today? I have a [facility] place to live 10/30/2024 Comments No Sex and Gender Information Value Date Recorded Sex Assigned at Female 07/25/2024 9:49 AM HEAD SAWYER AUTOMATIC Legal Sex Female 6:01 PM HEAD SAWYER AUTOMATIC Gender Identity Female 07/25/2024 9:49 AM HEAD SAWYER AUTOMATIC Sexual Orientation Straight 07/25/2024 9: 49 AM HEAD SAWYER AUTOMATIC documented as of this encounter Plan of Treatment Upcoming Encounters Date Type Department Care Team (Late st Contact Info) Description 12/07/2024 10:15 AM CDT Appointment Department of Radiation Oncology in [place], [place] [address] [place] [phone] Tim Navarro M.D., Ph.D. [address] [place] [phone] 12/07/2024 11:30 AM CDT Appointment Department of Radiation Oncology in [place], [place] [address] [place] [phone] Tim Navarro M.D., Ph.D. [address] [place] [phone] Christy Wade R.N. [address] [place] [phone] 12/07/2024 12:20 PM CDT Appointment Department of Radiology, [facility], in [place], [place] [address] [place] [phone] Meghna Soto M.B., B.Ch. [address] [place] [phone] 12/07/2024 2:40 PM CDT Office Visit Department of Oncology in [place], [place] [address] [place] [phone] Meghna Soto M.B., B.Ch. [address] [place] [phone] 12/08/2024 8:00 AM CDT Telemedicine Department of Oncology in [place], [place] [address] [place] [phone] Haim Mueller, COMMERCIAL DRONE PILOT, C.N.P., D.N.P. [address] [place] [phone] Brooklyn Lombardi, P.Philippe.-C., M.S. [address] [place] [phone] 12/15/2024 10:00 AM CDT Virtual Visit Department of Cardiovascular Medicine in [place], [place] [address] [place] [phone] Soto Ta M.D., Ph.D. [address] [place] [phone] 02/05/2025 9:30 AM CDT Infusion Department of Infusion Therapy in [place], [place] [address] [place] [phone] Meghna Soto M.B., B.Ch. [address] [place] [phone] documented as of this encounter Procedures Procedure Name Priority Date/Time Associated Diagnosis Comments PLASTIC AND RECON SURGERY IMAGE EXAM Routine 11/13/2024 12:00 AM CDT documented in this encounter Results * Breast Closure-Plastic And Recon Surgery Image Exam (11/13/2024 12:00 AM CDT) Narrative [facility] - 11/13/2024 9:23 AM CDT This order has been created and [...] documented as of this encounter Care Teams Pre Owned Sales Manager Relationship Specialty Start Date End Date Elsewhere, Pcp PCP - General Internal Medicine 07/25/24 documented as of this encounter
--- OUTSIDE RECORDS SUMMARY | 2024-12-06 20:55 | XMS_ITS | Encounter Summary ---
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 [address] [place] [phone] Phone: tel: fax: Meghna Soto M.B., B.Ch. [address] [place] [phone] Phone: tel: fax: Referral ID Status Reason Start Date Expiration Date V isits Requested Visits Authorized [id number] Authorized 11/13/2024 02/13/2026 99 99 Encounter Details Date Type Department Care Team (Late st Contact Info) Description 11/13/2024 9:30 AM CDT Infusion Department of Infusion Therapy in [place], [place] [address] [place] [phone] Meghna Soto M.B., B.Ch. [address] [place] [phone] Malignant Neoplasm Of Breast Upper Outer Quadrant Female Right (HCC) (Primary Dx) Discharge Disposition: Home or Self Care Social History Tobacco Use Types Packs/Day Years Used Date Smoking Tobacco: Never Passive Smoke Exposure: Past Smokeless Tobacco: Never Alcohol Use Standard Drinks/Week Comments Not Currently 0 (1 standard drink = 0.6 oz pur e alcohol) [facility] Utilities Answer Date Recorded In the past 12 months has th e [employer], gas, oil, or water [employer] threatened to shut off services in your [...] your living situation today? I have a [facility] place to live 10/30/2024 Comments No Sex and Gender Information Value Date Recorded Sex Assigned at Female 07/25/2024 9:49 AM SPRING SALVAGE WORKER Legal Sex Female 6:01 PM SPRING SALVAGE WORKER Gender Identity Female 07/25/2024 9:49 AM SPRING SALVAGE WORKER Sexual Orientation Straight 07/25/2024 9: 49 AM SPRING SALVAGE WORKER documented as of this encounter Last Filed Vital Signs Vital Sign Reading Time Taken Comments Blood Pressure 131/83 11/13/2024 9:21 AM CDT Pulse 76 11/13/2024 9:21 AM CDT Temperature 36.5 C (97.7 F) 11/13/2024 9:21 AM CDT Respiratory Rate 20 11/13/2024 9:21 AM CDT Oxygen Saturation - - Inhaled Oxygen Concentration - - Weight - - Height - - Body Mass Index - - documented in this encounter Plan of Treatment Upcoming Encounters Date Type Department Care Team (Late st Contact Info) Description 12/07/2024 10:15 AM CDT Appointment Department of Radiation Oncology in [address] [phone] Tim Navarro M.D., Ph.D. [address] [place] [phone] 12/07/2024 11:30 AM CDT Appointment Department of Radiation Oncology in [address] [phone] Tim Navarro M.D., Ph.D. [address] [place] [phone] Christy Wade R.N. [address] [place] [phone] 12/07/2024 12:20 PM CDT Appointment Department of Radiology, [facility], in [place], [place] [address] [place] [phone] Meghna Soto M.B., B.Ch. [address] [place] [phone] 12/07/2024 2:40 PM CDT Office Visit Department of Oncology in [place], [place] [address] [place] [phone] Meghna Soto M.B., B.Ch. [address] [place] [phone] 12/08/2024 8:00 AM CDT Telemedicine Department of Oncology in [place], [place] [address] [place] [phone] Haim Mueller, KRISSY, C.N.P., D.N.P. [address] [place] [phone] Brooklyn Lombardi P.A.-C., M.S. [address] [place] [phone] 12/15/2024 10:00 AM CDT Virtual Visit Department of Cardiovascular Medicine in [place], [place] [address] [place] [phone] Soto Ta M.D., Ph.D. [address] [place] [phone] 02/05/2025 9:30 AM CDT Infusion Department of Infusion Therapy in [place], [place] [address] [place] [phone] Meghna Soto M.B., B.Ch. 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) documented in this encounter Administered Medications Inactive Administered Medications - up to 3 most recent administrations Medication Order MAR Action Action Date Dose Rate Site goserelin implant 10.8 mg (Zoladex) 10.8 mg, subcutaneous, Once, On 3/31/25 at 0945, For 1 dose, Give after administration of lidocaine.Indications:Kate gnant Neoplasm Of Breast Upper Outer Quadrant Female Right (HCC) Given 11/13/2024 9:59 AM CDT 10.8 mg Right Lower Abdomen lidocaine 10 mg/mL (1 %) injection 1 mL (Xylocaine) 1 mL, subcutaneous, Once, On Wed11/13/24 at 0945, For 1 dose, Give before administering Goserelin Acetate.Indications:Malign ant Neoplasm Of Breast Upper Outer Quadrant Female Right (HCC) Given 11/13/2024 9:59 AM CDT 1 mL Right Lower Abdomen documented in this encounter Additional Health Concerns Assessment Noted Time PHQ-9 Depression Total Score: 3 10/28/19 9:43 AM CDT documented as of this encounter Care Teams Assembling Machine Operator Relationship Specialty Start Date End Date Elsewhere, Pcp PCP - General Internal Medicine 07/25/24 documented as of this encounter
--- OUTSIDE RECORDS SUMMARY | 2024-12-06 20:55 | XMS_ITS | Encounter Summary ---
Author Organization [facility] Address [address] [place] [address] Care Team Providers Care Electrical Tech Name Role Phone Elsewhere, Pcp Primary Care Provider Unavailabl e Reason for Visit * Outpatient (Routine) - Closed Specialty Diagnoses / Procedures Referred By Safia garcia Referred To Contact Tre Dumas M.D. [address] [place] [phone] Phone: tel: fax: [facility] Referral ID Status Reason Start Date Expiration Date Visits Re quested Visits Authorized [id number] Closed 10/25/2024 04/26/2026 1 1 Encounter Details Date Type Department Care Team (Latest Contact Info) Description 11/27/2024 5:00 PM CDT Virtual Visit Department of Cardiovascular Medicine in [place], [place] [address] [place] [phone] Tre Dumas M.D. [address] [place] [address] [phone] Patent Foramen Ovale (HCC) (Primary Dx); Hypertension [...] In the past 12 months has e [employer], gas, oil, or water [employer] threatened to shut off services in your [...] Date Recorded Employment status Working with temporary [employer] 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 I have a [facility] place to live 10/30/2024 Comments No Sex and Gender Information Value Date Recorded Sex Assigned at Female 07/25/2024 9:49 AM HALAL BUTCHER Legal Sex Female 6:01 PM HALAL BUTCHER Gender Identity Female 07/25/2024 9:49 AM HALAL BUTCHER Sexual Orientation Straight 07/25/2024 9: 49 AM HALAL BUTCHER documented as of this encounter Consult Notes * Tre Dumas M.D. - 11/27/2024 5:00 PM CDT [id number] PHONE VISIT: SUBJECTIVE A phone call care discussion was completed consistent with [facility] institutional direction. This visit was performed by telephone call today. HISTORY OF PRESENT ILLNESS Mrs. Ayers is now nearly a month S/P mastectomy for breast HUGH. She will not be receiving chemotherapy but will received endocrine-adjuvant therapy and radiotherapy (proton vs photonics). I have renewed the low dose apixaban for now. She did not have any bleeding nor clotting issues post-operatively. I did visit with Dr. Ta who will be doing a phone visit with her on 12/15/24. I suggested that if the PFO is closed would defer it until after her radiotherapy was completed. 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 Dr. Ta to do phone visit on 12/15/24. NEXT VISIT PREFERENCE: Face to face or virtual. I spent 5 minutes reviewing records, testing, discussion and follow up. documented in this encounter Plan of Treatment Upcoming Encounters Date Type Department Care Team (Late st Contact Info) Description 12/07/2024 10:15 AM CDT Appointment Department of Radiation Oncology in [place], [place] [address] [place] [phone] Tim Navarro M.D., Ph.D. [address] [place] [phone] 12/07/2024 11:30 AM CDT Appointment Department of Radiation Oncology in [place], [place] [address] [place] [phone] Tim Navarro M.D., Ph.D. [address] [place] [phone] Christy Wade R.N. [address] [place] [phone] 12/07/2024 12:20 PM CDT Appointment Department of Radiology, [facility], in [place], [place] [address] [place] [phone] Meghna Soto M.B., B.Ch. [address] [place] [phone] 12/07/2024 2:40 PM CDT Office Visit Department of Oncology in [place], [place] [address] [place] [phone] Meghna Soto M.B., B.Ch. [address] [place] [phone] 12/08/2024 8:00 AM CDT Telemedicine Department of Oncology in [place], [place] [address] [place] [phone] Haim Mueller, KRISSY, C.N.P., D.N.P. [address] [place] [phone] Brooklyn Lombardi PLety.-Sajan., M.S. [address] [place] [phone] 12/15/2024 10:00 AM CDT Virtual Visit Department of Cardiovascular Medicine in [place], [place] [address] [place] [phone] Soto Ta M.D., Ph.D. [address] [place] [phone] 02/05/2025 9:30 AM CDT Infusion Department of Infusion Therapy in [place], [place] [address] [place] [phone] Meghna Soto M.B., B.Ch. 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
--- OUTSIDE RECORDS SUMMARY | 2024-12-06 20:55 | XMS_ITS | Encounter Summary ---
Author Organization [facility] Address [address] [place] [phone] Care Team Providers Care Cable Repairer Name Role Phone Elsewhere, Pcp Primary Care Provider Unavailabl e Reason for Visit * Outpatient (Routine) - Closed Specialty Diagnoses / Procedures Referred By Safia garcia Referred To Contact Plastic Surgery Yoon Hamilton APRN, C.N.P., D.N.P. [address] [place] [phone] Phone: tel: fax: [facility] Referral ID Status Reason Start Date Expiration Date Visits Re quested Visits Authorized [id number] Closed 11/13/2024 05/15/2026 1 1 Encounter Details Date Type Department Care Team (Latest Contact Info) Description 11/27/2024 1:30 PM CDT Office Visit Division of Plastic Surgery in [place], [place] [address] [place] [phone] Yoon Hamilton APRN, C.N.P., D.N.P. [address] [place] [phone] Follow Up Examination Postoperative Visit (Primary Dx) Social History Tobacco Use Types Packs/Day Years Used Date Smoking Tobacco: Never Passive Smoke Exposure: Past Smokeless Tobacco: Never Alcohol Use Standard Drinks/Week Comments Not Currently 0 (1 standard drink = 0.6 oz pur e alcohol) [facility] Utilities Answer Date Recorded In the [...] Date Recorded Employment status Working with temporary 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 I have a [facility] place to live 10/30/2024 Comments No Sex and Gender Information Value Date Recorded Sex Assigned at Female 07/25/2024 9:49 AM CRNP Legal Sex Female 6:01 PM CRNP Gender Identity Female 07/25/2024 9:49 AM CRNP Sexual Orientation Straight 07/25/2024 9: 49 AM CRNP documented as of this encounter Progress Notes * oYon Hamilton, KRISSY, C.N.P., D.N.P. - 11/27/2024 1:30 PM CDT SUBJECTIVE CHIEF COMPLAINT / REASON FOR VISIT 1. Maryam underwent bilateral simple mastectomy with Dr. Durant followed by flat closure with Dr. Mcclendon on 10/30/2024. 2. Routine Post Op visit - 4 weeks HISTORY OF PRESENT ILLNESS Maryam is a very pleasant 54 y.o. female who presents today for a routine postoperative visit. She has a history of right breast cancer and underwent bilateral simple mastectomy with Dr. Durant followedby flat closure with Dr. Mcclendon on 10/30/2024. She reports she is doing well overall. She endorses 1 to 2/10 pain and is no longer taking any analgesics for surgical site discomfort. She reports that most of her pain is due to the compression garments rubbing under her armpits. She denies signs/symptoms of infection, specifically fevers, chills, malaise, strange drainage fromsurgical site, swelling or bulging of surgical site. She reports she is following all activity restrictions and is wearing compression garments 08/03 as instructed. Overall, she is doing well since surgery and has no major concerns. She is anticipating adjuvant radiation for 3 weeks, starting 12/18/2024. REVIEW OF SYSTEMS Pertinent items noted in HPI. OBJECTIVE PHYSICAL EXAMINATION General: Patient is alert and oriented x 3. She does not appear to be in acute distress. Very pleasant and accompanied by her . Chest: Breast incisions appear clean, dry, intact and no erythema or drainage noted. Appear pristine. No obvious signs of fluid accumulation or infection noted bilaterally. ASSESSMENT / PLAN 1. Maryam underwent bilateral simple mastectomy with Dr. Durant followed by flat closure with Dr. Mcclendon on 10/30/2024. 2. Routine Post Op visit - 4 weeks It was a pleasure seeing Maryam today in the clinic. She is recovering nicely after her recent surgery. No concerns on exam today. As the patient is now 4 weeks out from surgery, she may gradually progress with activity and lifting as tolerated. I recommend she avoid anything strenuous or vigorous until 6 weeks postop. She may discontinue wearing her compression garments at this time. Showers continue to be okay, but I would like her to avoid submerging in any bodies of water until all incisions are healed without scabbing or otherwise compromised, likely around 6-8 weeks. We discussed scar care options for incision sites. She may utilize vitamin E oil massages, Scar Fade, silicone gel tape (Mepitac), or silicone gel 1-2 times daily for the next 2-3 months. RecommendedSPF >30 and reduction of sun exposure to prevent hyperpigmentation of scars. Signs/symptoms of an infection were reviewed with the patient and she was instructed to call us immediately if any of these occur. Follow up as needed. Patient has all appropriate phone numbers to call in case she has questions or concerns. Photographs obtained with patient's permission. All questions were asked and answered per patient report. documented in this encounter Plan of Treatment Upcoming Encounters Date Type Department Care Team (Late st Contact Info) Description 12/07/2024 10:15 AM CDT Appointment Department of Radiation Oncology in [address] [phone] Tim Navarro M.D., Ph.D. [address] [place] [phone] 12/07/2024 11:30 AM CDT Appointment Department of Radiation Oncology in [address] [phone] Tim Navarro M.D., Ph.D. [address] [place] [phone] Christy Wade R.N. [address] [place] [phone] 12/07/2024 12:20 PM CDT Appointment Department of Radiology, [facility], in [address] [phone] Meghna Soto M.B., B.Ch. [address] [place] [phone] 12/07/2024 2:40 PM CDT Office Visit Department of Oncology in [place], [place] [address] [place] [phone] Meghna Soto M.B., B.Ch. [address] [place] [phone] 12/08/2024 8:00 AM CDT Telemedicine Department of Oncology in [place], [place] [address] [place] [phone] Haim Mueller APRN, C.N.P., D.N.P. [address] [place] [phone] Brooklyn Lombardi P.A.-C., M.S. [address] [place] [phone] 12/15/2024 10:00 AM CDT Virtual Visit Department of Cardiovascular Medicine in [place], [place] [address] [place] [phone] Soto Ta M.D., Ph.D. [address] [place] [phone] 02/05/2025 9:30 AM CDT Infusion Department of Infusion Therapy in [place], [place] [address] [place] [phone] Meghna Soto M.B., B.Ch. 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
--- OUTSIDE RECORDS SUMMARY | 2024-12-06 20:55 | XMS_ITS | Encounter Summary ---
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 200 [place] [address] Phone: tel: fax: Referral ID Status Reason Start Date Expiration Date Visits Re quested Visits Authorized [id number] 1 1 Encounter Details Date Type Department Care Team (Latest Contact Info) Description 10/30/2024 6:43 AM CDT - 10/31/2024 3:13 PM CDT Hospital Encounter [facility], [facility], [facility], Sixth Floor [address] [place] [phone] Brie Durant M.D. 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 I have a [facility] place to live 10/30/2024 Comments No Sex and Gender Information Value Date Recorded Sex Assigned at Female 07/25/2024 9:49 AM PHARMACOLOGY TEACHER Legal Sex Female 6:01 PM PHARMACOLOGY TEACHER Gender Identity Female 07/25/2024 9:49 AM PHARMACOLOGY TEACHER Sexual Orientation Straight 07/25/2024 9: 49 AM PHARMACOLOGY TEACHER documented as of this encounter Last Filed Vital Signs Vital Sign Reading Time Taken Comments Blood Pressure 103/63 10/31/2024 1:00 PM CDT Pulse 79 10/31/2024 1:00 PM CDT Temperature 37.4 C (99.3 F) 10/31/2024 1:00 PM CDT Respiratory Rate 16 10/31/2024 1:00 PM CDT Oxygen Saturation 91% 10/31/2024 1:00 PM CDT Inhaled Oxygen Concentration - - Weight 82.8 kg (182 lb 8.7 oz) 10/30/2024 7:34 A M CDT Height 166 cm (5' 5.35) 10/30/2024 7:34 AM CDT Body Mass Index 30.05 10/30/2024 7:34 AM CDT documented in this encounter Discharge Summaries * Mor Luu M.D. - 10/31/2024 1:06 PM CDT DISCHARGE SUMMARY BRIEF OVERVIEW Hospital: [facility] Discharge Provider: Brie Durant M.D. Primary Team: T General Surgery - Bhargav Primary Care Providers: [...] FLAT CLOSURE, ASSISTANCE WITH CLOSURE Brie Durant M.D.SywyRafael davenport D.M.D.Beiswanger, Madeline E, P.A.-C., M.S.Foster Mcclendon B.M., B.Ch., [...] through Care Everywhere. * Acetaminophen (By mouth) (Barbadian) * Apixaban (By mouth) (Barbadian) * Ondansetron (By mouth, Into the mouth) (Barbadian) * Oxycodone, Rapid Release (By mouth) (Barbadian) * Senna (By mouth) (Barbadian) documented in this encounter Medications at Time [...] this encounter Progress Notes * Anderson Cedillo PharmEdwige, R.Ph. - 10/31/2024 11:59 AM CDT Pharmacist [...] home dose citalopram if patient not discharged 10/31 PM (currently on Oct) CV History of PFO - plan to discharge on 4 weeks of Eliquis 2.5mg BID Changes to medications anticipated at discharge: pain regimen, bowel regimen, Eliquis [place] 6-[place] [phone] with questions. Anderson Cedillo, PharmNataliaD., R.Ph. * [...] aspirin for 4 weeks while on Eliquis. Herdrains are managed by Plastic Surgery and will remain until meeting drain removal criteria. She hasfollow-up scheduled with our team and Plastic Surgery. [place] [phone] with any questions. * Kath Mendoza, Kaitlynn, R.Ph., BCPS - 10/30/2024 7:32 AM CDT Images from the original note were not included. Admission Medication History Note Adherence issues: No concerns Medication list source: Patient Medication related information: - Pt reports intolerance to morphine: itching. Has tolerated other pain medications with no problems. Prior to Admission Medications Med List Status: Pharmacy Complete Set By: Kath Mendoza, Mayo., R.Ph., BCPS at 10/30/2024 7:32 AM Taking? [...] mouth at bedtime as needed for sleep. Electronically signed by Kath Mendoza, PharmDarlene., R.Ph., [facility] at 10/30/2024 7:33 AM CDT documented in this encounter Nursing Notes * Nela Durham R.N. - 10/31/2024 2:52 PM CDT Shift Goals: [...] belongings. Problem: Risk for Compromised Skin Integrity-Other Vessel Slagman(s) Goal: Risk for Compromised Skin Integrity-Other Vessel Slagman(s) Outcome: Adequate for Discharge Problem: PAIN - [...] Quadrant Female Right (HCC) Left breast DCIS Etcher Apprentice Photoengraving A engineer first assistant actively participated and was necessary for [...] margin re-excision: none Right Axilla Procedure(s) Right [place] Lymph Node Biopsy: SLN mapping agents: Tc-99 sulfur colloid periareolar by radiology day of operation and blue dye notused Incision: performed through breast incision Depth of sentinel node(s): deep - clavipectoral fascia was divided to identify the SLNs Analysis of sentinel nodes: permanent section pending Commission on Cancer Right [place] Lymph Node Biopsy Critical Element Summary Operation [...] N/A Surgeon: Brie Durant MD Cosurgeon: None. Etcher Apprentice Photoengraving: Mor Luu MD Additional Newspaper Photo Editor: HOLLIE Ritchie Type of Procedure: The patient [...] draped in standard sterile fashion. With the Firestone counter, a technetium hot spot was identified [...] to enter the deep axilla. With the Shady counter, 2 hot spots were identified. They [...] The background count measured 23 with the Firestone counter. There were no palpable or visible abnormalities in the remaining axilla. Hemostasis was achieved with electrocautery and hemoclips. The wound was copiously [...] Breast Upper Outer Quadrant Female Right (HCC) Etcher Apprentice Photoengraving A engineer first assistant actively participated and was necessary for [...] and then used TXA topically. X2 15 urdu drains were placed. We then injected the [...] Arredondo M.D. Cosigned by Foster Mcclendon B.M., Yani., Ph.D. at 11/01/2024 7:37 AM CDT * Op Note - Foster Mcclendon B.M., Rm, Ph.D. 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 Mine Csatro, B.Ch., Ph.D. * Brief Op Note - oMr Luu M.D. - 10/30/2024 11:53 AM CDT [...] Luu M.D. - 10/30/2024 11:01 AM CDT Maryamsaroj Ayers presented to [facility] for bilateral [...] CDT Appointment Department of Radiation Oncology in [address] [phone] Tim Navarro M.D., Ph.D. [address] [place] [phone] 12/07/2024 11:30 AM CDT Appointment Department of Radiation Oncology in [place], [place] [address] [place] [phone] Tim Navarro M.D., Ph.D. [address] [place] [phone] Christy Wade R.N. [address] [place] [phone] 12/07/2024 12:20 PM CDT Appointment Department of Radiology, [facility], in [place], [place] [address] [place] [phone] Meghna Soto M.B., B.Ch. [address] [place] [phone] 12/07/2024 2:40 PM CDT Office Visit Department of Oncology in [place] [address] [place] [phone] Meghna Soto M.B., B.Ch. [address] [place] [phone] 12/08/2024 8:00 AM CDT Telemedicine Department of Oncology in [place], [place] [address] [place] [phone] Haim Mueller, KRISSY, C.N.P., D.N.P. [address] [place] [phone] Brooklyn Lombardi P.A.-C., M.S. [address] [place] [phone] 12/15/2024 10:00 AM CDT Virtual Visit Department of Cardiovascular Medicine in [place], [place] [address] [place] [phone] Soto Ta M.D., Ph.D. [address] [place] [phone] 02/05/2025 9:30 AM CDT Infusion Department of Infusion Therapy in [place], [place] [address] [place] [phone] Meghna Soto M.B., B.Ch. [address] [place] [phone] documented as of this encounter Procedures Procedure [...] frozen and permanent sections. Grossed by HARRY AvalosHOLLIE (ASCP). B. Received fresh labeled right axillary sentinel lymph node No. 2 is a single 1 x 1 x 0.6 cm lymph node. Blue dye is not identified in the lymph node. All submitted for frozen and permanent sections. Grossed by Daphnie Matthews M.S., HOLLIE[facility] C. Received fresh labeled right breast total [...] 60% adipose and 40% fibrocystic tissues, grossly. Photonic Laboratory Technician tissue submitted for frozen and permanent sections. After clinical evaluation, residual tissue is procured for IRB No. [id number]. Grossed by Av Spence M.S., HOLLIE([facility]). D. Received fresh labeled left breast total [...] fibrous tissue and 40% adipose tissue, grossly. Photonic Laboratory Technician tissue submitted for frozen and permanent sections. After clinical evaluation, residual tissue is procured for IRB No. [id number]. Grossed by Daphnie Matthews M.S., HOLLIE([facility]). E. Received fresh labeled right breast lateral tissue is a 43 g aggregate of fibroadipose tissue and skin. No masses identified. Photonic Laboratory Technician tissue submitted for permanent sections. Grossed by Av Spence M.S., HOLLIE([facility]). 11/02/2024 11:53 AM CDT METH Block Summary [...] will be performed on block [place]. Signed by Cezar Herrera M.D. 11/13/2024 [...] Histologic Type: Invasive lobular carcinoma Histologic Grade ([place] Histologic Score) Glandular (Acinar)/Tubular Differentiation: Score 3 [...] ns present in non-neoplastic tissue Residual Cancer [place] (RCB) Calculation: Not applicable Margins Margin Status [...] and 2 long lateral Tissue (Lymph Node, [place]) 10/30/2024 12:58 PM CDT Tissue (Lymph Node, [place]) 10/30/2024 1:00 PM CDT Tissue (Breast, Right) 10/30/2024 3:18 PM CDT us Brie Durant M.D. LAB SURG PATH ORDERABLES Ed ited Result - Final [facility] [address] [place] [address], [facility] METH [address] [place] [address] documented in this encounter Visit Diagnoses Diagnosis [...] Given 10/30/2024 10:58 PM CDT 1,000 mg granisetron (PF) injection 1 mg (KytriL) 1 [...] Given 10/30/2024 9:07 PM CDT 2 tablets documented in this encounter Active and Recently Administered Medications Times are shown in CDT. Scheduled Medication Order 10/29/2024 10/30/2024 10/31/2024 acetaminophen tablet 1,000 mg (TylenoL) (COMPLETED) 1,000 mg, oral, Once, On Wed10/30/24 at 0800, For 1 dose, Pre-Op, Preprocedure on unit with sips 0914 (Given - Provider: Tayo MenardNNatalia) acetaminophen tablet 1,000 mg (TylenoL) 1,000 mg, oral, Every 6 hours, First dose on Wed10/30/24 at 2300 2258 (Given - Provider: Archana Santos RConchis) 0539 (Given - Provider: Radha Houston R.N.)1038 (Given - Provider: Tayo ZambranoNNatalia) ceFAZolin injection 2,000 mg (Ancef) (COMPLETED) 2,000 [...] Mor Luu M.D. - Comment: Interaction with Zofrjeremy)2100 (Not Given - Provider: Archana Santos R.N. - Reason: See Provider Order) 1718 (Unheld by provider - Provider: Discharge Provider, Automatic) heparin (porcine) injection 5,000 Units 5,000 Units, subcutaneous, Every 8 hours scheduled, First dose on Wed10/30/24 at 2200 2108 (Given - Provider: Archana Santos R.N.) 0539 (Given - Provider: Radha Houston RNataliaNNatalia)1411 (Given - Provider: Tayo ZambranoNNatalia) sennosides-docusate sodium 8.6-50 mg per tablet 2 tablet (Senokot-S) 2 tablet, oral, Daily at bedtime, First dose on Wed10/30/24 at 2100, Hold for diarrhea 2106 (Given - Provider: Archaan Santos R.N.) Continuous Medication Order 10/29/2024 10/30/2024 10/31/2024 Lactated Ringer's 20 mL/hr, intravenous, Continuous, Starting on Wed10/30/24 at 1845, Continue for 4 hours or until oral intake is greater than 600 mL, whichever comes first. 184 (Continued from OR - Provider: Archana Santos R.N.)221 (Restarted - Provider: Archana Santos R.N.) PRN Medication Order 10/29/2024 10/30/2024 10/31/2024 acetaminophen [...] 171 (New Bag - Provider: Celi Amador RNataliaN.) BUPivacaine liposome (PF) 20 mL, BUPivacaine 30 [...] administration - ondansetron then haloperidol then granisetron) 1803 (Given - Provider: Celi Amador R.N.) melatonin [...] 110 (See Alternative - Provider: Nela Durham RNataliaN.) oxyCODONE IR tablet 5 mg (Roxicodone)(Linked Group 1) 5 mg, oral, Every 4 hours PRN, moderate pain or score 4-6 of 10, Starting on Wed10/30/24 at 1822, If both ketorolac and oxycodone ordered - give ketorolac first. If no response after 30 minutes give oxycodone. 1999 (Given - Provider: Archana Santos R.N.) 110 (Given - Provider: Tayo ZambranoN.) prochlorperazine injection 5 mg (Compazine) 5 mg, [...] documented as of this encounter Care Teams Community Service Aide Relationship Specialty Start Date End Date Elsewhere, Pcp PCP - General Internal Medicine 07/25/24 documented as of this encounter
--- OUTSIDE RECORDS SUMMARY | 2024-12-06 20:55 | XMS_ITS | Encounter Summary ---
Author Organization [facility] Address [address] [place] [address] Care Team Providers Care Matte Cutter Name Role Phone Elsewhere, Pcp Primary Care Provider Unavailabl e Reason for Referral * Outpatient (Routine) - Authorized Specialty Diagnoses / Procedures Referred By Safia garcia Referred To Contact Diagnoses Malignant Neoplasm Of Breast Upper Outer Quadrant Female Right (HCC) Procedures NM Woods Cross Node Injection Only Brie Durant M.D. 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 [address] [place] [address] Phone: tel: fax: Referral ID Status Reason Start Date Expiration Date Visits Re quested Visits Authorized [id number] 1 1 Encounter Details Date Type Department Care Team (Latest Contact Info) Description 10/30/2024 7:30 AM CDT - 10/30/2024 11:59 PM CDT Hospital Encounter Department of Radiology, [facility], in [place], [place] [address] [place] [address] Brie Durant M.D. 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 I have a [facility] place to live 10/30/2024 Comments No Sex and Gender Information Value Date Recorded Sex Assigned at Female 07/25/2024 9:49 AM CIRCUIT RECORDER Legal Sex Female 6:01 PM CIRCUIT RECORDER Gender Identity Female 07/25/2024 9:49 AM CIRCUIT RECORDER Sexual Orientation Straight 07/25/2024 9: 49 AM CIRCUIT RECORDER documented as of this encounter Medications at [...] 56 tablet 10/31/2024 3:20 PM CDT 11/02/2024 5 oxyCODONE (Roxicodone) 5 mg immediate release tabletIndications:Ac ely shoshone Pain Take 1 tablet (5 mg total) by mouth every 4 (four) hours as needed for pain Indication: Acute Pain. 10 tablet 10/31/2024 3:20 PM CDT 10/31/2024 5 documented as of this encounter Plan of Treatment Upcoming Encounters Date Type Department Care Team (Late st Contact Info) Description 12/07/2024 10:15 AM CDT Appointment Department of Radiation Oncology in [place], [place] [address] [place] [phone] Tim Navarro M.D., Ph.D. [address] [place] [phone] 12/07/2024 11:30 AM CDT Appointment Department of Radiation Oncology in [place], [place] [address] [place] [phone] Tim Navarro M.D., Ph.D. [address] [place] [phone] Christy Wade R.N. [address] [place] [phone] 12/07/2024 12:20 PM CDT Appointment Department of Radiology, [facility], in [place], [place] [address] [place] [phone] Meghna Soto M.B., B.Ch. [address] [place] [phone] 12/07/2024 2:40 PM CDT Office Visit Department of Oncology in [place], [place] [address] [place] [phone] Meghna Soto M.B., B.Ch. [address] [place] [phone] 12/08/2024 8:00 AM CDT Telemedicine Department of Oncology in [place], [place] [address] [place] [phone] Haim Mueller, KRISSY, C.N.P., D.N.P. [address] [place] [phone] Brooklyn Lombardi P.A.-C., M.S. [address] [place] [phone] 12/15/2024 10:00 AM CDT Virtual Visit Department of Cardiovascular Medicine in [place], [place] [address] [place] [phone] Soto Ta M.D., Ph.D. [address] [place] [phone] 02/05/2025 9:30 AM CDT Infusion Department of Infusion Therapy in [place], [place] [address] [place] [phone] Meghna Soto M.B., B.Ch. [address] [place] [phone] documented as of this encounter Procedures Procedure Name Priority Date/Time Associated Diagnosis Comments NM SENTINEL NODE INJECTION ONLY RAD - Routine (most inpatients and all outpatients) 10/30/2024 8:59 AM CDT Malignant Neoplasm Of Breast Upper Outer Quadrant Female Right (HCC) documented in this encounter Results * NM Woods Cross Node Injection Only (10/30/2024 8:59 AM CDT) [...] M.D. IMG NM PROCEDURES Final Res ult documented in this [...] MAR Action Action Date Dose Rate Site lidocaine-sodium bicarbonate (buffered) 0.9%-0.84% injection 0.5-2 mL 0.5-2 mL, infiltration, Once, On Wed10/30/24 at 0915, For 1 dose, Imaging Protocol Orders, Final lidocaine concentration is 0.9% (9 mg/mL) Given 10/30/2024 8:57 AM CDT 2 mL Left Breast lidocaine-sodium bicarbonate (buffered) 0.9%-0.84% injection 0.5-2 mL 0.5-2 mL, infiltration, Once, On Wed10/30/24 at 0915, For 1 dose, Imaging Protocol Orders, Final lidocaine concentration is 0.9% (9 mg/mL) Given 10/30/2024 8:57 AM CDT 2 mL Right Breast technetium Tc 99m Sulfur Colloid Filtered injection (Tc-99m Sulfur Colloid Filtered) 0.18-4.4 millicurie, infiltration, Once, On Wed10/30/24 at 0915, For 1 dose, Imaging Protocol Orders Given 10/30/2024 8:58 AM CDT 0.432 millicuries Left Breast technetium Tc 99m Sulfur Colloid Filtered injection (Tc-99m Sulfur Colloid Filtered) 0.18-4.4 millicurie, infiltration, Once, On Wed10/30/24 at 0915, For 1 dose, Imaging Protocol Orders Given 10/30/2024 8:57 AM CDT 0.413 millicuries Right Breast documented in this encounter Additional Health Concerns Assessment Noted Time PHQ-9 Depression Total Score: 3 10/28/19 25 9:43 AM CDT documented as of this encounter Care Teams Matte Cutter Relationship Specialty Start Date End Date Elsewhere, Pcp PCP - General Internal Medicine 07/25/24 documented as of this encounter
--- OUTSIDE RECORDS SUMMARY | 2024-12-06 20:55 | XMS_ITS | Encounter Summary ---
Author Organization [facility] Address [address] [place] [phone] Care Team Providers Care Director Video Name Role Phone Elsewhere, Pcp Primary Care Provider Unavailabl e Encounter Details Date Type Department Care Team (Late st Contact Info) Description 10/25/2024 Clinical Communication Division of Breast and Melanoma Surgical Oncology in [place], [place] [address] [place] [phone] Brie Durant M.D. [address] [place] [phone] Social History Tobacco Use Types Packs/Day Years Used Date Smoking Tobacco: Never Passive Smoke Exposure: Past Smokeless Tobacco: Never Alcohol Use Standard Drinks/Week Comments Not Currently 0 (1 standard drink = 0.6 oz pur e alcohol) [facility] Utilities Answer Date Recorded In the past 12 months has [employer], gas, oil, or water [employer] threatened to shut off services in your [...] your living situation today? I have a [facility] place to live 07/25/2024 Comments No Sex and Gender Information Value Date Recorded Sex Assigned at Female 07/25/2024 9:49 AM ANALYZER SALES Legal Sex Female 6:01 PM ANALYZER SAL[employer] Gender Identity Female 07/25/2024 9:49 AM ANALYZER SALES Sexual Orientation Straight 07/25/2024 9: 49 AM ANALYZER SALES documented as of this encounter Miscellaneous Notes * Telephone Encounter - Gail Monterroso RNataliaN. - 10/25/2024 8:52 AM CDT Contacted patient to update her regarding surgical plan. Informed patient that we will keep her overnight for observation following surgery due to her PFO diagnosis. We have also had a recommendationfrom Dr. Dumas in cardiology to start her on 2.5mg of Eliquis following surgery. Patient reports that she did take Eliquis in the fall of 2023 and experienced bruising and very heavy menstrual bleeding. She does not remember the dose but does remember her local provider recommending low dose Eliquis if she should need this medication. I will relay this message to Dr. Durant and the surgical team. Patient reports that she has reached out to Dr. Mcclendon and his team about proceeding with an aesthetic flat closure versus skin sparing mastectomy. Assured patient that our breast and plastic surgeonsare all very skilled and experienced with flat closure and will work to give her the best aesthetic outcome if she decides on this procedure. Patient will reach back out to me by October 27 to confirm the surgical plan. documented in this encounter Plan of Treatment Upcoming Encounters Date Type Department Care Team (Late st Contact Info) Description 12/07/2024 10:15 AM CDT Appointment Department of Radiation Oncology in [place], [place] [address] [place] [phone] Tim Navarro M.D., Ph.D. [address] [place] [phone] 12/07/2024 11:30 AM CDT Appointment Department of Radiation Oncology in [place], [place] [address] [place] [phone] Tim Navarro M.D., Ph.D. [address] [place] [phone] Christy Wade R.N. [address] [place] [phone] 12/07/2024 12:20 PM CDT Appointment Department of Radiology, [facility], in [place], [place] [address] [place] [phone] Meghna Soto M.B., B.Ch. [address] [place] [phone] 12/07/2024 2:40 PM CDT Office Visit Department of Oncology in [place], [place] [address] [place] [phone] Meghna Soto M.B., B.Ch. [address] [place] [phone] 12/08/2024 8:00 AM CDT Telemedicine Department of Oncology in [place], [place] [address] [place] [phone] Haim Mueller, KRISSY, C.N.P., D.N.P. [address] [place] [phone] Brooklyn Lombardi P.A.-C., M.S. [address] [place] [phone] 12/15/2024 10:00 AM CDT Virtual Visit Department of Cardiovascular Medicine in [place], [place] [address] [place] [phone] Soto Ta M.D., Ph.D. [address] [place] [phone] 02/05/2025 9:30 AM CDT Infusion Department of Infusion Therapy in [place], [place] [address] [place] [phone] Meghna Soto M.B., B.Ch. [address] [place] [phone] documented as of this encounter Visit Diagnoses Not on filedocumented in this encounter Care Teams Director Video Relationship Specialty Start Date End Date Elsewhere, Pcp PCP - General Internal Medicine 07/25/24 documented as of this encounter
--- OUTSIDE RECORDS SUMMARY | 2024-12-06 20:55 | XMS_ITS | Encounter Summary ---
Author Organization [facility] Address [address] [place] [phone] Care Team Providers Care Researcher Name Role Phone Elsewhere, Pcp Primary Care Provider Unavailabl e Reason for Referral * Outpatient (Routine) - Closed Specialty Diagnoses / Procedures Referred By Safia garcia Referred To Contact Plastic Surgery Yoon Hamilton APRN, C.N.P., D.N.P. [address] [place] [phone] Phone: tel: fax: [facility] Referral ID Status Reason Start Date Expiration Date Visits Re quested Visits Authorized [id number] Closed 11/13/2024 05/15/2026 1 1 Scheduling Instructions Yoon Johnson in approx 2 weeks Reason for Visit * Outpatient (Routine) - Closed Specialty Diagnoses / Procedures Referred By Contac t Referred To Contact Plastic Surgery Foster Mcclendon B.M., B.Ch., Ph.D. [address] [place] [phone] Phone: tel: fax: [facility] Referral ID Status Reason Start Date Expiration Date Visits Re quested Visits Authorized [id number] Closed 09/21/2024 03/23/2026 1 1 Encounter Details Date Type Department Care Team (Latest Contact Info) Description 11/13/2024 8:00 AM CDT Office Visit Division of Plastic Surgery in [place], [place] [address] [place] [phone] Yoon Hamilton APRN, C.N.P., D.N.P. [address] [place] [phone] Follow Up Examination Postoperative Visit (Primary Dx) Social History Tobacco Use Types Packs/Day Years Used Date Smoking Tobacco: Never Passive Smoke Exposure: Past Smokeless Tobacco: Never Alcohol Use Standard Drinks/Week Comments Not Currently 0 (1 standard drink = 0.6 oz pur e alcohol) [facility] Utilities Answer Date Recorded In the past 12 months has th e electric, gas, oil, or water [employer] threatened to shut off services in your [...] living situation today? I have a [facility] place to live 10/30/2024 Comments No Sex and Gender Information Value Date Recorded Sex Assigned at Female 07/25/2024 9:49 AM SUPERVISOR [employer] Legal Sex Female 6:01 PM SUPERVISOR [employer] Gender Identity Female 07/25/2024 9:49 AM SUPERVISOR [employer] Sexual Orientation Straight 07/25/2024 9: 49 AM SUPER[employer] documented as of this encounter Progress Notes * Yoon Hamilton, KRISSY, C.N.P., D.N.P. - 11/13/2024 8:00 AM CDT SUBJECTIVE CHIEF COMPLAINT / REASON FOR VISIT 1. Maryam underwent bilateral simple mastectomy with Dr. Durant followed by flat closure with Dr. Mcclendon on 10/30/2024. 2. Routine Post Op visit - 2 weeks HISTORY OF PRESENT ILLNESS Mayram is a very pleasant 54 y.o. female who presents today for a routine postoperative visit. She has a history of right breast cancer and underwent bilateral simple mastectomy with Dr. Durant followedby flat closure with Dr. Mcclendon on 10/30/2024. She reports that recovery has been going well overall. She denies pain currently and is no longer taking any analgesics for surgical site discomfort. She does note some occasional soreness. She denies signs/symptoms of infection, specifically fevers, chills, malaise, strange drainage fromsurgical site, swelling or bulging of surgical site. She reports she believes she is following all activity restrictions and is wearing compression garments 08/03 as instructed. Her drains have been removed. Overall, she is doing well since surgery and has no major concerns. REVIEW OF SYSTEMS Pertinent items noted in HPI. OBJECTIVE PHYSICAL EXAMINATION General: Patient is alert and oriented x 3. She does not appear to be in acute distress. Very pleasant and accompanied by her . Chest: Surgical tape intact. No rashes around surgical tape. Breast incisions appear clean, dry, intact and no erythema or drainage noted. No obvious signs of fluid accumulation or infection noted bilaterally. Drains/Drain sites: All drain/s sites are free of signs of infection and are healing ASSESSMENT / PLAN 1. Maryam underwent bilateral simple mastectomy with Dr. Durant followed by flat closure with Dr. Mcclendon on 10/30/2024. 2. Routine Post Op visit - 2 weeks It was a pleasure seeing Maryam today in the clinic. She is recovering nicely after her recent surgery. No concerns on exam today. She was instructed to continue to wear her compression garment at all times except when showering for 4 weeks after surgery. Activity and weight restrictions also discussed with the patient in detail. She understands the more active she is, the more fluid accumulates in the operated sites, increasing her risk for fluid collections and infection. She is to remain on light duty, which includes not lifting more than 10 lb, anything strenuous or vigorous, and any repetitive arm movements (includinghousework, typing, knitting, etc.) until 4 weeks postop. She may shower, however, she should not soak in tub/water until at least 6-8 weeks from surgery andall incisions have healed, and are without any scabbing or otherwise compromise. We will plan to remove her surgical tape at her next visit. If it begins to peel up before then, she may gently trim it with a scissors. We will discuss scar care at her next visit. Signs/symptoms of an infection were reviewed with the patient and she was instructed to call us immediately if any of these occur. Patient will return to clinic in approximately 2 weeks. Patient has all appropriate phone numbers to call in case she has questions or concerns. Photographs obtained with patient's permission. All questions were asked and answered per patient report. documented in this encounter Plan of Treatment Upcoming Encounters Date Type Department Care Team (Late st Contact Info) Description 12/07/2024 10:15 AM CDT Appointment Department of Radiation Oncology in [place], [place] [address] [place] [phone] Tim Navarro M.D., Ph.D. [address] [place] [phone] 12/07/2024 11:30 AM CDT Appointment Department of Radiation Oncology in [place], [place] [address] [place] [phone] Tim Navarro M.D., Ph.D. [address] [place] [phone] Christy Wade R.N. [address] [place] [phone] 12/07/2024 12:20 PM CDT Appointment Department of Radiology, [facility], in [place], [place] [address] [place] [phone] Meghna Soto M.B., B.Ch. [address] [place] [phone] 12/07/2024 2:40 PM CDT Office Visit Department of Oncology in [place], [place] [address] [place] [phone] Meghna Soto M.B., B.Ch. [address] [place] [phone] 12/08/2024 8:00 AM CDT Telemedicine Department of Oncology in [place], [place] [address] [place] [phone] Haim Muleler APRN, C.N.P., D.N.P. [address] [place] [phone] Brooklyn Lombardi P.A.-Sajan., M.S. [address] [place] [phone] 12/15/2024 10:00 AM CDT Virtual Visit Department of Cardiovascular Medicine in [place] [phone] [place] [phone] Soto Ta M.D., Ph.D. [address] [place] [phone] 02/05/2025 9:30 AM CDT Infusion Department of Infusion Therapy in [place], [place] [address] [place] [phone] Meghna Soto M.B., B.Ch. 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
--- OUTSIDE RECORDS SUMMARY | 2024-12-06 20:55 | XMS_ITS | Encounter Summary ---
Author Organization [facility] Address [address] [place] [id number] Care Team Providers Care Vacuum Frame Operator Name Role Phone Elsewhere, Pcp Primary Care Provider Unavailabl e Reason for Visit * Reason Comments Follow-up Encounter Details Date Type Department Care Team (Late st Contact Info) Description 12/01/2024 Documentation Division of Breast and Melanoma Surgical Oncology in [place], [place] [address] [place] [phone] Brie Durant M.D. [address] [place] [phone] Follow-up Social History Tobacco Use Types Packs/Day Years Used Date Smoking Tobacco: Never Passive Smoke Exposure: Past Smokeless Tobacco: Never Alcohol Use Standard Drinks/Week Comments Not Currently 0 (1 standard drink = 0.6 oz pur e alcohol) [facility] Utilities Answer Date Recorded In the past 12 months has [employer], gas, oil, or water [employer] threatened to shut off services in your [...] Date Recorded Employment status Working with temporary [employer] 07/25/2024 Housing Stability Answer Date Recorded What is your living situation today? I have a [facility] place to live 10/30/2024 Comments No Sex and Gender Information Value Date Recorded Sex Assigned at Female 07/25/2024 9:49 AM EMISSIONS REPAIR TECHNICIAN Legal Sex Female 6:01 PM EMISSIONS REPAIR TECHNICIAN Gender Identity Female 07/25/2024 9:49 AM EMISSIONS REPAIR TECHNICIAN Sexual Orientation Straight 07/25/2024 9: 49 AM EMISSIONS REPAIR TECHNICIAN documented as of this encounter Progress Notes * Haim Butler, R.N. - 12/01/2024 11:37 AM CDT 30 Day Breast Surgery Follow-Up: Source of information: Chart review and phone call to patient Did patient have any complication(s)?: No Information Discussed Standard postoperative follow-up phone call. Surgical service of . Status post bilateral simple mastectomy, right axillary sentinel lymph node biopsy, and flat closure on 10/30/2024. Patient was contacted to follow-up on postoperative status >30 days after surgery. Patient states overall she has healed well. She denies any signs or symptoms of infection or other postoperative complications at this time. Encouraged Maryam Ayers to call Dr. Durant or her surgical team with any future surgical questions or concerns. Patient denies any at this time and is appreciative of the phone call. The following potential postoperative complications were discussed: surgical site infection, wound dehiscence, hematoma, skin necrosis, seroma, and other potential postoperative issues including respiratory complications, urinary tract infection, and DVT. PLAN Disposition/Recommendation: self-care is appropriate at this time, patient encouraged to call back with questions Information/Education: patient/caller able to teach back Caller agreeable to plan of care: yes The following references were used: nursing clinical judgement documented in this encounter Plan of Treatment Upcoming Encounters Date Type Department Care Team (Late st Contact Info) Description 12/07/2024 10:15 AM CDT Appointment Department of Radiation Oncology in [address] [phone] Tim Navarro M.D., Ph.D. [address] [place] [phone] 12/07/2024 11:30 AM CDT Appointment Department of Radiation Oncology in [address] [phone] Tim Navarro M.D., Ph.D. [address] [place] [phone] Christy Wade R.N. [address] [place] [phone] 12/07/2024 12:20 PM CDT Appointment Department of Radiology, [facility], in [address] [phone] Meghna Soto M.B., B.Ch. [address] [place] [phone] 12/07/2024 2:40 PM CDT Office Visit Department of Oncology in [place], [place] [address] [place] [phone] Meghna Soto M.B., B.Ch. [address] [place] [phone] 12/08/2024 8:00 AM CDT Telemedicine Department of Oncology in [place], [place] [address] [place] [phone] Haim Mueller, KRISSY, C.N.P., D.N.P. [address] [place] [phone] Brooklyn Lombardi P.A.-C., M.S. [address] [place] [phone] 12/15/2024 10:00 AM CDT Virtual Visit Department of Cardiovascular Medicine in [place], [place] [address] [place] [phone] Soto Ta M.D., Ph.D. [address] [place] [phone] 02/05/2025 9:30 AM CDT Infusion Department of Infusion Therapy in [place], [place] [address] [place] [phone] Meghna Soto M.B., B.Ch. [address] [place] [phone] documented as of this encounter Visit Diagnoses Not on filedocumented in this encounter Additional Health Concerns Assessment Noted Time PHQ-9 Depression Total Score: 4 11/25/19 25 3:38 PM CDT documented as of this encounter Care Teams Vacuum Frame Operator Relationship Specialty Start Date End Date Elsewhere, Pcp PCP - General Internal Medicine 07/25/24 documented as of this encounter
--- OUTSIDE RECORDS SUMMARY | 2024-12-06 20:55 | XMS_ITS | Encounter Summary ---
Author Organization [facility] Address [address] [place] [address] Care Team Providers Care Farmer General Name Role Phone Elsewhere, Pcp Primary Care Provider Unavailabl e Reason for Visit * Outpatient (Routine) - Closed Specialty Diagnoses / Procedures Referred By Safia garcia Referred To Contact General Surgery Brie Durant M.D. 200 [place] [address] Phone: tel: fax: [facility] Referral ID Status Reason Start Date Expiration Date Visits Re quested Visits Authorized [id number] Closed 09/19/2024 03/21/2026 1 1 Encounter Details Date Type Department Care Team (Latest Contact Info) Description 11/08/2024 1:00 PM CDT Office Visit Division of Breast and Melanoma Surgical Oncology in [place], [place] [address] [place] [phone] Geno Stevenson, KRISSY, C.N.P., D.N.P. [address] [place] [phone] Follow Up Examination Postoperative Visit (Primary Dx); Malignant Neoplasm Of Breast Upper Outer Quadrant Female Right (HCC) Social History Tobacco Use Types Packs/Day Years Used Date Smoking Tobacco: Never Passive Smoke Exposure: Past Smokeless Tobacco: Never Alcohol Use Standard Drinks/Week Comments Not Currently 0 (1 standard drink = 0.6 oz pur e alcohol) [facility] Utilities Answer Date Recorded [...] Date Recorded Employment status Working with temporary 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 I have a [facility] place to live 10/30/2024 Comments No Sex and Gender Information Value Date Recorded Sex Assigned at Female 07/25/2024 9:49 AM RETAIL DEPARTMENT SUPERVISOR Legal Sex Female 6:01 PM RETAIL DEPARTMENT SUPERVISOR Gender Identity Female 07/25/2024 9:49 AM RETAIL DEPARTMENT SUPERVISOR Sexual Orientation Straight 07/25/2024 9: 49 AM RETAIL DEPARTMENT SUPERVISOR documented as of this encounter Progress Notes * Geno Stevenson, FOUNDRY FINISHER, C.N.P., D.N.P. - 11/08/2024 1:00 PM CDT SUBJECTIVE CHIEF COMPLAINT/REASON FOR VISIT Breast Carcinoma Post Operative Visit Source of consultation: Brie Durant M.D. HISTORY OF PRESENT ILLNESS Maryam Ayers is a 54 y.o. female seen in postoperative follow-up. The operation performed was bilateral mastectomy (Dr. Mcclendon assist with flat closure) with right sentinel lymph node biopsy. Final histology showed: Laterality: right Size: 0.9 cm Histology: Invasive lobular carcinoma Grade: 2 Closest final margin (mm): 5-9.9 Lymph nodes: 1/4 sentinel lymph nodes positive for metastasis. Maryam reports healing well after surgery. She reports some intermittent sternal pain and significantpain with drain emptying and stripping. She would use oxycodone at night prior to drain care, and that helped slightly. She otherwise has not needed any pain medication recently. She denies fevers or signs of infection. The patient has been wearing a compression bra. She has been abiding by her activity and lifting restrictions. She has resumed her Eliquis. Her drain log book was reviewed today. Drain outputs (in cc) for the past two days are as follows: left chest wall: 11, 13 right chest wall: 8.5, 14 OBJECTIVE PHYSICAL EXAM Breast: There are total mastectomy incisions bilaterally and both incisions are covered with sylke tape. Incisions are clean, dry, intact, and well approximated. No erythema, increased skin warmth, drainage from the incisions, or odor noted. No obvious signs of hematoma, seroma, cellulitis, or necrosis. There is prominent scar tissue and firmness felt superior to the incisions bilaterally. Healing ecchymosis present, mostly on the right. Drains: Covered with Biopatches and Tegaderm. No signs of infection at the sites. Scant serosanguineous drainage in the bulbs bilaterally. Both drains were removed with assistance from Erinn Graham LPN. Sites covered with bacitracin and Primapore bandages bilaterally. ASSESSMENT / PLAN #1 Follow Up Examination Postoperative Visit #2 Malignant Neoplasm Of Breast Upper Outer Quadrant Female Right (HCC) Staging: Right breast carcinoma, [id number] Basic: right Multidisciplinary appointments - the patient will be meeting with medical oncology, radiation oncology and plastics. Maryam is healing well. We reviewed the final surgical pathology report from her recent surgery with Dr. Durant and after doing so she had no further questions. The patient is aware that activity guidelines, lifting restrictions, and use of a compression bra are advised by her plastic surgery team. She will need to remain on prophylactic antibiotics as long as she has drains in place. We discussed pain management. She may take Tylenol on a scheduled basis every 6 hours or as needed for surgical site discomfort. She could also alternate Tylenol with ibuprofen every 6 hours or as needed as long as she has no contraindications to taking ibuprofen. I discussed that the Sylke tape will stay in place for 4 weeks postoperatively. About 6 weeks postop, she could apply a moisturizer or scar-minimizing agent of her choice (gentle lotion, cocoa butter or vitamin E) to her incisions, and she can massage along her incisions to helpbreak down scar tissue formation and postoperative changes. The right mastectomy and left mastectomy drains were removed today. She understands that she may remove the nonocclusive dressing and shower tomorrow. She understands she should continue to wear her supportive/compressive garment for an additional week following drain removal, but the longer the better. She understands the importance of wearing a supportive bra to help decrease pain, swelling, and inflammation. She is aware that applying compression to the chest wall will help decrease the riskfor developing a seroma. Signs and symptoms of seroma formation were reviewed today. Maryam was provided with prescriptions for obtaining breast therapeutic products. She can be fit for mastectomy bras and prostheses when she is 6 weeks out from surgery. Maryam should monitor her incisions, drain sites and operative sites for signs and symptoms concerning for infection or fluid collection. If she would note erythema, increased skin warmth, drainage from her incisions, or odor, a rapid onset of swelling or firmness, note the presence of a potential fluid collection, develop a temperature over 100.4 degrees Fahrenheit, or note any other concerning findings, then she needs to contact her surgical teams. We discussed the recommended follow-up and surveillance and she expressed understanding. All of herquestions were answered to her stated satisfaction. She will contact us if she has any questions orconcerns. documented in this encounter Plan of Treatment Upcoming Encounters Date Type Department Care Team (Late st Contact Info) Description 12/07/2024 10:15 AM CDT Appointment Department of Radiation Oncology in [place], [place] [address] [place] [phone] Tim Navarro M.D., Ph.D. [address] [place] [phone] 12/07/2024 11:30 AM CDT Appointment Department of Radiation Oncology in [place], [place] [address] [place] [phone] Tim Navarro M.D., Ph.D. [address] [place] [phone] hCristy Wade R.N. [address] [place] [phone] 12/07/2024 12:20 PM CDT Appointment Department of Radiology, [facility], in [place], [place] [address] [place] [phone] Meghna Soto M.B., B.Ch. [address] [place] [phone] 12/07/2024 2:40 PM CDT Office Visit Department of Oncology in [place], [place] [address] [place] [phone] Meghna Soto M.B., B.Ch. [address] [place] [phone] 12/08/2024 8:00 AM CDT Telemedicine Department of Oncology in [place], [place] [address] [place] [phone] Haim Mueller APRN, C.N.P., D.N.P. [address] [place] [phone] Brooklyn Lombardi P.A.-C., M.S. [address] [place] [phone] 12/15/2024 10:00 AM CDT Virtual Visit Department of Cardiovascular Medicine in [place], [place] [address] [place] [phone] Soto Ta M.D., Ph.D. [address] [place] [phone] 02/05/2025 9:30 AM CDT Infusion Department of Infusion Therapy in [place], [place] [address] [place] [phone] Meghna Soto M.B., B.Ch. [address] [place] [phone] documented as of this encounter Visit Diagnoses [...] documented as of this encounter Care Teams Farmer General Relationship Specialty Start Date End Date Elsewhere, Pcp PCP - General Internal Medicine 07/25/24 documented as of this encounter
--- OUTSIDE RECORDS SUMMARY | 2024-12-06 20:55 | XMS_ITS | Encounter Summary ---
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 [address] Phone: tel: fax: Referral ID Status Reason Start Date Expiration Date Visits Re quested Visits Authorized [id number] 1 1 Encounter Details Date Type Department Care Team ([facility] Contact Info) Description 10/30/2024 10:52 AM CDT Anesthesia Event [facility] OR [address] [place] [address] Loraine Damon M.D. [address] [place] [address] Soto Joshi M.D. [address] [place] [phone] Anesthesia Record Procedure Summary Procedure Name Responsible Anesthesiologist Anesthesia Start Time Anesthesia Stop Time BILATERAL SIMPLE MASTECTOMY. (Bilateral) Loraine Damon M.D. 10/30/24 1052 10/30/24 1625 Events Date Time Event Comment 10/30/2024 1027 1052 An Start Machine/Equipme nt Checked Infection Precautions Followed Procedure/Site Verified NPO Status Verified Supine Standard ASA Monitors Applied 1055 An Induction 1056 An Intubation 1100 Turnover to Proceduralist 1149 Anes CS Handoff I, Brady cleveland APRN, FINANCIAL SALES ASSISTANT, attest that I have reconciled the controlled substances and that I have reviewed all the significant information with the next anesthesia provider assuming care of this patient. 1153 Proc Start 1601 Proc Fin 1613 Turnover to ANE Staff 1613 Airway Removal Criteria Met 1613 Extubation/Airway Removed 1613 an stop data 1625 An End I completed my handoff to the receiving staff during which we 1. Identified the patient 2. Identified the responsible provider 3. Reviewed the pertinent medical history 4. Discussed the surgical course 5. Reviewed intra-op anesthesia management and issues during anesthesia 6. Set expectations for post-procedure period 7. Allowed opportunity for questions and acknowledgement of understanding. Meds Name Total fentanyl injection 50 mcg/mL 100 mcg lidocaine 2% (mg) injection 80 mg rocuronium 10 mg/mL injection 50 mg ondansetron 4 mg/2 mL injection 4 mg sugammadex 100 mg/mL injection 200 mg propofol 10 mg/mL infusion 3,791.83 mg propofol 10 mg/mL injection 150 mg heparin injection 5,000 Units/mL 5,000 U nits dexAMETHasone (Decadron) injection 4 mg/ mL 8 mg HYDROmorphone (Dilaudid) PF injection 2 mg/mL 1.6 mg ceFAZolin injection 2,000 mg (Ancef) 4 g ketamine 10 mg/mL injection 50 mg Lactated Ringers Free Drip 1,400 mL * Agents No agents on file. * Blood No blood administrations on file. Lines, Drains, and Airways Type Details Placement Removal Wound 10/30/24; N; Incisio n; Breast; Left 10/30/24 0000 by Harshad Alegre R.N. Wound 10/30/24; N; Incisio n; Breast; Right 10/30/24 0000 by Harshad Alegre R.N. Closed/Suction Drain 10/30/24; Lateral, Left; Chest; 15 Fr.; Criteria for drain removal met 10/30/24 0000 by Jai Canseco R.N. 11/08/24 1256 by Erinn Graham L.PConchis Closed/Suction Drain 10/30/24; Lateral; RUQ; Bulb; Criteria for drain removal met 10/30/24 0000 by Jai Canseco R.N. 11/08/24 1256 by Erinn Graham LNataliaPNataliaNNatalia Peripheral IV Placement Date: 10/14 03/09; Placement Time: 08; Catheter Size: 20 G; Orientation: Distal, Left, Lower, Posterior; Location: Arm; Site Prep: Chlorhexidine (Preferred); Technique: Anatomical landmarks; Insertion Attempts: 1; Removal Date: 10/31/24; Removal Time: 1500; Removal Reason: Patient discharged 10/30/24 0817 by Aleida Benitez 10/31/24 1500 by Nela Druham RConchis ETT Placement Date: 10/14 03/09; Placement Time: 1056 (created via procedure documentation); Mask Ventilation: Oral/Nasal airway needed; Technique: Video laryngoscopy; Type: Standard ETT; Single Lumen Tube Size: 7 mm; Cuffed: Yes; Location: Oral; Grade View: Grade 1; Insertion Attempts: 1; Placement Verification: Bilateral breath sounds, Positive ETCO2, Symmetrical chest wall movement; Removal Date: 10/30/24; Removal Time: 1613 10/30/24 1056 by Brady Bess APRN, CRNA 10/30/24 161 by Brady Bess APRN, CRNA documented in this encounter Social History Tobacco Use Types Packs/Day Years Used Date Smoking Tobacco: Never Passive Smoke Exposure: Past Smokeless Tobacco: Never Alcohol Use Standard Drinks/Week Comments Not Currently 0 (1 standard drink = 0.6 oz pur e alcohol) [facility] Utilities Answer Date Recorded In the past 12 months has e electric, gas, oil, or water [employer] threatened to shut off services in your [...] Date Recorded Employment status Working with temporary 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 I have a [facility] place to live 10/30/2024 Comments No Sex and Gender Information Value Date Recorded Sex Assigned at Female 07/25/2024 9:49 AM INSULATION APPLICATOR Legal Sex Female 6:01 PM INSULATION APPLICATOR Gender Identity Female 07/25/2024 9:49 AM INSULATION APPLICATOR Sexual Orientation Straight 07/25/2024 9: 49 AM INSULATION APPLICATOR documented as of this encounter OR Notes * Anesthesia Postprocedure Evaluation - Loraine Damon M.D. - 11/01/2024 12:26 PM CDT Patient: Maryam Ayers Procedure Summary Date: 10/30/24 Room / Location: [place] [address] / [facility] in [place], [place] Anesthesia Start: 1052 Anesthesia Stop: 1625 Procedures: BILATERAL SIMPLE MASTECTOMY. 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 Responsible Provider: Loraine Damon M.D. Anesthesia Type: general ASA Status: 3 Anesthesia Type: general Last vitals Vitals Value Taken Time BP 123/78 10/30/24 1800 Temp 37 ??C 10/30/24 1756 Pulse 69 10/30/24 1807 Resp 14 10/30/24 1807 SpO2 96 % 10/30/24 1807 Vitals shown include unfiled device data. Please reference Vitals flowsheet for most recent vital signs. Anesthesia Post Evaluation Patient Disposition: dismissal Cardiovascular status: hemodynamics (HR & BP) acceptable Respiratory status: patent airway with spontaneous effort Temperature: normothermic Oxygen requirements: room air Level of consciousness: awake Pain score: pain adequately controlled and/or at baseline Post Op nausea/vomiting: none Hydration status: euvolemic Notable Events No notable events documented. * Anesthesia Procedure Notes - Brady Bess APRN, CRNA - 10/30/2024 11:07 AM CDTAssociated Order(s): Airway Airway Date/Time: 10/30/2024 10:56 AM Performed by: Brady Bess APRN, CRNA Authorized by: Loraine Damon M.D. Patient location during procedure: OR / Procedure Area PROCEDURE DETAILS: Mask difficulty assessment: oral/nasal airway needed Final airway type: video laryngoscope Laryngeal Manipulation: no Final best view of glottic structures - Cormack/Lehane Score: grade 1 ETT location: oral VL device: glide scope [place] scope blade size: 3 Tube size: 7 [...] Procedure outcome: successful Notable Events: no complications * Anesthesia Preprocedure Evaluation - Soto Joshi M.D. - 10/30/2024 8:13 AM CDT Preprocedure Anesthesia & H&P Assessment Procedure Summary Date/Time: 10/30/24904 Procedures: BILATERAL SIMPLE MASTECTOMY. (Bilateral) RIGHT AXILLARY SENTINEL LYMPH NODE BIOPSY, POSSIBLE LEFT AXILLARY SENTINEL LYMPH NODE BIOPSY. POSSIBLE RIGHT AXILLARY LYMPH NODE DISSECTION, POSSIBLE LEFT AXILLARY LYMPH NODE DISSECTION. FLAT CLOSURE, ASSISTANCE WITH CLOSURE, PROCEED INDICATED. 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 Location: [place] [address] / [facility] in [place], [place] Providers: Brie Durant M.D.; Foster Mcclendon B.M., B.Ch., Ph.D. Pertinent components of the patient's history including current problem list, medical history, surgical history, family history, social history, medications and allergies were reviewed. Present illness and pre-op diagnosis were confirmed. The planned surgery / procedure was verified with the patient / legal guardian. The patient's general health condition remains unchanged RELEVANT COMORBID CONDITIONS CV (+) Hypertension Essential Primary (+) Patent Foramen Ovale (HCC) ONC (+) Malignant Neoplasm Of Breast Upper Outer Quadrant Female Right (HCC) Respiratory (+) Dyspnea On Exertion OBJECTIVE PHYSICAL EXAMINATION Airway (HEENT) Mallampati: III TM Distance: >3 FB Neck ROM: Full Mouth Opening: >3 cm Cardiovascular Rhythm: Regular Rate: Normal Cardiovascular Assessment: cardiovascular normal Functional Capacity: >4 METS Pulmonary Pulmonary Assessment: Non labored General / Constitutional Constitutional Assessment: Normal General State of Health:: healthy appearing and calm ASSESSMENT / PLAN ANESTHESIA PLAN ASA: 3 Anesthesia Plan: general Patient seen and allergies reviewed, anesthesia plan and risks discussed directly with patient /legal guardian or through an core paster. Risks/Benefits/Alternatives of Blood transfusion discussed with patient / legal guardian, includingan opportunity to ask questions and/or decline some or all transfusion therapies. The patient / legal guardian consented to the use of all blood products, as deemed medically necessary Approval to Proceed: approved for anesthesia documented in this encounter Plan of Treatment Upcoming Encounters Date Type Department Care Team (Late st Contact Info) Description 12/07/2024 10:15 AM CDT Appointment Department of Radiation Oncology in [address] [phone] Tim Navarro M.D., Ph.D. [address] [place] [phone] 12/07/2024 11:30 AM CDT Appointment Department of Radiation Oncology in [address] [phone] Tim Navarro M.D., Ph.D. [address] [place] [phone] Chrisyt Wade R.N. [address] [place] [phone] 12/07/2024 12:20 PM CDT Appointment Department of Radiology, [facility], in [address] [phone] Meghna Soto M.B., B.Ch. [address] [place] [phone] 12/07/2024 2:40 PM CDT Office Visit Department of Oncology in [place], [place] [address] [place] [phone] Mgehna Soto M.B., B.Ch. [address] [place] [phone] 12/08/2024 8:00 AM CDT Telemedicine Department of Oncology in [place], [place] [address] [place] [phone] Haim Mueller APRN, C.N.P., D.N.P. [address] [place] [phone] Brookyln Lombardi P.A.-C., M.S. [address] [place] [phone] 12/15/2024 10:00 AM CDT Virtual Visit Department of Cardiovascular Medicine in [place], [place] [address] [place] [phone] Soto Ta M.D., Ph.D. [address] [place] [phone] 02/05/2025 9:30 AM CDT Infusion Department of Infusion Therapy in [place], [place] [address] [place] [phone] Meghna Soto M.B., B.Ch. [address] [place] [phone] documented as of this encounter Procedures Procedure Name Priority Date/Time Associated Diagnosis Comments LDA ANE ENDOTRACHEAL AIRWAY Routine 10/30/2024 10:56 AM CDT documented in this encounter Results * LDA ANE ENDOTRACHEAL AIRWAY (10/30/2024 10:56 AM CDT) Narrative Brady Bess APRN, FINANCIAL SALES ASSISTANT - 10/30/2024 10:56 AM CDT Brady Bess [...] ETT location: oral VL device: glide scope [place] scope blade size: 3 Tube size: 7 [...] Procedure outcome: successful Notable Events: no complications Loraine Damon M.D. ANESTHESIA ORDERABLES Final Re sult documented in this encounter Visit Diagnoses Not on filedocumented in this encounter Administered Medications Inactive Administered Medications - up to 3 most recent administrations Medication Order MAR Action Action Date Dose Rate Site ceFAZolin injection 2,000 mg (Ancef) 2,000 mg (rounded from 2,070 mg = [...] indication and drug clearance factors., Indications: Prophylaxis, surgicalIndications:Prophylaxis, surgical Given 10/30/2024 2:32 PM CDT 2 g Given 10/30/2024 11:32 AM CDT 2 g dexAMETHasone injection (Decadron) intravenous, As needed, Starting on Wed10/30/24 at 1114, Anesthesia Intra-op Given 10/30/2024 11:14 AM CDT 8 mg fentaNYL injection (Sublimaze) intravenous, As needed, Starting on Wed10/30/24 at 1055, Anesthesia Intra-op Given 10/30/2024 10:55 AM CDT 100 mc g heparin (porcine) injection subcutaneous, As needed, Starting on Wed10/30/24 at 1112, Anesthesia Intra-op Given 10/30/2024 11:12 AM CDT 5,000 Units HYDROmorphone (PF) injection (Dilaudid) intravenous, As needed, Starting on Wed10/30/24 at 1109, Anesthesia Intra-op Given 10/30/2024 1:47 PM CDT 0.6 mg Given 10/30/2024 12:05 PM CDT 0.6 mg Given 10/30/2024 11:09 AM CDT 0.4 mg ketamine injection (Ketalar) intravenous, As needed, Starting on Wed10/30/24 at 1147, Anesthesia Intra-op Given 10/30/2024 11:47 AM CDT 50 mg Lactated Ringer's intravenous, Continuous Infusion: Per Instructions PRN, Starting on Wed10/30/24 at 1055, Anesthesia Intra-op New Bag 10/30/2024 3:04 PM CDT New Bag 10/30/2024 10:55 AM CDT lidocaine (PF) (cardiac) injection intravenous, As needed, Starting on Wed10/30/24 at 1055, Anesthesia Intra-op Given 10/30/2024 10:55 AM CDT 80 mg ondansetron (PF) injection (Zofran) intravenous, As needed, Starting on Wed10/30/24 at 1547, Anesthesia Intra-op Given 10/30/2024 3:47 PM CDT 4 mg propofol 10 mg/mL infusion (Diprivan) intravenous, Continuous Infusion: Per Instructions PRN, Starting on Wed10/30/24 at 1055, Anesthesia Intra-op Rate/Dose Change 10/30/2024 3:30 PM CDT 110 mcg/kg/min 54.648 mL/hr Rate/Dose Change 10/30/2024 3:01 PM CDT 130 mcg/kg/min 64. 584 mL/hr Rate/Dose Change 10/30/2024 1:59 PM CDT 150 mcg/kg/min 74. 52 mL/hr propofoL injection (Diprivan) intravenous, As needed, Starting on Wed10/30/24 at 1055, Anesthesia Intra-op Given 10/30/2024 10:55 AM CDT 150 mg rocuronium injection (Zemuron) intravenous, As needed, Starting on Wed10/30/24 at 1055, Anesthesia Intra-op Given 10/30/2024 10:55 AM CDT 50 mg sugammadex injection (Bridion) intravenous, As needed, Starting on Wed10/30/24 at 1253, Anesthesia Intra-op Given 10/30/2024 12:53 PM CDT 200 mg documented in this encounter Additional Health Concerns Assessment Noted Time PHQ-9 Depression Total Score: 3 10/28/19 9:43 AM CDT documented as of this encounter Care Teams Speech/Language Therapist Relationship Specialty Start Date End Date Elsewhere, Pcp PCP - General Internal Medicine 07/25/24 documented as of this encounter
--- OUTSIDE RECORDS SUMMARY | 2024-12-06 20:55 | XMS_ITS | Encounter Summary ---
Author Organization [facility] Address [address] [place] [address] Care Team Providers Care Skein Yarn Dyer Helper Name Role Phone Elsewhere, Pcp Primary Care Provider Unavailabl e Encounter Details Date Type Department Care Team (Late st Contact Info) Description 11/27/2024 Orders Only Department of Oncology in [place], [place] [address] [place] [phone] Meghna Soto M.B., B.Ch. [address] [place] [phone] Social History Tobacco Use Types Packs/Day Years Used Date Smoking Tobacco: Never Passive Smoke Exposure: Past Smokeless Tobacco: Never Alcohol Use Standard Drinks/Week Comments Not Currently 0 (1 standard drink = 0.6 oz pur e alcohol) [facility] Utilities Answer Date Recorded In the past 12 months has e [employer], gas, oil, or water [employer] threatened to shut off services in your [...] Date Recorded Employment status Working with temporary [employer] 07/25/2024 Housing Stability Answer Date Recorded What is your living situation today? I have a [facility] place to live 10/30/2024 Comments No Sex and Gender Information Value Date Recorded Sex Assigned at Female 07/25/2024 9:49 AM PRESS HELPER Legal Sex Female 6:01 PM PRESS HELPER Gender Identity Female 07/25/2024 9:49 AM PRESS HELPER Sexual Orientation Straight 07/25/2024 9: 49 AM PRESS HELPER documented as of this encounter Plan of Treatment Upcoming Encounters Date Type Department Care Team (Late st Contact Info) Description 12/07/2024 10:15 AM CDT Appointment Department of Radiation Oncology in [place], [place] [address] [place] [phone] Tim Navarro M.D., Ph.D. [address] [place] [phone] 12/07/2024 11:30 AM CDT Appointment Department of Radiation Oncology in [place], [place] [address] [place] [phone] Tim Navarro M.D., Ph.D. [address] [place] [phone] Christy aWde R.N. [address] [place] [phone] 12/07/2024 12:20 PM CDT Appointment Department of Radiology, [facility], in [place], [place] [address] [place] [phone] Meghna Soto M.B., B.Ch. [address] [place] [phone] 12/07/2024 2:40 PM CDT Office Visit Department of Oncology in [place], [place] [address] [place] [phone] Meghna Soto M.B., B.Ch. [address] [place] [phone] 12/08/2024 8:00 AM CDT Telemedicine Department of Oncology in [place], [place] [address] [place] [phone] Haim Mueller, KRISSY, C.N.P., D.N.P. [address] [place] [phone] Brooklyn Lombardi, PLety.-C., M.S. [address] [place] [phone] 12/15/2024 10:00 AM CDT Virtual Visit Department of Cardiovascular Medicine in [place], [place] [address] [place] [phone] Soto Ta M.D., Ph.D. [address] [place] [phone] 02/05/2025 9:30 AM CDT Infusion Department of Infusion Therapy in [place], [place] [address] [place] [phone] Meghna Soto M.B., B.Ch. [address] [place] [phone] documented as of this encounter Visit Diagnoses Not on filedocumented in this encounter Additional Health Concerns Assessment Noted Time PHQ-9 Depression Total Score: 4 11/25/19 25 3:38 PM CDT documented as of this encounter Care Teams Skein Yarn Dyer Helper Relationship Specialty Start Date End Date Elsewhere, Pcp PCP - General Internal Medicine 07/25/24 documented as of this encounter
--- OUTSIDE RECORDS SUMMARY | 2024-12-06 20:56 | XMS_ITS | Encounter Summary ---
Author Organization [facility] Address [address] [place] [phone] Care Team Providers Care Rn Critical Care Name Role Phone Elsewhere, Pcp Primary Care Provider Unavailabl e Reason for Visit * MRI/CAT/PET Scan (Routine) - Closed Specialty Diagnoses / Procedures Referred By Safia garcia Referred To Contact Radiology Diagnoses Malignant Neoplasm Of Breast Upper Outer Quadrant Female Right (HCC) Procedures CT Pelvis Angiogram with IV Contrast CT Abd Pelvis Angio and Lower Ext Runoff Bilat with IV Contrast Foster Mcclendon B.M., B.Ch., Ph.D. [address] [place] [phone] Phone: tel: fax: Health System Referral ID Status Reason Start Date Expiration Date Visits Re quested Visits Authorized [id number] Closed 10/20/2024 01/20/2026 1 1 Encounter Details Date Type Department Care Team (Latest Contact Info) Description 11/08/2024 3:33 PM CDT - 11/08/2024 11:59 PM CDT Hospital Encounter Department of Radiology, [facility], in [place], [place] [address] [place] [phone] Foster Mcclendon B.M., B.Ch., Ph.D. [address] [place] [phone] Malignant Neoplasm Of Breast Upper Outer Quadrant Female Right (HCC) Discharge Disposition: Home or Self Care Social History Tobacco Use Types Packs/Day Years Used Date Smoking Tobacco: Never Passive Smoke Exposure: Past Smokeless Tobacco: Never Alcohol Use Standard Drinks/Week Comments Not Currently 0 (1 standard drink = 0.6 oz pur e alcohol) [facility] Utilities Answer Date Recorded In the [...] your living situation today? I have a [facility] place to live 10/30/2024 Comments No Sex and Gender Information Value Date Recorded Sex Assigned at Female 07/25/2024 9:49 AM VOCATIONAL EDUCATION TEACHER Legal Sex Female 6:01 PM VOCATIONAL EDUCATION TEACHER Gender Identity Female 07/25/2024 9:49 AM VOCATIONAL EDUCATION TEACHER Sexual Orientation Straight 07/25/2024 9: 49 AM VOCATIONAL EDUCATION TEACHER documented as of this encounter Medications at [...] CDT 11/02/2024 documented as of this encounter Plan of Treatment Upcoming Encounters Date Type Department Care Team (Late st Contact Info) Description 12/07/2024 10:15 AM CDT Appointment Department of Radiation Oncology in [place], [place] [address] [place] [phone] Tim Navarro M.D., Ph.D. [address] [place] [phone] 12/07/2024 11:30 AM CDT Appointment Department of Radiation Oncology in [place], [place] [address] [place] [phone] Tim Navarro M.D., Ph.D. [address] [place] [phone] Christy Wade R.N. [address] [place] [phone] 12/07/2024 12:20 PM CDT Appointment Department of Radiology, [facility], in [place], [place] [address] [place] [phone] Meghna Soto M.B., B.Ch. [address] [place] [phone] 12/07/2024 2:40 PM CDT Office Visit Department of Oncology in [place], [place] [address] [place] [phone] Meghna Soto M.B., B.Ch. [address] [place] [phone] 12/08/2024 8:00 AM CDT Telemedicine Department of Oncology in [place], [place] [address] [place] [phone] Haim Mueller APRN, C.N.P., D.N.P. [address] [place] [phone] Brooklyn Lombardi P.A.-C., M.S. [address] [place] [phone] 12/15/2024 10:00 AM CDT Virtual Visit Department of Cardiovascular Medicine in [place], [place] [address] [place] [phone] Soto Ta M.D., Ph.D. [address] [place] [phone] 02/05/2025 9:30 AM CDT Infusion Department of Infusion Therapy in [place], [place] [address] [place] [phone] Meghna Soto M.B., B.Ch. [address] [place] [phone] documented as of this encounter Procedures Procedure Name Priority Date/Time Associated Diagnosis Comments CT PELVIS ANGIOGRAM WITH IV CONTRAST RAD - Routine (most inpatients and all outpatients) 11/08/2024 4:44 PM CDT Malignant Neoplasm Of Breast Upper Outer Quadrant Female Right (HCC) documented in this encounter Results * CT Pelvis Angiogram with IV Contrast (11/08/2024 4:44 PM CDT) Anatomical Region Laterality Modality Pelvis, Cardiovascular RST L OS, Abdominal ARZ LOS, Vascular Interventional ARZ LOS, Vascular Interventional FLA LOS, Procedural, Vascular Interventional NWWI LOS N/A Computed Tomography, Computed Tomography Impressions 11/08/2024 4:36 PM CDT The largest abdominal wall clay digger on the right arises on series 9 images 25- 27 and has a relatively long intramuscular course. It originates 3.6 cm: 3.5 cm lateral to the center of the umbilicus. The largest clay digger on the left also has a relatively [...] COMPARISON: 11/27/2022 IMPRESSION: The largest abdominal wall clay digger on the right arises on series 9images 25- 27 and has a relatively long intramuscular course. It originates 3.6 cm: 3.5 cm lateral to the center of the umbilicus. The largest clay digger on the left also has a relatively longintramuscular course. It arises on series 9 image 25, 5 cm caudal and 3.8 cm lateral to thecenter of the umbilicus. Remainder negative. Foster Blount B.Ch., Ph.D. IMG CT PROCEDUR ES Final Result documented in this encounter Visit Diagnoses [...] MAR Action Action Date Dose Rate Site iopromide 370 mg iodine/mL injection 1-162 mL (Ultravist) 1-162 mL, intravenous, Once in imaging, contrast, Starting on Wed11/08/24 at 1625, For 1 dose, Imaging Protocol Orders, Dose per Radiant Medication Guidelines Given 11/08/2024 4:25 PM CDT 125 mL sodium chloride (PF) 0.9 % injection 1-100 mL 1-100 mL, intravenous, Once, On Wed11/08/24 at 1645, For 1 dose, Imaging Protocol Orders, Dose per Radiant Medication Guidelines Given 11/08/2024 4:25 PM CDT 30 mL documented in this encounter Additional Health Concerns Assessment Noted Time PHQ-9 Depression Total Score: 3 10/28/19 25 9:43 AM CDT documented as of this encounter Care Teams Rn Critical Care Relationship Specialty Start Date End Date Elsewhere, Pcp PCP - General Internal Medicine 07/25/24 documented as of this encounter
--- OUTSIDE RECORDS SUMMARY | 2024-12-06 20:56 | XMS_ITS | Encounter Summary ---
Author Organization [facility] Address [address] [place] [address] Care Team Providers Care Fish Bait Picker Name Role Phone Elsewhere, Pcp Primary Care Provider Unavailabl e Encounter Details Date Type Department Care Team (Latest Contact Info) Description 11/08/2024 12:00 PM CDT - 11/08/2024 3:32 PM CDT Hospital Encounter Department of Laboratory Medicine and Pathology, [facility] in [place], [place] [address] [place] [phone] Foster Mcclendon B.M., B.Ch., Ph.D. [address] [place] [phone] Malignant Neoplasm Of Breast Upper Outer Quadrant Female Right (HCC) Discharge Disposition: Home or Self Care Social History Tobacco Use Types Packs/Day Years Used Date Smoking Tobacco: Never Passive Smoke Exposure: Past Smokeless Tobacco: Never Alcohol Use Standard Drinks/Week Comments Not Currently 0 (1 standard drink = 0.6 oz pur e alcohol) [facility] Utilities Answer Date Recorded In the past 12 months has e [employer], gas, oil, or water company threatened to [...] your living situation today? I have a [facility] place to live 10/30/2024 Comments No Sex and Gender Information Value Date Recorded Sex Assigned at Female 07/25/2024 9:49 AM LINING FELLER BLINDSTITCH Legal Sex Female 6:01 PM LINING FELLER BLINDSTITCH Gender Identity Female 07/25/2024 9:49 AM LINING FELLER BLINDSTITCH Sexual Orientation Straight 07/25/2024 9: 49 AM LINING FELLER BLINDSTITCH documented as of this encounter Medications at [...] tablet 10/31/2024 3:20 PM CDT 11/02/2024 5 documented as of this encounter Plan of Treatment Upcoming Encounters Date Type Department Care Team (Late st Contact Info) Description 12/07/2024 10:15 AM CDT Appointment Department of Radiation Oncology in [place], [place] [address] [place] [phone] Tim Navarro M.D., Ph.D. [address] [place] [phone] 12/07/2024 11:30 AM CDT Appointment Department of Radiation Oncology in [place], [place] [address] [place] [phone] Tim Navarro M.D., Ph.D. [address] [place] [phone] Christy Wdae R.N. [address] [place] [phone] 12/07/2024 12:20 PM CDT Appointment Department of Radiology, [facility], in [place], [place] [address] [place] [phone] Meghna Soto M.B., B.Ch. [address] [place] [phone] 12/07/2024 2:40 PM CDT Office Visit Department of Oncology in [place], [place] [address] [place] [phone] Meghna Soto M.B., B.Ch. [address] [place] [phone] 12/08/2024 8:00 AM CDT Telemedicine Department of Oncology in [place], [place] [address] [place] [phone] Haim Mueller, AUTOMOTIVE LIGHT MECHANIC, C.N.P., D.N.P. [address] [place] [phone] Brooklyn Lombardi P.A.-Sajan., M.S. [address] [place] [phone] 12/15/2024 10:00 AM CDT Virtual Visit Department of Cardiovascular Medicine in [place], [place] [address] [place] [phone] Soto Ta M.D., Ph.D. [address] [place] [phone] 02/05/2025 9:30 AM CDT Infusion Department of Infusion Therapy in [place], [place] [address] [place] [phone] Meghna Soto M.B., B.Ch. [address] [place] [phone] documented as of this encounter Procedures Procedure Name Priority Date/Time Associated Diagnosis Comments CREATININE WITH EGFR, S/P Routine 11/08/2024 12:17 PM CDT Malignant Neoplasm Of Breast Upper Outer Quadrant Female Right (HCC) documented in this encounter Results * Creatinine with Estimated GFR (11/08/2024 12:17 PM CDT) Creatinine 0.81 0.59 - 1.04 mg/dL 11/08/2024 2:38 PM CDT DTL Estimated GFR (eGFR) 86 >=60 mL/min/BSA 11/08/2024 2:38 PM CDT DTL Comment: Estimated GFR calculated using the 2020 CKD_EPI creatinine equation. Blood (Blood, Venous) 11/08/2024 12:17 PM CDT 11/08/2024 1:33 PM CDT Foster Blount, B.Ch., Ph.D. LAB BLOOD ADD-O N Final Result [facility] 200 [place] [address], [facility] DTL [facility] 200 [place] [address] documented in this encounter Visit Diagnoses Diagnosis [...] documented as of this encounter Care Teams Fish Bait Picker Relationship Specialty Start Date End Date Elsewhere, Pcp PCP - General Internal Medicine 07/25/24 documented as of this encounter"
--- OUTSIDE RECORDS SUMMARY | 2024-12-06 20:56 | XMS_ITS | Encounter Summary ---
Author Organization [facility] Address [address] [place] [address] Care Team Providers Care Occupational Safety And Health Manager Name Role Phone Elsewhere, Pcp Primary Care Provider Unavailabl e Reason for Visit * Reason Onset Date Comments Oncotype Dx 11/09/2024 Encounter Details Date Type Department Care Team (Late st Contact Info) Description 11/09/2024 Clinical Communication Department of Oncology in [place], [place] [address] [place] [phone] Laura Kinsey, KRISSY, C.N.P., M.S.N. [address] [place] [phone] Oncotype Dx Social History Tobacco Use Types Packs/Day Years Used Date Smoking Tobacco: Never Passive Smoke Exposure: Past Smokeless Tobacco: Never Alcohol Use Standard Drinks/Week Comments Not Currently 0 (1 standard drink = 0.6 oz pur e alcohol) [facility] Utilities Answer Date Recorded In [...] Date Recorded Employment status Working with temporary [employer] 07/25/2024 Housing Stability Answer Date Recorded What is your living situation today? I have a [facility] place to live 10/30/2024 Comments No Sex and Gender Information Value Date Recorded Sex Assigned at Female 07/25/2024 9:49 AM UTILITY WORKER [employer] Legal Sex Female 6:01 PM UTILITY WORKER [employer] Gender Identity Female 07/25/2024 9:49 AM UTILITY WORKER [employer] Sexual Orientation Straight 07/25/2024 9: 49 AM UTILITY WORKER [employer] documented as of this encounter Plan of Treatment Upcoming Encounters Date Type Department Care Team (Late st Contact Info) Description 12/07/2024 10:15 AM CDT Appointment Department of Radiation Oncology in [place], [place] [address] [place] [phone] Tim Navarro M.D., Ph.D. [address] [place] [phone] 12/07/2024 11:30 AM CDT Appointment Department of Radiation Oncology in [place], [place] [address] [place] [phone] Tim Navarro M.D., Ph.D. [address] [place] [phone] Christy Wade R.N. [address] [place] [phone] 12/07/2024 12:20 PM CDT Appointment Department of Radiology, [facility], in [place], [place] [address] [place] [phone] Meghna Soto M.B., B.Ch. [address] [place] [phone] 12/07/2024 2:40 PM CDT Office Visit Department of Oncology in [place], [place] [address] [place] [phone] Meghna Soto M.B., B.Ch. [address] [place] [phone] 12/08/2024 8:00 AM CDT Telemedicine Department of Oncology in [place], [place] [address] [place] [address] [phone] Haim Mueller APRN, C.N.P., D.N.P. [address] [place] [address] [phone] Brooklyn Lombardi P.A.-C., M.S. [address] [place] [phone] 12/15/2024 10:00 AM CDT Virtual Visit Department of Cardiovascular Medicine in [place], [place] [address] [place] [phone] Soto Ta M.D., Ph.D. [address] [place] [phone] 02/05/2025 9:30 AM CDT Infusion Department of Infusion Therapy in [place], [place] [address] [place] [phone] Meghna Soto M.B., B.Ch. [address] [place] [phone] documented as of this encounter Visit Diagnoses Not on filedocumented in this encounter Additional Health Concerns Assessment Noted Time PHQ-9 Depression Total Score: 3 10/28/19 25 9:43 AM CDT documented as of this encounter Care Teams Occupational Safety And Health Manager Relationship Specialty Start Date End Date Elsewhere, Pcp PCP - General Internal Medicine 07/25/24 documented as of this encounter
--- OUTSIDE RECORDS SUMMARY | 2024-12-06 20:56 | XMS_ITS | Encounter Summary ---
Author Organization [facility] Address [address] [place] [address] Care Team Providers Care Campground Manager Name Role Phone Elsewhere, Pcp Primary Care Provider Unavailabl e Encounter Details Date Type Department Care Team (Late st Contact Info) Description 11/10/2024 Results Follow-Up Division of Plastic Surgery in [place], [place] [address] [place] [phone] Foster Mcclendon B.M., B.Ch., Ph.D. [address] [place] [phone] CT Pelvis Angiogram with IV Contrast Social History Tobacco Use Types Packs/Day Years Used Date Smoking Tobacco: Never Passive Smoke Exposure: Past Smokeless Tobacco: Never Alcohol Use Standard Drinks/Week Comments Not Currently 0 (1 standard drink = 0.6 oz pur e alcohol) [facility] Utilities Answer Date Recorded In the past 12 months has [employer], gas, oil, or water [employer] threatened to shut off services in your [...] Date Recorded Employment status Working with temporary [employer] 07/25/2024 Housing Stability Answer Date Recorded What is your living situation today? I have a [facility] place to live 10/30/2024 Comments No Sex and Gender Information Value Date Recorded Sex Assigned at Female 07/25/2024 9:49 AM ELECTRICAL HELPER Legal Sex Female 6:01 PM ELECTRICAL HELPER Gender Identity Female 07/25/2024 9:49 AM ELECTRICAL HELPER Sexual Orientation Straight 07/25/2024 9: 49 AM ELECTRICAL HELPER documented as of this encounter Plan of Treatment Upcoming Encounters Date Type Department Care Team (Late st Contact Info) Description 12/07/2024 10:15 AM CDT Appointment Department of Radiation Oncology in [place], [place] [address] [place] [phone] Tim Navarro M.D., Ph.D. [address] [place] [phone] 12/07/2024 11:30 AM CDT Appointment Department of Radiation Oncology in [place], [place] [address] [place] [phone] Tim Navarro M.D., Ph.D. [address] [place] [phone] Christy Wade R.N. [address] [place] [phone] 12/07/2024 12:20 PM CDT Appointment [facility] [place], [place] [address] [place] [phone] Meghna Soto M.B., B.Ch. [address] [place] [phone] 12/07/2024 2:40 PM CDT Office Visit Department of Oncology in [place], [place] [address] [place] [phone] Meghna Soto M.B., B.Ch. [address] [place] [phone] 12/08/2024 8:00 AM CDT Telemedicine Department of Oncology in [place], [place] [address] [place] [phone] Haim Mueller, KRISSY, C.N.P., D.N.P. [address] [place] [phone] Brooklyn Lombardi P.A.-C., M.S. [address] [place] [phone] 12/15/2024 10:00 AM CDT Virtual Visit Department of Cardiovascular Medicine in [place], [place] [address] [place] [phone] Soto Ta M.D., Ph.D. [address] [place] [phone] 02/05/2025 9:30 AM CDT Infusion Department of Infusion Therapy in [place], [place] [address] [place] [phone] Meghna Soto M.B., B.Ch. [address] [place] [phone] documented as of this encounter Visit Diagnoses Not on filedocumented in this encounter Additional Health Concerns Assessment Noted Time PHQ-9 Depression Total Score: 3 10/28/19 25 9:43 AM CDT documented as of this encounter Care Teams Campground Manager Relationship Specialty Start Date End Date Elsewhere, Pcp PCP - General Internal Medicine 07/25/24 documented as of this encounter
--- NOTE | 2024-12-06 21:04 | ED.GENADULT ---
HPI - General Adult General Time Seen by Provider: 21:05 Date Seen: 12/06/24 Chief complaint: Headache/Migraine Stated complaint: headache, high blood pressure Time Seen by Provider: 12/06/24 21:04 Source: patient, family ( with her) and RN notes reviewed Mode of arrival: ambulatory Limitations: no limitations History of Present Illness HPI narrative: This 54-year-old female is coming in with elevated blood pressure and a severe headache. She has a history of TIAs before, was found to have patent foramen ovale. She was on aspirin but was switched to Eliquis reportedly after mastectomy. She was found to have invasive lobular carcinoma of the right breast, grade 2, ER positive, OR positive, HER2 negative. She has not had any complications from her mastectomy, has been healing nicely. She had bilateral mastectomies and right sentinel node biopsy. She is in the process of working with medical oncology and radiation oncology. She has not started any treatment. She started with a mild headache this morning, it is severe. It is throughout her whole head. She is screaming in pain. She denies any visual changes, no trauma, no fevers or chills. She is speaking normally. She is able to use her arms and legs, has not noted any focal deficits. She does have a history headaches but nothing this severe recently. She states she did try some Tylenol at home, it did not help. Related Data Home Medications ?Medication ?Instructions ?Recorded ?Confirmed citalopram 10 mg tablet 10 mg PO DAILY 07/04/22 12/06/24 melatonin 08/01/24 apixaban 2.5 mg tablet (Eliquis) 2.5 mg PO BID 12/06/24 12/06/24 zolidex 12/06/24 Allergies Allergy/AdvReac Type Severity Reaction Status Date / Time amoxicillin (From Augmentin) Allergy Mild Hives Verified 12/06/24 22:14 clavulanic acid (From Allergy Mild Hives Verified 12/06/24 22:14 Augmentin) red dye Allergy Mild Hives Verified 12/06/24 22:14 morphine AdvReac Intermediate Verified 12/06/24 22:14 Review of Systems Status of ROS: Reports: 6 or more systems reviewed and unremarkable except as noted in History and below [facility] Medical History Migraine ?G43.909 - Migraine, unspecified, not intractable, without status migrainosus (ICD-10) FELIPA (generalized anxiety disorder) ?F41.1 - Generalized anxiety disorder (ICD-10) Surgical History History of 2 sections ?Z98.891 - History of uterine scar from previous surgery (ICD-10) History of tonsillectomy and adenoidectomy ?Z90.89 - Acquired absence of other organs (ICD-10) Social History Smoking Status: Never smoker Do you use any of these nicotine containing products: None Second hand tobacco smoke exposure: No How often do you have a drink containing alcohol: never How often do you have six or more drinks on one occasion: Never AUDIT-C Alcohol total score: 0 Non-prescribed substance use: denies use Exam Const: Vital Signs, click to edit/add: Vital Signs - 24 hr 12/06/24 20:55 12/06/24 21:10 12/06/24 21:40 Temperature 97.2 F L Pulse Rate Pulse Rate [Pulse Oximeter] 81 64 Respiratory Rate 16 16 Blood Pressure Blood Pressure [Ri ght Upper Arm] 166/110 H 144/91 H Pulse Oximetry 98 95 96 Oxygen Delivery Me thod Room Air Room Air 12/06/24 21:49 12/06/24 21:57 12/06/24 22:00 Temperature Pulse Rate 61 63 70 Pulse Rate [Pulse Oximeter] Respiratory Rate 15 16 23 Blood Pressure 144/93 H Blood Pressure [Ri ght Upper Arm] Pulse Oximetry 96 95 95 Oxygen Delivery Me thod 12/06/24 22:12 12/06/24 22:15 12/06/24 22:27 Temperature Pulse Rate 62 63 56 L Pulse Rate [Pulse Oximeter] Respiratory Rate 15 21 12 Blood Pressure 148/96 H 152/91 H Blood Pressure [Ri ght Upper Arm] Pulse Oximetry 97 97 93 Oxygen Delivery Me thod 12/06/24 22:30 12/06/24 22:42 12/06/24 22:45 Temperature Pulse Rate 65 57 L 62 Pulse Rate [Pulse Oximeter] Respiratory Rate 12 16 Blood Pressure 142/84 H Blood Pressure [Ri ght Upper Arm] Pulse Oximetry 82 L 97 98 Oxygen Delivery Me thod 12/06/24 22:57 12/06/24 23:00 12/06/24 23:12 Temperature Pulse Rate 60 57 L 67 Pulse Rate [Pulse Oximeter] Respiratory Rate 15 16 Blood Pressure 147/93 H 153/92 H Blood Pressure [Ri ght Upper Arm] Pulse Oximetry 90 95 97 Oxygen Delivery Me thod Room Air 12/06/24 23:15 12/06/24 23:27 12/06/24 23:30 Temperature Pulse Rate 62 63 65 Pulse Rate [Pulse Oximeter] Respiratory Rate 17 14 15 Blood Pressure 145/89 H Blood Pressure [Ri ght Upper Arm] Pulse Oximetry 95 95 95 Oxygen Delivery Me thod 12/06/24 23:42 12/06/24 23:45 12/06/24 23:57 Temperature Pulse Rate 66 66 65 Pulse Rate [Pulse Oximeter] Respiratory Rate 11 L 10 L 17 Blood Pressure 137/89 149/95 H Blood Pressure [Ri ght Upper Arm] Pulse Oximetry 97 97 97 Oxygen Delivery Me thod Room Air 12/06/24 23:58 12/07/24 00:00 12/07/24 00:12 Temperature Pulse Rate 66 67 71 Pulse Rate [Pulse Oximeter] Respiratory Rate 17 18 17 Blood Pressure 130/78 Blood Pressure [Ri ght Upper Arm] Pulse Oximetry 96 97 94 Oxygen Delivery Me thod 12/07/24 00:15 12/07/24 00:30 12/07/24 00:46 Temperature Pulse Rate 72 78 79 Pulse Rate [Pulse Oximeter] Respiratory Rate 17 17 17 Blood Pressure Blood Pressure [Ri ght Upper Arm] Pulse Oximetry 94 95 93 Oxygen Delivery Me thod Patient is screaming and moaning, able to stop and talk to me in between this. Pupils are about 2-3 mm, conjugate, sclera clear, extraocular muscles intact. Symmetrical facial function. Her neck is supple, no pain with range of motion. No masses or nodules. Lungs are clear, good air entry, wheeze or crackles. CV regular rate and rhythm, no murmur, normal S1-S2, no S3-S4. Abdomen is soft, nontender, nondistended, no organomegaly. Breasts are surgically absent. She is moving both arms, falls focal commands, moves both legs, follows focal commands. Strength and sensory are normal. No tremors, no dysmetria. They did put the automatic blood pressure cuff on while I was in there, when it went to cycle she screamed out in pain and sat up off the bed. Documenting provider has reviewed patient's vital signs: yes Course Course ED Course: Nursing staff had initiated a stroke code on patient's arrival. We will continue to proceed with expediency of the neuro imaging. She is on blood thinners, does have a severe headache but no neck pain noted at this time. This certainly could be intracranial pathology with brain bleed. There is no evidence of infections so would doubt meningitis or encephalitis. Will have her on cardiac monitoring, pulse oximetry. She is had an allergy to morphine, will try dose of IV fentanyl as she cannot have Toradol at this time. May need to proceed with migraine headache protocol but want to make sure her neuro imaging is stable. Reevaluation(s) Time of Reevaluation #1: 22:11 Reevaluation #1: Reviewed with patient that her head CT is showing the old infarct, no acute bleed, no new symptoms. Waiting on the CTA imaging to be read. Her pain is returning, severe. She feels her 1st stroke was with an episode where she had severe debilitating headache, was vomiting. After the fact they followed up with Neurology and this lesion was found on the neuro imaging. I did review with them that headache is not typical of stroke symptoms. We will give her another dose of fentanyl and I will page Neurology. Will re-dose her fentanyl with 50 mg IV push. Discussed that we typically do not use narcotics with migraine headaches but she is not thinking she is having a migraine, she is concerned about stroke. Reviewed with her that it is there is no evidence of subarachnoid hemorrhage but that ischemic strokes have neurologic disability and primary severe headache is not presenting symptomatology. Time of Reevaluation #2: 23:59 Reevaluation #2: Patient's headache has improved again, down to about a 3. She is not staying overnight to get an MRI in the morning. She is worried about going home and having the headache worsened again, seems to respond and then worsen after medicine start to wear off. I would not give her steroids given she had recent surgery with her mastectomies. We discussed doing the ketamine protocol which she did agree to. Will have her discharge once she has met appropriate post ketamine infusion criteria with nursing staff. Consultations Consultation #1: Spoke with stroke neurologist police surgeon from [facility]. Reviewed patient's history, her concern for stroke but the only complaint was severe headache. Her blood pressure is elevated but that can happen with pain and headache. There is no evidence bleeding, CT angiography is done and no concerns there. He did not get the images, will have Radiology push send to him and he will call me back. He did review images, reviewed her prior MRI. He thinks it might be something with vessels that her dilated, not necessarily a stroke. He does agree that this is a migraine but if patient is adamant, proceed with MRI imaging in the morning. I did subsequently talk to her and her about this. We will proceed with Benadperico and Li, will give her a single IV dose of Toradol. She states she has appointments all day at [place], reviewed with her that I cannot get an MRI here tonight there is just nothing I can do about that. Time: 22:20 Vital Signs Vital signs: Initial Vital Signs Temperature 97.2 F L 12/06/24 20:55 Temperature Source Temporal Artery Scan 12/06/24 20:55 Pulse Rate 81 12/06/24 20:55 Respiratory Rate 16 12/06/24 20:55 Blood Pressure 166/110 H 12/06/24 20:55 Blood Pressure Mean 128 H 12/06/24 20:55 Pulse Oximetry 98 12/06/24 20:55 Oxygen Delivery Method Room Air 12/06/24 20:55 Vital Signs Temperature 97.2 F L 12/06/24 20:55 Pulse Rate 81 12/06/24 20:55 Respiratory Rate 16 12/06/24 20:55 Blood Pressure 166/110 H 12/06/24 20:55 Pulse Oximetry 98 12/06/24 20:55 Oxygen Delivery Method Room Air 12/06/24 20:55 Temperature 97.2 F L 12/06/24 20:55 Pulse Rate 79 12/07/24 00:46 Respiratory Rate 17 12/07/24 00:46 Blood Pressure 130/78 12/07/24 00:12 Pulse Oximetry 93 12/07/24 00:46 Oxygen Delivery Method Room Air 12/06/24 23:57 Medications Administered Medications: Discontinued Medications Generic Name Dose Route Start Last Admin Trade Name Freq PRN Reason Stop Dose Admin Diphenhydramine HCl 25 mg 12/06/24 22:48 12/06/24 23:45 Diphenhydramine 50 Mg/Ml Inj IVP 12/06/24 22:49 25 mg ONCE ONE Administration Fentanyl 50 mcg 12/06/24 21:07 12/06/24 21:11 Fentanyl 100 Mcg/2 Ml Inj IVP 12/06/24 21:08 50 mcg ONCE ONE Administration Fentanyl 50 mcg 12/06/24 22:13 12/06/24 22:18 Fentanyl 100 Mcg/2 Ml Inj IVP 12/06/24 22:14 50 mcg ONCE ONE Administration Sodium Chloride 1,000 mls @ 500 mls/hr 12/06/24 21:07 12/07/24 00:29 0.9 % Sodium Chloride 1000 Ml IV 12/06/24 23:06 Infused .Q2H QUENTIN Infusion Metoclopramide HCl 10 mg/ 102 mls @ 306 mls/hr 12/06/24 22:48 12/06/24 23:40 Sodium Chloride IVPB 12/06/24 22:49 Infused ONCE ONE Infusion Ketamine HCl 20 mg/ Sodium 100.2 mls @ 200.4 mls/hr 12/06/24 23:59 12/07/24 00:58 Chloride IVPB 12/07/24 00:00 Infused ONCE ONE Infusion Ketorolac Tromethamine 15 mg 12/06/24 22:48 12/06/24 23:11 Ketorolac 15 Mg/Ml Inj IVP 12/06/24 22:49 15 mg ONCE ONE Administration Ondansetron HCl 4 mg 12/06/24 21:07 12/06/24 21:11 Ondansetron 2 Mg/Ml Inj IVP 12/06/24 21:08 4 mg ONCE ONE Administration Medical Decision Making Lab Data Lab results reviewed: Yes I reviewed the patient's lab results Labs: Lab Results 12/06/24 Range/Units 21:06 WBC 6.57 (4.50-11.00) K/uL RBC 4.24 (4.00-5.20) m/uL Hgb 10.7 L (12.0-16.0) gm/dL Hct 34.1 (33.0-51.0) % MCV 80 (80-100) fL MCH 25 L (26-34) pg MCHC 31 L (32-36) gm/dL RDW Coeff of Pardeep 13.0 (11.5-15.5) % Plt Count 269 (140-440) K/uL Neut % (Auto) 33.7 L (42.0-72.0) % Lymph % (Auto) 47.6 H (20-44) % Jefferson % (Auto) 12.9 H (0.0-11.0) % Eos % (Auto) 4.7 (0.0-7.0) % Baso % (Auto) 0.6 (0.0-3.0) % Neut # (Auto) 2.20 (1.7-7.0) K/uL Lymph # (Auto) 3.10 H (0.90-2.90) K/uL Jefferson # (Auto) 0.80 (0.00-0.90) K/UL Eos # (Auto) 0.31 (0.00-0.50) K/uL Baso # (Auto) 0.04 (0.00-0.30) K/uL Abs Immat Gran (auto) 0.03 (0.00-0.30) K/uL Imm/Tot Granulo (auto) 0.5 % ESR 7 (2-20) mm/hr Sodium 140 (135-149) mmol/L Potassium 3.5 L (3.6-5.1) mmol/L Chloride 104 (96-114) mmol/L Carbon Dioxide 26 (20-32) mmol/L Anion Gap 10 (7-15) mEq/L BUN 15 (7-30) mg/dL Creatinine 0.8 (0.5-1.5) mg/dL Estimated Creat Clear 72.34 Estimated GFR 88 ml/min Glucose 83 (60-115) mg/dL Calcium 8.7 (8.4-10.6) mg/dL Total Bilirubin 0.4 (0.1-1.5) mg/dL AST 35 (12-35) U/L ALT 25 (4-35) U/L Alkaline Phosphatase 57 (40-150) U/L C-Reactive Protein < 0.5 L (0.5-1.0) mg/dL Total Protein 7.4 (6.0-8.3) g/dL Albumin 4.4 (3.3-5.0) g/dL Imaging Data CT scan - head: Attestation: I have reviewed the pertinent imaging results. Radiologist's impression: Patient: LIVAN BUTLER Facility:?[facility] Patient ID:?[id number] Site Patient ID:?[id number]. Site :?1970 Study:?CT-Head WITHOUT-12/06/2024 9:36:04 PM Ordering Physician:Nickolas Forrest Final Report: INDICATION: Headache. TECHNIQUE: CT head without contrast. COMPARISON: MRI brain 08/11/2023. FINDINGS: CSF spaces: Within normal limits for age. Brain parenchyma: Chronic lacunar infarct left periatrial white matter, unchanged. The gasca-white differentiation is maintained. No sign of mass, hemorrhage, or midline shift. Skull base and calvarium: Paranasal sinuses are clear. Chronic left mastoid effusion, similar to prior. The visualized orbits are grossly unremarkable. No skull fractures. IMPRESSION: No acute intracranial abnormality. Please note that all CT scans at this facility use dose modulation, iterative reconstruction, and/or weight-based dosing when appropriate to reduce radiation dose to as low as reasonably achievable. Dictated by Kwesi Layton MD @ 12/06/2024 10:05:35 PM (Electronic Signature) CT- Other: Attestation: I have reviewed the pertinent imaging results. Radiologist's impression: Patient: LIVAN BUTLER Facility:?[facility] Patient ID:?[id number] Site Patient ID:?[id number]. Site :?1970 Study:?CT-Head Angio 95CC ISOVUE 370-12/06/2024 9:36:29 PM Ordering Physician:?Mercedes Forrest Preliminary Report: COMPARISON: None. IMPRESSION: CTA head: Unremarkable. No sign of occlusion or significant aneurysm. CTA neck: Unremarkable. No sign of dissection or significant stenosis. Dictated by Kwesi Layton MD @ 12/06/2024 10:09:57 PM Read by:Van Layton MD @12/06/2024 10:10:02 PM ECG Data Attestation: I personally reviewed and interpreted this ECG as follows: (Normal sinus rhythm, 68 beats per minute. No active ischemia.) Discharge Plan Discharge Clinical Impression: Migraine Patient Disposition: Home, Self-Care Condition: Stable Instructions: Migraine Headache (ED) Additional Instructions: Go home and rest, stay adequately hydrated. Can use Tylenol 1000 mg up to 3 times a day for any residual headache. If your symptoms are worsening, have further concerns, do recommend re-evaluation. Activity Level: Activity as Tolerated Prescriptions: No Action citalopram 10 mg tablet 10 mg PO DAILY melatonin Eliquis 2.5 mg tablet 2.5 mg PO BID zolidex Follow Up/Referrals: Shanelle Renee MD [Primary Care Provider] - Stand Alone Forms: [employer] Info Instructions
--- NOTE | 2024-12-06 21:05 | CRLHL7_ITS ---
For Patients: As a result of the Century Cures Act, medical imaging exams and procedure reports are released immediately into your electronic medical record. You may view this report before your referring provider. If you have questions, please contact your health care provider. INDICATION: Headache. TECHNIQUE: CT head without contrast. COMPARISON: MRI brain 08/11/2023. FINDINGS: CSF spaces: Within normal limits for age. Brain parenchyma: Chronic lacunar infarct left periatrial white matter, unchanged. The gasca-white differentiation is maintained. No sign of mass, hemorrhage, or midline shift. Skull base and calvarium: Paranasal sinuses are clear. Chronic left mastoid effusion, similar to prior. The visualized orbits are grossly unremarkable. No skull fractures. IMPRESSION: No acute intracranial abnormality. Please note that all CT scans at this facility use dose modulation, iterative reconstruction, and/or weight-based dosing when appropriate to reduce radiation dose to as low as reasonably achievable. Dictated by Kwesi Layton MD @ 12/06/2024 10:05:35 PM (Electronically Signed)
--- NOTE | 2024-12-06 21:05 | CRLHL7_ITS ---
For Patients: As a result of the Century Cures Act, medical imaging exams and procedure reports are released immediately into your electronic medical record. You may view this report before your referring provider. If you have questions, please contact your health care provider. DATE: 12/06/2024 CLINICAL HISTORY: Patient with headache. TECHNIQUE: Standard helical CT image acquisition of the neck up to the skull base after bolus intravenous contrast enhancement. 2D and 3D MIP images for post-processing were performed and interpreted on an independent workstation and 3D images were permanently archived. COMPARISON: CT same day. FINDINGS: The origins of the great vessels from the aortic arch are patent. The origin of the right vertebral artery is patent. The origin of the left vertebral artery is patent. The common carotid arteries are patent. There is no stenosis at the origin of the right internal carotid artery. There is no stenosis at the origin of the left internal carotid artery. The rest of the cervical segments of the internal carotid arteries are patent up to the skull base. The left vertebral artery is dominant. The cervical segments of the vertebral arteries are patent up to the skull base. The visualized lung apices are unremarkable. The thyroid gland is unremarkable. The soft tissues of the neck are unremarkable. There are degenerative changes in the cervical spine. IMPRESSION: Patent cervical vasculature. Please note that all CT scans at this facility use dose modulation, iterative reconstruction, and/or weight-based dosing when appropriate to reduce radiation dose to as low as reasonably achievable. Dictated by Taiwo Nick MD @ 12/07/2024 10:56:50 AM (Electronically Signed)
--- NOTE | 2024-12-06 21:05 | CRLHL7_ITS ---
For Patients: As a result of the Century Cures Act, medical imaging exams and procedure reports are released immediately into your electronic medical record. You may view this report before your referring provider. If you have questions, please contact your health care provider. DATE: 12/06/2024 CLINICAL HISTORY: Patient with severe headache. TECHNIQUE: Standard helical CT image acquisition through the intracranial circulation following intravenous administration of contrast material with bolus tracking. 2D and 3D MIP images for post-processing were performed and interpreted on an independent workstation and 3D images were permanently archived. COMPARISON: CT same day. FINDINGS: There is no cerebral aneurysm or large vessel occlusion. The right internal carotid artery is normal. The right middle cerebral artery and its branches are normal. The right anterior cerebral artery and its branches are normal. The left internal carotid artery is normal. The left middle cerebral artery and its branches are normal. The left anterior cerebral artery and its branches are normal. The anterior communicating artery is well visualized and appears normal. The right vertebral artery and PICA are normal. The left vertebral artery and PICA are normal. The vertebral arteries are codominant. The basilar artery is patent and appears normal. The right posterior cerebral artery is normal. The left posterior cerebral artery is normal. The visualized venous structures are patent. IMPRESSION: Patent proximal intracranial vasculature without intracranial aneurysms. Please note that all CT scans at this facility use dose modulation, iterative reconstruction, and/or weight-based dosing when appropriate to reduce radiation dose to as low as reasonably achievable. Dictated by Taiwo Nick MD @ 12/07/2024 10:58:55 AM (Electronically Signed)
[2024-12-06] MEDS: fentaNYL 100 MCG/2 ML inj 50 MCG IVP ×2 (21:11→22:18)
[2024-12-06] MEDS: ONDANSETRON 2 MG/ML inj 4 MG IVP (21:11)
[2024-12-06 21:16] LABS: Basophils Absolute Auto 0.04 K/uL (0.00-0.30); Basophils Percent Auto 0.6 % (0.0-3.0); Eosinophils Absolute Auto 0.31 K/uL (0.00-0.50); Eosinophils Percent Auto 4.7 % (0.0-7.0); Hematocrit 34.1 % (33.0-51.0); Hemoglobin* 10.7 gm/dL (12.0-16.0); Immature Granulocytes Abs Auto 0.03 K/uL (0.00-0.30); Immature Granulocytes Pct Auto 0.5 %; Lymphocytes Percent Auto 47.6 % (20-44); Mean Corpuscular HGB Conc 31 gm/dL (32-36); Mean Corpuscular Hemoglobin 25 pg (26-34); Mean Corpuscular Volume 80 fL (80-100); Monocytes Percent Auto 12.9 % (0.0-11.0); Neutrophils Percent Auto 33.7 % (42.0-72.0); Platelet Count* 269 K/uL (140-440); Red Blood Count 4.24 m/uL (4.00-5.20); White Blood Count* 6.57 K/uL (4.50-11.00)
[2024-12-06 21:21] LABS: Slide Review Reflex No
[2024-12-06 21:23] LABS: Albumin* 4.4 g/dL (3.3-5.0); Chloride* 104 mmol/L (96-114); Sodium* 140 mmol/L (135-149)
[2024-12-06 21:24] LABS: Potassium* 3.5 mmol/L (3.6-5.1)
[2024-12-06 21:26] LABS: Alanine Aminotransferase* 25 U/L (4-35); Aspartate Amino Transferase* 35 U/L (12-35); Blood Urea Nitrogen* 15 mg/dL (7-30); Creatinine* 0.8 mg/dL (0.5-1.5); Est. Creatinine Clearance* 72.34; Estimated Glomerular Filt Rate 88 ml/min
[2024-12-06 21:27] LABS: Alkaline Phosphatase* 57 U/L (40-150); Anion Gap 10 mEq/L (7-15); Bilirubin Total* 0.4 mg/dL (0.1-1.5); Calcium* 8.7 mg/dL (8.4-10.6); Carbon Dioxide* 26 mmol/L (20-32); Glucose* 83 mg/dL (60-115); Total Protein* 7.4 g/dL (6.0-8.3)
[2024-12-06 21:30] LABS: C Reactive Protein* < 0.5 mg/dL (0.5-1.0)
--- OUTSIDE RECORDS SUMMARY | 2024-12-06 21:43 | XMS_ITS | Encounter Summary ---
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 [address] [place] [phone] Phone: tel: fax: [facility] Referral ID Status Reason Start Date Expiration Date Visits Re quested Visits Authorized [id number] Closed 09/25/2024 03/27/2026 1 1 Scheduling Instructions Please schedule with Dr. Mcclendon per Nayla Solano. Thank you! PROGRAMMER Encounter Details Date Type Department Care Team (Late st Contact Info) Description 09/21/2024 Clinical Communication Division of Plastic Surgery in [place], [place] [address] [place] [phone] Foster Mcclendon B.M., B.Ch., Ph.D. [address] [place] [phone] Social History Tobacco Use Types Packs/Day Years Used Date Smoking Tobacco: Never Passive Smoke Exposure: Past Smokeless Tobacco: Never Alcohol Use Standard Drinks/Week Comments Not Currently 0 (1 standard drink = 0.6 oz pur e alcohol) [facility] Utilities Answer Date Recorded In [...] living situation today? I have a [facility] place to live 07/25/2024 Comments No Sex and Gender Information Value Date Recorded Sex Assigned at Female 07/25/2024 9:49 AM IT PROGRAMMER Legal Sex Female 6:01 PM IT PROGRAMMER Gender Identity Female 07/25/2024 9:49 AM IT PROGRAMMER Sexual Orientation Straight 07/25/2024 9: 49 AM IT PROGRAMMER documented as of this encounter Plan of Treatment Upcoming Encounters Date Type Department Care Team (Late st Contact Info) Description 12/07/2024 10:15 AM CDT Appointment Department of Radiation Oncology in [place], [place] [address] [place] [phone] Tim Navarro M.D., Ph.D. [address] [place] [phone] 12/07/2024 11:30 AM CDT Appointment Department of Radiation Oncology in [place], [place] [address] [place] [phone] Tim Navarro M.D., Ph.D. [address] [place] [phone] Christy Wade R.N. [address] [place] [phone] 12/07/2024 12:20 PM CDT Appointment Department of Radiology, [facility], in [place], [place] [address] [place] [phone] Meghna Soto M.B., B.Ch. [address] [place] [phone] 12/07/2024 2:40 PM CDT Office Visit Department of Oncology in [address] [phone] Meghna Soto M.B., B.Ch. [address] [place] [phone] 12/08/2024 8:00 AM CDT Telemedicine Department of Oncology in [address] [phone] Haim Mueller APRN, C.N.P., D.N.P. [address] [place] [phone] Brooklyn Lombardi P.A.-C., M.S. [address] [place] [phone] 12/15/2024 10:00 AM CDT Virtual Visit Department of Cardiovascular Medicine in [place], [place] [address] [place] [phone] Soto Ta M.D., Ph.D. [address] [place] [phone] 02/05/2025 9:30 AM CDT Infusion Department of Infusion Therapy in [place], [place] [address] [place] [phone] Meghna Soto M.B., B.Ch. [address] [place] [phone] Scheduled Referrals Name Type Priority Associated Diagnoses [...] (HCC) documented in this encounter Care Teams Data Capture Clerk Relationship Specialty Start Date End Date Elsewhere, Pcp PCP - General Internal Medicine 07/25/24 documented as of this encounter
--- OUTSIDE RECORDS SUMMARY | 2024-12-06 21:43 | XMS_ITS | Clinical Summary ---
Author Organization [facility] Address [address] [place] [address] Care Team Providers Care Emergency Department Nurse Name Role Phone Shanelle Renee Primary Care Provider [phone] Allergies Active Allergy Reactions Criticality Noted Date [...] - BLOOD ORDERABLES Final Re sult LABORATORY [facility] Acute Care Lab [address] 1st floor, Room [address] [place] [address], [facility] [phone] from Last 3 Months or Most Recently Relevant to Health Maintenance Care Teams Emergency Department Nurse Relationship Specialty Start Date End Date Shanelle Renee [address] [place] [address] PCP - General Family Medicine 11/02/22
--- OUTSIDE RECORDS SUMMARY | 2024-12-06 21:44 | XMS_ITS | Encounter Summary ---
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 [address] [place] [phone] Phone: tel: fax: [facility] Referral ID Status Reason Start Date Expiration Date V isits Requested Visits Authorized [id number] Authorized 11/08/2024 05/10/2026 1 1 Scheduling Instructions Do not schedule an heel pricker appointment. * Outpatient (Routine) - Authorized Specialty Diagnoses / Procedures Referred By Contac t Referred To Contact Diagnoses Malignant Neoplasm Of Breast Upper Outer Quadrant Female Right (HCC) Procedures BMD Bone Density Spine Hips Meghna Soto M.B., B.Ch. [address] [place] [phone] Phone: tel: fax: [facility] Referral ID Status Reason Start Date Expiration Date V isits Requested Visits Authorized [id number] Authorized 11/08/2024 02/08/2026 1 1 * Outpatient (Routine) - Authorized Specialty Diagnoses / Procedures Referred By Safia t Referred To Contact Oncology Meghna Soto M.B., B.Ch. [address] [place] [phone] Phone: tel: fax: Meghna Soto M.B., B.Ch. [address] [place] [phone] Phone: tel: fax: Referral ID Status Reason Start Date Expiration Date V isits Requested Visits Authorized [id number] Authorized 11/08/2024 05/10/2026 1 1 Reason for Visit * Outpatient (Routine) - Closed Specialty Diagnoses / Procedures Referred By Contac t Referred To Contact Medical Oncology / Oncology Diagnoses Malignant Neoplasm Of Breast Upper Outer Quadrant Female Right (HCC) Brie Durant M.D. [address] [place] [phone] Phone: tel: fax: [facility] Referral ID Status Reason Start Date Expiration Date Visits Re quested Visits Authorized [id number] Closed 09/19/2024 03/21/2026 1 1 Encounter Details Date Type Department Care Team (Latest Contact Info) Description 11/08/2024 10:00 AM CDT Comprehensive Visit Department of Oncology in [place], [place] [address] [place] [phone] Meghna Soto M.B., B.Ch. [address] [place] [phone] Malignant Neoplasm Of Breast Upper Outer Quadrant Female Right (HCC) (Primary Dx); Genetic Susceptibility To Breast Malignant Neoplasm; Stress; Anxiety Social History Tobacco Use Types Packs/Day Years Used Date Smoking Tobacco: Never Passive Smoke Exposure: Past Smokeless Tobacco: Never Alcohol Use Standard Drinks/Week Comments Not Currently 0 (1 standard drink = 0.6 oz pur e alcohol) [facility] Utilities Answer Date Recorded In the [...] your living situation today? I have a [facility] place to live 10/30/2024 Comments No Sex and Gender Information Value Date Recorded Sex Assigned at Female 07/25/2024 9:49 AM CASH MANAGEMENT COORDINATOR Legal Sex Female 6:01 PM CASH MANAGEMENT COORDINATOR Gender Identity Female 07/25/2024 9:49 AM CASH MANAGEMENT COORDINATOR Sexual Orientation Straight 07/25/2024 9: 49 AM CASH MANAGEMENT COORDINATOR documented as of this encounter Last Filed [...] the right breast, grade II, ER-positive (91-100%), MA-positive (91-100%), HER2-negative (score of 1+ by IHC), Ki67 5-10 %, pT1b(m) pN1a Mx (2024) Cancer Staging Cancer Breast Ductal In Situ Left Staging form: Breast, AJCC 8th Edition - Pathologic stage from 10/30/2024: Stage Unknown (pTis (DCIS), pNX, ER+, MA+, HER2: Not Assessed) Malignant Neoplasm Of 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 premenopausal at diagnosis female currently living at [address] [place] [address] [place] [address], who was recently diagnosed with a right [...] Trials: There are no therapeutic trials at [facility] ([facility]) for which the patient is currently a [...] to meet with her today. Meghna Soto [facility] Electronic Funds Transfer Coordinator Medical Oncologist Pager: [phone] * Ana Kinsey, KRISSY, C.N.P., M.S.N. - 11/08/2024 10:00 AM CDT Images from the original note were not included. SUBJECTIVE PRIMARY CARE PHYSICIAN ELSEWHERE, PCP PRIMARY [place] [facility] ONCOLOGIST Dr. Meghna Soto ([phone]). PRIMARY ADVANCED PRACTICE PROVIDER: Ana Kinsey CNP ([phone]) Cancer Staging Cancer Breast Ductal In Situ Left Staging form: Breast, AJCC 8th Edition - Pathologic stage from 10/30/2024: Stage Unknown (pTis (DCIS), pNX, ER+, MA+, HER2: Not Assessed) Malignant Neoplasm Of Breast Upper Outer Quadrant Female Right (HCC) Staging form: Breast, AJCC 8th Edition - Pathologic stage from 10/30/2024: Stage IA (pT1b, pN1a(sn), cM0, G2, ER+, MA+, HER2-) Current Therapy: None-Baseline visit Current Disease [...] right breast performed elsewhere andlater reviewed at [facility] showed Biopsy: Core biopsy, Right, 08/15/24 ; Clip: Vision. invasive lobular carcinoma; Grade: 2. Hormone receptor testing: Estrogen positive (91-100%), Progesterone positive (91-100%), HER2 1+ (negative), and Ki-67 (5-10%.) Per [place] [facility] Review: Complete. 08/31/2024 Genetic Testing and Tumor Genotyping 09/01/2024 Initial Diagnosis September 01, 2024: Consultation with Dr. Vasques-[facility]. Additional imaging and biopsies recommended. 09/15/2024 Biopsy/Pathology Site 1: MRI guided biopsy of the right breast, 8 o'clock position, 3.5 cm posterior to the nipple showed invasive lobular carcinoma grade 2 (of 3) measuring 4 mm in greatest linear extent. LCIS, classic and focal pleomorphic types present. ER and MA 91-100% positive. HER2 Rosa negative with a [...] mm in size with no extranodal extension. 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 Surgical margins negative with the closest margin greater than 10 mm. Tis 10/30/2024 Pathologic Stage Staging form: Breast, AJCC 8th Edition - Pathologic stage from 10/30/2024: Stage IA (pT1b, pN1a(sn), cM0, G2, ER+, MA+, HER2-) Stage prefix: Initial diagnosis Method of lymph node assessment: Haskell lymph node biopsy Nuclear grade: GX Multigene prognostic tests performed: None Histologic grading system: 3 grade system 11/08/2024 Other November 08, 2024: Consultation with Dr. Meghna Soto, [facility] Medical Oncology for adjuvant treatment discussion. 1. [...] solid type with associated microcalcifications. ER and MA 91-100% positive. 10/30/2024 Pathologic Stage Staging form: Breast, AJCC 8th Edition - Pathologic stage from 10/30/2024: Stage Unknown (pTis (DCIS), pNX, ER+, MA+, HER2: Not Assessed) Stage prefix: Initial diagnosis [...] several years ago and coming back to [place] for appointments has triggered some increase in [...] Brain Cancer and was treated here at [facility]. She has 3 children; in 2024, her son is 25 and lives in [place]. Her 22-year-old daughter goes to graduate school in [facility]. Her youngest, a daughter is 14. She currently lives alone with youngest child (14). She does have a significant other. Nonsmoker. She previously owned a yeppt but moved her children to another studio [...] age, at age ~70. Ancestry: Maternal ancestry: Marshallese and Azerbaijani. Paternal ancestry: Mohawk and Israeli. No known Ashkenazi Adventist ancestry. Common Hereditary Cancers Panel (48 genes) via [employer]. 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 OBJECTIVE VITALS Vitals: 11/08/24 0942 BP: 127/84 BP Location: Left arm Patient Position: Sitting Cuff Size: Regular Pulse: 83 Resp: 16 Temp: 37.2 ??C TempSrc: Tympanic SpO2: 98% Weight: 79.5 kg Height: 165.3 cm PHYSICAL EXAMINATION General: Alert, well appearing female in no distress. Skin: Holiday patch of discoloration to the right inferior [...] CDT Appointment Department of Radiation Oncology in [place], [place] [address] [place] [phone] Tim Navarro M.D., Ph.D. [address] [place] [phone] 12/07/2024 11:30 AM CDT Appointment Department of Radiation Oncology in [place], [place] [address] [place] [phone] Tim Navarro M.D., Ph.D. [address] [place] [phone] Christy Wade R.N. [address] [place] [phone] 12/07/2024 12:20 PM CDT Appointment Department of Radiology, [facility], in [place], [place] [address] [place] [phone] Meghna Soto M.B., B.Ch. [address] [place] [phone] 12/07/2024 2:40 PM CDT Office Visit Department of Oncology in [place], [place] [address] [place] [phone] Meghna Soto M.B., B.Ch. [address] [place] [phone] 12/08/2024 8:00 AM CDT Telemedicine Department of Oncology in [place], [place] [address] [place] [phone] Haim Mueller APRN, C.NTosha, D.N.P. [address] [place] [phone] Brooklyn Lombardi P.A.-C., M.S. [address] [place] [phone] 12/15/2024 10:00 AM CDT Virtual Visit Department of Cardiovascular Medicine in [place], [place] [address] [place] [phone] Soto Ta M.D., Ph.D. [address] [place] [phone] 02/05/2025 9:30 AM CDT Infusion Department of Infusion Therapy in [place], [place] [address] [place] [phone] Meghna Soto M.B., B.Ch. [address] [place] [phone] Scheduled Orders Name Type Priority Associated Diagnoses [...] Score Result 11 11/20/2024 2:56 PM CDT [email or web address] (CLIA #:[id number] ) EXT HER2 Score 9.6 11/20/2024 2:56 PM CDT [email or web address] (CLIA #:[id number] ) EXT HER2 Interpretation Negative 11/20/2024 2:56 PM CDT [email or web address] (CLIA #:[id number] ) EXT ER Score 8.2 11/20/2024 2:56 PM CDT [email or web address] (CLIA #:[id number] ) EXT ER Interpretation Positive 11/20/2024 2:56 PM CDT [email or web address] (CLIA #:[id number] ) EXT MA Score 8.1 11/20/2024 2:56 PM CDT [email or web address] (CLIA #:[id number] ) EXT MA Interpretation Positive 11/20/2024 2:56 PM CDT [email or web address] (CLIA #:[id number] ) EXT Attached Report For complete result and interpretati on, see attached report 11/20/2024 2:56 PM CDT [email or web address] (CLIA #:[id number] ) Tissue (Other, Specify in Comments) 10/30/2024 2:00 PM CDT 11/14/2024 6:49 PM CDT Sarah Rowley APRN, C.N.P., D.N.P. LAB GENETIC TEST ING Final Result [facility] (CLIA #:[id number]) [address] [place] [address] [email or web address] (CLIA #:[id number]) [address] [place] [address] * [facility] Exact Oncotype DX Breast Recurrence Score, Tissue - Sent Out Lab (10/30/2024 1:36 PM CDT) [facility] Onco DX Breast Recurr Score, T Collected, Sent to Reference Lab DEFAULT 11/13/2024 1:06 PM CDT [facility] Tissue (Other, Specify in Comments) 10/30/2024 1:36 PM CDT 11/13/2024 1:06 PM CDT Sarah Rowley APRN, C.N.P., D.N.P. LAB GENETIC TEST ING Final Result [facility] [address] [place] [address], [facility] [address] [place] [address] documented in this encounter Visit Diagnoses Diagnosis [...] documented as of this encounter Care Teams Import Export Coordinator Relationship Specialty Start Date End Date Elsewhere, Pcp PCP - General Internal Medicine 07/25/24 documented as of this encounter
--- OUTSIDE RECORDS SUMMARY | 2024-12-06 21:44 | XMS_ITS | Encounter Summary ---
Author Organization [facility] Address [address] [place] [address] Care Team Providers Care Snowboard Designer Name Role Phone Elsewhere, Pcp Primary Care Provider Unavailabl e Encounter Details Date Type Department Care Team (Late st Contact Info) Description 11/03/2024 Clinical Communication Division of Breast and Melanoma Surgical Oncology in [place], [place] [address] [place] [address] Hieu Granda M.D. [address] [place] [phone] Social History Tobacco Use Types Packs/Day Years Used Date Smoking Tobacco: Never Passive Smoke Exposure: Past Smokeless Tobacco: Never Alcohol Use Standard Drinks/Week Comments Not Currently 0 (1 standard drink = 0.6 oz pur e alcohol) [facility] Utilities Answer Date Recorded In the past 12 months has [employer], gas, oil, or water [employer] threatened to shut off services in your [...] Date Recorded Employment status Working with temporary [employer] 07/25/2024 Housing Stability Answer Date Recorded What is your living situation today? I have a [facility] place to live 10/30/2024 Comments No Sex and Gender Information Value Date Recorded Sex Assigned at Female 07/25/2024 9:49 AM SANTA'S HELPER Legal Sex Female 6:01 PM SANTA'S HELPER Gender Identity Female 07/25/2024 9:49 AM SANTA'S HELPER Sexual Orientation Straight 07/25/2024 9: 49 AM SANTA'S HELPER documented as of this encounter Miscellaneous Notes [...] Upcoming Encounters Date Type Department Care Team ([facility] st Contact Info) Description 12/07/2024 10:15 AM CDT Appointment Department of Radiation Oncology in [address] [phone] Tim Navarro M.D., Ph.D. [address] [place] [phone] 12/07/2024 11:30 AM CDT Appointment Department of Radiation Oncology in [address] [phone] Tim Navarro M.D., Ph.D. [address] [place] [phone] Christy Wade R.N. [address] [place] [phone] 12/07/2024 12:20 PM CDT Appointment Department of Radiology, [facility], in [address] [phone] Meghna Soto M.B., B.Ch. [address] [place] [phone] 12/07/2024 2:40 PM CDT Office Visit Department of Oncology in [address] [phone] Meghna Soto M.B., B.Ch. [address] [place] [phone] 12/08/2024 8:00 AM CDT Telemedicine Department of Oncology in [place], [place] [address] [place] [phone] Haim Mueller, KRISSY, C.N.P., D.N.P. [address] [place] [phone] Brooklyn Lombardi P.A.-C., M.S. [address] [place] [phone] 12/15/2024 10:00 AM CDT Virtual Visit Department of Cardiovascular Medicine in [place], [place] [address] [place] [phone] Soto Ta M.D., Ph.D. [address] [place] [phone] 02/05/2025 9:30 AM CDT Infusion Department of Infusion Therapy in [place], [place] [address] [place] [phone] Meghna Soto M.B., B.Ch. [address] [place] [phone] documented as of this encounter Visit Diagnoses Not on filedocumented in this encounter Additional Health Concerns Assessment Noted Time PHQ-9 Depression Total Score: 3 10/28/19 9:43 AM CDT documented as of this encounter Care Teams Snowboard Designer Relationship Specialty Start Date End Date Elsewhere, Pcp PCP - General Internal Medicine 07/25/24 documented as of this encounter
--- OUTSIDE RECORDS SUMMARY | 2024-12-06 21:44 | XMS_ITS | Encounter Summary ---
Author Organization [facility] Address [address] [place] [address] Care Team Providers Care Medical Office Assistant Name Role Phone Elsewhere, Pcp Primary Care Provider Unavailabl e Encounter Details Date Type Department Care Team (Late st Contact Info) Description 11/02/2024 Clinical Communication Division of Breast and Melanoma Surgical Oncology in [place], [place] [address] [place] [address] Brie Durant M.D. [address] [place] [phone] Social History Tobacco Use Types Packs/Day Years Used Date Smoking Tobacco: Never Passive Smoke Exposure: Past Smokeless Tobacco: Never Alcohol Use Standard Drinks/Week Comments Not Currently 0 (1 standard drink = 0.6 oz pur e alcohol) [facility] Utilities Answer Date Recorded In the past 12 months has [employer], gas, oil, or water [employer] threatened to shut off services in your [...] Date Recorded Employment status Working with temporary [employer] 07/25/2024 Housing Stability Answer Date Recorded What is your living situation today? I have a [facility] place to live 10/30/2024 Comments No Sex and Gender Information Value Date Recorded Sex Assigned at Female 07/25/2024 9:49 AM SENIOR LITIGATION PARALEGAL Legal Sex Female 6:01 PM SENIOR LITIGATION PARALEGAL Gender Identity Female 07/25/2024 9:49 AM SENIOR LITIGATION PARALEGAL Sexual Orientation Straight 07/25/2024 9: 49 AM SENIOR LITIGATION PARALEGAL documented as of this encounter Miscellaneous Notes [...] Upcoming Encounters Date Type Department Care Team ([facility] st Contact Info) Description 12/07/2024 10:15 AM CDT Appointment Department of Radiation Oncology in [address] [phone] Tim Navarro M.D., Ph.D. [address] [place] [phone] 12/07/2024 11:30 AM CDT Appointment Department of Radiation Oncology in [address] [phone] Tim Navarro M.D., Ph.D. [address] [place] [phone] Christy Wade R.N. [address] [place] [phone] 12/07/2024 12:20 PM CDT Appointment Department of Radiology, [facility], in [address] [phone] Meghna Soto M.B., B.Ch. [address] [place] [phone] 12/07/2024 2:40 PM CDT Office Visit Department of Oncology in [address] [phone] Meghna Soto M.B., B.Ch. [address] [place] [phone] 12/08/2024 8:00 AM CDT Telemedicine Department of Oncology in [place], [place] [address] [place] [phone] Haim Mueller, SCREEN PRINTING LOADER UNLOADER, C.N.P., D.N.P. [address] [place] [phone] Brooklyn Lombardi P.A.-C., M.S. [address] [place] [phone] 12/15/2024 10:00 AM CDT Virtual Visit Department of Cardiovascular Medicine in [place], [place] [address] [place] [phone] Soto Ta M.D., Ph.D. [address] [place] [phone] 02/05/2025 9:30 AM CDT Infusion Department of Infusion Therapy in [place], [place] [address] [place] [phone] Meghna Soto M.B., B.Ch. [address] [place] [phone] documented as of this encounter Visit Diagnoses Not on filedocumented in this encounter Additional Health Concerns Assessment Noted Time PHQ-9 Depression Total Score: 3 10/28/19 9:43 AM CDT documented as of this encounter Care Teams Medical Office Assistant Relationship Specialty Start Date End Date Elsewhere, Pcp PCP - General Internal Medicine 07/25/24 documented as of this encounter
--- OUTSIDE RECORDS SUMMARY | 2024-12-06 21:44 | XMS_ITS | Encounter Summary ---
Author Organization [facility] Address [address] [place] [address] Care Team Providers Care Economic Manager Name Role Phone Elsewhere, Pcp Primary Care Provider Unavailabl e Encounter Details Date Type Department Care Team (Late st Contact Info) Description 11/04/2024 Orders Only Department of Oncology in [place], [place] [address] [place] [phone] Meghna Soto M.B., B.Ch. [address] [place] [phone] Social History Tobacco Use Types Packs/Day Years Used Date Smoking Tobacco: Never Passive Smoke Exposure: Past Smokeless Tobacco: Never Alcohol Use Standard Drinks/Week Comments Not Currently 0 (1 standard drink = 0.6 oz pur e alcohol) [facility] Utilities Answer Date Recorded In the past 12 months has [employer], gas, oil, or water [employer] threatened to shut off services in your [...] Date Recorded Employment status Working with temporary [email or web address] 07/25/2024 Housing Stability Answer Date Recorded What is your living situation today? I have a [facility] place to live 10/30/2024 Comments No Sex and Gender Information Value Date Recorded Sex Assigned at Female 07/25/2024 9:[address] INSPECTOR Legal Sex Female 6:[address]PECTOR Gender Identity Female 07/25/2024 9:[address]PECTOR Sexual Orientation Straight 07/25/2024 9 :[address]PECTOR documented as of this encounter Plan of Treatment Upcoming Encounters Date Type Department Care Team (Late st Contact Info) Description 12/07/2024 10:15 AM CDT Appointment Department of Radiation Oncology in [place], [place] [address] [place] [address] Tim Navarro M.D., Ph.D. [address] [place] [phone] 12/07/2024 11:30 AM CDT Appointment Department of Radiation Oncology in [place], [place] [address] [place] [address] Tim Navarro M.D., Ph.D. [address] [place] [phone] Christy Wade R.N. [address] [place] [phone] 12/07/2024 12:20 PM CDT Appointment Department of Radiology, [facility], in [place], [place] [address] [place] [phone] Meghna Soto M.B., B.Ch. [address] [place] [phone] 12/07/2024 2:40 PM CDT Office Visit Department of Oncology in [place], [place] [address] [place] [phone] Meghna Soto M.B., B.Ch. [address] [place] [phone] 12/08/2024 8:00 AM CDT Telemedicine Department of Oncology in [place], [place] [address] [place] [phone] Haim Mueller, KRISSY, C.N.P., D.N.P. [address] [place] [phone] Brooklyn Lombardi, PLety.-C., M.S. [address] [place] [phone] 12/15/2024 10:00 AM CDT Virtual Visit Department of Cardiovascular Medicine in [place], [place] [address] [place] [phone] Soto Ta M.D., Ph.D. [address] [place] [phone] 02/05/2025 9:30 AM CDT Infusion Department of Infusion Therapy in [place], [place] [address] [place] [phone] Meghna Soto M.B., B.Ch. [address] [place] [phone] documented as of this encounter Visit Diagnoses Not on filedocumented in this encounter Additional Health Concerns Assessment Noted Time PHQ-9 Depression Total Score: 3 10/28/19 25 9:43 AM CDT documented as of this encounter Care Teams Economic Manager Relationship Specialty Start Date End Date Elsewhere, Pcp PCP - General Internal Medicine 07/25/24 documented as of this encounter
--- OUTSIDE RECORDS SUMMARY | 2024-12-06 21:44 | XMS_ITS | Encounter Summary ---
Author Organization [facility] Address [address] [place] [phone] Care Team Providers Care Health And Nutrition Specialist Name Role Phone Elsewhere, Pcp Primary Care Provider Unavailabl e Encounter Details Date Type Department Care Team (Late st Contact Info) Description 10/25/2024 Clinical Communication Division of Breast and Melanoma Surgical Oncology in [address] [place] [address] Brie Durant M.D. [address] [place] [phone] Social History Tobacco Use Types Packs/Day Years Used Date Smoking Tobacco: Never Passive Smoke Exposure: Past Smokeless Tobacco: Never Alcohol Use Standard Drinks/Week Comments Not Currently 0 (1 standard drink = 0.6 oz pur e alcohol) [facility] Utilities Answer Date Recorded In the past 12 months has [employer], gas, oil, or water [employer] threatened to shut off services in your [...] living situation today? I have a [facility] place to live 07/25/2024 Comments No Sex and Gender Information Value Date Recorded Sex Assigned at Female 07/25/2024 9:49 AM NEUROSURGICAL PHYSICIAN ASSISTANT Legal Sex Female 6:01 PM NEUROSURGICAL PHYSICIAN ASSISTANT Gender Identity Female 07/25/2024 9:49 AM NEUROSURGICAL PHYSICIAN ASSISTANT Sexual Orientation Straight 07/25/2024 9: 49 AM NEUROSURGICAL PHYSICIAN ASSISTANT documented as of this encounter Miscellaneous Notes [...] CDT Appointment Department of Radiation Oncology in [address] [place] [phone] Tim Navarro M.D., Ph.D. [address] [place] [phone] 12/07/2024 11:30 AM CDT Appointment Department of Radiation Oncology in [address] [place] [phone] Tim Navarro M.D., Ph.D. [address] [place] [phone] Christy Wade R.N. [address] [place] [phone] 12/07/2024 12:20 PM CDT Appointment Department of Radiology, [facility], in [address] [place] [phone] Meghna Soto M.B., B.Ch. [address] [place] [phone] 12/07/2024 2:40 PM CDT Office Visit Department of Oncology in [address] [place] [phone] Meghna Soto M.B., B.Ch. [address] [place] [phone] 12/08/2024 8:00 AM CDT Telemedicine Department of Oncology in [address] [place] [phone] Haim Mueller, KRISSY, C.N.P., D.N.P. [address] [place] [phone] Brooklyn Lombardi P.A.-C., M.S. [address] [place] [phone] 12/15/2024 10:00 AM CDT Virtual Visit Department of Cardiovascular Medicine in [address] [place] [phone] Soto Ta M.D., Ph.D. [address] [place] [phone] 02/05/2025 9:30 AM CDT Infusion Department of Infusion Therapy in [address] [place] [phone] Meghna Soto M.B., B.Ch. [address] [place] [phone] documented as of this encounter Visit Diagnoses Not on filedocumented in this encounter Care Teams Health And Nutrition Specialist Relationship Specialty Start Date End Date Elsewhere, Pcp PCP - General Internal Medicine 07/25/24 documented as of this encounter
--- OUTSIDE RECORDS SUMMARY | 2024-12-06 21:44 | XMS_ITS | Encounter Summary ---
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 [address] Phone: tel: fax: Referral ID Status Reason Start Date Expiration Date Visits Re quested Visits Authorized [id number] 1 1 Encounter Details Date Type Department Care Team ([facility] Contact Info) Description 10/30/2024 10:52 AM CDT Anesthesia Event [facility] MAIN OR [address] [place] [phone] Loraine Damon M.D. 200 [place] [phone] Soto Joshi M.D. 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 I have a [facility] place to live 10/30/2024 Comments No Sex and Gender Information Value Date Recorded Sex Assigned at Female 07/25/2024 9:49 AM STAFF CYTOTECHNOLOGIST Legal Sex Female 6:01 PM STAFF CYTOTECHNOLOGIST Gender Identity Female 07/25/2024 9:49 AM STAFF CYTOTECHNOLOGIST Sexual Orientation Straight 07/25/2024 9: 49 AM STAFF CYTOTECHNOLOGIST documented as of this encounter OR Notes * Anesthesia Postprocedure Evaluation - Loraine Damon M.D. - 11/01/2024 12:26 PM CDT Patient: Maryam Ayers Procedure Summary Date: 10/30/24 Room / Location: [place] [address] / [facility] in [place], [place] Anesthesia Start: 1052 Anesthesia Stop: 1625 [...] ETT location: oral VL device: glide scope [place] scope blade size: 3 Tube size: 7 [...] Outer Quadrant Female Right (HCC) [C50.411]. Location: [place] [address] / [facility] in [place], [place] Providers: Brie Durant M.D.; Foster Mcclendon [...] with patient /legal guardian or through an oncology consultant. Risks/Benefits/Alternatives of Blood transfusion discussed with patient [...] CDT Appointment Department of Radiation Oncology in [address] [phone] Tim Navarro M.D., Ph.D. [address] [place] [phone] 12/07/2024 11:30 AM CDT Appointment Department of Radiation Oncology in [address] [phone] Tim Navarro M.D., Ph.D. [address] [place] [phone] Christy Wade R.N. [address] [place] [phone] 12/07/2024 12:20 PM CDT Appointment Department of Radiology, [facility], in [address] [phone] Meghna Soto M.B., B.Ch. [address] [place] [phone] 12/07/2024 2:40 PM CDT Office Visit Department of Oncology in [place], [place] [address] [place] [phone] Meghna Soto M.B., B.Ch. [address] [place] [phone] 12/08/2024 8:00 AM CDT Telemedicine Department of Oncology in [place], [place] [address] [place] [phone] Haim Mueller APRN, C.N.P., D.N.P. [address] [place] [phone] Brooklyn Lombardi P.A.-C., M.S. [address] [place] [phone] 12/15/2024 10:00 AM CDT Virtual Visit Department of Cardiovascular Medicine in [place], [place] [address] [place] [phone] Soto Ta M.D., Ph.D. [address] [place] [phone] 02/05/2025 9:30 AM CDT Infusion Department of Infusion Therapy in [place], [place] [address] [place] [phone] Meghna Soto M.B., B.Ch. [address] [place] [phone] documented as of this encounter Procedures Procedure Name Priority Date/Time Associated Diagnosis Comments LDA ANE ENDOTRACHEAL AIRWAY Routine 10/30/2024 10:56 AM CDT documented in this encounter Results * LDA ANE ENDOTRACHEAL AIRWAY (10/30/2024 10:56 AM CDT) Narrative Brady Bess APRN, [employer] - 10/30/2024 10:56 AM CDT Brady Bess [...] ETT location: oral VL device: glide scope [place] scope blade size: 3 Tube size: 7 [...] documented as of this encounter Care Teams Patient Registration Supervisor Relationship Specialty Start Date End Date Elsewhere, Pcp PCP - General Internal Medicine 07/25/24 documented as of this encounter
--- OUTSIDE RECORDS SUMMARY | 2024-12-06 21:44 | XMS_ITS | Clinical Summary ---
Author Organization [facility] Address [address] [place] [address] Care Team Providers Care Sheepskin Pickler Name Role Phone Elsewhere, Pcp Primary Care Provider Unavailabl e Source Comments Patient records contain information from all sites at [facility]. For routine questions regarding patient records, call [phone] during business hours, M-F 8:00 AM - 5:00 PM Central Time. Record requests for emergency care only can be directed to [phone] at any time.[facility] Allergies Active Allergy Reactions Criticality Noted [...] stage from 10/30/2024:Stage Unknown(pTis (DCIS), pNX, ER+, OR+, HER2: Not Assessed) - Signed by Laura Kinsey APRN, C.N.P., M.S.N. 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 on 11/08/2024 Hypertension Essential Primary 07/25/2024 Dyspnea On Exertion 07/25/2024 Patent Foramen Ovale 07/25/2024 Migraine Headache 11/25/2011 Encounters * This document contains information received from the source organization and may not represent a complete record from that organization. Date Type Department Care Team Description 12/01/2024 Documentation Division of Breast and Melanoma Surgical Oncology in [place], [place] [address] [place] [address] Brie Durant M.D. Follow-up 11/27/2024 5:00 PM CDT Virtual Visit Department of Cardiovascular Medicine in [place], [place] [address] [place] [address] Tre Dumas M.D. Patent Foramen Ovale (HCC) (Primary Dx); Hypertension Essential Primary; Malignant Neoplasm Of Breast Upper Outer Quadrant Female Right (HCC) 11/27/2024 1:30 PM CDT Office Visit Division of Plastic Surgery in [place], [place] [address] [place] [address] Yoon Hamilton APRN C.N.P., D.N.P. Follow Up Examination Postoperative Visit (Primary Dx) 11/27/2024 Ancillary Procedure Department of Plastic and Reconstructive Surgery 11/27/2024 Orders Only Department of Oncology in [place], [place] [address] [place] [address] Meghna Soto M.B., B.Ch. 11/20/2024 8:45 AM CDT - 11/20/2024 1:10 PM CDT Hospital Encounter Department of Radiation Oncology in [place], [place] [address] [place] [phone] Tim Navarro M.D., Ph.D. 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 11/13/2024 9:30 AM CDT Infusion Department of Infusion Therapy in [place], [place] [address] [place] [phone] Meghna Soto M.B., B.Ch. Malignant Neoplasm Of Breast Upper Outer Quadrant Female Right (HCC) (Primary Dx) Discharge Disposition: Home or Self Care 11/13/2024 8:00 AM CDT Office Visit Division of Plastic Surgery in [address] [phone] Yoon Hamilton APRN C.N.P., D.N.P. Follow Up Examination Postoperative Visit (Primary Dx) 11/13/2024 Ancillary Procedure Department of Plastic and Reconstructive Surgery 11/10/2024 Results Follow-Up Division of Plastic Surgery in [address] [phone] Foster Mcclendon B.M., B.Ch., Ph.D. CT Pelvis Angiogram with IV Contrast 11/09/2024 Clinical Communication Department of Oncology in [place], [place] [address] [place] [phone] Laura Kinsey APRN C.N.P., M.S.N. Oncotype Dx 11/08/2024 3:33 PM CDT - 11/08/2024 11:59 PM CDT Hospital Encounter Department of Radiology, [facility] in [place], [place] [address] [place] [phone] Foster Mcclendon B.M., B.Ch., Ph.D. Malignant Neoplasm Of Breast Upper Outer Quadrant Female Right (HCC) Discharge Disposition: Home or Self Care 11/08/2024 1:00 PM CDT Office Visit Division of Breast and Melanoma Surgical Oncology in [place], [place] [address] [place] [address] Geno Stevenson APRN, C.N.P., D.N.P. Follow Up Examination Postoperative Visit (Primary Dx); Malignant Neoplasm Of Breast Upper Outer Quadrant Female Right (HCC) 11/08/2024 12:00 PM CDT - 11/08/2024 3:32 PM CDT Hospital Encounter Department of Laboratory Medicine and Pathology, [facility] in [place], [place] [address] [place] [address] Foster Mcclendon B.M., B.Ch., Ph.D. Malignant Neoplasm Of Breast Upper Outer Quadrant Female Right (HCC) Discharge Disposition: Home or Self Care 11/08/2024 10:00 AM CDT Comprehensive Visit Department of Oncology in [place], [place] [address] [place] [phone] Meghna Soto M.B., B.Ch. Malignant Neoplasm Of Breast Upper Outer Quadrant Female Right (HCC) (Primary Dx); Genetic Susceptibility To Breast Malignant Neoplasm; Stress; Anxiety 11/06/2024 Orders Only Division of Breast and Melanoma Surgical Oncology in [place], [place] [address] [place] [phone] Gail Monterroso R.N. 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 11/03/2024 Clinical Communication Division of Breast and Melanoma Surgical Oncology in [place], [place] [address] [place] [phone] Brie Durant M.D. 11/02/2024 Clinical Communication Division of Breast and Melanoma Surgical Oncology in [place], [place] [address] [place] [phone] Brie Durant M.D. 11/02/2024 Clinical Communication Division of Breast and Melanoma Surgical Oncology in [place], [place] [address] [place] [address] Brie Durant M.D. 11/01/2024 Clinical Communication Division of Breast and Melanoma Surgical Oncology in [place], [place] [address] [place] [address] Brie Durant M.D. 10/30/2024 2:15 PM CDT Ancillary Procedure Department of Laboratory Medicine 10/30/2024 10:52 AM CDT Anesthesia Event [facility] OR [address] [place] [address] Loraine Damon M.D. Kor, Benjamin T, M.D. 10/30/2024 9:05 AM CDT - 10/30/2024 4:21 PM CDT Surgery [facility] OR [address] [place] [address] Brie Durant M.D. BILATERAL SIMPLE MASTECTOMY. 10/30/2024 7:30 AM CDT - 10/30/2024 11:59 PM CDT Hospital Encounter Department of Radiology, [facility] in [place], [place] [address] [place] [address] Brie Durant M.D. Malignant Neoplasm Of Breast Upper Outer Quadrant Female Right (HCC) Discharge Disposition: Home or Self Care 10/30/2024 6:43 AM CDT - 10/31/2024 3:13 PM CDT Hospital Encounter [facility], [facility], Sixth Floor [address] [place] [address] Brie Durant M.D. Malignant Neoplasm Of Breast Upper Outer Quadrant Female Right (HCC) Discharge Disposition: Home or Self Care 10/30/2024 Orders Only Department of Cardiovascular Medicine in [place], [place] [address] [place] [address] Brady Martinez P.A.-C., M.S. 10/25/2024 Clinical Communication Division of Breast and Melanoma Surgical Oncology in [place], [place] [address] [place] [phone] Brie Durant M.D. 10/20/2024 12:00 PM FINISHER BRUSH Office Visit Division of Breast and Melanoma Surgical Oncology in [place], [place] [address] [place] [phone] Brie Durant M.D. Malignant Neoplasm Of Breast Upper Outer Quadrant Female Right (HCC) (Primary Dx) 10/20/2024 11:00 AM FINISHER BRUSH Comprehensive Visit Division of Plastic Surgery in [place], [place] [address] [place] [phone] Foster Mcclendon B.M., B.Ch., Ph.D. Malignant Neoplasm Of Breast Upper Outer Quadrant Female Right (HCC) (Primary Dx) 10/20/2024 Ancillary Procedure Department of Plastic and Reconstructive Surgery 10/19/2024 10:15 AM FINISHER BRUSH Clinical Communication Virtual Review in [place], [place] [address] [place] [address] 10/16/2024 7:30 AM FINISHER BRUSH Virtual Visit Department of Cardiovascular Medicine in [place], [place] [address] [place] [phone] Tre Dumas M.D. Patent Foramen Ovale (HCC) (Primary Dx); Migraine Headache; Hypertension Essential Primary 10/11/2024 1:00 PM FINISHER BRUSH Office Visit Department of Neurology in [address] [phone] Kwesi Poole M.D. Patent Foramen Ovale (HCC) (Primary Dx) 10/09/2024 10:12 AM FINISHER BRUSH - 10/09/2024 11:59 PM FINISHER BRUSH Hospital Encounter Department of Cardiovascular Diseases in [address] [phone] Tre Dumas M.D. Hypertension Essential Primary; Dyspnea On Exertion Discharge Disposition: Home or Self Care 10/09/2024 8:45 AM FINISHER BRUSH - 10/09/2024 10:11 AM FINISHER BRUSH Hospital Encounter Department of Laboratory Medicine and Pathology, [facility] in [place], [place] [address] [place] [phone] Tamika Santiago M.D. Patent Foramen Ovale (HCC) Discharge Disposition: Home or Self Care 09/27/2024 Orders Only Division of Breast and Melanoma Surgical Oncology in [place], [place] [address] [place] [phone] Gail Monterroso R.N. 09/21/2024 Clinical Communication Division of Plastic Surgery in [place], [place] [address] [place] [phone] Foster Mcclendon B.M., B.Ch., Ph.D. 09/19/2024 Orders Only Division of Breast and Melanoma Surgical Oncology in [place], [place] [address] [place] [phone] Gail Monterroso R.N. Malignant Neoplasm Of Breast Upper Outer Quadrant Female Right (HCC) (Primary Dx) 09/18/2024 Results Follow-Up Division of General Internal Medicine in [place], [place] [address] [place] [phone] Bina Vasques M.D. MR Breast Biopsy Right with Guidance 09/18/2024 Orders Only Division of Breast and Melanoma Surgical Oncology in [place], [place] [address] [place] [phone] Gail Monterroso RConchis Malignant Neoplasm Of Breast Upper Outer Quadrant Female Right (HCC) (Primary Dx) 09/15/2024 9:51 AM FINISHER BRUSH - 09/15/2024 11:59 PM FINISHER BRUSH Hospital Encounter Department of Radiology, [facility] in [place], [place] [address] [place] [address] Bina Vasques M.D. Abnormal Magnetic Resonance Imaging Breast; Malignant Neoplasm Of Breast Upper Outer Quadrant Female Right (HCC) Discharge Disposition: Home or Self Care 09/15/2024 9:45 AM FINISHER BRUSH - 09/15/2024 9:50 AM FINISHER BRUSH Hospital Encounter Department of Radiology, [facility], in [place], [place] [address] [place] [address] Bina Vasques M.D. Abnormal Magnetic Resonance Imaging Breast; Malignant Neoplasm Of Breast Upper Outer Quadrant Female Right (HCC) Discharge Disposition: Home or Self Care 09/15/2024 9:20 AM FINISHER BRUSH - 09/15/2024 9:44 AM FINISHER BRUSH Hospital Encounter Department of Radiology in [place], [place] [address] [place] [phone] Bina Vasques M.D. Abnormal Magnetic Resonance Imaging Breast; Malignant Neoplasm Of Breast Upper Outer Quadrant Female Right (HCC) Discharge Disposition: Home or Self Care 09/15/2024 9:17 AM FINISHER BRUSH - 09/15/2024 9:19 AM FINISHER BRUSH Hospital Encounter Department of Radiology, [facility] in [place], [place] [address] [place] [address] Bina Vasques M.D. Abnormal Magnetic Resonance Imaging Breast; Malignant Neoplasm Of Breast Upper Outer Quadrant Female Right (HCC) Discharge Disposition: Home or Self Care 09/15/2024 9:15 AM FINISHER BRUSH - 09/15/2024 9:16 AM FINISHER BRUSH Hospital Encounter Department of Radiology in [place], [place] [address] [place] [phone] Bina Vasques M.D. Abnormal Magnetic Resonance Imaging Breast; Malignant Neoplasm Of Breast Upper Outer Quadrant Female Right (HCC) Discharge Disposition: Home or Self Care 09/11/2024 Orders Only Division of General Internal Medicine in [place], [place] [address] [place] [phone] Bina Vasques M.D. Abnormal Magnetic Resonance Imaging Breast (Primary Dx); Malignant Neoplasm Of Breast Upper Outer Quadrant Female Right (HCC) 09/08/2024 8:15 AM FINISHER BRUSH Comprehensive Visit Division of Breast and Melanoma Surgical Oncology in [place], [place] [address] [place] [address] Brie Durant M.D. Malignant Neoplasm Of Breast Upper Outer Quadrant Female Right (HCC) 09/07/2024 3:30 PM FINISHER BRUSH Comprehensive Visit Division of Allergic Diseases in [place], [place] [address] [place] [address] Janice Menard P.A.Mariela., M.S. Allergy Penicillin Antibiotic Personal History (Primary Dx) 09/07/2024 2:45 PM FINISHER BRUSH Clinical Support Division of Allergic Diseases in [place], [place] [address] [place] [phone] Peggy Silvestre M.D., Ph.D. Annita Garcia R.N. Allergy Penicillin Antibiotic Personal History 09/07/2024 1:00 PM FINISHER BRUSH Comprehensive Visit Breast Diagnostic Clinic in [place], [place] [address] [place] [phone] Roxy Mayo, Ph.D., L.P. 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 I have a [facility] place to live 10/30/2024 Comments No Sex and Gender Information Value Date Recorded Sex Assigned at Female 07/25/2024 9:49 AM FINISHER BRUSH Legal Sex Female 6:01 PM FINISHER BRUSH Gender Identity Female 07/25/2024 9:49 AM FINISHER BRUSH Sexual Orientation Straight 07/25/2024 9: 49 AM FINISHER BRUSH Last Filed Vital Signs Vital Sign Reading [...] CDT Appointment Department of Radiation Oncology in [address] [phone] Tim Navarro M.D., Ph.D. [address] [place] [phone] 12/07/2024 11:30 AM CDT Appointment Department of Radiation Oncology in [address] [phone] Tim Navarro M.D., Ph.D. [address] [place] [phone] Christy Wade R.N. [address] [place] [phone] 12/07/2024 12:20 PM CDT Appointment Department of Radiology, [facility], in [address] [phone] Meghna Soto M.B., B.Ch. [address] [place] [phone] 12/07/2024 2:40 PM CDT Office Visit Department of Oncology in [address] [phone] Meghna Soto M.B., B.Ch. [address] [place] [phone] 12/08/2024 8:00 AM CDT Telemedicine Department of Oncology in [place], [place] [address] [place] [phone] Haim Mueller, KRISSY, C.N.P., D.N.P. [address] [place] [phone] Brooklyn Lombardi P.A.-Sajan., M.S. [address] [place] [phone] 12/15/2024 10:00 AM CDT Virtual Visit Department of Cardiovascular Medicine in [place], [place] [address] [place] [phone] Soto Ta M.D., Ph.D. [address] [place] [phone] 02/05/2025 9:30 AM CDT Infusion Department of Infusion Therapy in [place], [place] [address] [place] [phone] Meghna Soto M.B., B.Ch. [address] [place] [phone] Health Maintenance Due Date Last Done Comments [...] this topic Medical Devices Implanted Type Area Product Picker Device Identifier Shelf Expiration Date Model / Serial / Lot Clp Hrzn Ti 6 Jenni Elise Gonzalo - [id number] Implanted:Qt y: 1 on 10/30/2024 by Brie Durant M.D. at [facility] Hardware e.g. pins/screws /rods [employer] [id number] / / Clp Hrzn Ti 6 Jenni Elise Gonzalo - [id number] Implanted:Qt y: 1 on 10/30/2024 by Brie Durant M.D. at [facility] Hardware e.g. pins/screws /rods [employer] [id number] / / Imaging Marker-08/15 Implanted: (Quantity not on file) Imaging Marker Right: Breast Mrk Brst Biop Hyd Opn Cl - [id number] Implanted:Qt y: 1 on 09/15/2024 by Kj Wong M.D. at [facility] Imaging Marker Right: Breast Mammotome [id number] 06/08/202740094009-08-23- T3 / / [id number] Mrk Brst Biop Atec Trm - [id number] Implanted:Qt y: 1 on 09/15/2024 by Kj Wong M.D. at [facility] Imaging Marker Right: Breast [employer] [id number] 04/18/2026 TRIMARKTD 13-MR / / [id number] Mrk Brst Biop Atec Trm - [id number] Implanted:Qt y: 1 on 09/15/2024 by Kj Wong M.D. at [facility] Imaging Marker Left: Breast [employer] [id number] 04/18/2026 TRIMARKTD 13-MR / / [id number] Explanted Type Area Product Picker Device Identifier Shelf Expiration Date Model / [...] SURGERY IMAGE EXAM Routine 10/20/2024 12:00 AM FINISHER BRUSH (TTE) 2D ECHO DOPPLER COLOR AND CONTRAST Routine 10/09/2024 11:54 AM FINISHER BRUSH Hypertension Essential Primary Dyspnea On Exertion PHOSPHOLIPID (CARDIOLIPIN) ABS, IGG AND IGM, S Routine 10/09/2024 8:59 AM FINISHER BRUSH Patent Foramen Ovale (HCC) BETA-2 GLYCOPROTEIN 1 ABS, IGG AND IGM, S Routine 10/09/2024 8:59 AM FINISHER BRUSH Patent Foramen Ovale (HCC) THROMBOPHILIA PROF Routine 10/09/2024 8: 59 AM FINISHER BRUSH Patent Foramen Ovale (HCC) BI BREAST DIAGNOSTIC RIGHT POST PROCEDURE RAD - Routine (most inpatients and all outpatients) 09/15/2024 12:46 PM FINISHER BRUSH Abnormal Magnetic Resonance Imaging Breast Malignant Neoplasm Of Breast Upper Outer Quadrant Female Right (HCC) BI BREAST DIAGNOSTIC LEFT POST PROCEDURE RAD - Routine (most inpatients and all outpatients) 09/15/2024 12:46 PM FINISHER BRUSH Abnormal Magnetic Resonance Imaging Breast Malignant Neoplasm Of Breast Upper Outer Quadrant Female Right (HCC) MR BREAST BIOPSY LEFT WITH GUIDANCE RAD - Routine (most inpatients and all outpatients) 09/15/2024 12:30 PM FINISHER BRUSH Abnormal Magnetic Resonance Imaging Breast Malignant Neoplasm Of Breast Upper Outer Quadrant Female Right (HCC) MR BREAST BIOPSY RIGHT ADDITIONAL LESION WITH GUIDE RAD - Routine (most inpatients and all outpatients) 09/15/2024 12:28 PM FINISHER BRUSH Abnormal Magnetic Resonance Imaging Breast Malignant Neoplasm Of Breast Upper Outer Quadrant Female Right (HCC) MR BREAST BIOPSY RIGHT WITH GUIDANCE RAD - Routine (most inpatients and all outpatients) 09/15/2024 12:27 PM FINISHER BRUSH Abnormal Magnetic Resonance Imaging Breast Malignant Neoplasm Of Breast Upper Outer Quadrant Female Right (HCC) SURGICAL PATHOLOGY Routine 09/15/2024 11:52 AM FINISHER BRUSH Abnormal Magnetic Resonance Imaging Breast Malignant Neoplasm Of Breast Upper Outer Quadrant Female Right (HCC) SURGICAL PATHOLOGY Routine 09/15/2024 11:45 AM FINISHER BRUSH Abnormal Magnetic Resonance Imaging Breast Malignant Neoplasm Of Breast Upper Outer Quadrant Female Right (HCC) SURGICAL PATHOLOGY Routine 09/15/2024 11:43 AM FINISHER BRUSH Abnormal Magnetic Resonance Imaging Breast Malignant Neoplasm Of Breast Upper Outer Quadrant Female Right (HCC) EVENT MONITOR - ALL CHARGES Routine 09/09/2024 11:59 PM FINISHER BRUSH Hypertension Essential Primary Other Dyspnea OUTSIDE MG MAMMOGRAM Routine 08/15/2024 1:50 PM FINISHER BRUSH from Last 3 Months or Most Recently [...] 4:36 PM CDT The largest abdominal wall interventional pain physician on the right arises on series 9 images 25- 27 and has a relatively long intramuscular course. It originates 3.6 cm: 3.5 cm lateral to the center of the umbilicus. The largest interventional pain physician on the left also has a relatively [...] COMPARISON: 11/27/2022 IMPRESSION: The largest abdominal wall interventional pain physician on the right arises on series 9images 25- 27 and has a relatively long intramuscular course. It originates 3.6 cm: 3.5 cm lateral to the center of the umbilicus. The largest interventional pain physician on the left also has a relatively [...] ADD-O N Final Result Performing Organization Address [facility]/ZIP Co de Phone Number [facility] [address] [place] [address], [facility] [address] [place] [address] * Specimen-Pathology Image Exam (10/30/2024 2:15 PM [...] PROCE DURES Final Result Performing Organization Address City/[facility] Co de Phone Number [facility]IM[facility] NA * EXT Oncotype DX Breast Recurrence Score (10/30/2024 2:00 PM CDT) EXT Recurrence Score Result 11 11/20/2024 2:56 PM CDT [employer] (CLIA #:[id number] ) EXT HER2 Score 9.6 11/20/2024 2:56 PM CDT [employer] (CLIA #:[id number] ) EXT HER2 Interpretation Negative 11/20/2024 2:56 PM CDT [employer] (CLIA #:[id number] ) EXT ER Score 8.2 11/20/2024 2:56 PM CDT [employer] (CLIA #:[id number] ) EXT ER Interpretation Positive 11/20/2024 2:56 PM CDT [employer] (CLIA #:[id number] ) EXT OR Score 8.1 11/20/2024 2:56 PM CDT [employer] (CLIA #:[id number] ) EXT OR Interpretation Positive 11/20/2024 2:56 PM CDT [employer] (CLIA #:[id number] ) EXT Attached Report For complete result and interpretati on, see attached report 11/20/2024 2:56 PM CDT [employer] (CLIA #:[id number] ) Tissue (Other, Specify in Comments) 10/30/2024 2:00 PM CDT 11/14/2024 6:49 PM CDT us Sarah Rowley APRN C.N.P., D.N.P. LAB GENETIC TEST ING Final Result Performing Organization Address [facility] de Phone Number [employer] (CLIA #:[id number]) [address] [place] [address] [employer] (CLIA #:[id number]) [address] [place], [place] [phone] * [facility] Exact Oncotype DX Breast Recurrence Score, Tissue - Sent Out Lab (10/30/2024 1:36 PM CDT) [facility]ura Onco DX Breast Recurr Score, T Collected, Sent to Reference Lab DEFAULT 11/13/2024 1:06 PM CDT [facility] Tissue (Other, Specify in Comments) 10/30/2024 1:36 PM CDT 11/13/2024 1:06 PM CDT us Sarah Rowley APRN C.N.P., D.N.P. LAB GENETIC TEST ING Final Result Performing Organization Address City/[facility]/ZIP Co de Phone Number [facility] [address] [place] [address], [facility] [address] [place] [address] * Surgical Pathology, Frozen Lab (10/30/2024 12:58 [...] permanent sections. Grossed by Daphnie Matthews M.S., PA([facility] C. Received fresh labeled right breast total [...] 60% adipose and 40% fibrocystic tissues, grossly. Dog Trainer tissue submitted for frozen and permanent sections. After clinical evaluation, residual tissue is procured for IRB No. [id number]. Grossed by Av Spence M.S., PA([facility]). D. Received fresh labeled left breast total [...] fibrous tissue and 40% adipose tissue, grossly. Dog Trainer tissue submitted for frozen and permanent sections. After clinical evaluation, residual tissue is procured for IRB No. [id number]. Grossed by Daphnie Matthews M.S., HOLLIE([facility]). E. Received fresh labeled right breast lateral tissue is a 43 g aggregate of fibroadipose tissue and skin. No masses identified. Dog Trainer tissue submitted for permanent sections. Grossed by Av Spence M.S., HOLLIE([facility]). 11/02/2024 11:53 AM CDT [facility] Block Summary [...] [place] [facility] [place] Signed by Cezar Herrera M.D. 11/13/2024 [...] Histologic Type: Invasive lobular carcinoma Histologic Grade ([place] Histologic Score) Glandular (Acinar)/Tubular Differentiation: Score 3 [...] ns present in non-neoplastic tissue Residual Cancer [place] (RCB) Calculation: Not applicable Margins Margin Status [...] and 2 long lateral Tissue (Lymph Node, [place]) 10/30/2024 12:58 PM CDT Tissue (Lymph Node, [place]) 10/30/2024 1:00 PM CDT Tissue (Breast, Right) 10/30/2024 3:18 PM CDT us Brie Durant M.D. LAB SURG PATH ORDERABLES Ed ited Result - Final [facility] [address] [place] [address], [facility] [address] [place] [address] * LDA ANE ENDOTRACHEAL AIRWAY (10/30/2024 10:56 [...] ETT location: oral VL device: glide scope Napoleon scope blade size: 3 Tube size: 7 [...] ANESTHESIA ORDERABLES Final Re sult * NM [place] Node Injection Only (10/30/2024 8:59 AM CDT) [...] DOPPLER COLOR AND CONTRAST (10/09/2024 11:54 AM FINISHER BRUSH) Ejection Fraction 65 MC CV EIMS Sinus [...] Laterality Modality Echocardiography 10/09/2024 10:3 3 AM FINISHER BRUSH Impressions 10/09/2024 11:57 AM FINISHER BRUSH LEFT VENTRICLE:Normal left ventricular chamber size. Abnormal [...] saline contrast injection. Patent foramen ovale with epvww-xu-lzzr shunt , 30 or greater bubbles seen in the left-sided chambers with Valsalva Maneuver.(almost complete opacification of the left-sided cavities after Valsalva clip 115) No intracardiac mass or thrombus, but the left atrial appendage cannot be visualized adequately with transthoracic echo to exclude thrombus in this location. No pericardial effusion. For the complete report, see the Order-Level Documents. Narrative 10/09/2024 11:57 AM FINISHER BRUSH For the complete report, see the Order-Level [...] agitated salinecontrast injection. Patent foramen ovale with ezdtc-oq-svhe shunt , 30 orgreater bubbles seen in [...] sult * Thrombophilia Profile (10/09/2024 8:59 AM FINISHER BRUSH) [facility] Prothrombin Time (PT), P 10.2 9.4 - 12.5 sec 10/09/2024 11:33 AM FINISHER BRUSH DTL INR 0.9 0.9 - 1.1 10/09/2024 11:33 AM FINISHER BRUSH DTL Comment: ----ADDITIONAL INFORMATION---- Standard intensity warfarin therapeutic range: 2.0 to 3.0 High intensity warfarin therapeutic range: 2.5 to 3.5 Activated Partial Thrombopl Time, P 26 25 - 37 sec 10/09/2024 11:34 AM FINISHER BRUSH DTL DRVVT Screen Ratio 0.93 <1.20 ratio 10/09/2024 11:32 AM FINISHER BRUSH DTL Thrombin Time (Bovine), P 22.9 15.8 - 24.9 sec 10/09/2024 11:32 AM FINISHER BRUSH DTL Fibrinogen, [place], P 317 200 - 500 mg/dL 10/09/2024 10:58 AM FINISHER BRUSH DTL Comment: ----ADDITIONAL INFORMATION---- This test has been modified from the treasury associate's instructions. Its performance characteristics were determined by [facility] in a manner consistent with CLIA requirements. This test has not been cleared or approved by the U.S. Food and Drug Administration. D-DIMER, P 321 <=500 ng/mL FEU 10/09/2024 11:33 AM FINISHER BRUSH DTL Comment: ----ADDITIONAL INFORMATION---- D-dimer values less than or equal to 500 ng/mL fibrinogen equivalent units (FEU) may be used in conjunction with clinical pre-test probability to exclude deep vein thrombosis (DVT) and/or pulmonary embolism (PE). Antithrombin Activity, P 100 80 - 130 % 10/09/2024 11:05 AM FINISHER BRUSH DTL Comment: ----ADDITIONAL INFORMATION---- This test has been modified from the treasury associate's instructions. Its performance characteristics were determined by [facility] in a manner consistent with CLIA requirements. This test has not been cleared or approved by the U.S. Food and Drug Administration. Protein C Activity, P 107 70 - 150 % 10/09/2024 11:30 AM FINISHER BRUSH DTL Comment: ----ADDITIONAL INFORMATION---- This test has been modified from the treasury associate's instructions. Its performance characteristics were determined by [facility] in a manner consistent with CLIA requirements. This test has not been cleared or approved by the U.S. Food and Drug Administration. Protein S Ag, Free, P 135 65 - 160 % 10/09/2024 10:59 AM FINISHER BRUSH DTL Comment: ----ADDITIONAL INFORMATION---- This test has been modified from the treasury associate's instructions. Its performance characteristics were determined by [facility] in a manner consistent with CLIA requirements. This test has not been cleared or approved by the U.S. Food and Drug Administration. APCRV Ratio 2.9 >or=2.3 10/09/2024 11:07 AM FINISHER BRUSH DTL Reviewed By Padma Sotne M.D. 10/11/2024 1:48 PM FINISHER BRUSH DTL Prothrombin [id number] Mutation, B Negative Negative 10/11/2024 9:31 AM FINISHER BRUSH DTL PTNT Reviewed By Capri Patel M.D. 10/11 9:31 AM FINISHER BRUSH DTL PTNT Interpretation This individual DOES NOT have the Prothrombin F2 c.*97G>A (legacy numbering [id number]) variant. Although the Prothrombin (F2 c.*97G>A) variant is absent, this individual may have other genetic and environmental risk factors for thrombosis. If indicated, consider genetic consultation and counseling for this individual and potentially affected family members regarding laboratory testing. 10/11/2024 9:31 AM FINISHER BRUSH DTL Comment: ----ADDITIONAL INFORMATION---- This test uses [...] developed and its performance characteristics determined by [facility] in a manner consistent with CLIA requirements. This test has not been cleared or approved by the U.S. Food and Drug Administration. Thrombophilia Interpretation IMPRESSION: No identifiable congenital or acquired thrombotic diathesis (thrombophilia) within limitations of current test repertoire. COMMENTS: No evidence of resistance to activated protein C (APC). Therefore, DNA-based testing for the factor V Leiden F5 c.1601G>A; p.Kcn947Ocl (legacy numbering [id number]) variant was not performed. A normal APC resistance ratio has a greater than 99% negative predictive value for factor V Leiden, F5 c.1601G>A; p.Cay343Lnc variant. No evidence of lupus anticoagulant (LAC), dysfibrinogenem ia, intravascular coagulation and fibrinolysis (ICF/DIC). No deficiencies of antithrombin, protein C, or protein S. DNA-based testing demonstrates that this individual DOES NOT have the Prothrombin F2 c.*97G>A (legacy numbering [id number]) variant. Separately performed and reported testing demonstrates normal serum anticardiolipin antibodies and beta-2 glycoprotein I antibodies (IgG and IgM). This testing was performed at [facility] (CLIA Number [id number]), [address] [place] [address]. 10/11/2024 1:48 PM FINISHER BRUSH DTL Blood (Blood, Venous) 10/09/2024 8:59 AM FINISHER BRUSH 10/09/2024 9:29 AM FINISHER BRUSH Narrative [facility] - 10/11/2024 1:48 PM FINISHER BRUSH Specimen Information: Specimen ID: [id number] Specimen Type: Blood Specimen Collection Start Date: 10/09/2024 8:59 AM Specimen Received Date: 10/09/2024 9:29 AM Specimen ID: [id number] Specimen Type: Blood Specimen Collection Start Date: 10/09/2024 8:59 AM Specimen Received Date: 10/09/2024 9:29 AM Specimen ID: [id number] Specimen Type: Blood Specimen Collection Start Date: 10/09/2024 8:59 AM Specimen Received Date: 10/09/2024 9:29 AM Specimen ID: [id number] Specimen Type: Blood Specimen Collection Start Date: 10/09/2024 8:59 AM Specimen Received Date: 10/09/2024 9:55 AM Specimen ID: [id number] Specimen Type: Blood Specimen Collection Start Date: 10/09/2024 8:59 AM Specimen Received Date: 10/09/2024 9:29 AM Specimen ID: [id number] Specimen Type: Blood Specimen Collection Start Date: 10/09/2024 9:00 AM Specimen Received Date: 10/09/2024 9:29 AM us Tamika Santiago M.D. LAB BLOOD NON ADD-ON Final Re sult Performing Organization Address City/[facility]/ZIP Co de Phone Number [facility] [address] [place] [address], [facility] [address] [place] [address] DTL 200 [facility] [address] [place] [address] * Beta-2 Glycoprotein 1 Antibodies, IgG and IgM (10/09/2024 8:59 AM FINISHER BRUSH) [facility] Beta 2 GP1 Ab IgG, S <9.4 <15.0 (Negative) [facility] 10/10/2024 3:07 PM FINISHER BRUSH [facility] Beta 2 GP1 Ab IgM, S <9.4 <15.0 (Negative) [facility] 10/10/2024 3:07 PM FINISHER BRUSH [facility] Blood (Blood, Venous) 10/09/2024 8:59 AM FINISHER BRUSH 10/09/2024 11:52 AM FINISHER BRUSH Tamika Santiago M.D. LAB BLOOD ADD-ON Final Result [facility] [address] [place] [address] [facility] [address] [place] [address] * Phospholipid (Cardiolipin) Antibodies, IgG and IgM (10/09/2024 8:59 AM FINISHER BRUSH) Phospholipid Ab IgM, S <9.4 <15.0 (Negative) [facility] 10/10/2024 7:[address] [facility] Phospholipid Ab IgG, S <9.4 <15.0 (Negative) [facility] 10/10/2024 7:20 PM FINISHER BRUSH [facility] Blood (Blood, Venous) 10/09/2024 8:59 AM FINISHER BRUSH 10/09/2024 12:24 PM FINISHER BRUSH us Tamika Santiago M.D. LAB BLOOD ADD-ON Final Result [facility] [address] [place] [address] [facility] [address] [place] [address] * BI Breast Diagnostic Right Post Procedure (09/15/2024 12:46 PM FINISHER BRUSH) Anatomical Region Laterality Modality Breast, Breast Imaging RST L OS, Breast Imaging ARZ LOS, Breast Imaging FLA LOS Right Mammography Impressions 09/15/2024 1:35 PM FINISHER BRUSH The biopsy clips are in the appropriate position. RECOMMENDATION: Please See Recent Biopsy Report ASSESSMENT: 12: Post Procedure Mammograms for Marker Placement Narrative 09/15/2024 1:35 PM FINISHER BRUSH EXAM: BI BREAST DIAGNOSTIC RIGHT POST PROCEDURE [...] Diagnostic Left Post Procedure (09/15/2024 12:46 PM FINISHER BRUSH) Anatomical Region Laterality Modality Breast, Breast Imaging RST L OS, Breast Imaging ARZ LOS, Breast Imaging FLA LOS Left Mammography Impressions 09/15/2024 1:24 PM FINISHER BRUSH The biopsy clip is in the appropriate position. RECOMMENDATION: Please See Recent Biopsy Report ASSESSMENT: 12: Post Procedure Mammograms for Marker Placement Narrative 09/15/2024 1:24 PM FINISHER BRUSH EXAM: BI BREAST DIAGNOSTIC LEFT POST PROCEDURE [...] Biopsy Left with Guidance (09/15/2024 12:30 PM FINISHER BRUSH) Anatomical Region Laterality Modality Breast, Breast Imaging [...] Kj Wong M.D. on 09/19/2024 1:37 PM FINISHER BRUSH ADDENDUM: AMENDMENT TO ADD PATHOLOGY AND CONCORDANCE RESULTS. PLEASE SEE SEPARATE PATHOLOGY REPORT FOR COMPLETE INFORMATION. 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 CATEGORY: Malignant RAD-PATH CONCORDANCE: Yes. ACR COMPLICATIONS: None. RECOMMENDATION: Surgical Consult Multidisciplinary management recommended for bilateral breast cancer. ASSESSMENT: 10: Pathology Malignant. Impressions 09/15/2024 12:45 PM FINISHER BRUSH Successful image-guided needle biopsy. When final pathology results are available a revised report will be issued which will include radiologic/pathologic concordance and recommendations. Please be aware that in discordant cases, surgical consultation may be recommended even with a benign pathology result. RECOMMENDATION: Waiting for Pathology ASSESSMENT: 7: Waiting for Pathology. EP Narrative 09/15/2024 12:45 PM FINISHER BRUSH EXAM: MR BREAST BIOPSY LEFT WITH GUIDANCE [...] medications. PATIENT EDUCATION: Provided by a care seafood service team member. Ready to learn, no apparent learning barriers [...] medications. PATIENT EDUCATION: Provided by a care seafood service team member. Ready to learn, noapparent learning barriers were [...] Additional Lesion with Guide (09/15/2024 12:28 PM FINISHER BRUSH) Anatomical Region Laterality Modality Breast, Breast Imaging RST L OS, Breast Imaging ARZ LOS, Breast Imaging FLA LOS Right Magnetic Resonance Addenda Addendum by Kj Wong M.D. on 09/18/2024 2:39 PM FINISHER BRUSH ADDENDUM: AMENDMENT TO ADD PATHOLOGY AND CONCORDANCE RESULTS. PLEASE SEE SEPARATE PATHOLOGY REPORT FOR COMPLETE INFORMATION. PATHOLOGY: Fibrocystic changes including dilated ducts, fragment suggestive of intraductal papilloma, focal usual ductal hyperplasia and background dense stromal fibrosis. CATEGORY: Benign RAD-PATH CONCORDANCE: Yes. ACR COMPLICATIONS: None. RECOMMENDATION: Individualized Recommendation Multidisciplinary management recommended for known right breast cancer. ASSESSMENT: 8: Pathology Benign. Impressions 09/15/2024 12:57 PM FINISHER BRUSH Successful image-guided needle biopsy. When final pathology results are available a revised report will be issued which will include radiologic/pathologic concordance and recommendations. Please be aware that in discordant cases, surgical consultation may be recommended even with a benign pathology result. RECOMMENDATION: Waiting for Pathology ASSESSMENT: 7: Waiting for Pathology. EP Narrative 09/15/2024 12:57 PM FINISHER BRUSH EXAM: MR BREAST BIOPSY RIGHT ADDITIONAL LESION [...] medications. PATIENT EDUCATION: Provided by a care seafood service team member. Ready to learn, no apparent learning barriers were identified. Post-procedure care explained; patient expressed understanding of the content. Bina Vasques M.D. IM MRI PROCEDURES Edited R esult - Final * MR Breast Biopsy Right with Guidance (09/15/2024 12:27 PM FINISHER BRUSH) Anatomical Region Laterality Modality Breast, Breast Imaging [...] Kj Wong M.D. on 09/18/2024 2:22 PM FINISHER BRUSH ADDENDUM: AMENDMENT TO ADD PATHOLOGY AND CONCORDANCE RESULTS. PLEASE SEE SEPARATE PATHOLOGY REPORT FOR COMPLETE INFORMATION. PATHOLOGY: Invasive lobular carcinoma, preliminary [place] grade II (of III), measuring 4 mm in greatest linear extent. Lobular carcinoma in situ (LCIS), classic and focal pleomorphic types. CATEGORY: Malignant RAD-PATH CONCORDANCE: Yes. ACR COMPLICATIONS: None. RECOMMENDATION: Surgical Consult ASSESSMENT: 10: Pathology Malignant. Impressions 09/15/2024 12:45 PM FINISHER BRUSH Successful image-guided needle biopsy. When final pathology results are available a revised report will be issued which will include radiologic/pathologic concordance and recommendations. Please be aware that in discordant cases, surgical consultation may be recommended even with a benign pathology result. RECOMMENDATION: Waiting for Pathology ASSESSMENT: 7: Waiting for Pathology. EP Narrative 09/15/2024 12:45 PM FINISHER BRUSH EXAM: MR BREAST BIOPSY RIGHT WITH GUIDANCE [...] medications. PATIENT EDUCATION: Provided by a care seafood service team member. Ready to learn, no apparent learning barriers [...] medications. PATIENT EDUCATION: Provided by a care seafood service team member. Ready to learn, noapparent learning barriers were [...] for Pathology. EP us Bina Vasques M.D. [facility] PROCEDURES Edited R esult - Final * Surgical Pathology (09/15/2024 11:52 AM FINISHER BRUSH) Only the most recent of3 resultswithin the time period is included. 09/18/2024 2:20 PM FINISHER BRUSH DTL Participated in the Interpretation Colten Cagle M.D.-Pathology Resident 09/18/2024 2:20 PM FINISHER BRUSH DTL Report electronically signed by Chris GilbertBNataliaS., Ph.D. I verify that I have examined all relevant slides/materials for the specimen(s) and rendered or confirmed the diagnosis. Seen in consultation with: Carly Durbin M.D. 09/18/2024 2:20 PM FINISHER BRUSH DTL Gross Description Received in formalin labeled with patient's name, medical record number, and breast, right, site 2 are multiple pale rutherford fibroadiposetissue cores and three fragments, ranging from 0.1-1.7 cm in length and measuring 0.3 cm in average diameter. The specimens aresubmitted EN toto as follows: A1-A6: Two cores in each cassette A7: Three fragments Grossed by LMB. 09/18/2024 2:20 PM FINISHER BRUSH DTL Interpretation FINAL DIAGNOSIS Breast, Right site [...] assessment of this case. 09/18/2024 2:20 PM FINISHER BRUSH DTL Biopsy (Breast, Right) 09/15/2024 9:47 AM FINISHER BRUSH Bina Vasques M.D. LAB SURG PATH ORDERABLES Fi nal Result [facility] [address] [place] [address], [facility] [address] [place] [address] * EVENT MONITOR - ALL CHARGES (09/09/2024 11:59 PM FINISHER BRUSH) 08/11/2024 10:5 2 PM FINISHER BRUSH Narrative LEANNA ARGUETA - 09/10/2024 12:40 PM FINISHER BRUSH 1. The patient was monitored from 08/11/2024 [...] supraventricular tachycardia was noted at 116 bpm. Living Coach: LINDA Roland / LINDA Farooq Procedure Note [...] supraventricular tachycardia was noted at 116 bpm. Living Coach: LINDA Roland / LINDA Farooq Tre Dumas M.D. CV CARDIAC SERVICES PROCEDU RES Final Result LEANNA ARGUETA NA * XR MAMMO POST CLIP PLCMT RT-Outside Mammogram (08/15/2024 1:50 PM FINISHER BRUSH) Narrative [facility] - 08/23/2024 1:52 PM FINISHER BRUSH This order has been created and auto-finalized [...] Most Recently Relevant to Health Maintenance Insurance [facility] Advance Directives For more information, please contact: [phone] * Full Code (Latest Code Status on File) Date Activated Date Inactivated Comments 10/30/2024 6:22 PM 10/31/2024 5:13 PM Question Answer Comments Full Code: Discussed * Full Code Date Activated Date Inactivated Comments 10/30/2024 7:31 AM 10/30/2024 6:22 PM Question Answer Comments Full Code: Not Discussed Due to: Not medically appropriate Care Teams Sheepskin Pickler Relationship Specialty Start Date End Date Elsewhere, Pcp PCP - General Internal Medicine 07/25/24
--- OUTSIDE RECORDS SUMMARY | 2024-12-06 21:44 | XMS_ITS | Encounter Summary ---
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 [address] [place] [phone] Phone: tel: fax: [facility] Referral ID Status Reason Start Date Expiration Date Visits Re quested Visits Authorized [id number] Closed 11/06/2024 05/08/2026 1 1 Scheduling Instructions please group appointments if possible Encounter Details Date Type Department Care Team (Late st Contact Info) Description 11/06/2024 Orders Only Division of Breast and Melanoma Surgical Oncology in [place], [place] [address] [place] [phone] Gail Monterroso RNataliaNNatalia [address] [place] [phone] 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 I have a [facility] place to live 10/30/2024 Comments No Sex and Gender Information Value Date Recorded Sex Assigned at Female 07/25/2024 9:49 AM SEPARATOR OPERATOR Legal Sex Female 6:01 PM SEPARATOR OPERATOR Gender Identity Female 07/25/2024 9:49 AM SEPARATOR OPERATOR Sexual Orientation Straight 07/25/2024 9: 49 AM SEPARATOR OPERATOR documented as of this encounter Plan of Treatment Upcoming Encounters Date Type Department Care Team (Late st Contact Info) Description 12/07/2024 10:15 AM CDT Appointment Department of Radiation Oncology in [place], [place] [address] [place] [phone] Tim Navarro M.D., Ph.D. [address] [place] [phone] 12/07/2024 11:30 AM CDT Appointment Department of Radiation Oncology in [place], [place] [address] [place] [phone] Tim Navarro M.D., Ph.D. [address] [place] [phone] Christy Wade R.N. [address] [place] [phone] 12/07/2024 12:20 PM CDT Appointment Department of Radiology, [facility], in [place], [place] [address] [place] [phone] Meghna Soto M.B., B.Ch. [address] [place] [phone] 12/07/2024 2:40 PM CDT Office Visit Department of Oncology in [place], [place] [address] [place] [phone] Meghna Soto M.B., B.Ch. [address] [place] [phone] 12/08/2024 8:00 AM CDT Telemedicine Department of Oncology in [place], [place] [address] [place] [phone] Haim Mueller, KRISSY, C.N.P., D.N.P. [address] [place] [phone] Brooklyn Lombardi P.A.-C., M.S. [address] [place] [phone] 12/15/2024 10:00 AM CDT Virtual Visit Department of Cardiovascular Medicine in [place], [place] [address] [place] [phone] Soto Ta M.D., Ph.D. [address] [place] [phone] 02/05/2025 9:30 AM CDT Infusion Department of Infusion Therapy in [place], [place] [address] [place] [phone] Meghna Soto M.B., B.Ch. [address] [place] [phone] Scheduled Referrals Name Type Priority Associated Diagnoses [...] as of this encounter Care Teams It Security Consulting Director Relationship Specialty Start Date End Date Elsewhere, Pcp PCP - General Internal Medicine 07/25/24 documented as of this encounter
--- OUTSIDE RECORDS SUMMARY | 2024-12-06 21:44 | XMS_ITS | Encounter Summary ---
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 [address] Phone: tel: fax: Referral ID Status Reason Start Date Expiration Date Visits Re quested Visits Authorized [id number] 1 1 Encounter Details Date Type Department Care Team ([facility] Contact Info) Description 10/30/2024 9:05 AM CDT - 10/30/2024 4:21 PM CDT Surgery [facility]IN OR [address] [place] [address] [address] [place] [address] BILATERAL SIMPLE MASTECTOMY. Social History Tobacco Use Types Packs/Day Years Used Date Smoking Tobacco: Never Passive Smoke Exposure: Past Smokeless Tobacco: Never Alcohol Use Standard Drinks/Week Comments Not Currently 0 (1 standard drink = 0.6 oz pur e alcohol) [facility] Utilities Answer Date Recorded In the past 12 months has th e [employer], gas, oil, or water [employer] threatened to shut off services in your [...] living situation today? I have a [facility] place to live 10/30/2024 Comments No Sex and Gender Information Value Date Recorded Sex Assigned at Female 07/25/2024 9:49 AM DEEP SUBMERGENCE VEHICLE CREWMEMBER Legal Sex Female 6:01 PM DEEP SUBMERGENCE VEHICLE CREWMEMBER Gender Identity Female 07/25/2024 9:49 AM DEEP SUBMERGENCE VEHICLE CREWMEMBER Sexual Orientation Straight 07/25/2024 9: 49 AM DEEP SUBMERGENCE VEHICLE CREWMEMBER documented as of this encounter Last Filed [...] PM CDT DISCHARGE SUMMARY BRIEF OVERVIEW Hospital: [facility] Discharge Provider: Brie Durant M.D. Primary Team: [...] (HCC) HOSPITAL COURSE Maryam Ayers presented to [facility] for bilateral total mastectomy, right axillary [...] through Care Everywhere. * Acetaminophen (By mouth) (Lithuanian) * Apixaban (By mouth) (Lithuanian) * Ondansetron (By mouth, Into the mouth) (Lithuanian) * Oxycodone, Rapid Release (By mouth) (Lithuanian) * Senna (By mouth) (Lithuanian) documented in this encounter Medications at Time [...] Eliquis [place] 6-[place] [phone] with questions. Anderson Cedillo, PharmNataliaD., R.Ph. * [...] [place] [phone] with any questions. * Kath Mendoza, PharmDarlene., [...] belongings. Problem: Risk for Compromised Skin Integrity-Other Rn Clinical Documentation(s) Goal: Risk for Compromised Skin Integrity-Other Rn Clinical Documentation(s) Outcome: Adequate for Discharge Problem: PAIN - [...] Quadrant Female Right (HCC) Left breast DCIS Flame Channeler A engineer first assistant actively participated and [...] margin re-excision: none Right Axilla Procedure(s) Right [place] Lymph Node Biopsy: SLN mapping agents: Tc-99 sulfur colloid periareolar by radiology day of operation and blue dye notused Incision: performed through breast incision Depth of sentinel node(s): deep - clavipectoral fascia was divided to identify the SLNs Analysis of sentinel nodes: permanent section pending Commission on Cancer Right [place] Lymph Node Biopsy Critical Element Summary Operation [...] N/A Surgeon: Brie Durant MD Cosurgeon: None. Flame Channeler: Mor Luu MD Additional Automotive Light Mechanic: HOLLIE Ritchie Type of Procedure: The patient [...] to enter the deep axilla. With the [place] counter, 2 hot spots were identified. They [...] Breast Upper Outer Quadrant Female Right (HCC) Flame Channeler A engineer first assistant actively participated and [...] and then used TXA topically. X2 15 mongolian drains were placed. We then injected the [...] Breast Upper Outer Quadrant Female Right (HCC) Flame Channeler A engineer first assistant actively participated and [...] 11:01 AM CDT Maryam Ayers presented to [facility] for bilateral total mastectomy, right axillary [...] CDT Appointment Department of Radiation Oncology in [address] [phone] Tim Navarro M.D., Ph.D. [address] [place] [phone] 12/07/2024 11:30 AM CDT Appointment Department of Radiation Oncology in [address] [phone] Tim Navarro M.D., Ph.D. [address] [place] [phone] Christy Wade R.N. [address] [place] [phone] 12/07/2024 12:20 PM CDT Appointment Department of Radiology, [facility], in [address] [phone] Meghna Soto M.B., B.Ch. [address] [place] [phone] 12/07/2024 2:40 PM CDT Office Visit Department of Oncology in [address] [phone] Meghna Soto M.B., B.Ch. [address] [place] [phone] 12/08/2024 8:00 AM CDT Telemedicine Department of Oncology in [place], [place] [address] [place] [phone] Haim Mueller, KRISSY, C.N.P., D.N.P. [address] [place] [phone] Brooklyn Lombardi P.A.-C., M.S. [address] [place] [phone] 12/15/2024 10:00 AM CDT Virtual Visit Department of Cardiovascular Medicine in [place], [place] [address] [place] [phone] Soto Ta M.D., Ph.D. [address] [place] [phone] 02/05/2025 9:30 AM CDT Infusion Department of Infusion Therapy in [place], [place] [address] [place] [phone] Meghna Soto M.B., B.Ch. [address] [place] [phone] documented as of this encounter Procedures Procedure [...] for frozen and permanent sections. Grossed by Dapnhie Matthews M.S., HOLLIE([facility]). C. Received fresh labeled right breast total [...] 60% adipose and 40% fibrocystic tissues, grossly. Shop Welder tissue submitted for frozen and permanent sections. After clinical evaluation, residual tissue is procured for IRB No. [id number]. Grossed by Av Spence M.S., PA([facility]). D. Received fresh labeled left breast [...] fibrous tissue and 40% adipose tissue, grossly. Shop Welder tissue submitted for frozen and permanent sections. After clinical evaluation, residual tissue is procured for IRB No. [id number]. Grossed by Daphnie Matthews M.S., PA([facility]). E. Received fresh labeled right breast lateral tissue is a 43 g aggregate of fibroadipose tissue and skin. No masses identified. Shop Welder tissue submitted for permanent sections. Grossed by Av Spence M.S., HLOLIE([facility]). 11/02/2024 11:53 AM CDT METH Block [...] [place] Signed by Cezar Herrera M.D. 11/13/2024 [...] Breast, right, total mastectomy: Invasive lobular carcinoma, Mcbain grade 2 (of 3), forming multiple (2) [...] Histologic Type: Invasive lobular carcinoma Histologic Grade (Mcbain Histologic Score) Glandular (Acinar)/Tubular Differentiation: Score 3 [...] ns present in non-neoplastic tissue Residual Cancer Patterson (RCB) Calculation: Not applicable Margins Margin Status [...] and 2 long lateral Tissue (Lymph Node, [place]) 10/30/2024 12:58 PM CDT Tissue (Lymph Node, [place]) 10/30/2024 1:00 PM CDT Tissue (Breast, Right) 10/30/2024 3:18 PM CDT us Brie Durant M.D. LAB SURG PATH ORDERABLES Ed ited Result - Final [facility] [address] [place] [address], [facility] METH [address] [place] [address] documented in this encounter Visit Diagnoses Diagnosis [...] documented as of this encounter Care Teams Piping Drafter Relationship Specialty Start Date End Date Elsewhere, Pcp PCP - General Internal Medicine 07/25/24 documented as of this encounter
--- OUTSIDE RECORDS SUMMARY | 2024-12-06 21:44 | XMS_ITS | Encounter Summary ---
Author Organization [facility] Address [address] [place] [address] Care Team Providers Care Tube Dispatcher Name Role Phone Elsewhere, Pcp Primary [...] drink = 0.6 oz pur e alcohol) [facility] Utilities Answer Date Recorded In the [...] Date Recorded Employment status Working with temporary 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 I [facility] to live 10/30/2024 Comments No Sex and Gender Information Value Date Recorded Sex Assigned at Female 07/25/2024 9:49 AM RESIDENTIAL CAREGIVER Legal Sex Female 6:01 PM RESIDENTIAL CAREGIVER Gender Identity Female 07/25/2024 9:49 AM RESIDENTIAL CAREGIVER Sexual Orientation Straight 07/25/2024 9: 49 AM RESIDENTIAL CAREGIVER documented as of this encounter Plan of Treatment Upcoming Encounters Date Type Department Care Team (Late st Contact Info) Description 12/07/2024 10:15 AM CDT Appointment Department of Radiation Oncology in [place], [place] [address] [place] [phone] Tim Navarro M.D., Ph.D. [address] [place] [phone] 12/07/2024 11:30 AM CDT Appointment Department of Radiation Oncology in [place], [place] [address] [place] [phone] Tim Navarro M.D., Ph.D. [address] [place] [phone] Christy Wade R.N. [address] [place] [phone] 12/07/2024 12:20 PM CDT Appointment Department of Radiology, [facility], in [place], [place] [address] [place] [phone] Meghna Soto M.B., B.Ch. [address] [place] [phone] 12/07/2024 2:40 PM CDT Office Visit Department of Oncology in [place], [place] [address] [place] [phone] Meghna Soto M.B., B.Ch. [address] [place] [phone] 12/08/2024 8:00 AM CDT Telemedicine Department of Oncology in [place], [place] [address] [place] [phone] Haim Mueller, KRISSY, C.N.P., D.N.P. [address] [place] [phone] Brooklyn Lombardi, P.Philippe.-C., M.S. [address] [place] [phone] 12/15/2024 10:00 AM CDT Virtual Visit Department of Cardiovascular Medicine in [place], [place] [address] [place] [phone] Soto Ta M.D., Ph.D. [address] [place] [phone] 02/05/2025 9:30 AM CDT Infusion Department of Infusion Therapy in [place], [place] [address] [place] [phone] Meghna Soto M.B., B.Ch. [address] [place] [phone] documented as of this encounter Procedures Procedure [...] documented as of this encounter Care Teams Tube Dispatcher Relationship Specialty Start Date End Date Elsewhere, Pcp PCP - General Internal Medicine 07/25/24 documented as of this encounter
--- OUTSIDE RECORDS SUMMARY | 2024-12-06 21:44 | XMS_ITS | Encounter Summary ---
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 [address] [place] [address] Phone: tel: fax: Referral ID Status Reason Start Date Expiration Date Visits Re quested Visits Authorized [id number] 1 1 Encounter Details Date Type Department Care Team (Latest Contact Info) Description 10/30/2024 7:30 AM CDT - 10/30/2024 11:59 PM CDT Hospital Encounter Department of Radiology, [facility], in [place], [place] [address] [place] [address] Brie Durant M.D. [address] [place] [phone] Malignant Neoplasm Of Breast Upper [...] has e electric, gas, oil, or water [employer] threatened to shut off services in your [...] Date Recorded Employment status Working with temporary [employer] 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 [facility] live 10/30/2024 Comments No Sex and Gender Information Value Date Recorded Sex Assigned at Female 07/25/2024 9:49 AM NAVIGATION TEACHER Legal Sex Female 6:01 PM NAVIGATION TEACHER Gender Identity Female 07/25/2024 9:49 AM NAVIGATION TEACHER Sexual Orientation Straight 07/25/2024 9: 49 AM NAVIGATION TEACHER documented as of this encounter Medications [...] oxyCODONE (Roxicodone) 5 mg immediate release tabletIndications:Ac mechoopda Pain Take 1 tablet (5 mg total) by mouth every 4 (four) hours as needed for pain Indication: Acute Pain. 10 tablet 10/31/2024 3:20 PM CDT 10/31/2024 5 documented as of this encounter Plan of Treatment Upcoming Encounters Date Type Department Care Team (Late st Contact Info) Description 12/07/2024 10:15 AM CDT Appointment Department of Radiation Oncology in [place], [place] [address] [place] [phone] Tim Navarro M.D., Ph.D. [address] [place] [phone] 12/07/2024 11:30 AM CDT Appointment Department of Radiation Oncology in [place], [place] [address] [place] [phone] Tim Navarro M.D., Ph.D. [address] [place] [phone] Christy Wade R.N. [address] [place] [phone] 12/07/2024 12:20 PM CDT Appointment Department of Radiology, [facility], in [place], [place] [address] [place] [phone] Meghna Soto M.B., B.Ch. [address] [place] [phone] 12/07/2024 2:40 PM CDT Office Visit Department of Oncology in [place], [place] [address] [place] [phone] Meghna Soto M.B., B.Ch. [address] [place] [phone] 12/08/2024 8:00 AM CDT Telemedicine Department of Oncology in [place], [place] [address] [place] [phone] Haim Mueller, KRISSY, C.N.P., D.N.P. [address] [place] [phone] Brooklyn Lombardi P.A.-C., M.S. [address] [place] [phone] 12/15/2024 10:00 AM CDT Virtual Visit Department of Cardiovascular Medicine in [place], [place] [address] [place] [phone] Soto Ta M.D., Ph.D. [address] [place] [phone] 02/05/2025 9:30 AM CDT Infusion Department of Infusion Therapy in [place], [place] [address] [place] [phone] Meghna Soto M.B., B.Ch. 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
--- OUTSIDE RECORDS SUMMARY | 2024-12-06 21:44 | XMS_ITS | Encounter Summary ---
Author Organization [facility] Address [address] [place] [address] Care Team Providers Care Emissions Engineer Name Role Phone Elsewhere, Pcp Primary Care Provider Unavailabl e Encounter Details Date Type Department Care Team (Late st Contact Info) Description 11/02/2024 Clinical Communication Division of Breast and Melanoma Surgical Oncology in [place], [place] [address] [place] [address] Brie Durant M.D. [address] [place] [phone] Social History Tobacco Use Types Packs/Day Years Used Date Smoking Tobacco: Never Passive Smoke Exposure: Past Smokeless Tobacco: Never Alcohol Use Standard Drinks/Week Comments Not Currently 0 (1 standard drink = 0.6 oz pur e alcohol) [facility] Utilities Answer Date Recorded In the past 12 months has [employer], gas, oil, or water [employer] threatened to shut off services in your [...] Date Recorded Employment status Working with temporary [employer] 07/25/2024 Housing Stability Answer Date Recorded What is your living situation today? I have a [facility] place to live 10/30/2024 Comments No Sex and Gender Information Value Date Recorded Sex Assigned at Female 07/25/2024 9:49 AM PRENATAL TEACHER Legal Sex Female 6:01 PM PRENATAL TEACHER Gender Identity Female 07/25/2024 9:49 AM PRENATAL TEACHER Sexual Orientation Straight 07/25/2024 9: 49 AM PRENATAL TEACHER documented as of this encounter Miscellaneous Notes [...] CDT Appointment Department of Radiation Oncology in [place], [place] [address] [place] [phone] Tim Navarro M.D., Ph.D. [address] [place] [phone] 12/07/2024 11:30 AM CDT Appointment Department of Radiation Oncology in [place], [place] [address] [place] [phone] Tim Navarro M.D., Ph.D. [address] [place] [phone] Christy Wade R.N. [address] [place] [phone] 12/07/2024 12:20 PM CDT Appointment Department of Radiology, [facility], in [place], [place] [address] [place] [phone] Meghna Soto M.B., B.Ch. [address] [place] [phone] 12/07/2024 2:40 PM CDT Office Visit Department of Oncology in [place], [place] [address] [place] [phone] Meghna Soto M.B., B.Ch. [address] [place] [phone] 12/08/2024 8:00 AM CDT Telemedicine Department of Oncology in [place], [place] [address] [place] [phone] Haim Mueller APRN, C.N.P., D.N.P. [address] [place] [phone] Brooklyn Lombardi P.A.-C., M.S. [address] [place] [phone] 12/15/2024 10:00 AM CDT Virtual Visit Department of Cardiovascular Medicine in [place], [place] [address] [place] [phone] Soto Ta M.D., Ph.D. [address] [place] [phone] 02/05/2025 9:30 AM CDT Infusion Department of Infusion Therapy in [place], [place] [address] [place] [phone] Meghna Soto M.B., B.Ch. [address] [place] [phone] documented as of this encounter Visit Diagnoses Not on filedocumented in this encounter Additional Health Concerns Assessment Noted Time PHQ-9 Depression Total Score: 3 10/28/19 25 9:43 AM CDT documented as of this encounter Care Teams Emissions Engineer Relationship Specialty Start Date End Date Elsewhere, Pcp PCP - General Internal Medicine 07/25/24 documented as of this encounter
--- OUTSIDE RECORDS SUMMARY | 2024-12-06 21:44 | XMS_ITS | Clinical Summary ---
Author Organization [facility] Address [address] [place] [address] Care Team Providers Care Cover Making Machine Operator Name Role Phone Shanelle Renee MD Primary Care Provide r Roxy Whaley RN Unavailable [phone] Kian English MD Unavailable [phone] Allergies Active Allergy Reactions Criticality Noted Date [...] pat ient 09/11/2024 Overview (09/11/2024): CHEK2 c.1100del (p.[id number]*15) Primary cancer of right breast 08/28/2024 Cancer Staging:Clinical stage from 08/28/2024:Stage IA(cT1b, cN0, cM0, G2, ER+, OH+, HER2-) - Signed by Kian English MD [...] Description 11/01/2024 10:40 AM CDT Office Visit [facility] [address] [place] [address] Alissa Matta PA Throat Problem (Wants strep test done ) 11/01/2024 Travel 10/30/[address] [facility] Scanner 1 scan: (1-Ord) [facility], SURGICAL PATHOLOGY, 10/30/2024 10/13/[address] [facility] Scanner 1 scan: (1-Ord) [facility], XR HAND LT MIN 3V, 10/13/2024 09/11/2024 Telephone [facility] [address] [place] [address] [place], [place], [facility] Results (Cancer genetic testing) from Last 3 Months Immunizations Immunization Administration Dates Next Due COVID-19 vaccine ([employer] NTech 30mcg/0.3mL) PF MDBrittaney 12/27/2020,12/06/2020 Hepatitis A [...] ca ncer Maternal Grandmother (Age 52) br [facility] ca Maternal Uncle Mother (Age 28) breast ca. 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 Peterson ie Delivery Location:[facility] Filed Vital Signs Vital Sign Reading Time [...] 165.1 cm (5' 5) 07/19/2024 12:03 PM MANAGER TRANSPLANT Body Mass Index 30.07 07/19/2024 12:03 PM MANAGER TRANSPLANT Plan of Treatment Health Maintenance Due Date [...] AM CDT SCAN-RADIOLOGY REPORT 10/13/2024 12:00 AM MANAGER TRANSPLANT XR MAMMO JULIEN UNI ADDL VIEWS RIGHT ELIAS 08/11/2024 1:43 PM MANAGER TRANSPLANT Abnormal mammogram LIPID PANEL W REFLEX MEASURED LDL Routine 07/19/2024 12:39 PM MANAGER TRANSPLANT Screening, lipid HPV HIGH RISK Routine 07/19/2024 12:33 PM MANAGER TRANSPLANT Pap smear for cervical cancer screening COLONOSCOPY SCREENING Routine 02/01/2023 12:00 AM CDT Encounter for screening colonoscopy ANTI HIV 1/2 Routine 08/28/2009 4:03 PM MANAGER TRANSPLANT Supervision of High-Risk of Elderly Multigravida (HC) from Last 3 Months or Most Recently Relevant to Health Maintenance Results * STREP A PCR (11/01/2024 11:05 AM CDT) GROUP A STREP Negative 11/01/2024 4:12 PM CDT [facility] Throat SPECIMEN FROM THROAT / Unknown Non-Blood / Unknown 11/01/2024 11:05 AM CDT 11/01/2024 11:05 AM CDT us Alissa BROWNE MICROBIOLOGY Final Result [facility] [address] [place] [address], * POCT Throat Rapid Strep (11/01/2024 10:55 AM CDT) POC, GROUP A STREP NOT DETECTED NOT DETECTED [facility] Comment: The [place] [employer] recommends that a throat culture be performed if a rapid group A streptococcus assay yields a negative result. [facility] recommends Streptococcus, Group A culture. Throat SPECIMEN FROM THROAT / Unknown 11/01/2024 10:55 AM CDT 11/01/2024 10:55 AM CDT Alissa BROWNE MICROBIOLOGY Final Result [facility] [address] [place] [address], [facility] [address] [place] [address] * SCAN-PATHOLOGY REPORT (10/30/2024 12:00 AM CDT) us Scanner OTHER Final Result * SCAN-RADIOLOGY REPORT (10/13/2024 12:00 AM MANAGER TRANSPLANT) Anatomical Region Laterality Modality Other us Scanner OTHER Final Result * XR MAMMO JULIEN UNI ADDL VIEWS RIGHT (08/11/2024 1:43 PM MANAGER TRANSPLANT) Anatomical Region Laterality Modality BREASTS, Breast Right Mammograph y Impressions 08/11/2024 4:06 PM MANAGER TRANSPLANT Suspicious 6 x 9 x 9 mm [...] your referring provider. Narrative 08/11/2024 4:06 PM MANAGER TRANSPLANT As a result of the [employer] [...] W REFLEX MEASURED LDL (07/19/2024 12:39 PM MANAGER TRANSPLANT) CHOLESTEROL, TOTAL 194 <200 mg/dL [facility] HDL CHOLESTEROL 46(L) > OR = 50 mg/dL [facility] TRIGLYCERIDES 203(H) <150 mg/dL [facility] Comment: If a non-fasting specimen was collected, consider repeat triglyceride testing on a fasting specimen if clinically indicated. Jayshree et al. J. of Clin. Lipidol. 2015;9:129-169. LDL-CHOLESTEROL 116(H) mg/dL (calc) [facility] Comment: Reference range: <100 Desirable range <100 mg/dL for primary prevention; <70 mg/dL for patients with CHD or diabetic patients with > or = 2 CHD risk factors. LDL-C is now calculated using the Luigi-Amaury calculation, which is a validated novel method providing better accuracy than the Friedewald equation in the estimation of LDL-C. Luigi SS et al. CAMELIA. 2013;310(19): 4917-3121 (http://education.Loccit (ML4D)/faq/VFP988) CHOL/HDLC RATIO 4.2 <5.0 (calc) [facility] NON HDL CHOLESTEROL 148(H) <130 mg/dL (calc) [facility] Comment: For patients with diabetes plus 1 major ASCVD risk factor, treating to a non-HDL-C goal of <100 mg/dL (LDL-C of <70 mg/dL) is considered a therapeutic option. Blood BLOOD SPECIMEN / Unknown 07/19/2024 12:39 PM MANAGER TRANSPLANT 07/19/2024 12:40 PM MANAGER TRANSPLANT Narrative [facility] - 07/20/2024 3:33 AM MANAGER TRANSPLANT FASTING:YES FASTING: YES [facility] Zhang CHEMISTRY Final Result Performing Organization Address City/[facility]/ZIP Co de Phone Number [facility] [address] [place] [address], [facility] [address] [place] [address] * HPV HIGH RISK (07/19/2024 12:33 PM MANAGER TRANSPLANT) TYPE 16 Negative Negative 07/22/2024 1:52 PM MANAGER TRANSPLANT [facility] TYPE 18 Negative Negative 07/22/2024 1:52 PM MANAGER TRANSPLANT [facility] OTHER HIGH RISK TYPES Negative Negative 07/22/2024 1:52 PM MANAGER TRANSPLANT [facility] Other (Cervical) Non-Blood / Unknown 07/19/2024 12:33 PM MANAGER TRANSPLANT 07/20/2024 3:18 PM MANAGER TRANSPLANT Narrative [facility] - 07/22/2024 1:52 PM MANAGER TRANSPLANT HPV types 16, 18, 31, 33, 35, 39, 45, 51, 52, 56, 58, 59, 66 and 68 DNA were undetectable or below the pre-set threshold. Methodology: Fuad Judie 4800 HPV Test Deann Vicente AVILA MICROBIOLOGY Final Result Performing Organization Address City/[facility]/ZIP Co de Phone Number [facility] [address] [place] [address], * COLONOSCOPY SCREENING (02/01/2023 12:00 AM CDT) Shanelle Renee MD GI PROCEDURE ORD Claudia l Result * ANTI HIV 1/2 [25808.0] (08/28/2009 4:03 PM MANAGER TRANSPLANT) ANTI HIV 1/2 Non-reacti ve [facility] Blood specimen (specimen) BLOOD SPECIMEN / Unknown 08/28/2009 4:03 PM MANAGER TRANSPLANT 08/28/2009 3:54 PM MANAGER TRANSPLANT us Lily Feliciano MD SEND OUTS Final Result [facility] INTERNAL ZIP [id number] [address] from Last 3 Months or Most Recently Relevant to Health Maintenance Insurance [employer] [facility] * Guarantor: Favian Patel Account Type Relation to Patient Date of Phone Billing Address Personal/Family [address] [place] [id number] Advance Directives * Full Code (Latest Code Status on File) Date Activated Date Inactivated Comments 03/21/2024 8:18 AM 03/22/2024 2:08 AM Question Answer Comments Code Status Discussion: Reviewed Preferences Care Teams Cover Making Machine Operator Relationship Specialty Start Date End Date Shanelle Renee MD [address] [place] [address] PCP - General Family Practice 01/25/18 Roxy Whaley RN [address] [phone] Nurse Navigator - Oncology Registered Nurse 08/24/24 Kian English MD [address] [phone] Surgery - Oncology 08/24/24
--- OUTSIDE RECORDS SUMMARY | 2024-12-06 21:44 | XMS_ITS | Encounter Summary ---
Author Organization [facility] Address [address] [place] [address] Care Team Providers Care Detail Technician Name Role Phone Elsewhere, Pcp Primary Care Provider Unavailabl e Encounter Details Date Type Department Care Team (Late st Contact Info) Description 11/01/2024 Clinical Communication Division of Breast and Melanoma Surgical Oncology in [place], [place] [address] [place] [address] Brie Durant M.D. 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 I have a [facility] place to live 10/30/2024 Comments No Sex and Gender Information Value Date Recorded Sex Assigned at Female 07/25/2024 9:49 AM BLIND TEACHER Legal Sex Female 6:01 PM BLIND TEACHER Gender Identity Female 07/25/2024 9:49 AM BLIND TEACHER Sexual Orientation Straight 07/25/2024 9: 49 AM BLIND TEACHER documented as of this encounter Miscellaneous [...] or other bacterial infection. Discussed with patient [id number] remedies for upper respiratory infection that are [...] CDT Appointment Department of Radiation Oncology in [address] [phone] Tim Navarro M.D., Ph.D. [address] [place] [phone] 12/07/2024 11:30 AM CDT Appointment Department of Radiation Oncology in [address] [phone] Tim Navarro M.D., Ph.D. [address] [place] [phone] Christy Wade R.N. [address] [place] [phone] 12/07/2024 12:20 PM CDT Appointment Department of Radiology, [facility], in [address] [phone] Meghna Soto M.B., B.Ch. [address] [place] [phone] 12/07/2024 2:40 PM CDT Office Visit Department of Oncology in [place], [place] [address] [place] [phone] Meghna Soto M.B., B.Ch. [address] [place] [phone] 12/08/2024 8:00 AM CDT Telemedicine Department of Oncology in [place], [place] [address] [place] [phone] Haim Mueller, KRISSY, C.N.P., D.N.P. [address] [place] [phone] Brooklyn Lombardi P.A.-C., M.S. [address] [place] [phone] 12/15/2024 10:00 AM CDT Virtual Visit Department of Cardiovascular Medicine in [place], [place] [address] [place] [phone] Soto Ta M.D., Ph.D. [address] [place] [phone] 02/05/2025 9:30 AM CDT Infusion Department of Infusion Therapy in [place], [place] [address] [place] [phone] Meghna Soto M.B., B.Ch. [address] [place] [phone] documented as of this encounter Visit Diagnoses Not on filedocumented in this encounter Additional Health Concerns Assessment Noted Time PHQ-9 Depression Total Score: 3 10/28/19 25 9:43 AM CDT documented as of this encounter Care Teams Detail Technician Relationship Specialty Start Date End Date Elsewhere, Pcp PCP - General Internal Medicine 07/25/24 documented as of this encounter
--- OUTSIDE RECORDS SUMMARY | 2024-12-06 21:44 | XMS_ITS | Encounter Summary ---
Author Organization [facility] Address [address] [place] [address] Care Team Providers Care Wet Process Miller Name Role Phone Elsewhere, Pcp Primary Care Provider Unavailabl e Reason for Referral * Outpatient (Routine) - Authorized Specialty Diagnoses / Procedures Referred By Safia garcia Referred To Contact Cardiovascular Disease Brady Martinez P.A.-C., M.S. [address] [place] [phone] Phone: tel: fax: [facility] Referral ID Status Reason Start Date Expiration Date V isits Requested Visits Authorized [id number] Authorized 10/30/2024 05/01/2026 1 1 Encounter Details Date Type Department Care Team (Late st Contact Info) Description 10/30/2024 Orders Only Department of Cardiovascular Medicine in [place], [place] [address] [place] [phone] Brady Martinez P.A.-C., M.S. [address] [place] [phone] Social History Tobacco Use Types Packs/Day Years Used Date Smoking Tobacco: Never Passive Smoke Exposure: Past Smokeless Tobacco: Never Alcohol Use Standard Drinks/Week Comments Not Currently 0 (1 standard drink = 0.6 oz pur e alcohol) [facility] Utilities Answer Date Recorded In [...] your living situation today? I have a [facility] place to live 10/30/2024 Comments No Sex and Gender Information Value Date Recorded Sex Assigned at Female 07/25/2024 9:49 AM FINANCIAL ANALYSIS MANAGER Legal Sex Female 6:01 PM FINANCIAL ANALYSIS MANAGER Gender Identity Female 07/25/2024 9:49 AM FINANCIAL ANALYSIS MANAGER Sexual Orientation Straight 07/25/2024 9: 49 AM FINANCIAL ANALYSIS MANAGER documented as of this encounter Plan of Treatment Upcoming Encounters Date Type Department Care Team (Late st Contact Info) Description 12/07/2024 10:15 AM CDT Appointment Department of Radiation Oncology in [place], [place] [address] [place] [address] Tim Navarro M.D., Ph.D. [address] [place] [phone] 12/07/2024 11:30 AM CDT Appointment Department of Radiation Oncology in [place], [place] [address] [place] [address] Tim Navarro M.D., Ph.D. [address] [place] [phone] Christy Wade R.N. [address] [place] [phone] 12/07/2024 12:20 PM CDT Appointment Department of Radiology, [facility], in [place], [place] [address] [place] [address] Meghna Soto M.B., B.Ch. [address] [place] [phone] 12/07/2024 2:40 PM CDT Office Visit Department of Oncology in [place], [place] [address] [place] [phone] Meghna Soto M.B., B.Ch. [address] [place] [phone] 12/08/2024 8:00 AM CDT Telemedicine Department of Oncology in [place], [place] [address] [place] [phone] Haim Mueller, KRISSY, C.N.P., D.N.P. [address] [place] [phone] Brooklyn Lombardi P.A.-C., M.S. [address] [place] [phone] 12/15/2024 10:00 AM CDT Virtual Visit Department of Cardiovascular Medicine in [place], [place] [address] [place] [phone] Soto Ta M.D., Ph.D. [address] [place] [phone] 02/05/2025 9:30 AM CDT Infusion Department of Infusion Therapy in [place], [place] [address] [place] [phone] Meghna Soto M.B., B.Ch. [address] [place] [phone] Scheduled Referrals Name Type Priority Associated Diagnoses Order Schedule Cardiovascular Disease office visit (clinic) [facility]; [facility] Outpatient Referral Routine Expect ed: 10/30/2024, Expires: 01/30/2026 documented as of this encounter Visit Diagnoses Not on filedocumented in this encounter Additional Health Concerns Assessment Noted Time PHQ-9 Depression Total Score: 3 10/28/19 25 9:43 AM CDT documented as of this encounter Care Teams Wet Process Miller Relationship Specialty Start Date End Date Elsewhere, Pcp PCP - General Internal Medicine 07/25/24 documented as of this encounter
--- OUTSIDE RECORDS SUMMARY | 2024-12-06 21:44 | XMS_ITS | Encounter Summary ---
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 [address] [place] [address] Phone: tel: fax: Referral ID Status Reason Start Date Expiration Date Visits Re quested Visits Authorized [id number] 1 1 Encounter Details Date Type Department Care Team (Latest Contact Info) Description 10/30/2024 6:43 AM CDT - 10/31/2024 3:13 PM CDT Hospital Encounter [facility], [facility] [place], [facility], Sixth Floor [address] [place] [phone] Brie Durant M.D. 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 I have a [facility] place to live 10/30/2024 Comments No Sex and Gender Information Value Date Recorded Sex Assigned at Female 07/25/2024 9:49 AM CYANIDE POT HARDENER Legal Sex Female 6:01 PM CYANIDE POT HARDENER Gender Identity Female 07/25/2024 9:49 AM CYANIDE POT HARDENER Sexual Orientation Straight 07/25/2024 9: 49 AM CYANIDE POT HARDENER documented as of this encounter Last Filed [...] PM CDT DISCHARGE SUMMARY BRIEF OVERVIEW Hospital: [facility] Discharge Provider: Brie Durant M.D. [...] (HCC) HOSPITAL COURSE Maryam Ayers presented to [facility] for bilateral total mastectomy, right axillary [...] through Care Everywhere. * Acetaminophen (By mouth) (Bhutanese) * Apixaban (By mouth) (Bhutanese) * Ondansetron (By mouth, Into the mouth) (Bhutanese) * Oxycodone, Rapid Release (By mouth) (Bhutanese) * Senna (By mouth) (Bhutanese) documented in this encounter Medications at Time [...] Eliquis [place] 6-4 [place] [phone] with questions. Anderson Cedillo, PharmNataliaD., R.Ph. * [...] [place] [phone] with any questions. * Kath Mendoza, Kaitlynn, [...] belongings. Problem: Risk for Compromised Skin Integrity-Other Aircraft Engine Mechanic(s) Goal: Risk for Compromised Skin Integrity-Other Aircraft Engine Mechanic(s) Outcome: Adequate for Discharge Problem: PAIN - [...] Quadrant Female Right (HCC) Left breast DCIS Soda Tester A title assistant actively participated and was necessary for [...] margin re-excision: none Right Axilla Procedure(s) Right [place] Lymph Node Biopsy: SLN mapping agents: Tc-99 sulfur colloid periareolar by radiology day of operation and blue dye notused Incision: performed through breast incision Depth of sentinel node(s): deep - clavipectoral fascia was divided to identify the SLNs Analysis of sentinel nodes: permanent section pending Commission on Cancer Right [place] Lymph Node Biopsy Critical Element Summary Operation [...] N/A Surgeon: Brie Durant MD Cosurgeon: None. Soda Tester: Mor Luu MD Additional Bank Note Designer: HOLLIE Ritchie Type of Procedure: The patient [...] draped in standard sterile fashion. With the Palmview counter, a technetium hot spot was identified [...] The background count measured 23 with the Palmview counter. There were no palpable or visible [...] Breast Upper Outer Quadrant Female Right (HCC) Soda Tester A title assistant actively participated and was necessary for [...] and then used TXA topically. X2 15 uzbek drains were placed. We then injected the [...] Breast Upper Outer Quadrant Female Right (HCC) Soda Tester A title assistant actively participated and was necessary for [...] 11:01 AM CDT Maryamsaroj Ayers presented to [facility] for bilateral total mastectomy, right axillary [...] CDT Appointment Department of Radiation Oncology in [address] [phone] Tim Navarro M.D., Ph.D. [address] [place] [phone] 12/07/2024 11:30 AM CDT Appointment Department of Radiation Oncology in [place], [place] [address] [place] [phone] Tim Navarro M.D., Ph.D. [address] [place] [phone] Christy Wade R.N. [address] [place] [phone] 12/07/2024 12:20 PM CDT Appointment Department of Radiology, [facility], in [place], [place] [address] [place] [phone] Meghna Soto M.B., B.Ch. [address] [place] [phone] 12/07/2024 2:40 PM CDT Office Visit Department of Oncology in [place] [address] [place] [phone] Meghna Soto M.B., B.Ch. [address] [place] [phone] 12/08/2024 8:00 AM CDT Telemedicine Department of Oncology in [place], [place] [address] [place] [phone] Haim Mueller, KRISSY, C.N.P., D.N.P. [address] [place] [phone] Brooklyn Lombardi P.A.-C., M.S. [address] [place] [phone] 12/15/2024 10:00 AM CDT Virtual Visit Department of Cardiovascular Medicine in [place], [place] [address] [place] [phone] Soto Ta M.D., Ph.D. [address] [place] [phone] 02/05/2025 9:30 AM CDT Infusion Department of Infusion Therapy in [place], [place] [address] [place] [phone] Meghna Soto M.B., B.Ch. [address] [place] [phone] documented as of this encounter Procedures Procedure [...] permanent sections. Grossed by Daphnie Matthews M.S., [facility] C. Received fresh labeled right breast [...] 60% adipose and 40% fibrocystic tissues, grossly. Director Of Business Services tissue submitted for frozen and permanent sections. After clinical evaluation, residual tissue is procured for IRB No. [id number]. Grossed by Av Spence M.S., [facility] D. Received fresh labeled left breast [...] fibrous tissue and 40% adipose tissue, grossly. Director Of Business Services tissue submitted for frozen and permanent sections. After clinical evaluation, residual tissue is procured for IRB No. [id number]. Grossed by Daphnie Matthews M.S., HOLLIE([facility]). E. Received fresh labeled right breast lateral tissue is a 43 g aggregate of fibroadipose tissue and skin. No masses identified. Director Of Business Services tissue submitted for permanent sections. Grossed by Av Spence M.S., HOLLIE([facility]). 11/02/2024 11:53 AM CDT METH [...] [place] Signed by Cezar Herrera M.D. 11/13/2024 [...] ns present in non-neoplastic tissue Residual Cancer [place] (RCB) Calculation: Not applicable Margins Margin Status [...] and 2 long lateral Tissue (Lymph Node, [place]) 10/30/2024 12:58 PM CDT Tissue (Lymph Node, [place]) 10/30/2024 1:00 PM CDT Tissue (Breast, Right) 10/30/2024 3:18 PM CDT us Brie Durant M.D. LAB SURG PATH ORDERABLES Ed ited Result - Final [facility] [address] [place] [address], [facility] METH [address] [place] [address] documented in this encounter Visit Diagnoses Diagnosis [...] diarrhea 2106 (Given - Provider: Archana Santos R.N.) Continuous Medication Order 10/29/2024 10/30/2024 [...] documented as of this encounter Care Teams Roadway Technician Relationship Specialty Start Date End Date Elsewhere, Pcp PCP - General Internal Medicine 07/25/24 documented as of this encounter
--- OUTSIDE RECORDS SUMMARY | 2024-12-06 21:45 | XMS_ITS | Encounter Summary ---
Author Organization [facility] Address [address] [place] [phone] Care Team Providers Care Boat Rental Clerk Name Role Phone Elsewhere, Pcp Primary [...] Contrast Foster Mcclendon B.M., B.Ch., Ph.D. [address] [place] [phone] Phone: tel: fax: [facility] Referral ID Status Reason Start Date Expiration Date Visits Re quested Visits Authorized [id number] Closed 10/20/2024 01/20/2026 1 1 Encounter Details Date Type Department Care Team (Latest Contact Info) Description 11/08/2024 3:33 PM CDT - 11/08/2024 11:59 PM CDT Hospital Encounter Department of Radiology, [facility], in [place], [place] [address] [place] [phone] Foster Mcclendon B.M., B.Ch., Ph.D. 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) Discharge Disposition: Home or Self Care Social History Tobacco Use Types Packs/Day Years Used Date Smoking Tobacco: Never Passive Smoke Exposure: Past Smokeless Tobacco: Never Alcohol Use Standard Drinks/Week Comments Not Currently 0 (1 standard drink = 0.6 oz pur e alcohol) [facility] Utilities Answer Date Recorded In the [...] [facility] 10/30/2024 Comments No Sex and Gender Information Value Date Recorded Sex Assigned at Female 07/25/2024 9:49 AM ACTUARY Legal Sex Female 6:01 PM ACTUARY Gender Identity Female 07/25/2024 9:49 AM ACTUARY Sexual Orientation Straight 07/25/2024 9: 49 AM ACTUARY documented as of this encounter Medications at [...] CDT Appointment Department of Radiation Oncology in [place], [place] [address] [place] [phone] Tim Navarro M.D., Ph.D. [address] [place] [phone] 12/07/2024 11:30 AM CDT Appointment Department of Radiation Oncology in [place], [place] [address] [place] [phone] Tim Navarro M.D., Ph.D. [address] [place] [phone] Christy Wade R.N. [address] [place] [phone] 12/07/2024 12:20 PM CDT Appointment Department of Radiology, [facility], in [place], [place] [address] [place] [phone] Meghna Soto M.B., B.Ch. [address] [place] [phone] 12/07/2024 2:40 PM CDT Office Visit Department of Oncology in [place], [place] [address] [place] [phone] Meghna Soto M.B., B.Ch. [address] [place] [phone] 12/08/2024 8:00 AM CDT Telemedicine Department of Oncology in [place], [place] [address] [place] [phone] Haim Mueller APRN, C.N.P., D.N.P. [address] [place] [phone] Brooklyn Lombardi P.A.-C., M.S. [address] [place] [phone] 12/15/2024 10:00 AM CDT Virtual Visit Department of Cardiovascular Medicine in [place], [place] [address] [place] [phone] Soto Ta M.D., Ph.D. [address] [place] [phone] 02/05/2025 9:30 AM CDT Infusion Department of Infusion Therapy in [place], [place] [address] [place] [phone] Meghna Soto M.B., B.Ch. [address] [place] [phone] documented as of this encounter Procedures Procedure [...] 4:36 PM CDT The largest abdominal wall wad printing machine operator on the right arises on series 9 images 25- 27 and has a relatively long intramuscular course. It originates 3.6 cm: 3.5 cm lateral to the center of the umbilicus. The largest wad printing machine operator on the left also has a relatively [...] COMPARISON: 11/27/2022 IMPRESSION: The largest abdominal wall wad printing machine operator on the right arises on series 9images 25- 27 and has a relatively long intramuscular course. It originates 3.6 cm: 3.5 cm lateral to the center of the umbilicus. The largest wad printing machine operator on the left also has a relatively [...] documented as of this encounter Care Teams Boat Rental Clerk Relationship Specialty Start Date End Date Elsewhere, Pcp PCP - General Internal Medicine 07/25/24 documented as of this encounter
--- OUTSIDE RECORDS SUMMARY | 2024-12-06 21:45 | XMS_ITS | Encounter Summary ---
Author Organization [facility] Address [address] [place] [address] Care Team Providers Care Anthropological Linguist Name Role Phone Elsewhere, Pcp Primary Care Provider Unavailabl e Reason for Visit * Outpatient (Routine) - Closed Specialty Diagnoses / Procedures Referred By Safia garcia Referred To Contact Tre Dumas M.D. [address] [place] [phone] Phone: tel: fax: [facility] Referral ID Status Reason Start Date Expiration Date Visits Re quested Visits Authorized [id number] Closed 10/25/2024 04/26/2026 1 1 Encounter Details Date Type Department Care Team (Latest Contact Info) Description 11/27/2024 5:00 PM CDT Virtual Visit Department of Cardiovascular Medicine in [place], [place] [address] [place] [phone] Tre Dumas M.D. [address] [place] [phone] Patent Foramen Ovale (HCC) (Primary Dx); Hypertension [...] In the past 12 months has e [employer], gas, oil, or water [employer] threatened to shut off services in your [...] Date Recorded Employment status Working with temporary 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 I have a [facility] place to live 10/30/2024 Comments No Sex and Gender Information Value Date Recorded Sex Assigned at Female 07/25/2024 9:49 AM EYELET ROW MARKER Legal Sex Female 6:01 PM EYELET ROW MARKER Gender Identity Female 07/25/2024 9:49 AM EYELET ROW MARKER Sexual Orientation Straight 07/25/2024 9: 49 AM EYELET ROW MARKER documented as of this encounter Consult Notes * Tre Dumas M.D. - 11/27/2024 5:00 PM CDT [id number] PHONE VISIT: SUBJECTIVE A phone call care discussion was completed consistent with [facility] institutional direction. This visit was performed by [...] CDT Appointment Department of Radiation Oncology in [place], [place] [address] [place] [phone] Tim Navarro M.D., Ph.D. [address] [place] [phone] 12/07/2024 11:30 AM CDT Appointment Department of Radiation Oncology in [place], [place] [address] [place] [phone] Tim Navarro M.D., Ph.D. [address] [place] [phone] Christy Wade R.N. [address] [place] [phone] 12/07/2024 12:20 PM CDT Appointment Department of Radiology, [facility], in [place], [place] [address] [place] [phone] Meghna Soto M.B., B.Ch. [address] [place] [phone] 12/07/2024 2:40 PM CDT Office Visit Department of Oncology in [place], [place] [address] [place] [phone] Meghna Soto M.B., B.Ch. [address] [place] [phone] 12/08/2024 8:00 AM CDT Telemedicine Department of Oncology in [place], [place] [address] [place] [phone] Haim Mueller, KRISSY, C.N.P., D.N.P. [address] [place] [phone] Brooklyn Lombardi PLety.-Sajan., M.S. [address] [place] [phone] 12/15/2024 10:00 AM CDT Virtual Visit Department of Cardiovascular Medicine in [place], [place] [address] [place] [phone] Soto Ta M.D., Ph.D. [address] [place] [phone] 02/05/2025 9:30 AM CDT Infusion Department of Infusion Therapy in [place], [place] [address] [place] [phone] Meghna Soto M.B., B.Ch. [address] [place] [phone] documented as of this encounter Visit Diagnoses [...] documented as of this encounter Care Teams Anthropological Linguist Relationship Specialty Start Date End Date Elsewhere, Pcp PCP - General Internal Medicine 07/25/24 documented as of this encounter
--- OUTSIDE RECORDS SUMMARY | 2024-12-06 21:45 | XMS_ITS | Encounter Summary ---
Author Organization [facility] Address [address] [place] [address] Care Team Providers Care Driller And Reamer Name Role Phone Elsewhere, Pcp Primary Care [...] drink = 0.6 oz pur e alcohol) [facility] Utilities Answer Date Recorded In [...] Sex Assigned at Female 07/25/2024 9:49 AM SLITTER HELPER Legal Sex Female 6:01 PM SLITTER HELPER Gender Identity Female 07/25/2024 9:49 AM SLITTER HELPER Sexual Orientation Straight 07/25/2024 9: 49 AM SLITTER HELPER documented as of this encounter Plan of Treatment Upcoming Encounters Date Type Department Care Team (Late st Contact Info) Description 12/07/2024 10:15 AM CDT Appointment Department of Radiation Oncology in [place], [place] [address] [place] [phone] Tim Navarro M.D., Ph.D. [address] [place] [phone] 12/07/2024 11:30 AM CDT Appointment Department of Radiation Oncology in [place], [place] [address] [place] [phone] Tim Navarro M.D., Ph.D. [address] [place] [phone] Christy Wade R.N. [address] [place] [phone] 12/07/2024 12:20 PM CDT Appointment Department of Radiology, [facility], in [place], [place] [address] [place] [phone] Meghna Soto M.B., B.Ch. [address] [place] [phone] 12/07/2024 2:40 PM CDT Office Visit Department of Oncology in [place], [place] [address] [place] [phone] Meghna Soto M.B., B.Ch. [address] [place] [phone] 12/08/2024 8:00 AM CDT Telemedicine Department of Oncology in [place], [place] [address] [place] [phone] Haim Mueller, SHOP GIRL, C.N.P., D.N.P. [address] [place] [phone] Brooklyn Lombardi, P.Philippe.-C., M.S. [address] [place] [phone] 12/15/2024 10:00 AM CDT Virtual Visit Department of Cardiovascular Medicine in [place], [place] [address] [place] [phone] Soto Ta M.D., Ph.D. [address] [place] [phone] 02/05/2025 9:30 AM CDT Infusion Department of Infusion Therapy in [place], [place] [address] [place] [phone] Meghna Soto M.B., B.Ch. [address] [place] [phone] documented as of this encounter Procedures Procedure [...] documented as of this encounter Care Teams Driller And Reamer Relationship Specialty Start Date End Date Elsewhere, Pcp PCP - General Internal Medicine 07/25/24 documented as of this encounter
--- OUTSIDE RECORDS SUMMARY | 2024-12-06 21:45 | XMS_ITS ---
Author Organization [facility] Address [address] [place] [address] Care Team Providers Care Applications Tester Name Role Phone Elsewhere, Pcp Primary Care Provider Unavailabl e Active Problems * This document contains information received from the source organization and may not represent a complete record from that organization. 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
--- OUTSIDE RECORDS SUMMARY | 2024-12-06 21:45 | XMS_ITS | Encounter Summary ---
Author Organization [facility] Address [address] [place] [phone] Care Team Providers Care Otolaryngology Nurse Name Role Phone Elsewhere, Pcp Primary Care Provider Unavailabl e Encounter Details Date Type Department Care Team (Late st Contact Info) Description 11/20/2024 Clinical Communication Department of Oncology in [place], [place] [address] [place] [phone] Leonarda Box R.NNatalia [address] [place] [phone] Social History Tobacco Use Types Packs/Day Years Used Date Smoking Tobacco: Never Passive Smoke Exposure: Past Smokeless Tobacco: Never Alcohol Use Standard Drinks/Week Comments Not Currently 0 (1 standard drink = 0.6 oz pur e alcohol) [facility] Utilities Answer Date Recorded In the past 12 months has [employer], gas, oil, or water [employer] threatened to shut off services in your [...] Date Recorded Employment status Working with temporary [employer] 07/25/2024 Housing Stability Answer Date Recorded What is your living situation today? [facility] a [facility] live 10/30/2024 Comments No Sex and Gender Information Value Date Recorded Sex Assigned at Female 07/25/2024 9:49 AM HABITAT BIOLOGIST Legal Sex Female 6:01 PM HABITAT BIOLOGIST Gender Identity Female 07/25/2024 9:49 AM HABITAT BIOLOGIST Sexual Orientation Straight 07/25/2024 9: 49 AM HABITAT BIOLOGIST documented as of this encounter Plan of Treatment Upcoming Encounters Date Type Department Care Team (Late st Contact Info) Description 12/07/2024 10:15 AM CDT Appointment Department of Radiation Oncology in [place], [place] [address] [place] [phone] Tim Navarro M.D., Ph.D. [address] [place] [phone] 12/07/2024 11:30 AM CDT Appointment Department of Radiation Oncology in [place], [place] [address] [place] [address] Tim Navarro M.D., Ph.D. [address] [place] [phone] Christy Wade R.N. [address] [place] [phone] 12/07/2024 12:20 PM CDT Appointment Department of Radiology, [facility], in [place], [place] [address] [place] [phone] Meghna Soto M.B., B.Ch. [address] [place] [phone] 12/07/2024 2:40 PM CDT Office Visit Department of Oncology in [place], [place] [address] [place] [phone] Meghna Soto M.B., B.Ch. [address] [place] [phone] 12/08/2024 8:00 AM CDT Telemedicine Department of Oncology in [place], [place] [address] [place] [phone] Haim Mueller, ELASTIC YARN TWISTER, C.N.P., D.N.P. [address] [place] [phone] [place] Lombardi PLety.-C., M.S. [address] [place] [phone] 12/15/2024 10:00 AM CDT Virtual Visit Department of Cardiovascular Medicine in [place], [place] [address] [place] [phone] Soto Ta M.D., Ph.D. [address] [place] [phone] 02/05/2025 9:30 AM CDT Infusion Department of Infusion Therapy in [place], [place] [address] [place] [phone] Meghna Soto M.B., B.Ch. [address] [place] [phone] documented as of this encounter Visit Diagnoses Not on filedocumented in this encounter Additional Health Concerns Assessment Noted Time PHQ-9 Depression Total Score: 3 10/28/19 25 9:43 AM CDT documented as of this encounter Care Teams Otolaryngology Nurse Relationship Specialty Start Date End Date Elsewhere, Pcp PCP - General Internal Medicine 07/25/24 documented as of this encounter
--- OUTSIDE RECORDS SUMMARY | 2024-12-06 21:45 | XMS_ITS | Encounter Summary ---
Author Organization [facility] Address [address] [place] [address] Care Team Providers Care Air Brake Rigger Name Role Phone Elsewhere, Pcp Primary Care Provider Unavailabl e Encounter Details Date Type Department Care Team (Latest Contact Info) Description 11/08/2024 12:00 PM CDT - 11/08/2024 3:32 PM CDT Hospital Encounter Department of Laboratory Medicine and Pathology, [facility] in [place], [place] [address] [place] [phone] Foster Mcclendon B.M., B.Ch., Ph.D. 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 I have a [facility] place to live 10/30/2024 Comments No Sex and Gender Information Value Date Recorded Sex Assigned at Female 07/25/2024 9:49 AM RADIOTELEGRAPH OPERATOR Legal Sex Female 6:01 PM RADIOTELEGRAPH OPERATOR Gender Identity Female 07/25/2024 9:49 AM RADIOTELEGRAPH OPERATOR Sexual Orientation Straight 07/25/2024 9: 49 AM RADIOTELEGRAPH OPERATOR documented as of this encounter Medications [...] CDT Appointment Department of Radiation Oncology in [place], [place] [address] [place] [phone] Tim Navarro M.D., Ph.D. [address] [place] [phone] 12/07/2024 11:30 AM CDT Appointment Department of Radiation Oncology in [place], [place] [address] [place] [phone] Tim Navarro M.D., Ph.D. [address] [place] [phone] Christy Wade R.N. [address] [place] [phone] 12/07/2024 12:20 PM CDT Appointment Department of Radiology, [facility], in [place], [place] [address] [place] [phone] Meghna Soto M.B., B.Ch. [address] [place] [phone] 12/07/2024 2:40 PM CDT Office Visit Department of Oncology in [place], [place] [address] [place] [phone] Meghna Soto M.B., B.Ch. [address] [place] [phone] 12/08/2024 8:00 AM CDT Telemedicine Department of Oncology in [place], [place] [address] [place] [phone] Haim Mueller, OVEN BUILDER, C.N.P., D.N.P. [address] [place] [phone] [place] Lombardi P.A.-Sajan., M.S. [address] [place] [phone] 12/15/2024 10:00 AM CDT Virtual Visit Department of Cardiovascular Medicine in [place], [place] [address] [place] [phone] Soto Ta M.D., Ph.D. [address] [place] [phone] 02/05/2025 9:30 AM CDT Infusion Department of Infusion Therapy in [place], [place] [address] [place] [phone] Meghna Soto M.B., B.Ch. [address] [place] [phone] documented as of this encounter Procedures Procedure [...] Ph.D. LAB BLOOD ADD-O N Final Result [facility] 200 [place] [address], [facility] DTL [facility] 200 [place] [address] documented in this encounter Visit Diagnoses Diagnosis [...] documented as of this encounter Care Teams Air Brake Rigger Relationship Specialty Start Date End Date Elsewhere, Pcp PCP - General Internal Medicine 07/25/24 documented as of this encounter
--- OUTSIDE RECORDS SUMMARY | 2024-12-06 21:45 | XMS_ITS | Encounter Summary ---
Author Organization [facility] Address [address] [place] [address] Care Team Providers Care Hypoid Gear Tester Name Role Phone Elsewhere, Pcp Primary Care Provider Unavailabl e Reason for Visit * Outpatient (Routine) - Closed Specialty Diagnoses / Procedures Referred By Safia garcia Referred To Contact Plastic Surgery Yoon Hamilton APRN, C.N.P., D.N.P. [address] [place] [phone] Phone: tel: fax: [facility] Referral ID Status Reason Start Date Expiration Date Visits Re quested Visits Authorized [id number] Closed 11/13/2024 05/15/2026 1 1 Encounter Details Date Type Department Care Team (Latest Contact Info) Description 11/27/2024 1:30 PM CDT Office Visit Division of Plastic Surgery in [place], [place] [address] [place] [phone] Yoon Hamilton APRN, C.N.P., D.N.P. [address] [place] [phone] Follow Up Examination Postoperative Visit (Primary Dx) [...] Date Recorded Employment status Working with temporary 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 I have a [facility] place to live 10/30/2024 Comments No Sex and Gender Information Value Date Recorded Sex Assigned at Female 07/25/2024 9:49 AM KETTLE HAND Legal Sex Female 6:01 PM KETTLE HAND Gender Identity Female 07/25/2024 9:49 AM KETTLE HAND Sexual Orientation Straight 07/25/2024 9: 49 AM KETTLE HAND documented as of this encounter Progress Notes * Yoon Hamilton, KRISSY, C.N.P., D.N.P. - 11/27/2024 1:30 [...] CDT Appointment Department of Radiation Oncology in [address] [phone] Tim Navarro M.D., Ph.D. [address] [place] [phone] 12/07/2024 11:30 AM CDT Appointment Department of Radiation Oncology in [address] [phone] Tim Navarro M.D., Ph.D. [address] [place] [phone] Christy Wade R.N. [address] [place] [phone] 12/07/2024 12:20 PM CDT Appointment Department of Radiology, [facility], in [address] [phone] Meghna Soto M.B., B.Ch. [address] [place] [phone] 12/07/2024 2:40 PM CDT Office Visit Department of Oncology in [place], [place] [address] [place] [phone] Meghna Soto M.B., B.Ch. [address] [place] [phone] 12/08/2024 8:00 AM CDT Telemedicine Department of Oncology in [place], [place] [address] [place] [phone] Haim Mueller APRN, C.N.P., D.N.P. [address] [place] [phone] [place] Lombardi P.A.-C., M.S. [address] [place] [phone] 12/15/2024 10:00 AM CDT Virtual Visit Department of Cardiovascular Medicine in [place], [place] [address] [place] [phone] Soto Ta M.D., Ph.D. [address] [place] [phone] 02/05/2025 9:30 AM CDT Infusion Department of Infusion Therapy in [place], [place] [address] [place] [phone] Meghna Soto M.B., B.Ch. 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
--- OUTSIDE RECORDS SUMMARY | 2024-12-06 21:45 | XMS_ITS | Encounter Summary ---
Author Organization [facility] Address [address] [place] [address] Care Team Providers Care Local Announcer Name Role Phone Elsewhere, Pcp Primary Care Provider Unavailabl e Encounter Details Date Type Department Care Team (Late st Contact Info) Description 11/10/2024 Results Follow-Up Division of Plastic Surgery in [place], [place] [address] [place] [phone] Foster Mcclendon B.M., B.Ch., Ph.D. [address] [place] [phone] [address] Pelvis Angiogram with IV Contrast Social History Tobacco Use Types Packs/Day Years Used Date Smoking Tobacco: Never Passive Smoke Exposure: Past Smokeless Tobacco: Never Alcohol Use Standard Drinks/Week Comments Not Currently 0 (1 standard drink = 0.6 oz pur e alcohol) [facility] Utilities Answer Date Recorded In the past 12 months has [employer], gas, oil, or water [employer] threatened to shut off services in your [...] Date Recorded Employment status Working with temporary [employer] 07/25/2024 Housing Stability Answer Date Recorded What is your living situation today? I have a [facility] place to live 10/30/2024 Comments No Sex and Gender Information Value Date Recorded Sex Assigned at Female 07/25/2024 9:49 AM COMPUTER SYSTEMS ENGINEER Legal Sex Female 6:01 PM COMPUTER SYSTEMS ENGINEER Gender Identity Female 07/25/2024 9:49 AM COMPUTER SYSTEMS ENGINEER Sexual Orientation Straight 07/25/2024 9: 49 AM COMPUTER SYSTEMS ENGINEER documented as of this encounter Plan of Treatment Upcoming Encounters Date Type Department Care Team (Late st Contact Info) Description 12/07/2024 10:15 AM CDT Appointment Department of Radiation Oncology in [place], [place] [address] [place] [phone] Tim Navarro M.D., Ph.D. [address] [place] [phone] 12/07/2024 11:30 AM CDT Appointment Department of Radiation Oncology in [place], [place] [address] [place] [phone] Tim Navarro M.D., Ph.D. [address] [place] [phone] Christy Wade R.N. [address] [place] [phone] 12/07/2024 12:20 PM CDT Appointment Department of Radiology, [facility], in [place], [place] [address] [place] [phone] Meghna Soto M.B., B.Ch. [address] [place] [phone] 12/07/2024 2:40 PM CDT Office Visit Department of Oncology in [place], [place] [address] [place] [phone] Meghna Soto M.B., B.Ch. [address] [place] [phone] 12/08/2024 8:00 AM CDT Telemedicine Department of Oncology in [place], [place] [address] [place] [phone] Haim Mueller, KRISSY, C.N.P., D.N.P. [address] [place] [phone] [place] Lombardi P.A.-C., M.S. [address] [place] [phone] 12/15/2024 10:00 AM CDT Virtual Visit Department of Cardiovascular Medicine in [place], [place] [address] [place] [phone] Soto Ta M.D., Ph.D. [address] [place] [phone] 02/05/2025 9:30 AM CDT Infusion Department of Infusion Therapy in [place], [place] [address] [place] [phone] Meghna Soto M.B., B.Ch. [address] [place] [phone] documented as of this encounter Visit Diagnoses Not on filedocumented in this encounter Additional Health Concerns Assessment Noted Time PHQ-9 Depression Total Score: 3 10/28/19 25 9:43 AM CDT documented as of this encounter Care Teams Local Announcer Relationship Specialty Start Date End Date Elsewhere, Pcp PCP - General Internal Medicine 07/25/24 documented as of this encounter
--- OUTSIDE RECORDS SUMMARY | 2024-12-06 21:45 | XMS_ITS | Encounter Summary ---
Author Organization [facility] Address [address] [place] [address] Care Team Providers Care Auto Brake Technician Name Role Phone Elsewhere, Pcp Primary [...] drink = 0.6 oz pur e alcohol) [facility] Utilities Answer Date Recorded [...] [facility] 10/30/2024 Comments No Sex and Gender Information Value Date Recorded Sex Assigned at Female 07/25/2024 9:49 AM CLAY PLANT TREATER Legal Sex Female 6:01 PM CLAY PLANT TREATER Gender Identity Female 07/25/2024 9:49 AM CLAY PLANT TREATER Sexual Orientation Straight 07/25/2024 9: 49 AM CLAY PLANT TREATER documented as of this encounter Plan of Treatment Upcoming Encounters Date Type Department Care Team (Late st Contact Info) Description 12/07/2024 10:15 AM CDT Appointment Department of Radiation Oncology in [place], [place] [address] [place] [phone] Tim Navarro M.D., Ph.D. [address] [place] [phone] 12/07/2024 11:30 AM CDT Appointment Department of Radiation Oncology in [place], [place] [address] [place] [phone] Tim Navarro M.D., Ph.D. [address] [place] [phone] Christy Wade R.N. [address] [place] [phone] 12/07/2024 12:20 PM CDT Appointment Department of Radiology, [facility], in [place], [place] [address] [place] [phone] Meghna Soot M.B., B.Ch. [address] [place] [phone] 12/07/2024 2:40 PM CDT Office Visit Department of Oncology in [place], [place] [address] [place] [phone] Meghna Soto M.B., B.Ch. [address] [place] [phone] 12/08/2024 8:00 AM CDT Telemedicine Department of Oncology in [place], [place] [address] [place] [phone] Haim Mueller, OUTPATIENT COORDINATOR, C.N.P., D.N.P. [address] [place] [phone] [place] Lombardi, P.Philippe.-C., M.S. [address] [place] [phone] 12/15/2024 10:00 AM CDT Virtual Visit Department of Cardiovascular Medicine in [place], [place] [address] [place] [phone] Soto Ta M.D., Ph.D. [address] [place] [phone] 02/05/2025 9:30 AM CDT Infusion Department of Infusion Therapy in [place], [place] [address] [place] [phone] Meghna Soto M.B., B.Ch. [address] [place] [phone] documented as of this encounter Procedures Procedure [...] documented as of this encounter Care Teams Auto Brake Technician Relationship Specialty Start Date End Date Elsewhere, Pcp PCP - General Internal Medicine 07/25/24 documented as of this encounter
--- OUTSIDE RECORDS SUMMARY | 2024-12-06 21:45 | XMS_ITS | Encounter Summary ---
Author Organization [facility] Address [address] [place] [address] Care Team Providers Care Billet Heater Name Role Phone Elsewhere, Pcp Primary Care Provider Unavailabl e Reason for Visit * Reason Onset Date Comments Oncotype Dx 11/09/2024 Encounter Details Date Type Department Care Team (Late st Contact Info) Description 11/09/2024 Clinical Communication Department of Oncology in [place], [place] [address] [place] [phone] Laura Kinsey, KRISSY, C.N.P., M.S.N. [address] [place] [phone] Oncotype Dx Social History Tobacco Use Types [...] Date Recorded Employment status Working with temporary [employer] 07/25/2024 Housing Stability Answer Date Recorded What is your living situation today? I have a [facility] place [facility] 10/30/2024 Comments No Sex and Gender Information Value Date Recorded Sex Assigned at Female 07/25/2024 9:49 AM PLASTIC PARTS DESIGNER Legal Sex Female 6:01 PM PLASTIC PARTS DESIGNER Gender Identity Female 07/25/2024 9:49 AM PLASTIC PARTS DESIGNER Sexual Orientation Straight 07/25/2024 9: 49 AM PLASTIC PARTS DESIGNER documented as of this encounter Plan of Treatment Upcoming Encounters Date Type Department Care Team (Late st Contact Info) Description 12/07/2024 10:15 AM CDT Appointment Department of Radiation Oncology in [place], [place] [address] [place] [address] Tim Navarro M.D., Ph.D. [address] [place] [phone] 12/07/2024 11:30 AM CDT Appointment Department of Radiation Oncology in [place], [place] [address] [place] [phone] Tim Navarro M.D., Ph.D. [address] [place] [phone] Christy Wade R.N. [address] [place] [address] [phone] 12/07/2024 12:20 PM CDT Appointment Department of Radiology, [facility], in [place], [place] [address] [place] [phone] Meghna Soto M.B., B.Ch. [address] [place] [phone] 12/07/2024 2:40 PM CDT Office Visit Department of Oncology in [place], [place] [address] [place] [phone] Meghna Soto M.B., B.Ch. [address] [place] [phone] 12/08/2024 8:00 AM CDT Telemedicine Department of Oncology in [place], [place] [address] [place] [phone] Haim Mueller APRN, C.N.P., D.N.P. [address] [place] [phone] [place] Lombardi P.A.-C., M.S. [address] [place] [phone] 12/15/2024 10:00 AM CDT Virtual Visit Department of Cardiovascular Medicine in [place], [place] [address] [place] [phone] Soto Ta M.D., Ph.D. [address] [place] [phone] 02/05/2025 9:30 AM CDT Infusion Department of Infusion Therapy in [place], [place] [address] [place] [phone] Meghna Soot M.B., B.Ch. [address] [place] [phone] documented as of this encounter Visit Diagnoses Not on filedocumented in this encounter Additional Health Concerns Assessment Noted Time PHQ-9 Depression Total Score: 3 10/28/19 25 9:43 AM CDT documented as of this encounter Care Teams Billet Heater Relationship Specialty Start Date End Date Elsewhere, Pcp PCP - General Internal Medicine 07/25/24 documented as of this encounter
--- OUTSIDE RECORDS SUMMARY | 2024-12-06 21:45 | XMS_ITS | Encounter Summary ---
Author Organization [facility] Address [address] [place] [phone] Care Team Providers Care Door Liner Name Role Phone Elsewhere, Pcp Primary Care Provider Unavailabl e Reason for Visit * Reason Comments Injections Zoladex * Episode Based Medications (Routine) - Authorized Specialty Diagnoses / Procedures Referred By Safia garcia Referred To Contact Diagnoses Malignant Neoplasm Of Breast Upper Outer Quadrant Female Right (HCC) Procedures AL GOSERELIN ACETATE IMPLANT Meghna Soto M.B., B.Ch. [address] [place] [phone] Phone: tel: fax: Meghna Soto M.B., B.Ch. [address] [place] [phone] Phone: tel: fax: Referral ID Status Reason Start Date Expiration Date V isits Requested Visits Authorized [id number] Authorized 11/13/2024 02/13/2026 99 99 Encounter Details Date Type Department Care Team (Late st Contact Info) Description 11/13/2024 9:30 AM CDT Infusion Department of Infusion Therapy in [place], [place] [address] [place] [phone] Meghna Soto M.B., B.Ch. [address] [place] [phone] Malignant Neoplasm Of Breast Upper Outer Quadrant Female Right (HCC) (Primary Dx) Discharge Disposition: Home or Self Care Social History Tobacco Use Types Packs/Day Years Used Date Smoking Tobacco: Never Passive Smoke Exposure: Past Smokeless Tobacco: Never Alcohol Use Standard Drinks/Week Comments Not Currently 0 (1 standard drink = 0.6 oz pur e alcohol) [facility] Utilities Answer Date Recorded In the past 12 months has th e [employer] gas, oil, or water [employer] threatened to shut off services in your [...] your living situation today? I have a [facility] place to live 10/30/2024 Comments No Sex and Gender Information Value Date Recorded Sex Assigned at Female 07/25/2024 9:49 AM KIER PLEATER Legal Sex Female 6:01 PM KIER PLEATER Gender Identity Female 07/25/2024 9:49 AM KIER PLEATER Sexual Orientation Straight 07/25/2024 9: 49 AM KIER PLEATER documented as of this encounter Last Filed [...] CDT Appointment Department of Radiation Oncology in [address] [phone] Tim Navarro M.D., Ph.D. [address] [place] [phone] 12/07/2024 11:30 AM CDT Appointment Department of Radiation Oncology in [address] [phone] Tim Navarro M.D., Ph.D. [address] [place] [phone] Christy Wade R.N. [address] [place] [phone] 12/07/2024 12:20 PM CDT Appointment Department of Radiology, [facility], in [place], [place] [address] [place] [phone] Meghna Soto M.B., B.Ch. [address] [place] [phone] 12/07/2024 2:40 PM CDT Office Visit Department of Oncology in [place], [place] [address] [place] [phone] Meghna Soto M.B., B.Ch. [address] [place] [phone] 12/08/2024 8:00 AM CDT Telemedicine Department of Oncology in [place], [place] [address] [place] [phone] Haim Mueller, KRISSY, C.N.P., D.N.P. [address] [place] [phone] Brooklyn Lombardi P.A.-C., M.S. [address] [place] [phone] 12/15/2024 10:00 AM CDT Virtual Visit Department of Cardiovascular Medicine in [place], [place] [address] [place] [phone] Soto Ta M.D., Ph.D. [address] [place] [phone] 02/05/2025 9:30 AM CDT Infusion Department of Infusion Therapy in [place], [place] [address] [place] [phone] Meghna Soto M.B., B.Ch. [address] [place] [phone] documented as of this encounter Visit Diagnoses [...] documented as of this encounter Care Teams Door Liner Relationship Specialty Start Date End Date Elsewhere, Pcp PCP - General Internal Medicine 07/25/24 documented as of this encounter
--- OUTSIDE RECORDS SUMMARY | 2024-12-06 21:45 | XMS_ITS | Encounter Summary ---
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 200 [place] [address] Phone: tel: fax: [facility] Referral [...] Management Visit Tim Navarro M.D., Ph.D. 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 [address] [place] [phone] Phone: tel: fax: [facility] Referral ID Status Reason Start Date Expiration Date Visits Re quested Visits Authorized [id number] Closed 11/06/2024 05/08/2026 1 1 Encounter Details Date Type Department Care Team (Latest Contact Info) Description 11/20/2024 8:45 AM CDT - 11/20/2024 1:10 PM CDT Hospital Encounter Department of Radiation Oncology in [place], [place] [address] [place] [phone] Tim Navarro M.D., Ph.D. [address] [place] [phone] Malignant Neoplasm Of Breast Upper Outer Quadrant [...] drink = 0.6 oz pur e alcohol) [facility] Utilities Answer Date Recorded In the [...] living situation today? I have a [facility] place to live 10/30/2024 Comments No Sex and Gender Information Value Date Recorded Sex Assigned at Female 07/25/2024 9:49 AM DISH PERSON Legal Sex Female 6:01 PM DISH PERSON Gender Identity Female 07/25/2024 9:49 AM DISH PERSON Sexual Orientation Straight 07/25/2024 9: 49 AM DISH PERSON documented as of this encounter Last Filed [...] cancer. Collaborating physician: Tim Navarro M.D., Ph.D. ([phone]) History of Present Illness Mrs. Maryam Ayers is a 54 y.o. woman from [place], [place] with right breast invasive lobular carcinoma, grade 2, ER+ (91-100%) NJ+ (91-100%) HER2- (1+ IHC), Ki-67 5-10%, [id number]; s/p bilateral mastectomy with right axillary sentinel lymph node biopsy and flat closure on 10/30/2024, pT1b(m)N1a(sn). She presents to the Department of Radiation Oncology for discussion regarding the role of radiotherapy. She is accompanied today by her supportive partner Rom. 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 invasive lobular carcinoma; Grade: 2. Hormone receptor testing: Estrogen positive (91-100%), Progesterone positive (91-100%), HER2 1+ (negative), and Ki-67 (5-10%.) Per [facility] Review: Complete. 08/31/2024 Genetic Testing and Tumor Genotyping 09/01/2024 Initial Diagnosis September 01, 2024: Consultation with Dr. Vasques-[facility]. Additional imaging and biopsies recommended. 09/15/2024 Biopsy/Pathology Site 1: MRI guided biopsy of the right breast, 8 o'clock position, 3.5 cm posterior to the nipple showed invasive lobular carcinoma grade 2 (of 3) measuring 4 mm in greatest linear extent. LCIS, classic and focal pleomorphic types present. ER and NJ 91-100% positive. HER2 Rosa negative with a [...] type with the associated microcalcifications. ER and NJ 91- 100% positive. 10/30/2024 Surgery and Procedures [...] mm in size with no extranodal extension. [id number] Tumor: multifocal invasive lobular carcinoma, grade 2, [...] Stage IA (pT1b, pN1a(sn), cM0, G2, ER+, NJ+, HER2-) Stage prefix: Initial diagnosis Method of lymph node assessment: Jupiter lymph node biopsy Nuclear grade: GX Multigene prognostic tests performed: None Histologic grading system: 3 grade system 11/08/2024 Other November 08, 2024: Consultation with Dr. Meghna Soto, [facility] Medical [facility]cology for adjuvant treatment discussion. 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 ER and NJ 91-100% positive. 10/30/2024 Pathologic Stage Staging form: Breast, AJCC 8th Edition - Pathologic stage from 10/30/2024: Stage Unknown (pTis (DCIS), pNX, ER+, NJ+, HER2: Not Assessed) Stage prefix: Initial diagnosis [...] (ages 14, 22, 25). 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 She is a never smoker. OBJECTIVE Wt [...] today. I introduced myself as a physician engineer second assistant working with Dr. Navarro. I reviewed [...] above. is a pleasant 54-year-old lady from [facility] with recent diagnosis of multifocal right-sided invasive [...] CDT Appointment Department of Radiation Oncology in [place], [place] [address] [place] [phone] Tim Navarro M.D., Ph.D. [address] [place] [phone] 12/07/2024 11:30 AM CDT Appointment Department of Radiation Oncology in [address] [phone] Tim Navarro M.D., Ph.D. [address] [place] [phone] Christy Wade R.N. [address] [place] [phone] 12/07/2024 12:20 PM CDT Appointment Department of Radiology, [facility], in [place], [place] [address] [place] [phone] Meghna Soto M.B., B.Ch. [address] [place] [phone] 12/07/2024 2:40 PM CDT Office Visit Department of Oncology in [place], [place] [address] [place] [phone] Meghna Soto M.B., B.Ch. [address] [place] [phone] 12/08/2024 8:00 AM CDT Telemedicine Department of Oncology in [place], [place] [address] [place] [phone] Haim Mueller APRN, C.N.P., D.N.P. [address] [place] [phone] Brooklyn Lombardi P.A.-C., M.S. [address] [place] [phone] 12/15/2024 10:00 AM CDT Virtual Visit Department of Cardiovascular Medicine in [place], [place] [address] [place] [phone] Soto Ta M.D., Ph.D. [address] [place] [phone] 02/05/2025 9:30 AM CDT Infusion Department of Infusion Therapy in [place], [place] [address] [place] [phone] Meghna Soto M.B., B.Ch. [address] [place] [phone] Scheduled Orders Name Type Priority Associated Diagnoses [...] documented as of this encounter Care Teams Legal Entity Controller Relationship Specialty Start Date End Date Elsewhere, Pcp PCP - General Internal Medicine 07/25/24 documented as of this encounter
--- OUTSIDE RECORDS SUMMARY | 2024-12-06 21:45 | XMS_ITS | Encounter Summary ---
Author Organization [facility] Address [address] [place] [address] Care Team Providers Care Performance Improvement Specialist Name Role Phone Elsewhere, Pcp Primary Care Provider Unavailabl e Encounter Details Date Type Department Care Team (Late st Contact Info) Description 11/27/2024 Orders Only Department of Oncology in [place], [place] [address] [place] [phone] Meghna Soto M.B., B.Ch. [address] [place] [phone] Social History Tobacco Use Types Packs/Day Years Used Date Smoking Tobacco: Never Passive Smoke Exposure: Past Smokeless Tobacco: Never Alcohol Use Standard Drinks/Week Comments Not Currently 0 (1 standard drink = 0.6 oz pur e alcohol) [facility] Utilities Answer Date Recorded In the past 12 months has e [employer], gas, oil, or water [employer] threatened to shut off services in your [...] Date Recorded Employment status Working with temporary [employer] 07/25/2024 Housing Stability Answer Date Recorded What is your living situation today? I have a [facility] place to live 10/30/2024 Comments No Sex and Gender Information Value Date Recorded Sex Assigned at Female 07/25/2024 9:49 AM MANAGER CONSUMER INSIGHTS Legal Sex Female 6:01 PM MANAGER CONSUMER INSIGHTS Gender Identity Female 07/25/2024 9:49 AM MANAGER CONSUMER INSIGHTS Sexual Orientation Straight 07/25/2024 9: 49 AM MANAGER CONSUMER INSIGHTS documented as of this encounter Plan of Treatment Upcoming Encounters Date Type Department Care Team (Late st Contact Info) Description 12/07/2024 10:15 AM CDT Appointment Department of Radiation Oncology in [place], [place] [address] [place] [phone] Tim Navarro M.D., Ph.D. [address] [place] [phone] 12/07/2024 11:30 AM CDT Appointment Department of Radiation Oncology in [place], [place] [address] [place] [phone] Tim Navarro M.D., Ph.D. [address] [place] [phone] Christy Wade R.N. [address] [place] [phone] 12/07/2024 12:20 PM CDT Appointment Department of Radiology, [facility], in [place], [place] [address] [place] [phone] Meghna Soto M.B., B.Ch. [address] [place] [phone] 12/07/2024 2:40 PM CDT Office Visit Department of Oncology in [place], [place] [address] [place] [phone] Meghna Soto M.B., B.Ch. [address] [place] [phone] 12/08/2024 8:00 AM CDT Telemedicine Department of Oncology in [place], [place] [address] [place] [phone] Haim Mueller, KRISSY, C.N.P., D.N.P. [address] [place] [phone] Brooklyn Lombardi, PLety.-C., M.S. [address] [place] [phone] 12/15/2024 10:00 AM CDT Virtual Visit Department of Cardiovascular Medicine in [place], [place] [address] [place] [phone] Soto Ta M.D., Ph.D. [address] [place] [phone] 02/05/2025 9:30 AM CDT Infusion Department of Infusion Therapy in [place], [place] [address] [place] [phone] Meghna Soto M.B., B.Ch. [address] [place] [phone] documented as of this encounter Visit Diagnoses Not on filedocumented in this encounter Additional Health Concerns Assessment Noted Time PHQ-9 Depression Total Score: 4 11/25/19 25 3:38 PM CDT documented as of this encounter Care Teams Performance Improvement Specialist Relationship Specialty Start Date End Date Elsewhere, Pcp PCP - General Internal Medicine 07/25/24 documented as of this encounter
--- OUTSIDE RECORDS SUMMARY | 2024-12-06 21:45 | XMS_ITS | Encounter Summary ---
Author Organization [facility] Address [address] [place] [phone] Care Team Providers Care Addresser Name Role Phone Elsewhere, Pcp Primary Care Provider Unavailabl e Reason for Visit * Reason Comments Follow-up Encounter Details Date Type Department Care Team (Late st Contact Info) Description 12/01/2024 Documentation Division of Breast and Melanoma Surgical Oncology in [place], [place] [address] [place] [phone] Brie Durant M.D. [address] [place] [phone] Follow-up Social History Tobacco Use Types Packs/Day Years Used Date Smoking Tobacco: Never Passive Smoke Exposure: Past Smokeless Tobacco: Never Alcohol Use Standard Drinks/Week Comments Not Currently 0 (1 standard drink = 0.6 oz pur e alcohol) [facility] Utilities Answer Date Recorded In the past 12 months has [employer], gas, oil, or water [employer] threatened to shut off services in your [...] Date Recorded Employment status Working with temporary [employer] 07/25/2024 Housing Stability Answer Date Recorded What is your living situation today? I have a [facility] place to live 10/30/2024 Comments No Sex and Gender Information Value Date Recorded Sex Assigned at Female 07/25/2024 9:49 AM PRODUCTION MAINTENANCE MECHANIC Legal Sex Female 6:01 PM PRODUCTION MAINTENANCE MECHANIC Gender Identity Female 07/25/2024 9:49 AM PRODUCTION MAINTENANCE MECHANIC Sexual Orientation Straight 07/25/2024 9: 49 AM PRODUCTION MAINTENANCE MECHANIC documented as of this encounter Progress Notes [...] CDT Appointment Department of Radiation Oncology in [address] [phone] Tim Navarro M.D., Ph.D. [address] [place] [phone] 12/07/2024 11:30 AM CDT Appointment Department of Radiation Oncology in [address] [phone] Tim Navarro M.D., Ph.D. [address] [place] [phone] Christy Wade R.N. [address] [place] [phone] 12/07/2024 12:20 PM CDT Appointment Department of Radiology, [facility], in [address] [phone] Meghna Soto M.B., B.Ch. [address] [place] [phone] 12/07/2024 2:40 PM CDT Office Visit Department of Oncology in [place], [place] [address] [place] [phone] Meghna Soto M.B., B.Ch. [address] [place] [phone] 12/08/2024 8:00 AM CDT Telemedicine Department of Oncology in [place], [place] [address] [place] [phone] Haim Mueller, KRISSY, C.N.P., D.N.P. [address] [place] [phone] Brooklyn Lombardi P.A.-C., M.S. [address] [place] [phone] 12/15/2024 10:00 AM CDT Virtual Visit Department of Cardiovascular Medicine in [place], [place] [address] [place] [phone] Soto Ta M.D., Ph.D. [address] [place] [phone] 02/05/2025 9:30 AM CDT Infusion Department of Infusion Therapy in [place], [place] [address] [place] [phone] Meghna Soto M.B., B.Ch. [address] [place] [phone] documented as of this encounter Visit Diagnoses Not on filedocumented in this encounter Additional Health Concerns Assessment Noted Time PHQ-9 Depression Total Score: 4 11/25/19 25 3:38 PM CDT documented as of this encounter Care Teams Addresser Relationship Specialty Start Date End Date Elsewhere, Pcp PCP - General Internal Medicine 07/25/24 documented as of this encounter
--- OUTSIDE RECORDS SUMMARY | 2024-12-06 21:45 | XMS_ITS | Encounter Summary ---
Author Organization [facility] Address [address] [place] [id number] Care Team Providers Care Fishing Boat Mate Name Role Phone Elsewhere, Pcp Primary Care Provider Unavailabl e Reason for Visit * Outpatient (Routine) - Closed Specialty Diagnoses / Procedures Referred By Safia garcia Referred To Contact General Surgery Brie Durant M.D. 200 [place] [address] Phone: tel: fax: [facility] Referral ID Status Reason Start Date Expiration Date Visits Re quested Visits Authorized [id number] Closed 09/19/2024 03/21/2026 1 1 Encounter Details Date Type Department Care Team (Latest Contact Info) Description 11/08/2024 1:00 PM CDT Office Visit Division of Breast and Melanoma Surgical Oncology in [place], [place] [address] [place] [phone] Geno Stevenson, KRISSY, C.N.P., D.N.P. 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 I have a [facility] place to live 10/30/2024 Comments No Sex and Gender Information Value Date Recorded Sex Assigned at Female 07/25/2024 9:49 AM PRIMARY M[place]ESSOR[employer] TEACHER Legal Sex Female 6:01 PM PRIMARY MONTESSOR[employer] TEACHER Gender Identity Female 07/25/2024 9:49 AM PRIMARY [place]ESSOR[place] TEACHER Sexual Orientation Straight 07/25/2024 9: 49 AM PRIMARY MONTESSORI TEACHER documented as of this encounter Progress Notes * Geno Stevenson, TRADE PROMOTION ANALYST, C.N.P., D.N.P. - 11/08/2024 1:00 PM CDT [...] Female Right (HCC) Staging: Right breast carcinoma, [id number] Basic: right Multidisciplinary appointments - the patient [...] CDT Appointment Department of Radiation Oncology in [place], [place] [address] [place] [phone] Tim Navarro M.D., Ph.D. [address] [place] [phone] 12/07/2024 11:30 AM CDT Appointment Department of Radiation Oncology in [place], [place] [address] [place] [phone] Tim Navarro M.D., Ph.D. [address] [place] [phone] Christy Wade R.N. [address] [place] [phone] 12/07/2024 12:20 PM CDT Appointment Department of Radiology, [facility], in [place], [place] [address] [place] [phone] Meghna Soto M.B., B.Ch. [address] [place] [phone] 12/07/2024 2:40 PM CDT Office Visit Department of Oncology in [place], [place] [address] [place] [phone] Meghna Soto M.B., B.Ch. [address] [place] [phone] 12/08/2024 8:00 AM CDT Telemedicine Department of Oncology in [place], [place] [address] [place] [phone] Haim Mueller APRN, C.N.P., D.N.P. [address] [place] [phone] Brooklyn Lombardi P.A.-C., M.S. [address] [place] [phone] 12/15/2024 10:00 AM CDT Virtual Visit Department of Cardiovascular Medicine in [place], [place] [address] [place] [phone] Soto Ta M.D., Ph.D. [address] [place] [phone] 02/05/2025 9:30 AM CDT Infusion Department of Infusion Therapy in [place], [place] [address] [place] [phone] Meghna Soto M.B., B.Ch. [address] [place] [phone] documented as of this encounter Visit Diagnoses [...] documented as of this encounter Care Teams Fishing Boat Mate Relationship Specialty Start Date End Date Elsewhere, Pcp PCP - General Internal Medicine 07/25/24 documented as of this encounter
--- OUTSIDE RECORDS SUMMARY | 2024-12-06 21:45 | XMS_ITS | Encounter Summary ---
Author Organization [facility] Address [address] [place] [phone] Care Team Providers Care Prefitter Doors Name Role Phone Elsewhere, Pcp Primary Care Provider Unavailabl e Reason for Referral * Outpatient (Routine) - Closed Specialty Diagnoses / Procedures Referred By Safia garcia Referred To Contact Plastic Surgery Yoon Hamilton APRN, C.N.P., D.N.P. [address] [place] [phone] Phone: tel: fax: [facility] Referral ID Status Reason Start Date Expiration Date Visits Re quested Visits Authorized [id number] Closed 11/13/2024 05/15/2026 1 1 Scheduling Instructions Yoon Johnson in approx 2 weeks Reason for Visit * Outpatient (Routine) - Closed Specialty Diagnoses / Procedures Referred By Contac t Referred To Contact Plastic Surgery Foster Mcclendon B.M., B.Ch., Ph.D. [address] [place] [phone] Phone: tel: fax: [facility] Referral ID Status Reason Start Date Expiration Date Visits Re quested Visits Authorized [id number] Closed 09/21/2024 03/23/2026 1 1 Encounter Details Date Type Department Care Team (Latest Contact Info) Description 11/13/2024 8:00 AM CDT Office Visit Division of Plastic Surgery in [place], [place] [address] [place] [phone] Yoon Hamilton APRN, C.N.P., D.N.P. [address] [place] [phone] Follow Up Examination Postoperative Visit (Primary Dx) Social History Tobacco Use Types Packs/Day Years Used Date Smoking Tobacco: Never Passive Smoke Exposure: Past Smokeless Tobacco: Never Alcohol Use Standard Drinks/Week Comments Not Currently 0 (1 standard drink = 0.6 oz pur e alcohol) [facility] Utilities Answer Date Recorded In the past 12 months has th e electric, gas, oil, or water [employer] threatened to shut off services in your [...] Sex Assigned at Female 07/25/2024 9:49 AM ACTIVITIES ASSISTANT Legal Sex Female 6:01 PM ACTIVITIES ASSISTANT Gender Identity Female 07/25/2024 9:49 AM ACTIVITIES ASSISTANT Sexual Orientation Straight 07/25/2024 9: 49 AM ACTIVITIES ASSISTANT documented as of this encounter Progress Notes * Yoon Hamilton, KRISSY, C.N.P., D.N.P. - 11/13/2024 8:00 AM CDT SUBJECTIVE CHIEF COMPLAINT / REASON FOR VISIT 1. Maryam underwent bilateral simple mastectomy with Dr. Durant followed by flat closure with Dr. Mcclendon on 10/30/2024. 2. Routine Post Op visit - 2 weeks HISTORY OF PRESENT ILLNESS Maryam is [...] CDT Appointment Department of Radiation Oncology in [place], [place] [address] [place] [phone] Tim Navarro M.D., Ph.D. [address] [place] [phone] 12/07/2024 11:30 AM CDT Appointment Department of Radiation Oncology in [place], [place] [address] [place] [phone] Tim Navarro M.D., Ph.D. [address] [place] [phone] Christy Wade R.N. [address] [place] [phone] 12/07/2024 12:20 PM CDT Appointment Department of Radiology, [facility], in [place], [place] [address] [place] [phone] Meghna Soto M.B., B.Ch. [address] [place] [phone] 12/07/2024 2:40 PM CDT Office Visit Department of Oncology in [place], [place] [address] [place] [phone] Meghna Soto M.B., B.Ch. [address] [place] [phone] 12/08/2024 8:00 AM CDT Telemedicine Department of Oncology in [place], [place] [address] [place] [phone] Haim Mueller APRN, C.N.P., D.N.P. [address] [place] [phone] Brooklyn Lombardi P.A.-Sajan., M.S. [address] [place] [phone] 12/15/2024 10:00 AM CDT Virtual Visit Department of Cardiovascular Medicine in [place] [phone] [place] [address] [phone] Soto Ta M.D., Ph.D. [address] [place] [phone] 02/05/2025 9:30 AM CDT Infusion Department of Infusion Therapy in [place], [place] [address] [place] [phone] Meghna Soto M.B., B.Ch. [address] [place] [phone] Scheduled Referrals Name Type Priority Associated Diagnoses [...] documented as of this encounter Care Teams Prefitter Doors Relationship Specialty Start Date End Date Elsewhere, Pcp PCP - General Internal Medicine 07/25/24 documented as of this encounter
[2024-12-06 22:01] LABS: Erythrocyte SedimentationRate* 7 mm/hr (2-20)
[2024-12-06] MEDS: 0.9 % SODIUM CHLORIDE 1000 ml 1,000 ML 500 ML IV (22:05)
[2024-12-06] MEDS: METOCLOPRAMIDE HCL 10 MG in 0.9 % SODIUM CHLORIDE 100 ml 100 ML 306 MG IVPB (23:11)
[2024-12-06] MEDS: KETOROLAC 15 MG/ML inj IVP (23:11)
[2024-12-06] MEDS: diphenhydrAMINE 50 MG/ML inj 25 MG IVP (23:45)
[2024-12-07] VITALS: PULSE 67; RESP 18; O2SAT 97
[2024-12-07 00:12] VITALS: BP 130/78; PULSE 71; RESP 17; O2SAT 94
[2024-12-07 00:15] VITALS: PULSE 72; RESP 17; O2SAT 94
[2024-12-07] MEDS: KETAMINE 50 MG/0.5 ML 20 MG in 0.9 % SODIUM CHLORIDE 100 ml 100 ML 200.4 MG IVPB (00:25)
[2024-12-07 00:30] VITALS: PULSE 78; RESP 17; O2SAT 95
[2024-12-07 00:46] VITALS: PULSE 79; RESP 17; O2SAT 93
== END 2024-12-07 01:10 | disposition home or self-care (01) ==
PROVIDERS: Emergency Provider Family Medicine; PCP Family Medicine
DX: G43.909 Migraine, unspecified, not intractable, without status migrainosus (principal)
CPT/HCPCS: 36415; 70450; 70496; 70498; 80053; 85025; 85651; 86140; 93005; 94761; 96365; 96367; 96375; 99284; 99285; 99291; J1200; J1885; J2405; J2765; J3010; J3490; J7030; Q9967

== ENCOUNTER 2025-06-13 10:02 | Emergency (ER) | payer BC, SELFPAY ==
--- OUTSIDE RECORDS SUMMARY | 2025-04-30 09:00 | XMS_ITS | Encounter Summary ---
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 [address] [place] [phone] Phone: tel: fax: [facility] Referral ID Status Reason Start Date Expiration Date Visits Re quested Visits Authorized [id number] Closed 04/05/2025 07/06/2026 1 1 Encounter Details Date Type Department Care Team (Latest Contact Info) Description 04/30/2025 9:00 AM CDT Comprehensive Visit Department of Physical Medicine and Rehabilitation in [place], [place] [address] [place] [phone] Brie Durant M.D. 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 No 10/30/2024 Hunger Vital Sign Answer Date Recorded Within [...] Recor ded PHQ-9 Total Score (max 27) 5 02/05 Housing Stability Answer Date Recorded What is your living situation today? I have a [employer] place to live 10/30/2024 Comments Unknown Sex and Gender Information Value Date Recorded Sex Assigned at Female 07/25/2024 9:49 AM ALLIED HEALTH PROFESSIONAL Legal Sex Female 6:01 PM ALLIED HEALTH PROFESSIONAL Gender Identity Female 07/25/2024 9:49 AM ALLIED HEALTH PROFESSIONAL Sexual Orientation Straight 07/25/2024 9: 49 AM ALLIED HEALTH PROFESSIONAL documented as of this encounter Consult Notes * Freda Barajas P.T., D.P.T., OncCS - 04/30/2025 9:00 AM CDT Physical Therapy Cancer Rehabilitation/ Lymphedema Outpatient Evaluation and Treatment By co-signing this note, the provider certifies the therapy being provided to this patient is reasonable and necessary for the diagnosis or treatment of this patient. Patient's Name: Maryam L. Armen Referring Provider: Brie Durant M.D. Rehab Diagnosis: 1. Malignant Neoplasm Of Breast Upper Outer Quadrant Female Right (HCC) 2. 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 Onset Date: 04/30/25 Payor: [employer] [facility] CARE / Plan: [facility] HMO / Product Type: Medicaid HMO / Total Visit Count: 1 SUBJECTIVE Maryam Ayers is a 54 y.o. female who presents to therapy for evaluation and treatment for cancer rehab. Her symptoms consist of axillary fullness/edema, risk for arm lymphedema, risk for limited shoulder rom. Activity and Prior Treatment Exercise/Activity Level: patient attends the gym 4-5 days per week and enjoys a variety of machines. Current Home Program: compression tank tops. 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 Patient/Caregiver Goals: Improve swelling. R handed. PT Next Certification Date: 07/29/25 PERTINENT MEDICAL / SURGICAL HISTORY: Problem List[1] Surgical History[2] OBJECTIVE PHYSICAL EXAM Upper Extremity Physical Exam (ALND): Shoulder Affected Bilateral: Sitting flexion: Full + 180 but notices tightness R compared to L. Sitting abduction: Full + 170 less tightness noted. Posture: Normal Chest Wall: Incision: Well-healed Edema:Redundant tissue along incisions especially superior however no pitting or true lymphedema noted. Axilla: Incision: Well-healed Edema:R greater than L area of redundant tissue in axilla, soft, non pitting, no fibrous tissue noted. Quite focused area. Cording:None. Affected Extremity: right No edema present Skin quality symmetrical with the non-involved side Sensation: Impaired on the posterior and medial aspect of the proximal affected arm Impaired in the surgical field of the chest wall TREATMENT Therapeutic exercise: Therapist initiated home exercise program today with demonstration, education, and verbal/tactile cues: supine shoulder flexion 3 reps 30 second holds, supine lower trunk rotation and pectoral stretch 3 reps 30 second holds, side-lying thoracic opening stretch bilaterally 3 reps. Therapist educated to hold stretches in a tolerable range of motion vs pushing into pain. Recommend performing 10-15 minutes per day. Patient able to perform stretches back today with good tolerance. Also initiated lat pull downs and rowing with education on strengthening the upper back. 2x20 reps provided purple frantzand. Therapeutic activity: - UE Lymphedema Education Provided: Reviewed the anatomy and function of the lymphatic system and how disruption due to surgery or radiation can impair lymphatic drainage from the affected arm and adjacent area of the chest and back. Instructed the patient to avoid any circumstance that could potentially increase demand to the lymphatic system such as acute trauma or injuries, excessive heat, overuse injury, or infection. Cautioned patient regarding the increased risk for cellulitis infection on the affected extremity and adjacent chest and back. Advised avoidance of any open cuts, wounds, or insect bites; and meticulous skin care if any occur. Described the appearance of a cellulitis infection and the steps to take if suspected to expedite potential treatment with antibiotics. - Educated in use of compression to treat breast edema. Educated in well-fitting bra principles: breast lift, separation, and complete coverage over entire breast with wide bra straps. Recommend wearof well-fitting bra 12-23 hours/day. Therapist then provided and educated in use of chip foam inserts to wear against skin under bra to provide extra compression to areas of edema. Provided multiple sizes for patient to place where she is specifically having edema that day. Home Exercise Program/Education: as above. Assessment Patient presents with bilateral R greater than L axillary fullness/likely redundant tissue. Therapist initiated compression with foam packs today and education on a well fitting bra to see if this improves symptoms. I also educated in further pectoral stretching and upper back strengthening as patient is quite active. We will follow up as needed. Rehab Potential: Mrs. Ayers has good potential to achieve established physical therapy goals within the time frame outlined below, provided she actively participates in her physical therapy treatment plan and home program. Complicating Factors: Comorbid Conditions: Cancer Personal Factors: Number of Examination Elements (PT): 3 Clinical Presentation (PT): Evolving Clinical Decision Making (PT): Low Functional Goals and Timeframes: Goal #1: Patient will be independent with managment of edema using appropriate compression. Goal #1 Date: 07/29/25 The severity of Mrs. Ayers's functional limitation will be re-assessed within the next 10 visits. Plan Mrs. Ayers was educated regarding evaluative findings, diagnosis, prognosis, potential risks and benefits of rehabilitation interventions. A collaborative effort was used to establish goals and planof care. She was informed of her right to make decisions regarding her care, including refusal of examination or treatment or selection of therapy services from another provider if desired. The treatment plan may be progressed or modified based upon her response to treatment. Treatment Plan: Start of Plan of Care: 04/30/2025 Number of Visits: up to visits Therapy Amount: 1 visit per day Frequency: 1 time every 2-4 weeks Plan: Plan of care initiated Plan Comments: Follow up as needed. Treatment interventions may include: Therapeutic functional activity, Neuromuscular re-education, Self-care/home management, Therapeutic exercise Daytime Compression Program: Compression bra, Compression packs (comment) Nighttime Compression Program: Compression bra, Compression packs (comment) PT: Time Spent with Patient Evaluations PT Eval - Low Complexity: 10 min Therapeutic Interventions Therapeutic Activity (min): 15 min Therapeutic Exercise (min): 12 min Time Tracking Total Timed Units (min): 27 min Total Treatment Time (min): 37 min Freda Barajas P.T., D.P.T., Onc [1] Patient Active Problem List Diagnosis Migraine Headache Hypertension Essential Primary Dyspnea On Exertion Patent Foramen Ovale (HCC) 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) Allergy Penicillin Antibiotic Personal History 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 Malignant 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) [2] Past Surgical History: Procedure Laterality Date BIOPSY SENTINEL LYMPH NODE AXILLARY - PREOPERATIVE LYMPHOSCINTIGRAPHY Right 10/30/2024 Procedure: RIGHT AXILLARY SENTINEL LYMPH NODE BIOPSY; Surgeon: Brie Durant M.D.; Location: [facility] OR SECTION january [id number] 2010 MASTECTOMY - SIMPLE Bilateral 10/30/2024 Procedure: BILATERAL SIMPLE MASTECTOMY.; Surgeon: Brie Durant M.D.; Location: [facility] OR OTHER Bilateral 10/30/2024 Procedure: FLAT CLOSURE, ASSISTANCE WITH CLOSURE; Surgeon: Foster Mcclendon B.M., B.Ch., Ph.D.; Location: [facility] OR TONSILLECTOMY 1996 Cosigned by Brie Durant M.D. at 04/30/2025 3:42 PM CDT documented in this encounter Plan of Treatment Upcoming Encounters Date Type Department Care Team (Latest Contact Info) Description 06/27/2025 11:00 AM ALLIED HEALTH PROFESSIONAL Appointment Department of Laboratory Medicine and Pathology, [facility], in [address] [phone] Brooklyn Lombardi P.A.-C., M.S. [address] [place] [phone] 07/23/2025 10:30 AM ALLIED HEALTH PROFESSIONAL Infusion Department of Infusion Therapy in [address] [phone] Meghna Soto M.B., B.Ch. [address] [place] [phone] 08/17/2025 8:30 AM ALLIED HEALTH PROFESSIONAL Clinical Communication Virtual Review in [address] [phone] 08/22/2025 10:20 AM ALLIED HEALTH PROFESSIONAL Office Visit Department of Oncology in [address] [phone] Meghna Soto M.B., B.Ch. 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
--- OUTSIDE RECORDS SUMMARY | 2025-04-30 10:30 | XMS_ITS | Encounter Summary ---
Author Organization [facility] Address [address] [place] [id number] Care Team Providers Care Swing Tender Name Role Phone Elsewhere, Pcp Primary Care Provider Unavailabl e Reason for Visit * Reason Comments Injections Zoladex * Episode Based Medications (Routine) - Authorized Specialty Diagnoses / Procedures Referred By Safia garcia Referred To Contact Diagnoses Malignant Neoplasm Of Breast Upper Outer Quadrant Female Right (HCC) Procedures ID GOSERELIN ACETATE IMPLANT Meghna Soto M.B., B.Ch. [address] [place] [phone] Phone: tel: fax: Meghna Soto M.B., B.Ch. [address] [place] [phone] Phone: tel: fax: Referral ID Status Reason Start Date Expiration Date V isits Requested Visits Authorized [id number] Authorized 11/13/2024 02/13/2026 99 99 Encounter Details Date Type Department Care Team (Late st Contact Info) Description 04/30/2025 10:30 AM CDT Infusion Department of Infusion Therapy in [place], [place] [address] [place] [phone] Meghna Soto M.B., B.Ch. [address] [place] [phone] Malignant Neoplasm Of Breast Upper Outer Quadrant Female Right (HCC) (Primary Dx) Social History Tobacco Use Types Packs/Day Years Used Date Smoking Tobacco: Never Passive Smoke Exposure: Past Smokeless Tobacco: Never Alcohol Use Standard Drinks/Week Comments Never 0 (1 standard drink = 0.6 oz pur e alcohol) [facility] Utilities Answer Date Recorded [...] your living situation today? I have a [facility] place to live 10/30/2024 Comments Unknown Sex and Gender Information Value Date Recorded Sex Assigned at Female 07/25/2024 9:49 AM ANDROID PROGRAMMER Legal Sex Female 6:01 PM ANDROID PROGRAMMER Gender Identity Female 07/25/2024 9:49 AM ANDROID PROGRAMMER Sexual Orientation Straight 07/25/2024 9: 49 AM ANDROID PROGRAMMER documented as of this encounter Last Filed Vital Signs Vital Sign Reading Time Taken Comments Blood Pressure 125/89 04/30/2025 10:04 AM CDT Pulse 66 04/30/2025 10:04 AM CDT Temperature 36.5 C (97.7 F) 04/30/2025 10:04 AM CDT Respiratory Rate 16 04/30/2025 10:04 AM CDT Oxygen Saturation - - Inhaled Oxygen Concentration - - Weight - - Height - - Body Mass Index - - documented in this encounter Plan of Treatment Upcoming Encounters Date Type Department Care Team (Latest Contact Info) Description 06/27/2025 11:00 AM ANDROID PROGRAMMER Appointment Department of Laboratory Medicine and Pathology, [facility], in [address] [phone] Brooklyn Lombardi P.A.-C., M.S. [address] [place] [phone] 07/23/2025 10:30 AM ANDROID PROGRAMMER Infusion Department of Infusion Therapy in [place], [place] [address] [place] [phone] Meghna Soto M.B., B.Ch. [address] [place] [phone] 08/17/2025 8:30 AM ANDROID PROGRAMMER Clinical Communication Virtual Review in [address] [phone] 08/22/2025 10:20 AM ANDROID PROGRAMMER Office Visit Department of Oncology in [address] [phone] Meghna Soto M.B., B.Ch. [address] [place] [phone] documented as of this encounter Visit Diagnoses Diagnosis Malignant Neoplasm Of Breast Upper Outer Quadrant Female Right (HCC)- Primary documented in this encounter Administered Medications Inactive Administered Medications - up to 3 most recent administrations Medication Order MAR Action Action Date Dose Rate Site goserelin implant 10.8 mg (Zoladex) 10.8 mg, subcutaneous, Once, On Wed04/30/25 at 1100, For 1 dose, Give after administration of lidocaine.Indications:Kate gnant Neoplasm Of Breast Upper Outer Quadrant Female Right (HCC) Given 04/30/2025 10:49 AM CDT 10.8 mg Right Lower Abdomen lidocaine 10 mg/mL (1 %) injection 1 mL (Xylocaine) 1 mL, subcutaneous, Once, On 04/30/25 at 1100, For 1 dose, Give before administering Goserelin Acetate.Indications:Malign ant Neoplasm Of Breast Upper Outer Quadrant Female Right (HCC) Given 04/30/2025 10:43 AM CDT 1 mL Right Lower Abdomen documented in this encounter Additional Health Concerns Assessment Noted Time PHQ-9 Depression Total Score: 5 02/06/20 25 2:44 PM CDT documented as of this encounter Care Teams Swing Tender Relationship Specialty Start Date End Date Elsewhere, Pcp PCP - General Internal Medicine 07/25/24 documented as of this encounter
--- OUTSIDE RECORDS SUMMARY | 2025-05-04 09:00 | XMS_ITS | Encounter Summary ---
Author Organization [facility] Address [address] [place] [address] Care Team Providers Care Parking Lot Manager Name Role Phone Elsewhere, Pcp Primary Care Provider Unavailabl e Reason for Referral * Outpatient (Routine) - Closed Specialty Diagnoses / Procedures Referred By Contac t Referred To Contact Radiation Oncology Tim Navarro M.D., Ph.D. [address] [place] [phone] Phone: tel: fax: Regina Martell MPAS, P.A.-C. [address] [place] [phone] Phone: tel: fax: Referral ID Status Reason Start Date Expiration Date Visits Re quested Visits Authorized [id number] Closed 01/03/2025 07/05/2026 1 1 Reason for Visit * Outpatient (Routine) - Closed Specialty Diagnoses / Procedures Referred By Contac t Referred To Contact Radiation Oncology Tim Navarro M.D., Ph.D. [address] [place] [phone] Phone: tel: fax: Regina Martell MPAS, P.A.-C. [address] [place] [phone] Phone: tel: fax: Referral ID Status Reason Start Date Expiration Date Visits Re quested Visits Authorized [id number] Closed 01/03/2025 07/05/2026 1 1 Encounter Details Date Type Department Care Team (Latest Contact Info) Description 05/04/2025 9:00 AM CDT - 05/04/2025 9:21 AM CDT Hospital Encounter Department of Radiation Oncology in [place], [place] 200 [place] [phone] Regina Martell MPAS, P.A.-Sajan. 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); Cancer Breast Ductal In Situ Left Social History Tobacco Use Types Packs/Day Years Used Date Smoking Tobacco: Never Passive Smoke Exposure: Past Smokeless Tobacco: Never Alcohol Use Standard Drinks/Week Comments Never 0 (1 standard drink = 0.6 oz pur e alcohol) [facility] Utilities Answer Date Recorded In the past 12 months has e [employer], gas, oil, or water [employer] threatened to shut off services in your [...] have a [facility] place to live 10/30/2024 Comments Unknown Sex and Gender Information Value Date Recorded Sex Assigned at Female 07/25/2024 9:49 AM BRASS BURNISHER Legal Sex Female 6:01 PM BRASS BURNISHER Gender Identity Female 07/25/2024 9:49 AM BRASS BURNISHER Sexual Orientation Straight 07/25/2024 9: 49 AM BRASS BURNISHER documented as of this encounter Medications at Time of Discharge acetaminophen (TylenoL) 500 mg tablet Take 2 tablets (1,000 mg total) by mouth every 6 (six) hours as needed for pain. 10/31/2024 amLODIPine (Norvasc) 2.5 mg tablet Take 2.5 mg by mouth daily. 12/08/2024 cholecalciferol (Vitamin D3) 25 mcg (1,000 Unit) capsule Take 1 capsule by mouth daily. 09/21/2017 citalopram (CeleXA) 10 mg tablet Take 1 tablet by mouth at bedtime. 07/04/2024 Eliquis 2.5 mg tablet TAKE 1 TABLET(2.5 MG TOTAL) BY MOUTH 2 TIMES A DAY. TAKE FIRST DOSE THE MORNING OF 11/02 180 tablet 3 01/26/2025 exemestane (Aromasin) 25 mg tablet Take 1 tablet (25 mg total) by mouth daily. Take after a meal. 90 tablet 5 04/04/2025 letrozole (Femara) 2.5 mg tablet Take 1 tablet (2.5 mg total) by mouth daily. Take with or without food. 90 tablet 6 12/07/2024 lidocaine viscous (lidocaine) 2 % mucosal solution Apply 5 mL to the mouth or throat 4 (four) times a day. Mix 5 ml Lidocaine with 5 ml of water and use syringe or straw to back of throat. Wait 10-20 minutes to eat or drink. 100 mL 1 01/03/2025 LORazepam (Ativan) 1 mg tablet Take 1 mg by mouth as needed. Prior to flying 06/28/2024 melatonin 1 mg tablet Take 3 mg by mouth at bedtime as needed for sleep. 01/17/2018 oxyCODONE (Roxicodone) 5 mg immediate release tabletIndication s:Acute Pain Take 1 tablet (5 mg total) by mouth every 4 (four) hours as needed for pain Indication: Acute Pain. 10 tablet 11/03/2024 sennosides-docus ate sodium (Senna with Docusate Sodium) 8.6-50 mg per tablet Take 1 tablet by mouth 2 (two) times a day. 100 tablet 10/31/2024 3:20 PM CDT 10/31/2024 Vitron-C 65 mg iron- [address] tablet TAKE 1 TABLET BY MOUTH DAILY. DO NOT CRUSH OR CHEW 90 tablet 04/02/2025 documented as of this encounter Progress Notes * Regina Martell, REMY, Darlene. - 05/04/2025 9:00 AM CDT SUBJECTIVE Requesting Provider Tim Navarro M.D., Ph.D. Chief Complaint/Reason for Visit Routine follow up for management of potential radiotherapy toxicities. Established patient of Tim Navarro M.D., Ph.D. ([phone]) Follow-up conducted via real-time audio/video technology by Regina Martell P.A.-C. in [facility] to the patient in her home. The patient gave consent for the video visit. History of Present Illness Mrs. Maryam Ayers is a pleasant 54 y.o. female from [place], [place] who presents today for routine follow up approximately 3 months after completion of proton radiotherapy to the right chest wall and regional nodes. This was completed in the context of right breast invasive lobular carcinoma, grade 2, ER+ (91-100%) DC+ (91-100%) HER2- (1+ IHC), Ki-67 5-10%, [id number]; s/p bilateral mastectomywith right axillary sentinel lymph node biopsy and flat closure on 10/30/2024, pT1b(m)N1a(sn). She then received 4005 cGy in 15 fractions completed on 01/05/2025. Her full oncologic history can be reviewed in her chart. Radiotherapy History Treatment Course: 1pBreast Plan ID Fractions Dose / Fraction (cGy) Dose Treated (cGy) Dose Planned (cGy) First Treatment Last Treatment Elapsed Days [id number] 12/18/2024 01/05/2025 18 Course Summary 12/18/2024 01/05/2025 18 Interval History Mrs. Maryam Ayers reports having tolerated radiation well. She presently denies skin concerns other than some mild hyperpigmentation. She reports good upper extremity range of motion with some tightness but she has been doing her stretches which helps. She saw lymphedema PT/OT earlier this week withsome concern for swelling near her axilla. They discussed that this is likely just redundant tissueand they were not concerned for lymphedema. They provided her with some compression foam packs and education on a well-fitting bra to see if this improves symptoms. They also discussed more stretching and strengthening recommendations and we will see her back on an as-needed basis. Since completing radiation she was started on letrozole and Zoladex. She recently switched therapy from letrozole to exemestane given symptoms of joint pain and insomnia. She is hopeful that she willtolerate the exemestane better, but has not been on long enough to know. Maryam reports that she may be interested in meeting with Plastic Surgery again to discuss potential cosmetic improvement of her flat closure. She will reach out to that team if desired. Mrs. Maryam Ayers denies fevers, chills, sweats, new bony pain, unintended weight loss. No other major changes in her health or other systemic concerns or complaints. OBJECTIVE There were no vitals taken for this visit. (Video visit) Pain: 0/10 Physical Exam ECOG score: 0 - Fully active, able to carry on all pre-disease performance without restriction Physical exam limited (video visit) General: In no apparent distress. Resp: Breathing unlabored. Neurologic: Alert and oriented x 3. Facial movement appears normal. Moving extremities against gravity. ASSESSMENT / PLAN 1. Malignant Neoplasm Of Breast Upper Outer Quadrant Female Right (HCC) 2. 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 Cancer Breast Ductal In Situ Left Recurrence Status: No evidence of disease after initial definitive treatment of localized disease. It was a pleasure to see Mrs. Maryam Ayers virtually today approximately 3 months after completion of proton radiotherapy to the right chest wall and regional nodes. She is well recovered from her radiation course. I reviewed breast cancer surveillance recommendations, including clinical chest wall exams. She hasongoing follow-up scheduled with Medical Oncology. We reviewed the non-research patient toxicities.She does not need to continue to follow with Radiation Oncology but we are happy to see her back atany time. Maryam Ayers verbalized understanding and is in agreement with this plan. She has our contact information and was encouraged to reach out with any questions or concerns as they arise. Education Ready to learn, no apparent learning barriers were identified. Explained diagnosis and treatment plan; patient expressed understanding of the content. I personally spent 32 minutes in care of the patient today. Time includes both non face to face andface to face patient care. REMY Lyn P.A.-Baltazar documented in this encounter Plan of Treatment Upcoming Encounters Date Type Department Care Team (Latest Contact Info) Description 06/27/2025 11:00 AM BRASS BURNISHER Appointment Department of Laboratory Medicine and Pathology, [facility] in [address] [phone] Brooklyn Lombardi P.A.-C., M.S. [address] [place] [phone] 07/23/2025 10:30 AM BRASS BURNISHER Infusion Department of Infusion Therapy in [address] [phone] Meghna Soto M.B., B.Ch. [address] [place] [phone] 08/17/2025 8:30 AM BRASS BURNISHER Clinical Communication Virtual Review in [address] [phone] 08/22/2025 10:20 AM BRASS BURNISHER Office Visit Department of Oncology in [address] [phone] Meghna Soto M.B., B.Ch. 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
[2025-06-13 10:06] VITALS: BP 143/99; PULSE 72; RESP 18; TEMP 36.5; O2SAT 97; BMI 30.8
--- NOTE | 2025-06-13 10:56 | ED.GENADULT ---
HPI - General Adult General Chief complaint: Chest Pain Stated complaint: Chest tight, short of breath Time Seen by Provider: 06/13/25 10:46 History of Present Illness HPI narrative: Hx of breast cancer, double mastectomy with radiation. Also hx of PFO. Treatment at [place]. Headache woke her up out of her sleep then developed chest pain/ tightness. Chest tightness seems to be getting worse. High blood pressure at home. Has had these feelings in the past but this time is worse. 54-year-old woman presenting to the emergency department with concern of headache and then some chest tightness. Apparently headache woke from sleep some hours ago. Has since evolved some tightness in her chest. Not exactly short of breath. Did measure elevated pressures at home. Underlying history of double mastectomy and did receive radiation. Other concerning history is a patent foramen ovale. She is not having visual changes. Is experiencing nausea. Headache is frontal. It sounds as though has had similar feelings before but this is more intense. No cough or cold symptoms. No fever. Does have a history of migrainous headaches and some anxiety. No sinus congestion. Related Data Home Medications ?Medication ?Instructions ?Recorded ?Confirmed citalopram 10 mg tablet 10 mg PO DAILY 07/04/22 06/13/25 melatonin 08/01/24 apixaban 2.5 mg tablet (Eliquis) 2.5 mg PO BID 12/06/24 06/13/25 zolidex 12/06/24 amlodipine 2.5 mg tablet 2.5 mg PO DAILY 06/13/25 06/13/25 exemestane 25 mg tablet 25 mg PO DAILY 06/13/25 06/13/25 iron,carbonyl 65 mg-vitamin C 125 1 tab PO DAILY 06/13/25 06/13/25 mg tablet,delayed release (Vitron-C) Allergies Allergy/AdvReac Type Severity Reaction Status Date / Time amoxicillin (From Augmentin) Allergy Mild Hives Verified 12/06/24 22:14 clavulanic acid (From Allergy Mild Hives Verified 12/06/24 22:14 Augmentin) red dye Allergy Mild Hives Verified 12/06/24 22:14 morphine AdvReac Intermediate Verified 12/06/24 22:14 Review of Systems Status of ROS: Reports: 6 or more systems reviewed and unremarkable except as noted in History and below [facility] Medical History Migraine ?G43.909 - Migraine, unspecified, not intractable, without status migrainosus (ICD-10) FELIPA (generalized anxiety disorder) ?F41.1 - Generalized anxiety disorder (ICD-10) Surgical History History of 2 sections ?Z98.891 - History of uterine scar from previous surgery (ICD-10) History of tonsillectomy and adenoidectomy ?Z90.89 - Acquired absence of other organs (ICD-10) Social History Smoking Status: Never smoker Do you use any of these nicotine containing products: None Second hand tobacco smoke exposure: No How often do you have a drink containing alcohol: never How often do you have six or more drinks on one occasion: Never AUDIT-C Alcohol total score: 0 Non-prescribed substance use: denies use Exam Narrative: Exam Narrative: Pleasant. NAD. Speaking fluidly. Cranial nerves 2-12 intact. Pupils 3 mm and equal. Appears a little photophobic. Extraocular movements are full. Neck is supple lungs are clear heart in regular rate and rhythm. I cannot identify murmur. There is no swelling about the neck. Moving all extremities with good strength. Well-perfused. Not repeatedly able to reproduce this chest pressure that she is experiencing. Const: Vital Signs, click to edit/add: Vital Signs - 24 hr 06/13/25 10:06 06/13/25 11:08 06/13/25 11:33 Temperature 97.7 F Pulse Rate 67 Pulse Rate [Left P ulse Oximeter] 72 Respiratory Rate 18 Blood Pressure 124/103 H Blood Pressure [Ri ght Upper Arm] 143/99 H Pulse Oximetry 97 97 Oxygen Delivery Me thod Room Air 06/13/25 12:02 06/13/25 12:32 Temperature Pulse Rate Pulse Rate [Left P ulse Oximeter] Respiratory Rate Blood Pressure 137/91 H 140/79 H Blood Pressure [Ri ght Upper Arm] Pulse Oximetry Oxygen Delivery Me thod Documenting provider has reviewed patient's vital signs: yes Course Vital Signs Vital signs: Initial Vital Signs Temperature 97.7 F 06/13/25 10:06 Temperature Source Temporal Artery Scan 06/13/25 10:06 Pulse Rate 72 06/13/25 10:06 Pulse Rhythm Regular 06/13/25 10:06 Respiratory Rate 18 06/13/25 10:06 Blood Pressure 143/99 H 06/13/25 10:06 Blood Pressure Mean 113 H 06/13/25 10:06 Blood Pressure Position Sitting 06/13/25 10:06 Pulse Oximetry 97 06/13/25 10:06 Oxygen Delivery Method Room Air 06/13/25 10:06 Vital Signs Temperature 97.7 F 06/13/25 10:06 Pulse Rate 72 06/13/25 10:06 Respiratory Rate 18 06/13/25 10:06 Blood Pressure 143/99 H 06/13/25 10:06 Pulse Oximetry 97 06/13/25 10:06 Oxygen Delivery Method Room Air 06/13/25 10:06 Temperature 97.7 F 06/13/25 10:06 Pulse Rate 67 06/13/25 11:08 Respiratory Rate 18 06/13/25 10:06 Blood Pressure 140/79 H 06/13/25 12:32 Pulse Oximetry 97 06/13/25 11:08 Oxygen Delivery Method Room Air 06/13/25 10:06 Medications Administered Medications: Discontinued Medications Generic Name Dose Route Start Last Admin Trade Name Freq PRN Reason Stop Dose Admin Sodium Chloride 1,000 mls @ 1,000 mls/hr 06/13/25 11:12 06/13/25 12:37 0.9 % Sodium Chloride 1000 Ml IV 06/13/25 12:11 Infused .Q1H ONE Infusion Ketamine HCl 20 mg/ Sodium 100.2 mls @ 200.4 mls/hr 06/13/25 12:32 06/13/25 13:55 Chloride IVPB 06/13/25 12:33 Infused ONCE ONE Infusion Diphenhydramine HCl 25 mg/ 100.5 mls @ 301.5 mls/hr 06/13/25 12:32 06/13/25 13:55 Sodium Chloride IVPB 06/13/25 12:33 Infused ONCE ONE Infusion Ketorolac Tromethamine 15 mg 06/13/25 11:12 06/13/25 11:31 Ketorolac 15 Mg/Ml Inj IVP 06/13/25 11:13 15 mg ONCE ONE Administration Ondansetron HCl 4 mg 06/13/25 11:14 06/13/25 11:31 Ondansetron 2 Mg/Ml Inj IVP 06/13/25 11:15 4 mg ONCE ONE Administration Medical Decision Making MDM Narrative Medical decision making narrative: I understand concerns. I am not sure that I could relate this pain to PFO though headache has been apparently suspected to be related to CVA although with last evaluation suspected more of a vascular relation otherwise. Records would indicate much more intense symptoms at that time. Certainly would evaluate for potential ischemic cardiovascular event/injury. Does not have the kind of symptoms I might expect with a valvular injury. Last seen in this emergency department in November of this year treated for migrainous headache and in July of last year with chest wall pain. Does not have fever or demonstrating meningeal signs other than headache. Less likely to have vascular dissection as explanation for chest pain. Does not have radicular symptoms. Does have a history of TIAs, well actually CVA, I discover upon record review thought due to this PFO. I do not appreciate any deficits here right now. On review of record it does appear as though pain was quite intense in November presentation. Apparently anticoagulated with apixaban. Could certainly predispose to head bleed. Will try to offer symptom relief. Check standard labs. Does not have any deficits otherwise. Monitor on lunchroom monitor and oximetry. Chest x-ray independently reviewed by me looks WNL. This is a one-view. Labs are reassuring. Did initiate IV fluids with normal saline, singular dosing of Toradol considering anticoagulant and Zofran as had been experiencing nausea. On review is a little improved but still with headache and chest discomfort. Discussed other options for pain management. We settled on diphenhydramine and pain dosed ketamine infusion. On reassessment is improved though still a little uncomfortable. This appears tolerable. She would like to get a chance to rest now. Stable during time in the ER. No escalation of symptoms. See patient discharge plan for further discussion I am happy you are feeling better. Stay well-hydrated. Rest this evening. Return for increasing persistent chest pain shortness of breath, marked increase in headache, repeated vomiting, associated fever. Medical Records Medical records reviewed: Yes I reviewed the patient's medical records Lab Data Lab results reviewed: Yes I reviewed the patient's lab results Labs: Lab Results 06/13/25 06/13/25 06/13/25 Range/Units 11:12 11:24 12:32 WBC 4.82 (4.50-11.00) K/uL RBC 5.02 (4.00-5.20) m/uL Hgb 14.3 (12.0-16.0) gm/dL Hct 42.9 (33.0-51.0) % MCV 86 (80-100) fL MCH 29 (26-34) pg MCHC 33 (32-36) gm/dL RDW Coeff of Pardeep 12.6 (11.5-15.5) % Plt Count 234 (140-440) K/uL Neut % (Auto) 55.6 (42.0-72.0) % Lymph % (Auto) 27.2 (20-44) % [place] % (Auto) 8.9 (0.0-11.0) % Eos % (Auto) 7.9 H (0.0-7.0) % Baso % (Auto) 0.2 (0.0-3.0) % Neut # (Auto) 2.68 (1.7-7.0) K/uL Lymph # (Auto) 1.31 (0.90-2.90) K/uL [place] # (Auto) 0.40 (0.00-0.90) K/UL Eos # (Auto) 0.40 (0.00-0.50) K/uL Baso # (Auto) 0.01 (0.00-0.30) K/uL Abs Immat Gran (auto) 0.01 (0.00-0.30) K/uL Imm/Tot Granulo (auto) 0.2 % Sodium 140 (135-149) mmol/L Potassium 3.8 (3.6-5.1) mmol/L Chloride 103 (96-114) mmol/L Carbon Dioxide 31 (20-32) mmol/L Anion Gap 6 L (7-15) mEq/L BUN 11 (7-30) mg/dL Creatinine 0.7 (0.5-1.5) mg/dL Estimated Creat Clear 82.67 Estimated GFR 103 ml/min Glucose 79 (60-115) mg/dL Calcium 9.7 (8.4-10.6) mg/dL Troponin I < 0.01 (0.01-0.04) ng/mL C-Reactive Protein < 0.5 L (0.5-1.0) mg/dL NT-Pro-B Natriuret Pep 32 (See Note) pg/mL Lab Acknowledgement Test Added POC Troponin I 0.00 L (0.01-0.04) ng/ml ECG Data Attestation: I personally reviewed and interpreted this ECG as follows: (Sinus rhythm. Mildly prominent P-waves. Rate of 71) Discharge Plan Discharge Clinical Impression: Frontal headache, Atypical chest pain Patient Disposition: Home, Self-Care Condition: Improved Additional Instructions: I am happy you are feeling better. Stay well-hydrated. Rest this evening. Return for increasing persistent chest pain shortness of breath, marked increase in headache, repeated vomiting, associated fever. Prescriptions: No Action citalopram 10 mg tablet 10 mg PO DAILY amlodipine 2.5 mg tablet 2.5 mg PO DAILY exemestane 25 mg tablet 25 mg PO DAILY Vitron-C 65 mg iron- 125 mg tablet,delayed release (DR/EC) 1 tab PO DAILY melatonin Eliquis 2.5 mg tablet 2.5 mg PO BID zolidex Follow Up/Referrals: Shanelle Renee MD [Primary Care Provider, Family Practice] Stand Alone Forms: Clerk Info Instructions
[2025-06-13 11:08] VITALS: PULSE 67; O2SAT 97
--- OUTSIDE RECORDS SUMMARY | 2025-06-13 11:17 | XMS_ITS ---
Author Organization [facility] Address [address] [place] [address] Care Team Providers Care Diving Judge Name Role Phone Elsewhere, Pcp Primary Care Provider Unavailabl e Active Problems * This document contains information received from the source organization and may not represent a complete record from that organization. Problem Noted Date Diagnosed Date 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 11/20/2024 Cancer Breast Ductal In Situ Left 11/08/2024 Cancer Staging:Pathologic stage from 10/30/2024:Stage Unknown(pTis (DCIS), pNX, ER+, PA+, HER2: Not Assessed) - Signed by Laura iKnsey APRN, C.N.P., M.S.N. 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 Past Radiation Episodes * Radiation Therapy: Right BreastOverview* First Treatment Date Last Treatment Date Treatment Site Technique Goal Episode Provider 12/18/2024 01/05/2025 Right Breast Curative * Linked Problems Malignant Neoplasm Of Breast Upper Outer Quadrant Female Right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 Treatment Courses* Course 1pBreast 12/18/2024 - 01/05/2025 Treatment Period Fraction Dose Fractions Total Dose Plans Planned [id number] 12/18/2024 - 01/05/2025 267 cGy 15 15 4 ,005 cGy Reference Points Delivered dpv 4005 p 12/18/2024 - 01/05/2025 4,005 cGy
--- OUTSIDE RECORDS SUMMARY | 2025-06-13 11:17 | XMS_ITS | Clinical Summary ---
Author Organization [facility] Address [address] [place] [id number] Care Team Providers Care Cell Biology Scientist Name Role Phone Shanelle Renee MD Primary Care Provide r Roxy Whaley RN Unavailable [phone] Kian English MD Unavailable [phone] Allergies Active Allergy Reactions Criticality Noted Date Comments Amoxicillin-Pot Clavulanate Hives 08/24/19 07 Clavulanic Acid Hives Low 07/04/2022 Morphine Itching 04/04/2013 Red Dye Nausea Only Low 10/02/2020 D And C Red No.22 Vomiting 05/16/2007 Medications cholecalciferol (VITAMIN D) 1,000 unit capsule Take 1,000 units by mouth once daily. 0 8 Active melatonin 1 mg Take 1 tablet by mouth at bedtime. 0 8 Active aspirin (ECOTRIN) 81 mg enteric coated tablet Take 81 mg by mouth once daily. Active citalopram (CELEXA) 10 mg tabletIndications:A nxiety state Take 1 Tablet (10 mg) by mouth at bedtime. 90 Tablet 3 4 Active apixaban (Eliquis) 5 mg tabletIndications:p revention of venous thromboembolism recurrence Take 1 Tablet (5 mg) by mouth two times daily. 60 Tablet 4 Active amLODIPine 2.5 mg tabletIndications:H TN (hypertension) Take 1 Tablet (2.5 mg) by mouth once daily. 90 Tablet 3 5 Active LORazepam 1 mg tabletIndications:F ear of flying Take 1 mg tablet orally 1 hour prior to flight. May repeat 1 dose if needed in 4-6 hours. 10 Tablet 5 Active exemestane (AROMASIN) 25 mg tablet Take 25 mg by mouth. 5 09/26/19 27 Active LORazepam 1 mg tabletIndications:F ear of flying Take 1 mg tablet orally 1 hour prior to flight. May repeat 1 dose if needed in 4-6 hours. 10 Tablet 4 05/23/20 25 Discontin ued(Reord er (E-cancel not sent)) Active Problems Problem Noted Date Diagnosed Date Monoallelic mutation of CHEK2 gene in female pat ient 09/11/2024 Overview (09/11/2024): CHEK2 c.1100del (p.Nai233Remux*15) Primary cancer of right breast 08/28/2024 Cancer Staging:Clinical stage from 08/28/2024:Stage IA(cT1b, cN0, cM0, G2, ER+, AZ+, HER2-) - Signed by Kian English MD [...] pre gnancy of elderly multigravida 08/28/2009 07/18/2014 Immunizations Immunization Administration Dates Next Due COVID-19 vaccine (AnaBios NTStylr 30mcg/0.3mL) [facility] [place] 12/27/2020,12/06/2020 Hepatitis A (Adult) [...] Sex Assigned at Female 08/27/2021 9:49 AM CHICKEN HANDLER Legal Sex Female 5:23 AM CHICKEN HANDLER Gender Identity Female 08/27/2021 9:49 AM CHICKEN HANDLER Sexual Orientation Straight 08/27/2021 9: 49 AM CHICKEN HANDLER 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 Peterson ie Delivery Location:[place] Last Filed Vital Signs Vital Sign Reading [...] 165.1 cm (5' 5) 07/19/2024 12:03 PM CHICKEN HANDLER Body Mass Index 30.07 07/19/2024 12:03 PM CHICKEN HANDLER Plan of Treatment Health Maintenance Due Date Last Done Comments Hepatitis C screening for ag e 18-79 1988 Pneumococcal series for age 50+ (1 of 2 - PCV) 1989 Zoster (shingles) series for age 50+ (1 of 2) 1989 Influenza Vaccine (#1) 2025 8, 09/21/2017, 06/24/2016, Additional history exists BMI (ht [...] 12/22/2006 Pap test for age 21-65 07/19/2029 4, 07/19/2024, 07/05/2018, Additional history exists Colonoscopy through age 75 02/01/203302/01, 02/01/2023, 12/13/2017, Additional history exists RSV vaccine for adults or (1 - 1-dose 75+ series) 2045 HIV for age 15-65 Completed 08/28/2009 Hepatitis B series for 19+ Completed 11/24, 11/03/2002, 12/13/1997 Procedures Procedure Name Priority Date/Time Associated Diagnosis Comments XR MAMMO JULIEN UNI ADDL VIEWS RIGHT ELIAS 08/11/2024 1:43 PM CHICKEN HANDLER Abnormal mammogram LIPID PANEL W REFLEX MEASURED LDL Routine 07/19/2024 12:39 PM CHICKEN HANDLER Screening, lipid MARKETING PROGRAM COORDINATOR THIN PREP PAP SCREEN IMAGED Routine 07/19/2024 12:33 PM CHICKEN HANDLER Pap smear for cervical cancer screening COLONOSCOPY SCREENING Routine 02/01/2023 12:00 AM CDT Encounter for screening colonoscopy ANTI HIV 1/2 Routine 08/28/2009 4:03 PM CHICKEN HANDLER Supervision of High-Risk of Elderly Multigravida (HC) from Last 3 Months or Most Recently Relevant to Health Maintenance Results * XR MAMMO JULIEN UNI ADDL VIEWS RIGHT (08/11/2024 1:43 PM CHICKEN HANDLER) Anatomical Region Laterality Modality BREASTS, Breast Right Mammograph y Impressions 08/11/2024 4:06 PM CHICKEN HANDLER Suspicious 6 x 9 x 9 mm [...] your referring provider. Narrative 08/11/2024 4:06 PM CHICKEN HANDLER As a result of the [employer] [...] W REFLEX MEASURED LDL (07/19/2024 12:39 PM CHICKEN HANDLER) CHOLESTEROL, TOTAL 194 <200 mg/dL [facility] HDL CHOLESTEROL 46(L) > OR = 50 mg/dL [facility] TRIGLYCERIDES 203(H) <150 mg/dL [facility] Comment: If a non-fasting specimen was collected, consider repeat triglyceride testing on a fasting specimen if clinically indicated. Jayshree et al. J. of Clin. Lipidol. 2015;9:129-169. LDL-CHOLESTEROL 116(H) mg/dL (calc) [facility] Comment: Reference range: <100 Desirable range <100 mg/dL for primary prevention; <70 mg/dL for patients with CHD or diabetic patients with > or = 2 CHD risk factors. LDL-C is now calculated using the Emery calculation, which is a validated novel method providing better accuracy than the Friedewald equation in the estimation of LDL-C. Luigi SS et al. CAMELIA. 2013;310(19): 5390-6853 (http://education.Thumbplay/faq/JFE013) CHOL/HDLC RATIO 4.2 <5.0 (calc) [facility] NON HDL CHOLESTEROL 148(H) <130 mg/dL (calc) [facility] Comment: For patients with diabetes plus 1 major ASCVD risk factor, treating to a non-HDL-C goal of <100 mg/dL (LDL-C of <70 mg/dL) is considered a therapeutic option. Blood BLOOD SPECIMEN / Unknown 07/19/2024 12:39 PM CHICKEN HANDLER 07/19/2024 12:40 PM CHICKEN HANDLER Narrative [facility] - 07/20/2024 3:33 AM CHICKEN HANDLER FASTING:YES FASTING: YES us Deann Zhang DO CHEMISTRY Final Result [place] [facility] [address] [place] [address], [facility] [address] [place] [address] * MARKETING PROGRAM COORDINATOR THIN PREP PAP SCREEN IMAGED (07/19/2024 12:33 PM CHICKEN HANDLER) Case Report Gynecologic Cytology Report Case: [id number] Authorizing Provider: Deann Zhang DO Collected: 07/19/2024 1233 Ordering Location: [facility] Received: 07/19/2024 1330 Clinic First Screen: Kaye Lee Rescreen: Lisbeth Fishman Specimen: MARKETING PROGRAM COORDINATOR ThinPrep Vial Screening, Cervical 07/27/2024 8:25 AM CHICKEN HANDLER [facility] INTERPRETATION/ RESULT NEGATIVE FOR INTRAEPITHELIAL LESION OR MALIGNANCY (NIL) (none) 07/27/2024 8:25 AM CHICKEN HANDLER [facility] at 0825 CHICKEN HANDLER SPECIMEN ADEQUACY Satisfactory for evaluation No endocervical component seen 07/27/2024 8:25 AM CHICKEN HANDLER [facility] HPV REQUEST HPV and PAP 07/27/2024 8:25 AM CHICKEN HANDLER [facility] Date of LMP 06/23/24 07/27/2024 8:25 AM CHICKEN HANDLER [facility] Last Pap Date 07/05/18 07/27/2024 8:25 AM CHICKEN HANDLER [facility] Last Pap Result NIL 8:25 AM CHICKEN HANDLER [facility] Abnormal Pap or [place] Bx in last 5 years No 07/27/2024 8:25 AM CHICKEN HANDLER [facility] Menstrual Status Regular Periods 07/27/2024 8:25 AM CHICKEN HANDLER [facility] [place] Bx Done Today No 07/27/2024 8:25 AM CHICKEN HANDLER [facility] ENTRAL [facility] Additional Information None given 07/27/2024 8:25 AM CHICKEN HANDLER [facility] ENTR[facility] Comment: [facility] Central Laboratory - [address], [place] [address] and [facility] Laboratory - [address] [place] [address], [place] [address] and [facility] - [address] [address] [place] [address] Interpreted at [facility] Central Laboratory - [address], [place] [address] Automated Review Successful 07/27/2024 8:25 AM [facility] Comment:Specimen processed s uccessfully by automated apartment assistant manager device, Network Vision[employer] Imaging System, [employer] ANCILLARY TESTING MARKETING PROGRAM COORDINATOR HPV Ordered, Please see separate report 07/27/2024 8:25 AM CHICKEN HANDLER [facility] Note The pap test is a screening technique, not a diagnostic procedure. It is used primarily to screen for squamous cancers and precursor lesions. Published studies have shown that it is subject to both false negative and false positive results. The pap test should not be used as the sole means to diagnose or exclude pre-malignant and malignant lesions. 07/27/2024 8:25 AM [facility] Other (Cervical) Non-Blood / Unknown 07/19/2024 12:33 PM CHICKEN HANDLER 07/19/2024 1:30 PM CHICKEN HANDLER Deann Zhang DO PATHOLOGY/CYTOLOGY Final Resul t [facility] [address] [place] [address], [place] * COLONOSCOPY SCREENING (02/01/2023 12:00 AM CDT) Shanelle Renee MD GI PROCEDURE ORD Claudia l Result * ANTI HIV 1/2 [30660.0] (08/28/2009 4:03 PM CHICKEN HANDLER) ANTI HIV 1/2 Non-reacti ve [facility] Blood specimen (specimen) BLOOD SPECIMEN / Unknown 08/28/2009 4:03 PM CHICKEN HANDLER 08/28/2009 3:54 PM CHICKEN HANDLER Lily Feliciano MD SEND OUTS Final Result [facility] INTERNAL ZIP [id number] [address] from Last 3 Months or Most Recently Relevant to Health Maintenance Insurance [facility] [employer] [facility] * Guarantor: Favian Patel Account Type Relation to Patient Date of Phone Billing Address Personal/Family 1999 [address] [place] [id number] Advance Directives * Full Code (Latest Code Status on File) Date Activated Date Inactivated Comments 03/21/2024 8:18 AM 03/22/2024 2:08 AM Question Answer Comments Code Status Discussion: Reviewed Preferences Care Teams Cell Biology Scientist Relationship Specialty Start Date End Date Shanelle Renee MD [address] [facility] [place] [address] PCP - General Family Practice 01/25/18 Roxy Whaley, RN [address] [address] Nurse Navigator - Oncology Registered Nurse 08/24/24 Kian English MD [address] [address] Surgery - Oncology 08/24/24
--- OUTSIDE RECORDS SUMMARY | 2025-06-13 11:17 | XMS_ITS | Clinical Summary ---
Author Organization [facility] Address [address] [place] [address] Care Team Providers Care Closing Manager Name Role Phone Shanelle Renee Primary Care Provider [phone] Allergies Active Allergy Reactions Criticality Noted Date [...] C SCREENING 1988 PAP 1991 LIPID 2010 PNEUMOCOCCAL VACCINE 50+ YEARS (1 of 1 - PCV) 2020 ZOSTER VACCINE (1 of 2) 2020 MAMMO SCREENING 07/29/2024 07/29/2022 PHQ-2 (once per calendar year) 2024 COVID-19 VACCINE (3 - 2024- season) 2025 12/27/2020, 12/06/2020 INFLUENZA VACCINE (#1) 2025 8, 09/21/2017, 06/24/2016, Additional history exists DIABETES SCREENING 11/02/2025 11/02/2022 DTAP/TDAP/TD VACCINE (3 - Td or Tdap) 09/27/2027 09/27/2017, 06/21/2007, 12/13/1997 HEPATITIS B VACCINE Completed 11/25/2011, 11/03/2002, 12/13/1997 HPV VACCINE (No Doses Required) Completed MENINGITIS VACCINE Aged Out No longer eligible based on [...] - BLOOD ORDERABLES Final Re sult LABORATORY [facility] [address] 1[address] floor, Room [address] [place] [address], [facility] [phone] from Last 3 Months or Most Recently Relevant to Health Maintenance Care Teams Closing Manager Relationship Specialty Start Date End Date Shanelle Renee [address] [place] [phone] PCP - General Family Medicine 11/02/22
--- OUTSIDE RECORDS SUMMARY | 2025-06-13 11:17 | XMS_ITS | Clinical Summary ---
Author Organization [facility] Address [address] [place] [address] Care Team Providers Care Construction Trades Contractor Name Role Phone Elsewhere, Pcp Primary Care Provider Unavailabl e Source Comments Patient records contain information from all sites at [facility]. For routine questions regarding patient records, call [phone] during business hours, M-F 8:00 AM - 5:00 PM Central Time. Record requests for emergency care only can be directed to [phone] at any time.[facility] Allergies Active Allergy Reactions Criticality Noted Date [...] represent a complete record from that organization. cholecalciferol (Vitamin D3) 25 mcg (1,000 Unit) [...] bedtime as needed for sleep. 8 Active sennosides-docu sate sodium (Senna with Docusate Sodium) 8.6-50 mg per tablet Take 1 tablet by mouth 2 (two) times a day. 100 tablet 10/31/2024 3:20 PM CDT 5 Active acetaminophen (TylenoL) 500 mg tablet Take 2 tablets (1,000 mg total) by mouth every 6 (six) hours as needed for pain. 5 Active oxyCODONE (Roxicodone) 5 mg immediate release tabletIndicatio ns:Acute Pain Take 1 tablet (5 mg total) by mouth every 4 (four) hours as needed for pain Indication: Acute Pain. 10 tablet 5 Active letrozole (Femara) 2.5 mg tablet Take 1 tablet (2.5 mg total) by mouth daily. Take with or without food. 90 tablet 6 5 Active Additional Information Patient not taking.Reason: Other, Reported on 04/30/2025 lidocaine viscous (lidocaine) 2 % mucosal solution Apply 5 mL to the mouth or throat 4 (four) times a day. Mix 5 ml Lidocaine with 5 ml of water and use syringe or straw to back of throat. Wait 10-20 minutes to eat or drink. 100 mL 1 5 Active Eliquis 2.5 mg tablet TAKE 1 TABLET(2.5 MG TOTAL) BY MOUTH 2 TIMES A DAY. TAKE FIRST DOSE THE MORNING OF 11/02 180 tablet 3 5 Active amLODIPine (Norvasc) 2.5 mg tablet Take 2.5 mg by mouth daily. 5 Active Vitron-C 65 mg iron- [address] tablet TAKE 1 TABLET BY MOUTH DAILY. DO NOT CRUSH OR CHEW 90 tablet 5 Active exemestane (Aromasin) 25 mg tablet Take 1 tablet (25 mg total) by mouth daily. Take after a meal. 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 on 11/08/2024 Hypertension Essential Primary 07/25/2024 Dyspnea On Exertion 07/25/2024 Patent Foramen Ovale 07/25/2024 Migraine Headache 11/25/2011 Encounters * This document contains information received from the source organization and may not represent a complete record from that organization. Date Type Department Care Team Description 06/13/2025 Nurse Triage Department of Family Medicine, [facility] in [address] [phone] Marilu Bennett R.N. Hypertension 05/04/2025 9:00 AM CDT - 05/04/2025 9:21 AM CDT Hospital Encounter Department of Radiation Oncology in [place], [place] [address] [place] [address] Regina Martell, REMY, P.A.-C. 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 Malignant Neoplasm Of Breast Upper Outer Quadrant Female Right (HCC) (Primary Dx) 04/30/2025 9:00 AM CDT Comprehensive Visit Department of Physical Medicine and Rehabilitation in [place], [place] [address] [place] [address] Brie Durant M.D. 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 04/05/2025 Clinical Communication Department of Oncology in [place], [place] [address] [place] [phone] Leonarda Box R.N. Disability Parking Pass 04/04/2025 2:40 PM CDT Office Visit Department of Oncology in [place], [place] [address] [place] [phone] Meghna Soto M.B., B.Ch. Malignant Neoplasm Of Breast Upper Outer Quadrant Female Right (HCC) (Primary Dx) 04/04/2025 10:40 AM CDT Office Visit Department of Oncology in [place], [place] [address] [place] [phone] Brooklyn Lombardi P.A.-C., M.S. 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 04/01/2025 Refill Department of Oncology in [place], [place] [address] [place] [phone] Brooklyn Lombardi P.A.-C., M.S. Med Refill ( Vitron-C) 03/27/2025 11:15 AM CDT Clinical Communication Virtual Review in [place], [place] [address] [place] [address] Pre-visit Intake 03/21/2025 10:56 AM CDT - 03/21/2025 11:59 PM CDT Hospital Encounter Department of Laboratory Medicine and Pathology, [facility] in [place], [place] [address] [place] [address] Brooklyn Lombardi P.A.-C., M.S. 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) Discharge Disposition: Home or Self Care from Last 3 Months Family History Medical History Relation Name Comments ADD / ADHD Daughter 1 felisa michaelsch Autism test May - Felisa is mild support needs but is on the spectrum Anxiety disorder Daughter 1 felisa janine POTS Daughter 2 Ml [place] Diagnosed at age 19 Anxiety disorder Father pal rawn Coronary artery disease Father pal rawn Depression Father pal rawn Diabetes Father pal rawn Hyperlipidemia (high cholesterol) Father pal rawn Hypertension Father pal rawn Obesity Father pal rawn Skin cancer Father pal rawn removed cancero us area Sleep apnea Father pal rawn Cancer Maternal Grandmother prieto sanam osteosa rcoma Breast cancer (in one breast) Mother arnoldo raphael in 1976 Clotting/ bleeding disorder Paternal Grandmother frederic rawn Colon cancer Paternal Grandmother frederic raphael at age 99 Colon polyps Paternal Grandmother frederic rawn Coronary artery disease Paternal Grandmother frederic raw n Diabetes Paternal Grandmother frederic rawn Hypertension Paternal Grandmother frederic rawn Lung cancer Paternal Grandmother frederic raphael at age 98 Stroke Paternal Grandmother frederic raphael early o nset strokes starting at age 35 managed wit ADD / ADHD Son naty patel Relation Name Status Comments Daughter 1 felisa janine Alive Daughter 2 Ml [place] Alive Father pal rawn Alive Maternal Grandmother prieto marion Alive Mother arnoldo raphael Alive Paternal Grandmother frederic raphael Alive Son naty patel Alive Social History Tobacco Use Types Packs/Day Years Used Date Smoking Tobacco: Never Passive Smoke Exposure: Past Smokeless Tobacco: Never Tobacco Cessation:Counseling Given: Not Answered Alcohol Use Standard Drinks/Week Comments Never 0 (1 standard drink = 0.6 oz pur e alcohol) [facility] Utilities Answer Date Recorded In the past 12 months has e [employer], gas, oil, or water [place] threatened to shut off services in your [...] medical center place to live 10/30/2024 Comments Unknown Sex and Gender Information Value Date Recorded Sex Assigned at Female 07/25/2024 9:49 AM DOOR SERVICEMAN Legal Sex Female 6:01 PM DOOR SERVICEMAN Gender Identity Female 07/25/2024 9:49 AM DOOR SERVICEMAN Sexual Orientation Straight 07/25/2024 9: 49 AM DOOR SERVICEMAN Last Filed Vital Signs Vital Sign Reading Time Taken Comments Blood Pressure 125/89 04/30/2025 10:04 AM CDT Pulse 66 04/30/2025 10:04 AM CDT Temperature 36.5 C (97.7 F) 04/30/2025 10:04 AM CDT Respiratory Rate 16 04/30/2025 10:04 AM CDT Oxygen Saturation 96% 04/04/2025 10:46 AM CDT Inhaled Oxygen Concentration - - Weight 79 kg (174 lb 2.6 oz) 04/04/2025 10:46 AM CDT Height 167.7 cm (5' 6.02) 04/04/2025 10:46 AM C DT Body Mass Index 28.09 04/04/2025 10:46 AM CDT Plan of Treatment Upcoming Encounters Date Type Department Care Team (Latest Contact Info) Description 06/27/2025 11:00 AM DOOR SERVICEMAN Appointment Department of Laboratory Medicine and Pathology, [facility], in [place], [place] [address] [place] [phone] Brooklyn Lombardi P.A.-C., M.S. [address] [place] [phone] 07/23/2025 10:30 AM DOOR SERVICEMAN Infusion Department of Infusion Therapy in [place], [place] [address] [place] [phone] Meghna Soto M.B., B.Ch. [address] [place] [phone] 08/17/2025 8:30 AM DOOR SERVICEMAN Clinical Communication Virtual Review in [place], [place] [address] [place] [phone] 08/22/2025 10:20 AM DOOR SERVICEMAN Office Visit Department of Oncology in [address] [phone] Meghna Soto M.B., B.Ch. [address] [place] [phone] Health Maintenance Due Date Last Done Comments CT Colonography 1970 Cervical/Vaginal Cancer Screening 1970 Cologuard 1970 FIT 1970 HIV Screening 1970 Hepatitis C Screening 1970 Lipid (Cholesterol) Screening 1970 Office Visit for Blood Pressure Check / Re-check 1970 Pneumococcal vaccine (50+ years) (1 of 2 - PCV) 1989 Zoster Vaccines (1 of 2) 1989 COVID-19 Vaccine (3 - Pfizer risk series) 01/24/2021 12/27/2020, 12/06/2020 Influenza Vaccine (#1) 2025 8, 09/21/2017, 06/24/2016, Additional history exists Fasting Glucose for Diabetes Screening 07/19/2027 07/19/2024, 11/02/2022, 06/16/2021, Additional history exists DTaP,Tdap,and Td Vaccines (3 - Td or Tdap) 09/27/2027 09/27/2017, 06/21/2007 Colonoscopy 02/01/2033 02/01/2023 Colorectal Cancer Screening 02/01/2033 Hepatitis B Vaccines Completed 11/25/2011, 11/03/2002, 12/13/1997 Mammogram Discontinued 08/15/2024, 07/17, 08/02/2024, Additional history exists Depression Screening (Annual PHQ-2) Completed 02/05/2025, 02/05/2025 HPV Vaccines Aged Out No longer eligi ble based on patient's age to complete this topic IPV Vaccines Aged Out No longer eligi ble based on patient's age to complete this topic Medical Devices Implanted Type Area Timber Estimator Device Identifier Shelf Expiration Date Model / Serial / Lot Clp Hrzn Ti 6 Jenni Elise Gonzalo - [id number] Implanted:Qt y: 1 on 10/30/2024 by Brie Durant M.D. at [facility] Hardware e.g. pins/screws /rods [employer] [id number] / / Clp Hrzn Ti 6 Jenni Elise Gonzalo - [id number] Implanted:Qt y: 1 on 10/30/2024 by Brie Durant M.D. at [facility] Hardware e.g. pins/screws /rods [employer] [id number] / / Imaging Marker-08/15 Implanted: (Quantity not on file) Imaging Marker Right: Breast Mrk Brst Biop Hyd Opn Cl - [id number] Implanted:Qt y: 1 on 09/15/2024 by K[facility] M[facility]D. at [facility] Right: Breast Mammotome [id number] 06/08/2027 4009-08-23- T3 / / [id number] Mrk Brst Biop Atec Trm - [id number] Implanted:Qt y: 1 on 09/15/2024 by Kj Wong M.D. at [facility] [place] Imaging Marker Right: Breast [employer] [id number] 04/18/2026 TRIMARKTD 13-MR / / [id number] Mrk Brst Biop Atec Trm - [id number] Implanted:Qt y: 1 on 09/15/2024 by Kj Wong M.D. 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) IRON AND TOT IRON-BINDING CAPACITY, S/P Routine 03/21/2025 11:08 AM CDT Malignant Neoplasm Of Breast Upper Outer Quadrant Female Right (HCC) 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) 25-HYDROXYVITAMIN D2 AND D3, S Routine 03/21/2025 11:08 AM CDT Malignant Neoplasm Of Breast Upper Outer Quadrant Female Right (HCC) 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 M.S. LAB BLOOD ADD-ON Final Result Performing Organization Address [facility] Co de Phone Number [facility] [address] [place] [address], [facility] [place][note 2] [address] [place] [address] * 25-Hydroxyvitamin D2 and D3 (03/21/2025 11:08 AM CDT) [facility] 25-Hydroxy D2 <4.0 ng/mL 03/23/2025 1:31 PM CDT SDS 25-Hydroxy D3 26 ng/mL 03/23/2025 1:31 PM CDT SDS 25-Hydroxy D Total 26 ng/mL 2024 1:31 PM CDT [facility] Comment: ----REFERENCE VALUE---- 25-HYDROXY D TOTAL (D2+D3) Optimum levels in the healthy population are 20-50. ----ADDITIONAL INFORMATION---- This test was developed and its performance characteristics determined by [facility] in a manner consistent with CLIA requirements. This test has not been cleared or approved by the U.S. Food and Drug Administration. Blood (Blood, Venous) 03/21/2025 11:08 AM CDT 03/22/2025 7:25 AM CDT Brooklyn Lombardi P.A.-C. M.S. LAB BLOOD ADD-ON Final Result Performing Organization Address City/[facility]/ZIP Co de Phone Number [facility] [address] [place] [address] [facility] [address] [place] [address] [place] [address] * Ferritin (03/21/2025 11:08 AM CDT) Ferritin, S 41 11 - 328 mcg/L 03/21/2025 12:22 PM CDT DTL Blood (Blood, Venous) 03/21/2025 11:08 AM CDT 03/21/2025 11:32 AM CDT Brooklyn Lombardi P.A.-C. M.S. LAB BLOOD ADD-ON Final Result Performing Organization Address [facility] Co de Phone Number [facility] [address] [place] [address], [facility] DTL [facility] [address] [place] [address] * XR MAMMO POST CLIP PLCMT RT-Outside Mammogram (08/15/2024 1:50 PM DOOR SERVICEMAN) Narrative [facility] - 08/23/2024 1:52 PM DOOR SERVICEMAN This order has been created and auto-finalized to support the import of outside images. If available, original interpretation can be found on the Media Tab in Chart Review, in Document Viewer, as an image in QREADS or as an Addendum. If a re-interpretation or overread is required please follow defined workflow. Provider Not In System IMG BI PROCEDURES Final R esult Performing Organization Address [facility] Co de Phone Number [facility] NA from Last 3 Months or Most Recently Relevant to Health Maintenance Insurance [facility] Advance Directives For more information, please contact: [phone] * Full Code (Latest Code Status on File) Date Activated Date Inactivated Comments 10/30/2024 6:22 PM 10/31/2024 5:13 PM Question Answer Comments Full Code: Discussed * Full Code Date Activated Date Inactivated Comments 10/30/2024 7:31 AM 10/30/2024 6:22 PM Question Answer Comments Full Code: Not Discussed Due to: Not medically appropriate Care Teams Construction Trades Contractor Relationship Specialty Start Date End Date Elsewhere, Pcp PCP - General Internal Medicine 07/25/24
--- OUTSIDE RECORDS SUMMARY | 2025-06-13 11:17 | XMS_ITS | Encounter Summary ---
Author Organization [facility] Address [address] [place] [address] Care Team Providers Care Cut File Clerk Name Role Phone Elsewhere, Pcp Primary Care Provider Unavailabl e Reason for Visit * Reason Onset Date Comments Disability Parking Pass 04/05/2025 Encounter Details Date Type Department Care Team (Latest Contact Info) Description 04/05/2025 Clinical Communication Department of Oncology in [place], [place] [address] [place] [phone] Leonarda Box R.NNatalia [address] [place] [phone] Disability Parking Pass Social History Tobacco Use Types Packs/Day Years Used Date Smoking Tobacco: Never Passive Smoke Exposure: Past Smokeless Tobacco: Never Alcohol Use Standard Drinks/Week Comments Never 0 (1 standard drink = 0.6 oz pur e alcohol) [facility] Utilities Answer Date Recorded In the past 12 months has e [employer], gas, oil, or water [employer] threatened to shut off services in your [...] general hospital place to live 10/30/2024 Comments Unknown Sex and Gender Information Value Date Recorded Sex Assigned at Female 07/25/2024 9:49 AM CHINA PAINTER Legal Sex Female 6:01 PM CHINA PAINTER Gender Identity Female 07/25/2024 9:49 AM CHINA PAINTER Sexual Orientation Straight 07/25/2024 9: 49 AM CHINA PAINTER documented as of this encounter Miscellaneous Notes * Telephone Encounter - Leonarda Box R.N. - 04/05/2025 9:59 AM CDT ----- Message from Chris Montero, B.Ch. sent at 04/04/2025 3:31 PM CDT ----- Hello. This patient has active cardiac issues and significant fatigue/arthralgias on endocrine therapy forbreast cancer. She is requesting a disability car parking pass. Thanks for your help! documented in this encounter Plan of Treatment Upcoming Encounters Date Type Department Care Team (Latest Contact Info) Description 06/27/2025 11:00 AM CHINA PAINTER Appointment Department of Laboratory Medicine and Pathology, [facility], in [place], [place] [address] [place] [phone] Brooklyn Lombardi P.A.-C., M.S. [address] [place] [phone] 07/23/2025 10:30 AM CHINA PAINTER Infusion Department of Infusion Therapy in [place], [place] 200 [place] [phone] Meghna Soto M.B., B.Ch. [address] [place] [phone] 08/17/2025 8:30 AM CHINA PAINTER Clinical Communication Virtual Review in [place], [place] 200 [place] [phone] 08/22/2025 10:20 AM CHINA PAINTER Office Visit Department of Oncology in [address] [phone] Meghna Soto M.B., B.Ch. [address] [place] [phone] documented as of this encounter Visit Diagnoses Not on filedocumented in this encounter Additional Health Concerns Assessment Noted Time PHQ-9 Depression Total Score: 5 02/06/20 25 2:44 PM CDT documented as of this encounter Care Teams Cut File Clerk Relationship Specialty Start Date End Date Elsewhere, Pcp PCP - General Internal Medicine 07/25/24 documented as of this encounter
--- OUTSIDE RECORDS SUMMARY | 2025-06-13 11:18 | XMS_ITS | Encounter Summary ---
Author Organization [facility] Address [address] [place] [id number] Care Team Providers Care Manager [employer] Name Role Phone Elsewhere, Pcp Primary Care Provider Unavailabl e Reason for Visit * Reason Onset Date Comments Hypertension 06/13/2025 Encounter Details Date Type Department Care Team (Late st Contact Info) Description 06/13/2025 Nurse Triage Department of Family Medicine, [facility] in [place], [place] [address] [place] [phone] Paider, Marilu Zimmer R.N. [address] [place] [phone] Hypertension Social History Tobacco Use Types Packs/Day Years Used Date Smoking Tobacco: Never Passive Smoke Exposure: Past Smokeless Tobacco: Never Alcohol Use Standard Drinks/Week Comments Never 0 (1 standard drink = 0.6 oz pur e alcohol) [facility] Utilities Answer Date Recorded In the past 12 months has e [employer], gas, oil, or water [employer] threatened to shut off services in your [...] your living situation today? [facility] 10/30/2024 Comments Unknown Sex and Gender Information Value Date Recorded Sex Assigned at Female 07/25/2024 9:49 AM FEED RESEARCH TECHNICIAN Legal Sex Female 6:01 PM FEED RESEARCH TECHNICIAN Gender Identity Female 07/25/2024 9:49 AM FEED RESEARCH TECHNICIAN Sexual Orientation Straight 07/25/2024 9: 49 AM FEED RESEARCH TECHNICIAN documented as of this encounter Miscellaneous Notes * Telephone Encounter - Paider, Marilu Zimmer R.N. - 06/13/2025 9:45 AM CDT Chief Complaint / Reason for Call Patient is a 54 y.o. female calling regarding Hypertension. Assessment Concern: Headaches, high blood pressure. Went to the gym and now she has a lump in her throat - more down into her chest. BP is 158/105. Headache is rated 6- 7/10 then took tylenol and it is now a 4/10. Present for: Today Home cares tried: Tylenol Calling to request: Advice The recommended disposition is Call EMS 911 Now. Michael patient advised to present to their nearest emergency department for further recommendation oftheir concerns. Reason for Disposition [1] Chest pain lasts > 5 minutes AND [2] age > 30 AND [3] one or more cardiac risk factors (e.g., diabetes, high blood pressure, high cholesterol, obesity with BMI 30 or higher, smoker, or strong family history of heart disease) Protocols used: Chest Jngs-Jyymv-WK Care Advice Patient/Caregiver understands and will follow care advice?: Yes, able to teach back Chest Wypz-Dfczs-NE Nurse Marilu Hull Jun 13, 2025 09:52 AM Care Advice CALL EMS 911 NOW: * Immediate medical attention is needed. You need to hang up and call 911 (or an ambulance). * Triager Discretion: I'll call you back in a few minutes to be sure you were able to reach them. CARE ADVICE given per Chest Pain (Adult) guideline. documented in this encounter Plan of Treatment Upcoming Encounters Date Type Department Care Team (Latest Contact Info) Description 06/27/2025 11:00 AM FEED RESEARCH TECHNICIAN Appointment Department of Laboratory Medicine and Pathology, [facility], in [place], [place] [address] [place] [phone] Brooklyn Lombardi P.A.-C., M.S. [address] [place] [phone] 07/23/2025 10:30 AM FEED RESEARCH TECHNICIAN Infusion Department of Infusion Therapy in [address] [phone] Meghna Soto M.B., B.Ch. [address] [place] [phone] 08/17/2025 8:30 AM FEED RESEARCH TECHNICIAN Clinical Communication Virtual Review in [address] [phone] 08/22/2025 10:20 AM FEED RESEARCH TECHNICIAN Office Visit Department of Oncology in [address] [phone] Meghna Soto M.B., B.Ch. [address] [place] [phone] documented as of this encounter Visit Diagnoses Not on filedocumented in this encounter Additional Health Concerns Assessment Noted Time PHQ-9 Depression Total Score: 5 02/06/20 25 2:44 PM CDT documented as of this encounter Care Teams Manager Six Sigma Relationship Specialty Start Date End Date Elsewhere, Pcp PCP - General Internal Medicine 07/25/24 documented as of this encounter
[2025-06-13 11:31] LABS: Hematocrit* 42.9 % (33.0-51.0); Hemoglobin* 14.3 gm/dL (12.0-16.0); Immature Granulocytes Abs Auto 0.01 K/uL (0.00-0.30); Immature Granulocytes Pct Auto 0.2 %; Lymphocytes Absolute Auto 1.31 K/uL (0.90-2.90); Mean Corpuscular HGB Conc 33 gm/dL (32-36); Mean Corpuscular Hemoglobin 29 pg (26-34); Mean Corpuscular Volume 86 fL (80-100); RDW Coefficient of Variation % 12.6 % (11.5-15.5); Red Blood Count* 5.02 m/uL (4.00-5.20); White Blood Count* 4.82 K/uL (4.50-11.00)
[2025-06-13] MEDS: ONDANSETRON 2 MG/ML inj 4 MG IVP (11:31)
[2025-06-13 11:33] VITALS: BP 124/103
[2025-06-13 11:39] LABS: Slide Review Reflex No
[2025-06-13 11:39] LABS: Troponin, Point-of-Care* 0.00 ng/ml (0.01-0.04)
[2025-06-13 12:02] VITALS: BP 137/91
[2025-06-13 12:04] LABS: Chloride* 103 mmol/L (96-114); Sodium* 140 mmol/L (135-149)
[2025-06-13 12:05] LABS: Potassium* 3.8 mmol/L (3.6-5.1)
[2025-06-13 12:07] LABS: Blood Urea Nitrogen* 11 mg/dL (7-30); Creatinine* 0.7 mg/dL (0.5-1.5); Est. Creatinine Clearance* 82.67; Estimated Glomerular Filt Rate 103 ml/min
[2025-06-13 12:08] LABS: Anion Gap 6 mEq/L (7-15); Calcium* 9.7 mg/dL (8.4-10.6); Carbon Dioxide* 31 mmol/L (20-32); Glucose* 79 mg/dL (60-115)
[2025-06-13 12:24] LABS: NT Pro B Type NatriureticPept* 32 pg/mL (See Note)
[2025-06-13 12:32] VITALS: BP 140/79
--- NOTE | 2025-06-13 12:32 | CRLHL7_ITS ---
For Patients: As a result of the Century Cures Act, medical imaging exams and procedure reports are released immediately into your electronic medical record. You may view this report before your referring provider. If you have questions, please contact your health care provider. INDICATION: Bilateral mastectomy in November, history of PFO, pain. TECHNIQUE: Chest 1 view. COMPARISON: 08/01/2024. FINDINGS: Cardiovascular and mediastinum: Heart size and vasculature are normal in caliber and appearance. Lungs and pleural spaces: Lungs are clear. No pleural effusion, or pneumothorax. Bones and soft tissues: New bilateral chest wall surgical clips. Otherwise, unremarkable for age. IMPRESSION: No evidence of an acute pulmonary process. Dictated by Brady Rubio MD @ 06/13/2025 12:49:55 PM (Electronically Signed)
[2025-06-13] MEDS: diphenhydrAMINE 25 MG in 0.9 % SODIUM CHLORIDE 100 ml 100 ML 301.5 MG IVPB (12:47)
[2025-06-13] MEDS: KETAMINE 50 MG/0.5 ML 20 MG in 0.9 % SODIUM CHLORIDE 100 ml 100 ML 200.4 MG IVPB (12:49)
== END 2025-06-13 13:51 | disposition home or self-care (01) ==
PROVIDERS: Emergency Provider Family Medicine; PCP Family Medicine
DX: R51.9 Headache, unspecified (principal); R07.89 Other chest pain; Z85.3 Personal history of malignant neoplasm of breast; Z92.3 Personal history of irradiation; Z90.13 Acquired absence of bilateral breasts and nipples; Z86.73 Personal history of transient ischemic attack (TIA), and cerebral infarction without residual deficits; Z79.01 Long term (current) use of anticoagulants
CPT/HCPCS: 36415; 71045; 80048; 83880; 84484; 85025; 86140; 96361; 96365; 96368; 96375; 99284; 99285; J1200; J1885; J2405; J3490; J7030